=== PATIENT | male | born 1990 | race Caucasian/White ===

== ENCOUNTER 2017-05-10 15:42 | Observation (INO) | payer OTHER ==
[2017-05-10] MEDS ORDERED: ONDANSETRON 4 MG/2 ML VIAL ONE (16:05)
[2017-05-10] MEDS ORDERED: NA CHLORIDE 0.9% 1,000 ML ONE ×3 (16:05→17:32)
[2017-05-10] MEDS ORDERED: LORazepam 2 MG/ML VIAL ONE ×2 (16:09→21:22)
[2017-05-10] MEDS ORDERED: ROCURONIUM 50 MG/5 ML VIAL IV ONE (16:15)
[2017-05-10] MEDS ORDERED: PROPOFOL 1,000 MG/100 ML VIAL IV ONE ×2 (16:17→21:31)
[2017-05-10] MEDS ORDERED: MIDAZOLAM HCL 2 MG/2 ML INJ ONE ×2 (16:21→18:37)
[2017-05-10 16:45] LABS: Absolute Lymphocytes (CBC) 6.9 K/uL (0.7-4.9); Absolute Monocytes 1.3 K/uL (0.1-1.3); Absolute Neutrophil 7.6 K/uL (1.8-8.0); Basophils % 0.6 % (0-1.3); Eosinophils % 4.7 % (0-4.4); Hematocrit 46.1 % (39.6-49.0); Lymphocytes % 41.3 % (15.3-44.8); MCH 30.7 pg (27.0-35.0); MCV 96.4 fL (80-100); MPV 9.3 fL (7.6-11.3); Monocytes % 7.8 % (3.3-12.3); RBC Red Blood Cell Count 4.79 M/uL (4.33-5.43)
[2017-05-10 16:51] LABS: Protime INR 1.03
--- NOTE | 2017-05-10 16:56 | RAD REPORT ---
EXAM DESCRIPTION: CT - Head Brain Wo Cont - 05/10/2017 4:47 pm CLINICAL HISTORY: Seizure COMPARISON: July 2016 TECHNIQUE: Computed axial tomography of the head was obtained. IV contrast was not requested. All CT scans are performed using dose optimization technique as appropriate and may include automated exposure control or mA/KV adjustment according to patient size. FINDINGS: Craniotomy is present. Cystic encephalomalacia within the right temporal lobe is unchanged . An acute intracranial bleed is not seen. . The ventricles are normal in caliber. No extra-axial fluid collection is noted. Fluid within the sinuses/ mastoids is not seen. IMPRESSION: No acute intracranial abnormality is seen. If patient's symptoms persist MRI of the bra in would be recommended.
--- NOTE | 2017-05-10 16:59 | RAD REPORT ---
EXAM DESCRIPTION: Clarissa Single View05/10/2017 4:38 pm CLINICAL HISTORY: Shortness of breath COMPARISON: none FINDINGS: The lungs appear clear of acute infiltrate. The heart is normal size. An endotracheal tube has its tip 4.5 centimeters above the mark. A gastric tube extends 5 centimete rs into the stomach
[2017-05-10 17:31] LABS: Urine Blood 1+ (NEG); Urine Glucose NEGATIVE (NEG); Urine Protein 1+ (NEG); Urine Specific Gravity 1.015 (1.005-1.030)
[2017-05-10 17:42] LABS: Barbiturates NEGATIVE; Benzodiazepines POSITIVE; Cocaine NEGATIVE; METHAMPHETAM NEGATIVE; Opiates NEGATIVE; Phencyclidine NEGATIVE; THC Cannibis NEGATIVE
[2017-05-10] MEDS ORDERED: FOSPHENYTOIN PE 1,000 MG in NA CHLORIDE 0.9% 100 ML IV ONE (18:00)
[2017-05-10 18:15] LABS: ALT/SGPT 22 IU/L (10-60); AST/SGOT 52 IU/L (10-42); Albumin 4.5 g/dL (3.2-5.5); Alkaline Phosphatase 79 IU/L (42-121); BUN Blood Urea Nitrogen 11 mg/dL (6-20); Bicarbonate 23 mEq/L (21-31); Bilirubin Direct 0.3 mg/dL (0-0.2); Bilirubin Total 1.1 mg/dL (0.3-1.2); Glomerular Filtration Rate 51 mL/min (=/>90); Glucose Level 119 mg/dL (65-120); Protein, Total 8.2 g/dL (6.0-8.3); Sodium Level 138 mEq/L (135-145)
[2017-05-10 18:18] LABS: Alcohol Serum/Plasma < 10 mg/dl; Salicylates Level < 4.0 mg/dl (<30)
[2017-05-10 18:20] LABS: Potassium 2.5 mEq/L (3.6-5.0)
[2017-05-10] MEDS ORDERED: FENTANYL CITR 100 MCG/2 ML ONE (18:37)
--- NOTE | 2017-05-10 18:47 | ER ---
Nurse's Notes [facility] Name: Jw Alfaro Age: 27 yrs Sex: Male : 1990 Arrival Date: 05/10/2017 Time: 15:49 Bed 3 Private MD: Diagnosis: Epilepsy and recurrent seizures Presentation: 05/10 15:42 Transition of care: patient was not received from another setting of care. Onset of ss symptoms was May 10, 2017. 15:42 Method Of Arrival: EMS: [facility] ss 15:42 Acuity: BARTOLO 2 ss 15:42 Care prior to arrival: Medication(s) given: Versed 5 mg given IN 177. ss 16:28 Presenting complaint: EMS states: Patient found post ictal and combative just OVER HAULER HELPER. aj Patient has HX of seizures. Historical: - Allergies: 15:58 NKA; ss - Home Meds: 16:02 sertraline 50 mg Oral tab 1 tab once daily [Active]; Lamictal 100 mg Oral tab [Active]; ss zonisamide 100 mg Oral cap 3 in the morning, 3 at night [Active]; - PMHx: 15:58 Seizures; ss - PSHx: 15:58 Vagal nerve stimulator S/P June 2013; Lobectomy; ss - Immunization history:: Adult Immunizations up to date. - Social history:: Smoking status: Patient/guardian denies using tobacco. Screenin:15 Abuse screen: Denies threats or abuse. Denies injuries from another. Nutritional aj screening: No deficits noted. Tuberculosis screening: No symptoms or risk factors identified. Fall Risk None identified. Assessment: 16:00 Reassessment: RT at bedside at this time preparing for intubation. AINSLEY Saxena and ss multiple ER staff at bedside. 16:13 General: Appears distressed, Behavior is unresponsive. Pain: Unable to use pain scale. aj Patient is unresponsive. Neuro: Level of Consciousness is unresponsive, Oriented to none. Respiratory: Airway is compromised Trachea midline Respiratory effort is even, relaxed, Respiratory pattern is symmetrical, tachypnea. GI: Abdomen is flat, non-distended. Derm: Skin is intact, is healthy with good turgor, Skin is pink, warm \T\ dry. normal. 16:40 Reassessment: AINSLEY Peralta updating pt's mother and father on plan of care. Pt in CT ss at this time. 17:50 Reassessment: Patient appears in no apparent distress at this time. Patient and/or ph family updated on plan of care and expected duration. Pain level reassessed. Pt remains sedated/intubated, family at bedside, awaiting lab resullts. 18:30 Reassessment: Patient appears in no apparent distress at this time. No changes from ph previously documented assessment. Patient and/or family updated on plan of care and expected duration. Pain level reassessed. ERP at bedside to speak w/ family about plan of care. 19:33 General: Appears in no apparent distress. Behavior is unresponsive. General: VSS. tl2 Propofol increased to 35 mcg/kg/min. Dr. Griffin at bedside for assessment. Pain: Unable to use pain scale. Patient is unresponsive. Neuro: Level of Consciousness is unresponsive, Oriented to none. Cardiovascular: Heart tones S1 S2 present. Respiratory: Airway via oral intubation Respiratory effort is intubated. GI: No signs and/or symptoms were reported involving the gastrointestinal system. Derm: Skin is pink, warm \T\ dry. 20:01 Reassessment: Pt starting to wake up and pull at tubes. increased propofol to 40 tl2 mcg/kg/min. 20:43 Reassessment: pt stable and ready for transport to floor. tl2 Vital Signs: 15:58 BP 167 / 128; Pulse 153; Resp 30; Pulse Ox 100% on Non-rebreather mask; ss 16:13 BP 151 / 82; Pulse 115; Resp 26; Pulse Ox 100% on ETT vent; aj 16:21 Weight 63.5 kg; Height 5 ft. 9 in. (175.26 cm); aj 16:30 BP 116 / 65; Pulse 108; Resp 20; Temp 96.9(TE); Pulse Ox 98% on ETT vent; ph 16:45 BP 168 / 115; Pulse 115; Resp 18; Pulse Ox 97% on ETT vent; ph 17:00 BP 166 / 105; Pulse 135; Resp 14; Pulse Ox 97% on ETT vent; ph 17:15 BP 152 / 107; Pulse 124; Resp 14; Pulse Ox 97% on ETT vent; ph 17:45 BP 171 / 103; Pulse 99; Resp 16; Temp 96.1(C); Pulse Ox 100% on ETT vent; ph 18:15 BP 137 / 90; Pulse 104; Resp 16; Pulse Ox 99% on ETT vent; ph 18:45 BP 99 / 63; Pulse 90; Resp 14; Pulse Ox 99% on ETT vent; ph 19:00 BP 136 / 90; Pulse 88; Resp 14; Temp 97.1(C); Pulse Ox 100% on ETT vent; ph 19:11 BP 138 / 90; Pulse 110; Resp 17; Pulse Ox 100% on ETT vent; mt 19:33 BP 123 / 79; Pulse 96; Resp 16; Temp 98.6(C); Pulse Ox 100% on ETT vent; tl2 19:49 BP 120 / 84; Pulse 100; Resp 17; Temp 98.8; Pulse Ox 100% on ETT vent; tl2 20:43 BP 129 / 88; Pulse 87; Resp 15; Pulse Ox 100% on ETT vent; tl2 16:21 Body Mass Index 20.67 (63.50 kg, 175.26 cm) aj Lorenzo Coma Score: 16:23 Eye Response: none(1). Verbal Response: incomprehensible(2). Motor Response: withdraws jr8 from pain(4). Total: 7. ED Course: 15:44 Inserted saline lock: 20 gauge in left antecubital area, using aseptic technique. ss ,using aseptic technique. insertion by Opal Murillo RN Blood collected. 15:49 Patient arrived in ED. bd 15:55 [facility]. jr8 15:55 Robson Mathur MD is Attending Physician. jr8 15:56 Triage completed. ss 15:58 Arm band placed on right wrist. ss 16:00 Placed nasal trumpet 22 Fr. aj 16:11 Assisted provider with intubation using 7.5 mm ETT via oral route. ET tube secured at aj 24cm at the Set up intubation tray. Intubated by Fadi SCHMITZ Placement verified by CO2 detector w/ + color change, auscultating bilateral breath sounds, Patient tolerated well. 16:13 Opal Murillo, RN is Primary Nurse. aj 16:15 Patient has correct armband on for positive identification. Placed in gown. Bed in low aj position. Side rails up X2. 16:19 IV discontinued, Patient pulled IV in left ac. aj 16:20 Inserted saline lock: 20 gauge in left hand, using aseptic technique. aj 16:30 Inserted saline lock: 20 gauge in right hand, using aseptic technique. ph 16:36 X-ray completed. Portable x-ray completed in exam room. Patient tolerated procedure la2 well. 16:48 CT completed. Patient tolerated procedure well. Patient moved back from CT. bq 17:08 16 swedish OG. aj 17:27 Osuna cath inserted, using sterile technique, 18 Fr., by me, balloon inflated, to cc2 gravity drainage, clamped. urine specimen collected. returned clear yellow urine. Patient tolerated well. 18:06 EKG done, by ED staff, reviewed by Fadi SCHMITZ. cc2 18:46 Lindsay Medina MD is Hospitalizing Provider. jr8 20:43 Patient admitted, IV remains in place. tl2 Administered Medications: 15:45 Drug: Zofran 4 mg Route: IVP; Site: left antecubital; aj 17:57 Follow up: Response: No adverse reaction ph 15:50 Drug: Ativan 2 mg Route: IVP; Site: left antecubital; aj 17:57 Follow up: Response: No adverse reaction ph 15:54 Drug: NS 0.9% 1000 ml Route: IV; Rate: 1 bolus; Site: left antecubital; aj 19:30 Follow up: Response: No adverse reaction; IV Status: Completed infusion; IV Intake: ph 1000ml 16:03 Drug: Versed 2 mg Route: IVP; Site: left antecubital; aj 17:58 Follow up: Response: No adverse reaction ph 16:10 Drug: Rocuronium 90 mg Route: IVP; Site: left antecubital; aj 17:58 Follow up: Response: No adverse reaction ph 16:10 Drug: Etomidate 20 mg Route: IVP; Site: left antecubital; aj 17:59 Follow up: Response: No adverse reaction ph 16:18 Drug: Propofol 5 mcg/kg/min Route: IV; Rate: calculated rate; Site: left hand; ph 19:48 Follow up: Rate change 35 mcg/kg/min tl2 20:03 Follow up: Rate change 40 mcg/kg/min tl2 20:47 Follow up: IV Status: Infusion continued upon admission tl2 16:21 CANCELLED (Physician Discretion): Etomidate 20 mg IVP once jr8 17:30 Drug: NS 0.9% 1000 ml Route: IV; Rate: 1000 ml; Site: left hand; ph 19:27 Follow up: Response: No adverse reaction; IV Status: Completed infusion; IV Intake: ph 1000ml 18:30 Drug: Fosphenytoin 1 grams Route: IVPB; Site: left hand; ph 18:45 Follow up: Response: No adverse reaction; IV Status: Completed infusion; IV Intake: ph 100ml 18:35 Drug: Versed 2 mg Route: IVP; Site: left hand; ph 19:29 Follow up: Response: No adverse reaction; Patient is sedated ph 18:35 Drug: fentaNYL (PF) 75 mcg Route: IVP; Site: left hand; ph 19:30 Follow up: Response: No adverse reaction ph 18:54 Drug: NS 0.9% 1000 ml Route: IV; Rate: 100 ml/hr; Site: left hand; ph 19:29 Follow up: Response: No adverse reaction; IV Status: Infusion continued upon admission; ph IV Intake: 300ml 19:29 Drug: Potassium Chloride 20 mEq Route: IV; Rate: calculated rate; Site: right hand; tl2 20:46 Follow up: IV Status: Infusion continued upon admission tl2 Intake: 18:45 IV: 100ml; Total: 100ml. ph 19:27 IV: 1000ml; Total: 1100ml. ph 19:29 IV: 300ml; Total: 1400ml. ph 19:30 IV: 1000ml; Total: 2400ml. ph Output: 19:31 Urine: 1700ml (Osuna); Total: 1700ml. ph Outcome: 18:46 Decision to Hospitalize by Provider. jr8 20:43 Admitted to ICU accompanied by nurse, accompanied by tech, family with patient, via tl2 stretcher, room 1, with oxygen, on monitor, with chart, Report called to SHARONDA Lynch 20:43 Condition: stable 20:43 Discharge instructions given to family, Instructed on the need for admit. 20:47 Patient left the ED. tl2 Signatures: Stefania Dias Amanda RN Luana Longoria Shelby, RN RN ss Roszak, Josh, PA PA jr8 Karlene Bee RN RN Saadia Burciaga RN RN 2 CumSatya hylton cc2 Mayela Fried mt, Leslie la2 Corrections: (The following items were deleted from the chart) 16:17 16:16 Placed nasal trumpet 22 Fr aj aj 16:23 16:18 Propofol 5 mcg/kg/min IV at calculated rate in left hand aj aj 19:27 06:18 Propofol 10 mcg/kg/min IV at calculated rate in left hand aj ph 19:27 17:54 Rate change 20 mcg/kg/min ph ph 19:31 17:55 Response: No adverse reaction; IV Status: Completed infusion ph ph
--- NOTE | 2017-05-10 18:47 | EDPHYS ---
Physician Documentation [facility] Name: Jw Alfaro Age: 27 yrs Sex: Male : 1990 Arrival Date: 05/10/2017 Time: 15:49 Bed 3 Private MD: Robson Tony HPI: 05/10 16:23 This 27 yrs old Male presents to ER via EMS with complaints of seizure. jr8 16:23 The patient presents after having a single isolated seizure, that lasted 5 minute(s), jr8 the episode(s) was witnessed, by family. Character of seizure(s): Loss of consciousness: the patient experienced loss of consciousness, Motor activity: generalized, shaking all over, Incontinence: none, Apnea: the patient did not experience apnea, Circulation: the patient did not experience evidence of pulse disturbance. Seizure onset: just prior to arrival. Context: occurred outdoors, occurred while the patient was sitting. Associated injury: The patient did not suffer any apparent associated injury. Current symptoms: decreased level of consciousness, agitation, combativness. It is unknown whether or not the patient has had similar symptoms in the past. The patient has not recently seen a physician. EMS stated that he has longstanding history of seizure including having PHYSICIAN PRACTICE MANAGER shunt, vagal stimulator and having temporal lobectomy for seizures. Stated that the seizure that he had today was much longer then normal and is more combative then normal. Patient not alert to person, place, time, event. Will not respond to any stimulus. Combative upon arrival with dry heaving . Historical: - Allergies: 15:58 NKA; ss - Home Meds: 16:02 sertraline 50 mg Oral tab 1 tab once daily [Active]; Lamictal 100 mg Oral tab [Active]; ss zonisamide 100 mg Oral cap 3 in the morning, 3 at night [Active]; - PMHx: 15:58 Seizures; ss - PSHx: 15:58 Vagal nerve stimulator S/P June 2013; Lobectomy; ss - Immunization history:: Adult Immunizations up to date. - Social history:: Smoking status: Patient/guardian denies using tobacco. ROS: 16:23 Unable to obtain ROS due to patient distress, patient's inability to understand jr8 questions, patient being uncooperative. Exam: 16:23 Head/Face: Normocephalic, atraumatic. Eyes: Pupils equal round and reactive to light, jr8 extra-ocular motions intact. Lids and lashes normal. Conjunctiva and sclera are non-icteric and not injected. Cornea within normal limits. Periorbital areas with no swelling, redness, or edema. ENT: Nares patent. No nasal discharge, no septal abnormalities noted. Tympanic membranes are normal and external auditory canals are clear. Oropharynx with no redness, swelling, or masses, exudates, or evidence of obstruction, uvula midline. Mucous membranes moist. Neck: Trachea midline, supple Cardiovascular: Sinus tachycardia present with a normal S1 and S2. No gallops, murmurs, or rubs. Normal PMI, no JVD. No pulse deficits. Respiratory: Lungs have equal breath sounds bilaterally, clear to auscultation and percussion. Moderate tachypnea present Abdomen/GI: Soft. No distension or tympany. Skin: warm, moist skin. No lesions noted MS/ Extremity: Pulses equal, no cyanosis. Neurovascular intact. Full, normal range of motion. 16:23 Neuro: Orientation: Not oriented to person, place, time, situation, Mentation: responsive to pain, Memory: unable to test, Cranial nerves: Gag reflex present. Motor: moves all fours, seizure activity, is not displayed by the patient, is not currently displayed, but the patient is post-ictal. Vital Signs: 15:58 BP 167 / 128; Pulse 153; Resp 30; Pulse Ox 100% on Non-rebreather mask; ss 16:13 BP 151 / 82; Pulse 115; Resp 26; Pulse Ox 100% on ETT vent; aj 16:21 Weight 63.5 kg; Height 5 ft. 9 in. (175.26 cm); aj 16:30 BP 116 / 65; Pulse 108; Resp 20; Temp 96.9(TE); Pulse Ox 98% on ETT vent; ph 16:45 BP 168 / 115; Pulse 115; Resp 18; Pulse Ox 97% on ETT vent; ph 17:00 BP 166 / 105; Pulse 135; Resp 14; Pulse Ox 97% on ETT vent; ph 17:15 BP 152 / 107; Pulse 124; Resp 14; Pulse Ox 97% on ETT vent; ph 17:45 BP 171 / 103; Pulse 99; Resp 16; Temp 96.1(C); Pulse Ox 100% on ETT vent; ph 18:15 BP 137 / 90; Pulse 104; Resp 16; Pulse Ox 99% on ETT vent; ph 18:45 BP 99 / 63; Pulse 90; Resp 14; Pulse Ox 99% on ETT vent; ph 19:00 BP 136 / 90; Pulse 88; Resp 14; Temp 97.1(C); Pulse Ox 100% on ETT vent; ph 19:11 BP 138 / 90; Pulse 110; Resp 17; Pulse Ox 100% on ETT vent; mt 19:33 BP 123 / 79; Pulse 96; Resp 16; Temp 98.6(C); Pulse Ox 100% on ETT vent; tl2 19:49 BP 120 / 84; Pulse 100; Resp 17; Temp 98.8; Pulse Ox 100% on ETT vent; tl2 20:43 BP 129 / 88; Pulse 87; Resp 15; Pulse Ox 100% on ETT vent; tl2 16:21 Body Mass Index 20.67 (63.50 kg, 175.26 cm) [place] Coma Score: 16:23 Eye Response: none(1). Verbal Response: incomprehensible(2). Motor Response: withdraws jr8 from pain(4). Total: 7. MDM: 15:55 Patient medically screened. jr8 18:45 Data reviewed: vital signs, nurses notes, lab test result(s), EKG, radiologic studies, jr8 CT scan, plain films, and as a result, I will admit patient. Data interpreted: Pulse oximetry: on ventilator is 100 %. Interpretation: normal. Counseling: I had a detailed discussion with the patient and/or guardian regarding: the historical points, exam findings, and any diagnostic results supporting the discharge/admit diagnosis, lab results, radiology results, the need for further work-up and treatment in the hospital. Physician consultation: Jose House MD was called at 18:45, was contacted at 18:45, regarding admission, to the ICU, consult, patient's condition, and will see patient. 05/10 15:52 Order name: Acetaminophen 05/10 15:52 Order name: Basic Metabolic Panel 05/10 15:52 Order name: CBC with Diff 05/10 15:52 Order name: ETOH Level 05/10 15:52 Order name: Hepatic Function 05/10 15:52 Order name: PT-INR 05/10 15:52 Order name: Ptt, Activated 05/10 15:52 Order name: Salicylate 05/10 15:52 Order name: Urine Drug Screen 05/10 16:47 Order name: CBC with Automated Diff; Complete Time: 17:08 [facility] 05/10 16:52 Order name: Protime (+INR); Complete Time: 17:08 [facility] 05/10 16:52 Order name: PTT, Activated Partial Thromb; Complete Time: 17:08 [facility] 05/10 17:27 Order name: Urine Dipstick--Ancillary (enter results) 05/10 17:31 Order name: Urine Dipstick-Ancillary; Complete Time: 17:36 [facility] 05/10 15:52 Order name: CT Head Brain wo Cont 05/10 16:18 Order name: Chest Single View XRAY 05/10 16:57 Order name: CT; Complete Time: 17:08 [facility] 05/10 16:59 Order name: RAD; Complete Time: 17:08 [facility] 05/10 17:42 Order name: Urine Drug Screen; Complete Time: 17:47 [facility] 05/10 18:20 Order name: Basic Metabolic Panel; Complete Time: 18:20 [facility] 05/10 18:20 Order name: Liver (Hepatic) Function; Complete Time: 18:20 [facility] 05/10 18:20 Order name: Acetaminophen Level; Complete Time: 18:20 [facility] 05/10 18:20 Order name: Alcohol Serum/Plasma; Complete Time: 18:20 [facility] 05/10 18:20 Order name: Salicylates Level; Complete Time: 18:20 [facility] 05/10 19:01 Order name: ABG Arterial Blood Gas; Complete Time: 19:04 [facility] 05/10 15:52 Order name: EKG; Complete Time: 15:54 05/10 15:52 Order name: EKG - Nurse/Tech; Complete Time: 19:19 05/10 15:52 Order name: IV Saline Lock; Complete Time: 16:22 05/10 15:52 Order name: Labs collected and sent; Complete Time: 17:27 05/10 15:52 Order name: Urine Dipstick-Ancillary (obtain specimen); Complete Time: 17:27 05/10 17:06 Order name: Labs - recollect needed; Complete Time: 17:53 bd Administered Medications: 15:45 Drug: Zofran 4 mg Route: IVP; Site: left antecubital; aj 17:57 Follow up: Response: No adverse reaction ph 15:50 Drug: Ativan 2 mg Route: IVP; Site: left antecubital; aj 17:57 Follow up: Response: No adverse reaction ph 15:54 Drug: NS 0.9% 1000 ml Route: IV; Rate: 1 bolus; Site: left antecubital; aj 19:30 Follow up: Response: No adverse reaction; IV Status: Completed infusion; IV Intake: ph 1000ml 16:03 Drug: Versed 2 mg Route: IVP; Site: left antecubital; aj 17:58 Follow up: Response: No adverse reaction ph 16:10 Drug: Rocuronium 90 mg Route: IVP; Site: left antecubital; aj 17:58 Follow up: Response: No adverse reaction ph 16:10 Drug: Etomidate 20 mg Route: IVP; Site: left antecubital; aj 17:59 Follow up: Response: No adverse reaction ph 16:18 Drug: Propofol 5 mcg/kg/min Route: IV; Rate: calculated rate; Site: left hand; ph 19:48 Follow up: Rate change 35 mcg/kg/min tl2 20:03 Follow up: Rate change 40 mcg/kg/min tl2 20:47 Follow up: IV Status: Infusion continued upon admission tl2 16:21 CANCELLED (Physician Discretion): Etomidate 20 mg IVP once jr8 17:30 Drug: NS 0.9% 1000 ml Route: IV; Rate: 1000 ml; Site: left hand; ph 19:27 Follow up: Response: No adverse reaction; IV Status: Completed infusion; IV Intake: ph 1000ml 18:30 Drug: Fosphenytoin 1 grams Route: IVPB; Site: left hand; ph 18:45 Follow up: Response: No adverse reaction; IV Status: Completed infusion; IV Intake: ph 100ml 18:35 Drug: Versed 2 mg Route: IVP; Site: left hand; ph 19:29 Follow up: Response: No adverse reaction; Patient is sedated ph 18:35 Drug: fentaNYL (PF) 75 mcg Route: IVP; Site: left hand; ph 19:30 Follow up: Response: No adverse reaction ph 18:54 Drug: NS 0.9% 1000 ml Route: IV; Rate: 100 ml/hr; Site: left hand; ph 19:29 Follow up: Response: No adverse reaction; IV Status: Infusion continued upon admission; ph IV Intake: 300ml 19:29 Drug: Potassium Chloride 20 mEq Route: IV; Rate: calculated rate; Site: right hand; tl2 20:46 Follow up: IV Status: Infusion continued upon admission tl2 Disposition: 05/10/17 18:46 Hospitalization ordered by Lindsay Medina for Inpatient Admission. Preliminary diagnosis is Epilepsy and recurrent seizures. - Bed requested for Intensive Care Unit. - Status is Inpatient Admission. tl2 - Condition is Stable. - Problem is new. - Symptoms have improved. UTI on Admission? No Addendum: 05/12/2017 08:01 Co-signature as Attending Physician, Robson Mathur MD I agree with the assessment and c mcnally plan of care. Signatures: Dispatcher [employer] EDMS Stefania Dias Kimberly, RN RN kl Myers, Amanda, RN RN aj Anderson, Corey, MD MD cha Martinez, Eric em1 Celia Lewis RN RN ss Roszak, Josh, PA PA jr8 Karlene Bee RN RN Saadia Burciaga RN RN tl2 Corrections: (The following items were deleted from the chart) 05/10 16:21 16:21 Etomidate 20 mg IVP once ordered. gal jr8
[2017-05-10 18:58] LABS: Arterial Blood Carboxyhemoglob 0.5 % (0-1.5); Blood Gas Oxyhemoglobin 97.1 % (94-97); Blood O2 Saturation 98.5 % (92-98.5)
[2017-05-10] MEDS ORDERED: KCL 20 MEQ/100 mL IVPB 20 MEQ/100 ML BAG IV ONE (19:42)
[2017-05-10] MEDS ORDERED: NA CHLORIDE 0.9% 500 ML ONE (19:45)
--- NOTE | 2017-05-10 19:57 | P.HP ---
Certification for Inpatient Patient admitted to: Inpatient With expected LOS: >2 Midnights Practitioner: I am a practitioner with admitting privileges, knowledge of patient current condition, hospital course, and medical plan of care. Services: Services provided to patient in accordance with Admission requirements found in Title 42 Section 412.3 of the Code of Federal Regulations Patient History Date of Service: 05/10/17 Reason for admission: seizure disorder History of Present Illness: Mr Alfaro is a 27 years old male with history of recurrent seizure, last week had 3 episodes, s/p vagal nerve stimulator implant; Lobectomy who had a seizure episode today which last for 15 minutes, (usually last for a few minutes). When the paramedics arrived, the patient was post ictal. Then he become combative and he was treated with 5 mg of IM verced. He has no history of fever or chills. No signs of alcohol ingestion or any other ilegal drug. In ER he was unresponsive and was intubated for airway protection. Lab work remarkable for hypokalemia 2.5. Allergies No Known Allergies Allergy (Unverified 08/06/16 11:29) - Past Medical/Surgical History -: seizure disorder -: Vagal nerve stimulator S/P June 2013; Lobectomy - Family History Family History: Reviewed- Non-Contributory - Social History Smoking Status: Never smoker Alcohol use: No CD- Drugs: No Review of Systems is unable to be obtained (patient unresponsive) Physical Examination - Physical Exam General: Unresponsive HEENT: Atraumatic, PERRLA, Mucous membr. moist/pink, Sclerae nonicteric Neck: Supple, 2+ carotid pulse no bruit, No LAD, Without JVD or thyroid abnormality Respiratory: Clear to auscultation bilaterally, Normal air movement Cardiovascular: Regular rate/rhythm, Normal S1 S2 Gastrointestinal: Normal bowel sounds, No tenderness Musculoskeletal: No tenderness Integumentary: No rashes Neurological: Normal tone, Normal reflexes 2+, Normal affect Lymphatics: No axilla or inguinal lymphadenopathy - Studies Laboratory Data (last 24 hrs) 05/10/17 17:30: Sodium 138, Potassium 2.5 L*, BUN 11, Creatinine 1.62 H, Glucose 119, Total Bilirubin 1.1, AST 52 H, ALT 22, Alkaline Phosphatase 79 05/10/17 16:26: PT 12.1, INR 1.03, APTT 29.1 05/10/17 16:26: WBC 16.7 H, Hgb 14.7, Hct 46.1, Plt Count 356 Assessment and Plan - Problems (Diagnosis) (1) Seizure disorder Current Visit: Yes Status: Acute (2) Hypokalemia Current Visit: Yes Status: Acute (3) Acute kidney injury superimposed on CKD Current Visit: Yes Status: Acute - Plan The patient has been loaded with fosphenytoin, and will be admitted to ICU. Dr House has been consulted and recommended to continue current medical treatment. He will follow up the patient while is in the hospital. Will replace potassium per protocol. - Advance Directives Does patient have a Living Will: No Does patient have a Durable POA for Healthcare: No - Code Status/Comfort Care Code Status Assessed: Yes Code Status: Full Code
[2017-05-10] MEDS: NA CHLORIDE 0.9% 1,000 ML IV SCH ×2 (20:53→23:42)
[2017-05-10] MEDS ORDERED: ONDANSETRON 4 MG/2 ML VIAL IV PRN (20:53)
[2017-05-10] MEDS ORDERED: HALOPERIDOL LACT 5 MG/ML INJ IV PRN (21:34)
[2017-05-10] MEDS ORDERED: MIDAZOLAM HCL 2 MG/2 ML INJ IV PRN (21:34)
[2017-05-10] MEDS ORDERED: NA CHLORIDE 0.9% 250 ML IV PRN (21:34)
[2017-05-10] MEDS ORDERED: PROPOFOL 1,000 MG/100 ML VIAL IV PRN (21:34)
[2017-05-10] MEDS: KCL 20 MEQ/100 mL IVPB 20 MEQ/100 ML BAG IV SCH (22:19)
[2017-05-11] MEDS: KCL 20 MEQ/100 mL IVPB 20 MEQ/100 ML BAG IV SCH (00:14)
[2017-05-11] MEDS: FENTANYL CITR 100 MCG/2 ML IV PRN ×2 (00:49→06:15)
[2017-05-11] MEDS: PHENYTOIN NA 100 MG/2 ML IV SCH ×3 (00:49→16:54)
[2017-05-11] MEDS: LORazepam 2 MG/ML VIAL IV PRN ×2 (03:55→07:19)
[2017-05-11 05:09] LABS: Absolute Lymphocytes (CBC) 3.5 K/uL (0.7-4.9); Absolute Monocytes 1.9 K/uL (0.1-1.3); Absolute Neutrophil 10.4 K/uL (1.8-8.0); Basophils % 0.3 % (0-1.3); Eosinophils % 2.4 % (0-4.4); Hematocrit 38.7 % (39.6-49.0); Lymphocytes % 21.6 % (15.3-44.8); MCH 31.3 pg (27.0-35.0); MCV 93.7 fL (80-100); MPV 8.3 fL (7.6-11.3); Monocytes % 11.6 % (3.3-12.3); RBC Red Blood Cell Count 4.14 M/uL (4.33-5.43)
--- NOTE | 2017-05-11 05:14 | EKG ---
Test Date: 2017-05-10 Test Time: 17:37:48 Internist Medical Doctor Md: LAURIE MEASUREMENT RESULTS: Intervals: Rate: 122 MD: 152 QRSD: 90 QT: 332 QTc: 473 [place]: P: 61 MD: 152 QRS: 52 T: 40 INTERPRETIVE STATEMENTS: Sinus tachycardia Abnormal ECG Compared to ECG 08/06/2016 09:36:02 no significant change from previous ECG Electronically Signed On 05-11-17 05:13:48 CDT by Cirilo Deleon
[2017-05-11 05:51] LABS: Potassium 3.5 mEq/L (3.6-5.0)
[2017-05-11 06:42] LABS: Arterial Blood Carboxyhemoglob 1.3 % (0-1.5); Blood Gas Oxyhemoglobin 89.1 % (94-97); Blood O2 Saturation 92.2 % (92-98.5)
[2017-05-11] MEDS ORDERED: KCL 20 MEQ/100 mL IVPB 20 MEQ/100 ML BAG IV SCH ×2 (07:00→09:00)
--- NOTE | 2017-05-11 07:54 | RAD REPORT ---
EXAM DESCRIPTION: RAD - Chest Single View - 05/11/2017 6:47 am CLINICAL HISTORY: Intubation, respiratory distress COMPARISON: May 10 TECHNIQUE: AP portable chest image was obtained 0616 hours . FINDINGS: Endotracheal tube is in good position T3 level approximately 3 cm above the mark. NG tub e extends below the diaphragm, off the field of view. Neurostimulator battery pack overlies the later al left chest. Lung volumes are relatively low. Right lung field is clear. No failure, volume overload or diffuse pu lmonary edema pattern. Retrocardiac left base assessment is limited. There are findings questionable for small infiltrate or atelectasis. No change from prior imaging. Heart and vasculature are normal. No measurable pleural effusion and no pneumothorax. No gross bony abnormality seen. No acute aortic f indings suspected. IMPRESSION: Stable chest from prior day imaging. Retrocardiac left base assessment remains limited. Left base atelectasis and/ or infiltrate are not e xcluded.
[2017-05-11] MEDS: ENOXAPARIN 40 MG/0.4 ML SQ SCH (08:21)
[2017-05-11] MEDS: FAMOTIDINE 20 MG/2 ML VIAL IV SCH ×2 (08:21→20:27)
[2017-05-11] MEDS: NA CHLORIDE 0.9% 1,000 ML IV SCH ×3 (12:04→18:43)
[2017-05-11] MEDS: lamoTRIgine 100 MG TAB PO SCH ×2 (12:13→20:26)
[2017-05-11] MEDS: SERTRALINE HCL 50 MG TAB PO SCH (12:13)
--- NOTE | 2017-05-11 16:02 | P.PN ---
Subjective Date of Service: 05/11/17 Primary Care Provider: No PCP Chief Complaint: seizure disorder Pt seen and examined at bedside with RN. Chart reviewed. Case D/W with Neurology. Pt extubated now and doing well. Still sleepy. Family insisting on Dicharge home. However, Educated on the importance of observation as pt just got extubated and Neurology is consulted. Family stated they will leave AMA. Mother to Bring POA before she can sign papers. Again educated on importance of staying to ensure no complication arise post extubation and no further seizure is noted. Review of Systems General: As per HPI Physical Examination - Vital Signs Temperature: 98.9 F Blood Pressure: 101/55 Pulse: 79 Respirations: 19 Pulse Ox (%): 96 - Physical Exam General: In no apparent distress, Other (Asleep but Easly Arousable) HEENT: Atraumatic Neck: Supple Respiratory: Clear to auscultation bilaterally, Normal air movement Cardiovascular: Regular rate/rhythm, Normal S1 S2 Gastrointestinal: Normal bowel sounds, No tenderness Musculoskeletal: No tenderness Integumentary: No rashes Neurological: Normal speech, Normal tone, Normal affect Lymphatics: No axilla or inguinal lymphadenopathy - Studies Laboratory Data (last 24 hrs) 05/11/17 04:17: Magnesium 2.2 05/11/17 04:17: Sodium 139, Potassium 3.5 L, BUN 8, Creatinine 1.11, Glucose 85 05/11/17 04:17: WBC 16.3 H, Hgb 12.9 L, Hct 38.7 L D, Plt Count 255 D 05/10/17 17:30: Sodium 138, Potassium 2.5 L*, BUN 11, Creatinine 1.62 H, Glucose 119, Total Bilirubin 1.1, AST 52 H, ALT 22, Alkaline Phosphatase 79 05/10/17 16:26: PT 12.1, INR 1.03, APTT 29.1 05/10/17 16:26: WBC 16.7 H, Hgb 14.7, Hct 46.1, Plt Count 356 Medications List Reviewed: Yes Assessment & Plan - Problems (Diagnosis) (1) Respiratory failure Current Visit: Yes Status: Acute Plan: Now Extubated Doing well overall. ON RA saturating 100% Qualifiers: Chronicity: acute Respiratory failure complication: unspecified whether with hypoxia or hypercapnia Qualified Code(s): J96.00 - Acute respiratory failure, unspecified whether with hypoxia or hypercapnia (2) Seizure disorder Current Visit: Yes Status: Acute Plan: Chronic Seizure d/o. Had an episode yesterday -Was on Fosphynotin and now DC. -Neurology consulted. -Restarted on Home medication with seizure precautions (3) Acute kidney injury superimposed on CKD Current Visit: Yes Status: Resolved Discharge Plan: Home Plan to discharge in: 24 Hours - Code Status/Comfort Care Code Status Assessed: Yes Critical Care: No
[2017-05-11] MEDS ORDERED: ACETAMINOPHEN 325 MG TABLET PO PRN (17:08)
[2017-05-11] MEDS: ZONISAMIDE PO SCH (20:28)
[2017-05-12] MEDS: PHENYTOIN NA 100 MG/2 ML IV SCH ×2 (00:15→07:37)
[2017-05-12] MEDS: NA CHLORIDE 0.9% 1,000 ML IV SCH ×2 (02:53→07:31)
[2017-05-12 05:25] LABS: BUN Blood Urea Nitrogen 6 mg/dL (6-20); Bicarbonate 22 mEq/L (21-31); Glomerular Filtration Rate > 90 mL/min (=/>90); Glucose Level 78 mg/dL (65-120); Potassium 3.7 mEq/L (3.6-5.0); Sodium Level 139 mEq/L (135-145)
[2017-05-12] MEDS: FAMOTIDINE 20 MG/2 ML VIAL IV SCH (07:37)
[2017-05-12] MEDS: SERTRALINE HCL 50 MG TAB PO SCH (07:56)
[2017-05-12] MEDS: lamoTRIgine 100 MG TAB PO SCH (07:57)
[2017-05-12] MEDS: ENOXAPARIN 40 MG/0.4 ML SQ SCH (07:57)
[2017-05-12] MEDS ORDERED: POTASSIUM CL SA 10 MEQ TAB PO ONE (08:00)
[2017-05-12 08:22] LABS: Absolute Lymphocytes (CBC) 3.2 K/uL (0.7-4.9); Absolute Monocytes 0.8 K/uL (0.1-1.3); Absolute Neutrophil 6.8 K/uL (1.8-8.0); Basophils % 0.7 % (0-1.3); Hematocrit 42.7 % (39.6-49.0); MCH 31.1 pg (27.0-35.0); MCV 94.7 fL (80-100); MPV 8.2 fL (7.6-11.3); Monocytes % 7.4 % (3.3-12.3); RBC Red Blood Cell Count 4.51 M/uL (4.33-5.43)
[2017-05-12] MEDS: ZONISAMIDE PO SCH (09:00)
[2017-05-12] MEDS ORDERED: ETOMIDATE 20 MG/10 ML VIAL IV ONE (09:55)
--- NOTE | 2017-05-13 02:56 | DS ---
Date of Discharge: 05/12/2017 Crystal Inspector: Dr. House with Neurology. Admitting Diagnoses: 1.Seizure disorder. 2.Hypokalemia. 3.Acute kidney injury superimposed on chronic kidney disease. Discharge Diagnoses: 1.Acute respiratory failure, extubated. 2.Seizure disorder. No further seizure episodes. 3.Acute kidney injury superimposed on chronic kidney disease. Hospital Course: The patient is a 27-year-old male who has a past medical history of recurrent seizu res, who comes in with seizure episode, which lasted for 15 minutes. The patient was postictal, comb ative, received 5 mg of IM Versed. The patient was intubated due to airway protection. The patient was found to have low potassium at 2.5, creatinine was elevated at 1.62. The patient was loaded with fosphenytoin. Dr. House with Neurology was consulted. His potassium was replaced. Repeat potas sium levels were normalized. The patient did have an elevated white blood cell count which essential ly normalized, likely secondary to seizure episode. The patient was extubated fairly quickly and rem ained stable on room air. The patient denies any further seizure episodes. His drug screen was posi tive for benzodiazepines. The patient was doing well. The patient was then cleared for discharge fr om Neurology standpoint. The patient sees Dr. House on a regular basis. He recommended the patie nt to resume his home dose of antiseizure medicines and to follow up with him in his office. The pat iecara was then discharged home in a stable condition. Activity: Seizure precautions. No swimming, driving, or unattended heights. Medications: As per medication reconciliation list. Followup: Follow up with primary care physician in 2 to 3 days. Follow up with neurologist, Dr. Angela, in 1 to 2 weeks. Return to ER for worsening condition. Diet: Regular. Total time spent discharging patient was 35 minutes. Physical Examination: General: Awake, alert, oriented x3. No acute distress. CV: S1, S2. No murmurs. Peripheral pulses present. Respiratory: Clear to auscultation bilaterally. No wheezing. Abdomen: Soft, nontender, nondistended. Positive bowel sounds. Extremities: No clubbing, cyanosis, or edema. Neurologic: Nonfocal. SA/MODL Voice ID: [id number] Report ID: [id number]
== END 2017-05-12 09:56 | disposition home or self-care (01) ==
LOC: ER 15:42 → ERHOLD 19:35 → 3RD-ICU 20:07 → INTOOBSV 05-11 12:40 → OBSVTOIN 05-11 12:40
PROVIDERS: ADMIT Internal Medicine; ATTEND Internal Medicine
PROC: 0BH17EZ Insertion of Endotracheal Airway into Trachea, Via Natural or Artificial Opening (ICD-10-PCS; principal; 2017-05-10)
PROC: 5A1935Z Respiratory Ventilation, Less than 24 Consecutive Hours (ICD-10-PCS; 2017-05-10)
DX: J96.00 Acute respiratory failure, unspecified whether with hypoxia or hypercapnia (principal); G40.909 Epilepsy, unspecified, not intractable, without status epilepticus; E87.6 Hypokalemia; N17.9 Acute kidney failure, unspecified
CPT/HCPCS: 31500 ×2; 36415 ×2; 51702; 70450; 71045 ×2; 80048 ×3; 80076; 80307 ×9; 80320; 80329 ×2; 81003; 82805 ×2; 83735 ×2; 85025 ×3; 85610; 85730; 93005; 94002 ×3; 99291; 99292; J1165 ×5; J1630; J1650 ×2; J2250 ×3; J2405; J3010 ×2; J7030 ×7; Q2009

== ENCOUNTER 2018-08-02 16:16 | Emergency (ER) | payer OTHER ==
--- OUTSIDE RECORDS SUMMARY | 2018-08-02 16:28 | XMS REPORT | Continuity of Care Document ---
:1990 Author Organization Interface Problems Problem Status Onset Classification Date Comments Source Date Reported EPILEPSY WITH Active 08/24/19 [facility] STATUS 17 Medical EPILEPTICUS Center FRANCO Active 08/24/19 [facility] BILLING LFLT 17 Medical #[id number] Center SEIZURES Active 08/24/19 [facility] 17 Medical Center STATUS Active 08/07/19 [facility] EPLLEPTICUS [address] [place] [address] Center LOCALIZATION-REL Active 09/15/19 [facility] ATED SYMPTOMATIC 15 Medical EPILEPS Center INTRACTABLE Active 04/09/19 [facility] SEIZURE 14 [facility] Center HEMATOMA Active 03/11/[address] Center 345.41 Active 06/18/[address] Viral Resolved 02/17/19 Problem 08/29/2016 [facility] encephalitis [address] [place] [address] Center cranial stenosis Resolved 02/17/18 Problem 12/25/[address] Depression Active Problem 08/29/2016 [facility] Hematoma Active Problem 08/29/2016 [facility] Seizure disorder Active Problem 08/29/2016 [facility] Varicocele Resolved Problem 08/29/2016 [facility] EPILEPSY, UNSP, Active [facility] NOT INTRACTABLE, Medical WITH ST Center SUBDURAL Active [facility] HEMORRHAGE [facility] Center PSYMOTR EPIL W Active [facility] Center RESEARCH Active [facility] FEBRILE Active [facility] CONVULSIONS NOS [facility] Medications Medication Details Route Status Patient Ordering Order Source Instructions Provider Date Sertraline 50 mg, 1 tab, Inactive 08/26/ [facility] Route: PO, Drug 2016 Medical form: TAB, Center Daily, Dosing Weight 71.8, kg, Start date: 08/26/16 9:00:00 CDT, Duration: 30 day, Stop date: 09/24/16 9:00:00 CDTNotes: (Same as: Zoloft) Potassium 40 mEq, 30 mL, Inactive [facility] Chloride 1.33 Route: PO, Drug 2016 Medical MEQ/ML Oral form: LIQ, ONCE, Center Solution Dosing Weight 71.8, kg, Start date: 08/26/16 7:48:00 CDT, Stop date: 08/26/16 7:48:00 CDTNotes: (Same as: Potassium Chloride) Sodium Chloride 500 mL, 500 Inactive [place] 0.154 MEQ/ML ml/hr, Infuse 2017 Medical Injectable Over: 1 hr, Center Solution Route: IV, 500, Drug form: INJ, ONCE, Priority: STAT, Dosing Weight 71.8 kg, Start date: 08/25/16 18:28:00 CDT, Duration: 1 doses or times, Stop date: 08/25/16 18:28:00 CDT zonisamide 100 300 mg=3 cap, Active [place] mg oral capsule PO, Q12H, # 180 2017 Medical cap, 3 Center Refill(s), Pharmacy: [facility] [place] lamotrigine 100 300 mg=3 tab, Active [place] MG Oral Tablet PO, BID, # 180 2017 Medical tab, 3 Center Refill(s), Pharmacy: [facility] [place] perampanel 2 mg 2 mg=1 tab, PO, Active [place] oral tablet Bedtime, # 30 2017 Medical tab, [facility] 1 tab, No Longer [place] Route: PO, Drug Active 2016 Medical Form: TAB, Center Dosing Weight 71.8, kg, Daily, Start date: 08/25/16 9:00:00 CDT, Duration: 30 day, Stop date: 09/23/16 9:00:00 CDTNotes: (Same as: Senokot) Docusate 50 mg, 1 cap, No Longer [place] Route: PO, Drug Active 2016 Medical form: CAP, BID, Center Dosing Weight 71.8, kg, Start date: 08/25/16 9:00:00 CDT, Duration: 30 day, Stop date: 09/23/16 17:00:00 CDTNotes: (Same as: Colace) (Do Not Crush) perampanel 2 mg, 1 tab, No Longer [place] Route: PO, Drug Active 2016 Medical form: TAB, Center Bedtime, Start date: 08/24/16 21:00:00 CDT, Duration: 30 day, Stop date: 09/22/16 21:00:00 CDTNotes: (Same as: Fycompa) Non-formulary Fycompa Fycompa, 2 mg, Inactive [place] Route: PO, 2017 Medical Bedtime, Center 08/24/16 21:00:00 CDT, Duration: 30 day, Stop date: 09/22/16 21:00:00 CDT Tylenol 650 mg, 2 tab, No Longer [place] Route: PO, Drug Active 2016 Medical form: TAB, ONCE, Center Dosing Weight 71.8, kg, PRN Pain Score 1-3, Start date: 08/24/16 20:12:00 CDTNotes: Do not exceed 4 gm/day. (Same as: Tylenol) Phenytoin 50 mg, Route: Inactive [place] PO, BID, Dosing 2017 Medical Weight 71.8, kg, Center Start date: 08/24/16 17:00:00 CDT, Duration: 30 day, Stop date: 09/23/16 9:00:00 CDT Phenytoin 50 mg, Route: Inactive [facility] PO, Drug form: 2017 Medical CAP, Q8H, Dosing Center Weight 71.8, kg, Start date: 08/24/16 16:00:00 CDT, Duration: 30 day, Stop date: 09/23/16 8:00:00 CDT Phenytoin 100 mg, 2 mL, Inactive [facility] Route: IVP, Drug 2016 Medical form: INJ, Center Q8Hnow, Dosing Weight 90, kg, Start date: 08/24/16 10:00:00 CDT, Duration: 30 day, Stop date: 09/23/16 2:00:00 CDTNotes: (Same as: Dilantin) Do not infuse greater than 50 mg/min. MEDICATION WASTE Product Size: 100 mg Product Wasted: ___ mg zonisamide 300 mg, 3 cap, No Longer [place] Route: PO, Drug Active 2016 Medical form: CAP, Center Daily, Dosing Weight 90, kg, Start date: 08/24/16 9:00:00 CDT, Duration: 30 day, Stop date: 09/22/16 9:00:00 CDTNotes: Contraindicated in patients with hypersensitivity to sulfonamides. (Same As: Zonegran) lamotrigine 300 mg, 3 tab, No Longer [place] Route: PO, Drug Active 2016 Medical form: TAB, BID, Center Dosing Weight 90, kg, Start date: 08/24/16 9:00:00 CDT, Duration: 30 day, Stop date: 09/22/16 17:00:00 CDTNotes: (Same as:LaMICtal) heparin 5,000 unit, 1 No Longer [place] mL, Route: Active 2016 Medical SUB-Q, Drug Center form: INJ, Q8H, Dosing Weight 90, kg, Start date: 08/24/16 8:00:00 CDT, Duration: 30 day, Stop date: 09/23/16 0:00:00 CDTNotes: porcine heparin Calcium 500 mg, 1 tab, No Longer [place] Carbonate 500 MG Route: PO, Drug Active 2016 Medical Chewable Tablet form: CHEWTAB, Center PRN, Dosing Weight 71.8, kg, PRN Abnormal Lab Result, FOR ICU USE ONLY, Start date: 08/24/16 5:58:00 CDT, Duration: 30 day, Stop date: 09/23/16 5:57:00 CDTNotes: (Same As: Tums) Calcium Carbonate 500 at=191 mg elemental calcium Dose= mg calcium carbonate ( mg elemental calcium) potassium 30 mmol, 10 mL, No Longer [place] phosphate + Route: IVPB, Active 2016 Medical sodium chloride PRN, Dosing Center 0.9% INJ 250 mL Weight 71.8, kg, PRN Abnormal Lab Result, Start date: 08/24/16 5:58:00 CDT, Duration: 30 day, Stop date: 09/23/16 5:57:00 CDT, FOR ICU USE ONLYNotes: (Same as: K Phosphate.) 1 mMol phoshate has 1.47 mEq potassium Infuse over 4 hours potassium 2 pkt, Route: No Longer [place] phosphate-sodium PO, Drug Form: Active 2016 Medical phosphate 250 PDR/REC, Dosing Center mg-280 mg-160 mg Weight 71.8, kg, oral powder for PRN, PRN reconstitution Abnormal Lab Result, FOR ICU USE ONLY, Start date: 08/24/16 5:58:00 CDT, Duration: 30 day, Stop date: 09/23/16 5:57:00 CDTNotes: (Same as: Phos-NaK) Each 1.5 gm pkt has 250mg phosphorous. Mix w/2.5oz water and stir. Magnesium 2 gm, 50 mL, No Longer [place] Sulfate Route: IVPB, Active 2016 Medical Drug form: INJ, Center PRN, Dosing Weight 71.8, kg, PRN Abnormal Lab Result, Start date: 08/24/16 5:58:00 CDT, Duration: 30 day, Stop date: 09/23/16 5:57:00 CDT, FOR ICU USE ONLYNotes: WASTE: F/P - Sink; E - Municipal Trash Bin Magnesium Oxide 800 mg, 2 tab, No Longer [place] Route: PO, Drug Active 2016 Medical form: TAB, PRN, Center Dosing Weight 71.8, kg, PRN Abnormal Lab Result, FOR ICU USE ONLY, Start date: 08/24/16 5:58:00 CDT, Duration: 30 day, Stop date: 09/23/16 5:57:00 CDTNotes: (Same as: Mag-Ox 400) Magnesium oxide [id number] elemental magnesium Dose=____mg magnesium oxide (___mg elemental magnesium) Calcium 1 gm, 10 mL, No Longer [place] Gluconate Route: IVPB, Active 2016 Medical PRN, Dosing Center Weight 71.8, kg, PRN Abnormal Lab Result, Start date: 08/24/16 5:58:00 CDT, Duration: 30 day, Stop date: 09/23/16 5:57:00 CDT, FOR ICU USE ONLYNotes: WASTE: F/P - Sink; E - Municipal Trash Bin potassium 20 mEq, 15 mL, No Longer [place] chloride Route: [place], Drug Active 2016 Medical form: LIQ, PRN, Center Dosing Weight 71.8, kg, PRN Abnormal Lab Result, Start date: 08/24/16 5:58:00 CDT, Duration: 30 day, Stop date: 09/23/16 5:57:00 CDT, FOR ICU USE ONLYNotes: (Same as: Potassium Chloride) sodium phosphate 15 mmol, 5 mL, No Longer [place] + sodium Route: IVPB, Active 2016 Medical chloride 0.9% PRN, Dosing Center INJ 250 mL Weight 71.8, kg, PRN Abnormal Lab Result, Start date: 08/24/16 5:58:00 CDT, Duration: 30 day, Stop date: 09/23/16 5:57:00 CDT, FOR ICU USE ONLY sodium chloride 1,000 mL, Rate: No Longer [place] 0.9% 1000 ml INJ 100 ml/hr, Active 2016 Medical 1,000 mL Infuse over: 10 Center hr, Route: IV, Dosing Weight 71.8 kg, Total Volume: 1,000, Start date: 08/24/16 5:57:00 CDT, Duration: 30 day, Stop date: 09/23/16 5:56:00 CDT Sodium Chloride 1,000 mL, 1,000 Inactive [place] 0.154 MEQ/ML ml/hr, Infuse 2017 Medical Injectable Over: 1 hr, Center Solution Route: IV, 1,000, Drug form: INJ, ONCE, Priority: STAT, Dosing Weight 71.8 kg, Start date: 08/24/16 5:57:00 CDT, Duration: 1 doses or times, Stop date: 08/24/16 5:57:00 CDT Lorazepam 1 mg, 0.5 mL, No Longer [place] Route: IVP, Drug Active 2016 Medical form: INJ, Center Q15Min, Dosing Weight 90, kg, PRN Seizure, Start date: 08/24/16 0:50:00 CDT, Duration: 30 day, Stop date: 09/23/16 0:49:00 CDTNotes: (Same as: Ativan) Fentanyl 1,000 microgram, No Longer [place] 20 mL, Rate: Active 2016 Medical Titrate, Start Center Dose: 50 microgram/hr, Titration: 25 microgram/hour every 15 minutes, Goal(s): RASS, Max Dose: 300 microgram/hr, Route: IV, Dosing Weight 90 kg, Total Volume: 20, Start date: 08/23/16 23:21:00 CDT, Duration... fosphenytoin 2,000 mg, Route: Inactive [place] IVPB, ONCE, 2016 Medical Dosing Weight Center 90, kg, Priority: STAT, Start date: 08/23/16 23:13:00 CDT, Stop date: 08/23/16 23:13:00 CDT, Loading dose Sodium Chloride 1,000 mL, Infuse Inactive [place] 0.154 MEQ/ML Over: 1 hr, 2016 Medical Injectable Route: IV, ONCE, Center Solution Priority: STAT, Dosing Weight 90 kg, Start date: 08/23/16 22:03:00 CDT, Duration: 1 doses or times, Stop date: 08/23/16 22:03:00 CDT Propofol 10 1,000 mg, 100 No Longer [place] MG/ML Injectable mL, Rate: Active 2016 Medical Suspension Titrate, Start Center Dose: 5 microgram/kg/min , Titration: 5 microgram/kg/min every 15 min, Goal(s): rass -1, Max Dose: 50 microgram/kg/min , Route: IV, Dosing Weight 90 kg, Total Volume: 100, Start date: 08/23/16 21:59:00 CDT, Stop da...Notes: If Diprivan - change bottle & tubing every 12 hr Per state nursing law propofol can only be given by a nurse if patient is intubated or being intubated (unless the nurse is a [employer] ENGINEER). Same as: Diprivan zonisamide 100 300 mg=3 cap, Active [place] mg oral capsule PO, Q12H, 0 2016 Medical Refill(s) Center Tylenol 650 mg, 2 tab, Inactive [place] Route: PO, Drug 2016 Medical form: TAB, ONCE, Center Dosing Weight 73.381, kg, PRN For Temp > 100.4 F, Start date: 08/08/16 7:51:00 CDTNotes: Do not exceed 4 gm/day. (Same as: Tylenol) Potassium 40 mEq, 30 mL, Inactive [place] Chloride 1.33 Route: PO, Drug 2016 Medical MEQ/ML Oral form: LIQ, ONCE, Center Solution Dosing Weight 73.381, kg, Start date: 08/08/16 6:04:00 CDT, Stop date: 08/08/16 6:04:00 CDTNotes: (Same as: Potassium Chloride) Miralax 17 gm, 1 pkt, No Longer [place] Route: PO, Drug Active 2016 Medical form: PWDR, Center Daily, Dosing Weight 72.727, kg, Start date: 08/07/16 9:00:00 CDT, Duration: 30 day, Stop date: 09/05/16 9:00:00 CDTNotes: Dissolve in 8 oz of water or juice. (Same as: Miralax) Docusate 100 mg, 10 mL, No Longer [place] Route: PO, Drug Active 2016 Medical form: LIQ, Center Daily, Dosing Weight 72.727, kg, Start date: 08/07/16 9:00:00 CDT, Duration: 30 day, Stop date: 09/05/16 9:00:00 CDTNotes: (Same as: Colace) zonisamide 300 mg, 3 cap, No Longer [place] Route: PO, Drug Active 2016 Medical form: CAP, Q12H, Center Dosing Weight 72.727, kg, Start date: 08/07/16 9:00:00 CDT, Duration: 30 day, Stop date: 09/05/16 21:00:00 CDTNotes: Contraindicated in patients with hypersensitivity to sulfonamides. (Same As: Zonegran) Lamictal 300 mg, 3 tab, No Longer [place] Route: PO, Drug Active 2016 Medical form: TAB, Q12H, Center Dosing Weight 72.727, kg, Start date: 08/07/16 9:00:00 CDT, Duration: 30 day, Stop date: 09/05/16 21:00:00 CDTNotes: (Same as:LaMICtal) heparin 5,000 unit, 1 No Longer [place] mL, Route: Active 2016 Medical SUB-Q, Drug Center form: INJ, Q8H, Dosing Weight 72.727, kg, Start date: 08/07/16 0:00:00 CDT, Duration: 30 day, Stop date: 09/05/16 16:00:00 CDTNotes: porcine heparin sodium chloride 1,000 mL, Rate: No Longer [place] 0.9% 1000 ml INJ 75 ml/hr, Infuse Active 2017 Medical 1,000 mL over: 13.3 hr, Center Route: IV, Dosing Weight 72.727 kg, Total Volume: 1,000, Start date: 08/06/16 21:42:00 CDT, Duration: 30 day, Stop date: 09/05/16 21:41:00 CDT Keppra 1,000 mg, Route: No Longer [place] IVPB, Q12H, Active 2016 Medical Dosing Weight Center 72.727, kg, Start date: 08/06/16 21:00:00 CDT, Duration: 30 day, Stop date: 09/05/16 9:00:00 CDTNotes: Same as Keppra Mix with 100 mL NS, LR or D5W MEDICATION WASTE Product Size: 500 mg Product Wasted: ___ mg sertraline 50 mg 50 mg=1 tab, PO, Active [place] oral tablet Daily, # 30 tab, 2016 Medical 0 Refill(s) Center zonisamide 100 300 mg=3 cap, No Longer [place] mg oral capsule PO, BID, # 270 Active 2016 Medical cap, 0 Refill(s) Center lamotrigine 100 3 tablets, PO, Active [facility] MG Oral Tablet BID, # 60 tab, 0 2017 Medical [Lamictal] Refill(s) Center Insulin regular 2 unit, 0.02 mL, No Longer [place] Route: SUB-Q, Active 2016 Medical Drug form: [facility] [place] TID-Before Meals, Dosing Weight 72.727, kg, PRN Blood Glucose Results, Start date: 08/06/16 17:28:00 CDT, Duration: 30 day, Stop date: 09/05/16 17:27:00 CDTNotes: (Same as: Humulin R) Roll in palms of hands gently; Do not shake vigorously. "single patient use only" (Restricted to patients requiring a dose > 60 units) WASTE: F/P - Black; E - Municipal Trash Bin Stable for 28 days at room temperature Expires in days from Da te Glucagon 1 mg, Route: IM, No Longer [place] Drug form: Active 2017 Medical PDR/INJ, PRN, Center Dosing Weight 72.727, kg, PRN Blood Glucose Results, Start date: 08/06/16 17:28:00 CDT, Duration: 30 day, Stop date: 09/05/16::00 CDT Dextrose 50% 25 gm, 50 mL, No Longer [place] Syringe Route: IVP, Drug Active 2017 Medical Form: INJ, Center Dosing Weight 72.727, kg, PRN, PRN Blood Glucose Results, Start date: 08/06/16 17:28:00 CDT, Duration: 30 day, Stop date: 09/05/16 17::00 CDT Calcium 1,000 mg, 2 tab, No Longer [place] Carbonate 500 MG Route: PO, Drug Active 2017 Medical Chewable Tablet form: CHEWTAB, Center PRN, Dosing Weight 72.727, kg, PRN Abnormal Lab Result, FOR ICU USE ONLY, Start date: 08/06/16 17:27:00 CDT, Duration: 30 day, Stop date: 09/05/16 17::00 CDTNotes: (Same As: Tums) Calcium Carbonate 500 uh=356 mg elemental calcium Dose= mg calcium carbonate ( mg elemental calcium) potassium 10 mEq, 50 mL, No Longer [place] chloride Route: IVPB, Active 2017 Medical Drug form: INJ, Center PRN, Dosing Weight 72.727, kg, PRN Abnormal Lab Result, Via peripheral line, Start date: 08/06/16 17:27:00 CDT, Duration: 30 day, Stop date: 09/05/16 17::00 CDT, FOR ICU USE ONLYNotes: (Same as: KCL) Infuse over 2 hours. potassium 2 pkt, Route: No Longer [place] phosphate-sodium PO, Drug Form: Active 2017 Medical phosphate 250 PDR/REC, Dosing Center mg-280 mg-160 mg Weight 72.727, oral powder for kg, PRN, PRN reconstitution Abnormal Lab Result, FOR ICU USE ONLY, Start date: 08/06/16 17:27:00 CDT, Duration: 30 day, Stop date: 09/05/16 17:26:00 CDTNotes: (Same as: Phos-NaK) Each 1.5 gm pkt has 250mg phosphorous. Mix w/2.5oz water and stir. potassium 30 mmol, 10 mL, No Longer [place] phosphate + Route: IVPB, Active 2016 Medical sodium chloride PRN, Dosing Center 0.9% INJ 250 mL Weight 72.727, kg, PRN Abnormal Lab Result, Start date: 08/06/16 17:27:00 CDT, Duration: 30 day, Stop date: 09/05/16 17:26:00 CDT, FOR ICU USE ONLYNotes: (Same as: K Phosphate.) 1 mMol phoshate has 1.47 mEq potassium Infuse over 4 hours Magnesium 2 gm, 50 mL, No Longer [place] Sulfate Route: IVPB, Active 2016 Medical Drug form: INJ, Center PRN, Dosing Weight 72.727, kg, PRN Abnormal Lab Result, Start date: 08/06/16 17:27:00 CDT, Duration: 30 day, Stop date: 09/05/16 17::00 CDT, FOR ICU USE ONLYNotes: WASTE: F/P - Sink; E - Municipal Trash Bin sodium phosphate 30 mmol, 10 mL, No Longer [place] + sodium Route: IVPB, Active 2016 Medical chloride 0.9% PRN, Dosing Center INJ 250 mL Weight 72.727, kg, PRN Abnormal Lab Result, Start date: 08/06/16 17:27:00 CDT, Duration: 30 day, Stop date: 09/05/16 17:26:00 CDT, FOR ICU USE ONLY Magnesium Oxide 800 mg, 2 tab, No Longer [place] Route: PO, Drug Active 2016 Medical form: TAB, PRN, Center Dosing Weight 72.727, kg, PRN Abnormal Lab Result, FOR ICU USE ONLY, Start date: 08/06/16 17:27:00 CDT, Duration: 30 day, Stop date: 09/05/16 17:26:00 CDTNotes: (Same as: Mag-Ox 400) Magnesium oxide [id number] elemental magnesium Dose=____mg magnesium oxide (___mg elemental magnesium) Calcium 1 gm, 10 mL, No Longer [place] Gluconate Route: IVPB, Active 2017 Medical PRN, Dosing Center Weight 72.727, kg, PRN Abnormal Lab Result, Start date: 08/06/16 17:27:00 CDT, Duration: 30 day, Stop date: 09/05/16 17:26:00 CDT, FOR ICU USE ONLYNotes: WASTE: F/P - Sink; E - Municipal Trash Bin LaMICtal XR 600 mg, 6 tab, Inactive [facility] Route: PO, Drug 2013 Medical form: ERTAB, Center Daily, Dosing Weight 72.727, kg, Start date: 04/17/13 9:00:00, Duration: 30 day, Stop date: 05/16/13 9:00:00Same as: LaMICtal XR Lorazepam 1 MG 1 mg=1 tab, PO, Active [facility] Oral Tablet BID, # 8 tab, 0 2013 Medical [Ativan] Refill(s) Center 24 HR 600 mg=6 tab, Active [facility] lamotrigine 100 PO, Daily, # 180 2013 Medical MG Extended tab, 11 Center Release Tablet Refill(s) sertraline 25 mg 25 mg=1 tab, PO, Active [facility] oral tablet Daily, # 30 tab, 2014 Medical 11 Refill(s) Center Ibuprofen 600 mg, 1 tab, Inactive [facility] Route: PO, Drug 2013 Medical form: TAB, ONCE, Center Dosing Weight 72.727, kg, Priority: NOW, Start date: 04/17/13 0:40:00, Stop date: 04/17/13 0:40:00(Same as: Motrin) "Do Not Crush" Take with food. Zofran 4 mg, 2 mL, No Longer [facility] Route: IV, Drug Active 2013 Medical form: INJ, Q8H, Center Dosing Weight 72.727, kg, PRN Nausea, Start date: 04/16/13 22:00:00, Duration: 30 day, Stop date: 05/16/13 21:59:00(Same as: Zofran) LaMICtal XR 600 mg, 6 tab, Inactive [facility] Route: PO, Drug 2013 Medical form: ERTAB, Center ONCE, Dosing Weight 72.727, kg, Priority: NOW, Start date: 04/16/13 21:59:00, Stop date: 04/16/13 21:59:00Same as: LaMICtal XR lacosamide 100 mg, 1 tab, No Longer [place] Route: PO, Drug Active 2013 Medical form: TAB, BID, Center Dosing Weight 72.727, kg, Start date: 04/16/13 19:30:00, Duration: 30 day, Stop date: 05/16/13 17:00:00Same as: Vimpat lacosamide 100 100 mg=1 tab, Active [place] MG Oral Tablet BID, 0 Refill(s) 2013 Medical [Vimpat] Center Tylenol 650 mg, 2 tab, No Longer [place] Route: PO, Drug Active 2013 Medical form: TAB, Q4H, Center Dosing Weight 72.727, kg, PRN Pain, Start date: 04/15/13 7:36:00, Duration: 30 day, Stop date: 05/15/13 7:35:00Do not exceed 4 gm/day. (Same as: Tylenol) Lamictal 200 mg, Route: No Longer [place] PO, Daily, Active 2013 Medical Dosing Weight Center 72.727, kg, Start date: 04/14/13 9:00:00, Duration: 30 day, Stop date: 05/13/13 9:00:00 multivitamin 1 tab, Route: No Longer [place] with minerals PO, Drug Form: Active 2013 Medical TAB, Dosing Center Weight 72.727, kg, Daily, Start date: 04/14/13 9:00:00, Duration: 30 day, Stop date: 05/13/13 9:00:00(Same as:Thera-M, Theragran-M) Give with food. Sertraline 25 mg, 1 tab, No Longer [place] Route: PO, Drug Active 2013 Medical form: TAB, Center Daily, Dosing Weight 72.727, kg, Start date: 04/14/13 9:00:00, Duration: 30 day, Stop date: 05/13/13 9:00:00(Same as: Zoloft) LaMICtal XR 100 mg, 1 tab, No Longer [place] Route: PO, Drug Active 2013 Medical form: ERTAB, Center Daily, Dosing Weight 72.727, kg, Start date: 04/14/13 9:00:00, Stop date: 05/13/13 9:00:00Same as: LaMICtal XR Ascorbic Acid / Daily, 0 Inactive [facility] Beta Carotene / Refill(s) 2013 Medical cuprous oxide / Center Lutein / sodium selenate / Vitamin E / Zinc Oxide Calcium, 2 tab, PO, BID, Inactive [facility] Magnesium and # 100 tab, 0 2013 Medical Phosphorus oral Refill(s) [place] tablet LaMICtal XR 600 mg, 6 tab, Inactive [facility] Route: PO, Drug 2013 Medical form: ERTAB, Center Daily, Dosing Weight 79.545, kg, Start date: 03/13/13 9:00:00, Duration: 30 day, Stop date: 04/11/13 9:00:00Same as: LaMICtal XR sertraline 25 mg, 1 tab, Inactive [facility] Route: PO, Drug 2013 Medical form: TAB, Center Daily, Dosing Weight 79.545, kg, Start date: 03/13/13 9:00:00, Duration: 30 day, Stop date: 04/11/13 9:00:00(Same as: Zoloft) cephalexin 500 500 mg=1 tab, Active [place] 03/13[facility] mg oral tablet PO, BID, # 14 2014 Medical tab, 0 Refill(s) Center lacosamide 100 100 mg=1 tab, Active [place] 03/13[facility] mg oral tablet PO, BID, # 60 2013 Medical tab, 2 Refill(s) Center Vimpat 100 mg, 1 tab, No Longer [facility] Route: PO, Drug Active 2013 Medical form: TAB, BID, Center Dosing Weight 79.545, kg, Start date: 03/12/13 17:00:00, Duration: 30 day, Stop date: 04/11/13 9:00:00Same as: Vimpat senna 8.6 mg 8.6 mg, 1 tab, No Longer [facility] oral tablet Route: PO, Drug Active 2013 Medical Form: TAB, Center Dosing Weight 79.545, kg, Bedtime, PRN Constipation, Start date: 03/12/13 13:24:00, Duration: 30 day, Stop date: 04/11/13 13:23:00(Same as: Senokot) docusate 50 mg, 5 mL, No Longer [facility] Route: PO, Drug Active 2013 Medical form: LIQ, BID, Center Dosing Weight 79.545, kg, PRN Constipation, Start date: 03/12/13 13:24:00, Duration: 30 day, Stop date: 04/11/13 13:23:00(Same as: Colace) Sodium Chloride 1,000 mL, Rate: No Longer [facility] 0.9% IV 1,000 mL 75 ml/hr, Infuse Active 2013 Medical over: 13.3 hr, Center Route: IV, Dosing Weight 79.545 kg, Total Volume: 1,000, Start date: 03/12/13 13:23:00, Duration: 30 day, Stop date: 04/11/13 13:22:00 ondansetron 4 mg, 2 mL, Inactive [facility] Route: IVP, Drug 2013 Medical form: INJ, ONCE, Center Dosing Weight 79.545, kg, PRN Nausea & Vomiting, Start date: 03/12/13 11:57:00(Same as: Zofran) flumazenil 0.2 mg, 2 mL, Inactive [facility] Route: IVP, Drug 2013 Medical form: INJ, PRN, Center Dosing Weight 79.545, kg, PRN Benzodiazepine Reversal, Initial dose, Start date: 03/12/13 11:57:00, Duration: 30 day, Stop date: 04/11/13 11:56:00(Same as: Romazicon) hydromorphone 0.5 mg, 0.25 mL, Inactive [facility] Route: IVP, Drug 2013 Medical form: INJ, Center Q5Min, Dosing Weight 79.545, kg, PRN Pain Score 7-10, Start date: 03/12/13 11:57:00, Duration: 4 doses or times, Stop date: 03/13/13 0:00:00(Same as: Dilaudid) naloxone 0.04 mg, 0.1 mL, Inactive [facility] Route: IVP, Drug 2013 Medical form: INJ, Center Q2MIN, Dosing Weight 79.545, kg, PRN Narcotic Reversal, Start date: 03/12/13 11:57:00, Duration: 8 doses or times, Stop date: 03/13/13 0:00:00(Same as: Narcan) labetalol 10 mg, 2 mL, Inactive [facility] Route: IVP, Drug 2013 Medical form: INJ, Center Q5Min, Dosing Weight 79.545, kg, PRN Elevated BP, Start date: 03/12/13 11:57:00, Duration: 5 doses or times, Stop date: 03/13/13 0:00:00 hydrALAZINE 10 mg, 0.5 mL, Inactive [facility] Route: IVP, Drug 2013 Medical form: INJ, Center Q20Min, Dosing Weight 79.545, kg, PRN Elevated BP, Start date: 03/12/13 11:57:00, Duration: 2 doses or times, Stop date: 03/13/13 0:00:00(Same as: Apresoline) Push over 5 minutes [place] 10/325 1 tab, Route: No Longer [place] [facility] oral tablet PO, Drug Form: Active 2013 Medical TAB, Dosing Center Weight 79.545, kg, Q4H, PRN Pain, Start date: 03/12/13 11:37:00, Duration: 30 day, Stop date: 04/11/13 11:36:00Do not exceed 4gm/day of acetaminophen. (Same as: [place] 325/10) Milk of Magnesia 30 mL, Route: No Longer [place] PO, Drug Form: Active 2013 Medical SUSP, Dosing Center Weight 79.545, kg, Q6H, PRN Constipation, Start date: 03/12/13 11:34:00, Duration: 30 day, Stop date: 04/11/13 11:33:00(Same as: Milk of Magnesia, MOM) cefepime 2 gm, Route: No Longer Cristian [facility] IVPB, Drug form: Active 2013 Medical INJ, ABXQ8H, Center Dosing Weight 79.545, kg, (CrCl >/=50 ml/min, OFFLINE EDITOR infection or neutropenic fever), Start date: 03/12/13 9:42:00, Duration: 30 day, Stop date: 04/11/13 1:42:00(Same as: Maxipime) vancomycin + 1.5 gm, Route: No Longer Cristian [place] Sodium Chloride IVPB, ABXQ8H, Active 2013 Medical 0.9% IV 250 mL Dosing Weight Center 79.545, kg, Start date: 03/12/13 9:31:00, Duration: 30 day, Stop date: 04/11/13 1:31:00(Same As: Vancocin) Vancomycin FOR IV SET ONLY hydrALAZINE 10 mg, 0.5 mL, Inactive [facility] Route: IVP, Drug 2013 Medical form: INJ, Center Q20Min, Dosing Weight 79.545, kg, PRN Elevated BP, Start date: 03/10/13 17:41:00, Duration: 2 doses or times, Stop date: 03/11/13 0:00:00(Same as: Apresoline) Push over 5 minutes naloxone 0.04 mg, 0.1 mL, Inactive [facility] 03/10[facility] Route: IVP, Drug 2013 Medical form: INJ, Center Q2MIN, Dosing Weight 79.545, kg, PRN Narcotic Reversal, Start date: 03/10/13 17:41:00, Duration: 8 doses or times, Stop date: 03/11/13 0:00:00Same as Narcan labetalol 10 mg, 2 mL, Inactive [facility] 03/10[facility] Route: IVP, Drug 2013 Medical form: INJ, Center Q5Min, Dosing Weight 79.545, kg, PRN Elevated BP, Start date: 03/10/13 17:41:00, Duration: 5 doses or times, Stop date: 03/11/13 0:00:00 dexamethasone 4 mg, 1 mL, Inactive [facility] 03/10[facility] Route: IVP, Drug 2013 Medical form: INJ, ONCE, Center Dosing Weight 79.545, kg, PRN Nausea & Vomiting, Start date: 03/10/13 17:41:00Concentr ation: 4mg/ml morphine Sulfate 2 mg, 1 mL, Inactive [facility] 03/10[facility] Route: IVP, Drug 2013 Medical form: INJ, Center Q5Min, Dosing Weight 79.545, kg, PRN Pain Score 4-6, Start date: 03/10/13 17:41:00, Duration: 5 doses or times, Stop date: 03/11/13 0:00:00(Same as:MORPhine Sulfate) hydromorphone 0.5 mg, 0.25 mL, Inactive [facility] 03/10[facility] Route: IVP, Drug 2013 Medical form: INJ, Center Q5Min, Dosing Weight 79.545, kg, PRN Pain Score 7-10, Start date: 03/10/13 17:41:00, Duration: 4 doses or times, Stop date: 03/11/13 0:00:00Same as: Dilaudid flumazenil 0.2 mg, 2 mL, Inactive [facility] 03/10[facility] Route: IVP, Drug 2013 Medical form: INJ, PRN, Center Dosing Weight 79.545, kg, PRN Benzodiazepine Reversal, Initial dose, Start date: 03/10/13 17:41:00, Duration: 1 day, Stop date: 03/11/13 17:40:00(Same as: Romazicon) diphenhydrAMINE 12.5 mg, 0.25 Inactive [facility] 03/10[facility] mL, Route: IVP2013 Medical Drug form: INJ, Center Q6H, Dosing Weight 79.545, kg, PRN Itching, Start date: 03/10/13 17:41:00, Duration: 1 day, Stop date: 03/11/13 12:00:00(Same as: Benadryl) ondansetron 4 mg, 2 mL, Inactive [facility] Route: IVP, Drug 2013 Medical form: INJ, ONCE, Center Dosing Weight 79.545, kg, PRN Nausea & Vomiting, Start date: 03/10/13 17:41:00(Same as: Zofran) promethazine 6.25 mg, 0.25 Inactive [facility] 03/10[facility] mL, Route: IVPB2013 Medical Drug form: INJ, Center ONCE, Dosing Weight 79.545, kg, PRN Nausea & Vomiting, Start date: 03/10/13 17:41:00Do not give IV push. (Same as: Phenergan) [place] 10/325 1 tab, PO, Q4H, Active [place] 03/10[facility] oral tablet for pain, # 60 2014 Medical tab, 0 Refill(s) [place] Colace 100 mg 100 mg=1 cap, Active [place] [facility] oral capsule PO, BID, 2014 Medical Constipation, # Center 28 cap, 0 Refill(s) Zofran 4 mg oral 4 mg=1 tab, PO, Active [place] [facility] tablet Q8H, as needed 2013 Medical for Center nausea/vomiting, # 42 tab, 0 Refill(s) vancomycin 1 gm, Route: Inactive [facility] 03/10[facility] IVPB, Drug form: 2013 Medical INJ, ONCE, Center Dosing Weight 79.545, kg, Start date: 03/10/13 15:44:00, Stop date: 03/10/13 15:44:00 ceFAZolin 2 gm, 50 mL, Inactive [facility] 03/10[facility] Route: IVPB, 2013 Medical Drug form: INJ, Center PRE OP, Start date: 03/10/13 3:00:00, Duration: 1 doses or times, Stop date: 03/11/13 0:00:00 NS + KCL 20mEq/L 1,000 mL, Rate: Inactive [facility] 1000ml (Premix) 70 ml/hr, Infuse [address] [place] [address] 1,000 mL over: 14.3 hr, [place] Route: IV, Dosing Weight 79.545 kg, Total Volume: 1,000, Start date: 03/10/13 2:32:00, Duration: 1 doses or times, Stop date: 03/10/13 16:49:00PREMIX IV - Do Not Alter sertraline 0 Refill(s) Active [facility] 2013 [facility] LaMICtal 0 Refill(s) Active [facility] 2013 [facility] Lyrica 0 Refill(s) Active [address] Allergies, Adverse Reactions, Alerts Substance Category Reaction Severity Reaction Status Date Comments Source type Reported Immunizations Immunization Date Given Site Status Last Updated Comments Source Results Order Name Results Value Reference Date Interpretation Comments Source Range TOXICOLOGY Phenytoin 2.20 ug/ml 1.00 - 08/26 [facility] Free 2.00 [facility] CHEM PANEL eGFR 118 08/26 Result Comment: The eGFR is calculated using the CKD-EPI formula. In most young, healthy individuals the eGFR will be >90 mL/ min/1.73m2. The eGFR declines with age. An eGFR of 60-89 may be normal in [facility] mL/min/1. some populations, particularly the elderly, for whom the CKD-EPI formula has not been extensively validated. Use of the eGFR is not recommended in the following populations: [address] Individuals with unstable creatinine concentrations, including patients and those with serious co-morbid conditions. Patients with extremes in muscle mass or diet. The data above are obtained from the National Kidney Disease Education Program (NKDEP) which additionally recommends that when the eGFR is used in patients with extremes of body mass index for purposes of drug dosing, the eGFR should be multiplied by the estimated BMI. CHEM PANEL Potassium Lvl 3.3 meq/L 3.5 - 5.1 08/[address] [place] [address] CHEM PANEL Chloride Lvl 108 meq/L 95 - 109 08/[address] CHEM PANEL Calcium Lvl 8.8 mg/dL 8.5 - 10.5 08/[address] CHEM PANEL CO2 19 meq/L 24 - 32 08/[address] CHEM PANEL Creatinine 0.88 mg/dL 0.50 - 08/26 [facility] Lvl 1.40 [facility] CHEM PANEL BUN 7 mg/dL 7 - 22 08/[address] CHEM PANEL Sodium Lvl 140 meq/L 135 - 145 08/[address] CHEM PANEL Glucose Lvl 74 mg/dL 70 - 99 08/[address] CHEM PANEL AGAP 16.3 meq/L 10.0 - 08/26 [facility] 20.0 [facility] CHEM PANEL Magnesium Lvl 2.0 mg/dL 1.8 - 2.4 08/[address] CHEM PANEL Phosphorus 2.6 mg/dL 2.5 - 4.5 08/[address] HEMATOLOGY MPV 7.8 fL 7.4 - 10.4 08/[address] HEMATOLOGY MCH 31.2 pg 27.0 - 08/26 31.0 [facility] HEMATOLOGY MCHC 33.7 g/dL 32.0 - 08/26 36.0 [facility] HEMATOLOGY RDW 13.5 % 11.5 - 07 14.5 [facility] HEMATOLOGY Platelet 322 K/CMM 133 - 450 08/26 [facility] HEMATOLOGY Hct 40.5 % 42.0 - 08/26 54.0 [facility] HEMATOLOGY WBC 10.9 K/CMM 3.7 - 10.4 07 [facility] HEMATOLOGY RBC 4.37 M/CMM 4.70 - 08/26 6.10 [facility] HEMATOLOGY Hgb 13.6 g/dL 14.0 - 08/26 18.0 [facility] HEMATOLOGY MCV 92.7 fL 80.0 - 08/26 94.0 [facility] HEMATOLOGY Basophils # 0.1 K/CMM 0.0 - 0.2 08/26 [facility] HEMATOLOGY Eosinophils # 0.3 K/CMM 0.0 - 0.5 08/26 [facility] HEMATOLOGY Lymphocytes # 2.9 K/CMM 1.0 - 5.5 08/26 [facility] HEMATOLOGY Monocytes # 1.3 K/CMM 0.0 - 0.8 08/26 [facility] HEMATOLOGY Monocytes 11.6 % 2.0 - 12.0 08/[address] [place] [address] HEMATOLOGY Segs-Bands # 6.4 K/CMM 1.5 - 8.1 08/26 [facility] HEMATOLOGY Segs 58.3 % 45.0 - 08/26 75.0 [facility] HEMATOLOGY Lymphocytes 26.2 % 20.0 - 07 [place] 40.0 [facility] HEMATOLOGY Basophils 0.7 % 0.0 - 1.0 08/26 [facility] HEMATOLOGY Eosinophils 3.2 % 0.0 - 4.0 08/[address] PARATHYROID Ca Norm WB 1.12 1.05 - 08/26 [facility] PROFILE mMol/L 1.25 [facility] PARATHYROID Ca Ion WB 1.13 1.05 - 08/26 [facility] PROFILE mMol/L 1.25 [facility] CHEM PANEL Phosphorus 2.9 mg/dL 2.5 - 4.5 08/[address] CHEM PANEL Magnesium Lvl 1.9 mg/dL 1.8 - 2.4 08/[address] ELECTROLYTE AGAP 12.6 meq/L 10.0 - 07 [facility] S 20.0 [facility] ELECTROLYTE BUN 6 mg/dL 7 - 22 08/[address] ELECTROLYTE Glucose Lvl 82 mg/dL 70 - 99 08/[address] ELECTROLYTE Creatinine 0.97 mg/dL 0.50 - 08/25 [facility] Lvl 1.40 [facility] ELECTROLYTE Sodium Lvl 140 meq/L 135 - 145 08/[address] ELECTROLYTE CO2 24 meq/L 24 - 32 08/[address] ELECTROLYTE Potassium Lvl 3.6 meq/L 3.5 - 5.1 08/[address] ELECTROLYTE Chloride Lvl 107 meq/L 95 - 109 08/[address] ELECTROLYTE Calcium Lvl 8.9 mg/dL 8.5 - 10.5 08/[address] ELECTROLYTE eGFR 106 08/25 Result Comment: The eGFR is calculated using the CKD-EPI formula. In most young, healthy individuals the eGFR will be > 90 mL/min/1.73m2. The eGFR declines with age. An eGFR of 60-89 may be normal in [facility] mL/min/1.7 some populations, particularly the elderly, for whom the CKD-EPI formula has not been extensively validated. Use of the eGFR is not recommended in the following populations: [address] Individuals with unstable creatinine concentrations, including patients and those with serious co-morbid conditions. Patients with extremes in muscle mass or diet. The data above are obtained from the National Kidney Disease Education Program (NKDEP) which additionally recommends that when the eGFR is used in patients with extremes of body mass index for purposes of drug dosing, the eGFR should be multiplied by the estimated BMI. HEMATOLOGY Basophils # 0.1 K/CMM 0.0 - 0.2 08/[address] HEMATOLOGY Eosinophils # 0.2 K/CMM 0.0 - 0.5 08/[address] HEMATOLOGY Lymphocytes 21.9 % 20.0 - 07 [place] 40.0 [facility] HEMATOLOGY Segs 65.2 % 45.0 - 07 [place] 75.0 [facility] HEMATOLOGY Eosinophils 1.7 % 0.0 - 4.0 08/25 [facility] HEMATOLOGY Monocytes 10.3 % 2.0 - 12.0 08/[address] [place] [address] HEMATOLOGY Basophils 0.9 % 0.0 - 1.0 08/25 [facility] HEMATOLOGY Segs-Bands # 8.5 K/CMM 1.5 - 8.1 08/25 [facility] HEMATOLOGY Monocytes # 1.3 K/CMM 0.0 - 0.8 08/25 [facility] HEMATOLOGY Lymphocytes # 2.8 K/CMM 1.0 - 5.5 08/[address] [place] [address] HEMATOLOGY MPV 7.5 fL 7.4 - 10.4 08/[address] [place] [address] HEMATOLOGY Platelet 298 K/CMM 133 - 450 08/25 [facility] HEMATOLOGY RDW 13.6 % 11.5 - 07 14.5 [facility] HEMATOLOGY MCV 91.7 fL 80.0 - 08/25 [facility] 94.0 [facility] HEMATOLOGY Hct 38.2 % 42.0 - 08/25 54.0 [facility] HEMATOLOGY MCH 31.3 pg 27.0 - 08/25 31.0 [facility] HEMATOLOGY MCHC 34.1 g/dL 32.0 - 08/25 [place] 36.0 [facility] HEMATOLOGY Hgb 13.0 g/dL 14.0 - 08/25 [place] 18.0 [facility] HEMATOLOGY RBC 4.16 M/CMM 4.70 - 08/25 [place] 6.10 [facility] HEMATOLOGY WBC 13.0 K/CMM 3.7 - 10.4 08/25 [facility] PARATHYROID Ca Ion WB 1.10 1.05 - 08/25 [facility] PROFILE mMol/L 1. [facility] PARATHYROID Ca Norm WB 1.07 1.05 - 08/25 [facility] PROFILE mMol/L . [facility] TOXICOLOGY Phenytoin 2.35 ug/ml 1.00 - 08/25 [facility] [place] Free 2.00 /2017 [facility] TOXICOLOGY Phenytoin 24.7 ug/ml 10.0 - 08/25 [facility] Total 20. [facility] Chest 1view Chest 1view EXAM: XR CHEST 1 VIEW 08/25 - [facility] DX DX - [facility] DATE: 08/25/2016 3:00 AM CDT Read by: Mekhi Almanzar MD Dictated Date/time: 08/25/16 13:23 Electronically Signed by: Mekhi Almanzar 08/25/16 13:25 FINAL REPORT INDICATION: Intubated - Intubated COMPARISON: 08/24/2016 TECHNIQUE: AP chest IMPRESSION: Removal of the endotracheal and NG tubes. Vagal nerve neurostimulator again seen. Low lung volumes with scattered subsegmental atelectasis. Left retrocardiac opacity may represent singly or any combination of layering left pleural effusion, subsegmental atelectasis and/or pneumonia. No pneumothorax. Stable cardiomediastinal silhouette. CHEM PANEL eGFR 95 08/24 Result Comment: The eGFR is calculated using the CKD-EPI formula. In most young, healthy individuals the eGFR will be >90 mL/ min/1.73m2. The eGFR declines with age. An eGFR of 60-89 may be normal in [facility] mL/min/1. some populations, particularly the elderly, for whom the CKD-EPI formula has not been extensively validated. Use of the eGFR is not recommended in the following populations: [address] Individuals with unstable creatinine concentrations, including patients and those with serious co-morbid conditions. Patients with extremes in muscle mass or diet. The data above are obtained from the National Kidney Disease Education Program (NKDEP) which additionally recommends that when the eGFR is used in patients with extremes of body mass index for purposes of drug dosing, the eGFR should be multiplied by the estimated BMI. CHEM PANEL Chloride Lvl 108 meq/L 95 - 109 08/24 [facility] CHEM PANEL CO2 23 meq/L 24 - 32 08/24 [facility] CHEM PANEL Calcium Lvl 8.7 mg/dL 8.5 - 10.5 08/24 [facility] CHEM PANEL AGAP 13.6 meq/L 10.0 - 08/24 [facility] 20. [facility] CHEM PANEL BUN 8 mg/dL 7 - 22 08/24 [facility] CHEM PANEL Glucose Lvl 94 mg/dL 70 - 99 08/24 [facility] CHEM PANEL Potassium Lvl 3.6 meq/L 3.5 - 5.1 08/24 [facility]2016 [facility] CHEM PANEL Sodium Lvl 141 meq/L 135 - 145 08/24 [facility]2016 [facility] CHEM PANEL Creatinine 1.07 mg/dL 0.50 - 08/24 [facility] TOXICOLOGY Phenytoin 2.26 ug/ml 1.00 - 08/24 [facility] Free 2.00 [facility] CHEM PANEL Lactic Acid 1.0 mMol/L 0.5 - 2.2 08/24 [facility] URINE AND UA pH 6.5 5.0 - 8.0 08/24 [facility] URINE AND UA Spec Grav 1.014 <=1.030 08/24 [facility] [address] [place] [address] URINE AND UA Ketones Negative Negative 08/24 [facility] mg/dL mg/dL [facility] URINE AND UA Protein 30 mg/dL Negative 08/24 [facility] mg/dL [facility] URINE AND UA Turbidity Marked Clear 08/24 [facility] Medical *ABN* [place] (08/24/16 9:19 AM) URINE AND UA Color Yellow Yellow 08/24 [facility] Medical *NA* [place] (08/24/16 9:19 AM) URINE AND UA Amorph Many /HPF None Seen 08/24 [facility] [place] /HPF /2016 [facility] URINE AND UA Leuk Est Negative Negative 08/24 [facility] (08/24/16 9:19 AM) [place] URINE AND UA RBC 10 /HPF 0 - 2 08/24 [facility] URINE AND UA <=1.0 0.1 - 1.0 08/24 [facility] Urobilinogen mg/dL [facility] URINE AND UA Glucose Negative Negative 08/24 [facility] mg/dL mg/dL [facility] URINE AND UA Nitrite Negative Negative 08/24 [facility] (08/24/16 9:19 AM) [place] URINE AND UA Bili Negative Negative 08/24 [facility] Medical *NA* [place] (08/24/16 9:19 AM) URINE AND UA Blood Moderate Negative 08/24 [facility] Medical *ABN* Center (08/24/16 9:19 AM) URINE AND UA Sq Epi None Seen 08/24 [facility] BACTERIAL - MRSA by PCR Negative 08/24 [facility] (08/24/16 4:39 AM) [place] CHEM PANEL Bili Total 0.5 mg/dL 0.2 - 1.3 08/24 [facility] CHEM PANEL ALT 29 unit/L 0 - 65 08/24 [facility] CHEM PANEL Globulin 3.6 g/dL 2.7 - 4.2 08/24 [facility] CHEM PANEL A/G Ratio 1.0 0.7 - 1.6 08/24 2016 [facility] CHEM PANEL Alk Phos 96 unit/L 39 - 136 08/24 [facility] CHEM PANEL AST 23 unit/L 0 - 37 08/24 2016 [facility] CHEM PANEL Albumin Lvl 3.7 g/dL 3.5 - 5.0 08/24 [facility] CHEM PANEL Total Protein 7.3 g/dL 6.4 - 8.4 08/24 [facility] CHEM PANEL B/C Ratio See Note 4 08/24 [facility] Comment: B/C [facility] (08/24/16 4:38 AM) Ratio can't Center be calculated due to Creat level < 0.15 CHEM PANEL Phosphorus 3.9 mg/dL 2.5 - 4.5 08/24 2016 [facility] CHEM PANEL Magnesium Lvl 2.3 mg/dL 1.8 - 2.4 08/24 [facility] HEMATOLOGY MPV 7.4 fL 7.4 - 10.4 08/24 [facility] HEMATOLOGY Platelet 351 K/CMM 133 - 450 08/24 2016 [facility] HEMATOLOGY RDW 13.2 % 11.5 - 08/24 [facility] 14.5 [facility] HEMATOLOGY RBC 4.65 M/CMM 4.70 - 08/24 [place] 6.10 [facility] HEMATOLOGY WBC 19.6 K/CMM 3.7 - 10.4 08/24 [facility] HEMATOLOGY Hct 43.0 % 42.0 - 08/24 [place] 54.0 [facility] HEMATOLOGY Hgb 14.1 g/dL 14.0 - 08/24 18.0 [facility] HEMATOLOGY MCV 92.5 fL 80.0 - 08/24 94.0 [facility] HEMATOLOGY MCHC 32.8 g/dL 32.0 - 08/24 36.0 [facility] HEMATOLOGY MCH 30.3 pg 27.0 - 08/24 31.0 [facility] HEMATOLOGY Eosinophils # 0.1 K/CMM 0.0 - 0.5 07/ [facility] HEMATOLOGY Basophils # 0.1 K/CMM 0.0 - 0.2 07 [facility] HEMATOLOGY Segs-Bands # 14.9 K/CMM 1.5 - 8.1 08/[address] [place] [address] HEMATOLOGY Monocytes # 2.0 K/CMM 0.0 - 0.8 08/[address] HEMATOLOGY Lymphocytes # 2.6 K/CMM 1.0 - 5.5 08/[address] HEMATOLOGY Lymphocytes 13.0 % 20.0 - 08/24 [facility] 40.0 [facility] HEMATOLOGY Segs 76.0 % 45.0 - 08/24 [facility] 75.0 [facility] HEMATOLOGY Monocytes 10.2 % 2.0 - 12.0 08/24 [facility] HEMATOLOGY Basophils 0.4 % 0.0 - 1.0 08/24 [facility] HEMATOLOGY Eosinophils 0.4 % 0.0 - 4.0 08/24 [facility] PARATHYROID Ca Ion WB 0.95 1.05 - 08/24 [facility] PROFILE mMol/L . [facility] PARATHYROID Ca Norm WB 0.97 1. - 08/24 [facility] PROFILE mMol/L . [facility] TOXICOLOGY Lamotrigine 8.2 ug/ml 2.0 - 20.0 08/24 Result Comment: Detection Limit=1.0 [facility] Performed At: [facility] [id number] [place] Tio Mckeon MD Ph:[phone] TOXICOLOGY Zonisamide 45.3 ug/ml 10.0 - 08/24 Result Comment: Detection Limit=1.0 [facility] .0 /2016 Performed At: [facility] [address] [place], [place] [id number] Center Tio Mckeon MD Ph:[phone] DRUG SCREEN U Amph Scr Negative Negative 08/24 Medical *NA* Center (08/24/16 1:06 AM) DRUG SCREEN U Cocaine Scr Negative Negative 08/24 Medical *NA* Center (08/24/16 1:06 AM) DRUG SCREEN U Cannab Scr Negative Negative 08/24 Medical *NA* Center (08/24/16 1:06 AM) DRUG SCREEN U Opiate Scr Negative Negative 08/24 Medical *NA* Center (08/24/16 1:06 AM) DRUG SCREEN U Phencyc Scr Negative Negative 08/24 Medical *NA* Center (08/24/16 1:06 AM) DRUG SCREEN U Methadone Negative Negative 08/24 [facility] Medical *NA* Center (08/24/16 1:06 AM) DRUG SCREEN U Helen Scr Negative Negative 08/24 Medical *NA* Center (08/24/16 1:06 AM) DRUG SCREEN U Benzodia Positive Negative 08/24 [facility] Medical *ABN* Center (08/24/16 1:06 AM) DRUG SCREEN U Propoxyph Negative Negative 08/24 [facility] Medical *NA* Center (08/24/16 1:06 AM) DRUG SCREEN UDS Note See Note 08/24 [facility] (08/24/16 1:06 AM) Center URINE AND UA WBC 1 /HPF 0 - 5 08/24 [facility] URINE AND UA Mucus Few /LPF None Seen 08/24 [facility] STOOL /LPF /2016 [facility] URINE AND UA Sq Epi None Seen 08/24 [facility] URINE AND UA <=1.0 0.1 - 1.0 08/24 [facility] Urobilinogen mg/dL /2016 [facility] URINE AND UA Color Light Yellow Yellow 08/24 [facility] Medical *NA* Center (08/24/16 1:06 AM) URINE AND UA Turbidity Clear Clear 08/24 [facility] Medical (08/24/16 1:06 AM) Center URINE AND UA Glucose Negative Negative 08/24 [facility] STOOL mg/dL mg/dL /2016 [facility] URINE AND UA Ketones Negative Negative 08/24 [facility] STOOL mg/dL mg/dL [facility] URINE AND UA Protein 30 mg/dL Negative 08/24 [facility] STOOL mg/dL [facility] URINE AND UA Spec Grav 1.006 <=1.030 08/24 [facility] URINE AND UA pH 7.5 5.0 - 8.0 08/24 [facility] URINE AND UA Bili Negative Negative 08/24 [facility] Medical *NA* [place] (08/24/16 1:06 AM) URINE AND UA Blood Negative Negative 08/24 [facility] (08/24/16 1:06 AM) [place] URINE AND UA Nitrite Negative Negative 08/24 [facility] (08/24/16 1:06 AM) [place] URINE AND UA Leuk Est Negative Negative 08/24 [facility] (08/24/16 1:06 AM) [place] URINE AND UA pH 7.0 5.0 - 8.0 08/24 [facility] URINE AND UA Protein 30 mg/dL Negative 08/24 [facility] mg/dL [facility] URINE AND UA Glucose Negative Negative 08/24 [facility] (08/24/16 1:06 AM) [place] URINE AND UA Ketones Negative Negative 08/24 [facility] Medical *NA* [place] (08/24/16 1:06 AM) URINE AND UA Bili Negative Negative 08/24 [facility] Medical *NA* [place] (08/24/16 1:06 AM) URINE AND UA Nitrite Negative Negative 08/24 [facility] (08/24/16 1:06 AM) [place] URINE AND UA Leuk Est Negative Negative 08/24 [facility] (08/24/16 1:06 AM) Center URINE AND UA Sq Epi None Seen Few 08/24 [facility] (08/24/16 1:06 AM) [place] URINE AND UA WBC None Seen None Seen 08/24 [facility] (08/24/16 1:06 AM) [place] URINE AND UA RBC None Seen 0 - 2 08/24 [facility] (08/24/16 1:06 AM) [place] URINE [place] UA Color Yellow Yellow 08/24 [facility] *NA* [place] (08/24/16 1:06 AM) URINE AND UA Turbidity Clear Clear 08/24 [facility]2016 [facility] (08/24/16 1:06 AM) [place] URINE AND UA Spec Grav 1.010 <=1.030 08/[address] URINE AND UA 0.2 EU/dL 0.1 - 1.0 08/24 [facility] Urobilinogen /2016 [facility] URINE AND UA Hyal Cast 0-2 0 - 2 08/24 [facility]2016 [facility] (08/24/16 1:06 AM) [place] URINE AND UA Blood Trace Negative 08/24 [facility] *ABN* [place] (08/24/16 1:06 AM) TOXICOLOGY Phenytoin null 10.0 - 08/24 [facility] Total 20.0 [facility] TOXICOLOGY Carbamaz Lvl null 4.0 - 12.0 08/[address] TOXICOLOGY Valproic Acid null 50 - 100 08/24 [facility] [place] [address] Chest 1view Chest 1view EXAM: XR CHEST 1 VIEW 08/24 - [facility] DX DX /2016 - [facility] DATE: 08/24/2016 at 0143 hours Read by: Opal Loco MD Dictated Date/time: 08/24/16 01:52 Electronically Signed by: Opal Loco MD 08/24/16 01:58 FINAL REPORT INDICATION: Line placement COMPARISON: 09/02/2016 at 2203 hours TECHNIQUE: AP chest FINDINGS: Lines and tubes: Endotracheal tube is stable in position. Gastric drainage tube has been placed with port and tip projecting at proximal stomach. A left chest pulse generator is unchanged in position. A thin caliber lead ascends along the left base of the neck. Please correlate for the presence of a vagal stimulator. Lungs and pleura: Scattered bibasilar opacities are present most consistent with subsegmental atelectasis. Heart and mediastinum: The heart size is at upper limits of normal for technique. The mediastinal contours are stable. Bones: No acute bony abnormality is identified. IMPRESSION: 1. Interval placement of gastric drainage tube with port and tip projecting at proximal stomach. 2. Left chest pulse generator in place with a single lead ascending along the left base of the neck however the distal portion is not included in the [id number]. This is likely a vagal stimulator. 3. Bibasilar subsegmental atelectasis. 4. Heart is at upper limits of normal in size. Brain wo Brain wo 08/23 [facility] contrast CT contrast CT /2016 - Medical This report was dictated by a Jig Worker/Fellow. I have personally reviewed the images as Center well as the Resident's interpretation and agree with the findings. EXAM: CT head without contrast Read by: Andrew Skaggs MD Resident: Andrew Skaggs MD Dictated Date/time: 08/23/16 22:50 Electronically Signed by: Primitivo Mccormack MD 08/23/16 23:01 FINAL REPORT DATE: 08/23/2016 INDICATION: Status epilepticus. FINDINGS: Noncontrast CT images of the head are performed without comparison. There is no edema, hemorrhage, or other acute finding. There is an old right sided craniotomy with underlying changes of temporal lobectomy and hippocampal resection. A chronic craniotomy is present on the left side is well without any underlying brain abnormality. The sinuses and skull base are clear. IMPRESSION: No acute abnormality. Chronic appearing postoperative changes. Resident preliminary: 1. Status post left temporoparietal craniotomy with resection of the right anterior temporal all and hippocampus. 2. No acute intracranial abnormality. [place] SECTION: Neuro Chest 1view Chest 1view EXAM: XR CHEST 1 VIEW 08/23 [facility] DX DX /2016 - Medical This report was dictated by a Jig Worker/Fellow. I have personally reviewed the images as Center well as the Resident's interpretation and agree with the findings. DATE: 08/23/2016 9:58 PM CDT Read by: Andrew Skaggs MD Resident: Andrew Skaggs MD Dictated Date/time: 08/23/16 22:11 Electronically Signed by: Jj Sprague MD 08/23/16 22:35 FINAL REPORT INDICATION: - intubated COMPARISON: None. TECHNIQUE: AP chest FINDINGS: Lines, tubes and hardware: Left chest pulse generator with no beads attached. Endotracheal tube tip terminates 4 cm superior to mark. Lungs and pleura: No pulmonary or pleural based abnormality is identified. Pulmonary vascularity is normal. Heart and mediastinum: The heart size is normal for technique. The mediastinal contours are normal. Bones: No acute bony abnormality is identified. IMPRESSION: 1. Endotracheal tube tip terminates 4 cm superior to mark. 2. No acute cardiopulmonary abnormality. [place] SECTION: ER ELECTROLYTE Potassium Lvl 3.3 meq/L 3.5 - 5.1 08/08 [facility] S [facility] HEMATOLOGY Segs 60.9 % 45.0 - 08/08 75.0 [facility] HEMATOLOGY Basophils 0.9 % 0.0 - 1.0 08/08 [facility] HEMATOLOGY Eosinophils 2.9 % 0.0 - 4.0 08/08 [facility] HEMATOLOGY Lymphocytes 24.4 % 20.0 - 08/08 [place] 40.0 [facility] HEMATOLOGY Monocytes 10.9 % 2.0 - 12.0 08/[address] HEMATOLOGY Basophils # 0.1 K/CMM 0.0 - 0.2 08/08 [facility] HEMATOLOGY Eosinophils # 0.4 K/CMM 0.0 - 0.5 08/[address] HEMATOLOGY Lymphocytes # 3.3 K/CMM 1.0 - 5.5 08/08 [facility] HEMATOLOGY Monocytes # 1.5 K/CMM 0.0 - 0.8 08/[address] HEMATOLOGY Segs-Bands # 8.2 K/CMM 1.5 - 8.1 08/08 [facility] HEMATOLOGY Platelet 259 K/CMM 133 - 450 08/[address] HEMATOLOGY MPV 8.2 fL 7.4 - 10.4 08/08 [facility] HEMATOLOGY Hct 41.1 % 42.0 - 08/08 [place] 54.0 [facility] HEMATOLOGY MCHC 32.5 g/dL 32.0 - 08/08 [place] 36.0 [facility] HEMATOLOGY Hgb 13.3 g/dL 14.0 - 08/08 18.0 [facility] HEMATOLOGY RDW 13.7 % 11.5 - 08/08 14.5 [facility] HEMATOLOGY MCH 30.0 pg 27.0 - 08/08 [place] 31.0 [facility] HEMATOLOGY MCV 92.3 fL 80.0 - 08/08 [place] 94.0 [facility] HEMATOLOGY WBC 13.5 K/CMM 3.7 - 10.4 08/08 [facility] HEMATOLOGY RBC 4.45 M/CMM 4.70 - 08/08 [facility] 6.10 [facility] TOXICOLOGY Phenytoin 10.7 ug/ml 10.0 - 08/07 [facility] Total 20. [facility] TOXICOLOGY Phenytoin 0.87 ug/ml 1.00 - 08/07 [facility] Free 2. [facility] BACTERIAL - MRSA by PCR Negative 08/07 [facility] (08/07/16 1:10 PM) [place] CHEM PANEL eGFR 131 08/07 Result Comment: The eGFR is calculated using the CKD-EPI formula. In most young, healthy individuals the eGFR will be >90 mL/ min/1.73m2. The eGFR declines with age. An eGFR of 60-89 may be normal in [facility] mL/min/1. some populations, particularly the elderly, for whom the CKD-EPI formula has not been extensively validated. Use of the eGFR is not recommended in the following populations: [address] Individuals with unstable creatinine concentrations, including patients and those with serious co-morbid conditions. Patients with extremes in muscle mass or diet. The data above are obtained from the National Kidney Disease Education Program (NKDEP) which additionally recommends that when the eGFR is used in patients with extremes of body mass index for purposes of drug dosing, the eGFR should be multiplied by the estimated BMI. CHEM PANEL Calcium Lvl 7.9 mg/dL 8.5 - 10.5 08/07 [facility] CHEM PANEL Potassium Lvl 3.1 meq/L 3.5 - 5.1 08/07 [facility] CHEM PANEL AGAP 14.1 meq/L 10.0 - 08/07 [facility] . [facility] CHEM PANEL CO2 20 meq/L 24 - 32 08/07 [facility] CHEM PANEL Chloride Lvl 110 meq/L 95 - 109 08/07 [facility]2016 [facility] CHEM PANEL Creatinine 0.68 mg/dL 0.50 - 08/07 [facility] Lvl 1.40 [facility] CHEM PANEL Sodium Lvl 141 meq/L 135 - 145 08/07 [facility]2016 [facility] CHEM PANEL Glucose Lvl 70 mg/dL 70 - 99 08/07 [facility] CHEM PANEL BUN 4 mg/dL 7 - 08/07 [facility] CHEM PANEL Magnesium Lvl 2.0 mg/dL 1.8 - 2.4 08/07 [facility] CHEM PANEL Phosphorus 2.5 mg/dL 2.5 - 4.5 08/07 [facility] PARATHYROID Ca Ion WB 1.09 1.05 - 08/07 [facility] PROFILE mMol/L 1. [facility] PARATHYROID Ca Norm WB 1.06 1.05 - 08/07 [facility] PROFILE mMol/L 1. [facility] DRUG SCREEN UDS Note See Note 08/07 [facility] (08/07/16 2:45 AM) Center DRUG SCREEN U Phencyc Scr Negative Negative 08/07 [facility] *NA* [place] (08/07/16 2:45 AM) DRUG SCREEN U Opiate Scr Negative Negative 08/07 [facility] *NA* [place] (08/07/16 2:45 AM) DRUG SCREEN U Amph Scr Negative Negative 08/07 [facility] *NA* [place] (08/07/16 2:45 AM) DRUG SCREEN U Helen Scr Negative Negative 08/07 [facility] *NA* [place] (08/07/16 2:45 AM) DRUG SCREEN U Benzodia Positive Negative 08/07 [facility] *ABN* Center (08/07/16 2:45 AM) DRUG SCREEN U [facility]ab [facility] [place] (08/07/16 2:45 AM) DRUG SCREEN U Cocaine Scr Negative Negative 08/07 [facility] *NA* [place] (08/07/16 2:45 AM) URINE AND UA <=1.0 0.1 - 1.0 08/07 [facility] Urobilinogen mg/dL /2016 [facility] URINE AND UA Blood Negative Negative 08/07 [facility] (08/07/16 2:45 AM) [place] URINE AND UA Ketones 80 mg/dL Negative 08/07 [facility] mg/dL [facility] URINE AND UA Bili Negative Negative 08/07 [facility] [place] (08/07/16 2:45 AM) URINE AND UA WBC 1 /HPF 0 - 5 08/07 [facility] URINE AND UA Nitrite Negative Negative 08/07 [facility] (08/07/16 2:45 AM) [place] URINE AND UA Leuk Est Negative Negative 08/07 [facility] (08/07/16 2:45 AM) [place] URINE AND UA Sq Epi None Seen 08/07 [facility] URINE AND UA Mucus Few /LPF None Seen 08/07 [facility] /LPF /2016 [facility] URINE AND UA Turbidity Clear Clear 08/07 [facility] (08/07/16 2:45 AM) [place] URINE AND UA Color Yellow Yellow 08/07 [facility] *NA* [place] (08/07/16 2:45 AM) URINE AND UA Spec Grav 1.009 <=1.030 08/07 [facility] URINE AND UA Protein Negative Negative 08/07 [facility] mg/dL mg/dL [facility] URINE AND UA pH 6.5 5.0 - 8.0 08/07 [facility] URINE AND UA Glucose Negative Negative 08/07 [facility] mg/dL mg/dL [facility] CHEM PANEL Phosphorus 2.4 mg/dL 2.5 - 4.5 08/07 [facility] CHEM PANEL BUN 7 mg/dL 7 - 22 08/07 [facility] CHEM PANEL Glucose Lvl 53 mg/dL 70 - 99 08/07 [facility]2016 [facility] CHEM PANEL Sodium Lvl 142 meq/L 135 - 145 08/[address] CHEM PANEL Creatinine 0.89 mg/dL 0.50 - 08/07 [facility] Lvl 1.40 [facility] CHEM PANEL Potassium Lvl 3.0 meq/L 3.5 - 5.1 08/07 Result Comment: [facility] Result(s) called to Agustin Iqbal at 08/07/2016 04:51 byJw. Read back OK. CHEM PANEL Chloride Lvl 111 meq/L 95 - 109 08/07 [facility] CHEM PANEL eGFR 117 08/07 Result Comment: The eGFR is calculated using the CKD-EPI formula. In most young, healthy individuals the eGFR will be >90 mL/ min/1.73m2. The eGFR declines with age. An eGFR of 60-89 may be normal in [facility] mL/min/1.7 some populations, particularly the elderly, for whom the CKD-EPI formula has not been extensively validated. Use of the eGFR is not recommended in the following populations: [address] Individuals with unstable creatinine concentrations, including patients and those with serious co-morbid conditions. Patients with extremes in muscle mass or diet. The data above are obtained from the National Kidney Disease Education Program (NKDEP) which additionally recommends that when the eGFR is used in patients with extremes of body mass index for purposes of drug dosing, the eGFR should be multiplied by the estimated BMI. CHEM PANEL CO2 17 meq/L 24 - 32 08/07 [facility] CHEM PANEL Calcium Lvl 8.4 mg/dL 8.5 - 10.5 08/07 2016 [facility] CHEM PANEL AGAP 17.0 meq/L 10.0 - 08/07 20.0 [facility] CHEM PANEL Magnesium Lvl 2.3 mg/dL 1.8 - 2.4 08/[address] [place] [address] HEMATOLOGY MCHC 33.8 g/dL 32.0 - 08/07 [place] 36.0 [facility] HEMATOLOGY RDW 13.5 % 11.5 - 08/07 14.5 [facility] HEMATOLOGY MCH 31.4 pg 27.0 - 08/07 [facility] 31.0 [facility] HEMATOLOGY Platelet 242 K/CMM 133 - 450 08/07 [facility] HEMATOLOGY MPV 8.0 fL 7.4 - 10.4 08/[address] [place] [address] HEMATOLOGY Hct 39.1 % 42.0 - 08/07 [place] 54.0 [facility] HEMATOLOGY Hgb 13.2 g/dL 14.0 - 08/07 18.0 [facility] HEMATOLOGY MCV 93.1 fL 80.0 - 08/07 [place] 94.0 [facility] HEMATOLOGY RBC 4.20 M/CMM 4.70 - 08/07 [place] 6.10 [facility] HEMATOLOGY WBC 23.1 K/CMM 3.7 - 10.4 08/07 [facility]2016 [facility] HEMATOLOGY Eosinophils # 0.1 K/CMM 0.0 - 0.5 08/07 [facility] HEMATOLOGY Segs-Bands # 18.3 K/CMM 1.5 - 8.1 08/[address] [place] [address] HEMATOLOGY Lymphocytes # 2.6 K/CMM 1.0 - 5.5 08/07 [facility] HEMATOLOGY Monocytes # 2.1 K/CMM 0.0 - 0.8 08/07 2016 [facility] HEMATOLOGY Segs 79.1 % 45.0 - 08/07 [facility] 75.0 [facility] HEMATOLOGY Lymphocytes 11.2 % 20.0 - 08/07 [facility] 40.0 [facility] HEMATOLOGY Eosinophils 0.4 % 0.0 - 4.0 08/07 [facility] HEMATOLOGY Monocytes 9.1 % 2.0 - 12.0 08/07 [facility] HEMATOLOGY Basophils 0.2 % 0.0 - 1.0 08/07 [facility] PARATHYROID Ca Ion WB 1.07 1.05 - 08/07 [facility] PROFILE mMol/L 1. [facility] PARATHYROID Ca Norm WB 1.00 1. - 08/07 [facility] PROFILE mMol/L 1. [facility] CHEM PANEL Phosphorus 2.4 mg/dL 2.5 - 4.5 08/[address] CHEM PANEL Magnesium Lvl 1.9 mg/dL 1.8 - 2.4 08/[address] [place] [address] ELECTROLYTE AGAP 14.8 meq/L 10.0 - 08/06 [facility] S 20.0 [facility] ELECTROLYTE eGFR 95 08/06 Result Comment: The eGFR is calculated using the CKD-EPI formula. In most young, healthy individuals the eGFR will be >90 mL/ min/1.73m2. The eGFR declines with age. An eGFR of 60-89 may be normal in [facility] mL/min/1. some populations, particularly the elderly, for whom the CKD-EPI formula has not been extensively validated. Use of the eGFR is not recommended in the following populations: [address] Individuals with unstable creatinine concentrations, including patients and those with serious co-morbid conditions. Patients with extremes in muscle mass or diet. The data above are obtained from the National Kidney Disease Education Program (NKDEP) which additionally recommends that when the eGFR is used in patients with extremes of body mass index for purposes of drug dosing, the eGFR should be multiplied by the estimated BMI. ELECTROLYTE Calcium Lvl 7.3 mg/dL 8.5 - 10.5 08/06 [facility] ELECTROLYTE Chloride Lvl 110 meq/L 95 - 109 08/06 [facility]2017 [facility] ELECTROLYTE Glucose Lvl 77 mg/dL 70 - 99 08/06 [facility] ELECTROLYTE Creatinine 1.07 mg/dL 0.50 - 08/06 [facility] S Lvl 1.40 [facility] ELECTROLYTE BUN 7 mg/dL 7 - 22 08/06 [facility] ELECTROLYTE Sodium Lvl 141 meq/L 135 - 145 08/06 [facility] ELECTROLYTE CO2 20 meq/L 24 - 32 08/06 [facility] HEMATOLOGY WBC 26.3 K/CMM 3.7 - 10.4 08/06 [facility] HEMATOLOGY Platelet 209 K/CMM 133 - 450 08/06 [facility] HEMATOLOGY RDW 13.5 % 11.5 - 08/06 [facility] 14.5 [facility] HEMATOLOGY Hct 39.5 % 42.0 - 08/06 [facility] 54.0 [facility] HEMATOLOGY MPV 8.1 fL 7.4 - 10.4 08/06 [facility] HEMATOLOGY MCHC 33.2 g/dL 32.0 - 08/06 [facility] 36.0 [facility] HEMATOLOGY Hgb 13.1 g/dL 14.0 - 08/06 [facility] 18.0 [facility] HEMATOLOGY RBC 4.25 M/CMM 4.70 - 08/06 6.10 [facility] HEMATOLOGY MCH 30.9 pg 27.0 - 08/06 [facility] 31.0 [facility] HEMATOLOGY MCV 92.8 fL 80.0 - 08/06 [facility] 94.0 [facility] HEMATOLOGY Monocytes 7.6 % 2.0 - 12.0 08/06 [facility] HEMATOLOGY Lymphocytes 7.7 % 20.0 - 08/06 [place] 40.0 [facility] HEMATOLOGY Basophils 0.2 % 0.0 - 1.0 08/06 [facility] HEMATOLOGY Segs-Bands # 22.2 K/CMM 1.5 - 8.1 08/06 2016 [facility] HEMATOLOGY Monocytes # 2.0 K/CMM 0.0 - 0.8 08/[address] [place] [address] HEMATOLOGY Lymphocytes # 2.0 K/CMM 1.0 - 5.5 08/[address] [place] [address] HEMATOLOGY Basophils # 0.1 K/CMM 0.0 - 0.2 08/06 [facility] HEMATOLOGY Segs 84.5 % 45.0 - 08/06 [facility] 75.0 [facility] PARATHYROID Ca Norm WB 0.99 1.05 - 08/06 [facility] PROFILE mMol/L 1. [facility] PARATHYROID Ca Ion WB 1.04 1.05 - 08/06 [facility] PROFILE mMol/L 1. [facility] Brain wo Brain wo EXAM : MRI OF THE BRAIN WITHOUT CONTRAST 10/07 [facility] contrast contrast MRI - Medical MRI This report was dictated by a Jig Worker/Fellow. I have personally reviewed the images as Center well as the Resident's interpretation and agree with the findings. DATE: Read by: Laura Ann DO Resident: Laura Ann DO Dictated Date/time: 10/07/14 13:38 Electronically Signed by: Franco Lowe MD 10/07/14 16:11 FINAL REPORT INDICATION: Seizures TECHNIQUE: Multiplanar sequences are obtained without MR contrast. COMPARISON: Prior brain MRI, 11/02/2004, 10/24/2004, and 03/04/2004 FINDINGS: When compared to the most recent examination, 11/02/2004, there has been resolution of the previously noted left hemispheric epidural hematoma without complications. Redemonstration of right-sided temporal lobectomy, the GRE sequences demonstrate no blood products in the surgical site. Some gliosis is present at the surgical margins. At least 2 stable small foci of increased T2 signal in the right stevens radiata. There is a new focus of increased T2 signal in the subcortical white matter of the right parietal lobe, axial image 12. Stable focus of increased T2 signal in the left centrum semiovale adjacent to the body of the left lateral ventricle is again felt to represent encephalomalacia. Stable signal changes and morphologic appearance of the left hippocampal gyrus is again consistent with mesial temporal sclerosis; this involves the head , body, and tail segments. In addition there are stable atrophic changes in the left frontoparietal periventricular white matter. No heterotopic pfeiffer matter, no cortical dysplasia. The white matter is normally myelinated. No restricted diffusion. Sagittal images show normally formed corpus callosum. The sella is normal in size. There is no cerebellar tonsillar ectopia. Ventricles are not enlarged. No pathological extra-axial fluid collection is identified. Cerebral sulci and basal cisterns are well preserved. Normal signal voids are maintained in the intracranial vessels and dural venous sinuses, consistent with patency. There is normal aeration of the middle ear cavities and mastoid air cells. The paranasal sinuses demonstrate a few small polyps, but are otherwise clear. The orbits are grossly normal. IMPRESSION: 1. Expected evolution of post surgical changes of right temporal lobectomy. 2. Interval resolution of left epidural hematoma. 3. Stable focus of encephalomalacia in the left centrum semiovale and ipsilateral mesial temporal sclerosis. CHEM PANEL ALANINE 28 unit/L 0 - 65 04/13 [facility] AMINO [facility] CHEM PANEL Albumin Lvl 4.1 g/dL 3.5 - 5.0 04/13 [facility]2013 [facility] CHEM PANEL Bili Direct 0.1 mg/dL 0.0 - 0.3 04/13 [facility] CHEM PANEL Alk Phos 99 unit/L 39 - 136 04/13 [facility] CHEM PANEL Bili Total 0.4 mg/dL 0.2 - 1.3 04/13 [facility] CHEM PANEL ASPARTATE 13 unit/L 0 - 37 04/13 [facility] CHEM PANEL Total Protein 7.2 g/dL 6.4 - 8.4 04/13 [facility] CHEM PANEL Globulin 3.1 g/dL 2.0 - 4.0 04/13 [facility] CHEM PANEL Bili Indirect 0.3 mg/dL 0.0 - 1.0 04/13 [facility]2013 [facility] CHEM PANEL A/G Ratio 1.3 0.7 - 1.6 04/13 [facility] ELECTROLYTE AGAP 12.2 meq/L 10.0 - 04/13 [facility] S 20.0 [facility] ELECTROLYTE eGFR 119 04/13 1Result Comment: The eGFR is calculated using the CKD-EPI formula. In most young, healthy individuals the eGFR will be > 90 mL/min/1.73m2. The eGFR declines with age. An eGFR of 60-89 may be normal in [facility] mL/min/1.7 /2013 some populations, particularly the elderly, for whom the CKD-EPI formula has not been extensively validated. Use of the eGFR is not recommended in the following populations: [address] Individuals with unstable creatinine concentrations, including patients and those with serious co-morbid conditions. Patients with extremes in muscle mass or diet. The data above are obtained from the National Kidney Disease Education Program (NKDEP) which additionally recommends that when the eGFR is used in patients with extremes of body mass index for purposes of drug dosing, the eGFR should be multiplied by the estimated BMI. ELECTROLYTE BUN 6 mg/dL 7 - 22 04/13 [facility] ELECTROLYTE Glucose Lvl 77 mg/dL 70 - 99 04/13 2Interpretive Data: Adult reference range values reflect the clinical guidelines of the [place] [employer]. [facility] ELECTROLYTE Creatinine 0.9 mg/dL 0.5 - 1.4 04/13 [facility] Lvl [facility] ELECTROLYTE Sodium Lvl 141 meq/L 135 - 145 04/13 [facility] ELECTROLYTE Calcium Lvl 9.4 mg/dL 8.5 - 10.5 04/13 [facility] ELECTROLYTE CO2 30 meq/L 24 - 32 04/13 [facility] ELECTROLYTE Chloride Lvl 102 meq/L 95 - 109 04/13 [facility] ELECTROLYTE Potassium Lvl 3.2 meq/L 3.5 - 5.1 04/13 [facility] HEMATOLOGY MCV 89.9 fL 80.0 - 04/13 94.0 [facility] HEMATOLOGY RDW 13.1 % 11.5 - 04/13 14.5 [facility] HEMATOLOGY MCHC 34.8 g/dL 32.0 - 04/13 36.0 [facility] HEMATOLOGY MCH 31.3 pg 27.0 - 04/13 31.0 [facility] HEMATOLOGY Hct 42.0 % 42.0 - 04/13 54.0 [facility] HEMATOLOGY Hgb 14.6 g/dL 14.0 - 04/13 18.0 [facility] HEMATOLOGY RBC X 10x6 4.67 M/CMM 4.70 - 04/13 6.10 [facility] HEMATOLOGY WBC X 10x3 8.3 K/CMM 3.7 - 10.4 04/13 [facility] HEMATOLOGY Platelet 275 K/CMM 133 - 450 04/13 [facility] HEMATOLOGY MPV 8.2 fL 7.4 - 10.4 04/13 [facility] HEMATOLOGY Monocytes 11.4 % 2.0 - 12.0 04/13 [facility] HEMATOLOGY Segs-Bands # 4.3 K/CMM 1.5 - 8.1 04/13 [facility] HEMATOLOGY Basophils 0.7 % 0.0 - 1.0 04/13 [facility] HEMATOLOGY Lymphocytes # 2.5 K/CMM 1.0 - 5.5 04/13 [facility] HEMATOLOGY Eosinophils 5.6 % 0.0 - 4.0 04/13 [facility] HEMATOLOGY Basophils # 0.1 K/CMM 0.0 - 0.2 04/13 [facility] HEMATOLOGY Eosinophils # 0.5 K/CMM 0.0 - 0.5 04/13 [facility] HEMATOLOGY Monocytes # 1.0 K/CMM 0.0 - 0.8 04/13 [facility] HEMATOLOGY Segs 51.9 % 45.0 - 04/13 75.0 [facility] HEMATOLOGY Lymphocytes 30.4 % 20.0 - 04/13 [facility] 40.0 [facility] TOXICOLOGY Lacosamide 6.3 04/13 3Result Comment: Reference Range: [facility] Lvl microgram Expected concentrations of lacosamide in patients Medical mL receiving recommended daily dosages: Up to Center 15.0 mcg/mL. Toxic range not established Test Performed at: [employer] [facility], [address] [place] [id number] Lisa Harrison MD, FCAP TOXICOLOGY Carbamaz Lvl null 8.0 - 12.0 04/13 [facility] HEMATOLOGY MCV 91.2 fL 80.0 - 03/12 Normal [facility] 94.0 [facility] HEMATOLOGY Hct 39.0 % 42.0 - 03/12 LOW [facility] 54.0 [facility] HEMATOLOGY MPV 8.3 fL 7.4 - 10.4 03/12 Normal [facility] HEMATOLOGY Platelet 279 K/CMM 133 - 450 03/12 Normal [facility] HEMATOLOGY RDW 13.3 % 11.5 - 03/12 Normal [facility] 14. [facility] HEMATOLOGY MCHC 33.4 g/dL 32.0 - 03/12 Normal [facility] 36.0 [facility] HEMATOLOGY MCH 30.5 pg 27.0 - 03/12 Normal [facility] 31.0 [facility] HEMATOLOGY WBC X 10x3 15.3 K/CMM 3.7 - 10.4 03/12 [facility] HEMATOLOGY RBC X 10x6 4.27 M/CMM 4.70 - 03/12 LOW [facility] 6.10 [facility] HEMATOLOGY Hgb 13.0 g/dL 14.0 - 03/12 LOW [facility] 18.0 [facility] HEMATOLOGY Monocytes 6.7 % 2.0 - 12.0 03/12 Normal [facility] HEMATOLOGY Lymphocytes 13.2 % 20.0 - 03/12 [facility] 40.0 [facility] HEMATOLOGY Segs 72.2 % 45.0 - 03/12 [facility] 75.0 [facility] HEMATOLOGY Eosinophils 7.8 % 0.0 - 4.0 03/12 [facility] HEMATOLOGY Segs-Bands # 11.1 K/CMM 1.5 - 8.1 03/12 [facility] HEMATOLOGY Basophils 0.1 % 0.0 - 1.0 03/12 Normal [facility] HEMATOLOGY Lymphocytes # 2.0 K/CMM 1.0 - 5.5 03/12 Normal [facility] HEMATOLOGY Eosinophils # 1.2 K/CMM 0.0 - 0.5 03/12 [facility] HEMATOLOGY Monocytes # 1.0 K/CMM 0.0 - 0.8 03/12 [facility] HEMATOLOGY aPTT 30.0 s 22.9 - 03/12 Normal 5Interpretive [facility] 35.8 Data: Heparin [facility] Therapeutic Center Range: 57 - 92 Seconds HEMATOLOGY PROTIME 13.3 s 12.0 - 03/12 Normal [facility] 14.7 [facility] HEMATOLOGY INR 1.02 0.85 - 03/12 Normal 4Interpretive Data: RECOMMENDED RANGES FOR PROTIME INR: [facility] . 2.0-3.0 for most medical and surgical thromboembolic states. Medical 2.5-3.5 for artificial heart valves and recurrent embolism. Center INR SHOULD BE USED ONLY FOR PATIENTS ON STABLE ANTICOAGULANT THERAPY. CHEMISTRY Glucose Lvl 81 mg/dL 70 - 99 03/12 Normal 3Interpretive Data: Adult reference range values reflect the clinical guidelines of the [place] [employer]. [facility] CHEMISTRY Chloride Lvl 104 meq/L 95 - 109 03/12 Normal [facility] CHEMISTRY Potassium Lvl 4.3 meq/L 3.5 - 5.1 03/12 Normal 1Result Comment: [facility] Moderately Hemolyzed. CHEMISTRY Sodium Lvl 140 meq/L 135 - 145 03/12 Normal [facility] CHEMISTRY Creatinine 0.4 mg/dL 0.5 - 1.4 03/12 LOW [facility] CHEMISTRY BUN 7 mg/dL 7 - 22 03/12 Normal [facility] CHEMISTRY eGFR 166 03/12 2Result Comment: The eGFR is calculated using the CKD-EPI formula. In most young, healthy individuals the eGFR will be >90 mL/ min/1.73m2. The eGFR declines with age. An eGFR of 60-89 may be normal in [facility] mL/min/1. some populations, particularly the elderly, for whom the CKD-EPI formula has not been extensively validated. Use of the eGFR is not recommended in the following populations: [address] Individuals with unstable creatinine concentrations, including patients and those with serious co-morbid conditions. Patients with extremes in muscle mass or diet. The data above are obtained from the National Kidney Disease Education Program (NKDEP) which additionally recommends that when the eGFR is used in patients with extremes of body mass index for purposes of drug dosing, the eGFR should be multiplied by the estimated BMI. CHEMISTRY AGAP 11.3 meq/L 10.0 - 03/12 Normal [facility] CHEMISTRY Calcium Lvl 8.8 mg/dL 8.5 - 10.5 03/12 Normal [facility] CHEMISTRY CO2 29 meq/L 24 - 32 03/12 Normal [facility] HEMATOLOGY Epi 5.5 61 % agg. 03/12 [facility] HEMATOLOGY Ris 1.5 86 % agg. 03/12 [facility] HEMATOLOGY AA 2.5 8 % agg. 03/12 [facility] HEMATOLOGY AA 5.0 46 % agg. 03/12 [facility] HEMATOLOGY Epi 11.0 66 % agg. 03/12 [facility] HEMATOLOGY ADP 5.0 uM/ml 65 % agg. 03/12 [facility] HEMATOLOGY Ris .75 13 % agg. 03/12 [facility] HEMATOLOGY Plt Agg Platelet 03/12 [facility] Interp aggregatio Medical n study Center shows decreased aggregatio n with low concentrat ion of arachidoni c acid and mildly decreased aggregatio n with higher concentrat ion of arachidoni c acid and low concentrat ion of ADP. Aggregatio n with ristocetin , collagen and epinephrin e is adequate. Impression : findings are consistent with mild platelet dysfunctio n. This pattern is suggestive of medication effect (most likely NSAIDs versus Aspirin). Clinical correlatio n is required. CPT: 33272 x5 HEMATOLOGY ADP 2.5 uM/ml 36 % agg. 03/12 [facility] HEMATOLOGY Collagen 5.0 76 % agg. 03/12 [facility] BLOOD BANK Antibody Scrn Negative 03/12 Normal RESULTS [facility] (03/12/2013 08:00:00) [place] BLOOD BANK ABO/Rh O POS 03/12 RESULTS [facility] BLOOD BANK Antibody Scrn Negative 03/10 Normal RESULTS [facility] (03/10/2013 11:50:00) [place] BLOOD BANK ABO/Rh O POS 03/10 [facility] CHEMISTRY A/G Ratio 1.0 0.7 - 1.6 03/10 Normal [facility] CHEMISTRY B/C Ratio 12 6 - 25 03/10 Normal [facility] CHEMISTRY AGAP 12.6 meq/L 10.0 - 03/10 Normal [facility] 20.0 [facility] CHEMISTRY Globulin 4.0 g/dL 2.0 - 4.0 03/10 Normal [facility] CHEMISTRY eGFR 105 03/10 1Result Comment: The eGFR is calculated using the CKD-EPI formula. In most young, healthy individuals the eGFR will be >90 mL/ min/1.73m2. The eGFR declines with age. An eGFR of 60-89 may be normal in [facility] mL/min/1. some populations, particularly the elderly, for whom the CKD-EPI formula has not been extensively validated. Use of the eGFR is not recommended in the following populations: [place] [address] Center Individuals with unstable creatinine concentrations, including patients and those with serious co-morbid conditions. Patients with extremes in muscle mass or diet. The data above are obtained from the National Kidney Disease Education Program (NKDEP) which additionally recommends that when the eGFR is used in patients with extremes of body mass index for purposes of drug dosing, the eGFR should be multiplied by the estimated BMI. CHEMISTRY Sodium Lvl 140 meq/L 135 - 145 03/10 Normal [facility] CHEMISTRY ASPARTATE 17 unit/L 0 - 37 03/10 Normal [facility] CHEMISTRY Total Protein 7.8 g/dL 6.4 - 8.4 03/10 Normal [facility] CHEMISTRY Bili Total 0.6 mg/dL 0.2 - 1.3 03/10 Normal [facility] CHEMISTRY Calcium Lvl 9.5 mg/dL 8.5 - 10.5 03/10 Normal [facility] CHEMISTRY CO2 27 meq/L 24 - 32 03/10 Normal [facility] CHEMISTRY Chloride Lvl 104 meq/L 95 - 109 03/10 Normal [facility] CHEMISTRY Potassium Lvl 3.6 meq/L 3.5 - 5.1 03/10 Normal [facility] CHEMISTRY BUN 12 mg/dL 7 - 22 03/10 Normal [facility] CHEMISTRY Glucose Lvl 76 mg/dL 70 - 99 03/10 Normal 2Interpretive Data: Adult reference range values reflect the clinical guidelines of the [place] [employer]. [facility] CHEMISTRY Alk Phos 106 unit/L 39 - 136 03/10 Normal [facility] CHEMISTRY Albumin Lvl 3.8 g/dL 3.5 - 5.0 03/10 Normal [facility] CHEMISTRY ALANINE 33 unit/L 0 - 65 03/10 Normal [facility] CHEMISTRY Creatinine 1.0 mg/dL 0.5 - 1.4 03/10 Normal [facility] HEMATOLOGY Monocytes 10.8 % 2.0 - 12.0 03/10 Normal [facility] HEMATOLOGY Eosinophils 14.6 % 0.0 - 4.0 03/10 HI [facility] HEMATOLOGY Lymphocytes # 2.9 K/CMM 1.0 - 5.5 03/10 [facility] HEMATOLOGY Eosinophils # 1.6 K/CMM 0.0 - 0.5 03/10 HI [facility] HEMATOLOGY Lymphocytes 26.8 % 20.0 - 03/10 Normal [place] 40.0 /2013 [facility] HEMATOLOGY Basophils 0.4 % 0.0 - 1.0 03/10 Normal [facility] HEMATOLOGY Segs-Bands # 5.1 K/CMM 1.5 - 8.1 03/10 Normal [facility] HEMATOLOGY Monocytes # 1.2 K/CMM 0.0 - 0.8 03/10 HI [facility] HEMATOLOGY Segs 47.4 % 45.0 - 03/10 Normal [place] 75.0 /2013 [facility] HEMATOLOGY MPV 8.2 fL 7.4 - 10.4 03/10 Normal [facility] HEMATOLOGY Platelet 281 K/CMM 133 - 450 03/10 Normal [facility] HEMATOLOGY RDW 13.1 % 11.5 - 03/10 Normal [facility] 14.5 [facility] HEMATOLOGY MCHC 34.4 g/dL 32.0 - 03/10 Normal [facility] 36.0 [facility] HEMATOLOGY MCH 31.1 pg 27.0 - 03/10 HI [place] 31.0 [facility] HEMATOLOGY MCV 90.5 fL 80.0 - 03/10 Normal [facility] 94.0 [facility] HEMATOLOGY Hgb 15.9 g/dL 14.0 - 03/10 Normal [facility] 18.0 [facility] HEMATOLOGY RBC X 10x6 5.10 M/CMM 4.70 - 03/10 Normal [facility] 6.10 [facility] HEMATOLOGY Hct 46.2 % 42.0 - 03/10 Normal [facility] 54.0 [facility] HEMATOLOGY WBC X 10x3 10.7 K/CMM 3.7 - 10.4 03/10 [facility] HEMATOLOGY INR 0.98 0.85 - 03/10 Normal 3Interpretive Data: RECOMMENDED RANGES FOR PROTIME INR: [facility] 03.05 2.0-3.0 for most medical and surgical thromboembolic states. Medical 2.5-3.5 for artificial heart valves and recurrent embolism. Center INR SHOULD BE USED ONLY FOR PATIENTS ON STABLE ANTICOAGULANT THERAPY. HEMATOLOGY aPTT 30.0 s 22.9 - 03/10 Normal 4Interpretive [facility] 35.8 Data: Heparin [facility] Range: 57 - 92 Seconds HEMATOLOGY PROTIME 12.9 s 12.0 - 03/10 Normal [facility] 14.7 [facility] Vital Signs Vital Sign Value Date Comments Source Respitory Rate 18 08/26/2016 [facility] Systolic (mm Hg) 127 08/26/2016 [facility] Diastolic (mm Hg) 80 08/26/2016 [facility] Respitory Rate 20 08/26/2016 [facility] Temperature Oral (F) 98.0 F 08/26/2016 [facility] Systolic (mm Hg) 129 08/26/2016 [facility] Diastolic (mm Hg) 87 08/26/2016 [facility] Respitory Rate 29 08/26/2016 [facility] Systolic (mm Hg) 125 08/26/2016 [facility] Diastolic (mm Hg) 83 08/26/2016 [facility] Temperature Oral (F) 97.8 F 08/26/2016 [facility] Temperature Oral (F) 97.4 F 08/26/2016 [facility] Height 165.1 cm 08/24/2016 [facility] BMI Calculated 26.34 08/24/2016 [facility] Weight 71.8 08/24/2016 [facility] Height 165.1 cm 08/24/2016 [facility] Height 182.88 cm 08/24/2016 [facility] BMI Calculated 26.91 08/24/2016 [facility] Weight 90 08/24/2016 [facility] Heart Rate 124 08/24/2016 [facility] Systolic (mm Hg) 101 08/08/2016 [facility] Diastolic (mm Hg) 56 08/08/2016 [facility] Respitory Rate 20 08/08/2016 [facility] Systolic (mm Hg) 126 08/08/2016 [facility] Diastolic (mm Hg) 78 08/08/2016 [facility] Respitory Rate 32 08/08/2016 [facility] Systolic (mm Hg) 126 08/08/2016 [facility] Diastolic (mm Hg) 87 08/08/2016 [facility] Respitory Rate 34 08/08/2016 [facility] Temperature Oral (F) 98.3 F 08/08/2016 [facility] Temperature Oral (F) 97.6 F 08/08/2016 [facility] Temperature Oral (F) 99.1 F 08/08/2016 [facility] Weight 73.381 08/07/2016 [facility] BMI Calculated 23.68 08/07/2016 [facility] Weight 72.727 08/07/2016 [facility] Height 175.26 cm 08/07/2016 [facility] Heart Rate 97 08/06/2016 [facility] Center Diastolic (mm Hg) 89 04/17/2013 [facility] Center Systolic (mm Hg) 136 04/17/2013 [facility] Heart Rate 75 04/17/2013 [facility] Center Respitory Rate 20 04/17/2013 [facility] Temperature Oral (F) 98.2 F 04/17/2013 [facility] Center Diastolic (mm Hg) 90 04/17/2013 [facility] Heart Rate 75 04/17/2013 [facility] Temperature Oral (F) 97.8 F 04/17/2013 [facility] Center Systolic (mm Hg) 142 04/17/2013 [facility] Center Respitory Rate 20 04/17/2013 [facility] Center Diastolic (mm Hg) 84 04/16/2013 [facility] Center Systolic (mm Hg) 130 04/16/2013 [facility] Temperature Oral (F) 98.1 F 04/16/2013 [facility] Heart Rate 81 04/16/2013 [facility] Center Respitory Rate 24 04/16/2013 [facility] BMI Calculated 23.68 04/13/2013 [facility] Weight 72.727 04/13/2013 [facility] Height 175.26 cm 04/13/2013 [facility] Center Diastolic (mm Hg) 84 03/13/2013 [facility] Center Systolic (mm Hg) 127 03/13/2013 [facility] Center Respitory Rate 20 03/13/2013 [facility] Center Systolic (mm Hg) 130 03/13/2013 [facility] Center Diastolic (mm Hg) 69 03/13/2013 [facility] Center Systolic (mm Hg) 108 03/13/2013 [facility] Center Diastolic (mm Hg) 68 03/13/2013 [facility] Center Respitory Rate 20 03/12/2013 [facility] Temperature Oral (F) 97.5 F 03/12/2013 [facility] Center Respitory Rate 16 03/12/2013 [facility] Temperature Oral (F) 98 F 03/12/2013 [facility] Heart Rate 92 03/12/2013 [facility] Height 175.26 cm 03/12/2013 [facility] Weight 79.545 03/12/2013 [facility] Heart Rate 92 03/11/2013 [facility] Systolic (mm Hg) 144 03/11/2013 [facility] Respitory Rate 16 03/11/2013 [facility] Diastolic (mm Hg) 87 03/11/2013 [facility] Diastolic (mm Hg) 90 03/11/2013 [facility] Systolic (mm Hg) 149 03/11/2013 [facility] Respitory Rate 11 03/11/2013 [facility] Diastolic (mm Hg) 99 03/10/2013 [facility] Systolic (mm Hg) 168 03/10/2013 [facility] Respitory Rate 13 03/10/2013 [facility] Heart Rate 78 03/10/2013 [facility] Weight 79.545 03/10/2013 [facility] Height 175.26 cm 03/10/2013 [facility] Weight 79.545 03/02/2013 [facility] Height 175.26 cm 03/02/2013 [facility] Diastolic (mm Hg) 69 07/25/2012 [facility] Systolic (mm Hg) 116 07/25/2012 [facility] Temperature Oral (F) 97.1 F 07/25/2012 [facility] Systolic (mm Hg) 124 07/25/2012 [facility] Diastolic (mm Hg) 72 07/25/2012 [facility] Respitory Rate 17 07/25/2012 [facility] Temperature Oral (F) 97.6 F 07/25/2012 [facility] Temperature Oral (F) 97.3 F 07/24/2012 [facility] Diastolic (mm Hg) 64 07/24/2012 [facility] Systolic (mm Hg) 113 07/24/2012 [facility] Weight 72.727 07/24/2012 [facility] Height 175.26 cm 07/24/2012 [facility] Encounters Location Location Encounter Encounter Reason Attending ADM DC Status Source Details Type Number For Provider Date Date Visit Anton CARL [id number] LAURA 07/24 07/25 Active [facility] Medical 1 CED /2012 Medical [facility] Anton DS [id number] SEIZURES BATSHEVA 03/10 03/10 Active [facility] Medical 0 CRISTIAN [facility] CARL [id number] BATSHEVA 03/12 03/13 Active [facility] Medical 1 CRISTIAN [facility] Inpatient [id number] INTRACTA LIS 04/13 Active [facility] Medical 2 BLE [facility] SEIZURE [facility] Inpatient [id number] _MAPID:E Lis 04/13 04/17 [facility] Sprakers 2 [id number] NCNTRRFV [facility] [id number] [facility] Research [id number] Lis 07/15 10/14 [facility] Kobi Patient 8 [facility] Research [id number] Lis 09/24 12/24 [facility] Kobi Patient 9 [facility] Outpatient [id number] Lis 10/07 10/08 [facility] Kobi 2 Ferrari [facility] Observation [id number] Shahid 08/06 08/08 [facility] 1 James Jr /2016 [facility] Inpatient [id number] Vera 08/24 [facility] Procedures Procedure Code Date Perfomer Comments Source Lobectomy of [id number] 02/18/2004 [facility] Operation [id number] [facility] ORIF - Open [id number] [facility] reduction and Medical internal Center fixation of fracture
--- OUTSIDE RECORDS SUMMARY | 2018-08-02 16:29 | XMS REPORT | Summary of Care ---
:1990 Author Organization [facility] Address [address] [place] [id number] Encounter HQ Encntr_alias(FIN) [id number] Date(s): 08/23/16 - 08/26/[address] Professional Services provided by [facility] [place] [address]- Discharge Disposition: Home or Self Care Attending Physician: Zaire Newell MD Admitting Physician: Vera Rodriguez MD Vital Signs Most recent to oldest 1 2 3 [Reference Range]: Height 165.1 cm 165.1 cm 182.88 cm (08/24/16 8:40 AM) (08/24/16 3:33 AM) (08/24/16 2:41 AM) Temperature Oral [96.4-99.1 98.0 DegF 97.8 DegF 97.4 DegF DegF] (08/26/16 12:00 PM) (08/26/16 8:45 AM) (08/26/16 5:00 AM) Blood Pressure [90-140/60-90 127/80 mmHg 129/87 mmHg 125/83 mmHg mmHg] (08/26/16 12:00 PM) (08/26/16 11:00 AM) (08/26/16 10:00 AM) Respiratory Rate [14-20 18 BRMIN 20 BRMIN 29 BRMIN BRMIN] (08/26/16 2:20 PM) (08/26/16 12:00 PM) *HI* (08/26/16 11:00 AM) Peripheral Pulse Rate 124 bpm [60-100 bpm] *HI* (08/23/16 9:52 PM) Weight 71.8 kg 90 kg (08/24/16 3:33 AM) (08/23/16 10:01 PM) Body Mass Index 26.34 m2 26.91 m2 (08/24/16 3:33 AM) (08/23/16 10:01 PM) Problem List Condition Effective Dates Status Health Status Informant Depression(Confirmed) Active Hematoma(Confirmed) Active Seizure disorder(Confirmed) Active Varicocele(Confirmed) Resolved Viral encephalitis(Confirmed) 2000 Resolved Allergies, Adverse Reactions, Alerts Substance Reaction Severity Status NKDA Active Medications calcium carbonate 500 mg (200 mg elemental calcium) oral tablet 500 mg, 1 tab, Route: PO, Drug form: CHEWTAB, PRN, Dosing Weight 71.8, kg, PRN Abnormal Lab Result, FOR ICU USE ONLY, Start date: 08/24/16 5:58:00 CDT, Duration: 30 day, Stop date: 09/23/16 5:57:00 CDT Notes: (Same As: Sandee)Calcium Carbonate 500 yz=887 mg elemental calcium Dose=_ mg calcium carbonate ( mg elemental calcium) Start Date: 08/24/16 Stop Date: 08/26/16 Status: Discontinuedcalcium carbonate 500 mg (200 mg elemental calcium) oral tablet 1,000 mg, 2 tab, Route: PO, Drug form: CHEWTAB, PRN, Dosing Weight 71.8, kg, PRN Abnormal Lab Result, FOR ICU USE ONLY, Start date: 08/24/16 5:58:00 CDT, Duration: 30 day, Stop date: 09/23/16 5:57:00 CDT Notes: (Same As: Sandee)Calcium Carbonate 500 ak=894 mg elemental calcium Dose=_ mg calcium carbonate ( mg elemental calcium) Start Date: 08/24/16 Stop Date: 08/26/16 Status: Discontinuedcalcium gluconate + sodium chloride 0.9% INJ 50 mL 1 gm, 10 mL, Route: IVPB, PRN, Dosing Weight 71.8, kg, PRN Abnormal Lab Result, Start date: 175:58:00 CDT, Duration: 30 day, Stop date: 09/23/16 5:57:00 CDT, FOR ICU USE ONLY Notes: WASTE: F/P - Sink; E - Municipal Trash Bin Start Date: 08/24/16 Stop Date: 08/26/16 Status: Discontinueddocusate 50 mg, 1 cap, Route: PO, Drug form: CAP, BID, Dosing Weight 71.8, kg, Start date : 08/25/16 9:00:00 CDT, Duration: 30 day, Stop date: 09/23/16 17:00:00 CDT Notes: (Same as: Colace) (Do Not Crush) Start Date: 08/25/16 Stop Date: 08/26/16 Status: DiscontinuedfentaNYL 1000microgram/20ml drip (pyxis) 1,000 microgram 1,000 microgram, 20 mL, Rate: Titrate, Start Dose: 50 microgram/hr, Titration: 25 microgram/hour every 15 minutes, Goal(s): RASS, Max Dose: 300 microgram/hr, Route: IV, Dosing Weight 90 kg, Total Volume: 20, Start date: 08/23/16 23:21:00 CDT, Duration... Start Date: 08/23/16 Stop Date: 08/24/16 Status: Discontinuedfosphenytoin 2,000 mg, Route: IVPB, ONCE, Dosing Weight 90, kg, Priority: STAT, Start date: 08/23/16 23:13:00 CDT, Stop date: 08/23/16 23:13:00 CDT, Loading dose Start Date: 08/23/16 Stop Date: 08/23/16 Status: CompletedFycompa Fycompa, 2 mg, Route: PO, Bedtime, 08/24/16 21:00:00 CDT, Duration: 30 day, Stop date: 09/22/16 21:00:00 CDT Start Date: 08/24/16 Stop Date: 08/24/16 Status: Deletedheparin 5,000 unit, 1 mL, Route: SUB-Q, Drug form: INJ, Q8H, Dosing Weight 90, kg, Start date: 08/24/16 8:00:00 CDT, Duration: 30 day, Stop date: 09/23/16 0:00:00 CDT Notes: porcine heparin Start Date: 08/24/16 Stop Date: 08/26/16 Status: DiscontinuedlamoTRIgine 300 mg, 3 tab, Route: PO, Drug form: TAB, BID, Dosing Weight 90, kg, Start date : 08/24/16 9:00:00 CDT, Duration: 30 day, Stop date: 09/22/16 17:00:00 CDT Notes: (Same as:LaMICtal) Start Date: 08/24/16 Stop Date: 08/26/16 Status: DiscontinuedlamoTRIgine 100 mg oral tablet 300 mg=3 tab, PO, BID, # 180 tab, 3 Refill(s), Pharmacy: [facility] [place] Start Date: 08/25/16 Status: OrderedLORazepam 1 mg, 0.5 mL, Route: IVP, Drug form: INJ, Q15Min, Dosing Weight 90, kg, PRN Seizure, Start date: 08/24/16 0:50:00 CDT, Duration: 30 day, Stop date: 0:49:00 CDT Notes: (Same as: Ativan) Start Date: 08/24/16 Stop Date: 08/26/16 Status: Discontinuedmagnesium oxide 800 mg, 2 tab, Route: PO, Drug form: TAB, PRN, Dosing Weight 71.8, kg, PRN Abnormal Lab Result, FOR ICU USE ONLY, Start date: 08/24/16 5:58:00 CDT, Duration: 30 day, Stop date: 09/23/16 5:57:00 CDT Notes: (Same as: Mag-Ox 400)Magnesium oxide [id number] elemental magnesiumDose= ____mg magnesium oxide (___mg elemental magnesium) Start Date: 08/24/16 Stop Date: 08/26/16 Status: Discontinuedmagnesium sulfate 2 gm, 50 mL, Route: IVPB, Drug form: INJ, PRN, Dosing Weight 71.8, kg, PRN Abnormal Lab Result, Start date: 08/24/16 5:58:00 CDT, Duration: 30 day, Stop date: 09/23/16 5:57:00 CDT, FOR ICU USE ONLY Notes: WASTE: F/P - Sink; E - Municipal Trash Bin Start Date: 08/24/16 Stop Date: 08/26/16 Status: DiscontinuedNS (Bolus) IV 1,000 mL, 1,000 ml/hr, Infuse Over: 1 hr, Route: IV, 1,000, Drug form: INJ, ONCE , Priority: STAT, Dosing Weight 71.8 kg, Start date: 08/24/16 5:57:00 CDT, Duration: 1 doses or times, Stop date: 08/24/16 5:57:00 CDT Start Date: 08/24/16 Stop Date: 08/24/16 Status: CompletedNS (Bolus) IV 500 mL, 500 ml/hr, Infuse Over: 1 hr, Route: IV, 500, Drug form: INJ, ONCE, Priority: STAT, Dosing Weight 71.8 kg, Start date: 08/25/16 18:28:00 CDT, Duration: 1 doses or times, Stop date: 08/25/16 18:28:00 CDT Start Date: 08/25/16 Stop Date: 08/25/16 Status: Completedperampanel 2 mg, 1 tab, Route: PO, Drug form: TAB, Bedtime, Start date: 08/24/16 21:00:00 CDT, Duration: 30 day, Stop date: 09/22/16 21:00:00 CDT Notes: (Same as: Maribel)Non-formulary Start Date: 08/24/16 Stop Date: 08/26/16 Status: Discontinuedperampanel 2 mg oral tablet 2 mg=1 tab, PO, Bedtime, # 30 tab, 3 Refill(s) Start Date: 08/25/16 Status: Orderedphenytoin 100 mg, 2 mL, Route: IVP, Drug form: INJ, Q8Hnow, Dosing Weight 90, kg, Start date: 08/24/16 10:00:00 CDT, Duration: 30 day, Stop date: 09/23/16 2:00:00 CDT Notes: (Same as: Pato) Do not infuse greater than 50 mg/min. MEDICATION WASTE Product Size: 100 mgProduct Wasted: ___ mg Start Date: 08/24/16 Stop Date: 08/24/16 Status: Discontinuedphenytoin 50 mg, Route: PO, Drug form: CAP, Q8H, Dosing Weight 71.8, kg, Start date: 08/24 16:00:00 CDT, Duration: 30 day, Stop date: 09/23/16 8:00:00 CDT Start Date: 08/24/16 Stop Date: 08/24/16 Status: Canceledphenytoin 50 mg, Route: PO, BID, Dosing Weight 71.8, kg, Start date: 08/24/16 17:00:00 CDT , Duration: 30 day, Stop date: 09/23/16 9:00:00 CDT Start Date: 08/24/16 Stop Date: 08/24/16 Status: Discontinuedpotassium chloride 20 mEq, 15 mL, Route: NJ, Drug form: LIQ, PRN, Dosing Weight 71.8, kg, PRN Abnormal Lab Result, Start date: 08/24/16 5:58:00 CDT, Duration: 30 day, Stop date: 09/23/16 5:57:00 CDT, FOR ICU USE ONLY Notes: (Same as: Potassium Chloride) Start Date: 08/24/16 Stop Date: 08/26/16 Status: Discontinuedpotassium chloride 20 mEq, 100 mL, Route: IVPB, Drug form: INJ, PRN, Dosing Weight 71.8, kg, PRN Abnormal Lab Result, Via central line, Start date: 08/24/16 5:58:00 CDT, Duration: 30 day, Stop date: 09/23/16 5:57:00 CDT,FOR ICU USE ONLY Notes: (Same as: KCL) Infuse no faster than 10 mEq/hr if given peripherally. Start Date: 08/24/16 Stop Date: 08/26/16 Status: Discontinuedpotassium chloride 10 mEq, 50 mL, Route: IVPB, Drug form: INJ, PRN, Dosing Weight 71.8, kg, PRN Abnormal Lab Result, Via peripheral line, Start date: 08/24/16 5:58:00 CDT, Duration: 30 day, Stop date: 09/23/16 5:57:00 CDT, FOR ICU USE ONLY Notes: (Same as: KCL) Infuse over 2 hours. Start Date: 08/24/16 Stop Date: 08/26/16 Status: Discontinuedpotassium chloride 20 mEq, 1 tab, Route: PO, Drug form: ERTAB, PRN, Dosing Weight 71.8, kg, PRN Abnormal Lab Result, Start date: 08/24/16 5:58:00 CDT, Duration: 30 day, Stop date: 09/23/16 5:57:00 CDT, FOR ICU USE ONLY Notes: (Same as: K-Dur 20)"Do Not Crush" With food and full glass of water Start Date: 08/24/16 Stop Date: 08/26/16 Status: Discontinuedpotassium chloride 20 mEq/15 mL oral liquid 40 mEq, 30 mL, Route: PO, Drug form: LIQ, ONCE, Dosing Weight 71.8, kg, Start date: 08/26/16 7:48:00CDT, Stop date: 08/26/16 7:48:00 CDT Notes: (Same as: Potassium Chloride) Start Date: 08/26/16 Stop Date: 08/26/16 Status: Completedpotassium phosphate + sodium chloride 0.9% INJ 250 mL 30 mmol, 10 mL, Route: IVPB, PRN, Dosing Weight 71.8, kg, PRN Abnormal Lab Result, Start date: 08/24/16 5:58:00 CDT, Duration: 30 day, Stop date: 09/23/16 5:57:00 CDT, FOR ICU USE ONLY Notes: (Same as: K Phosphate.) 1 mMol phoshate has 1.47 mEq potassium Infuse over 4 hours Start Date: 08/24/16 Stop Date: 08/26/16 Status: Discontinuedpotassium phosphate + sodium chloride 0.9% INJ 250 mL 45 mmol, 15 mL, Route: IVPB, PRN, Dosing Weight 71.8, kg, PRN Abnormal Lab Result, Start date: 08/24/16 5:58:00 CDT, Duration: 30 day, Stop date: 09/23/16 5:57:00 CDT, FOR ICU USE ONLY Notes: (Same as: K Phosphate.) 1 mMol phoshate has 1.47 mEq potassium Infuse over 4 hours Start Date: 08/24/16 Stop Date: 08/26/16 Status: Discontinuedpotassium phosphate + sodium chloride 0.9% INJ 250 mL 15 mmol, 5 mL, Route: IVPB, PRN, Dosing Weight 71.8, kg, PRN Abnormal Lab Result , Start date: 08/24/16 5:58:00 CDT, Duration: 30 day, Stop date: 09/23/16 5:57: 00 CDT, FOR ICU USE ONLY Notes: (Same as: K Phosphate.) 1 mMol phoshate has 1.47 mEq potassium Infuse over 4 hours Start Date: 08/24/16 Stop Date: 08/26/16 Status: Discontinuedpotassium phosphate-sodium phosphate 250 mg-280 mg-160 mg oral powder for reconstitution 2 pkt, Route: PO, Drug Form: PDR/REC, Dosing Weight 71.8, kg, PRN, PRN Abnormal Lab Result, FOR ICU USE ONLY, Start date: 08/24/16 5:58:00 CDT, Duration: 30 day , Stop date: 09/23/16 5:57:00 CDT Notes: (Same as: Phos-NaK) Each 1.5 gm pkt has 250mg phosphorous. Mix w/2.5oz water and stir. Start Date: 08/24/16 Stop Date: 08/26/16 Status: Discontinuedpropofol INJ 1,000 mg 1,000 mg, 100 mL, Rate: Titrate, Start Dose: 5 microgram/kg/min, Titration: 5 microgram/kg/min every15 min, Goal(s): rass -1, Max Dose: 50 microgram/kg/min, Route: IV, Dosing Weight 90 kg, Total Volume: 100, Start date: 08/23/16 21:59: 00 CDT, Stop da... Notes: If Diprivan - change bottle & tubing every 12 hrPer state nursing law propofol can only be given by a nurse if patient is intubated or being intubated (unless the nurse is a DENTIST ATTENDANT). Same as:Diprivan Start Date: 08/23/16 Stop Date: 08/24/16 Status: Discontinuedsenna 8.6 mg, 1 tab, Route: PO, Drug Form: TAB, Dosing Weight 71.8, kg, Daily, Start date: 08/25/16 9:00:00 CDT, Duration: 30 day, Stop date: 09/23/16 9:00:00 CDT Notes: (Same as: Senokot) Start Date: 08/25/16 Stop Date: 08/26/16 Status: Discontinuedsertraline 50 mg, 1 tab, Route: PO, Drug form: TAB, Daily, Dosing Weight 71.8, kg, Start date: 08/26/16 9:00:00CDT, Duration: 30 day, Stop date: 09/24/16 9:00:00 CDT Notes: (Same as: Zoloft) Start Date: 08/26/16 Stop Date: 08/26/16 Status: DiscontinuedSodium Chloride 0.9% (Bolus) IV 1,000 mL, Infuse Over: 1 hr, Route: IV, ONCE, Priority: STAT, Dosing Weight 90 kg, Start date: 08/23/16 22:03:00 CDT, Duration: 1 doses or times, Stop date: 22:03:00 CDT Start Date: 08/23/16 Stop Date: 08/23/16 Status: Completedsodium chloride 0.9% 1000 ml INJ 1,000 mL 1,000 mL, Rate: 100 ml/hr, Infuse over: 10 hr, Route: IV, Dosing Weight 71.8 kg , Total Volume: 1,000, Start date: 08/24/16 5:57:00 CDT, Duration: 30 day, Stop date: 09/23/16 5:56:00 CDT Start Date: 08/24/16 Stop Date: 08/25/16 Status: Discontinuedsodium phosphate + sodium chloride 0.9% INJ 250 mL 15 mmol, 5 mL, Route: IVPB, PRN, Dosing Weight 71.8, kg, PRN Abnormal Lab Result , Start date: 08/24/16 5:58:00 CDT, Duration: 30 day, Stop date: 09/23/16 5:57: 00 CDT, FOR ICU USE ONLY Start Date: 08/24/16 Stop Date: 08/26/16 Status: Discontinuedsodium phosphate + sodium chloride 0.9% INJ 250 mL 30 mmol, 10 mL, Route: IVPB, PRN, Dosing Weight 71.8, kg, PRN Abnormal Lab Result, Start date: 08/24/16 5:58:00 CDT, Duration: 30 day, Stop date: 09/23/16 5:57:00 CDT, FOR ICU USE ONLY Start Date: 08/24/16 Stop Date: 08/26/16 Status: Discontinuedsodium phosphate + sodium chloride 0.9% INJ 250 mL 45 mmol, 15 mL, Route: IVPB, PRN, Dosing Weight 71.8, kg, PRN Abnormal Lab Result, Start date: 08/24/16 5:58:00 CDT, Duration: 30 day, Stop date: 09/23/16 5:57:00 CDT, FOR ICU USE ONLY Start Date: 08/24/16 Stop Date: 08/26/16 Status: DiscontinuedTylenol 650 mg, 2 tab, Route: PO, Drug form: TAB, ONCE, Dosing Weight 71.8, kg, PRN Pain Score 1-3, Start date: 08/24/16 20:12:00 CDT Notes: Do not exceed 4 gm/day. (Same as: Tylenol) Start Date: 08/24/16 Stop Date: 08/26/16 Status: Discontinuedzonisamide 300 mg, 3 cap, Route: PO, Drug form: CAP, Daily, Dosing Weight 90, kg, Start date: 08/24/16 9:00:00 CDT, Duration: 30 day, Stop date: 09/22/16 9:00:00 CDT Notes: Contraindicated in patients with hypersensitivity to sulfonamides.(Same As: Zonegran) Start Date: 08/24/16 Stop Date: 08/26/16 Status: Discontinuedzonisamide 100 mg oral capsule 300 mg=3 cap, PO, Q12H, # 180 cap, 3 Refill(s), Pharmacy: [facility] [place] Start Date: 08/25/16 Status: Ordered Results ELECTROLYTES Most recent to oldest 1 2 3 [Reference Range]: Sodium Lvl [135-145 mEq/L] 140 mEq/L 140 mEq/L 141 mEq/L (08/26/16 5:25 AM) (08/25/16 12:59 AM) (08/24/16 2:27 PM) Potassium Lvl [3.5-5.1 mEq/L] 3.3 mEq/L 3.6 mEq/L 3.6 mEq/L *LOW* (08/25/16 12:59 AM) (08/24/16 2:27 PM) (08/26/16 5:25 AM) Chloride Lvl [95-109 mEq/L] 108 mEq/L 107 mEq/L 108 mEq/L (08/26/16 5:25 AM) (08/25/16 12:59 AM) (08/24/16 2:27 PM) CO2 [24-32 mEq/L] 19 mEq/L 24 mEq/L 23 mEq/L *LOW* (08/25/16 12:59 AM) *LOW* (08/26/16 5:25 AM) (08/24/16 2:27 PM) AGAP [10.0-20.0 mEq/L] 16.3 mEq/L 12.6 mEq/L 13.6 mEq/L (08/26/16 5:25 AM) (08/25/16 12:59 AM) (08/24/16 2:27 PM) CHEM PANEL Most recent to oldest 1 2 3 [Reference Range]: Creatinine Lvl [0.50-1.40 0.88 mg/dL 0.97 mg/dL 1.07 mg/dL mg/dL] (08/26/16 5:25 AM) (08/25/16 12:59 AM) (08/24/16 2:27 PM) eGFR 118 mL/min/1.73m2 1 106 mL/min/1.73m2 2 95 mL/min/1.73m2 3 *NA* *NA* *NA* (08/26/16 5:25 AM) (08/25/16 12:59 AM) (08/24/16 2:27 PM) BUN [7-22 mg/dL] 7 mg/dL 6 mg/dL 8 mg/dL (08/26/16 5:25 AM) *LOW* (08/24/16 2:27 PM) (08/25/16 12:59 AM) B/C Ratio [6-25] See Note 4 (08/24/16 4:38 AM) Glucose Lvl [70-99 mg/dL] 74 mg/dL 82 mg/dL 94 mg/dL (08/26/16 5:25 AM) (08/25/16 12:59 AM) (08/24/16 2:27 PM) Total Protein [6.4-8.4 7.3 g/dL g/dL] (08/24/16 4:38 AM) Albumin Lvl [3.5-5.0 g/dL] 3.7 g/dL (08/24/16 4:38 AM) Globulin [2.7-4.2 g/dL] 3.6 g/dL (08/24/16 4:38 AM) A/G Ratio [0.7-1.6] 1.0 (08/24/16 4:38 AM) Calcium Lvl [8.5-10.5 8.8 mg/dL 8.9 mg/dL 8.7 mg/dL mg/dL] (08/26/16 5:25 AM) (08/25/16 12:59 AM) (08/24/16 2:27 PM) Phosphorus [2.5-4.5 mg/dL] 2.6 mg/dL 2.9 mg/dL 3.9 mg/dL (08/26/16 5:25 AM) (08/25/16 12:59 AM) (08/24/16 4:38 AM) Magnesium Lvl [1.8-2.4 2.0 mg/dL 1.9 mg/dL 2.3 mg/dL mg/dL] (08/26/16 5:25 AM) (08/25/16 12:59 AM) (08/24/16 4:38 AM) ALT [0-65 unit/L] 29 unit/L (08/24/16 4:38 AM) AST [0-37 unit/L] 23 unit/L (08/24/16 4:38 AM) Alk Phos [39-136 unit/L] 96 unit/L (08/24/16 4:38 AM) Bili Total [0.2-1.3 mg/dL] 0.5 mg/dL (08/24/16 4:38 AM) Lactic Acid Lvl [0.5-2.2 1.0 mMol/L mMol/L] (08/24/16 9:19 AM) 1Result Comment: The eGFR is calculated using the CKD-EPI formula. In most young , healthy individualsthe eGFR will be >90 mL/min/1.73m2. The eGFR declines with age. An eGFR of 60-89 may be normal in some populations, particularly the elderly, for whom the CKD-EPI formula has not been extensively validated. Use of the eGFR is not recommended in the following populations: Individuals with unstable creatinine concentrations, including patients and those with serious co-morbid conditions. Patients with extremes in muscle mass or diet. The data above are obtained from the National Kidney Disease Education Program ( NKDEP) which additionally recommends that when the eGFR is used in patients with extremes of body mass index for purposesof drug dosing, the eGFR should be multiplied by the estimated BMI.2Result Comment: The eGFR is calculated using the CKD-EPI formula. In most young, healthy individualsthe eGFR will be >90 mL/ min/1.73m2. The eGFR declines with age. An eGFR of 60-89 may be normal in some populations, particularly the elderly, for whom the CKD-EPI formula has not been extensively validated. Use of the eGFR is not recommended in the following populations: Individuals with unstable creatinine concentrations, including patients and those with serious co-morbid conditions. Patients with extremes in muscle mass or diet. The data above are obtained from the National Kidney Disease Education Program ( NKDEP) which additionally recommends that when the eGFR is used in patients with extremes of body mass index for purposesof drug dosing, the eGFR should be multiplied by the estimated BMI.3Result Comment: The eGFR is calculated using the CKD-EPI formula. In most young, healthy individualsthe eGFR will be >90 mL/ min/1.73m2. The eGFR declines with age. An eGFR of 60-89 may be normal in some populations, particularly the elderly, for whom the CKD-EPI formula has not been extensively validated. Use of the eGFR is not recommended in the following populations: Individuals with unstable creatinine concentrations, including patients and those with serious co-morbid conditions. Patients with extremes in muscle mass or diet. The data above are obtained from the National Kidney Disease Education Program ( NKDEP) which additionally recommends that when the eGFR is used in patients with extremes of body mass index for purposesof drug dosing, the eGFR should be multiplied by the estimated BMI.4Result Comment: B/C Ratio can't be calculated due to Creat level < 0.15PARATHYROID PROFILE Most recent to oldest 1 2 3 [Reference Range]: Ca Ion WB [1.05-1.25 mMol/L] 1.13 mMol/L 1.10 mMol/L 0.95 mMol/L (08/26/16 5:25 AM) (08/25/16 12:59 AM) *LOW* (08/24/16 4:38 AM) Ca Norm WB [1.05-1.25 mMol/L] 1.12 mMol/L 1.07 mMol/L 0.97 mMol/L (08/26/16 5:25 AM) (08/25/16 12:59 AM) *LOW* (08/24/16 4:38 AM) DRUG SCREEN Most recent to oldest [Reference Range]: 1 2 3 U Methadone Scr [Negative] Negative *NA* (08/24/16 1:06 AM) U Propoxyph Scr [Negative] Negative *NA* (08/24/16 1:06 AM) U Amph Scr [Negative] Negative *NA* (08/24/16 1:06 AM) U Heeln Scr [Negative] Negative *NA* (08/24/16 1:06 AM) U Benzodia Scr [Negative] Positive *ABN* (08/24/16 1:06 AM) U Cocaine Scr [Negative] Negative *NA* (08/24/16 1:06 AM) U Opiate Scr [Negative] Negative *NA* (08/24/16 1:06 AM) U Phencyc Scr [Negative] Negative *NA* (08/24/16 1:06 AM) U Cannab Scr [Negative] Negative *NA* (08/24/16 1:06 AM) UDS Note See Note (08/24/16 1:06 AM) TOXICOLOGY Most recent to oldest 1 2 3 [Reference Range]: Carbamaz Lvl [4.0-12.0 ug/ml] <0.5 ug/ml *LOW* (08/23/16 11:15 PM) Lamotrigine Lvl [2.0-20.0 8.2 ug/ml 1 ug/ml] *NA* (08/24/16 4:38 AM) Phenytoin Total [10.0-20.0 24.7 ug/ml <0.4 ug/ml ug/ml] *HI* *LOW* (08/25/16 12:59 AM) (08/23/16 11:15 PM) Phenytoin Free [1.00-2.00 2.20 ug/ml 2.35 ug/ml 2.26 ug/ml ug/ml] *HI* *HI* *HI* (08/26/16 9:10 AM) (08/25/16 12:59 AM) (08/24/16 2:27 PM) Valproic Acid Lvl [50-100 <3 ug/ml ug/ml] *LOW* (08/23/16 11:15 PM) Zonisamide Lvl [10.0-40.0 45.3 ug/ml 2 ug/ml] *HI* (08/24/16 4:38 AM) 1Result Comment: Detection Limit=1.0 Performed At: [facility] [address] [place] [id number] Tio Mckeon MD Ph:[phone] Comment: Detection Limit=1.0 Performed At: [facility] [address] [place] [address] [id number] Tio Mckeon MD Ph:[phone] AND STOOL Most recent to oldest 1 2 3 [Reference Range]: UA Turbidity [Clear] Marked Clear Clear *ABN* (08/24/16 1:06 AM) (08/24/16 1:06 AM) (08/24/16 9:19 AM) UA Color [Yellow] Yellow Light Yellow Yellow *NA* *NA* *NA* (08/24/16 9:19 AM) (08/24/16 1:06 AM) (08/24/16 1:06 AM) UA pH [5.0-8.0] 6.5 7.5 (08/24/16 9:19 AM) (08/24/16 1:06 AM) UA pH [5.0-8.0] 7.0 (08/24/16 1:06 AM) UA Spec Grav [<=1.030] 1.014 1.006 (08/24/16 9:19 AM) (08/24/16 1:06 AM) UA Spec Grav [<=1.030] 1.010 (08/24/16 1:06 AM) UA Glucose [Negative mg/dL] Negative mg/dL Negative mg/dL *NA* *NA* (08/24/16 9:19 AM) (08/24/16 1:06 AM) UA Glucose [Negative] Negative (08/24/16 1:06 AM) UA Blood [Negative] Moderate Negative Trace *ABN* (08/24/16 1:06 AM) *ABN* (08/24/16 9:19 AM) (08/24/16 1:06 AM) UA Ketones [Negative mg/dL] Negative mg/dL Negative mg/dL *NA* *NA* (08/24/16 9:19 AM) (08/24/16 1:06 AM) UA Ketones [Negative] Negative *NA* (08/24/16 1:06 AM) UA Protein [Negative mg/dL] 30 mg/dL 30 mg/dL 30 mg/dL *ABN* *ABN* *ABN* (08/24/16 9:19 AM) (08/24/16 1:06 AM) (08/24/16 1:06 AM) UA Urobilinogen [0.1-1.0 mg/dL] <=1.0 mg/dL <=1.0 mg/dL *NA* *NA* (08/24/16 9:19 AM) (08/24/16 1:06 AM) UA Urobilinogen [0.1-1.0 EU/dL] 0.2 EU/dL (08/24/16 1:06 AM) UA Bili [Negative] Negative Negative Negative *NA* *NA* *NA* (08/24/16 9:19 AM) (08/24/16 1:06 AM) (08/24/16 1:06 AM) UA Leuk Est [Negative] Negative Negative Negative (08/24/16 9:19 AM) (08/24/16 1:06 AM) (08/24/16 1:06 AM) UA Nitrite [Negative] Negative Negative Negative (08/24/16 9:19 AM) (08/24/16 1:06 AM) (08/24/16 1:06 AM) UA WBC [0-5 /HPF] 1 /HPF (08/24/16 1:06 AM) UA WBC [None Seen] None Seen (08/24/16 1:06 AM) UA RBC [0-2 /HPF] 10 /HPF *HI* (08/24/16 9:19 AM) UA RBC [0-2] None Seen (08/24/16 1:06 AM) UA Sq Epi None Seen None Seen *NA* *NA* (08/24/16 9:19 AM) (08/24/16 1:06 AM) UA Sq Epi [Few] None Seen (08/24/16 1:06 AM) UA Hyal Cast [0-2] 0-2 (08/24/16 1:06 AM) UA Amorph Elizabeth [None Seen /HPF] Many /HPF *ABN* (08/24/16 9:19 AM) UA Mucus [None Seen /LPF] Few /LPF *NA* (08/24/16 1:06 AM) HEMATOLOGY Most recent to oldest 1 2 3 [Reference Range]: WBC [3.7-10.4 K/CMM] 10.9 K/CMM 13.0 K/CMM 19.6 K/CMM *HI* *HI* *HI* (08/26/16 5:25 AM) (08/25/16 12:59 AM) (08/24/16 4:38 AM) RBC [4.70-6.10 M/CMM] 4.37 M/CMM 4.16 M/CMM 4.65 M/CMM *LOW* *LOW* *LOW* (08/26/16 5:25 AM) (08/25/16 12:59 AM) (08/24/16 4:38 AM) Hgb [14.0-18.0 g/dL] 13.6 g/dL 13.0 g/dL 14.1 g/dL *LOW* *LOW* (08/24/16 4:38 AM) (08/26/16 5:25 AM) (08/25/16 12:59 AM) Hct [42.0-54.0 %] 40.5 % 38.2 % 43.0 % *LOW* *LOW* (08/24/16 4:38 AM) (08/26/16 5:25 AM) (08/25/16 12:59 AM) MCV [80.0-94.0 fL] 92.7 fL 91.7 fL 92.5 fL (08/26/16 5:25 AM) (08/25/16 12:59 AM) (08/24/16 4:38 AM) MCH [27.0-31.0 pg] 31.2 pg 31.3 pg 30.3 pg *HI* *HI* (08/24/16 4:38 AM) (08/26/16 5:25 AM) (08/25/16 12:59 AM) MCHC [32.0-36.0 g/dL] 33.7 g/dL 34.1 g/dL 32.8 g/dL (08/26/16 5:25 AM) (08/25/16 12:59 AM) (08/24/16 4:38 AM) RDW [11.5-14.5 %] 13.5 % 13.6 % 13.2 % (08/26/16 5:25 AM) (08/25/16 12:59 AM) (08/24/16 4:38 AM) Platelet [133-450 K/CMM] 322 K/CMM 298 K/CMM 351 K/CMM (08/26/16 5:25 AM) (08/25/16 12:59 AM) (08/24/16 4:38 AM) MPV [7.4-10.4 fL] 7.8 fL 7.5 fL 7.4 fL (08/26/16 5:25 AM) (08/25/16 12:59 AM) (08/24/16 4:38 AM) Segs [45.0-75.0 %] 58.3 % 65.2 % 76.0 % (08/26/16 5:25 AM) (08/25/16 12:59 AM) *HI* (08/24/16 4:38 AM) Lymphocytes [20.0-40.0 %] 26.2 % 21.9 % 13.0 % (08/26/16 5:25 AM) (08/25/16 12:59 AM) *LOW* (08/24/16 4:38 AM) Monocytes [2.0-12.0 %] 11.6 % 10.3 % 10.2 % (08/26/16 5:25 AM) (08/25/16 12:59 AM) (08/24/16 4:38 AM) Eosinophils [0.0-4.0 %] 3.2 % 1.7 % 0.4 % (08/26/16 5:25 AM) (08/25/16 12:59 AM) (08/24/16 4:38 AM) Basophils [0.0-1.0 %] 0.7 % 0.9 % 0.4 % (08/26/16 5:25 AM) (08/25/16 12:59 AM) (08/24/16 4:38 AM) Segs-Bands # [1.5-8.1 K/CMM] 6.4 K/CMM 8.5 K/CMM 14.9 K/CMM (08/26/16 5:25 AM) *HI* *HI* (08/25/16 12:59 AM) (08/24/16 4:38 AM) Lymphocytes # [1.0-5.5 K/CMM] 2.9 K/CMM 2.8 K/CMM 2.6 K/CMM (08/26/16 5:25 AM) (08/25/16 12:59 AM) (08/24/16 4:38 AM) Monocytes # [0.0-0.8 K/CMM] 1.3 K/CMM 1.3 K/CMM 2.0 K/CMM *HI* *HI* *HI* (08/26/16 5:25 AM) (08/25/16 12:59 AM) (08/24/16 4:38 AM) Eosinophils # [0.0-0.5 K/CMM] 0.3 K/CMM 0.2 K/CMM 0.1 K/CMM (08/26/16 5:25 AM) (08/25/16 12:59 AM) (08/24/16 4:38 AM) Basophils # [0.0-0.2 K/CMM] 0.1 K/CMM 0.1 K/CMM 0.1 K/CMM (08/26/16 5:25 AM) (08/25/16 12:59 AM) (08/24/16 4:38 AM) BACTERIAL - SEROLOGY Most recent to oldest [Reference Range]: 1 2 3 MRSA by PCR Negative (08/24/16 4:39 AM) Immunizations No data available for this section Procedures Procedure Date Related Diagnosis Body Site Lobectomy of brain 2004 Operation Operation ORIF - Open reduction and internal fixation of fracture Social History Social History Type Response Alcohol Never Smoking Status Never smoker; Exposure to Tobacco Smoke None; Cigarette Smoking Last 365 Days No; Reg Smoking Cessation Counseling No Assessment and Plan Extracted from: Title: [facility] Author: Len Barron MD Date: 08/26/16 General Neurology Discharge Summary Patient Name: Jw Chandra Date of Admission: 08/24/16 Date of Discharge: 08/26/16 Attending of Record: Dr. Newell Admission Diagnosis: status epilepticus Chief Complaint on Admission: breakthrough seizures Initial HPI: Mr. 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 Pts mother able to break the seizure with the VNS but the patient again had GTC . He was brought to the ED by life flight and enroute was intubated for airway protection. He was loaded with 2gm of fosphenytoin in the ED. On my assessment off sedation. he was drowsy, not following commands but moving all 4 extremities and tryng to pull ET tube. At baseline he lives with his grandmom and works in [employer] once / week. Otherwise compliant with his medication. Mom PHone: [phone] Mom reports changing from ER formulation to IR formulation of the AEDs due to insurance. His epileptologist is Dr. Ferrari. Mom reports that in the past 4 weks the patient has had 2 major GTC events and one minor spell. Hospital Course: Patient improved after load of Phosphenytoin and scheduled Phenytoin. Zonegram 300BID + Lamictal 300 BID were started. He was extubated soon after admission. Overnight, Perampanel 2mg was added. rEEG wa s neagative for seizures and only showed mild encephalopathy. Patient returned to baseline and was transferred to the floor. After stablization patient was discharged home. Physical Exam: GENERAL: awake, alert, no acute distress. HEENT: normocephalic and atraumatic, moist mucous membranes. RESPIRATORY: no increased work of breathing. CARDIOVASCULAR: no murmur, equal pulses bilaterally. ABDOMEN: soft, non-tender, non-distended. NEUROLOGIC EXAM: Mental status: alert and oriented to person, time, and place. Speech/language: naming, repetition, comprehension and fluency intact, appropriately follows commands. Cranial nerves: pupils briskly reative to light bilaterally, EOMI, visual rush grossly intact, tongue/uvula/palate midline with no apparent atrophy or fibrillations, facial sensation intact, no facial asymmetry, sternocleidomastoid and trapezius muscle strength normal. Motor: Tone is normal. RUE: deltoid 5/5, triceps 5/5, biceps 5/5, wrist flexion 5/5, wrist extension 5/5. LUE: deltoid 5/5, triceps 5/5, biceps 5/5, wrist flexion 5/5, wrist extension 5/5. RLE: iliopsoas 5/5, knee extension 5/5, knee flexion 5/5, dorsiflexion 5/5, plantarflexion 5/5. LLE: iliopsoas 5/5, knee extension 5/5, knee flexion 5/5, dorsiflexion 5/5, plantarflexion 5/5. No adventitious/abnormal movements. Sensation: intact to light touch, pinprick, temperature, and vibration throughout. Coordination: no ataxia/dysmetria noted, normal [id number] and heel-to- wagoner. Reflexes: Right: triceps 2+, biceps 2+, brachioradialis 2+, patellar 2+, ankle 2+. Left: triceps 2+, biceps 2+, brachioradialis 2+, patellar 2+, ankle 2+. Plantar response: flexor. Gait: normal. DIAGNOSTIC TESTS: EEG: This is an abnormal awake and drowsy electroencephalogram secondary to the presence of background slowing, consistent with a generalized encephalopathy . No seizure activity was seen. CTH: 1. Status post left temporoparietal craniotomy with resection of the right anterior temporal all and hippocampus. 2. No acute intracranial abnormality. Discharge Condition: stable. Discharge Activity: as tolerated. Discharge Diet: regular. Discharge Medications: lamoTRIgine 100 mg oral tablet: 300 mg, 3 tab, PO, BID, 180 tab, 3 Refill(s) Ordered by: Kelli Hernandez MD - 08/25/2016 13:55 zonisamide 100 mg oral capsule: 300 mg, 3 cap, PO, Q12H, 180 cap, 3 Refill(s) Ordered by: Kelli Hernandez MD - 08/25/2016 13:55 perampanel 2 mg oral tablet: 2 mg, 1 tab, PO, Bedtime, 30 tab, 3 Refill(s) Ordered by: Kelli Hernandez MD - 08/25/2016 13:56 Discharge Instructions: See given handouts. Please see a doctor if symptoms recur. Seizure precautions: - No driving until seizure free for >3 months and cleared by a physician. Please call your local DPS/DMV department for more information. - Avoid taking baths or swimming. Patients who experience seizures have an increased risk of drowning in a bathtub/pool during a seizure. A shower is much safer. - Do not use electrical appliances near water. - Keep interior doors unlocked. Caregivers will have difficulty getting to you if you have a seizure behind a locked door. - Use caution when handling hot items/cooking. Avoid carrying pots of hot water or food. - Use caution while doing any activities where you would be a danger to yourself or others if you have a seizure. Follow-up: Follow up with PCP in 1-2 days. Will need follow-up with Dr. Ferrari 2 weeks after discharge. Please call to make an appointment. Discharge to: home. Len Quiros M.D. Child Neurology Fellow, PGY-4 Pager #: [phone] Neurology Attending The patient was seen and examined by me with the resident and I agree with the History/Exam documented. Greater than 30 min was spent in the discharge planning of this patient. Zaire Newell MD Extracted from: Title: [facility] Author: Len Barron MD Date: 08/26/16 General Neurology Progress Note Patient Name: Jw Chandra General Neurology Attending: Dr. Newell Subjective: No acute events overnight. Initial HPI: Mr. 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 Pts mother able to break the seizure with the VNS but the patient again had GTC . He was brought to the ED by life flight and enroute was intubated for airway protection. He was loaded with 2gm of fosphenytoin in the ED. On my assessment off sedation. he was drowsy, not following commands but moving all 4 extremities and tryng to pull ET tube. At baseline he lives with his grandmom and works in [employer] once / week. Otherwise compliant with his medication. Mom PHone: [phone] Mom reports changing from ER formulation to IR formulation of the AEDs due to insurance. His epileptologist is Dr. Ferrari. Mom reports that in the past 4 weks the patient has had 2 major GTC events and one minor spell. Hospital Course: Patient improved after load of Phosphenytoin and scheduled Phenytoin. Zonegram 300BID + Lamictal 300 BID were started. He was extubated soon after admission. Overnight, Perampanel 2mg was added. rEEG wa s neagative for seizures and only showed mild encephalopathy. Patient returned to baseline and was transferred to the floor. After stablization patient was discharged home. MEDICATIONS: 08/25/16 9:00 docusate 50 mg PO BID 08/24/16 8:00 heparin 5,000 unit SUB-Q Q8H 08/24/16 9:00 lamoTRIgine 300 mg PO BID 08/24/16 21:00 perampanel 2 mg PO Bedtime 08/25/16 9:00 senna 8.6 mg PO Daily 08/26/16 9:00 sertraline 50 mg PO Daily 08/24/16 9:00 zonisamide 300 mg PO Daily PHYSICAL EXAM: Vitals Tmp(F) Tmp(C) Ttype BP MAP Pulse RR SpO2 FIO2 ETCO2 08/26 07:00 ---- ---- ---- 107/69 83 84 22 98 --- --- 08/26 06:00 ---- ---- ---- 116/68 87 76 18 97 --- --- 08/26 05:12 ---- ---- ---- ----- --- --- -- 95 21% --- 08/26 05:00 97.4 36.33 oral 119/72 88 83 26 --- --- --- 08/26 04:00 ---- ---- ---- 124/75 94 86 21 95 --- --- GENERAL: awake, no acute distress. RESPIRATORY: no increased work of breathing. CARDIOVASCULAR: RRR, equal pulses bilaterally. ABDOMEN: soft, non-distended. NEUROLOGIC EXAM: Mental status: alert and oriented to person, time, and place. Speech/language: naming, repetition, comprehension and fluency intact, appropriately follows commands. Cranial nerves: PERRL, visual rush grossly intact, facial sensation intact, no facial asymmetry. Tone: normal. Motor: 5/5 throughout. RUE: deltoid 5/5, triceps 5/5, biceps 5/5, wrist flexion 5/5, wrist extension 5/5. LUE: deltoid 5/5, triceps 5/5, biceps 5/5, wrist flexion 5/5, wrist extension 5/5. RLE: iliopsoas 5/5, knee extension 5/5, knee flexion 5/5, dorsiflexion 5/5, plantarflexion 5/5. LLE: iliopsoas 5/5, knee extension 5/5, knee flexion 5/5, dorsiflexion 5/5, plantarflexion 5/5. Sensation: grossly intact throughout. Coordination: no ataxia/dysmetria noted, normal [id number] and heel-to- wagoner. Reflexes: Right: triceps 2+, biceps 2+, brachioradialis 2+, patellar 2+, ankle 2+. Left: triceps 2+, biceps 2+, brachioradialis 2+, patellar 2+, ankle 2+. 2+ and symmetric throughout. Plantar response: flexor. Gait: normal. LABS: Labs (Last four charted values) WBC H 10.9 (AUG 26) H 13.0 (AUG 25) H 19.6 (AUG 24) H 21.5 ( AUG 23) Hgb L 13.6 (AUG 26) L 13.0 (AUG 25) 14.1 (AUG 24) 14.4 (AUG 23 ) Hct L 40.5 (AUG 26) L 38.2 (AUG 25) 43.0 (AUG 24) 43.0 (AUG 23 ) Plt 322 (AUG 26) 298 (AUG 25) 351 (AUG 24) 393 (AUG 23) Na 140 (AUG 26) 140 (AUG 25) 141 (AUG 24) 140 (AUG 24) K L 3.3 (AUG 26) 3.6 (AUG 25) 3.6 (AUG 24) L 3.1 (AUG 24) CO2 L 19 (AUG 26) 24 (AUG 25) L 23 (AUG 24) L 21 (AUG 24) Cl 108 (AUG 26) 107 (AUG 25) 108 (AUG 24) 107 (AUG 24) Cr 0.88 (AUG 26) 0.97 (AUG 25) 1.07 (AUG 24) <0.15 (AUG 24) BUN 7 (AUG 26) L 6 (AUG 25) 8 (AUG 24) 9 (AUG 24) Glucose Random 74 (AUG 26) 82 (AUG 25) 94 (AUG 24) L 66 (AUG 24) Mg 2.0 (AUG 26) 1.9 (AUG 25) 2.3 (AUG 24) H 2.5 (AUG 23) Phos 2.6 (AUG 26) 2.9 (AUG 25) 3.9 (AUG 24) 3.1 (AUG 23) Ca 8.8 (AUG 26) 8.9 (AUG 25) 8.7 (AUG 24) 8.7 (AUG 24) DIAGNOSTIC TESTS: EEG: This is an abnormal awake and drowsy electroencephalogram secondary to the presence of background slowing, consistent with a generalized encephalopathy . No seizure activity was seen. CTH: 1. Status post left temporoparietal craniotomy with resection of the right anterior temporal all and hippocampus. 2. No acute intracranial abnormality. ASSESSMENT: 26-year-old male with ADHD, CPS s/p right temporal lobectomy and VNS who presented in status epilepticus, now at baseline. Required addition of AED's during this admission. PLAN: # Complex partial seizures with secondary generalization - s/p load with Fosphenytoin. - Continue Phenytoin 100 mg TID. - Continue Zonegran 300 mg BID and Lamictal 300 mg BID. # Depression - Continue home Sertraline. # Respiratory failure - Now extubated. DVT prophylaxis: Heparin SQ. GI prophylaxis: Docusate, Senna. Diet: regular. Code status: Full Code. # Dispo: home today. Len Quiros M.D. Child Neurology Fellow, PGY-4 Pager #: [phone] Addendum by Zaire Newell MD on 08/27/2016 15:49 Neurology Attending The patient was seen and examined by me with the resident and I agree with the History/Exam documented. Zaire Newell MD Extracted from: Title: [facility] Admission Author: Rk Patel MD Date: 08/24/16 H&P General Neurology Admission Note Requesting Physician/Service: ED Reason for Consult:Status Epilepticus HISTORY OF PRESENT ILLNESS: Mr. 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 Pts mother able to break the seizure with the VNS but the patient again had GTC . He was brought to the ED by life flight and enroute was intubated for airway protection. He was loaded with 2gm of fosphenytoin in the ED. On my assessment off sedation. he was drowsy, not following commands but moving all 4 extremities and tryng to pull ET tube. At baseline he lives with his grandmom and works in [employer] once / week. Otherwise compliant with his medication. Mom PHone: [phone] Mom reports changing from ER formulation to IR formulation of the AEDs due to insurance. His epileptologist is Dr. Ferrari. Mom reports that in the past 4 weks the patient has had 2 major GTC events and one minor spell. Review of Systems: GEN: No fever, chills, night sweats, weight loss, fatigue EYES: No blurred vision, double vision, eye pain ENT: No decreased hearing, nose bleeding, nasal congestion, sore throat CARDIO: No chest pain, palpitation, orthopnea, dyspnea on exertion PULM: No shortness of breath, cough, wheezing, asthma, sputum, hemoptysis GI: No nausea, vomiting, diarrhea, constipation, Abdominal Pain : No frequency, burning, hematuria, nocturia, hesitancy NEURO: As per HPI ENDO: No weight loss, weight gain, heat intolerance, cold intolerance SKIN: No rash, lesion, itching MUSC: No joint pain, muscle pain, arthritis, back pain Past Medical History: CPS, ADHD Past Surgical History: Rt Temp lobectomy, VNS Family History: No family h/o Seizures Social History: He lives with grand mom, no smoking/etOH Medications: Lamictal 300 mg bid, Zonisamide 300 mg bid. Allergies: NOne Physical Exam: Vitals Tmp(F) Pulse BP RR SpO2 FIO2 08/24 06:00 ---- 82 114/72 12 100 --- 08/24 05:55 ---- 82 113/69 12 --- --- 08/24 05:00 ---- 86 113/66 17 99 --- 08/24 04:00 ---- 85 119/76 12 100 --- 08 03:46 ---- 85 ----- 12 100 --- 24 Hr Tmax: 98.8F (37.11c) at 08/24 02:30 Vital Signs are the last 5 in the past 48 hours. APPEARANCE - Active, well developed, well nourished HEAD - Normocephalic and atraumatic EYES - Pupil equal and reactive to light PHARYNX - Mouth pink, mucous membranes moist. No tonsillar enlargement NECK - Supple, thyroid non-palpable, no significant adenopathy LUNGS - Clear to auscultation, no rales or rhonchi CV - Rate rhythm regular, no murmur, equal pulses bilaterally. ABDOMEN - Soft, non tender, with normal bowel sounds. No hepatosplenomegaly SPINE - Straight, no defects, no scoliosis SKIN: Clear, no rashes NEUROLOGY: Drowsy, intubated, not tracking/following commands Speech: Intubated target protection specialist: pupil 3-4 mm reactive, midline gaze, moving eyes in all direction , face symmetric. Motor: Tone- Normal Strength- moving all 4 extremities. Sensory: withdraws to painful stimuli. Cerebellar signs:not tested Romberg: not tested Gait: deferred. THE FOLLOWING WERE PRESENT ON ADMISSION: - POSTAL MAIL CARRIER - Seizures, Encephalopathy - Respiratory - Respiratory failure requiring intubation - Cardiovascular - None - Infectious - None - GI - None - Renal - None - Heme- None - Cancer - None - Trauma - None - Palliative care - Full code Labs: Labs (Last four charted values) WBC H 19.6 (AUG 24) H 21.5 (AUG 23) Hgb 14.1 (AUG 24) 14.4 (AUG 23) Hct 43.0 (AUG 24) 43.0 (AUG 23) Plt 351 (AUG 24) 393 (AUG 23) Na 140 (AUG 24) 136 (AUG 23) K L 3.1 (AUG 24) L 3.1 (AUG 23) CO2 L 21 (AUG 24) L 19 (AUG 23) Cl 107 (AUG 24) 102 (AUG 23) Cr <0.15 (AUG 24) 1.30 (AUG 23) BUN 9 (AUG 24) 9 (AUG 23) Glucose Random L 66 (AUG 24) H 112 (AUG 23) Mg 2.3 (AUG 24) H 2.5 (AUG 23) Phos 3.9 (AUG 24) 3.1 (AUG 23) Ca 8.7 (AUG 24) 9.5 (AUG 23) Diagnostic Tests: None Assessment: Mr. 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 Plan: # Complex partial Seizures with secondary generalization - Admit to the NTICU under general Neurology - s/p Load with fospheny 2g - continue Phenytoin 100mg TID - Continue Zonegram 300BID + Lamictal 300 BID - rEEG - MRI w/wo contrast - Metabolic and infectious w/u - CXR, UA, UDS, Ammonia, LFT - Consider portable cont EEG for medication titration # Depression -at home on Sertraline -now holding. can resume at time of discharge. #Resp Failure - Vent wean per NTICU Dispo: Pending clinical improvement The case was discussed with the propulsion generator repairer General Neurology attending. Rk Patel PGY-3, Neurology [facility] Pager # [phone] Post Rounds Addendum: Discussed case with Dr. Ferrari, patient was recently under relatively well control until insurance would no longer cover Lamictal ER and he was switched to IR formualtion. Since then he has had multiple breakthrough seizures along with two hospitalizations requiring intubation. He has been tried on many AEDs as wel as had implanted VNS and temporal lobectomy in 2004. Plan: 1. Plan for extubation as per ICU team. 2. No need for EEG as well as MRI brain as patient has history of refractory epilepsy. 3. Continue Zonegram 300 mg BID and Lamictal 300 mg BID. 4. Addition of Fycompa 2 mg q HS after discussion with family. However, it appears not be in formulary so while in hospital continue Phenyton 50 mg BID -> we will order phenytoin level prior to next dose and if more than 3 then hold level and repeat in the AM. Berry Salter Neurology, PGY-3 Teaching Physician Attestation: I have seen and examined the patient with Dr. Salter on 08/24/16 I have reviewed all the clinical information, laboratory investigations, and imaging data. I agree with the examination, assessment, and plan as detailed below. Vera Rodriguez MD Associate Spa Director of Neurology
--- OUTSIDE RECORDS SUMMARY | 2018-08-02 16:30 | XMS REPORT | Summary of Care ---
:1990 Author Organization [facility] Address [address] [place] [id number]- Encounter HQ Papi_[email or web address](FIN) [id number] Date(s): 08/06/16 - 08/08/16 [facility] [address] [place] [address] Professional Services provided by [facility] [place] [address]- Discharge Disposition: Home or Self Care Attending Physician: Logan Cotton MD Admitting Physician: Shahid Ordonez MD Vital Signs Most recent to oldest 1 2 3 [Reference Range]: Height 175.26 cm (08/06/16 9:41 PM) Temperature Oral [96.4-99.1 98.3 DegF 97.6 DegF 99.1 DegF DegF] (08/08/16 3:21 AM) (08/07/16 11:25 PM) (08/07/16 8:49 PM) Blood Pressure [90-140/60-90 101/56 mmHg 126/78 mmHg 126/87 mmHg mmHg] (08/08/16 9:00 AM) (08/08/16 8:00 AM) (08/08/16 7:54 AM) Respiratory Rate [14-20 BRMIN] 20 BRMIN 32 BRMIN 34 BRMIN (08/08/16 9:00 AM) *HI* *HI* (08/08/16 8:00 AM) (08/08/16 7:54 AM) Peripheral Pulse Rate [60-100 97 bpm bpm] (08/06/16 5:00 PM) Weight 73.381 kg 72.727 kg (08/07/16 9:00 AM) (08/06/16 9:41 PM) Body Mass Index 23.68 m2 (08/06/16 9:41 PM) Problem List Condition Effective Dates Status Health Status Informant Depression(Confirmed) Active Hematoma(Confirmed) Active Seizure disorder(Confirmed) Active Varicocele(Confirmed) Resolved Viral encephalitis(Confirmed) 2000 Resolved Allergies, Adverse Reactions, Alerts Substance Reaction Severity Status NKDA Active Medications calcium carbonate 500 mg (200 mg elemental calcium) oral tablet 1,000 mg, 2 tab, Route: PO, Drug form: CHEWTAB, PRN, Dosing Weight 72.727, kg, PRN Abnormal Lab Result, FOR ICU USE ONLY, Start date: 08/06/16 17:27:00 CDT, Duration: 30 day, Stop date: 09/05/16 17:26:00 CDT Notes: (Same As: Edwiges)Calcium Carbonate 500 he=172 mg elemental calcium Dose=_ mg calcium carbonate ( mg elemental calcium) Start Date: 08/06/16 Stop Date: 08/08/16 Status: Discontinuedcalcium carbonate 500 mg (200 mg elemental calcium) oral tablet 500 mg, 1 tab, Route: PO, Drug form: CHEWTAB, PRN, Dosing Weight 72.727, kg, PRN Abnormal Lab Result, FOR ICU USE ONLY, Start date: 08/06/16 17:27:00 CDT, Duration: 30 day, Stop date: 09/05/16 17:26:00CDT Notes: (Same As: Edwiges)Calcium Carbonate 500 ve=442 mg elemental calcium Dose=_ mg calcium carbonate ( mg elemental calcium) Start Date: 08/06/16 Stop Date: 08/08/16 Status: Discontinuedcalcium gluconate + sodium chloride 0.9% INJ 50 mL 1 gm, 10 mL, Route: IVPB, PRN, Dosing Weight 72.727, kg, PRN Abnormal Lab Result , Start date: 08/06/16 17:27:00 CDT, Duration: 30 day, Stop date: 09/05/16 17:26 :00 CDT, FOR ICU USE ONLY Notes: WASTE: F/P - Sink; E - Municipal Trash Bin Start Date: 08/06/16 Stop Date: 08/08/16 Status: DiscontinuedDextrose 50% Syringe 25 gm, 50 mL, Route: IVP, Drug Form: INJ, Dosing Weight 72.727, kg, PRN, PRN Blood Glucose Results, Start date: 08/06/16 17:28:00 CDT, Duration: 30 day, Stop date: 09/05/16 17:27:00 CDT Start Date: 08/06/16 Stop Date: 08/08/16 Status: DiscontinuedDextrose 50% Syringe 12.5 gm, 25 mL, Route: IVP, Drug Form: INJ, Dosing Weight 72.727, kg, PRN, PRN Blood Glucose Results, Start date: 08/06/16 17:28:00 CDT, Duration: 30 day, Stop date: 09/05/16 17:27:00 CDT Start Date: 08/06/16 Stop Date: 08/08/16 Status: Discontinueddocusate 100 mg, 10 mL, Route: PO, Drug form: LIQ, Daily, Dosing Weight 72.727, kg, Start date: 08/07/16 9:00:00 CDT, Duration: 30 day, Stop date: 09/05/16 9:00:00 CDT Notes: (Same as: Colace) Start Date: 08/07/16 Stop Date: 08/08/16 Status: Discontinuedglucagon 1 mg, Route: IM, Drug form: PDR/INJ, PRN, Dosing Weight 72.727, kg, PRN Blood Glucose Results, Startdate: 08/06/16 17:28:00 CDT, Duration: 30 day, Stop date: 09/05/16 17:27:00 CDT Start Date: 08/06/16 Stop Date: 08/08/16 Status: Discontinuedheparin 5,000 unit, 1 mL, Route: SUB-Q, Drug form: INJ, Q8H, Dosing Weight 72.727, kg, Start date: 08/07/16 0:00:00 CDT, Duration: 30 day, Stop date: 09/05/16 16:00: 00 CDT Notes: porcine heparin Start Date: 08/07/16 Stop Date: 08/08/16 Status: DiscontinuedInsulin regular 2 unit, 0.02 mL, Route: SUB-Q, Drug form: SOLN, TID-Before Meals, Dosing Weight 72.727, kg, PRN Blood Glucose Results, Start date: 08/06/16 17:28:00 CDT, Duration: 30 day, Stop date: 09/05/16 17:27:00 CDT Notes: (Same as: Humulin R) Roll in palms of hands gently; Do not shake vigorously. "single patientuse only"(Restricted to patients requiring a dose > 60 units)WASTE: F/P - Black; E - Municipal Trash Bin Stable for 28 days at room temperatureExpires in days from Date Start Date: 08/06/16 Stop Date: 08/08/16 Status: DiscontinuedInsulin regular 10 unit, 0.1 mL, Route: SUB-Q, Drug form: SOLN, TID-Before Meals, Dosing Weight 72.727, kg, PRN Blood Glucose Results, Start date: 08/06/16 17:28:00 CDT, Duration: 30 day, Stop date: 09/05/16 17:27:00 CDT Notes: (Same as: Humulin R) Roll in palms of hands gently; Do not shake vigorously. "single patientuse only"(Restricted to patients requiring a dose > 60 units)WASTE: F/P - Black; E - Municipal Trash Bin Stable for 28 days at room temperatureExpires in days from Date Start Date: 08/06/16 Stop Date: 08/08/16 Status: DiscontinuedInsulin regular 8 unit, 0.08 mL, Route: SUB-Q, Drug form: SOLN, TID-Before Meals, Dosing Weight 72.727, kg, PRN Blood Glucose Results, Start date: 08/06/16 17:28:00 CDT, Duration: 30 day, Stop date: 09/05/16 17:27:00 CDT Notes: (Same as: Humulin R) Roll in palms of hands gently; Do not shake vigorously. "single patientuse only"(Restricted to patients requiring a dose > 60 units)WASTE: F/P - Black; E - Municipal Trash Bin Stable for 28 days at room temperatureExpires in days from Date Start Date: 08/06/16 Stop Date: 08/08/16 Status: DiscontinuedInsulin regular 6 unit, 0.06 mL, Route: SUB-Q, Drug form: SOLN, TID-Before Meals, Dosing Weight 72.727, kg, PRN Blood Glucose Results, Start date: 08/06/16 17:28:00 CDT, Duration: 30 day, Stop date: 09/05/16 17:27:00 CDT Notes: (Same as: Humulin R) Roll in palms of hands gently; Do not shake vigorously. "single patientuse only"(Restricted to patients requiring a dose > 60 units)WASTE: F/P - Black; E - Municipal Trash Bin Stable for 28 days at room temperatureExpires in days from Date Start Date: 08/06/16 Stop Date: 08/08/16 Status: DiscontinuedInsulin regular 4 unit, 0.04 mL, Route: SUB-Q, Drug form: SOLN, TID-Before Meals, Dosing Weight 72.727, kg, PRN Blood Glucose Results, Start date: 08/06/16 17:28:00 CDT, Duration: 30 day, Stop date: 09/05/16 17:27:00 CDT Notes: (Same as: Humulin R) Roll in palms of hands gently; Do not shake vigorously. "single patientuse only"(Restricted to patients requiring a dose > 60 units)WASTE: F/P - Black; E - Municipal Trash Bin Stable for 28 days at room temperatureExpires in days from Date Start Date: 08/06/16 Stop Date: 08/08/16 Status: DiscontinuedKeppra + sodium chloride 0.9% 100 mL INJ (for IV set) 100 mL 1,000 mg, Route: IVPB, Q12H, Dosing Weight 72.727, kg, Start date: 08/06/16 21: 00:00 CDT, Duration: 30 day, Stop date: 09/05/16 9:00:00 CDT Notes: Same as KeppraMix with 100 mL NS, LR or D5W MEDICATION WASTE Product Size: 500 mgProduct Wasted: ___ mg Start Date: 08/06/16 Stop Date: 08/07/16 Status: DiscontinuedLaMICtal 300 mg, 3 tab, Route: PO, Drug form: TAB, Q12H, Dosing Weight 72.727, kg, Start date: 08/07/16 9:00:00 CDT, Duration: 30 day, Stop date: 09/05/16 21:00:00 CDT Notes: (Same as:LaMICtal) Start Date: 08/07/16 Stop Date: 08/08/16 Status: DiscontinuedLaMICtal 100 mg oral tablet 3 tablets, PO, BID, # 60 tab, 0 Refill(s) Start Date: 08/06/16 Status: Orderedmagnesium oxide 800 mg, 2 tab, Route: PO, Drug form: TAB, PRN, Dosing Weight 72.727, kg, PRN Abnormal Lab Result, FOR ICU USE ONLY, Start date: 08/06/16 17:27:00 CDT, Duration: 30 day, Stop date: 09/05/16 17:26:00 CDT Notes: (Same as: Mag-Ox 400)Magnesium oxide [id number] elemental magnesiumDose= ____mg magnesium oxide (___mg elemental magnesium) Start Date: 08/06/16 Stop Date: 08/08/16 Status: Discontinuedmagnesium sulfate 2 gm, 50 mL, Route: IVPB, Drug form: INJ, PRN, Dosing Weight 72.727, kg, PRN Abnormal Lab Result, Start date: 08/06/16 17:27:00 CDT, Duration: 30 day, Stop date: 09/05/16 17:26:00 CDT, FOR ICU USE ONLY Notes: WASTE: F/P - Sink; E - Municipal Trash Bin Start Date: 08/06/16 Stop Date: 08/08/16 Status: DiscontinuedMiraLax 17 gm, 1 pkt, Route: PO, Drug form: PWDR, Daily, Dosing Weight 72.727, kg, Start date: 08/07/16 9:00:00 CDT, Duration: 30 day, Stop date: 09/05/16 9:00:00 CDT Notes: Dissolve in 8 oz of water or juice.(Same as: Miralax) Start Date: 08/07/16 Stop Date: 08/08/16 Status: Discontinuedpotassium chloride 10 mEq, 50 mL, Route: IVPB, Drug form: INJ, PRN, Dosing Weight 72.727, kg, PRN Abnormal Lab Result, Via peripheral line, Start date: 08/06/16 17:27:00 CDT, Duration: 30 day, Stop date: 09/05/16 17:26:00 CDT, FOR ICU USE ONLY Notes: (Same as: KCL) Infuse over 2 hours. Start Date: 08/06/16 Stop Date: 08/08/16 Status: Discontinuedpotassium chloride 20 mEq, 1 tab, Route: PO, Drug form: ERTAB, PRN, Dosing Weight 72.727, kg, PRN Abnormal Lab Result, Start date: 08/06/16 17:27:00 CDT, Duration: 30 day, Stop date: 09/05/16 17:26:00 CDT, FOR ICU USE ONLY Notes: (Same as: K-Dur 20)"Do Not Crush" With food and full glass of water Start Date: 08/06/16 Stop Date: 08/08/16 Status: Discontinuedpotassium chloride 20 mEq, 15 mL, Route: NJ, Drug form: LIQ, PRN, Dosing Weight 72.727, kg, PRN Abnormal Lab Result, Start date: 08/06/16 17:27:00 CDT, Duration: 30 day, Stop date: 09/05/16 17:26:00 CDT, FOR ICU USE ONLY Notes: (Same as: Potassium Chloride) Start Date: 08/06/16 Stop Date: 08/08/16 Status: Discontinuedpotassium chloride 20 mEq, 100 mL, Route: IVPB, Drug form: INJ, PRN, Dosing Weight 72.727, kg, PRN Abnormal Lab Result,Via central line, Start date: 08/06/16 17:27:00 CDT, Duration: 30 day, Stop date: 09/05/16 17:26:00 CDT, FOR ICU USE ONLY Notes: (Same as: KCL) Infuse no faster than 10 mEq/hr if given peripherally. Start Date: 08/06/16 Stop Date: 08/08/16 Status: Discontinuedpotassium chloride 20 mEq/15 mL oral liquid 40 mEq, 30 mL, Route: PO, Drug form: LIQ, ONCE, Dosing Weight 73.381, kg, Start date: 08/08/16 6:04:00 CDT, Stop date: 08/08/16 6:04:00 CDT Notes: (Same as: Potassium Chloride) Start Date: 08/08/16 Stop Date: 08/08/16 Status: Completedpotassium phosphate + sodium chloride 0.9% INJ 250 mL 30 mmol, 10 mL, Route: IVPB, PRN, Dosing Weight 72.727, kg, PRN Abnormal Lab Result, Start date: 08/06/16 17:27:00 CDT, Duration: 30 day, Stop date: 17:26:00 CDT, FOR ICU USE ONLY Notes: (Same as: K Phosphate.) 1 mMol phoshate has 1.47 mEq potassium Infuse over 4 hours Start Date: 08/06/16 Stop Date: 08/08/16 Status: Discontinuedpotassium phosphate + sodium chloride 0.9% INJ 250 mL 45 mmol, 15 mL, Route: IVPB, PRN, Dosing Weight 72.727, kg, PRN Abnormal Lab Result, Start date: 08/06/16 17:27:00 CDT, Duration: 30 day, Stop date: 17:26:00 CDT, FOR ICU USE ONLY Notes: (Same as: K Phosphate.) 1 mMol phoshate has 1.47 mEq potassium Infuse over 4 hours Start Date: 08/06/16 Stop Date: 08/08/16 Status: Discontinuedpotassium phosphate + sodium chloride 0.9% INJ 250 mL 15 mmol, 5 mL, Route: IVPB, PRN, Dosing Weight 72.727, kg, PRN Abnormal Lab Result, Start date: 08/06/16 17:27:00 CDT, Duration: 30 day, Stop date: 17:26:00 CDT, FOR ICU USE ONLY Notes: (Same as: K Phosphate.) 1 mMol phoshate has 1.47 mEq potassium Infuse over 4 hours Start Date: 08/06/16 Stop Date: 08/08/16 Status: Discontinuedpotassium phosphate-sodium phosphate 250 mg-280 mg-160 mg oral powder for reconstitution 2 pkt, Route: PO, Drug Form: PDR/REC, Dosing Weight 72.727, kg, PRN, PRN Abnormal Lab Result, FOR ICU USE ONLY, Start date: 08/06/16 17:27:00 CDT, Duration: 30 day, Stop date: 09/05/16 17:26:00 CDT Notes: (Same as: Lalitha) Each 1.5 gm pkt has 250mg phosphorous. Mix w/2.5oz water and stir. Start Date: 08/06/16 Stop Date: 08/08/16 Status: Discontinuedsertraline 50 mg oral tablet 50 mg=1 tab, PO, Daily, # 30 tab, 0 Refill(s) Start Date: 08/06/16 Status: Orderedsodium chloride 0.9% 1000 ml INJ 1,000 mL 1,000 mL, Rate: 75 ml/hr, Infuse over: 13.3 hr, Route: IV, Dosing Weight 72.727 kg, Total Volume: 1,000, Start date: 08/06/16 21:42:00 CDT, Duration: 30 day, Stop date: 09/05/16 21:41:00 CDT Start Date: 08/06/16 Stop Date: 08/07/16 Status: Discontinuedsodium phosphate + sodium chloride 0.9% INJ 250 mL 30 mmol, 10 mL, Route: IVPB, PRN, Dosing Weight 72.727, kg, PRN Abnormal Lab Result, Start date: 08/06/16 17:27:00 CDT, Duration: 30 day, Stop date: 17:26:00 CDT, FOR ICU USE ONLY Start Date: 08/06/16 Stop Date: 08/08/16 Status: Discontinuedsodium phosphate + sodium chloride 0.9% INJ 250 mL 15 mmol, 5 mL, Route: IVPB, PRN, Dosing Weight 72.727, kg, PRN Abnormal Lab Result, Start date: 08/06/16 17:27:00 CDT, Duration: 30 day, Stop date: 17:26:00 CDT, FOR ICU USE ONLY Start Date: 08/06/16 Stop Date: 08/08/16 Status: Discontinuedsodium phosphate + sodium chloride 0.9% INJ 250 mL 45 mmol, 15 mL, Route: IVPB, PRN, Dosing Weight 72.727, kg, PRN Abnormal Lab Result, Start date: 08/06/16 17:27:00 CDT, Duration: 30 day, Stop date: 17:26:00 CDT, FOR ICU USE ONLY Start Date: 08/06/16 Stop Date: 08/08/16 Status: DiscontinuedTylenol 650 mg, 2 tab, Route: PO, Drug form: TAB, ONCE, Dosing Weight 73.381, kg, PRN For Temp > 100.4 F, Start date: 08/08/16 7:51:00 CDT Notes: Do not exceed 4 gm/day. (Same as: Tylenol) Start Date: 08/08/16 Stop Date: 08/08/16 Status: Completedzonisamide 300 mg, 3 cap, Route: PO, Drug form: CAP, Q12H, Dosing Weight 72.727, kg, Start date: 08/07/16 9:00:00 CDT, Duration: 30 day, Stop date: 09/05/16 21:00:00 CDT Notes: Contraindicated in patients with hypersensitivity to sulfonamides.(Same As: Zonegran) Start Date: 08/07/16 Stop Date: 08/08/16 Status: Discontinuedzonisamide 100 mg oral capsule 300 mg=3 cap, PO, Q12H, 0 Refill(s) Start Date: 08/08/16 Status: Orderedzonisamide 100 mg oral capsule 300 mg=3 cap, PO, BID, # 270 cap, 0 Refill(s) Start Date: 08/06/16 Stop Date: 08/08/16 Status: Discontinued Results ELECTROLYTES Most recent to oldest 1 2 3 [Reference Range]: Sodium Lvl [135-145 mEq/L] 141 mEq/L 142 mEq/L 141 mEq/L (08/07/16 1:10 PM) (08/07/16 2:32 AM) (08/06/16 5:47 PM) Potassium Lvl [3.5-5.1 3.3 mEq/L 3.1 mEq/L 3.0 mEq/L 1 mEq/L] *LOW* *LOW* *CRIT* (08/08/16 3:26 AM) (08/07/16 1:10 PM) (08/07/16 2:32 AM) Chloride Lvl [95-109 mEq/L] 110 mEq/L 111 mEq/L 110 mEq/L *HI* *HI* *HI* (08/07/16 1:10 PM) (08/07/16 2:32 AM) (08/06/16 5:47 PM) CO2 [24-32 mEq/L] 20 mEq/L 17 mEq/L 20 mEq/L *LOW* *LOW* *LOW* (08/07/16 1:10 PM) (08/07/16 2:32 AM) (08/06/16 5:47 PM) AGAP [10.0-20.0 mEq/L] 14.1 mEq/L 17.0 mEq/L 14.8 mEq/L (08/07/16 1:10 PM) (08/07/16 2:32 AM) (08/06/16 5:47 PM) 1Result Comment: Critical Result(s) called to Agustin Iqbal at 08/07/2016 04: 51 byJw. Read back OK.CHEM PANEL Most recent to oldest 1 2 3 [Reference Range]: Creatinine Lvl [0.50-1.40 0.68 mg/dL 0.89 mg/dL 1.07 mg/dL mg/dL] (08/07/16 1:10 PM) (08/07/16 2:32 AM) (08/06/16 5:47 PM) eGFR 131 mL/min/1.73m2 1 117 mL/min/1.73m2 2 95 mL/min/1.73m2 3 *NA* *NA* *NA* (08/07/16 1:10 PM) (08/07/16 2:32 AM) (08/06/16 5:47 PM) BUN [7-22 mg/dL] 4 mg/dL 7 mg/dL 7 mg/dL *LOW* (08/07/16 2:32 AM) (08/06/16 5:47 PM) (08/07/16 1:10 PM) Glucose Lvl [70-99 mg/dL] 70 mg/dL 53 mg/dL 77 mg/dL (08/07/16 1:10 PM) *LOW* (08/06/16 5:47 PM) (08/07/16 2:32 AM) Calcium Lvl [8.5-10.5 7.9 mg/dL 8.4 mg/dL 7.3 mg/dL mg/dL] *LOW* *LOW* *LOW* (08/07/16 1:10 PM) (08/07/16 2:32 AM) (08/06/16 5:47 PM) Phosphorus [2.5-4.5 mg/dL] 2.5 mg/dL 2.4 mg/dL 2.4 mg/dL (08/07/16 1:10 PM) *LOW* *LOW* (08/07/16 2:32 AM) (08/06/16 5:47 PM) Magnesium Lvl [1.8-2.4 2.0 mg/dL 2.3 mg/dL 1.9 mg/dL mg/dL] (08/07/16 1:10 PM) (08/07/16 2:32 AM) (08/06/16 5:47 PM) 1Result Comment: The eGFR is calculated using [...] eGFR should be multiplied by the estimated BMI.PARATHYROID PROFILE Most recent to oldest 1 2 3 [Reference Range]: Ca Ion WB [1.05-1.25 mMol/L] 1.09 mMol/L 1.07 mMol/L 1.04 mMol/L (08/07/16 1:10 PM) (08/07/16 2:32 AM) *LOW* (08/06/16 5:47 PM) Ca Norm WB [1.05-1.25 1.06 mMol/L 1.00 mMol/L 0.99 mMol/L mMol/L] (08/07/16 1:10 PM) *LOW* *LOW* (08/07/16 2:32 AM) (08/06/16 5:47 PM) DRUG SCREEN Most recent to oldest [Reference Range]: 1 2 3 U Amph Scr [Negative] Negative *NA* (08/07/16 2:45 AM) U Helen Scr [Negative] Negative *NA* (08/07/16 2:45 AM) U Benzodia Scr [Negative] Positive *ABN* (08/07/16 2:45 AM) U Cocaine Scr [Negative] Negative *NA* (08/07/16 2:45 AM) U Opiate Scr [Negative] Negative *NA* (08/07/16 2:45 AM) U Phencyc Scr [Negative] Negative *NA* (08/07/16 2:45 AM) U Cannab Scr [Negative] Positive *ABN* (08/07/16 2:45 AM) UDS Note See Note (08/07/16 2:45 AM) TOXICOLOGY Most recent to oldest [Reference Range]: 1 2 3 Phenytoin Total [10.0-20.0 ug/ml] 10.7 ug/ml (08/07/16 4:01 PM) Phenytoin Free [1.00-2.00 ug/ml] 0.87 ug/ml *LOW* (08/07/16 4:01 PM) URINE AND STOOL Most recent to oldest [Reference Range]: 1 2 3 UA Turbidity [Clear] Clear (08/07/16 2:45 AM) UA Color [Yellow] Yellow *NA* (08/07/16 2:45 AM) UA pH [5.0-8.0] 6.5 (08/07/16 2:45 AM) UA Spec Grav [<=1.030] 1.009 (08/07/16 2:45 AM) UA Glucose [Negative mg/dL] Negative mg/dL *NA* (08/07/16 2:45 AM) UA Blood [Negative] Negative (08/07/16 2:45 AM) UA Ketones [Negative mg/dL] 80 mg/dL *ABN* (08/07/16 2:45 AM) UA Protein [Negative mg/dL] Negative mg/dL (08/07/16 2:45 AM) UA Urobilinogen [0.1-1.0 mg/dL] <=1.0 mg/dL *NA* (08/07/16 2:45 AM) UA Bili [Negative] Negative *NA* (08/07/16 2:45 AM) UA Leuk Est [Negative] Negative (08/07/16 2:45 AM) UA Nitrite [Negative] Negative (08/07/16 2:45 AM) UA WBC [0-5 /HPF] 1 /HPF (08/07/16 2:45 AM) UA Sq Epi None Seen *NA* (08/07/16 2:45 AM) UA Mucus [None Seen /LPF] Few /LPF *NA* (08/07/16 2:45 AM) HEMATOLOGY Most recent to oldest 1 2 3 [Reference Range]: WBC [3.7-10.4 K/CMM] 13.5 K/CMM 23.1 K/CMM 26.3 K/CMM *HI* *HI* *HI* (08/08/16 3:26 AM) (08/07/16 2:32 AM) (08/06/16 5:47 PM) RBC [4.70-6.10 M/CMM] 4.45 M/CMM 4.20 M/CMM 4.25 M/CMM *LOW* *LOW* *LOW* (08/08/16 3:26 AM) (08/07/16 2:32 AM) (08/06/16 5:47 PM) Hgb [14.0-18.0 g/dL] 13.3 g/dL 13.2 g/dL 13.1 g/dL *LOW* *LOW* *LOW* (08/08/16 3:26 AM) (08/07/16 2:32 AM) (08/06/16 5:47 PM) Hct [42.0-54.0 %] 41.1 % 39.1 % 39.5 % *LOW* *LOW* *LOW* (08/08/16 3:26 AM) (08/07/16 2:32 AM) (08/06/16 5:47 PM) MCV [80.0-94.0 fL] 92.3 fL 93.1 fL 92.8 fL (08/08/16 3:26 AM) (08/07/16 2:32 AM) (08/06/16 5:47 PM) MCH [27.0-31.0 pg] 30.0 pg 31.4 pg 30.9 pg (08/08/16 3:26 AM) *HI* (08/06/16 5:47 PM) (08/07/16 2:32 AM) MCHC [32.0-36.0 g/dL] 32.5 g/dL 33.8 g/dL 33.2 g/dL (08/08/16 3:26 AM) (08/07/16 2:32 AM) (08/06/16 5:47 PM) RDW [11.5-14.5 %] 13.7 % 13.5 % 13.5 % (08/08/16 3:26 AM) (08/07/16 2:32 AM) (08/06/16 5:47 PM) Platelet [133-450 K/CMM] 259 K/CMM 242 K/CMM 209 K/CMM (08/08/16 3:26 AM) (08/07/16 2:32 AM) (08/06/16 5:47 PM) MPV [7.4-10.4 fL] 8.2 fL 8.0 fL 8.1 fL (08/08/16 3:26 AM) (08/07/16 2:32 AM) (08/06/16 5:47 PM) Segs [45.0-75.0 %] 60.9 % 79.1 % 84.5 % (08/08/16 3:26 AM) *HI* *HI* (08/07/16 2:32 AM) (08/06/16 5:47 PM) Lymphocytes [20.0-40.0 %] 24.4 % 11.2 % 7.7 % (08/08/16 3:26 AM) *LOW* *LOW* (08/07/16 2:32 AM) (08/06/16 5:47 PM) Monocytes [2.0-12.0 %] 10.9 % 9.1 % 7.6 % (08/08/16 3:26 AM) (08/07/16 2:32 AM) (08/06/16 5:47 PM) Eosinophils [0.0-4.0 %] 2.9 % 0.4 % (08/08/16 3:26 AM) (08/07/16 2:32 AM) Basophils [0.0-1.0 %] 0.9 % 0.2 % 0.2 % (08/08/16 3:26 AM) (08/07/16 2:32 AM) (08/06/16 5:47 PM) Segs-Bands # [1.5-8.1 K/CMM] 8.2 K/CMM 18.3 K/CMM 22.2 K/CMM *HI* *HI* *HI* (08/08/16 3:26 AM) (08/07/16 2:32 AM) (08/06/16 5:47 PM) Lymphocytes # [1.0-5.5 3.3 K/CMM 2.6 K/CMM 2.0 K/CMM K/CMM] (08/08/16 3:26 AM) (08/07/16 2:32 AM) (08/06/16 5:47 PM) Monocytes # [0.0-0.8 K/CMM] 1.5 K/CMM 2.1 K/CMM 2.0 K/CMM *HI* *HI* *HI* (08/08/16 3:26 AM) (08/07/16 2:32 AM) (08/06/16 5:47 PM) Eosinophils # [0.0-0.5 0.4 K/CMM 0.1 K/CMM K/CMM] (08/08/16 3:26 AM) (08/07/16 2:32 AM) Basophils # [0.0-0.2 K/CMM] 0.1 K/CMM 0.1 K/CMM (08/08/16 3:26 AM) (08/06/16 5:47 PM) BACTERIAL - SEROLOGY Most recent to oldest [Reference Range]: 1 2 3 MRSA by PCR Negative (08/07/16 1:10 PM) Immunizations No data available for this section Procedures Procedure Date Related Diagnosis Body Site Lobectomy of brain 2004 Operation Operation ORIF - Open reduction and internal fixation of fracture Social History Social History Type Response Alcohol Never Smoking Status Never smoker; Exposure to Tobacco Smoke None; Cigarette Smoking Last 365 Days No; Reg Smoking Cessation Counseling No Assessment and Plan Extracted from: Title: Clinical Document Author: Zohra Hartley MD Date: 08/08/16 General Neurology Discharge Summary Date of Admission: 08/06/16 Date of Discharge: 08/08/2016 Admit Diagnosis: breakthrough seizure Discharge Diagnosis: breakthrough seizure Consults Obtained: none Brief HPI: Mr. 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 He was found down on floor soaked with urine, blood however family unknown for how long he was on floor. They took him OSH where he was found to have agrresive, moving and they gave IV ativan 4 mg and IV versed 2.5 mg and loaded with Fosphenytoin and CTH was done reported normal. After th at he was confused, not following commands and send him here for HLOC. Here at 6 pm during evaluation, he was awake, opening his eyes on upon calling name, following commands, pupil 2-3 mm reactive, gaze midline, moving all 4 x extremities. At baseline he lives with his grandmom and works in [employer] once / week. Otherwise compliant with his medication. Hospital Course: Patient initially admitted to NTICU, although he never required intubation. He was restarted on his home medications of Zonisamide 300mg BID and Lamotrigine 300mg BID, and was placed on cvEEG, which did not reveal evidence of further seizures. VNS was interrogated and was functional. He was completely returned to baseline at time of discharge and already has a follow-up appointment with Dr. Ferrari next month, per his mother. Discharge Physical Examination Vitals Tmp(F) Tmp(C) Ttype BP MAP Pulse RR SpO2 FIO2 ETCO2 08/08 09:00 ---- ---- ---- 101/56 72 76 20 96 --- --- 08/08 08:00 ---- ---- ---- 126/78 97 93 32 99 --- --- 08/08 07:54 ---- ---- ---- 126/87 102 120 34 --- --- --- 08/08 07:45 97.8 36.56 axil ----- --- --- -- --- --- --- 08/08 06:00 ---- ---- ---- 119/75 90 84 20 96 --- --- 24 Hr Tmax: 99.1F (37.28c) at 08/07 20:49 Vital Signs are the last 5 in the past 48 hours. 24 Hr Tmin: 97.6F (36.44c) at 08/07 23:25 Weights are the last 5 in 60 days, plus initial. Date Wt(kg) Wt(lb) Ht(cm) Ht(in) Method BMI BSA 08/07 73.38 161.44 Measured 08/06 (initial) 72.73 160.00 Estimated 23.7 1.88 08/06 175.26 69.00 Stated 24 Hr Point of Care Glucoses 08/07 1919 Glucose POC 77 08/07 1543 Glucose POC 90 Most Recent Scores: 08/08/16 Lorenzo Coma Score 15 08/08/16 Pain Intensity NRS (0-10) 4 08/08/16 Conrad Landis Fall Score 4 08/08/16 Cameron Score 20 Lines, Tubes, and Drains: 08/06/2016 17:00 Peripheral Lines: Antecubital Left 20 gauge Over the needle catheter 08/06/2016 17:00 Peripheral Lines: Antecubital Right Over the needle catheter Higher Function: AAO*3 Speech: fluent, comprehension intact, repetition and naming intact Cranial Nerves: 2-12 intact Motor: - Tone: Normal - Power: 5/5 in all groups of muscles in UE and LE bilaterally - Reflexes: 2+ symmetrical bilaterally - Plantar: Flexor - Drift: absent Sensory: - Intact light touch and pin prick sensation - Intact vibration and position sense Cerebellar signs: Intact Finger Nose Test, No dysmetria on heel knee wagoner test , Romberg s negative Gait: deferred Discharge Medications: lamotrigine 300mg BID zonisamide 300mg q12hr Follow up: Follow-up with Dr. Ferrari in 1 month Discharge Instructions: Please continue home doses of lamotrigine 300mg BID and zonisamide 300mg q12hr F/U with Dr. Ferrari in 1 month Zohra Hartley PGY 1 Neurology Resident Neurology Attending Physician Statement: The patient was seen and examined by me and I agree with the discharge planning. Dx: breakthrough seizure due to non compliance, hx of epilepsy surgery and VNS placement Logan Cotton MD Nursing Service Director of Neurology. Pager:[phone] Extracted from: Title: Clinical Document Author: Oniel Wang MD Date: 08/06/16 General Neurology History and Physical Attending: Dr. Cotton Patient name: Gibson Chandra CC: Breakthrough seizures HISTORY OF PRESENT ILLNESS: Mr. 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 He was found down on floor [place] with urine, blood however family unknown for how long he was on floor. They took him OSH where he was found to have agrresive, moving and they gave IV ativan 4 mg and IV versed 2.5 mg and loaded with Fosphenytoin and CTH was done reported normal. After that he was confused, not following commands and send him here for HLOC. Here at 6 pm during evaluation, he was awake, opening his eyes on upon calling name, following commands, pupil 2-3 mm reactive, gaze midline, moving all 4 x extremities. At baseline he lives with his grandmom and works in [employer] once / week. Otherwise compliant with his medication. Mom PHone: [phone] Review of Systems: GEN: No fever, chills, night sweats, weight loss, fatigue EYES: No blurred vision, double vision, eye pain ENT: No decreased hearing, nose bleeding, nasal congestion, sore throat CARDIO: No chest pain, palpitation, orthopnea, dyspnea on exertion PULM: No shortness of breath, cough, wheezing, hemoptysis GI: No nausea, vomiting, diarrhea, constipation, abdominal pain : No frequency, burning, hematuria, nocturia, hesitancy [...] 300 mg bid. Allergies: NOne Physical Exam: GEN - Awake, seems drowsy however following commands. HEAD - Normocephalic and atraumatic EYES - PERRL, non-injected conjunctiva PHARYNX - Buccal mucosa pink, mucous membranes moist. OP clear, no tonsillar enlargement, no exudate NECK - Supple, thyroid non-palpable, no significant adenopathy LUNGS - Clear to auscultation, no wheezes, rales or rhonchi CV - Rate rhythm regular, no murmur, peripheral pulses equal bilaterally ABDOMEN - Non-distended, soft, non-tender, with normal bowel sounds; no hepatosplenomegaly SPINE - Straight, no defects, no scoliosis SKIN - Clear, no rashes Neurology: Awake, seems drowsy however following commands. oriented to himself not place. Speech:answering question like his name ortho rn: pupil 3-4 mm reactive, midline gaze, moving eyes in all direction , face symmetric. Motor: Tone- Normal Strength- moving all 4 extremities. Sensory: withdraws to painful stimuli. Cerebellar signs:not tested Romberg: not tested Gait: deferred. Labs: Ca Ion WB 1.04 L Ca Norm WB 0.99 L Glucose Lvl 77 BUN 7 Creatinine Lvl 1.07 Sodium Lvl 141 Potassium Lvl 3.8 Chloride Lvl 110 H CO2 20 L AGAP 14.8 Calcium Lvl 7.3 L eGFR 95 Magnesium Lvl 1.9 Phosphorus 2.4 L WBC 26.3 H RBC 4.25 L Hgb 13.1 L Hct 39.5 L MCV 92.8 MCH 30.9 MCHC 33.2 RDW 13.5 Platelet 209 MPV 8.1 Segs 84.5 H Monocytes 7.6 Lymphocytes 7.7 L Basophils 0.2 Segs-Bands # 22.2 H Lymphocytes # 2.0 Monocytes # 2.0 H Basophils # 0.1 Diagnostic Tests: CTH at OSH: no acute intracranial changes, no early ischemic changes. Assessment: Mr. 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 Given pt usually compliant with his medication however for last 3 days he was not taking his Lamictal due to insurance issues his breakthrough most likely 2/2 non compliant for last few days. On exam pt is awake however drowsy could be post ictal or the effects of BDZ what he got at osh. As he is following simple commands without any difficulty so pt is not in subclinical status. Event though initial thought was that pt might be in subclinical status c EEG was hooke d up. If he is fine overnight then we cant take the EEG off in am. We don't need any further imaging given his history and prior compliant with medication. Plan: # CPS - c/w Lamictal 300 mg bid and Zonisamide 300 mg bid however pt is drowsy we need to get a bedside swallow evaluation before we start on PO medication and if he doesn't pass swallow then interim we could give IV keppra 1000 mg bid. - eventually if seizes then we might titrate up Zonisamide and lamictal. -will get UA, UDS -No imaging right now. # ? Depression -at home on Sertraline -now holding. can resuem at time of discharge. Update 0500, Reevaluated the pt, he is more awake, oriented to himself, place, follwoing commands. Passed bedside swallow and asking for drink water. Case was discussed with plant production manager attending Dr. Ramirez and plan was updated to ICU team, family. Oniel Wang MD PGY2 Resident Neurology Neurology Attending Physician Statement: The patient was seen and examined by me on 08/07 and I agree with the History/ Exam/Medical Decision Making document. Patient is still very drowsy, however easily arousable, follows commands and answer questions, moves all 4 limbs at least 4/5. Dx: breakthrough seizure due to non compliance, hx of epilepsy surgery and VNS placement Sz frequency 2-3/month VNS interrogated today, working at 2.75 current. Home meds resumed. Patient noted to have tachycardia 100-120, no infection was found so far. Will review cEEG and if negative will d/c. Plan for d/c home tomorrow if back to baseline and more alert and awake. Logan Cotton MD Nursing Service Director of Neurology. Pager:[phone]
--- OUTSIDE RECORDS SUMMARY | 2018-08-02 16:30 | XMS REPORT | CCD ---
:1990 Author Organization [facility] Care Team Providers Name Role Phone Scott Durant Consulting Provider Sriram Terrell III Primary Care Provider Allergies, Adverse Reactions, Alerts Substance Reaction Status NKDA Active Vital Signs Most recent to oldest 1 2 3 [Reference Range]: Height 175.26 cm (07/24/2012 09:33:00) Temperature Oral [96.4-99.1 97.1 DegF 97.6 DegF 97.3 DegF DegF] (07/25/2012 09:10:00) (07/24/2012 21:15:00) (07/24/2012 13:09:00) Systolic Blood Pressure 116 mmHg 124 mmHg 113 mmHg [90-140 mmHg] (07/25/2012 09:10:00) (07/24/2012 21:15:00) (07/24/2012 13:09: 00) Diastolic Blood Pressure 69 mmHg 72 mmHg 64 mmHg [60-90 mmHg] (07/25/2012 09:10:00) (07/24/2012 21:15:00) (07/24/2012 13:09: 00) Respiratory Rate [14-20 17 BRMIN BRMIN] (07/24/2012 21:15:00) Weight 72.727 kg (07/24/2012 09:33:00)
--- OUTSIDE RECORDS SUMMARY | 2018-08-02 16:30 | XMS REPORT | CCD ---
:1990 Author Organization [facility] Care Team Providers Name Role Phone León Foster Referring Provider Sriram Terrell III Primary Care Provider Allergies, Adverse Reactions, Alerts Substance Reaction Status NKDA Active Problem List Condition Effective Dates Status cranial stenosis 1988 Resolved Depression Active Hematoma Active Seizure disorder Active Varicocele Resolved Viral encephalitis 1999 Resolved Medications Medication Instructions Start Date End Date Status vancomycin + Sodium 1.5 gm, Route: IVPB, 03/12/2013 03/13/2013 Discontinued Chloride 0.9% IV 250 mL ABXQ8H, Dosing Weight 79.545, kg, Start date: 03/12/13 9:31:00, Duration: 30 day, Stop date: 04/11/13 1:31:00(Same As: Vancocin) Vancomycin FOR IV SET ONLY Sodium Chloride 0.9% IV 1,000 mL, Rate: 75 ml/hr, 03/12/2013 03/13/2013 Discontinued 1,000 mL Infuse over: 13.3 hr, Route: IV, Dosing Weight 79.545 kg, Total Volume: 1,000, Start date: 03/12/13 13:23:00, Duration: 30 day, Stop date: 04/11/13 13:22:00 Milk of Magnesia 30 mL, Route: PO, Drug 03/12/2013 03/13/2013 Discontinued Form: SUSP, Dosing Weight 79.545, kg, Q6H, PRN Constipation, Start date: 03/12/13 11:34:00, Duration: 30 day, Stop date: 04/11/13 11:33:00(Same as: Milk of Magnesia, MOM) Newport 10/325 oral tablet 1 tab, Route: PO, Drug 03/12/2013 03/13/2013 Discontinued Form: TAB, Dosing Weight 79.545, kg, Q4H, PRN Pain, Start date: 03/12/13 11:37:00, Duration: 30 day, Stop date: 04/11/13 11:36:00Do not exceed 4gm/day of acetaminophen. (Same as: Newport 325/10) cephalexin 500 mg oral 500 mg=1 tab, PO, BID, # 03/13/2013 03/20/2013 Ordered tablet 14 tab, 0 Refill(s) lacosamide 100 mg oral 100 mg=1 tab, PO, BID, # 03/13/2013 06/11/2013 Ordered tablet 60 tab, 2 Refill(s) ondansetron 4 mg, 2 mL, Route: IVP, 03/12/2013 03/12/2013 Discontinued Drug form: INJ, ONCE, Dosing Weight 79.545, kg, PRN Nausea & Vomiting, Start date: 03/12/13 11:57:00(Same as: Zofran) flumazenil 0.2 mg, 2 mL, Route: IVP, 03/12/2013 03/12/2013 Discontinued Drug form: INJ, PRN, Dosing Weight 79.545, kg, PRN Benzodiazepine Reversal, Initial dose, Start date: 03/12/13 11:57:00, Duration: 30 day, Stop date: 04/11/13 11:56:00(Same as: Romazicon) hydromorphone 0.5 mg, 0.25 mL, Route: 03/12/2013 03/12/2013 Discontinued IVP, Drug form: INJ, Q5Min, Dosing Weight 79.545, kg, PRN Pain Score 7-10, Start date: 03/12/13 11:57:00, Duration: 4 doses or times, Stop date: 03/13/13 0:00:00(Same as: Dilaudid) naloxone 0.04 mg, 0.1 mL, Route: 03/12/2013 03/12/2013 Discontinued IVP, Drug form: INJ, Q2MIN, Dosing Weight 79.545, kg, PRN Narcotic Reversal, Start date: 03/12/13 11:57:00, Duration: 8 doses or times, Stop date: 03/13/13 0:00:00(Same as: Narcan) labetalol 10 mg, 2 mL, Route: IVP, 03/12/2013 03/12/2013 Discontinued Drug form: INJ, Q5Min, Dosing Weight 79.545, kg, PRN Elevated BP, Start date: 03/12/13 11:57:00, Duration: 5 doses or times, Stop date: 03/13/13 0:00:00 hydrALAZINE 10 mg, 0.5 mL, Route: 03/12/2013 03/12/2013 Discontinued IVP, Drug form: INJ, Q20Min, Dosing Weight 79.545, kg, PRN Elevated BP, Start date: 03/12/13 11:57:00, Duration: 2 doses or times, Stop date: 03/13/13 0:00:00(Same as: Apresoline)Push over 5 minutes Vimpat 100 mg, 1 tab, Route: PO, 03/12/2013 03/13/2013 Discontinued Drug form: TAB, BID, Dosing Weight 79.545, kg, Start date: 03/12/13 17:00:00, Duration: 30 day, Stop date: 04/11/13 9:00:00Same as: Vimpat LaMICtal XR 600 mg, 6 tab, Route: PO, 03/13/2013 03/13/2013 Discontinued Drug form: ERTAB, Daily, Dosing Weight 79.545, kg, Start date: 03/13/13 9:00:00, Duration: 30 day, Stop date: 04/11/13 9:00:00Same as: LaMICtal XR senna 8.6 mg oral tablet 8.6 mg, 1 tab, Route: PO, 03/12/2013 03/13/2013 Discontinued Drug Form: TAB, Dosing Weight 79.545, kg, Bedtime, PRN Constipation, Start date: 03/12/13 13:24:00, Duration: 30 day, Stop date: 04/11/13 13:23:00(Same as: Senokot) docusate 50 mg, 5 mL, Route: PO, 03/12/2013 03/13/2013 Discontinued Drug form: LIQ, BID, Dosing Weight 79.545, kg, PRN Constipation, Start date: 03/12/13 13:24:00, Duration: 30 day, Stop date: 04/11/13 13:23:00(Same as: Colace) sertraline 25 mg, 1 tab, Route: PO, 03/13/2013 03/13/2013 Discontinued Drug form: TAB, Daily, Dosing Weight 79.545, kg, Start date: 03/13/13 9:00:00, Duration: 30 day, Stop date: 04/11/13 9:00:00(Same as: Zoloft) cefepime 2 gm, Route: IVPB, Drug 03/12/2013 03/13/2013 Discontinued form: INJ, ABXQ8H, Dosing Weight 79.545, kg, (CrCl >/=50 ml/min, RESEARCH ASSOCIATE infection or neutropenic fever), Start date: 03/12/13 9:42:00, Duration: 30 day, Stop date: 04/11/13 1:42:00(Same as: Maxipime) Vital Signs Most recent to oldest 1 2 3 [Reference Range]: Height 175.26 cm (03/12/2013 07:42:00) Temperature Oral 97.5 DegF 98 DegF [96.4-99.1 DegF] (03/12/2013 14:15:00) (03/12/2013 11:30:00) Systolic Blood Pressure 127 mmHg 130 mmHg 108 mmHg [90-140 mmHg] (03/13/2013 08:16:00) (03/13/2013 05:00:00) (03/13/2013 00:00: 00) Diastolic Blood Pressure 84 mmHg 69 mmHg 68 mmHg [60-90 mmHg] (03/13/2013 08:16:00) (03/13/2013 05:00:00) (03/13/2013 00:00: 00) Respiratory Rate [14-20 20 BRMIN 20 BRMIN 16 BRMIN BRMIN] (03/13/2013 08:16:00) (03/12/2013 16:02:00) (03/12/2013 14:15:00) Peripheral Pulse Rate 92 bpm [60-100 bpm] (03/12/2013 08:02:00) Weight 79.545 kg (03/12/2013 07:42:00) Results BLOOD BANK RESULTS Most recent to oldest [Reference Range]: 1 ABO/Rh O POS *Unknown* (03/12/2013 08:00:00) Antibody Scrn Negative (03/12/2013 08:00:00) CHEMISTRY Most recent to oldest [Reference Range]: 1 Sodium Lvl [135-145 mEq/L] 140 mEq/L (03/12/2013 12:44:00) Potassium Lvl [3.5-5.1 mEq/L] 4.3 mEq/L 1 (03/12/2013:44:00) Chloride Lvl [95-109 mEq/L] 104 mEq/L (03/12/2013:44:00) CO2 [24-32 mEq/L] 29 mEq/L (03/12/2013:44:00) AGAP [10.0-20.0 mEq/L] 11.3 mEq/L (03/12/2013:44:00) Creatinine Lvl [0.5-1.4 mg/dL] 0.4 mg/dL *LOW* (03/12/2013:44:00) eGFR 166 mL/min/1.73m2 2 *NA* (03/12/2013:44:00) BUN [7-22 mg/dL] 7 mg/dL (03/12/2013:44:00) Glucose Lvl [70-99 mg/dL] 81 mg/dL 3 (03/12/2013:44:00) Calcium Lvl [8.5-10.5 mg/dL] 8.8 mg/dL (03/12/2013:44:00) 1Result Comment: Specimen Moderately Hemolyzed.2Result Comment: The eGFR is calculated using the CKD-EPI formula. In most young, healthy individualsthe eGFR will be >90 mL/min/1.73m2. The eGFR declines with age. An eGFR of 60-89 may be normal in some populations, particularly the elderly, for whom the CKD- EPI formula has not been extensively validated. Use [...] eGFR should be multiplied by the estimated BMI.3Interpretive Data: Adult reference range values reflect the clinical guidelines of the [place] [employer].HEMATOLOGY Most recent to oldest [Reference Range]: 1 WBC [3.7-10.4 K/CMM] 15.3 K/CMM *HI* (03/12/2013:00:46) RBC [4.70-6.10 M/CMM] 4.27 M/CMM *LOW* (03/12/2013:00:46) Hgb [14.0-18.0 g/dL] 13.0 g/dL *LOW* (03/12/2013:00:46) Hct [42.0-54.0 %] 39.0 % *LOW* (03/12/2013::46) MCV [80.0-94.0 fL] 91.2 fL (03/12/2013:46) MCH [27.0-31.0 pg] 30.5 pg (03/12/2013::46) MCHC [32.0-36.0 g/dL] 33.4 g/dL (03/12/2013::46) RDW [11.5-14.5 %] 13.3 % (03/12/2013::46) Platelet [133-450 K/CMM] 279 K/CMM (03/12/2013::46) MPV [7.4-10.4 fL] 8.3 fL (03/12/2013::46) Segs [45.0-75.0 %] 72.2 % (03/12/2013::46) Lymphocytes [20.0-40.0 %] 13.2 % *LOW* (03/12/2013:46) Monocytes [2.0-12.0 %] 6.7 % (03/12/2013::46) Eosinophils [0.0-4.0 %] 7.8 % *HI* (03/12/2013:46) Basophils [0.0-1.0 %] 0.1 % (03/12/2013::46) Segs-Bands # [1.5-8.1 K/CMM] 11.1 K/CMM *HI* (03/12/2013 14:00:46) Lymphocytes # [1.0-5.5 K/CMM] 2.0 K/CMM (03/12/2013 14:00:46) Monocytes # [0.0-0.8 K/CMM] 1.0 K/CMM *HI* (03/12/2013 14:00:46) Eosinophils # [0.0-0.5 K/CMM] 1.2 K/CMM *HI* (03/12/2013 14:00:46) PT [12.0-14.7 seconds] 13.3 seconds (03/12/2013 13:53:37) INR [0.85-1.17] 1.02 4 (03/12/2013 13:53:37) PTT [22.9-35.8 seconds] 30.0 seconds 5 (03/12/2013 13:53:37) AA 5.0 46 % agg. *NA* (03/12/2013 11:20:00) AA 2.5 8 % agg. *NA* (03/12/2013 11:20:00) ADP 5.0 65 % agg. *NA* (03/12/2013 11:20:00) ADP 2.5 36 % agg. *NA* (03/12/2013 11:20:00) Collagen 5.0 76 % agg. *NA* (03/12/2013 11:20:00) Epi 11.0 66 % agg. *NA* (03/12/2013 11:20:00) Epi 5.5 61 % agg. *NA* (03/12/2013 11:20:00) Ris 1.5 86 % agg. *NA* (03/12/2013 11:20:00) Ris .75 13 % agg. *NA* (03/12/2013 11:20:00) Plt Agg Interp Platelet aggregation study shows decreased aggregation with low concentration of arachidonic acid and mildly decreased aggregation with higher concentration of arachidonic acid and low concentration of ADP. Aggregation with ristocetin, collagen and epinephrine is adequate. Impression: findings are consistent with mild platelet dysfunction. This pattern is suggestive of medication effect (most likely NSAIDs versus Aspirin). Clinical correlation is required. CPT: 43549 x5 *NA* (03/12/2013 11:20:00) 4Interpretive Data: RECOMMENDED RANGES FOR PROTIME INR: 2.0-3.0 for most medical and surgical thromboembolic states. 2.5-3.5 for artificial heart valves and recurrent embolism. INR SHOULD BE USED ONLY FOR PATIENTS ON STABLE ANTICOAGULANT THERAPY.5Interpretive Data: Heparin Therapeutic Range: 57 - 92 Seconds
--- OUTSIDE RECORDS SUMMARY | 2018-08-02 16:31 | XMS REPORT | Summary of Care ---
:1990 Author Organization [facility] Address [address], [place] [address]- Care Team Providers Name Role Phone Sriram Terrell III Primary Care Physician Encounter [facility] Enccarar_marylu([facility]) [id number] Date(s): 10/07/14 - 10/07/14 [facility] [address] [place] [address] Discharge Disposition: Home Attending Physician: Yonny Ferrari MD Referring Physician: Yonny Ferrari MD Vital Signs No data available for this section Problem List Condition Effective Dates Status Health Status Informant Depression(Confirmed) Active Hematoma(Confirmed) Active Seizure disorder(Confirmed) Active Varicocele(Confirmed) Resolved Viral encephalitis(Confirmed) 1999 Resolved Allergies, Adverse Reactions, Alerts Substance Reaction Severity Status NKDA Active Medications No data available for this section Results No data available for this section Immunizations No data available for this section Procedures Procedure Date Related Diagnosis Body Site Lobectomy of brain 2004 Operation Operation ORIF - Open reduction and internal fixation of fracture Social History No data available for this section Assessment and Plan No data available for this section
--- OUTSIDE RECORDS SUMMARY | 2018-08-02 16:31 | XMS REPORT | Summary of Care ---
:1990 Author Care Team Providers Name Role Phone Sriram Terrell III Primary Care Physician Encounter Dates Location Diagnoses Discharge Disposition Providers 04/13/2013 - [facility] Yonny Ferrari 04/17/2013 [id number] [facility] Yonny Ferrari [address] Reason for Visit INTRACTABLE SEIZURE Vital Signs Most recent to oldest 1 2 3 [Reference Range]: Height 175.26 cm (04/13/2013 08:23:00 [place]) Temperature Oral 98.2 DegF 97.8 DegF 98.1 DegF [96.4-99.1 DegF] (04/17/2013 07:58:00 [place]) (04/16/2013 19:56:00 [place]) (04/16/2013 09:27:00 [place] Systolic Blood Pressure 136 mmHg 142 mmHg 130 mmHg [90-140 mmHg] (04/17/2013 07:58:00 [place] *HI* (04/16/2013 09:27: 00 [place]) (04/16/2013 19:56:00 [place] Diastolic Blood Pressure 89 mmHg 90 mmHg 84 mmHg [60-90 mmHg] (04/17/2013 07:58:00 [place]) (04/16/2013 19:56:00 [place]) (04/16/2013 09:27:00 [place] Respiratory Rate [14-20 20 BRMIN 20 BRMIN 24 BRMIN BRMIN] (04/17/2013 07:58:00 [place]) (04/16/2013 19:56:00 [place]) *HI* (04/15/2013 21:10:00 [place] Peripheral Pulse Rate 75 bpm 75 bpm 81 bpm [60-100 bpm] (04/17/2013 07:58:00 [place]) (04/16/2013 19:56:00 [facility]) (04/16/2013 09:27:00 [facility]) Weight 72.727 kg (04/13/2013 08:23:00 [facility]) Body Mass Index 23.68 m2 (04/13/2013 08:23:00 [facility]) Problem List Condition Effective Dates Status Health Status Informant cranial stenosis(Confirmed) 1988 Resolved Depression(Confirmed) Active Hematoma(Confirmed) Active Seizure disorder(Confirmed) Active Varicocele(Confirmed) Resolved Viral encephalitis(Confirmed) 1999 Resolved Allergies, Adverse Reactions, Alerts Substance Reaction Severity Status NKDA Active Medications Medication Instructions Start Date Stop Date Status Ativan 1 mg oral tablet 1 mg=1 tab, PO, BID, # 8 04/17/2013 Ordered tab, 0 Refill(s) Calcium, Magnesium and 2 tab, PO, BID, # 100 04/13/2013 04/13/2013 Discontinued Phosphorus oral tablet tab, 0 Refill(s) ibuprofen 600 mg, 1 tab, Route: PO, Drug form: TAB, ONCE, Dosing Weight 72.727 , kg, Priority: NOW, Start date: 04/17/13 0:40:00, Stop date: 04/17/13 0:40:00 04/17/2013 04/17/2013 Ordered (Same as: Motrin)"Do Not Crush" Take with food. lacosamide 100 mg, 1 tab, Route: PO, Drug form: TAB, BID, Dosing Weight 72.727 , kg, Start date: 04/16/13 19:30:00, Duration: 30 day, Stop date: 05/16/13 17:00 :00 04/16/2013 04/17/2013 Discontinued Same as: Vimpat LaMICtal 200 mg, Route: PO, Daily, 04/14/2013 04/13/2013 Canceled Dosing Weight 72.727, kg, Start date: 04/14/13 9:00:00, Duration: 30 day, Stop date: 05/13/13 9:00:00 LaMICtal XR 600 mg, 6 tab, Route: PO, Drug form: ERTAB, Daily, Dosing Weight 72.727, kg, Start date: 04/17/13 9:00:00, Duration: 30 day, Stop date: 05/16/13 9:00:00 04/17/2013 04/17/2013 Discontinued Same as: LaMICtal XR LaMICtal XR 100 mg, 1 tab, Route: PO, Drug form: ERTAB, Daily, Dosing Weight 72.727, kg, Start date: 04/14/13 9:00:00, Stop date: 05/13/13 9:00:00 201304/17/2013 Discontinued Same as: LaMICtal XR LaMICtal XR 600 mg, 6 tab, Route: PO, Drug form: ERTAB, ONCE, Dosing Weight 72.727, kg, Priority: NOW, Start date: 04/16/13 21:59:00, Stop date: 04/16/13 21 :59:00 04/16/2013 04/16/2013 Completed Same as: LaMICtal XR lamoTRIgine 100 mg oral 600 mg=6 tab, PO, Daily, 04/17/2013 Ordered tablet, extended release # 180 tab, 11 Refill(s) multivitamin with 1 tab, Route: PO, Drug Form: TAB, Dosing Weight 72.727, kg, Daily, Start date: 04/14/13 9:00:00, Duration: 30 day, Stop date: 05/13/13 9:00: 00 04/14/2013 04/17/2013 Discontinued minerals (Same as:Thera-M, Theragran-M) Give with food. multivitamin with Daily, 0 Refill(s) 04/13/2013 04/13/2013 Discontinued minerals sertraline 25 mg, 1 tab, Route: PO, Drug form: TAB, Daily, Dosing Weight 72.727, kg, Start date: 04/14/13 9:00:00, Duration: 30 day, Stop date: 05/13/13 9:00:00 04/14/2013 04/17/2013 Discontinued (Same as: Zoloft) sertraline 25 mg oral 25 mg=1 tab, PO, Daily, # 04/17/2013 Ordered tablet 30 tab, 11 Refill(s) Tylenol 650 mg, 2 tab, Route: PO, Drug form: TAB, Q4H, Dosing Weight 72.727, kg, PRN Pain, Start date: 04/15/13 7:36:00, Duration: 30 day, Stop date: 7:35:00 04/15/2013 04/17/2013 Discontinued Do not exceed 4 gm/day. (Same as: Tylenol) Vimpat 100 mg oral tablet 100 mg=1 tab, BID, 0 04/15/2013 Ordered Refill(s) Zofran 4 mg, 2 mL, Route: IV, Drug form: INJ, Q8H, Dosing Weight 72.727, kg, PRN Nausea, Start date: 04/16/13 22:00:00, Duration: 30 day, Stop date: 21:59:00 04/16/2013 04/17/2013 Discontinued (Same as: Zofran) Results ELECTROLYTES Most recent to oldest [Reference Range]: 1 Sodium Lvl [135-145 mEq/L] 141 mEq/L (04/13/2013 09:12:00 [facility]) Potassium Lvl [3.5-5.1 mEq/L] 3.2 mEq/L *LOW* (04/13/2013 09:12:00 [facility]) Chloride Lvl [95-109 mEq/L] 102 mEq/L (04/13/2013 09:12:00 [facility]) CO2 [24-32 mEq/L] 30 mEq/L (04/13/2013 09:12:00 [facility]) AGAP [10.0-20.0 mEq/L] 12.2 mEq/L (04/13/2013 09:12:00 [facility]) CHEM PANEL Most recent to oldest [Reference Range]: 1 Creatinine Lvl [0.5-1.4 mg/dL] 0.9 mg/dL (04/13/2013 09:12:00 [facility]) eGFR 119 mL/min/1.73m2 1 *NA* (04/13/2013 09:12:00 [facility]) BUN [7-22 mg/dL] 6 mg/dL *LOW* (04/13/2013 09:12:00 [facility]) Glucose Lvl [70-99 mg/dL] 77 mg/dL 2 (04/13/2013 09:12:00 [facility]) Total Protein [6.4-8.4 g/dL] 7.2 g/dL (04/13/2013 09:12:00 [facility]) Albumin Lvl [3.5-5.0 g/dL] 4.1 g/dL (04/13/2013 09:12:00 [facility]) Globulin [2.0-4.0 g/dL] 3.1 g/dL (04/13/2013:12 [facility]) A/G Ratio [0.7-1.6] 1.3 (04/13/2013:12: [facility]) Calcium Lvl [8.5-10.5 mg/dL] 9.4 mg/dL (04/13/2013:12: [facility]) ALT [0-65 unit/L] 28 unit/L (04/13/2013:12: [facility]) AST [0-37 unit/L] 13 unit/L (04/13/2013: [facility]) Alk Phos [39-136 unit/L] 99 unit/L (04/13/2013:12: [facility]) Bili Total [0.2-1.3 mg/dL] 0.4 mg/dL (04/13/2013:12:00 [facility]) Bili Direct [0.0-0.3 mg/dL] 0.1 mg/dL (04/13/2013:12:00 [facility]) Bili Indirect [0.0-1.0 mg/dL] 0.3 mg/dL (04/13/2013:12:00 [facility]) 1Result Comment: The eGFR is calculated using [...] eGFR should be multiplied by the estimated BMI.2Interpretive Data: Adult reference range values reflect the clinical guidelines of the [place] [employer].TOXICOLOGY Most recent to oldest [Reference Range]: 1 Carbamaz Lvl [8.0-12.0 ug/ml] <0.5 ug/ml *LOW* (04/13/2013 09:12:00 [facility]) Lacosamide Lvl 6.3 microgram/mL 3 *NA* (04/13/2013 09:12:00 [facility]) 3Result Comment: Reference Range: Expected concentrations of lacosamide in patients receiving recommended daily dosages: Up to 15.0 mcg/mL. Toxic range not established Test Performed at: [facility], [address] [place] [id number] Rubi Harrison MD, FCAPHEMATOLOGY Most recent to oldest [Reference Range]: 1 WBC [3.7-10.4 K/CMM] 8.3 K/CMM (04/13/2013 09:12:00 [facility]) RBC [4.70-6.10 M/CMM] 4.67 M/CMM *LOW* (04/13/2013 09:12:00 [facility]) Hgb [14.0-18.0 g/dL] 14.6 g/dL (04/13/2013 09:12:00 [facility]) Hct [42.0-54.0 %] 42.0 % (04/13/2013:12:00 [facility]) MCV [80.0-94.0 fL] 89.9 fL (04/13/2013 09:12:00 [facility]) MCH [27.0-31.0 pg] 31.3 pg *HI* (04/13/2013 09:12:00 [facility]) MCHC [32.0-36.0 g/dL] 34.8 g/dL (04/13/2013 09:12:00 [facility]) RDW [11.5-14.5 %] 13.1 % (04/13/2013:12:00 [facility]) Platelet [133-450 K/CMM] 275 K/CMM (04/13/2013 09:12:00 [facility]) MPV [7.4-10.4 fL] 8.2 fL (04/13/2013 09:12:00 [facility]) Segs [45.0-75.0 %] 51.9 % (04/13/2013 09:12:00 [facility]) Lymphocytes [20.0-40.0 %] 30.4 % (04/13/2013 09:12:00 [facility]) Monocytes [2.0-12.0 %] 11.4 % (04/13/2013 09:12:00 [facility]) Eosinophils [0.0-4.0 %] 5.6 % *HI* (04/13/2013 09:12:00 [facility]) Basophils [0.0-1.0 %] 0.7 % (04/13/2013 09:12:00 [facility]) Segs-Bands # [1.5-8.1 K/CMM] 4.3 K/CMM (04/13/2013 09:12:00 [facility]) Lymphocytes # [1.0-5.5 K/CMM] 2.5 K/CMM (04/13/2013 09:12:00 [facility]) Monocytes # [0.0-0.8 K/CMM] 1.0 K/CMM *HI* (04/13/2013 09:12:00 [facility]) Eosinophils # [0.0-0.5 K/CMM] 0.5 K/CMM (04/13/2013 09:12:00 [facility]) Basophils # [0.0-0.2 K/CMM] 0.1 K/CMM (04/13/2013 09:12:00 [facility]) Medications Administered During Your Visit No data available for this section Immunizations No data available for this section Procedures Procedure Type Body Site Date of Procedure Related Diagnosis Lobectomy of brain 2004 Assessment and Plan Extracted from: Title: EMU Progress Note Author: Yonny Ferrari Date: 04/14/2013 S: No complaints. No seizures. O: VSS Afebrile Awake, alert, cooperative. Neuro examination without change. VEEG - no seizures. Left temporal sharp waves. VNS activations in response to tachycardia (not ictal). 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 A/P: Continue monitoring per protocol. Medications reduced. Yonny Ferrari MD Extracted from: Title: Neurology Author: Rosa Gale Date: 04/13/2013 [facility] History & Physical HPI: The patient is a 23 y.o. left handed white male who presents with a 14 year history of seizures. The history was obtained primarily from the father due to the patient's short term memory loss (see below ). He had his first seizure when he was 9, in the fourth grade, in the year 1999. He had been sick with the flu when he had the seizure. He was in bed with his father when he started jerking very hard, biting his tongue with blood running down his chin, and this went on for 3-4 minutes. He went limp for a minute then began jerking again for a few seconds. They called the ambulance where he had to be put in a drug-induced coma in [place] to stop the seizures. He was put on an unknown AED at this time. A few days later he had another seizure of the same grand mal type. For the next five years he wa s on many AEDs and had 2-3 grand mal type seizures each week with no aura or incontinence. In 2004 he had left sided brain surgery, which slowed and decreased the intensity of the seizures but did not s top them and also gave him short term memory loss. Now he has roughly 3-4 seizures/month when he gets hot, sweaty, has double vision, and gets stiff and turns his head to the side for roughly 3 minutes but no longer bites his tongue and still does not have incontinence. His post- ictal state lasts for a few minutes where he is very tired and a little confused , and then he returns to baseline. He is see n at [facility] by Dr. Ferrari. He had his new experimental VNS installed on 03/10/2013, and has since healed from the implantation. He presents today to have it tested while he's weened off his AEDs. ROS: Gen: No fever, chills, or fatigue Head: No headache or visual changes Ears: No hearing loss Nose: No rhinorrhea Mouth: No sores or bleeding Resp: No shorness of breath or cough Cardiac: + tachycardia (occasional, with seizures), palpitations GI: +Nausea and + Vomiting (with double vision with seizures), MSK: No myalgias or arthralgias Neuro: No syncope, + seizures Endo: + Heat intolerance, no cold intolerance Psych: + Depression, no anxiety PMH: No significant PMH. No head trauma. PSH: Brain surgery 2004 on his left side Varicose vein surgery twice in 2006 Finger surgery when he broke it at age 5. 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 He had to have an anterior fontanelle operation as an infant because it was not patent. Developmentally normal until brain surgery and now has short term memory loss. Medications: Sertraline 25 mg q d Vimpat 100 mg BID Lamictal 600 mg qd Immunizations: Up to date on all childhood immunizations Had the flu shot this year Allergies: NKDA Family Hx: No family history of seizures. He is an only child. Dad has emphysema, mom is healthy. Social Hx: 1 beer/month No current smoking hx, used to smoke less than one pack per day for 2 months three years ago. Occupational Hx: Works at [employer] roughly one day a week since they cut his hours Physical Exam: Gen: Awake, alert, in no acute distress CV: RRR, no murmurs, gallops, or rubs Resp: Lungs clear to auscultation bilaterally Abdomen: Soft, nontender, nondistended Neuro: CNII-XII grossly intact, sensation grossly intact, finger to nose intact , reflexes 2+ bilaterally MSK: Motor strength 5/5 bilaterally Psych: Mood appropriate, friendly Labs 24hr Labs 04/13 0912 Glucose Lvl 77 BUN 6 L Creatinine Lvl 0.9 Sodium Lvl 141 Potassium Lvl 3.2 L Chloride Lvl 102 CO2 30 AGAP 12.2 Calcium Lvl 9.4 eGFR 119 Total Protein 7.2 Albumin Lvl 4.1 Bili Total 0.4 Bili Direct 0.1 Bili Indirect 0.3 Alk Phos 99 AST 13 ALT 28 Globulin 3.1 A/G Ratio 1.3 Carbamaz Lvl <0.5 L WBC 8.3 RBC 4.67 L Hgb 14.6 Hct 42.0 MCV 89.9 MCH 31.3 H MCHC 34.8 RDW 13.1 Platelet 275 MPV 8.2 Segs 51.9 Monocytes 11.4 Lymphocytes 30.4 Eosinophils 5.6 H Basophils 0.7 Segs-Bands # 4.3 Lymphocytes # 2.5 Monocytes # 1.0 H Eosinophils # 0.5 Basophils # 0.1 Diagnostics 07/2012 EEG: This is an abnormal 23-hour video electroencephalogram due to one left temporal complex partial seizure and occasional left temporal epileptiform dishcarges. A/P: Mr. Chandra is a 23 yo man with PMH significant for GTC seizures presenting to the EMU as an experimental Phase 1 study [employer] VNS. Seizures lamoTRIgine (LaMICtal XR) 300 mg PO Daily Depression sertraline 25 mg PO Daily Electrolytes multivitamin with minerals 1 tab PO Daily DVT Prophylaxis Not needed as pt is actively mobile. Rosa Gale MD Neurology PGY-2 MSO: [id number] Pager: [phone] Patient admitted as part of [employer] E-37 [employer] device trial post- impantation. I have examined this patient with the resident, Dr. Gale, and agree with the documentation and findings as recorded above. I concur with the plan as outlined. Yonny Ferrari MD [facility] [employer] [facility] Neurology Director, [facility] Epilepsy [facility]
--- OUTSIDE RECORDS SUMMARY | 2018-08-02 16:31 | XMS REPORT | Summary of Care ---
:1990 Author Care Team Providers Name Role Phone Sriram Terrell III Primary Care Physician Encounter [facility] Natir_marylu(IRMA) [id number] Date(s): 07/15/13 - 10/13/[address] Physician Attending: Yonny Ferrari MD Reason for Visit RESEARCH Problem List Condition Effective Dates Status Health Status Informant cranial stenosis(Confirmed) 1988 Resolved Depression(Confirmed) Active Hematoma(Confirmed) Active Seizure disorder(Confirmed) Active Varicocele(Confirmed) Resolved Viral encephalitis(Confirmed) 1999 Resolved Allergies, Adverse Reactions, Alerts Substance Reaction Severity Status NKDA Active Medications No data available for this section Medications Administered During Your Visit No data available for this section Immunizations No data available for this section
--- OUTSIDE RECORDS SUMMARY | 2018-08-02 16:31 | XMS REPORT | CCD ---
:[address] [facility] Care Team Providers Name Role Phone Cristian León Referring Provider Sriram Terrell III Primary Care Provider Allergies, Adverse Reactions, Alerts Substance Reaction Status NKDA Active Problem List Condition Effective Dates Status cranial stenosis 1988 Resolved Depression Active Hematoma Active Seizure disorder Active Varicocele Resolved Viral encephalitis 1999 Resolved Medications Medication Instructions Start Date End Date Status [place] 10/325 oral tablet 1 tab, PO, Q4H, for 03/10/2013 03/20/2013 Ordered pain, # 60 tab, 0 Refill(s) Colace 100 mg oral capsule 100 mg=1 cap, PO, BID, 03/10/2013 03/24/2013 Ordered Constipation, # 28 cap, 0 Refill(s) Zofran 4 mg oral tablet 4 mg=1 tab, PO, Q8H, as 03/10/2013 03/24/2013 Ordered needed for nausea/vomiting, # 42 tab, 0 Refill(s) sertraline 0 Refill(s) 03/02/2013 Ordered LaMICtal 0 Refill(s) 03/02/2013 Ordered vancomycin 1 gm, Route: IVPB, Drug 03/10/2013 03/10/2013 Completed form: INJ, ONCE, Dosing Weight 79.545, kg, Start date: 03/10/13 15:44:00, Stop date: 03/10/13 15:44:00 NS + KCL 20mEq/L 1000ml 1,000 mL, Rate: 70 03/10/2013 03/10/2013 Completed (Premix) 1,000 mL ml/hr, Infuse over: 14.3 hr, Route: IV, Dosing Weight 79.545 kg, Total Volume: 1,000, Start date: 03/10/13 2:32:00, Duration: 1 doses or times, Stop date: 03/10/13 16:49:00PREMIX IV - Do Not Alter ceFAZolin 2 gm, 50 mL, Route: 03/10/2013 03/10/2013 Completed IVPB, Drug form: INJ, PRE OP, Start date: 03/10/13 3:00:00, Duration: 1 doses or times, Stop date: 03/11/13 0:00:00 hydrALAZINE 10 mg, 0.5 mL, Route: 03/10/2013 03/10/2013 Discontinued IVP, Drug form: INJ, Q20Min, Dosing Weight 79.545, kg, PRN Elevated BP, Start date: 03/10/13 17:41:00, Duration: 2 doses or times, Stop date: 03/11/13 0:00:00(Same as: Apresoline)Push over 5 minutes naloxone 0.04 mg, 0.1 mL, Route: 03/10/2013 03/10/2013 Discontinued IVP, Drug form: INJ, Q2MIN, Dosing Weight 79.545, kg, PRN Narcotic Reversal, Start date: 03/10/13 17:41:00, Duration: 8 doses or times, Stop date: 03/11/13 0:00:00Same as Narcan labetalol 10 mg, 2 mL, Route: IVP, 03/10/2013 03/10/2013 Discontinued Drug form: INJ, Q5Min, Dosing Weight 79.545, kg, PRN Elevated BP, Start date: 03/10/13 17:41:00, Duration: 5 doses or times, Stop date: 03/11/13 0:00:00 dexamethasone 4 mg, 1 mL, Route: IVP, 03/10/2013 03/10/2013 Discontinued Drug form: INJ, ONCE, Dosing Weight 79.545, kg, PRN Nausea & Vomiting, Start date: 03/10/13 17:41:00Concentration: 4mg/ml morphine Sulfate 2 mg, 1 mL, Route: IVP, 03/10/2013 03/10/2013 Discontinued Drug form: INJ, Q5Min, Dosing Weight 79.545, kg, PRN Pain Score 4-6, Start date: 03/10/13 17:41:00, Duration: 5 doses or times, Stop date: 03/11/13 0:00:00(Same as:MORPhine Sulfate) hydromorphone 0.5 mg, 0.25 mL, Route: 03/10/2013 03/10/2013 Discontinued IVP, Drug form: INJ, Q5Min, Dosing Weight 79.545, kg, PRN Pain Score 7-10, Start date: 03/10/13 17:41:00, Duration: 4 doses or times, Stop date: 03/11/13 0:00:00Same as: Dilaudid flumazenil 0.2 mg, 2 mL, Route: 03/10/2013 03/10/2013 Discontinued IVP, Drug form: INJ, PRN, Dosing Weight 79.545, kg, PRN Benzodiazepine Reversal, Initial dose, Start date: 03/10/13 17:41:00, Duration: 1 day, Stop date: 03/11/13 17:40:00(Same as: Romazicon) diphenhydrAMINE 12.5 mg, 0.25 mL, Route: 03/10/2013 03/10/2013 Discontinued IVP, Drug form: INJ, Q6H, Dosing Weight 79.545, kg, PRN Itching, Start date: 03/10/13 17:41:00, Duration: 1 day, Stop date: 03/11/13 12:00:00(Same as: Benadryl) ondansetron 4 mg, 2 mL, Route: IVP, 03/10/2013 03/10/2013 Discontinued Drug form: INJ, ONCE, Dosing Weight 79.545, kg, PRN Nausea & Vomiting, Start date: 03/10/13 17:41:00(Same as: Zofran) promethazine 6.25 mg, 0.25 mL, Route: 03/10/2013 03/10/2013 Discontinued IVPB, Drug form: INJ, ONCE, Dosing Weight 79.545, kg, PRN Nausea & Vomiting, Start date: 03/10/13 17:41:00Do not give IV push. (Same as: Phenergan) Lyrica 0 Refill(s) 03/02/2013 Ordered Vital Signs Most recent to oldest 1 2 3 [Reference Range]: Height 175.26 cm 175.26 cm (03/10/2013 11:31:00) (03/02/2013 14:01:00) Systolic Blood Pressure 144 mmHg 149 mmHg 168 mmHg [90-140 mmHg] *HI* *HI* *HI* (03/10/2013 18:18:00) (03/10/2013 18:00:00) (03/10/2013 17:45:00) Diastolic Blood Pressure 87 mmHg 90 mmHg 99 mmHg [60-90 mmHg] (03/10/2013 18:18:00) (03/10/2013 18:00:00) *HI* (03/10/2013 17:45:00) Respiratory Rate [14-20 16 BRMIN 11 BRMIN 13 BRMIN BRMIN] (03/10/2013 18:18:00) *LOW* *LOW* (03/10/2013 18:00:00) (03/10/2013 17:45:00) Peripheral Pulse Rate 92 bpm 78 bpm [60-100 bpm] (03/10/2013 18:18:00) (03/10/2013 11:31:00) Weight 79.545 kg 79.545 kg (03/10/2013 11:31:00) (03/02/2013 14:01:00) Results BLOOD BANK RESULTS Most recent to oldest [Reference Range]: 1 ABO/Rh O POS *Unknown* (03/10/2013 11:50:00) Antibody Scrn Negative (03/10/2013 11:50:00) CHEMISTRY Most recent to oldest [Reference Range]: 1 Sodium Lvl [135-145 mEq/L] 140 mEq/L (03/10/2013 11:40:00) Potassium Lvl [3.5-5.1 mEq/L] 3.6 mEq/L (03/10/2013 11:40:00) Chloride Lvl [95-109 mEq/L] 104 mEq/L (03/10/2013 11:40:00) CO2 [24-32 mEq/L] 27 mEq/L (03/10/2013 11:40:00) AGAP [10.0-20.0 mEq/L] 12.6 mEq/L (03/10/2013 11:40:00) Creatinine Lvl [0.5-1.4 mg/dL] 1.0 mg/dL (03/10/2013 11:40:00) eGFR 105 mL/min/1.73m2 1 *NA* (03/10/2013:40:00) BUN [7-22 mg/dL] 12 mg/dL (03/10/2013:40:00) B/C Ratio [6-25] 12 (03/10/2013:40:00) Glucose Lvl [70-99 mg/dL] 76 mg/dL 2 (03/10/2013:40:00) Total Protein [6.4-8.4 g/dL] 7.8 g/dL (03/10/2013:40:00) Albumin Lvl [3.5-5.0 g/dL] 3.8 g/dL (03/10/2013:40:00) Globulin [2.0-4.0 g/dL] 4.0 g/dL (03/10/2013:40:00) A/G Ratio [0.7-1.6] 1.0 (03/10/201340:00) Calcium Lvl [8.5-10.5 mg/dL] 9.5 mg/dL (03/10/2013:40:00) ALT [0-65 unit/L] 33 unit/L (03/10/2013:40:00) AST [0-37 unit/L] 17 unit/L (03/10/2013:40:00) Alk Phos [39-136 unit/L] 106 unit/L (03/10/2013:40:00) Bili Total [0.2-1.3 mg/dL] 0.6 mg/dL (03/10/2013:40:00) 1Result Comment: The eGFR is calculated using [...] values reflect the clinical guidelines of the [place] [employer].HEMATOLOGY Most recent to oldest [Reference Range]: 1 WBC [3.7-10.4 K/CMM] 10.7 K/CMM *HI* (03/10/2013:40:00) RBC [4.70-6.10 M/CMM] 5.10 M/CMM (03/10/2013:40:00) Hgb [14.0-18.0 g/dL] 15.9 g/dL (03/10/2013:40:00) Hct [42.0-54.0 %] 46.2 % (03/10/2013:00) MCV [80.0-94.0 fL] 90.5 fL (03/10/2013:40:00) MCH [27.0-31.0 pg] 31.1 pg *HI* (03/10/2013:40:) MCHC [32.0-36.0 g/dL] 34.4 g/dL (03/10/2013:40:00) RDW [11.5-14.5 %] 13.1 % (03/10/2013:40:00) Platelet [133-450 K/CMM] 281 K/CMM (03/10/2013:40:00) MPV [7.4-10.4 fL] 8.2 fL (03/10/2013:40:00) Segs [45.0-75.0 %] 47.4 % (03/10/2013:40:00) Lymphocytes [20.0-40.0 %] 26.8 % (03/10/2013:40:00) Monocytes [2.0-12.0 %] 10.8 % (03/10/2013:40:00) Eosinophils [0.0-4.0 %] 14.6 % *HI* (03/10/2013:40:00) Basophils [0.0-1.0 %] 0.4 % (03/10/2013:40:00) Segs-Bands # [1.5-8.1 K/CMM] 5.1 K/CMM (03/10/2013 11:40:00) Lymphocytes # [1.0-5.5 K/CMM] 2.9 K/CMM (03/10/2013 11:40:00) Monocytes # [0.0-0.8 K/CMM] 1.2 K/CMM *HI* (03/10/2013 11:40:00) Eosinophils # [0.0-0.5 K/CMM] 1.6 K/CMM *HI* (03/10/2013 11:40:00) PT [12.0-14.7 seconds] 12.9 seconds (03/10/2013 11:40:00) INR [0.85-1.17] 0.98 3 (03/10/2013 11:40:00) PTT [22.9-35.8 seconds] 30.0 seconds 4 (03/10/2013 11:40:00) 3Interpretive Data: RECOMMENDED RANGES FOR PROTIME INR: 2.0-3.0 for most medical and surgical thromboembolic states. 2.5-3.5 for artificial heart valves and recurrent embolism. INR SHOULD BE USED ONLY FOR PATIENTS ON STABLE ANTICOAGULANT THERAPY.4Interpretive Data: Heparin Therapeutic Range: 57 - 92 Seconds Procedures Procedures Date Related Diagnosis Operation Operation ORIF - Open reduction and internal fixation of fracture
--- OUTSIDE RECORDS SUMMARY | 2018-08-02 16:31 | XMS REPORT | Summary of Care ---
:1990 Author Care Team Providers Name Role Phone Sriram Terrell III Primary Care Physician Encounter [facility] [email or web address](IRMA) [id number] Date(s): 09/24/13 - 12/23/[address] Physician Attending: Yonny Ferrari MD Reason [...]
[2018-08-02] MEDS ORDERED: FOSPHENYTOIN PE 1,000 MG in NA CHLORIDE 0.9% 100 ML IV ONE (17:00)
[2018-08-02 17:09] LABS: Absolute Lymphocytes (CBC) 6.2 K/uL (0.7-4.9); Basophils % 0.6 % (0-1.3); Eosinophils % 5.6 % (0-4.4); Hematocrit 50.1 % (39.6-49.0); Lymphocytes % 37.5 % (15.3-44.8); MPV 8.2 fL (7.6-11.3); Monocytes % 6.8 % (3.3-12.3); RBC Red Blood Cell Count 5.16 M/uL (4.33-5.43)
[2018-08-02] MEDS ORDERED: NA CHLORIDE 0.9% 2,000 ML ONE (17:09)
[2018-08-02 17:13] LABS: Protime INR 0.98
--- NOTE | 2018-08-02 17:24 | RAD REPORT ---
EXAM DESCRIPTION: CT - Head C Spine Mpr Wo Con - 08/02/2018 5:07 pm CLINICAL HISTORY: Seizure. Head and neck injury status post fall. Head and neck pain COMPARISON: [address] TECHNIQUE: Computed axial tomography of the head and cervical spine was obtained. Sagittal and coronal reconstruction was performed. All CT scans are performed using dose optimization technique as appropriate and may include automated exposure control or mA/KV adjustment according to patient size. FINDINGS: Craniectomy is again demonstrated. Cystic encephalomalacia right temporal lobe unchanged. The ventricles are normal in caliber. An extra-axial fluid collection is not noted.Fluid within the v isualized sinuses and mastoids is not seen A cervical fracture is not visualized. No dislocation is noted. IMPRESSION: No acute intracranial abnormality is seen. A cervical fracture is not visualized. If the patient continues to have symptoms to suggest intracra nial /spinal cord pathology then MRI would be recommended
--- NOTE | 2018-08-02 17:29 | RAD REPORT ---
EXAM DESCRIPTION: Clarissa Single View08/02/2018 5:16 pm CLINICAL HISTORY: Seizure COMPARISON: April 2017 FINDINGS: A battery pack overlies the left chest. Stimulator device ascends left neck The lungs appear clear of acute infiltrate. The heart is borderline enlarged IMPRESSION: No acute abnormalities displayed
[2018-08-02 17:32] LABS: ALT/SGPT 42 U/L (12-78); AST/SGOT 28 U/L (15-37); Alkaline Phosphatase 147 U/L (45-117); BUN Blood Urea Nitrogen 10 mg/dL (7-18); Bilirubin Direct < 0.1 mg/dL (0-0.2); Bilirubin Total 0.3 mg/dL (0.2-1.0); CKMB Creatine Kinase MB < 1.0 ng/mL (0.3-3.6); Creatine Phosphokinase 138 U/L (39-308); Glucose Level 137 mg/dL (74-106); Lipase 426 U/L (73-393); Potassium 3.4 mmol/L (3.5-5.1); Protein, Total 8.1 g/dL (6.4-8.2); Sodium Level 141 mmol/L (136-145)
[2018-08-02 17:40] LABS: Bicarbonate 9 mmol/L (21-32)
[2018-08-02] MEDS ORDERED: LORazepam 2 MG/ML VIAL ONE ×2 (18:05→18:34)
[2018-08-02 18:06] LABS: Barbiturates NEGATIVE (NEGATIVE); Benzodiazepines POSITIVE (NEGATIVE); Cocaine NEGATIVE (NEGATIVE); METHAMPHETAM NEGATIVE (NEGATIVE); Methadone NEGATIVE (NEGATIVE); Opiates NEGATIVE (NEGATIVE); Phencyclidine NEGATIVE (NEGATIVE); THC Cannibis NEGATIVE (NEGATIVE)
[2018-08-02 18:47] LABS: Urine Amorphous Sediment TRACE /HPF (NONE SEEN); Urine Bacteria <20 /HPF (NONE SEEN); Urine Culture Reflex Order NOT NEEDED; Urine Mucus 1+ /HPF (NONE SEEN); Urine RBC <5 /HPF (NONE SEEN)
[2018-08-02 20:22] LABS: Urine Blood 1+ (NEG); Urine Glucose NEGATIVE (NEG); Urine Protein 2+ (NEG); Urine pH 5.5 (5.0-7.0)
[2018-08-02 21:24] LABS: Potassium 2.8 mmol/L (3.5-5.1)
[2018-08-02] MEDS ORDERED: POTASSIUM 25 MEQ EFFERV TAB ONE (21:42)
[2018-08-02] MEDS ORDERED: KCL 20 MEQ/100 mL IVPB 20 MEQ/100 ML BAG IV ONE (21:43)
[2018-08-02] MEDS ORDERED: NA CHLORIDE 0.9% 500 ML ONE (21:43)
[2018-08-02] MEDS ORDERED: ONDANSETRON 4 MG/2 ML VIAL ONE (21:44)
--- NOTE | 2018-08-03 | ER ---
Nurse's Notes [facility] Name: Jw Alfaro Age: 28 yrs Sex: Male : 1990 Arrival Date: 08/02/2018 Time: 16:20 Bed 6 Private MD: Diagnosis: Epilepsy and recurrent seizures;Dehydration;Hypokalemia Presentation: 08/02 16:20 Presenting complaint: EMS states: SEIZURE x10 MINUTE. Transition of care: patient was bp not received from another setting of care. Onset of symptoms is unknown. Risk Assessment: Do you want to hurt yourself or someone else? Patient reports no desire to harm self or others. Initial Sepsis Screen: Does the patient meet any 2 criteria? HR > 90 bpm. No. Patient's initial sepsis screen is negative. Does the patient have a suspected source of infection? No. Patient's initial sepsis screen is negative. Care prior to arrival: Medication(s) given: 4MG ATIVAN, 2.5MG VERSED IV initiated. 20 GA, in the left antecubital area. 16:20 Method Of Arrival: EMS: [facility] bp 16:20 Acuity: BARTOLO 2 bp Triage Assessment: 16:23 General: Appears in no apparent distress. comfortable, Behavior is unresponsive. Pain: bp Unable to use pain scale. Does not appear to understand pain scale. EENT: No deficits noted. Neuro: Level of Consciousness is post ictal, Oriented to none. Cardiovascular: No deficits noted. Respiratory: Airway is patent Respiratory effort is even, unlabored. GI: No signs and/or symptoms were reported involving the gastrointestinal system. : No signs and/or symptoms were reported regarding the genitourinary system. Derm: No deficits noted. Musculoskeletal: Circulation, motion, and sensation intact. Range of motion: intact in all extremities. 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 - Social history:: Smoking status: unknown. - Ebola Screening: : No symptoms or risks identified at this time. Screenin:26 Abuse screen: Denies threats or abuse. Denies injuries from another. Nutritional bp screening: No deficits noted. Tuberculosis screening: No symptoms or risk factors identified. Fall Risk Fall in past 12 months (25 points). Secondary diagnosis (15 points) seizures, IV access (20 points). Ambulatory Aid- None/Bed Rest/Nurse Assist (0 pts). Gait- Normal/Bed Rest/Wheelchair (0 pts) Mental Status- Overestimates/Forgets Limitations (15 pts.). Total Snider Fall Scale indicates High Risk Score (45 or more points). Fall prevention measures have been instituted. Side Rails Up X 2 Placed Close to Nursing Station Frequent Obs/Assessments Occuring Family Present and informed to notify staff if the need to leave the bedside As available patient and family educated on Fall Prevention Program and Strategies. Assessment: 16:26 General: SEE TRIAGE NOTE. bp 16:46 Reassessment: PER PROVIDER, PT MOVED TO TRAUMA HALLWAY. PT CONTINUES TO BE OBTUNDED AND bp ST ON MONITOR. 17:02 Reassessment: Pt to CT with Business Control Specialist Alejo MCDONOUGH. hb 17:57 Reassessment: Pt very restless, unable to follow commands, family at bedside to help hb keep pt in bed and from pulling lines, JOURNEYMAN PIPE WELDER Gaby notified at bedside, Ativan 1mg IVP administered as ordered. NS bolus infusing at this time. 18:49 Reassessment: Pt incontinent of bowel, very restless, remains postictal, unable to hb follow commands. Family assisted with bed bath and linen change. JOURNEYMAN PIPE WELDER Gaby notified. 19:15 General: Appears uncomfortable, Behavior is fussy, restless. Pain: Unable to use pain jd3 scale. Patient is disoriented. Neuro: Level of Consciousness is awake, confused, Oriented to none. Cardiovascular: Heart tones S1 S2 present Capillary refill < 3 seconds Patient's skin is warm and dry. Respiratory: Airway is patent Respiratory effort is even, unlabored, Respiratory pattern is regular, symmetrical, Breath sounds are clear bilaterally. GI: Abdomen is flat, non-distended, Bowel sounds present X 4 quads. Abd is soft and non tender X 4 quads. Parent/caregiver reports the patient having nausea. : No signs and/or symptoms were reported regarding the genitourinary system. EENT: No signs and/or symptoms were reported regarding the EENT system. Derm: Skin is intact, Skin is dry, Skin is normal, Skin temperature is warm. Musculoskeletal: Range of motion: intact in all extremities. 20:34 Reassessment: Patient appears in no apparent distress at this time. No changes from jd3 previously documented assessment. Patient and/or family updated on plan of care and expected duration. Pain level reassessed. 21:30 Reassessment: Patient appears in no apparent distress at this time. Patient and/or jd3 family updated on plan of care and expected duration. Pain level reassessed. Neuro: Level of Consciousness is awake, obeys commands, lethargic, Oriented to person, situation. 22:30 Reassessment: Patient appears in no apparent distress at this time. No changes from jd3 previously documented assessment. Patient and/or family updated on plan of care and expected duration. Pain level reassessed. Reassessment: Patient appears in no apparent distress at this time. Patient and/or family updated on plan of care and expected duration. Pain level reassessed. Patient is alert, oriented x 3, equal unlabored respirations, skin warm/dry/pink. Neuro: Level of Consciousness is awake, alert, obeys commands, Oriented to person, place, situation. 23:15 Reassessment: Osuna discontinued per provider's order. jd3 23:18 Reassessment: Patient appears in no apparent distress at this time. No changes from jd3 previously documented assessment. Patient and/or family updated on plan of care and expected duration. Pain level reassessed. Patient is alert, oriented x 3, equal unlabored respirations, skin warm/dry/pink. 08/03 00:30 Reassessment: Patient appears in no apparent distress at this time. Patient and/or jd3 family updated on plan of care and expected duration. Pain level reassessed. Patient is alert, oriented x 3, equal unlabored respirations, skin warm/dry/pink. Neuro: Level of Consciousness is awake, alert, obeys commands, Oriented to person, place, time, situation. 01:02 Reassessment: Patient appears in no apparent distress at this time. Patient and/or jd3 family updated on plan of care and expected duration. Pain level reassessed. Patient is alert, oriented x 3, equal unlabored respirations, skin warm/dry/pink. Patient states feeling better. Vital Signs: 08/02 16:23 BP 135 / 71; Pulse 155; Resp 37; Temp 98; Pulse Ox 98% ; Weight 79.38 kg; bp 17:00 BP 146 / 109; Pulse 151; Resp 19; Pulse Ox 100% on 15% Non-rebreather mask; hb 17:45 BP 154 / 75; Pulse 118; Resp 23; Pulse Ox 100% on R/A; hb 21:18 Pulse 116; Resp 19 S; Pulse Ox 100% on R/A; Pain 0/10; jd3 23:14 BP 124 / 84; Pulse 114; Resp 14 S; Pulse Ox 98% on R/A; Pain 0/10; jd3 08/03 00:59 BP 104 / 73; Pulse 100; Resp 17 S; Pulse Ox 97% on R/A; Pain 0/10; jd3 Lorenzo Coma Score: 08/02 16:23 Eye Response: to pain(2). Verbal Response: incomprehensible(2). Motor Response: bp localizes pain(5). Total: 9. ED Course: 16:20 Patient arrived in ED. bp 16:22 Triage completed. bp 16:22 aGby Espinoza FNP-C [facility]. snw 16:22 Jeff Alvarado MD is Attending Physician. snw 16:23 Arm band placed on. bp 16:26 Patient has correct armband on for positive identification. Bed in low position. Call bp light in reach. Side rails up X2. Adult w/ patient. 16:26 Maintain EMS IV. Dressing intact. Good blood return noted. Site clean \T\ dry. Gauge \T\ bp site: 20 GAUGE LEFT AC. 17:00 Seizure precautions initiated. hb 17:02 Renuka Corley, RN is Primary Nurse. hb 17:07 CT completed. Patient tolerated procedure well. Patient moved back from CT. mw3 17:09 CT Head C Spine In Process Unspecified. EDMS 17:16 Chest Single View XRAY In Process Unspecified. EDMS 17:55 UDS Sent. hb 17:56 LFT's Sent. hb 17:56 Lactate Sent. hb 17:56 CPK Sent. hb 17:56 Ckmb Sent. hb 17:56 Basic Metabolic Panel Sent. hb 17:56 Blood Culture Adult (2) Sent. hb 17:56 CBC with Diff Sent. hb 23:57 Jose House MD is Referral Physician. [facility] 08/03 01:00 No provider procedures requiring assistance completed. IV discontinued, intact, jd3 bleeding controlled, No redness/swelling at site. Pressure dressing applied. Administered Medications: 08/02 17:20 Drug: NS 0.9% (30 ml/kg) 30 ml/kg Route: IV; Rate: bolus; Site: right antecubital; hb 17:30 Drug: Fosphenytoin 1 grams Route: IVPB; Site: right antecubital; hb 17:46 Follow up: Response: No adverse reaction; IV Status: Completed infusion; IV Intake: hb 100ml 17:54 Drug: Ativan 1 mg Route: IVP; Site: right antecubital; hb 18:22 Drug: Ativan 2 mg Route: IVP; Site: left forearm; la1 19:20 Follow up: Response: No adverse reaction jd3 21:38 Drug: Potassium Chloride 20 mEq Route: IV; Rate: calculated rate; Site: right forearm; jd3 08/03 00:45 Follow up: Response: No adverse reaction; IV Status: Completed infusion; IV Intake: jd3 100ml 08/02 21:40 Drug: Zofran 4 mg Route: IVP; Site: right forearm; jd3 22:40 Follow up: Response: No adverse reaction jd3 21:40 Drug: NS 0.9% 500 ml Route: IV; Rate: calculated rate; Site: right forearm; jd3 08/03 01:00 Follow up: Response: No adverse reaction; IV Status: Completed infusion; IV Intake: jd3 500ml 08/02 21:51 Drug: Potassium Effervescent Tablet 50 mEq Route: PO; jd3 22:50 Follow up: Response: No adverse reaction jd3 Intake: 17:46 IV: 100ml; Total: 100ml. hb 08/03 00:45 IV: 100ml; Total: 200ml. jd3 01:00 IV: 500ml; Total: 700ml. jd3 Outcome: 08/02 23:58 Discharge ordered by . [facility] 08/03 01:02 Discharged to home via wheelchair, with family. jd3 Condition: stable Discharge instructions given to patient, family, Instructed on discharge instructions, follow up and referral plans. Demonstrated understanding of instructions, follow-up care. 01:04 Patient left the ED. jd3 Signatures: Dispatcher [employer] EDMS Gaby Espinoza, PATHOLOGY TECHNOLOGIST-C PATHOLOGY TECHNOLOGIST-Csnw Houston Garcia RN RN la1 Renuka Corley RN RN hb Madan Vargas RN RN jGabriel Garza RN RN bp Willis, Michelle mw3 Corrections: (The following items were deleted from the chart) 08/02 17:06 16:23 Home Meds: Lamictal 100 mg Oral tab; bp hb 17:07 17:06 BP 146 / 109; Pulse 151bpm; Resp 19bpm; Pulse Ox 100% 02 15% Non-rebreather mask; hb hb
--- NOTE | 2018-08-03 00:01 | EDPHYS ---
Physician Documentation [facility] Name: Jw Alfaro Age: 28 yrs Sex: Male : 1990 Arrival Date: 08/02/2018 Time: 16:20 Bed 6 Private MD: ED Physician Jeff Alvarado HPI: 08/02 16:53 This 28 yrs old Male presents to ER via EMS with complaints of Seizure. snw 16:53 The patient presents after having a possible seizure episode, the episode(s) was snw witnessed, found pt in the road near his home. Character of seizure(s): Loss of consciousness: the patient experienced loss of consciousness. Seizure onset: just prior to arrival. Context: the seizure(s) was witnessed, by no one, occurred at home, occurred while the patient was unknown. Contributing factors: unknown. Seizure Hx: Last seizure: The patient's last seizure June 24 with severe tonic clonic seizure. EMS care: Ativan, supplemental oxygen, versed. Current symptoms: AMS, unresponsive with tachycardia. The patient has experienced similar episodes in the past. It is unknown whether or not the patient has recently seen a physician. 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 - Social history:: Smoking status: unknown. - Ebola Screening: : No symptoms or risks identified at this time. ROS: 16:52 Constitutional: Positive for found in the road, unresponsive. snw 16:52 Neuro: Positive for altered mental status, seizure activity. 16:52 Unable to obtain ROS due to altered mental status, obtunded state. snw Exam: 16:48 ENT: Nares patent. No nasal discharge, no septal abnormalities noted. Tympanic snw membranes are normal and external auditory canals are clear. Oropharynx with no redness, swelling, or masses, exudates, or evidence of obstruction, uvula midline. Mucous membranes moist. Neck: Trachea midline, no thyromegaly or masses palpated, and no cervical lymphadenopathy. Supple, full range of motion without nuchal rigidity, or vertebral point tenderness. No Meningismus. Chest/axilla: Normal chest wall appearance and motion. Nontender with no deformity. No lesions are appreciated. 16:48 Abdomen/GI: Soft, non-tender, with normal bowel sounds. No distension or tympany. No guarding or rebound. No evidence of tenderness throughout. Back: No spinal tenderness. No costovertebral tenderness. Full range of motion. Skin: Warm, dry with normal turgor. Normal color with no rashes, no lesions, and no evidence of cellulitis. 16:48 Constitutional: The patient appears listless, in obvious distress, restless. 16:48 Head/face: s/p temporal lobectomy. 16:48 Eyes: Pupils: equal, round, and reactive to light and accomodation, dilated, bilaterally, right pupil is approximately 5 mm(s), left pupil is approximately 5 mm(s), Extraocular movements: up-espitia gaze. 16:48 Respiratory: the patient does not display signs of respiratory distress, Respirations: normal, Breath sounds: bronchial sounds, that are moderate. 16:48 Musculoskeletal/extremity: Extremities: flaccid, Circulation is intact in all extremities. 16:48 Neuro: Orientation: unable to test, the patient is post-ictal, seizure activity, no tonic clonic movements, + upward gaze deviation. Vital Signs: 16:23 BP 135 / 71; Pulse 155; Resp 37; Temp 98; Pulse Ox 98% ; Weight 79.38 kg; bp 17:00 BP 146 / 109; Pulse 151; Resp 19; Pulse Ox 100% on 15% Non-rebreather mask; hb 17:45 BP 154 / 75; Pulse 118; Resp 23; Pulse Ox 100% on R/A; hb 21:18 Pulse 116; Resp 19 S; Pulse Ox 100% on R/A; Pain 0/10; jd3 23:14 BP 124 / 84; Pulse 114; Resp 14 S; Pulse Ox 98% on R/A; Pain 0/10; jd3 17 00:59 BP 104 / 73; Pulse 100; Resp 17 S; Pulse Ox 97% on R/A; Pain 0/10; jd3 Lorenzo Coma Score: 08/02 16:23 Eye Response: to pain(2). Verbal Response: incomprehensible(2). Motor Response: bp localizes pain(5). Total: 9. MDM: 16:35 Patient medically screened. snw 18:00 Physician consultation: Jose House MD was called at 18:00, was contacted at 18:00, snw regarding consult, need to evaluate the patient as soon as possible, . 19:42 Data reviewed: vital signs, nurses notes, EMS record. Data interpreted: Pulse oximetry: snw on room air is 100 %. Interpretation: normal. Counseling: I had a detailed discussion with the patient and/or guardian regarding: the historical points, exam findings, and any diagnostic results supporting the discharge/admit diagnosis, lab results, radiology results, the need for further work-up and treatment in the hospital. Response to treatment: the patient's symptoms have mildly improved after treatment. Physician consultation:. 19:46 Physician consultation: Jose House MD was called at 19:47, was contacted at 19:47, snw regarding admission, to the medical/surgical unit. 19:47 Response to treatment: the patient's symptoms have markedly improved after treatment, snw Pt family prefers to take pt home. Refusal of service: The patient/guardian displays adequate decision making capability and despite a detailed discussion of alternatives, benefits, risks, and consequences refuses: Admission to the hospital for further work-up and treatment, pt family prefers to take pt home as he is improving. [facility] ED course: Dr. Griffin evaluated pt and spoke with family regarding admission. As pt is improved somewhat, the family declines admission and the pt will be discharged.. 22:32 Awaiting: potassium infusion. snw 23:59 ED course: Pt returned to baseline. Pt family wanting to take pt home.. snw 08/02 16:44 Order name: UDS snw 08/02 16:44 Order name: Basic Metabolic Panel snw 08/02 16:44 Order name: Blood Culture Adult (2) snw 08/02 16:44 Order name: CBC with Diff snw 08/02 16:44 Order name: Ckmb snw 08/02 16:44 Order name: CPK snw 08/02 16:44 Order name: Lactate sn 08/02 16:44 Order name: LFT's [facility] 08/02 16:44 Order name: Lipase; Complete Time: 18:02 [facility] 08/02 16:44 Order name: Procalcitonin; Complete Time: 18:11 [facility] 08/02 16:44 Order name: Protime (+inr); Complete Time: 17:17 sn 08/02 16:44 Order name: Ptt, Activated; Complete Time: 17:17 w 08/02 16:44 Order name: Urine Microscopic Only; Complete Time: 18:49 w 08/02 16:46 Order name: Urine Drug Screen; Complete Time: 18:11 [facility] 08/02 16:44 Order name: CT Head C Spine; Complete Time: 17:27 [facility] 08/02 16:44 Order name: Chest Single View XRAY; Complete Time: 17:39 [facility] 08/02 16:46 Order name: Basic Metabolic Panel; Complete Time: 18:02 [facility] 08/02 16:46 Order name: Blood Culture [facility] 08/02 16:46 Order name: CBC with Automated Diff; Complete Time: 17:15 [facility] 08/02 16:46 Order name: CKMB Creatine Kinase MB; Complete Time: 18:02 [facility] 08/02 16:47 Order name: Creatine Phosphokinase; Complete Time: 18:02 [facility] 08/02 16:47 Order name: Lactate; Complete Time: 18:11 [facility] 08/02 16:47 Order name: Liver (Hepatic) Function; Complete Time: 18:02 [facility] 08/02 17:58 Order name: Urine Dipstick--Ancillary (enter results) 08/02 20:00 Order name: Chem 7: post completion of bolus; Complete Time: 21:27 [facility] 08/02 20:00 Order name: Lactate: post completion of bolus; Complete Time: 21:25 [facility] 08/02 16:44 Order name: Misc. Order: nasal trumpet; Complete Time: 17:56 snw 08/02 16:44 Order name: Osuna; Complete Time: 17:55 snw 08/02 16:44 Order name: Accucheck; Complete Time: 17:54 snw 08/02 16:44 Order name: Cardiac monitoring; Complete Time: 17:55 snw 08/02 16:44 Order name: EKG - Nurse/Tech; Complete Time: 17:54 snw 08/02 16:44 Order name: IV Saline Lock - Large Bore; Complete Time: 17:54 snw 08/02 16:44 Order name: Labs collected and sent; Complete Time: 17:54 snw 08/02 16:44 Order name: O2 Per Protocol; Complete Time: 17:54 snw 08/02 16:44 Order name: O2 Sat Monitoring; Complete Time: 17:54 snw 08/02 16:44 Order name: Urine Dipstick-Ancillary (obtain specimen); Complete Time: 17:54 snw 08/02 16:44 Order name: Seizure Precautions; Complete Time: 17:53 snw Administered Medications: 17:20 Drug: NS 0.9% (30 ml/kg) 30 ml/kg Route: IV; Rate: bolus; Site: right antecubital; hb 17:30 Drug: Fosphenytoin 1 grams Route: IVPB; Site: right antecubital; hb 17:46 Follow up: Response: No adverse reaction; IV Status: Completed infusion; IV Intake: hb 100ml 17:54 Drug: Ativan 1 mg Route: IVP; Site: right antecubital; hb 18:22 Drug: Ativan 2 mg Route: IVP; Site: left forearm; la1 19:20 Follow up: Response: No adverse reaction jd3 21:38 Drug: Potassium Chloride 20 mEq Route: IV; Rate: calculated rate; Site: right forearm; jd3 08/03 00:45 Follow up: Response: No adverse reaction; IV Status: Completed infusion; IV Intake: jd3 100ml 08/02 21:40 Drug: Zofran 4 mg Route: IVP; Site: right forearm; jd3 22:40 Follow up: Response: No adverse reaction jd3 21:40 Drug: NS 0.9% 500 ml Route: IV; Rate: calculated rate; Site: right forearm; jd3 08/03 01:00 Follow up: Response: No adverse reaction; IV Status: Completed infusion; IV Intake: jd3 500ml 08/02 21:51 Drug: Potassium Effervescent Tablet 50 mEq Route: PO; jd3 22:50 Follow up: Response: No adverse reaction jd3 Disposition: 06/16/19 23:58 Discharged to Home. Impression: Epilepsy and recurrent seizures, Dehydration, Hypokalemia. - Condition is Stable. - Discharge Instructions: Dehydration, Adult, Potassium Content of Foods, Seizure, Adult, Hypokalemia, Rehydration, Adult. - Medication Reconciliation Form, Thank You Letter, Antibiotic Education, Prescription Opioid Use form. - Follow up: Jose House MD; When: Tomorrow; Reason: Recheck today's complaints, Continuance of care, Re-evaluation by your physician. Addendum: 08/04/2018 02:56 Co-signature as Attending Physician, Jeff Alvarado MD. g s Signatures: Dispatcher [employer] EDMS Gaby Espinoza, SPECIAL PROCEDURE TECH-C SPECIAL PROCEDURE TECH-Csnw Houston Garcia RN RN la1 Renuka Corley RN RN Jeff Alvarado MD MD gs Madan Vargas RN RN jd3 Gabriel Randall RN RN bp Corrections: (The following items were deleted from the chart) 08/02 17:06 16:23 Home Meds: Lamictal 100 mg Oral tab; bp 08/03 01:04 08/02 23:58 08/02/2018 23:58 Discharged to Home. Impression: Epilepsy and recurrent jd3 seizures; Dehydration; Hypokalemia. Condition is Stable. Discharge Instructions: Dehydration, Adult, Potassium Content of Foods, Seizure, Adult, Hypokalemia, Rehydration, Adult. Forms are Medication Reconciliation Form, Thank You Letter, Antibiotic Education, Prescription Opioid Use. Follow up: Jose House; When: Tomorrow; Reason: Recheck today's complaints, Continuance of care, Re-evaluation by your physician. snw
== END 2018-08-03 01:04 | disposition home or self-care (01) ==
LOC: ER 16:16
DX: E86.0 Dehydration (principal); G40.802 Other epilepsy, not intractable, without status epilepticus; E87.6 Hypokalemia
CPT/HCPCS: 87040 ×2; 85025; 80048 ×2; 36415; 82550; 85610; 80076; 80307 ×8; 83605 ×2; 85730; 82553; 83690; 84145; 70450; 72125; 71045; 99284; Q2009; J7030; J2405; 81003; 81015

== ENCOUNTER 2021-02-09 01:16 | Emergency (ER) | payer OTHER ==
[~2021-02-09 01:16] MED LIST: RSI MEDICATION KIT IV ONE
[2021-02-09] MEDS ORDERED: ROCURONIUM 50 MG/5 ML VIAL IV ONE (01:17)
[2021-02-09] MEDS ORDERED: ETOMIDATE 20 MG/10 ML VIAL IV ONE (01:17)
--- OUTSIDE RECORDS SUMMARY | 2021-02-09 01:25 | XMS REPORT | Continuity of Care Document ---
:1990 Author Organization [facility] t Address [address] [place] [address] Care Team Providers Name Role Phone Charisma MATHIS, Melanie Primary Care Physician Melanie ZAFAR Attending Clinician Unavailable Sudhir MAYEN Attending Clinician Unavailable 2, Lab Attending Clinician Unavailable Sudhir Mayen MD Attending Clinician [facility] Attending Clinician Unavailable ALEX Attending Clinician Unavailable JAH NICK Attending Clinician Unavailable Payers Payer Name Policy Type Policy Number Effective Date Expiration Date S abhishek MEDICARE PART A [id number] 2011 \\T\\ B 00:00:00 Problems Condition Condition Condition Status Onset Resolution Last Treating Co mments Source Name Details Category Date Date Treatment Clinician Date Hyperchole Hyperchole Disease Active 2020-02 U amber sterolemia sterolemia 0-06 it y of 00:00: Medical Branch Renal Renal Disease Active 2020-02 Univers dysfunctio dysfunctio 0-06 it y of n n 00:00: [place] [facility] Essential Essential Disease Active Uni vers hypertensi hypertensi 8-17 it y of on on 00:00: Medical Branch History of History of Disease Active U nivers hypokalemi hypokalemi 8-17 it y of a a 00:00: [place] [facility] Seizure Seizure Disease Active Overview: Univ ers disorder disorder 6-30 Formattin ity of 00:00: g of this note Medical might be Branch different from the original. Added automatic ally from request for surgery [id number] Slurred Slurred Disease Active Univers speech speech 08-15 ity of 00:00: [place] 00 Medical Branch Diplopia Diplopia Disease Active Unive rs 08-14 ity of 00:00: [place] 00 Medical Branch SEIZURES Diagnosis Active 2016-08-23 M emoria 08-23 23:24:00 l SEIZURES 00:00: Jim fry 00 Active 08/23/2016 [facility] EPILEPSY Diagnosis Active 2016-08-27 M emoria WITH 08-23 07:16:00 l STATUS EPILEPSY 00:00: Jim fry EPILEPTICU WITH 00 S STATUS EPILEPTICU S Active 08/23/2016 [facility] MICHELLE Diagnosis Active 2016-08-23 Memoria BILLING 08-23 23:30:00 l LFLT #3314 00:00: Jim fry MICHELLE 00 BILLING LFLT #3314 Active 08/23/2016 [facility] STATUS Diagnosis Active 2016-08-19 Mem oria EPLLEPTICU 08-06 08:50:00 l S STATUS 00:00: Kobi EPLLEPTICU 00 S Active 08/06/2016 [facility] LOCALIZATI Diagnosis Active 2014-10-07 Memoria ON-RELATED 09-14 07:23:00 l SYMPTOMATI 00:00: Jim fry C EPILEPS LOCALIZATI 00 ON-RELATED SYMPTOMATI C EPILEPS Active 09/14/2014 [facility] INTRACTABL Diagnosis Active 2013-04-21 Memoria E SEIZURE 04-09 21:46:00 l 09:00: Caroline INTRACTABL 00 E SEIZURE Active 04/09/2013 [facility] HEMATOMA Diagnosis Active 2013-03-12 M emoria 03-11 13:20:00 l HEMATOMA 00:00: Jim n 00 Active 03/11/2013 [facility] 345.41 Diagnosis Active 2012-07-24 Mem oria 5 09:30:00 l 345.41 00:00: Caroline 00 Active 06/17/2012 [facility] ADHD ADHD Disease Active Overview: Univer s (attention (attention 02-17 Formattin ity of deficit deficit 00:00: g of this [place] hyperactiv hyperactiv 00 note Me dical ity ity might be Branch disorder) disorder) different from the original. Not a concern Depression Depression Disease Active U nivers ity [facility] Anxiety Anxiety Disease Active Univers ity [facility] Allergic Allergic Disease Active Unive rs rhinitis rhinitis ity [facility] Varicocele Problem Resolve 2016-08-29 Memoria (disorder) d 01:16:11 l Kobi Varicocele (disorder) Resolved Problem 08/29/2016 [facility] Hematoma Problem Active 2016-08-29 Mem oria (disorder) 01:16:11 l Hematoma Jim n (disorder) Active Problem 08/29/2016 [facility] SUBDURAL Diagnosis Active 2013-03-12 M emoria HEMORRHAGE 13:20:00 l SUBDURAL Jim n HEMORRHAGE Active [facility] PSYMOTR Diagnosis Active 2013-03-11 Me moria EPIL W 14:01:00 l INTR EPIL [place] Herm dahlia EPIL W INTR EPIL Active [facility] FEBRILE Diagnosis Active 2014-10-07 Me moria CONVULSION 07:23:00 l S NOS FEBRILE Caroline CONVULSION S NOS Active [facility] RESEARCH Diagnosis Active 2013-09-23 M emoria 09:23:00 l RESEARCH Jim n Active [facility] EPILEPSY, Diagnosis Active 2016-08-27 Memoria UNSP, NOT 07:16:00 l INTRACTABL Jim n E, WITH ST EPILEPSY, UNSP, NOT INTRACTABL E, WITH ST Active [facility] Viral Problem Resolve 2016-08-29 2016-08-29 Memoria encephalit d 02-17 01:16:11 01:16:11 l is Viral 00:00: Caroline (disorder) encephalit 00 is (disorder) Resolved 02/17/1999 Problem 08/29/2016 [facility] cranial Problem Resolve 2013-12-25 2013-12-25 Memoria stenosis(C d 02-17 19:07:54 19:07:54 l onfirmed) cranial 00:00: Herm dahlia stenosis(C 00 onfirmed) Resolved 02/18/1988 Problem 12/25/2013 [facility] cranial Problem Resolve 2013-03-15 2013-03-15 Memoria stenosis d 02-17 21:17:18 21:17:18 l cranial 00:00: Kobi stenosis 00 Resolved 02/18/1988 Problem 03/15/2013 [facility] Allergies, Adverse Reactions, Alerts Allergy Allergy Status Severity Reaction(s) Onset Inactive Treating Comm ents Source Name Type Date Date Clinician NO KNOWN Drug Active Univers ALLERGIE Class ity of S [facility] Social History Social Habit Start Date Stop Date Quantity Comments Source Exposure to Not sure [facility] SARS-CoV-2 [facility] (event) Oto Alcohol intake 2020-12-07 2020-12-07 Lifetime University of 00:00:00 00:00:00 non-drinker [facility] (finding) Oto Tobacco use and 2020-08-17 2020-08-17 Never used Universit y of exposure 00:00:00 00:00:00 [facility] Social History 2016-08-06 2016-08-06 [facility] sandy 23:30:06 23:30:06 Sex [birth year] Universit y of 00:00:00 00:00:00 [facility] Smoking Status Start Date Stop Date Source Never smoker [facility] Medications Ordered Filled Start Stop Current Ordering Indication Dosage Frequency Signature Comments Components Source Medication Medication Date Date Medication? Clinician (SIG) Name Name zonisamide 2020-02 Yes [id number] 50mg Take 1 U nivers 50 mg 2-08 capsule by ity of capsule 00:00: mouth at [place] [address] bedtime. Medical Branch zonisamide 2020-02 Yes [id number] 50mg Take 1 U nivers 50 mg 2-08 capsule by ity of capsule 00:00: mouth at [place] [address] bedtime. Medical Branch lamoTRIgine 2020-02 Yes [id number] 300mg Take 2 Univers 150 mg 0-21 tablets by ity of tablet 00:00: mouth 2 [place] 00 (two) Medical times Branch daily. levETIRAcet 2020-02 Yes [id number] 1500mg Take 2 Univers am 750 mg 0-21 tablets by ity of tablet 00:00: mouth 2 [place] (two) Medical times Branch daily. zonisamide 2020-02 Yes [id number] 300mg Take 3 Univers 100 mg 0-21 capsules ity of capsule 00:00: [facility] Branch daily. lamoTRIgine 2020-02 Yes [id number] 300mg Take 2 Univers 150 mg 0-21 tablets by ity of tablet 00:00: mouth (two) Medical times Branch daily. levETIRAcet 2020-02 Yes [id number] 1500mg Take 2 Univers am 750 mg 0-21 tablets by ity of tablet 00:00: mouth 2 (two) Medical times Branch daily. zonisamide 2020-02 Yes [id number] 300mg Take 3 Univers 100 mg 0-21 capsules ity of capsule 00:00: [place] ([place] times Branch daily. lamoTRIgine 2020-02 Yes [id number] 300mg Take 2 Univers 150 mg 0-21 tablets by ity of tablet 00:00: mouth (two) Medical times Branch daily. levETIRAcet 2020-02 Yes [id number] 1500mg Take 2 Univers am 750 mg 0-21 tablets by ity of tablet 00:00: mouth (two) Medical times Branch daily. zonisamide 2020-02 Yes [id number] 300mg Take 3 Univers 100 mg 0-21 capsules ity of capsule 00:00: by mouth 2 s (two) Medical times Branch daily. lamoTRIgine 2020-02 Yes [id number] 300mg Take 2 Univers 150 mg 0-21 tablets by ity of tablet 00:00: mouth 2 (two) Medical times Branch daily. levETIRAcet 2020-02 Yes [id number] 1500mg Take 2 Univers am 750 mg 0-21 tablets by ity of tablet 00:00: mouth (two) Medical times Branch daily. zonisamide 2020-02 Yes [id number] 300mg Take 3 Univers 100 mg 0-21 capsules ity of capsule 00:00: [place] mouth 2 [place] (two) Medical times Branch daily. telmisartan 2020-02 Yes [id number] 20mg Take 0.5 Univers 40 mg 0-06 tablets by ity of tablet 00:00: mouth 00 daily. Medical Branch pravastatin 2020-02 Yes [id number] 10mg Take 1 Univers 10 mg 0-06 tablet by ity of tablet 00:00: mouth at 00 bedtime. Medical Branch telmisartan 2020-02 Yes [id number] 20mg Take 0.5 Univers 40 mg 0-06 tablets by ity of tablet 00:00: mouth [place] 00 daily. Medical Branch pravastatin 2020-02 Yes [id number] 10mg Take 1 Univers 10 mg 0-06 tablet by ity of tablet 00:00: mouth at [place] 00 bedtime. Medical Branch telmisartan 2020-02 Yes [id number] 20mg Take 0.5 Univers 40 mg 0-06 tablets by ity of tablet 00:00: mouth [place] 00 daily. Medical Branch pravastatin 2020-02 Yes [id number] 10mg Take 1 Univers 10 mg 0-06 tablet by ity of tablet 00:00: mouth at [place] 00 bedtime. Medical Branch telmisartan 2020-02 Yes [id number] 20mg Take 0.5 Univers 40 mg 0-06 tablets by ity of tablet 00:00: mouth [place] 00 daily. Medical Branch pravastatin 2020-02 Yes [id number] 10mg Take 1 Univers 10 mg 0-06 tablet by ity of tablet 00:00: mouth at [place] 00 bedtime. Medical Branch lamoTRIgine 2020- No [id number] 300mg Take 2 Univers 150 mg 7-15 10-21 tablets by ity of tablet 00:00: 00:00 mouth 2 [place] 00 :00 (two) Medical times Branch daily. levETIRAcet 2020- No [id number] 1500mg Take 2 Univers am 750 mg 7-15 10-21 tablets by ity of tablet 00:00: 00:00 mouth 2 [place] 00 :00 (two) Medical times Branch daily. zonisamide 2020- No [id number] 300mg Take 3 Univers 100 mg 7-15 10-21 capsules ity of capsule 00:00: 00:00 by mouth 2 [place] as 00 :00 (two) Medical times Branch daily. LORazepam Yes .5mg Take 0.5 Univ ers 0.5 mg 7-14 mg by ity of tablet 10:19: mouth as [place] 52 needed. Medical Branch omega-3/dha Yes Take 1 Univ ers /epa/dpa/fi 7-14 TAB-CAP/M2 it y of sh oil 10:19: by mouth [place] (OMEGA-3 52 daily. Medical 2100 ORAL) Branch calcium Yes Take 1 Univers carb/magnes 7-14 TAB-CAP/M2 it y of ium ox,carb 10:19: by mouth 2 [place] (ELA-MAG 52 (two) Medical ORAL) times Branch daily. SERTraline Yes 50mg Take 50 mg U nivers 50 mg 7-14 by mouth ity of tablet 10:19: at [place] 52 bedtime. Medical Branch LORazepam Yes .5mg Take 0.5 Univ ers 0.5 mg 7-14 mg by ity of tablet 10:19: mouth as [place] 52 needed. Medical Branch omega-3/dha Yes Take 1 Univ ers /epa/dpa/fi 7-14 TAB-CAP/M2 it y of sh oil 10:19: by mouth [place] (OMEGA-3 52 daily. Medical 2100 ORAL) Branch calcium Yes Take 1 Univers carb/magnes 7-14 TAB-CAP/M2 it y of ium ox,carb 10:19: by mouth 2 [place] (ELA-MAG 52 (two) Medical ORAL) times Branch daily. SERTraline Yes 50mg Take 50 mg U nivers 50 mg 7-14 by mouth ity of tablet 10:19: at [place] 52 bedtime. Medical Branch LORazepam Yes .5mg Take 0.5 Univ ers 0.5 mg 7-14 mg by ity of tablet 10:19: mouth as [place] 52 needed. Medical Branch omega-3/dha Yes Take 1 Univ ers /epa/dpa/fi 7-14 TAB-CAP/M2 it y of sh oil 10:19: by mouth [place] (OMEGA-3 52 daily. Medical 2100 ORAL) Branch calcium Yes Take 1 Univers carb/magnes 7-14 TAB-CAP/M2 it y of ium ox,carb 10:19: by mouth 2 [place] (ELA-MAG 52 (two) Medical ORAL) times Branch daily. SERTraline Yes 50mg Take 50 mg U nivers 50 mg 7-14 by mouth ity of tablet 10:19: at [place] 52 bedtime. Medical Branch LORazepam Yes .5mg Take 0.5 Univ ers 0.5 mg 7-14 mg by ity of tablet 10:19: mouth as [place] 52 needed. Medical Branch omega-3/dha Yes Take 1 Univ ers /epa/dpa/fi 7-14 TAB-CAP/M2 it y of sh oil 10:19: by mouth [place] (OMEGA-3 52 daily. Medical 2100 ORAL) Branch calcium Yes Take 1 Univers carb/magnes 7-14 TAB-CAP/M2 it y of ium ox,carb 10:19: by mouth 2 [place] (ELA-MAG 52 (two) Medical ORAL) times Branch daily. SERTraline Yes 50mg Take 50 mg U nivers 50 mg -14 by mouth ity of tablet 10:19: at [place] 52 bedtime. Medical Branch Sertraline No Notes: Memor ia 08-26 (Same as: l 14:00: Zoloft) Caroline 00 Potassium No Notes: Memori a Chloride 08-26 (Same as: l 1.33 MEQ/ML 12:48: Potassium H ermann Oral 00 Chloride) Solution Sodium No 500 mL, Memoria Chloride 08-25 500 ml/hr, l 0.154 23:28: Infuse Kobi MEQ/ML 00 Over: 1 Injectable hr, Route: Solution IV, 500, Drug form: INJ, ONCE, Priority: STAT, Dosing Weight 71.8 kg, Start date: 08/25/16 18:28:00 CDT, Duration: 1 doses or times, Stop date: 08/25/16 18:28:00 CDT zonisamide Yes 300 mg = 3 M emoria 100 mg oral 7-09 cap, PO, l capsule 18:54: Q12H, # Caroline 00 180 cap, 3 Refill(s), Pharmacy: [facility] [place] lamotrigine Yes 300 mg = 3 Memoria 100 MG Oral 7-09 tab, PO, l Tablet 18:54: BID, # 180 Vanessa nn 00 tab, 3 Refill(s), Pharmacy: [facility] [place] perampanel Yes 2 mg = 1 Mem oria 2 mg oral 7-09 tab, PO, l tablet 18:54: Bedtime, # Vanessa nn 00 30 tab, 3 Refill(s) sennosides, No Notes: Bol[place] denisse [facility] 08-25 (Same as: l 14:00: Senokot) Caroline 00 Docusate No Notes: Memoria 08-25 (Same as: l 14:00: Colace) (Do Not Crush) perampanel No Notes: Memor ia 08-25 (Same as: l 02:00: Fycompa) Non-formul carlie Fycompa No Fycompa, 2 [place] denisse 7-09 mg, Route: l 02:00: PO, Caroline Bedtime, 08/24/16 21:00:00 CDT, Duration: 30 day, Stop date: 09/22/16 21:00:00 CDT Tylenol No Notes: Do Memor ia 08-25 not exceed l 01:12: 4 gm/day. (Same as: Tylenol) Phenytoin No 50 mg, Memori a 08-24 Route: PO, l 22:00: BID, Dosing Weight 71.8, kg, Start date: 08/24/16 17:00:00 CDT, Duration: 30 day, Stop date: 09/23/16 9:00:00 CDT Phenytoin No 50 mg, Memori a 08-24 Route: PO, l 21:00: Drug form: CAP, Q8H, Dosing Weight 71.8, kg, Start date: 08/24/16 16:00:00 CDT, Duration: 30 day, Stop date: 09/23/16 8:00:00 CDT Phenytoin No Notes: Memori a 08-24 (Same as: l 15:00: Dilantin) Do not infuse greater than 50 mg/min. MEDICATION WASTE Product Size: 100 mg Product Wasted: ___ mg zonisamide No Notes: Memor ia 08-24 Contraindi l 14:00: cated in patients with hypersensi tivity to sulfonamid es. (Same As: Zonegran) lamotrigine No Notes: Bolivar denisse -08 (Same l 14:00: as:LaMICta l) heparin No Notes: Memoria 08-24 porcine l 13:00: heparin [place] 00 Calcium No Notes: Memoria Carbonate 08-24 (Same As: l 500 MG 10:58: Tums) Kobi Chewable 00 Calcium Tablet Carbonate 500 mg = 200 mg elemental calcium Dose = mg calcium carbonate ( mg elemental calcium) potassium No Notes: Memori a phosphate + 08-24 (Same as: l sodium 10:58: K [place] chloride 00 Phosphate. 0.9% INJ ) 1 mMol 250 mL phoshate has 1.47 mEq potassium Infuse over 4 hours potassium No Notes: Memori a phosphate-s 08-24 (Same as: l odium 10:58: Phos-NaK) Caroline phosphate 00 Each 1.5 250 mg-280 gm pkt has mg-160 mg 250mg oral powder phosphorou for s. Mix reconstitut w/2.5oz ion water and stir. Magnesium No Notes: Memori a Sulfate 08-24 WASTE: F/P l 10:58: - Sink; E Kobi - Municipal Trash Bin Magnesium No Notes: Memori a Oxide 08-24 (Same as: l 10:58: Mag-Ox Kobi 00 400) Magnesium oxide 802wx=783d g elemental magnesium Dose=____m g magnesium oxide (___mg elemental magnesium) Calcium No Notes: Memoria Gluconate 08-24 WASTE: F/P l 10:58: - Sink; E Kobi - Municipal Trash Bin potassium No Notes: Memori a chloride 08-24 (Same as: l 10:58: Potassium Kobi 00 Chloride) sodium No 15 mmol, 5 Memor ia phosphate + 7-08 mL, Route: l sodium 10:58: IVPB, PRN, Vanessa nn chloride 00 Dosing 0.9% INJ Weight 250 mL 71.8, kg, PRN Abnormal Lab Result, Start date: 08/24/16 5:58:00 CDT, Duration: 30 day, Stop date: 09/23/16 5:57:00 CDT, FOR ICU USE ONLY sodium No 1,000 mL, Memori a chloride 7-08 Rate: 100 l 0.9% 1000 10:57: ml/hr, Jim n ml INJ 00 Infuse 1,000 mL over: 10 hr, Route: IV, Dosing Weight 71.8 kg, Total Volume: 1,000, Start date: 08/24/16 5:57:00 CDT, Duration: 30 day, Stop date: 09/23/16 5:56:00 CDT Sodium 2017-0 No 1,000 mL, Memori a Chloride 08 1,000 l 0.154 10:57: ml/hr, Kobi MEQ/ML 00 Infuse Injectable Over: 1 Solution hr, Route: IV, 1,000, Drug form: INJ, ONCE, Priority: STAT, Dosing Weight 71.8 kg, Start date: 08/24/16 5:57:00 CDT, Duration: 1 doses or times, Stop date: 08/24/16 5:57:00 CDT Lorazepam No Notes: Memori a 08-24 (Same as: l 05:50: Ativan) Kobi 00 Fentanyl No 1,000 Memoria 08-24 microgram, l 04:21: 20 mL, Caroline 00 Rate: Titrate, Start Dose: 50 microgram/ hr, Titration: 25 microgram/ hour every 15 minutes, Goal(s): RASS, Max Dose: 300 microgram/ hr, Route: IV, Dosing Weight 90 kg, Total Volume: 20, Start date: 08/23/16 23:21:00 CDT, Duration.. . fosphenytoi No 2,000 mg, M emoria n 08-24 Route: l 04:13: IVPB, Caroline 00 ONCE, Dosing Weight 90, kg, Priority: STAT, Start date: 08/23/16 23:13:00 CDT, Stop date: 08/23/16 23:13:00 CDT, Loading dose Sodium 2016-0 No 1,000 mL, Memori a Chloride 08 Infuse l 0.154 03:03: Over: 1 Caroline MEQ/ML 00 hr, Route: Injectable IV, ONCE, Solution Priority: STAT, Dosing Weight 90 kg, Start date: 08/23/16 22:03:00 CDT, Duration: 1 doses or times, Stop date: 08/23/16 22:03:00 CDT Propofol 10 2016-0 No Notes: If M emoria MG/ML 08-24 Diprivan - l Injectable 02:59: change Vanessa nn Suspension 00 bottle & tubing every 12 hr Per state nursing law propofol can only be given by a nurse if patient is intubated or being intubated (unless the nurse is a SURVIVAL SPECIALIST). Same as: Diprivan zonisamide Yes 300 mg = 3 M emoria 100 mg oral 08-08 cap, PO, l capsule 13:57: Q12H, 0 Kobi 00 Refill(s) Tylenol No Notes: Do Memor ia 6- not exceed l 12:51: 4 gm/day. Caroline 00 (Same as: Tylenol) Potassium No Notes: Memori a Chloride 08-08 (Same as: l 1.33 MEQ/ML 11:04: Potassium H ermann Oral 00 Chloride) Solution Miralax No Notes: Memoria 6- Dissolve l 14:00: in 8 oz of Kobi water or juice. (Same as: Miralax) Docusate No Notes: Memoria 6- (Same as: l 14:00: Colace) [place] 00 zonisamide No Notes: Memor ia - Contraindi l 14:00: cated in Kobi 00 patients with hypersensi tivity to sulfonamid es. (Same As: Zonegran) Lamictal No Notes: Memoria 6-21 (Same l 14:00: as:LaMICta [place] 00 l) heparin No Notes: Memoria 6- porcine l 05:00: heparin Kobi 00 sodium No 1,000 mL, Memori a chloride 08-07 Rate: 75 l 0.9% 1000 02:42: ml/hr, Jim n ml INJ 00 Infuse 1,000 mL over: 13.3 hr, Route: IV, Dosing Weight 72.727 kg, Total Volume: 1,000, Start date: 08/06/16 21:42:00 CDT, Duration: 30 day, Stop date: 09/05/16 21:41:00 CDT Keppra No Notes: Memoria 6-21 Same as l 02:00: Keppra [place] 00 Mix with 100 mL NS, LR or D5W MEDICATION WASTE Product Size: 500 mg Product Wasted: ___ mg sertraline Yes 50 mg = 1 Me moria 50 mg oral 6-20 tab, PO, l tablet 23:33: Daily, # Caroline 00 30 tab, 0 Refill(s) zonisamide No 300 mg = 3 M emoria 100 mg oral 6-20 cap, PO, l capsule 23:33: BID, # 270 Herm dahlia 00 cap, 0 Refill(s) lamotrigine Yes 3 tablets, Memoria 100 MG Oral 6-20 PO, BID, # l Tablet 23:33: 60 tab, 0 Jim n [Lamictal] 00 Refill(s) Insulin No 60 Memoria regular 6-20 units) l 22:28: WASTE: F/P Kobi 00 - Black; E - [employer] Trash Bin Stable for 28 days at room temperatur e Expires in days from ____Date Glucagon No 1 mg, Memoria 6-20 Route: IM, l 22:28: Drug form: Kobi PDR/INJ, PRN, Dosing Weight 72.727, kg, PRN Blood Glucose Results, Start date: 08/06/16 17:28:00 CDT, Duration: 30 day, Stop date: 09/05/16 17:27:00 CDT Dextrose No 25 gm, 50 Bolivar denisse 50% Syringe 6-20 mL, Route: l 22:28: IVP, Drug Kobi 00 Form: INJ, Dosing Weight 72.727, kg, PRN, PRN Blood Glucose Results, Start date: 08/06/16 17:28:00 CDT, Duration: 30 day, Stop date: 09/05/16 17:27:00 CDT Calcium No Notes: Memoria Carbonate 6-20 (Same As: l 500 MG 22:27: Tums) Caroline Chewable 00 Calcium Tablet Carbonate 500 mg = 200 mg elemental calcium Dose = mg calcium carbonate ( mg elemental calcium) potassium No Notes: Memori a chloride 6-20 (Same as: l 22:27: KCL) Caroline 00 Infuse over 2 hours. potassium No Notes: Memori a phosphate-s 6-20 (Same as: l odium 22:27: Phos-NaK) Caroline phosphate 00 Each 1.5 250 mg-280 gm pkt has mg-160 mg 250mg oral powder phosphorou for s. Mix reconstitut w/2.5oz ion water and stir. potassium No Notes: Memori a phosphate + 6-20 (Same as: l sodium 22:27: K [place] chloride 00 Phosphate. 0.9% INJ ) 1 mMol 250 mL phoshate has 1.47 mEq potassium Infuse over 4 hours Magnesium No Notes: Memori a Sulfate 6-20 WASTE: F/P l 22:27: - Sink; E [place] - Municipal Trash Bin sodium No 30 mmol, Memoria phosphate + 6-20 10 mL, l sodium 22:27: Route: Caroline chloride 00 IVPB, PRN, 0.9% INJ Dosing 250 mL Weight 72.727, kg, PRN Abnormal Lab Result, Start date: 08/06/16 17:27:00 CDT, Duration: 30 day, Stop date: 09/05/16 17:26:00 CDT, FOR ICU USE ONLY Magnesium No Notes: Memori a Oxide 6-20 (Same as: l 22:27: Mag-Ox Caroline 00 400) Magnesium oxide 514rk=519k g elemental magnesium Dose=____m g magnesium oxide (___mg elemental magnesium) Calcium No Notes: Memoria Gluconate 6-20 WASTE: F/P l 22:27: - Sink; E Kobi - Municipal Trash Bin LaMICtal XR No 600 mg, 6 M emoria 3-01 tab, l 15:00: Route: PO, Kobi 00 Drug form: ERTAB, Daily, Dosing Weight 72.727, kg, Start date: 04/17/13 9:00:00, Duration: 30 day, Stop date: 05/16/13 9:00:00Sam e as: LaMICtal XR Lorazepam 1 Yes 1 mg = 1 Me moria MG Oral 3-01 tab, PO, l Tablet 14:00: BID, # 8 Caroline [Ativan] 00 tab, 0 Refill(s) 24 HR Yes 600 mg = 6 Memori a lamotrigine 3-01 tab, PO, l 100 MG 13:57: Daily, # Caroline Extended 00 180 tab, Release 11 Tablet Refill(s) sertraline Yes 25 mg = 1 Me moria 25 mg oral 3-01 tab, PO, l tablet 13:57: Daily, # Kobi 00 30 tab, 11 Refill(s) Ibuprofen Yes 600 mg, 1 Mem oria 3-01 tab, l 06:40: Route: PO, Kobi 00 Drug form: TAB, ONCE, Dosing Weight 72.727, kg, Priority: NOW, Start date: 04/17/13 0:40:00, Stop date: 04/17/13 0:40:00( me as: Motrin) "Do Not Crush" Take with food. Zofran No 4 mg, 2 Memoria 3-01 mL, Route: l 04:00: IV, Drug form: INJ, Q8H, Dosing Weight 72.727, kg, PRN Nausea, Start date: 04/16/13 22:00:00, Duration: 30 day, Stop date: 05/16/13 21:59:00(S kwame as: Zofran) LaMICtal XR No 600 mg, 6 M emoria 3-01 tab, l 03:59: Route: PO, Kobi 00 Drug form: ERTAB, ONCE, Dosing Weight 72.727, kg, Priority: NOW, Start date: 04/16/13 21:59:00, Stop date: 04/16/13 21:59:00Sa me as: LaMICtal XR lacosamide No 100 mg, 1 Me moria 3-01 tab, l 01:30: Route: PO, Drug form: TAB, BID, Dosing Weight 72.727, kg, Start date: 04/16/13 19:30:00, Duration: 30 day, Stop date: 05/16/13 17:00:00Sa me as: Vimpat lacosamide Yes 100 mg = 1 M emoria 100 MG Oral 2-27 tab, BID, l Tablet 14:54: 0 Caroline [Vimpat] 00 Refill(s) Tylenol No 650 mg, 2 Memor ia 2-27 tab, l 13:36: Route: PO, Caroline 00 Drug form: TAB, Q4H, Dosing Weight 72.727, kg, PRN Pain, Start date: 04/15/13 7:36:00, Duration: 30 day, Stop date: 05/15/13 7:35:00Do not exceed 4 gm/day. (Same as: Tylenol) Lamictal No 200 mg, Memori a 2-26 Route: PO, l 15:00: Daily, Caroline 00 Dosing Weight 72.727, kg, Start date: 04/14/13 9:00:00, Duration: 30 day, Stop date: 05/13/13 9:00:00 multivitami No 1 tab, Bolivar denisse n with 226 Route: PO, l minerals 15:00: Drug Form: [place] 00 TAB, Dosing Weight 72.727, kg, Daily, Start date: 04/14/13 9:00:00, Duration: 30 day, Stop date: 05/13/13 9:00:00([facility] as:Thera-M , Theragran- M) Give with food. Sertraline No 25 mg, 1 Mem oria 2-26 tab, l 15:00: Route: PO, Kobi 00 Drug form: TAB, Daily, Dosing Weight 72.727, kg, Start date: 04/14/13 9:00:00, Duration: 30 day, Stop date: 05/13/13 9:00:00([facility] as: Zoloft) LaMICtal XR No 100 mg, 1 M emoria 2-26 tab, l 15:00: Route: PO, Caroline 00 Drug form: ERTAB, Daily, Dosing Weight 72.727, kg, Start date: 04/14/13 9:00:00, Stop date: 05/13/13 9:00:00Sam e as: LaMICtal XR Ascorbic 0 No Daily, 0 Memor ia Acid / Beta 2-25 Refill(s) l Carotene / 15:37: Kobi cuprous 00 oxide / Lutein / sodium selenate / Vitamin E / Zinc Oxide Calcium, No 2 tab, PO, Mem oria Magnesium 2-25 BID, # 100 l and 15:37: tab, 0 Caroline Phosphorus 00 Refill(s) oral tablet LaMICtal XR No Dragan 600 mg, 6 Memoria 1-25 Kip tab, l 15:00: Morris Route: PO, H ermann 00 Drug form: ERTAB, Daily, Dosing Weight 79.545, kg, Start date: 03/13/13 9:00:00, Duration: 30 day, Stop date: 04/11/13 9:00:00Sam e as: LaMICtal XR sertraline No Dragan 25 mg, 1 Memoria 1-25 Kip tab, l 15:00: Morris Route: PO, H ermann 00 Drug form: TAB, Daily, Dosing Weight 79.545, kg, Start date: 03/13/13 9:00:00, Duration: 30 day, Stop date: 04/11/13 9:00:00([facility] as: Zoloft) cephalexin Yes [facility] 500 mg = 1 Memoria 500 mg oral 1-25 n Rosalino tab, PO, l tablet 13:03: BID, # 14 Jim n 00 tab, 0 Refill(s) lacosamide Yes [facility] 100 mg = 1 Memoria 100 mg oral 1-25 n Rosalino tab, PO, l tablet 13:03: BID, # 60 Jim n 00 tab, 2 Refill(s) Vimpat No Dragan 100 mg, 1 M emoria 1-24 Kip tab, l 23:00: Morris Route: PO, H ermann 00 Drug form: TAB, BID, Dosing Weight 79.545, kg, Start date: 03/12/13 17:00:00, Duration: 30 day, Stop date: 04/11/13 9:00:00Sam e as: Vimpat senna 8.6 No Dragan 8.6 mg, 1 Memoria mg oral 1-24 Kip tab, l tablet 19:24: Morris Route: PO, Caroline 00 Drug Form: TAB, Dosing Weight 79.545, kg, Bedtime, PRN Constipati on, Start date: 03/12/13 13:24:00, Duration: 30 day, Stop date: 04/11/13 13:23:00(S kwame as: Senokot) docusate No Dragan 50 mg, 5 Memoria 1-24 Kip mL, Route: l 19:24: Morris PO, Drug Her form: LIQ, BID, Dosing Weight 79.545, kg, PRN Constipati on, Start date: 03/12/13 13:24:00, Duration: 30 day, Stop date: 04/11/13 13:23:00(S kwame as: Colace) Sodium No Dragan 1,000 mL, M emoria Chloride 1-24 Kip Rate: 75 l 0.9% IV 19:23: Morris ml/hr, He rmann 1,000 mL 00 Infuse over: 13.3 hr, Route: IV, Dosing Weight 79.545 kg, Total Volume: 1,000, Start date: 03/12/13 13:23:00, Duration: 30 day, Stop date: 04/11/13 13:22:00 ondansetron No Willem De 4 mg, 2 Memoria 1-24 Sanders mL, Route: l 17:57: IVP, Drug form: INJ, ONCE, Dosing Weight 79.545, kg, PRN Nausea & Vomiting, Start date: 03/12/13 11:57:00(S kwame as: Zofran) flumazenil No Willem De 0.2 mg, 2 Memoria 1-24 Sanders mL, Route: l 17:57: IVP, Drug form: INJ, PRN, Dosing Weight 79.545, kg, PRN Benzodiaze pine Reversal, Initial dose, Start date: 03/12/13 11:57:00, Duration: 30 day, Stop date: 04/11/13 11:56:00(S kwame as: Romazicon) hydromorpho No Willem De 0.5 mg, Memoria ne 1-24 Sanders 0.25 mL, l 17:57: Route: Caroline 00 IVP, Drug form: INJ, Q5Min, Dosing Weight 79.545, kg, PRN Pain Score 7-10, Start date: 03/12/13 11:57:00, Duration: 4 doses or times, Stop date: 03/13/13 0:00:00( me as: Dilaudid) naloxone No Willem De 0.04 mg, Memoria 1-24 Sanders 0.1 mL, l 17:57: Route: Caroline 00 IVP, Drug form: INJ, Q2MIN, Dosing Weight 79.545, kg, PRN Narcotic Reversal, Start date: 03/12/13 11:57:00, Duration: 8 doses or times, Stop date: 03/13/13 0:00:00( me as: Narcan) labetalol No Willem De 10 mg, 2 Memoria 1-24 Sanders mL, Route: l 17:57: IVP, Drug form: INJ, Q5Min, Dosing Weight 79.545, kg, PRN Elevated BP, Start date: 03/12/13 11:57:00, Duration: 5 doses or times, Stop date: 03/13/13 0:00:00 hydrALAZINE No Willem De 10 mg, 0.5 Memoria 1-24 Sanders mL, Route: l 17:57: IVP, Drug form: INJ, Q20Min, Dosing Weight 79.545, kg, PRN Elevated BP, Start date: 03/12/13 11:57:00, Duration: 2 doses or times, Stop date: 03/13/13 0:00:00( me as: Apresoline ) Push over 5 minutes [place] No Dragan 1 tab, Memor ia 10/325 oral 03-12 Kip Route: PO, l tablet 17:37: Morris Drug Form: Kobi 00 TAB, Dosing Weight 79.545, kg, Q4H, PRN Pain, Start date: 03/12/13 11:37:00, Duration: 30 day, Stop date: 04/11/13 11:36:00Do not exceed 4gm/day of acetaminop hen. (Same as: [place] 325/10) Milk of No Dragan 30 mL, Mem oria Magnesia 1-24 Kip Route: PO, l 17:34: Morris Drug Form: H ermann 00 SUSP, Dosing Weight 79.545, kg, Q6H, PRN Constipati on, Start date: 03/12/13 11:34:00, Duration: 30 day, Stop date: 04/11/13 11:33:00(S kwame as: Milk of Magnesia, MOM) cefepime No León 2 gm, Memoria 24 Cristian Route: l 15:42: IVPB, Drug Caroline 00 form: INJ, ABXQ8H, Dosing Weight 79.545, kg, (CrCl >/= 50 ml/min, HALF BACKER infection or neutropeni c fever), Start date: 03/12/13 9:42:00, Duration: 30 day, Stop date: 04/11/13 1:42:00(Sa me as: Maxipime) vancomycin No León 1.5 gm, Mem oria + Sodium 03-12 Cristian Route: l Chloride 15:31: IVPB, Caroline 0.9% IV 250 00 ABXQ8H, mL Dosing Weight 79.545, kg, Start date: 03/12/13 9:31:00, Duration: 30 day, Stop date: 04/11/13 1:31:00(Sa me As: Vancocin) Vancomycin FOR IV SET ONLY hydrALAZINE No Chris 10 mg, 0.5 Memoria 1-22 r Anam mL, Route: l 23:41: Jeremykey IVP, Drug [place] parks 00 form: INJ, Q20Min, Dosing Weight 79.545, kg, PRN Elevated BP, Start date: 03/10/13 17:41:00, Duration: 2 doses or times, Stop date: 03/11/13 0:00:00(Sa me as: Apresoline ) Push over 5 minutes naloxone No Chris 0.04 mg, Memoria 122 r Anam 0.1 mL, l 23:41: McCjung Route: Jim n 00 IVP, Drug form: INJ, Q2MIN, Dosing Weight 79.545, kg, PRN Narcotic Reversal, Start date: 03/10/13 17:41:00, Duration: 8 doses or times, Stop date: 03/11/13 0:00:00Sam e as Narcan labetalol No Chris 10 mg, 2 Memoria 1-22 r Anam mL, Route: l 23:41: Mc[place] IVP, Drug [place] 00 form: INJ, Q5Min, Dosing Weight 79.545, kg, PRN Elevated BP, Start date: 03/10/13 17:41:00, Duration: 5 doses or times, Stop date: 03/11/13 0:00:00 dexamethaso No Chris 4 mg, 1 Memoria ne 1-22 r Anam mL, Route: l 23:41: [place] IVP, Drug [place] 00 form: INJ, ONCE, Dosing Weight 79.545, kg, PRN Nausea & Vomiting, Start date: 03/10/13 17:41:00Co ncentratio n: 4mg/ml morphine No Chris 2 mg, 1 Memoria Sulfate 1-22 r Anam mL, Route: l 23:41: [place] IVP, Drug [place] 00 form: INJ, Q5Min, Dosing Weight 79.545, kg, PRN Pain Score 4-6, Start date: 03/10/13 17:41:00, Duration: 5 doses or times, Stop date: 03/11/13 0:00:00([facility] as:MORPhin e Sulfate) hydromorpho No Chris 0.5 mg, Memoria ne 1-22 r Anam 0.25 mL, l 23:41: Celina Route: Jim n 00 IVP, Drug form: INJ, Q5Min, Dosing Weight 79.545, kg, PRN Pain Score 7-10, Start date: 03/10/13 17:41:00, Duration: 4 doses or times, Stop date: 03/11/13 0:00:00Sam e as: Dilaudid flumazenil No Chris 0.2 mg, 2 Memoria 1-22 r Anam mL, Route: l 23:41: [place] IVP, Drug [place] 00 form: INJ, PRN, Dosing Weight 79.545, kg, PRN Benzodiaze pine Reversal, Initial dose, Start date: 03/10/13 17:41:00, Duration: 1 day, Stop date: 03/11/13 17:40:00(S kwame as: Romazicon) diphenhydrA No Chris 12.5 mg, Memoria MINE 03-10 r Anam 0.25 mL, l 23:41: McColskey Route: Jim n 00 IVP, Drug form: INJ, Q6H, Dosing Weight 79.545, kg, PRN Itching, Start date: 03/10/13 17:41:00, Duration: 1 day, Stop date: 03/11/13 12:00:00(S kwame as: Benadryl) ondansetron No Chris 4 mg, 2 Memoria - r Anam mL, Route: l 23:41: Mc[place]key IVP, Drug [place] 00 form: INJ, ONCE, Dosing Weight 79.545, kg, PRN Nausea & Vomiting, Start date: 03/10/13 17:41:00(S kwame as: Zofran) promethazin No Chris 6.25 mg, Memoria e 03-10 r Anam 0.25 mL, l 23:41: McCAudiotoniqkey Route: Jim n 00 IVPB, Drug form: INJ, ONCE, Dosing Weight 79.545, kg, PRN Nausea & Vomiting, Start date: 03/10/13 17:41:00Do not give IV push. (Same as: Phenergan) [place] Yes [place]-Aaro 1 tab, PO, Memoria 10/325 oral - n Rosalino Q4H, for l tablet 23:34: pain, # 60 Vanessa nn 00 tab, 0 Refill(s) Colace 100 Yes [place]aro 100 mg = 1 Memoria mg oral 1-22 n Rosalino cap, PO, l capsule 23:34: BID, Kobi 00 Constipati on, # 28 cap, 0 Refill(s) Zofran 4 mg Yes [place] 4 mg = 1 Memoria oral tablet -22 n Rosalino tab, PO, l 23:34: Q8H, as Kobi 00 needed for nausea/vom iting, # 42 tab, 0 Refill(s) vancomycin 2013-0 No León 1 gm, Memor ia 1-22 Cristian Route: l 21:44: IVPB, Drug Caroline 00 form: INJ, ONCE, Dosing Weight 79.545, kg, Start date: 03/10/13 15:44:00, Stop date: 03/10/13 15:44:00 ceFAZolin 2013-0 No León 2 gm, 50 Mem oria 1-22 Cristian mL, Route: l 09:00: IVPB, Drug form: INJ, PRE OP, Start date: 03/10/13 3:00:00, Duration: 1 doses or times, Stop date: 03/11/13 0:00:00 NS + KCL 0 No León 1,000 mL, Mem oria 20mEq/L -22 Cristian Rate: 70 l 1000ml 08:32: ml/hr, Caroline (Premix) 00 Infuse 1,000 mL over: 14.3 hr, Route: IV, Dosing Weight 79.545 kg, Total Volume: 1,000, Start date: 03/10/13 2:32:00, Duration: 1 doses or times, Stop date: 03/10/13 16:49:00PR EMIX IV - Do Not Alter sertraline 2013-0 Yes 0 Memoria 1-14 Refill(s) l 20:23: Kobi 00 LaMICtal 2013-0 Yes 0 Memoria 1-14 Refill(s) l 20:23: Caroline 00 Lyrica 2013-0 Yes 0 Memoria 1-14 Refill(s) l 20:23: Caroline 00 Immunizations Ordered Filled Immunization Date Status Comments [facility] e Immunization Name Name SARS-COV-2 COVID-19 2020-06-16 Completed Unive rsity of MODERNA VACCINE 00:00:00 [facility] SARS-COV-2 COVID-19 2020-06-16 Completed Unive rsity of MODERNA VACCINE 00:00:00 [facility] SARS-COV-2 COVID-19 2020-06-16 Completed Unive rsity of MODERNA VACCINE 00:00:00 [facility] SARS-COV-2 COVID-19 2020-06-16 Completed Unive rsity of MODERNA VACCINE 00:00:00 [facility] SARS-COV-2 COVID-19 2020-05-19 Completed Unive rsity of MODERNA VACCINE 00:00:00 [facility] SARS-COV-2 COVID-19 2020-05-19 Completed Unive rsity of MODERNA VACCINE 00:00:00 [facility] SARS-COV-2 COVID-19 2020-05-19 Completed Unive rsity of MODERNA VACCINE 00:00:00 [facility] SARS-COV-2 COVID-19 2020-05-19 Completed Unive rsity of MODERNA VACCINE 00:00:00 [facility] Vital Signs Vital Name Observation Time Observation Value Comments Source Systolic blood 2020-12-07 16:19:00 111 mm[Hg] Univer sity of pressure [facility] Diastolic blood 2020-12-07 16:19:00 76 mm[Hg] Unive rsity of pressure [facility] Heart rate 2020-12-07 16:19:00 65 /min [facility] Body temperature 2020-12-07 16:19:00 36.33 [facility] 2020-12-07 16:19:00 16 /min [facility] Body height 2020-12-07 16:19:00 175.3 cm [facility] Body weight 2020-12-07 16:19:00 71.033 kg [facility] BMI 2020-12-07 16:19:00 23.13 kg/m2 [facility] Respitory Rate 2016-08-26 19:20:00 Memori al Caroline Systolic (mm Hg) 2016-08-26 17:00:00 Bolivar rial Caroline Diastolic (mm Hg) 2016-08-26 17:00:00 Mem orial Caroline Respitory Rate 2016-08-26 17:00:00 Memori al Caroline Temperature Oral (F) 2016-08-26 17:00:00 98.0 F Memorial Caroline Systolic (mm Hg) 2016-08-26 16:00:00 Bolivar rial Kobi Diastolic (mm Hg) 2016-08-26 16:00:00 Mem orial Kobi Respitory Rate 2016-08-26 16:00:00 Memori al Kobi Systolic (mm Hg) 2016-08-26 15:00:00 Bolivar rial Kobi Diastolic (mm Hg) 2016-08-26 15:00:00 Mem orial Caroline Temperature Oral (F) 2016-08-26 13:45:00 97.8 F Memorial Caroline Temperature Oral (F) 2016-08-26 10:00:00 97.4 F Memorial Caroline Height 2016-08-24 13:40:00 165.1 cm Memorial Kobi BMI Calculated 2016-08-24 08:33:00 Memori al Caroline Weight 2016-08-24 08:33:00 Memorial Kobi Height 2016-08-24 08:33:00 165.1 cm Memorial Caroline Height 2016-08-24 07:41:00 182.88 cm [facility] Caroline BMI Calculated 2016-08-24 03:01:00 Memori al Caroline Weight 2016-08-24 03:01:00 Memorial Caroline Heart Rate 2016-08-24 02:52:00 Memorial Caroline Systolic (mm Hg) 2016-08-08 14:00:00 Bolivar rial Caroline Diastolic (mm Hg) 2016-08-08 14:00:00 Mem orial Kobi Respitory Rate 2016-08-08 14:00:00 Memori al Caroline Systolic (mm Hg) 2016-08-08 13:00:00 Bolivar rial Kobi Diastolic (mm Hg) 2016-08-08 13:00:00 Mem orial Caroline Respitory Rate 2016-08-08 13:00:00 Memori al Caroline Systolic (mm Hg) 2016-08-08 12:54:00 Bolivar rial Kobi Diastolic (mm Hg) 2016-08-08 12:54:00 Mem orial Kobi Respitory Rate 2016-08-08 12:54:00 Memori al Caroline Temperature Oral (F) 2016-08-08 08:21:00 98.3 F Memorial Caroline Temperature Oral (F) 2016-08-08 04:25:00 97.6 F Memorial Kobi Temperature Oral (F) 2016-08-08 01:49:00 99.1 F [facility] Kobi Weight 2016-08-07 14:00:00 Memorial Kobi BMI Calculated 2016-08-07 02:41:00 Memori al Caroline Weight 2016-08-07 02:41:00 Memorial Kobi Height 2016-08-07 02:41:00 175.26 cm [facility] Kobi Heart Rate 2016-08-06 22:00:00 Memorial Caroline Diastolic (mm Hg) 2013-04-17 13:58:00 Mem orial Kobi Systolic (mm Hg) 2013-04-17 13:58:00 Bolivar rial Caroline Heart Rate 2013-04-17 13:58:00 Memorial Kobi Respitory Rate 2013-04-17 13:58:00 Memori al Caroline Temperature Oral (F) 2013-04-17 13:58:00 98.2 F [facility] Caroline Diastolic (mm Hg) 2013-04-17 01:56:00 Mem orial Kobi Heart Rate 2013-04-17 01:56:00 Memorial Kobi Temperature Oral (F) 2013-04-17 01:56:00 97.8 F Memorial Kobi Systolic (mm Hg) 2013-04-17 01:56:00 Bolivar rial Kobi Respitory Rate 2013-04-17 01:56:00 Memori al Kobi Diastolic (mm Hg) 2013-04-16 15:27:00 Mem orial Caroline Systolic (mm Hg) 2013-04-16 15:27:00 Bolivra rial Kobi Temperature Oral (F) 2013-04-16 15:27:00 98.1 F Memorial Caroline Heart Rate 2013-04-16 15:27:00 Memorial Kobi Respitory Rate 2013-04-16 03:10:00 Memori al Kobi BMI Calculated 2013-04-13 14:23:00 Memori al Caroline Weight 2013-04-13 14:23:00 Memorial Caroline Height 2013-04-13 14:23:00 175.26 cm [facility] Kobi Diastolic (mm Hg) 2013-03-13 14:16:00 Mem orial Kobi Systolic (mm Hg) 2013-03-13 14:16:00 Bolivar rial Caroline Respitory Rate 2013-03-13 14:16:00 Memori al Caroline Systolic (mm Hg) 2013-03-13 11:00:00 Bolivar rial Kobi Diastolic (mm Hg) 2013-03-13 11:00:00 Mem orial Caroline Systolic (mm Hg) 2013-03-13 06:00:00 Bolivar rial Caroline Diastolic (mm Hg) 2013-03-13 06:00:00 Mem orial Kobi Respitory Rate 2013-03-12 22:02:00 Memori al Caroline Temperature Oral (F) 2013-03-12 20:15:00 97.5 F Memorial Kobi Respitory Rate 2013-03-12 20:15:00 Memori al Kobi Temperature Oral (F) 2013-03-12 17:30:00 98 F Memorial Kobi Heart Rate 2013-03-12 14:02:00 Memorial Caroline Height 2013-03-12 13:42:00 175.26 cm Memorial Caroline Weight 2013-03-12 13:42:00 Memorial Kobi Heart Rate 2013-03-11 00:18:00 Memorial Caroline Systolic (mm Hg) 2013-03-11 00:18:00 Bolivar rial Caroline Respitory Rate 2013-03-11 00:18:00 Memori al Kobi Diastolic (mm Hg) 2013-03-11 00:18:00 Mem orial Caroline Diastolic (mm Hg) 2013-03-11 00:00:00 Mem orial Kobi Systolic (mm Hg) 2013-03-11 00:00:00 Bolivar rial Kobi Respitory Rate 2013-03-11 00:00:00 Memori al Caroline Diastolic (mm Hg) 2013-03-10 23:45:00 Mem orial Kobi Systolic (mm Hg) 2013-03-10 23:45:00 Bolivar rial Caroline Respitory Rate 2013-03-10 23:45:00 Memori al Caroline Heart Rate 2013-03-10 17:31:00 Memorial Caroline Weight 2013-03-10 17:31:00 Memorial Caroline Height 2013-03-10 17:31:00 175.26 cm [facility] Caroline Weight 2013-03-02 20:01:00 Memorial Kobi Height 2013-03-02 20:01:00 175.26 cm [facility] Kobi Diastolic (mm Hg) 2012-07-25 14:10:00 Mem orial Caroline Systolic (mm Hg) 2012-07-25 14:10:00 Bolivar rial Caroline Temperature Oral (F) 2012-07-25 14:10:00 97.1 F Memorial Kobi Systolic (mm Hg) 2012-07-25 02:15:00 Bolivar rial Kobi Diastolic (mm Hg) 2012-07-25 02:15:00 Mem orial Kobi Respitory Rate 2012-07-25 02:15:00 Memori al Kobi Temperature Oral (F) 2012-07-25 02:15:00 97.6 F Memorial Caroline Temperature Oral (F) 2012-07-24 18:09:00 97.3 F [facility] Kobi Diastolic (mm Hg) 2012-07-24 18:09:00 Mem orial Kobi Systolic (mm Hg) 2012-07-24 18:09:00 Bolivar rial Kobi Weight 2012-07-24 14:33:00 Memorial Kobi Height 2012-07-24 14:33:00 175.26 cm [facility] Procedures Procedure Date / Time Performed Performing Clinician Ronald euceda Lobectomy of brain 2004-02-18 00:00:00 [facility] Kobi ORIF - Open reduction and Martín al Caroline internal fixation of fracture Encounters Start End Encounter Admission Attending Care Care Encounter Source Date/Time Date/Time Type Type Clinicians Facility Department ID 2021-05-11 2021-05-11 Outpatient R CHARISMA [facility] [id number] Univers 09:30:00 09:30:00 WONDIFUL [id number] ity o f [facility] 2021-05-11 2021-05-11 Outpatient R CHARISMA [facility] [id number] Univers 09:30:00 09:30:00 WONDIFUL ity o f [facility] 2021-03-15 2021-03-15 Outpatient R SOCO MAYEN [facility] [id number] Univers 10:30:00 10:30:00 [id number] ity [facility] 2021-01-31 2021-01-31 Outpatient SOCO MAYEN [facility] [id number] Univers 15:00:00 15:00:00 [id number] [facility] 2021-01-26 2021-01-26 Outpatient R [facility] [id number] Univers 15:45:00 15:45:00 [id number] [facility] 2021-01-26 2021-01-26 Outpatient R SOCO MAYEN [facility] [id number] Univers 15:45:00 15:45:00 ity of [facility] 2021-01-26 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, [facility] [id number] Univers 15:21:35 15:31:14 Visit Soco Mayen [place] [id number] ity [id number] [id number] Ma dical [facility] 353 [facility] 2021-01-24 2021-01-24 Patient Soco MayenIT [id number] Univers 00:00:00 00:00:00 Secure Msg S [place] HE[place] [id number] [id number] [id number] [place] [id number] [place] 2020-12-07 2020-12-07 [employer] Teacher [facility]ERS[facility] [id number] Univers 11:44:40 11:48:31 Visit Soco Mayen [place] [id number] [id number] [id number] [facility] [address] 2020-12-07 2020-12-07 Office Soco MayenIT [id number] Univers 10:48:17 11:42:33 Visit S Y HEALTH [id number] i ty [id number] [id number] [place] 2020-12-07 2020-12-07 Outpatient R SOCO MAYEN [facility] [id number] Univers 10:30:00 10:30:00 [id number] ity of [facility] 2020-12-07 2020-12-07 Outpatient R SOCO MAYEN [facility] [id number] Univers 10:30:00 10:30:00 ity of [facility] 2020-11-13 2020-11-13 Outpatient R CHARISMA [facility] [id number] Univers 09:15:00 09:15:00 WONDIFUL [id number] ity o f [facility] 2020-11-13 2020-11-13 Outpatient R CHARISMA [facility] [id number] Univers 09:15:00 09:15:00 WONDIFUL ity o f [facility] 2020-10-03 2020-10-03 Outpatient CHARISMA [facility] [id number] Univers 10:00:00 10:00:00 WONDIFUL [id number] ity o f [facility] 2020-10-03 2020-10-03 Outpatient R CHARISMA [facility] [id number] Univers 10:00:00 10:00:00 WONDIFUL ity o f [facility] 2020-09-11 2020-09-11 Outpatient R [facility] [id number] Univers 15:30:00 15:30:00 [id number] ity [facility] 2020-09-11 2020-09-11 Outpatient R CHARISMA [facility] [id number] Univers 15:30:00 15:30:00 WONDIFUL ity o f [facility] 2020-09-04 2020-09-04 Outpatient R [facility] [id number] Univers 14:15:00 14:15:00 [id number] ity [facility] 2020-09-04 2020-09-04 Outpatient R CHARISMA [facility] [id number] Univers 14:15:00 14:15:00 WONDIFUL ity o f [facility] 2020-08-31 2020-08-31 Outpatient R SOCO MAYEN [facility] [id number] Univers 12:00:00 12:00:00 [id number] ity [facility] 2020-08-31 2020-08-31 Outpatient R SOCO MAYEN [facility] [id number] Univers 12:00:00 12:00:00 ity [facility] 2020-08-30 2020-08-30 Outpatient R ALEX [facility] [id number] Univers 10:00:00 10:00:00 [facility] 2020-08-14 Emergency X Shilo NICK [facility] ERT [id number] Univers 12:41:00 12:41:00 ity of [facility] 2016-08-24 2016-08-26 Inpatient nullFlavo [facility] [id number] Memoria 02:45:00 19:12:00 r Caroline 67 [facility] 2016-08-06 2016-08-08 Observatio nullFlavo [facility] [id number] Memoria 23:49:00 16:15:00 n r Kobi 71 [facility] 2014-10-07 2014-10-08 Outpatient nullFlavo [facility] [id number] Memoria 12:17:00 04:59:00 r Caroline 02 [facility] 2013-09-24 2013-12-24 Research nullFlavo [facility] [id number] Memoria 15:00:00 05:59:59 Patient r Caroline 19 [facility] 2013-07-15 2013-10-14 Research nullFlavo [facility] [id number] Memoria 19:00:00 04:59:59 Patient r Caroline 48 [facility] 2013-04-13 2013-04-17 Inpatient nullFlavo [facility] [id number] Memoria 14:06:00 16:05:00 r Caroline [id number] [address] 2013-04-13 2013-04-13 Inpatient nullFlavo [facility] [id number] Memoria 08:06:00 08:06:00 r [facility] 52 [facility] 2013-03-12 2013-03-13 CARL nullFlavo [facility] [id number] Memoria 11:46:00 13:20:00 r [facility] 01 [facility] 2013-03-10 2013-03-10 DS nullFlavo [facility] [id number] Memoria 09:55:00 23:59:00 r Medical 00 [facility] 2012-07-24 2012-07-25 CARL nullFlavo [facility] [id number] Memoria 09:17:00 11:50:00 r [facility] 21 [facility] Results Test Description Test Time Test Comments Results Result Comments Source TOXICOLOGY 2016-08-26 14:10:00 Test Item Value Reference Range Interpretation Comme nts Phenytoin Free (test code = Phenytoin Free) 2.20 1.00-2.00 [facility] [id number] 10:25:00 Test Item Value Reference Range Interpretation Comments eGFR (test code = eGFR) 118 [facility]2017-07-10 10:25:00 Test Item Value Reference Range Interpretation Comments Potassium Lvl (test code = Potassium 3.3 3.5-5.1 Lvl) [facility]2017-07-10 10:25:00 Test Item Value Reference Range Interpretation Comments Chloride Lvl (test code = Chloride Lvl) 108 95-109 [facility]2017-07-10 10:25:00 Test Item Value Reference Range Interpretation Comments Calcium Lvl (test code = Calcium Lvl) 8.8 8.5-10.5 [facility]2017-07-10 10:25:00 Test Item Value Reference Range Interpretation Comments CO2 (test code = CO2) 19 24-32 [facility]2017-07-10 10:25:00 Test Item Value Reference Range Interpretation Comments Creatinine Lvl (test code = Creatinine 0.88 0.50-1.40 Lvl) [facility]2017-07-10 10:25:00 Test Item Value Reference Range Interpretation Comments BUN (test code = BUN) 7 7-22 [facility]2017-07-10 10:25:00 Test Item Value Reference Range Interpretation Comments Sodium Lvl (test code = Sodium Lvl) 140 135-145 [facility]2017-07-10 10:25:00 Test Item Value Reference Range Interpretation Comments Glucose Lvl (test code = Glucose Lvl) 74 70-99 [facility]2017-07-10 10:25:00 Test Item Value Reference Range Interpretation Comments AGAP (test code = AGAP) 16.3 10.0-20.0 [facility]2017-07-10 10:25:00 Test Item Value Reference Range Interpretation Comments Magnesium Lvl (test code = Magnesium 2.0 1.8-2.4 Lvl) [facility]2017-07-10 10:25:00 Test Item Value Reference Range Interpretation Comments Phosphorus (test code = Phosphorus) 2.6 2.5-4.5 [facility]QtzqgjlYWYPZFZXJI1557-54-12 10:25:00 Test Item Value Reference Range Interpretation Comments MPV (test code = MPV) 7.8 7.4-10.4 [facility] HospitalFtdnwcpQHUEVGQAPJ7233-68-91 10:25:00 Test Item Value Reference Range Interpretation Comments MCH (test code = MCH) 31.2 pg 27.0-31.0 [facility] HospitalKkacgtfNPVJIGUNRK0768-65-47 10:25:00 Test Item Value Reference Range Interpretation Comments MCHC (test code = MCHC) 33.7 32.0-36.0 [facility] HospitalEgbzpnyGLNPURWLPR1668-69-22 10:25:00 Test Item Value Reference Range Interpretation Comments RDW (test code = RDW) 13.5 11.5-14.5 [facility] HospitalSuyrlhhYLLQULUQGF9402-16-43 10:25:00 Test Item Value Reference Range Interpretation Comments Platelet (test code = Platelet) 322 133-450 [facility] HospitalGzxnkteOMERKVRHKP8033-95-63 10:25:00 Test Item Value Reference Range Interpretation Comments Hct (test code = Hct) 40.5 42.0-54.0 [facility] HospitalZyqraidQTESDDJKRP6032-28-81 10:25:00 Test Item Value Reference Range Interpretation Comments WBC (test code = WBC) 10.9 3.7-10.4 [facility] HospitalBgespdjNVPGMIQTCF3715-26-48 10:25:00 Test Item Value Reference Range Interpretation Comments RBC (test code = RBC) 4.37 4.70-6.10 [facility] HospitalMptugymFIKDIOBXFH6228-97-60 10:25:00 Test Item Value Reference Range Interpretation Comments Hgb (test code = Hgb) 13.6 14.0-18.0 [facility] HospitalUzqvescHAPZVVDPIL3440-12-52 10:25:00 Test Item Value Reference Range Interpretation Comments MCV (test code = MCV) 92.7 80.0-94.0 [facility] HospitalPbjeldaVTLUXTIVEJ1370-48-51 10:25:00 Test Item Value Reference Range Interpretation Comments Basophils # (test code 0.1 See_Comment [Aut omated message] The = Basophils #) system which generated this result tra nsmitted reference range : <=0.2. The reference r yadira was not used to int erpret this result as normal/abnormal . [facility] HospitalJibuuwdFUNSQBRUHD6678-65-79 10:25:00 Test Item Value Reference Range Interpretation Comments Eosinophils # (test code 0.3 See_Comment [A utomated message] The = Eosinophils #) system whic h generated this result tra nsmitted reference range : <=0.5. The reference r yadira was not used to int erpret this result as normal/abnormal . [facility] HospitalVwnsvsfMKEIFPJUTL8532-28-45 10:25:00 Test Item Value Reference Range Interpretation Comments Lymphocytes # (test code = Lymphocytes 2.9 1.0-5.5 #) [facility] HospitalQspsfboZWSZQFBLGM1233-67-18 10:25:00 Test Item Value Reference Range Interpretation Comments Monocytes # (test code 1.3 See_Comment [Aut omated message] The = Monocytes #) system which generated this result tra nsmitted reference range : <=0.8. The reference r yadira was not used to int erpret this result as normal/abnormal . [facility] HospitalCpusybmTUPDPDXVYH3120-67-97 10:25:00 Test Item Value Reference Range Interpretation Comments Monocytes (test code = Monocytes) 11.6 2.0-12.0 [facility] HospitalDgqpjotVVZAKNRVFJ7650-55-02 10:25:00 Test Item Value Reference Range Interpretation Comments Segs-Bands # (test code = Segs-Bands #) 6.4 1.5-8.1 [facility] HospitalGykwndxBYZWSTSDDT6681-60-83 10:25:00 Test Item Value Reference Range Interpretation Comments Segs (test code = Segs) 58.3 45.0-75.0 [facility] HospitalMaeyrvoDHJEGQTXNS4035-80-11 10:25:00 Test Item Value Reference Range Interpretation Comments Lymphocytes (test code = Lymphocytes) 26.2 20.0-40.0 [facility] HospitalJjioeewWPDIAISIIB9011-98-60 10:25:00 Test Item Value Reference Range Interpretation Comments Basophils (test code = 0.7 See_Comment [Aut omated message] The Basophils) system which ge nerated this result tra nsmitted reference range : <=1.0. The reference r yadira was not used to int erpret this result as normal/abnormal . [facility] HospitalHyutnstAEXKSZWLSH6403-00-82 10:25:00 Test Item Value Reference Range Interpretation Comments Eosinophils (test code = 3.2 See_Comment [A utomated message] The Eosinophils) system which ge nerated this result tra nsmitted reference range : <=4.0. The reference r yadira was not used to int erpret this result as normal/abnormal . [facility] EXGKVTE8082-67-77 10:25:00 Test Item Value Reference Range Interpretation Comments Ca Norm WB (test code = Ca Norm WB) 1.12 1.05-1.25 [facility] HospitalPARATHYROID [id number] 10:25:00 Test Item Value Reference Range Interpretation Comments Ca Ion WB (test code = Ca Ion WB) 1.13 1.05-1.25 [facility] HospitalCHEM QRXTB1106-05-47 05:59:00 Test Item Value Reference Range Interpretation Comments Phosphorus (test code = Phosphorus) 2.9 2.5-4.5 [facility]2017-07-09 05:59:00 Test Item Value Reference Range Interpretation Comments Magnesium Lvl (test code = Magnesium 1.9 1.8-2.4 Lvl) [facility]DsvbruoVSATHJXVMUYU8970-60-27 05:59:00 Test Item Value Reference Range Interpretation Comments AGAP (test code = AGAP) 12.6 10.0-20.0 [facility] HospitalPtbylgwRLYFILFLXEWZ8137-98-41 05:59:00 Test Item Value Reference Range Interpretation Comments BUN (test code = BUN) 6 7-22 [facility] HospitalAchwsuzTHYQCWGDVLTS1193-93-91 05:59:00 Test Item Value Reference Range Interpretation Comments Glucose Lvl (test code = Glucose Lvl) 82 70-99 [facility] HospitalKneffnlFYQDNYZGKVXW7425-78-54 05:59:00 Test Item Value Reference Range Interpretation Comments Creatinine Lvl (test code = Creatinine 0.97 0.50-1.40 Lvl) [facility] HospitalLgvajenBWXOQKNNMZYU6864-34-22 05:59:00 Test Item Value Reference Range Interpretation Comments Sodium Lvl (test code = Sodium Lvl) 140 135-145 [facility] HospitalBfuvrojLXYFOFUSHAWB8387-37-40 05:59:00 Test Item Value Reference Range Interpretation Comments CO2 (test code = CO2) 24 24-32 [facility] HospitalHijrdelPJTHIUHSAOPO1382-89-04 05:59:00 Test Item Value Reference Range Interpretation Comments Potassium Lvl (test code = Potassium 3.6 3.5-5.1 Lvl) [facility] HospitalNgiyxhrISPQVFOXIWAB7680-61-97 05:59:00 Test Item Value Reference Range Interpretation Comments Chloride Lvl (test code = Chloride Lvl) 107 95-109 [facility] HospitalXevvtbjARWWTNTNLUCL4359-00-24 05:59:00 Test Item Value Reference Range Interpretation Comments Calcium Lvl (test code = Calcium Lvl) 8.9 8.5-10.5 [facility] CenterAvbjkvwUMKHHNITSPIU9633-21-16 05:59:00 Test Item Value Reference Range Interpretation Comments eGFR (test code = eGFR) 106 [facility] HospitalAylctvuCMRNBFVONW5589-01-32 05:59:00 Test Item Value Reference Range Interpretation Comments Basophils # (test code 0.1 See_Comment [Aut omated message] The = Basophils #) system which generated this result tra nsmitted reference range : <=0.2. The reference r yadira was not used to int erpret this result as normal/abnormal . [facility] HospitalMsgzlunSUGWJLYGTJ8452-29-66 05:59:00 Test Item Value Reference Range Interpretation Comments Eosinophils # (test code 0.2 See_Comment [A utomated message] The = Eosinophils #) system whic h generated this result tra nsmitted reference range : <=0.5. The reference r yadira was not used to int erpret this result as normal/abnormal . [facility] HospitalBunzldkIOHYALMFMJ8548-69-33 05:59:00 Test Item Value Reference Range Interpretation Comments Lymphocytes (test code = Lymphocytes) 21.9 20.0-40.0 [facility] HospitalDezopxaGQKDLHYJRO6503-33-50 05:59:00 Test Item Value Reference Range Interpretation Comments Segs (test code = Segs) 65.2 45.0-75.0 [facility] HospitalFwxrjoaQHBJHJOTOF1065-70-99 05:59:00 Test Item Value Reference Range Interpretation Comments Eosinophils (test code = 1.7 See_Comment [A utomated message] The Eosinophils) system which ge nerated this result tra nsmitted reference range : <=4.0. The reference r yadira was not used to int erpret this result as normal/abnormal . [facility] HospitalIhusveaOKRIANNZLB5089-77-10 05:59:00 Test Item Value Reference Range Interpretation Comments Monocytes (test code = Monocytes) 10.3 2.0-12.0 [facility] HospitalPfbpjwqYPCOLSDQMS0952-83-08 05:59:00 Test Item Value Reference Range Interpretation Comments Basophils (test code = 0.9 See_Comment [Aut omated message] The Basophils) system which ge nerated this result tra nsmitted reference range : <=1.0. The reference r yadira was not used to int erpret this result as normal/abnormal . [facility] HospitalEidtdpfTNWABFEQBO5626-24-87 05:59:00 Test Item Value Reference Range Interpretation Comments Segs-Bands # (test code = Segs-Bands #) 8.5 1.5-8.1 [facility] HospitalLnvvlbqVPIXIXLIEX5975-53-17 05:59:00 Test Item Value Reference Range Interpretation Comments Monocytes # (test code 1.3 See_Comment [Aut omated message] The = Monocytes #) system which generated this result tra nsmitted reference range : <=0.8. The reference r yadira was not used to int erpret this result as normal/abnormal . [facility] HospitalHmuxbpmPIJTEFMZDS8830-88-25 05:59:00 Test Item Value Reference Range Interpretation Comments Lymphocytes # (test code = Lymphocytes 2.8 1.0-5.5 #) [facility] HospitalKswwqqoFUIPZSXLOI7002-29-83 05:59:00 Test Item Value Reference Range Interpretation Comments MPV (test code = MPV) 7.5 7.4-10.4 [facility] HospitalRfpmdwiHDJAHLUIQZ2174-55-06 05:59:00 Test Item Value Reference Range Interpretation Comments Platelet (test code = Platelet) 298 133-450 [facility] HospitalGxrmyfrBYGHDRIOWV8377-38-16 05:59:00 Test Item Value Reference Range Interpretation Comments RDW (test code = RDW) 13.6 11.5-14.5 [facility] HospitalPcqjlsbPCRQYCSZRY5987-05-85 05:59:00 Test Item Value Reference Range Interpretation Comments MCV (test code = MCV) 91.7 80.0-94.0 [facility] HospitalOvhgfexUKCEQMCTTE8812-73-25 05:59:00 Test Item Value Reference Range Interpretation Comments Hct (test code = Hct) 38.2 42.0-54.0 [facility] HospitalDlvayvdQGMYESMJBB6277-80-19 05:59:00 Test Item Value Reference Range Interpretation Comments MCH (test code = MCH) 31.3 pg 27.0-31.0 [facility] HospitalXqffofjEBUUDRDCEZ7537-55-59 05:59:00 Test Item Value Reference Range Interpretation Comments MCHC (test code = MCHC) 34.1 32.0-36.0 [facility] HospitalXexrcyeLHATVXPVHI4184-75-49 05:59:00 Test Item Value Reference Range Interpretation Comments Hgb (test code = Hgb) 13.0 14.0-18.0 [facility] HospitalYejnaktFZFWMZJXST3965-66-01 05:59:00 Test Item Value Reference Range Interpretation Comments RBC (test code = RBC) 4.16 4.70-6.10 [facility] HospitalNzywjyqFRWMOLGJSD0948-81-31 05:59:00 Test Item Value Reference Range Interpretation Comments WBC (test code = WBC) 13.0 3.7-10.4 [facility] HospitalPARATHYROID ACEAGHP6027-58-22 05:59:00 Test Item Value Reference Range Interpretation Comments Ca Ion WB (test code = Ca Ion WB) 1.10 1.05-1.25 [facility] HospitalPARATHYROID VZUQSPR6761-80-15 05:59:00 Test Item Value Reference Range Interpretation Comments Ca Norm WB (test code = Ca Norm WB) 1.07 1.05-1.25 [facility] HospitalDxncnasTGNJUDAZFJ8243-68-13 05:59:00 Test Item Value Reference Range Interpretation Comments Phenytoin Free (test code = Phenytoin 2.35 1.00-2.00 Free) [facility] HospitalAepsrtrDDJOJLVIOW4690-52-93 05:59:00 Test Item Value Reference Range Interpretation Comments Phenytoin Total (test code = Phenytoin 24.7 10.0-20.0 Total) [facility]2017-07-08 19:27:00 Test Item Value Reference Range Interpretation Comments eGFR (test code = eGFR) 95 [facility]2017-07-08 19:27:00 Test Item Value Reference Range Interpretation Comments Chloride Lvl (test code = Chloride Lvl) 108 95-109 [facility]2017-07-08 19:27:00 Test Item Value Reference Range Interpretation Comments CO2 (test code = CO2) 23 24-32 [facility]2017-07-08 19:27:00 Test Item Value Reference Range Interpretation Comments Calcium Lvl (test code = Calcium Lvl) 8.7 8.5-10.5 [facility]2017-07-08 19:27:00 Test Item Value Reference Range Interpretation Comments AGAP (test code = AGAP) 13.6 10.0-20.0 [facility]2017-07-08 19:27:00 Test Item Value Reference Range Interpretation Comments BUN (test code = BUN) 8 7-22 [facility]2017-07-08 19:27:00 Test Item Value Reference Range Interpretation Comments Glucose Lvl (test code = Glucose Lvl) 94 70-99 [facility]2017-07-08 19:27:00 Test Item Value Reference Range Interpretation Comments Potassium Lvl (test code = Potassium 3.6 3.5-5.1 Lvl) [facility]2017-07-08 19:27:00 Test Item Value Reference Range Interpretation Comments Sodium Lvl (test code = Sodium Lvl) 141 135-145 [facility]2017-07-08 19:27:00 Test Item Value Reference Range Interpretation Comments Creatinine Lvl (test code = Creatinine 1.07 0.50-1.40 Lvl) [facility] HospitalKyurbjdPHPAGLMPVU1786-83-96 19:27:00 Test Item Value Reference Range Interpretation Comments Phenytoin Free (test code = Phenytoin 2.26 1.00-2.00 Free) [facility]2017-07-08 14:19:00 Test Item Value Reference Range Interpretation Comments Lactic Acid Lvl (test code = Lactic 1.0 0.5-2.2 Acid Lvl) [facility] AND [id number] 14:19:00 Test Item Value Reference Range Interpretation Comments UA pH (test code = UA pH) 6.5 5.0-8.0 [facility] AND [id number] 14:19:00 Test Item Value Reference Range Interpretation Comments UA Spec Grav (test code = UA Spec Grav) 1.014 [facility] AND [id number] 14:19:00 Test Item Value Reference Range Interpretation Comments UA Ketones (test code = UA Negative mg/dL Ketones) [facility] AND [id number] 14:19:00 Test Item Value Reference Range Interpretation Comments UA Protein (test code = UA Protein) 30 mg/dL [facility] AND [id number] 14:19:00 Test Item Value Reference Range Interpretation Comments UA Turbidity (test code Marked *ABN*(08/24/16 = UA Turbidity) 9:19 AM) [facility] AND [id number] 14:19:00 Test Item Value Reference Range Interpretation Comments UA Color (test code = Yellow *NA*(08/24/16 9:19 UA Color) AM) [facility] AND [id number] 14:19:00 Test Item Value Reference Range Interpretation Comments UA Amorph Elizabeth (test code = UA Many /HPF Amorph Elizabeth) [facility] AND [id number] 14:19:00 Test Item Value Reference Range Interpretation Comments UA Leuk Est (test Negative (08/24/16 9:19 code = UA Leuk Est) AM) [facility] AND [id number] 14:19:00 Test Item Value Reference Range Interpretation Comments UA RBC (test code = 10 See_Comment [Automa michelle message] The UA RBC) system which ge nerated this result transmit michelle reference range : <=2. The reference range was not used to interpr et this result as meme l/abnormal. [facility] AND [id number] 14:19:00 Test Item Value Reference Range Interpretation Comments UA Urobilinogen (test code = UA <=1.0 mg/dL 0.1-1.0 Urobilinogen) [facility] AND [id number] 14:19:00 Test Item Value Reference Range Interpretation Comments UA Glucose (test code = UA Negative mg/dL Glucose) [facility] AND [id number] 14:19:00 Test Item Value Reference Range Interpretation Comments UA Nitrite (test code Negative (08/24/16 9:19 = UA Nitrite) AM) [facility] AND [id number] 14:19:00 Test Item Value Reference Range Interpretation Comments UA Bili (test code = Negative *NA*(08/24/16 UA Bili) 9:19 AM) [facility] AND [id number] 14:19:00 Test Item Value Reference Range Interpretation Comments UA Blood (test code = Moderate *ABN*(08/24/16 UA Blood) 9:19 AM) [facility] AND [id number] 14:19:00 Test Item Value Reference Range Interpretation Comments UA Sq Epi (test code = UA Sq Epi) None [facility]en [facility]annBACT[facility] - [id number] 09:39:00 Test Item Value Reference Range Interpretation Comments MRSA by PCR (test Negative (08/24/16 4:39 code = MRSA by PCR) AM) [facility]CHEM [id number] 09:38:00 Test Item Value Reference Range Interpretation Comments Bili Total (test code = Bili Total) 0.5 0.2-1.3 [facility]2017-07-08 09:38:00 Test Item Value Reference Range Interpretation Comments ALT (test code = ALT) 29 See_Comment [Auto mated message] The system which ge nerated this result transmit michelle reference range : <=65. The reference range was not used to interpr et this result as meme l/abnormal. [facility]2017-07-08 09:38:00 Test Item Value Reference Range Interpretation Comments Globulin (test code = Globulin) 3.6 2.7-4.2 [facility]2017-07-08 09:38:00 Test Item Value Reference Range Interpretation Comments A/G Ratio (test code = A/G Ratio) 1.0 0.7-1.6 [facility]2017-07-08 09:38:00 Test Item Value Reference Range Interpretation Comments Alk Phos (test code = Alk Phos) 96 39-136 [facility]2017-07-08 09:38:00 Test Item Value Reference Range Interpretation Comments AST (test code = AST) 23 See_Comment [Auto mated message] The system which ge nerated this result transmit michelle reference range : <=37. The reference range was not used to interpr et this result as meme l/abnormal. [facility]2017-07-08 09:38:00 Test Item Value Reference Range Interpretation Comments Albumin Lvl (test code = Albumin Lvl) 3.7 3.5-5.0 [facility]2017-07-08 09:38:00 Test Item Value Reference Range Interpretation Comments Total Protein (test code = Total 7.3 6.4-8.4 Protein) [facility]2017-07-08 09:38:00 Test Item Value Reference Range Interpretation Comments B/C Ratio (test code = See Note 4(08/24/16 4:38 6-25 B/C Ratio) AM) [facility]2017-07-08 09:38:00 Test Item Value Reference Range Interpretation Comments Phosphorus (test code = Phosphorus) 3.9 2.5-4.5 [facility]2017-07-08 09:38:00 Test Item Value Reference Range Interpretation Comments Magnesium Lvl (test code = Magnesium 2.3 1.8-2.4 Lvl) [facility] Hospit[id number] 09:38:00 Test Item Value Reference Range Interpretation Comments MPV (test code = MPV) 7.4 7.4-10.4 [facility] HospitalPvuzxaeZPNHBUYQVY5465-38-14 09:38:00 Test Item Value Reference Range Interpretation Comments Platelet (test code = Platelet) 351 133-450 [facility] HospitalGcxziljNSFLVULYEZ6797-31-52 09:38:00 Test Item Value Reference Range Interpretation Comments RDW (test code = RDW) 13.2 11.5-14.5 [facility] HospitalKsyiwwoNTABPSUSPP2934-99-85 09:38:00 Test Item Value Reference Range Interpretation Comments RBC (test code = RBC) 4.65 4.70-6.10 [facility] HospitalPptmwzpVTSRJKZEWV9933-36-84 09:38:00 Test Item Value Reference Range Interpretation Comments WBC (test code = WBC) 19.6 3.7-10.4 [facility] HospitalLvghpakLKBKXAZSBL1064-46-18 09:38:00 Test Item Value Reference Range Interpretation Comments Hct (test code = Hct) 43.0 42.0-54.0 [facility] HospitalLsxamngTVMNPEGXYV5197-34-53 09:38:00 Test Item Value Reference Range Interpretation Comments Hgb (test code = Hgb) 14.1 14.0-18.0 [facility] HospitalGrvonpvVZZDKZLZVL6569-49-35 09:38:00 Test Item Value Reference Range Interpretation Comments MCV (test code = MCV) 92.5 80.0-94.0 [facility] HospitalJrbirrlPFQPKNABMP4396-93-08 09:38:00 Test Item Value Reference Range Interpretation Comments MCHC (test code = MCHC) 32.8 32.0-36.0 [facility] HospitalHsipjtyXVECTIOJLV5885-82-65 09:38:00 Test Item Value Reference Range Interpretation Comments MCH (test code = MCH) 30.3 pg 27.0-31.0 [facility] HospitalOdgdfppOUQCYRCLYN7494-46-06 09:38:00 Test Item Value Reference Range Interpretation Comments Eosinophils # (test code 0.1 See_Comment [A utomated message] The = Eosinophils #) system whic h generated this result tra nsmitted reference range : <=0.5. The reference r yadira was not used to int erpret this result as normal/abnormal . [facility] HospitalNwdezekQZIZABVURK3630-18-72 09:38:00 Test Item Value Reference Range Interpretation Comments Basophils # (test code 0.1 See_Comment [Aut omated message] The = Basophils #) system which generated this result tra nsmitted reference range : <=0.2. The reference r yadira was not used to int erpret this result as normal/abnormal . [facility] Hospit[id number] 09:38:00 Test Item Value Reference Range Interpretation Comments Segs-Bands # (test code = Segs-Bands #) 14.9 1.5-8.1 [facility] HospitalJmpptmsEYTWTPIVWI7004-75-96 09:38:00 Test Item Value Reference Range Interpretation Comments Monocytes # (test code 2.0 See_Comment [Aut omated message] The = Monocytes #) system which generated this result tra nsmitted reference range : <=0.8. The reference r yadira was not used to int erpret this result as normal/abnormal . [facility] HospitalPixwerrSCLZSLDYCI5328-38-09 09:38:00 Test Item Value Reference Range Interpretation Comments Lymphocytes # (test code = Lymphocytes 2.6 1.0-5.5 #) [facility] HospitalGbasrxbSLRRKKOUGP1703-71-39 09:38:00 Test Item Value Reference Range Interpretation Comments Lymphocytes (test code = Lymphocytes) 13.0 20.0-40.0 [facility] HospitalLvkvgxdGIDEHUKTHK2924-26-41 09:38:00 Test Item Value Reference Range Interpretation Comments Segs (test code = Segs) 76.0 45.0-75.0 [facility] HospitalDjgtysvCJBEPZGAWY7321-74-97 09:38:00 Test Item Value Reference Range Interpretation Comments Monocytes (test code = Monocytes) 10.2 2.0-12.0 [facility] Hospit[id number] 09:38:00 Test Item Value Reference Range Interpretation Comments Basophils (test code = 0.4 See_Comment [Aut omated message] The Basophils) system which ge nerated this result tra nsmitted reference range : <=1.0. The reference r yadira was not used to int erpret this result as normal/abnormal . [facility] HospitalDqofgvuQYRESMJLOJ7716-08-23 09:38:00 Test Item Value Reference Range Interpretation Comments Eosinophils (test code = 0.4 See_Comment [A utomated message] The Eosinophils) system which ge nerated this result tra nsmitted reference range : <=4.0. The reference r yadira was not used to int erpret this result as normal/abnormal . [facility]annPARATHYROID [id number] 09:38:00 Test Item Value Reference Range Interpretation Comments Ca Ion WB (test code = Ca Ion WB) 0.95 1.05-1.25 [facility]annPARATHYROID [id number] 09:38:00 Test Item Value Reference Range Interpretation Comments Ca Norm WB (test code = Ca Norm WB) 0.97 1.05-1.25 [facility] WsyajmeGJGAMBFSSI2925-69-88 09:38:00 Test Item Value Reference Range Interpretation Comments Lamotrigine Lvl (test code = 8.2 2.0-20.0 Lamotrigine Lvl) [facility] [id number] 09:38:00 Test Item Value Reference Range Interpretation Comments Zonisamide Lvl (test code = Zonisamide 45.3 10.0-40.0 Lvl) [facility] [id number] 06:06:00 Test Item Value Reference Range Interpretation Comments U Amph Scr (test code Negative *NA*(08/24/16 = U Amph Scr) 1:06 AM) [facility] [id number] 06:06:00 Test Item Value Reference Range Interpretation Comments U Cocaine Scr (test Negative *NA*(08/24/16 code = U Cocaine Scr) 1:06 AM) [facility] [id number] 06:06:00 Test Item Value Reference Range Interpretation Comments U Cannab Scr (test Negative *NA*(08/24/16 code = U Cannab Scr) 1:06 AM) [facility] [id number] 06:06:00 Test Item Value Reference Range Interpretation Comments U Opiate Scr (test Negative *NA*(08/24/16 code = U Opiate Scr) 1:06 AM) [facility] [id number] 06:06:00 Test Item Value Reference Range Interpretation Comments U Phencyc Scr (test Negative *NA*(08/24/16 code = U Phencyc Scr) 1:06 AM) [facility] [id number] 06:06:00 Test Item Value Reference Range Interpretation Comments U Methadone Scr (test Negative *NA*(08/24/16 code = U Methadone Scr) 1:06 AM) [facility] [id number] 06:06:00 Test Item Value Reference Range Interpretation Comments U Helen Scr (test code Negative *NA*(08/24/16 = U Helen Scr) 1:06 AM) [facility] [id number] 06:06:00 Test Item Value Reference Range Interpretation Comments U Benzodia Scr (test Positive *ABN*(08/24/16 code = U Benzodia Scr) 1:06 AM) [facility] [id number] 06:06:00 Test Item Value Reference Range Interpretation Comments U Propoxyph Scr (test Negative *NA*(08/24/16 code = U Propoxyph Scr) 1:06 AM) [facility] [id number] 06:06:00 Test Item Value Reference Range Interpretation Comments UDS Note (test code = See Note (08/24/16 1:06 UDS Note) AM) [facility] [id number] 06:06:00 Test Item Value Reference Range Interpretation Comments UA WBC (test code = 1 See_Comment [Automa michelle message] The UA WBC) system which ge nerated this result transmit michelle reference range : <=5. The reference range was not used to interpr et this result as meme l/abnormal. [facility] [id number] 06:06:00 Test Item Value Reference Range Interpretation Comments UA Mucus (test code = UA Mucus) Few /LPF [facility] [id number] 06:06:00 Test Item Value Reference Range Interpretation Comments UA Sq Epi (test code = UA Sq Epi) None Seen [facility] [id number] 06:06:00 Test Item Value Reference Range Interpretation Comments UA Urobilinogen (test code = UA <=1.0 mg/dL 0.1-1.0 Urobilinogen) [facility] [id number] 06:06:00 Test Item Value Reference Range Interpretation Comments UA Color (test code = Light Yellow UA Color) *NA*(08/24/16 1:06 AM) [facility] [id number] 06:06:00 Test Item Value Reference Range Interpretation Comments UA Turbidity (test code = Clear (08/24/16 1:06 UA Turbidity) AM) [facility] AND [id number] 06:06:00 Test Item Value Reference Range Interpretation Comments UA Glucose (test code = UA Negative mg/dL Glucose) [facility] AND [id number] 06:06:00 Test Item Value Reference Range Interpretation Comments UA Ketones (test code = UA Negative mg/dL Ketones) [facility] AND [id number] 06:06:00 Test Item Value Reference Range Interpretation Comments UA Protein (test code = UA Protein) 30 mg/dL [facility] AND [id number] 06:06:00 Test Item Value Reference Range Interpretation Comments UA Spec Grav (test code = UA Spec Grav) 1.006 [facility] AND [id number] 06:06:00 Test Item Value Reference Range Interpretation Comments UA pH (test code = UA pH) 7.5 5.0-8.0 [facility] AND [id number] 06:06:00 Test Item Value Reference Range Interpretation Comments UA Bili (test code = Negative *NA*(08/24/16 UA Bili) 1:06 AM) [facility] AND [id number] 06:06:00 Test Item Value Reference Range Interpretation Comments UA Blood (test code = Negative (08/24/16 1:06 UA Blood) AM) [facility] AND [id number] 06:06:00 Test Item Value Reference Range Interpretation Comments UA Nitrite (test code Negative (08/24/16 1:06 = UA Nitrite) AM) [facility] AND [id number] 06:06:00 Test Item Value Reference Range Interpretation Comments UA Leuk Est (test Negative (08/24/16 1:06 code = UA Leuk Est) AM) [facility] AND [id number] 06:06:00 Test Item Value Reference Range Interpretation Comments UA pH (test code = UA pH) 7.0 1 5.0-8.0 [facility] AND [id number] 06:06:00 Test Item Value Reference Range Interpretation Comments UA Protein (test code = UA Protein) 30 mg/dL [facility] AND [id number] 06:06:00 Test Item Value Reference Range Interpretation Comments UA Glucose (test code Negative (08/24/16 1:06 = UA Glucose) AM) [facility] AND [id number] 06:06:00 Test Item Value Reference Range Interpretation Comments UA Ketones (test code Negative *NA*(08/24/16 = UA Ketones) 1:06 AM) [facility] AND [id number] 06:06:00 Test Item Value Reference Range Interpretation Comments UA Bili (test code = Negative *NA*(08/24/16 UA Bili) 1:06 AM) [facility] AND [id number] 06:06:00 Test Item Value Reference Range Interpretation Comments UA Nitrite (test code Negative (08/24/16 1:06 = UA Nitrite) AM) [facility] AND [id number] 06:06:00 Test Item Value Reference Range Interpretation Comments UA Leuk Est (test Negative (08/24/16 1:06 code = UA Leuk Est) AM) [facility] AND [id number] 06:06:00 Test Item Value Reference Range Interpretation Comments UA Sq Epi (test code = None Seen (08/24/16 1:06 UA Sq Epi) AM) [facility] AND [id number] 06:06:00 Test Item Value Reference Range Interpretation Comments UA WBC (test code = UA None Seen (08/24/16 1:06 WBC) AM) [facility] AND [id number] 06:06:00 Test Item Value Reference Range Interpretation Comments UA RBC (test None Seen See_Comment [Automated mes maggie] code = UA RBC) (08/24/16 1:06 AM) [employer] which generated this result transmitted ref erence range: <=2. The reference range was not used to int erpret this result as normal/abnormal . [facility] AND [id number] 06:06:00 Test Item Value Reference Range Interpretation Comments UA Color (test code = Yellow *NA*(08/24/16 1:06 UA Color) AM) [facility] AND [id number] 06:06:00 Test Item Value Reference Range Interpretation Comments UA Turbidity (test code = Clear (08/24/16 1:06 UA Turbidity) AM) [facility] AND [id number] 06:06:00 Test Item Value Reference Range Interpretation Comments UA Spec Grav (test code = UA Spec 1.010 1 Grav) [facility] AND [id number] 06:06:00 Test Item Value Reference Range Interpretation Comments UA Urobilinogen (test code = UA 0.2 0.1-1.0 Urobilinogen) [facility] AND [id number] 06:06:00 Test Item Value Reference Range Interpretation Comments UA Hyal Cast 0-2 (08/24/16 1:06 See_Comment [Automated message] (test code = UA AM) The system w [facility] Hyal Cast) generated this result transmitted ref erence range: <=2. The reference range was not used to int erpret this result as normal/abnormal . [facility] AND [id number] 06:06:00 Test Item Value Reference Range Interpretation Comments UA Blood (test code = Trace *ABN*(08/24/16 UA Blood) 1:06 AM) [facility] [id number] 04:15:00 Test Item Value Reference Range Interpretation Comments Phenytoin Total (test code = Phenytoin no gt 10.0-20.0 Total) [facility] [id number] 04:15:00 Test Item Value Reference Range Interpretation Comments Carbamaz Lvl (test code = Carbamaz Lvl) no gt 4.0-12.0 [facility] [id number] 04:15:00 Test Item Value Reference Range Interpretation Comments Valproic Acid Lvl (test code = Valproic no gt 50-100 Acid Lvl) [facility] Cam[id number] 08:26:00 Test Item Value Reference Range Interpretation Comments Potassium Lvl (test code = Potassium 3.3 3.5-5.1 Lvl) [facility] [id number] 08:26:00 Test Item Value Reference Range Interpretation Comments Segs (test code = Segs) 60.9 45.0-75.0 [facility] HospitalIogywvyVKNBZMEHLM5318-27-80 08:26:00 Test Item Value Reference Range Interpretation Comments Basophils (test code = 0.9 See_Comment [Aut omated message] The Basophils) system which ge nerated this result tra nsmitted reference range : <=1.0. The reference r yadira was not used to int erpret this result as normal/abnormal . [facility] Hospit[id number] 08:26:00 Test Item Value Reference Range Interpretation Comments Eosinophils (test code = 2.9 See_Comment [A utomated message] The Eosinophils) system which ge nerated this result tra nsmitted reference range : <=4.0. The reference r yadira was not used to int erpret this result as normal/abnormal . [facility] [id number] 08:26:00 Test Item Value Reference Range Interpretation Comments Lymphocytes (test code = Lymphocytes) 24.4 20.0-40.0 [facility] H[id number] 08:26:00 Test Item Value Reference Range Interpretation Comments Monocytes (test code = Monocytes) 10.9 2.0-12.0 [facility] HospitalCmfrkenIKCSWMCVWH5664-90-24 08:26:00 Test Item Value Reference Range Interpretation Comments Basophils # (test code 0.1 See_Comment [Aut omated message] The = Basophils #) system which generated this result tra nsmitted reference range : <=0.2. The reference r yadira was not used to int erpret this result as normal/abnormal . [facility] HospitalArwabmbEPFJODDQRR1953-45-14 08:26:00 Test Item Value Reference Range Interpretation Comments Eosinophils # (test code 0.4 See_Comment [A utomated message] The = Eosinophils #) system [facility] generated this result tra nsmitted reference range : <=0.5. The reference r yadira was not used to int erpret this result as normal/abnormal . [facility] H[id number] 08:26:00 Test Item Value Reference Range Interpretation Comments Lymphocytes # (test code = Lymphocytes 3.3 1.0-5.5 #) [facility] H[id number] 08:26:00 Test Item Value Reference Range Interpretation Comments Monocytes # (test code 1.5 See_Comment [Aut omated message] The = Monocytes #) system which generated this result tra nsmitted reference range : <=0.8. The reference r yadira was not used to int erpret this result as normal/abnormal . [facility] HospitalWfuolbiAYBSLIVVNL9823-29-54 08:26:00 Test Item Value Reference Range Interpretation Comments Segs-Bands # (test code = Segs-Bands #) 8.2 1.5-8.1 [facility] Hos[id number] 08:26:00 Test Item Value Reference Range Interpretation Comments Platelet (test code = Platelet) 259 133-450 [facility] HospitalDwkczjeZDFWKCYVRD3837-13-35 08:26:00 Test Item Value Reference Range Interpretation Comments MPV (test code = MPV) 8.2 7.4-10.4 [facility] HospitalOqtrsskUNDKTFEWEU1842-19-58 08:26:00 Test Item Value Reference Range Interpretation Comments Hct (test code = Hct) 41.1 42.0-54.0 [facility] HospitalAofkoepCDUQHJWAMY4692-34-01 08:26:00 Test Item Value Reference Range Interpretation Comments MCHC (test code = MCHC) 32.5 32.0-36.0 [facility] HospitalNchmlrkYKNSLXBACF1225-14-85 08:26:00 Test Item Value Reference Range Interpretation Comments Hgb (test code = Hgb) 13.3 14.0-18.0 [facility] HospitalHdwqllqGHOJUXZWQJ8858-44-01 08:26:00 Test Item Value Reference Range Interpretation Comments RDW (test code = RDW) 13.7 11.5-14.5 [facility] HospitalYfexvytCHBTBKANWQ6598-27-45 08:26:00 Test Item Value Reference Range Interpretation Comments MCH (test code = MCH) 30.0 pg 27.0-31.0 [facility] Ho[id number] 08:26:00 Test Item Value Reference Range Interpretation Comments MCV (test code = MCV) 92.3 80.0-94.0 [facility] HospitalFhvtsebVESQLRMJXN7375-29-94 08:26:00 Test Item Value Reference Range Interpretation Comments WBC (test code = WBC) 13.5 3.7-10.4 [facility] Hospit[id number] 08:26:00 Test Item Value Reference Range Interpretation Comments RBC (test code = RBC) 4.45 4.70-6.10 [place] [id number] 21:01:00 Test Item Value Reference Range Interpretation Comments Phenytoin Total (test code = Phenytoin 10.7 10.0-20.0 Total) [place] [id number] 21:01:00 Test Item Value Reference Range Interpretation Comments Phenytoin Free (test code = Phenytoin 0.87 1.00-2.00 Free) [facility] HospitalBACTERIAL - [id number] 18:10:00 Test Item Value Reference Range Interpretation Comments MRSA by PCR (test Negative (08/07/16 1:10 code = MRSA by PCR) PM) [facility]2017-06-21 18:10:00 Test Item Value Reference Range Interpretation Comments eGFR (test code = eGFR) 131 [facility]2017-06-21 18:10:00 Test Item Value Reference Range Interpretation Comments Calcium Lvl (test code = Calcium Lvl) 7.9 8.5-10.5 [facility]2017-06-21 18:10:00 Test Item Value Reference Range Interpretation Comments Potassium Lvl (test code = Potassium 3.1 3.5-5.1 Lvl) [facility]2017-06-21 18:10:00 Test Item Value Reference Range Interpretation Comments AGAP (test code = AGAP) 14.1 10.0-20.0 [facility]2017-06-21 18:10:00 Test Item Value Reference Range Interpretation Comments CO2 (test code = CO2) 20 24-32 [facility]2017-06-21 18:10:00 Test Item Value Reference Range Interpretation Comments Chloride Lvl (test code = Chloride Lvl) 110 95-109 [facility]2017-06-21 18:10:00 Test Item Value Reference Range Interpretation Comments Creatinine Lvl (test code = Creatinine 0.68 0.50-1.40 Lvl) [facility]2017-06-21 18:10:00 Test Item Value Reference Range Interpretation Comments Sodium Lvl (test code = Sodium Lvl) 141 135-145 [facility]2017-06-21 18:10:00 Test Item Value Reference Range Interpretation Comments Glucose Lvl (test code = Glucose Lvl) 70 70-99 [facility]2017-06-21 18:10:00 Test Item Value Reference Range Interpretation Comments BUN (test code = BUN) 4 7-22 [facility]2017-06-21 18:10:00 Test Item Value Reference Range Interpretation Comments Magnesium Lvl (test code = Magnesium 2.0 1.8-2.4 Lvl) [facility] [id number] 18:10:00 Test Item Value Reference Range Interpretation Comments Phosphorus (test code = Phosphorus) 2.5 2.5-4.5 [facility]annPARATHYROID [id number] 18:10:00 Test Item Value Reference Range Interpretation Comments Ca Ion WB (test code = Ca Ion WB) 1.09 1.05-1.25 [facility]annPARATHYROID [id number] 18:10:00 Test Item Value Reference Range Interpretation Comments Ca Norm WB (test code = Ca Norm WB) 1.06 1.05-1.25 [facility] [id number] 07:45:00 Test Item Value Reference Range Interpretation Comments UDS Note (test code = See Note (08/07/16 2:45 UDS Note) AM) [facility] [id number] 07:45:00 Test Item Value Reference Range Interpretation Comments U Phencyc Scr (test Negative *NA*(08/07/16 code = U Phencyc Scr) 2:45 AM) [facility] [id number] 07:45:00 Test Item Value Reference Range Interpretation Comments U Opiate Scr (test Negative *NA*(08/07/16 code = U Opiate Scr) 2:45 AM) [facility] [id number] 07:45:00 Test Item Value Reference Range Interpretation Comments U Amph Scr (test code Negative *NA*(08/07/16 = U Amph Scr) 2:45 AM) [facility] [id number] 07:45:00 Test Item Value Reference Range Interpretation Comments U Helen Scr (test code Negative *NA*(08/07/16 = U Helen Scr) 2:45 AM) [facility] [id number] 07:45:00 Test Item Value Reference Range Interpretation Comments U Benzodia Scr (test Positive *ABN*(08/07/16 code = U Benzodia Scr) 2:45 AM) [facility] [id number] 07:45:00 Test Item Value Reference Range Interpretation Comments U Cannab Scr (test Positive *ABN*(08/07/16 code = U Cannab Scr) 2:45 AM) [facility] [id number] 07:45:00 Test Item Value Reference Range Interpretation Comments U Cocaine Scr (test Negative *NA*(08/07/16 code = U Cocaine Scr) 2:45 AM) [facility] [id number] 07:45:00 Test Item Value Reference Range Interpretation Comments UA Urobilinogen (test code = UA <=1.0 mg/dL 0.1-1.0 Urobilinogen) [facility] [id number] 07:45:00 Test Item Value Reference Range Interpretation Comments UA Blood (test code = Negative (08/07/16 2:45 UA Blood) AM) [facility] [id number] 07:45:00 Test Item Value Reference Range Interpretation Comments UA Ketones (test code = UA Ketones) 80 mg/dL [facility] [id number] 07:45:00 Test Item Value Reference Range Interpretation Comments UA Bili (test code = Negative *NA*(08/07/16 UA Bili) 2:45 AM) [facility] [id number] 07:45:00 Test Item Value Reference Range Interpretation Comments UA WBC (test code = 1 See_Comment [Automa michelle message] The UA WBC) system which ge nerated this result transmit michelle reference range : <=5. The reference range was not used to interpr et this result as meme l/abnormal. [facility] [id number] 07:45:00 Test Item Value Reference Range Interpretation Comments UA Nitrite (test code Negative (08/07/16 2:45 = UA Nitrite) AM) [facility] [id number] 07:45:00 Test Item Value Reference Range Interpretation Comments UA Leuk Est (test Negative (08/07/16 2:45 code = UA Leuk Est) AM) [facility] [id number] 07:45:00 Test Item Value Reference Range Interpretation Comments UA Sq Epi (test code = UA Sq Epi) None Seen [facility] [id number] 07:45:00 Test Item Value Reference Range Interpretation Comments UA Mucus (test code = UA Mucus) Few /LPF [facility] [id number] 07:45:00 Test Item Value Reference Range Interpretation Comments UA Turbidity (test code = Clear (08/07/16 2:45 UA Turbidity) AM) [facility] AND [id number] 07:45:00 Test Item Value Reference Range Interpretation Comments UA Color (test code = Yellow *NA*(08/07/16 UA Color) 2:45 AM) [facility] AND [id number] 07:45:00 Test Item Value Reference Range Interpretation Comments UA Spec Grav (test code = UA Spec Grav) 1.009 [facility] AND [id number] 07:45:00 Test Item Value Reference Range Interpretation Comments UA Protein (test code = UA Negative mg/dL Protein) [facility] AND [id number] 07:45:00 Test Item Value Reference Range Interpretation Comments UA pH (test code = UA pH) 6.5 5.0-8.0 [facility] AND [id number] 07:45:00 Test Item Value Reference Range Interpretation Comments UA Glucose (test code = UA Negative mg/dL Glucose) [facility]2017-06-21 07:32:00 Test Item Value Reference Range Interpretation Comments Phosphorus (test code = Phosphorus) 2.4 2.5-4.5 [facility]2017-06-21 07:32:00 Test Item Value Reference Range Interpretation Comments BUN (test code = BUN) 7 7-22 [facility]2017-06-21 07:32:00 Test Item Value Reference Range Interpretation Comments Glucose Lvl (test code = Glucose Lvl) 53 70-99 [facility]2017-06-21 07:32:00 Test Item Value Reference Range Interpretation Comments Sodium Lvl (test code = Sodium Lvl) 142 135-145 [facility]2017-06-21 07:32:00 Test Item Value Reference Range Interpretation Comments Creatinine Lvl (test code = Creatinine 0.89 0.50-1.40 Lvl) [facility]2017-06-21 07:32:00 Test Item Value Reference Range Interpretation Comments Potassium Lvl (test code = Potassium 3.0 3.5-5.1 Lvl) [facility]2017-06-21 07:32:00 Test Item Value Reference Range Interpretation Comments Chloride Lvl (test code = Chloride Lvl) 111 95-109 [facility]2017-06-21 07:32:00 Test Item Value Reference Range Interpretation Comments eGFR (test code = eGFR) 117 [facility]2017-06-21 07:32:00 Test Item Value Reference Range Interpretation Comments CO2 (test code = CO2) 17 24-32 [facility]2017-06-21 07:32:00 Test Item Value Reference Range Interpretation Comments Calcium Lvl (test code = Calcium Lvl) 8.4 8.5-10.5 [facility]2017-06-21 07:32:00 Test Item Value Reference Range Interpretation Comments AGAP (test code = AGAP) 17.0 10.0-20.0 [facility]2017-06-21 07:32:00 Test Item Value Reference Range Interpretation Comments Magnesium Lvl (test code = Magnesium 2.3 1.8-2.4 Lvl) [facility] HospitalAxvlcqeBTBTJGTSYX0519-26-69 07:32:00 Test Item Value Reference Range Interpretation Comments MCHC (test code = MCHC) 33.8 32.0-36.0 [facility] HospitalZtnpxozBJSBRRBLIF9066-09-71 07:32:00 Test Item Value Reference Range Interpretation Comments RDW (test code = RDW) 13.5 11.5-14.5 [facility] Ho[id number] 07:32:00 Test Item Value Reference Range Interpretation Comments MCH (test code = MCH) 31.4 pg 27.0-31.0 [facility] HospitalVowfaidLXYTTQMPHG1143-14-07 07:32:00 Test Item Value Reference Range Interpretation Comments Platelet (test code = Platelet) 242 133-450 [facility] HospitalRtifcpnBRAFVAMYLP9691-72-30 07:32:00 Test Item Value Reference Range Interpretation Comments MPV (test code = MPV) 8.0 7.4-10.4 [facility] HospitalRvxelisTNNLKBFPGD1652-80-08 07:32:00 Test Item Value Reference Range Interpretation Comments Hct (test code = Hct) 39.1 42.0-54.0 [facility] HospitalCsphikvZFCAJXKZQC7475-97-25 07:32:00 Test Item Value Reference Range Interpretation Comments Hgb (test code = Hgb) 13.2 14.0-18.0 [facility] HospitalWjcexzaRVVAHKJBAY8776-64-25 07:32:00 Test Item Value Reference Range Interpretation Comments MCV (test code = MCV) 93.1 80.0-94.0 [facility] HospitalLnebtaiHGZVGQVXMN0794-35-19 07:32:00 Test Item Value Reference Range Interpretation Comments RBC (test code = RBC) 4.20 4.70-6.10 [facility] HospitalHwfjovsYASNNINQQQ3376-94-13 07:32:00 Test Item Value Reference Range Interpretation Comments WBC (test code = WBC) 23.1 3.7-10.4 [facility] HospitalUgnqtakRBYLJQHWLN7970-21-53 07:32:00 Test Item Value Reference Range Interpretation Comments Eosinophils # (test code 0.1 See_Comment [A utomated message] The = Eosinophils #) system whic h generated this result tra nsmitted reference range : <=0.5. The reference r yadira was not used to int erpret this result as normal/abnormal . [facility] HospitalCciewgkOXXCYKUJPS7794-72-39 07:32:00 Test Item Value Reference Range Interpretation Comments Segs-Bands # (test code = Segs-Bands #) 18.3 1.5-8.1 [facility] [facility]WCIM3788-31-41 07:32:00 Test Item Value Reference Range Interpretation Comments Lymphocytes # (test code = Lymphocytes 2.6 1.0-5.5 #) [facility]ZjtflfaVGUTRTSSMO7280-80-72 07:32:00 Test Item Value Reference Range Interpretation Comments Monocytes # (test code 2.1 See_Comment [Aut omated message] The = Monocytes #) system which generated this result tra nsmitted reference range : <=0.8. The reference r yadira was not used to int erpret this result as normal/abnormal . [facility] HospitalXzmuhumSLEEEUTLQM9282-46-78 07:32:00 Test Item Value Reference Range Interpretation Comments Segs (test code = Segs) 79.1 45.0-75.0 [facility] HospitalBqvennxQPGQCGISZP5643-15-77 07:32:00 Test Item Value Reference Range Interpretation Comments Lymphocytes (test code = Lymphocytes) 11.2 20.0-40.0 [facility] HospitalLpaalzeZYTNNGQMUR4129-52-11 07:32:00 Test Item Value Reference Range Interpretation Comments Eosinophils (test code = 0.4 See_Comment [A utomated message] The Eosinophils) system which ge nerated this result tra nsmitted reference range : <=4.0. The reference r yadira was not used to int erpret this result as normal/abnormal . [facility] HospitalLohmpuhVYUSHAHXOC2635-31-76 07:32:00 Test Item Value Reference Range Interpretation Comments Monocytes (test code = Monocytes) 9.1 2.0-12.0 [facility] HospitalHgpasfvOOSJHKMAJI5260-13-69 07:32:00 Test Item Value Reference Range Interpretation Comments Basophils (test code = 0.2 See_Comment [Aut omated message] The Basophils) system which ge nerated this result tra nsmitted reference range : <=1.0. The reference r yadira was not used to int erpret this result as normal/abnormal . [facility]ATHY[facility] GIDRTRM6930-33-32 07:32:00 Test Item Value Reference Range Interpretation Comments Ca Ion WB (test code = Ca Ion WB) 1.07 1.05-1.25 [facility] AYOBBHH0076-36-08 07:32:00 Test Item Value Reference Range Interpretation Comments Ca Norm WB (test code = Ca Norm WB) 1.00 1.05-1.25 [facility] HospitalCHEM ASWDQ8562-22-90 22:47:00 Test Item Value Reference Range Interpretation Comments Phosphorus (test code = Phosphorus) 2.4 2.5-4.5 [facility] HospitalCHEM [id number] 22:47:00 Test Item Value Reference Range Interpretation Comments Magnesium Lvl (test code = Magnesium 1.9 1.8-2.4 Lvl) [facility]CohpksqUVVBKGYLHGAL5515-57-18 22:47:00 Test Item Value Reference Range Interpretation Comments AGAP (test code = AGAP) 14.8 10.0-20.0 [facility] HospitalTdorytfJUGVJJAUINRX9692-63-07 22:47:00 Test Item Value Reference Range Interpretation Comments eGFR (test code = eGFR) 95 [facility] HospitalXusuktxKAEHZNSWRHPK9316-27-52 22:47:00 Test Item Value Reference Range Interpretation Comments Calcium Lvl (test code = Calcium Lvl) 7.3 8.5-10.5 [facility] HospitalAhtjhpxMBSLLHQSFZWU1914-94-49 22:47:00 Test Item Value Reference Range Interpretation Comments Chloride Lvl (test code = Chloride Lvl) 110 95-109 [facility] HospitalLecrmdlDUPXGDDHPLPC8890-62-59 22:47:00 Test Item Value Reference Range Interpretation Comments Glucose Lvl (test code = Glucose Lvl) 77 70-99 [facility] HospitalGuvimcxSAYDZSHNZXFN2302-88-82 22:47:00 Test Item Value Reference Range Interpretation Comments Creatinine Lvl (test code = Creatinine 1.07 0.50-1.40 Lvl) [facility] HospitalFefsmzuZCKDVEIXUGAM1032-34-42 22:47:00 Test Item Value Reference Range Interpretation Comments BUN (test code = BUN) 7 7-22 [facility] HospitalMuvtfurPOPUNZCVVQYW5341-55-95 22:47:00 Test Item Value Reference Range Interpretation Comments Sodium Lvl (test code = Sodium Lvl) 141 135-145 [facility] HospitalFnfsexpSXAMHUUSOPOD9499-45-07 22:47:00 Test Item Value Reference Range Interpretation Comments CO2 (test code = CO2) 20 24-32 [facility] HospitalXwifsofOGSQUIPMHK2571-58-46 22:47:00 Test Item Value Reference Range Interpretation Comments WBC (test code = WBC) 26.3 3.7-10.4 [facility] HospitalOcfexsyCLNTSXOLYK5250-76-57 22:47:00 Test Item Value Reference Range Interpretation Comments Platelet (test code = Platelet) 209 133-450 [facility] HospitalOjeezssTNZHBCSYVV4111-97-59 22:47:00 Test Item Value Reference Range Interpretation Comments RDW (test code = RDW) 13.5 11.5-14.5 [facility] HospitalPiksyniKZFQNRUQUF9869-41-58 22:47:00 Test Item Value Reference Range Interpretation Comments Hct (test code = Hct) 39.5 42.0-54.0 [facility] HospitalJztgkupODVBLXLAQV8863-63-94 22:47:00 Test Item Value Reference Range Interpretation Comments MPV (test code = MPV) 8.1 7.4-10.4 [facility] HospitalGfuavlfUMNTPPCLUJ7352-83-39 22:47:00 Test Item Value Reference Range Interpretation Comments MCHC (test code = MCHC) 33.2 32.0-36.0 [facility] HospitalNxfzljgMRTPSKWLHK5227-46-67 22:47:00 Test Item Value Reference Range Interpretation Comments Hgb (test code = Hgb) 13.1 14.0-18.0 [facility] HospitalNwautrkOARDDQHUCL0339-37-80 22:47:00 Test Item Value Reference Range Interpretation Comments RBC (test code = RBC) 4.25 4.70-6.10 [facility] HospitalLpgmpkvQUTXOFKMPH3489-85-15 22:47:00 Test Item Value Reference Range Interpretation Comments MCH (test code = MCH) 30.9 pg 27.0-31.0 [facility] HospitalIwczwvnLDMLMJTMAT9839-45-55 22:47:00 Test Item Value Reference Range Interpretation Comments MCV (test code = MCV) 92.8 80.0-94.0 [facility] HospitalFrofqowRZJITQGCTC8321-89-71 22:47:00 Test Item Value Reference Range Interpretation Comments Monocytes (test code = Monocytes) 7.6 2.0-12.0 [facility] HospitalJwwximxPDPRAFSZRM2134-86-46 22:47:00 Test Item Value Reference Range Interpretation Comments Lymphocytes (test code = Lymphocytes) 7.7 20.0-40.0 [facility] HospitalOzmdsfeZPSXNLEQIB0386-27-37 22:47:00 Test Item Value Reference Range Interpretation Comments Basophils (test code = 0.2 See_Comment [Aut omated message] The Basophils) system which ge nerated this result tra nsmitted reference range : <=1.0. The reference r yadira was not used to int erpret this result as normal/abnormal . [facility] HospitalTgyzxlgQIXBXMXSUA1691-41-62 22:47:00 Test Item Value Reference Range Interpretation Comments Segs-Bands # (test code = Segs-Bands #) 22.2 1.5-8.1 [facility] HospitalRhbylljDZKLBEIAGN0953-95-95 22:47:00 Test Item Value Reference Range Interpretation Comments Monocytes # (test code 2.0 See_Comment [Aut omated message] The = Monocytes #) system which generated this result tra nsmitted reference range : <=0.8. The reference r yadira was not used to int erpret this result as normal/abnormal . [facility] HospitalBemfztnIBTDYCVGXN7903-04-95 22:47:00 Test Item Value Reference Range Interpretation Comments Lymphocytes # (test code = Lymphocytes 2.0 1.0-5.5 #) [facility] HospitalQmoxaraRNEZRLSTFO4175-92-87 22:47:00 Test Item Value Reference Range Interpretation Comments Basophils # (test code 0.1 See_Comment [Aut omated message] The = Basophils #) system which generated this result tra nsmitted reference range : <=0.2. The reference r yadira was not used to int erpret this result as normal/abnormal . [facility] HospitalZpkhfqnKHPLKSIQZY3937-12-14 22:47:00 Test Item Value Reference Range Interpretation Comments Segs (test code = Segs) 84.5 45.0-75.0 [facility]2017-06-20 22:47:00 Test Item Value Reference Range Interpretation Comments Ca Norm WB (test code = Ca Norm WB) 0.99 1.05-1.25 [facility]2017-06-20 22:47:00 Test Item Value Reference Range Interpretation Comments Ca Ion WB (test code = Ca Ion WB) 1.04 1.05-1.25 [facility]2014-02-25 15:12:00 Test Item Value Reference Range Interpretation Comments ALANINE AMINOTRANSFERASE 28 See_Comment [A utomated message] (test code = ALANINE The sys tem which AMINOTRANSFERASE) generated this result transmitted ref erence range: <=65. Th e reference range was not used to int erpret this result as normal/abnormal . [facility]2014-02-25 15:12:00 Test Item Value Reference Range Interpretation Comments Albumin Lvl (test code = Albumin Lvl) 4.1 3.5-5.0 [facility]2014-02-25 15:12:00 Test Item Value Reference Range Interpretation Comments Bili Direct (test code 0.1 See_Comment [Aut omated message] The = Bili Direct) system which generated this result tra nsmitted reference range : <=0.3. The reference r yadira was not used to int erpret this result as meme l/abnormal. [facility]2014-02-25 15:12:00 Test Item Value Reference Range Interpretation Comments Alk Phos (test code = Alk Phos) 99 39-136 [facility]2014-02-25 15:12:00 Test Item Value Reference Range Interpretation Comments Bili Total (test code = Bili Total) 0.4 0.2-1.3 [facility]2014-02-25 15:12:00 Test Item Value Reference Range Interpretation Comments ASPARTATE TRANSAMINASE 13 See_Comment [Aut omated message] (test code = ASPARTATE The s ystem which TRANSAMINASE) generated this result transmitted ref erence range: <=37. Th e reference range was not used to interpr et this result as normal/abnormal . [facility]Life[facility] ZSXRF2522-81-92 15:12:00 Test Item Value Reference Range Interpretation Comments Total Protein (test code = Total 7.2 6.4-8.4 Protein) [facility] HospitalRubicon Media [id number] 15:12:00 Test Item Value Reference Range Interpretation Comments Globulin (test code = Globulin) 3.1 2.0-4.0 [facility]2014-02-25 15:12:00 Test Item Value Reference Range Interpretation Comments Bili Indirect (test 0.3 See_Comment [Automa michelle message] The code = Bili Indirect) system which generated this result tra nsmitted reference range : <=1.0. The reference r yadira was not used to int erpret this result as normal/abnormal . [facility] [id number] 15:12:00 Test Item Value Reference Range Interpretation Comments A/G Ratio (test code = A/G Ratio) 1.3 0.7-1.6 [facility] HospitalNwikxphMXCPSVAPJXPL0586-34-27 15:12:00 Test Item Value Reference Range Interpretation Comments AGAP (test code = AGAP) 12.2 10.0-20.0 [facility] HospitalEmhvuraQWRWVLKDCAVL5858-63-69 15:12:00 Test Item Value Reference Range Interpretation Comments eGFR (test code = eGFR) 119 [facility] HospitalAlnrtmoXVYNHWWRSKXN7547-78-64 15:12:00 Test Item Value Reference Range Interpretation Comments BUN (test code = BUN) 6 7-22 [facility] HospitalZrokfyzEVGRFHMCHMKQ7555-51-83 15:12:00 Test Item Value Reference Range Interpretation Comments Glucose Lvl (test code = Glucose Lvl) 77 70-99 [facility] HospitalEwhxtgaVPCZKXKGSKPN8762-02-73 15:12:00 Test Item Value Reference Range Interpretation Comments Creatinine Lvl (test code = Creatinine 0.9 0.5-1.4 Lvl) [facility] HospitalOqbjonhGGVFVZTXWYHB6946-86-13 15:12:00 Test Item Value Reference Range Interpretation Comments Sodium Lvl (test code = Sodium Lvl) 141 135-145 [facility] HospitalJqtlzorGVDVNODAYMWG8280-12-96 15:12:00 Test Item Value Reference Range Interpretation Comments Calcium Lvl (test code = Calcium Lvl) 9.4 8.5-10.5 [facility] HospitalCkfotqgBEHBBTUJXUSJ2268-73-93 15:12:00 Test Item Value Reference Range Interpretation Comments CO2 (test code = CO2) 30 24-32 [facility] HospitalGbtlghiKWJJVWDUJBBB7931-08-68 15:12:00 Test Item Value Reference Range Interpretation Comments Chloride Lvl (test code = Chloride Lvl) 102 95-109 [facility] HospitalJdluythDMYIQGKWFNBA3026-71-97 15:12:00 Test Item Value Reference Range Interpretation Comments Potassium Lvl (test code = Potassium 3.2 3.5-5.1 Lvl) [facility] HospitalVsmlaxhIFVYJMJWPS5931-24-87 15:12:00 Test Item Value Reference Range Interpretation Comments MCV (test code = MCV) 89.9 80.0-94.0 [facility] HospitalFkfgtypSDFXXNZHJR3188-96-85 15:12:00 Test Item Value Reference Range Interpretation Comments RDW (test code = RDW) 13.1 11.5-14.5 [facility] HospitalHmujhunVKRKRPMXVP4247-74-49 15:12:00 Test Item Value Reference Range Interpretation Comments MCHC (test code = MCHC) 34.8 32.0-36.0 [facility] HospitalKlisfnmUNQHBUCODZ6800-80-36 15:12:00 Test Item Value Reference Range Interpretation Comments MCH (test code = MCH) 31.3 pg 27.0-31.0 [facility] HospitalDcxvatkFHQEZEHTYB6035-90-27 15:12:00 Test Item Value Reference Range Interpretation Comments Hct (test code = Hct) 42.0 42.0-54.0 [facility] HospitalMqonzbpLGDOSYRKMV0337-52-89 15:12:00 Test Item Value Reference Range Interpretation Comments Hgb (test code = Hgb) 14.6 14.0-18.0 [facility] HospitalFyttzvaWMIRNWLFJS2137-23-91 15:12:00 Test Item Value Reference Range Interpretation Comments RBC X 10x6 (test code = RBC X 10x6) 4.67 4.70-6.10 [facility] HospitalRuzwbolWVVIUAUWLL0707-32-40 15:12:00 Test Item Value Reference Range Interpretation Comments WBC X 10x3 (test code = WBC X 10x3) 8.3 3.7-10.4 [facility] HospitalEbenqolAYFGWJXPSQ8475-35-35 15:12:00 Test Item Value Reference Range Interpretation Comments Platelet (test code = Platelet) 275 133-450 [facility] HospitalIvkypofIYUGGLHMGY1290-08-97 15:12:00 Test Item Value Reference Range Interpretation Comments MPV (test code = MPV) 8.2 7.4-10.4 [facility] HospitalZqlqnjpVPCYPHQRLQ3219-87-54 15:12:00 Test Item Value Reference Range Interpretation Comments Monocytes (test code = Monocytes) 11.4 2.0-12.0 [facility] HospitalJmdqucgLYQEGGWSXF6119-47-84 15:12:00 Test Item Value Reference Range Interpretation Comments Segs-Bands # (test code = Segs-Bands #) 4.3 1.5-8.1 [facility] HospitalEenqaxsVPZVYCFXSP8382-66-53 15:12:00 Test Item Value Reference Range Interpretation Comments Basophils (test code = 0.7 See_Comment [Aut omated message] The Basophils) system which ge nerated this result tra nsmitted reference range : <=1.0. The reference r yadira was not used to int erpret this result as normal/abnormal . [facility] HospitalLbkjteuSTBAYPHCUP8858-64-42 15:12:00 Test Item Value Reference Range Interpretation Comments Lymphocytes # (test code = Lymphocytes 2.5 1.0-5.5 #) [facility] HospitalNktnocyTMBAFGASXW1785-12-33 15:12:00 Test Item Value Reference Range Interpretation Comments Eosinophils (test code = 5.6 See_Comment [A utomated message] The Eosinophils) system which ge nerated this result tra nsmitted reference range : <=4.0. The reference r yadira was not used to int erpret this result as normal/abnormal . [facility] HospitalQwsthgvZIVTPQTSYE7625-20-31 15:12:00 Test Item Value Reference Range Interpretation Comments Basophils # (test code 0.1 See_Comment [Aut omated message] The = Basophils #) system which generated this result tra nsmitted reference range : <=0.2. The reference r yadira was not used to int erpret this result as normal/abnormal . [facility] HospitalIfwmzshEAWYSCWBIH6437-29-60 15:12:00 Test Item Value Reference Range Interpretation Comments Eosinophils # (test code 0.5 See_Comment [A utomated message] The = Eosinophils #) system whic h generated this result tra nsmitted reference range : <=0.5. The reference r yadira was not used to int erpret this result as normal/abnormal . [facility] HospitalLwmbaaeANRXPZIVBR0809-43-48 15:12:00 Test Item Value Reference Range Interpretation Comments Monocytes # (test code 1.0 See_Comment [Aut omated message] The = Monocytes #) system which generated this result tra nsmitted reference range : <=0.8. The reference r yadira was not used to int erpret this result as normal/abnormal . [facility] HospitalAsgarwgZQKNUGSTVE8265-12-70 15:12:00 Test Item Value Reference Range Interpretation Comments Segs (test code = Segs) 51.9 45.0-75.0 [facility] HospitalVwtxdihLNEVUJKFOI3418-22-34 15:12:00 Test Item Value Reference Range Interpretation Comments Lymphocytes (test code = Lymphocytes) 30.4 20.0-40.0 [place] [id number] 15:12:00 Test Item Value Reference Range Interpretation Comments Lacosamide Lvl (test code = Lacosamide 6.3 Lvl) [place] 22428014-02-25 15:12:00 Test Item Value Reference Range Interpretation Comments Carbamaz Lvl (test code = Carbamaz Lvl) no gt 8.0-12.0 [facility] HospitalExwtwyqVQKIBAMEGJ5237-87-31 20:00:46 Test Item Value Reference Range Interpretation Comments MCV (test code = MCV) 91.2 80.0-94.0 N [facility] HospitalIbsmcxiKIPDCQFXAD1426-19-97 20:00:46 Test Item Value Reference Range Interpretation Comments Hct (test code = Hct) 39.0 42.0-54.0 L [facility] HospitalZlwifbrZNQQBDEYRK3753-90-56 20:00:46 Test Item Value Reference Range Interpretation Comments MPV (test code = MPV) 8.3 7.4-10.4 N [facility] HospitalTkptmiuHYZHLXHSHH0597-77-20 20:00:46 Test Item Value Reference Range Interpretation Comments Platelet (test code = Platelet) 279 133-450 N [facility] HospitalJpyayvgUXHDRNKNDW9804-12-64 20:00:46 Test Item Value Reference Range Interpretation Comments RDW (test code = RDW) 13.3 11.5-14.5 N [facility] HospitalLzejiymVIJPQZTJIA6645-65-61 20:00:46 Test Item Value Reference Range Interpretation Comments MCHC (test code = MCHC) 33.4 32.0-36.0 N [facility] HospitalGmzboopVGDYGQIXDX3367-04-51 20:00:46 Test Item Value Reference Range Interpretation Comments MCH (test code = MCH) 30.5 pg 27.0-31.0 N [facility] HospitalNltuznjHDYFWSLIKK7814-26-90 20:00:46 Test Item Value Reference Range Interpretation Comments WBC X 10x3 (test code = WBC X 10x3) 15.3 3.7-10.4 H [facility] HospitalKoqghaiPCYLHPQJQC9132-63-04 20:00:46 Test Item Value Reference Range Interpretation Comments RBC X 10x6 (test code = RBC X 10x6) 4.27 4.70-6.10 L [facility] HospitalBzcgkemWYHIWIRBFG1943-50-42 20:00:46 Test Item Value Reference Range Interpretation Comments Hgb (test code = Hgb) 13.0 14.0-18.0 L [facility] HospitalKrlajicPXXUCAHSGY9650-78-44 20:00:46 Test Item Value Reference Range Interpretation Comments Monocytes (test code = Monocytes) 6.7 2.0-12.0 N [facility] HospitalQuhzbinGLJAGRJLZS6209-22-99 20:00:46 Test Item Value Reference Range Interpretation Comments Lymphocytes (test code = Lymphocytes) 13.2 20.0-40.0 L [facility] HospitalAyuqhwoAZJTPAHFMJ9733-42-37 20:00:46 Test Item Value Reference Range Interpretation Comments Segs (test code = Segs) 72.2 45.0-75.0 N [facility] HospitalHynlkmnGRBFYGKFMI5330-10-97 20:00:46 Test Item Value Reference Range Interpretation Comments Eosinophils (test code = 7.8 See_Comment H [A utomated message] The Eosinophils) system which ge nerated this result tra nsmitted reference range : <=4.0. The reference r yadira was not used to int erpret this result as normal/abnormal . [facility] HospitalTfbpmcaUVSSPPIARZ9347-15-57 20:00:46 Test Item Value Reference Range Interpretation Comments Segs-Bands # (test code = Segs-Bands #) 11.1 1.5-8.1 H [facility] HospitalMmwajevTGJOLLOAPC8421-67-42 20:00:46 Test Item Value Reference Range Interpretation Comments Basophils (test code = 0.1 See_Comment N [Aut omated message] The Basophils) system which ge nerated this result tra nsmitted reference range : <=1.0. The reference r yadira was not used to int erpret this result as normal/abnormal . [facility] HospitalKetfekrBVZDAWJPRS2066-81-56 20:00:46 Test Item Value Reference Range Interpretation Comments Lymphocytes # (test code = Lymphocytes 2.0 1.0-5.5 N #) [facility] HospitalEctpdgzLOSYCSKWFM2551-37-97 20:00:46 Test Item Value Reference Range Interpretation Comments Eosinophils # (test code 1.2 See_Comment H [A utomated message] The = Eosinophils #) system whic h generated this result tra nsmitted reference range : <=0.5. The reference r yadira was not used to int erpret this result as normal/abnormal . [facility] HospitalZlukrvcIPOJYVMCIS1322-92-43 20:00:46 Test Item Value Reference Range Interpretation Comments Monocytes # (test code 1.0 See_Comment H [Aut omated message] The = Monocytes #) system which generated this result tra nsmitted reference range : <=0.8. The reference r yadira was not used to int erpret this result as normal/abnormal . [facility] HospitalHyxopizPELKDAARKW9748-81-47 19:53:37 Test Item Value Reference Range Interpretation Comments aPTT (test code = aPTT) 30.0 s 22.9-35.8 N [facility] HospitalOsfvnjuTAOPKREIPH5392-82-64 19:53:37 Test Item Value Reference Range Interpretation Comments PROTIME (test code = PROTIME) 13.3 s 12.0-14.7 N [facility] HospitalTerjkraHOMBEMPFQK7928-85-39 19:53:37 Test Item Value Reference Range Interpretation Comments INR (test code = INR) 1.02 0.85-1.17 [facility]YymaiycZZJGXUEUK4363-78-26 18:44:00 Test Item Value Reference Range Interpretation Comments Glucose Lvl (test code = Glucose Lvl) 81 70-99 [facility] AntonioXkczqqyMXWOTEQRC4014-60-81 18:44:00 Test Item Value Reference Range Interpretation Comments Chloride Lvl (test code = Chloride Lvl) 104 95-109 [facility] AntonioTqokwyiARXGPDAPU8968-87-02 18:44:00 Test Item Value Reference Range Interpretation Comments Potassium Lvl (test code = Potassium 4.3 3.5-5.1 N Lvl) [facility] AntonioOxfnpmqVCHLHVDTX3444-66-79 18:44:00 Test Item Value Reference Range Interpretation Comments Sodium Lvl (test code = Sodium Lvl) 140 135-145 [facility] AntonioWldppawEUDNCXMCV8698-55-74 18:44:00 Test Item Value Reference Range Interpretation Comments Creatinine Lvl (test code = Creatinine 0.4 0.5-1.4 L Lvl) [facility] AntonioWlsifrdJZGBZNXVJ8844-91-91 18:44:00 Test Item Value Reference Range Interpretation Comments BUN (test code = BUN) 7 7-22 [facility] AntonioYzvnodcGRYRRUSPE6015-89-00 18:44:00 Test Item Value Reference Range Interpretation Comments eGFR (test code = eGFR) 166 [facility] AntonioDbzrklzACUXYGUCW0983-07-28 18:44:00 Test Item Value Reference Range Interpretation Comments AGAP (test code = AGAP) 11.3 10.0-20.0 [facility] AntonioKdfitjmGXZFSXOJD9642-55-43 18:44:00 Test Item Value Reference Range Interpretation Comments Calcium Lvl (test code = Calcium Lvl) 8.8 8.5-10.5 [facility] AntonioZroaotyXDIUOWBRR5179-42-79 18:44:00 Test Item Value Reference Range Interpretation Comments CO2 (test code = CO2) 29 24-32 N [facility] HospitalWjhhxyzWPVWNCDZHU7094-56-58 17:20:00 Test Item Value Reference Range Interpretation Comments Epi 5.5 (test code = Epi 5.5) 61 [facility] HospitalWlpnulyGXCZIXMHOJ1766-75-85 17:20:00 Test Item Value Reference Range Interpretation Comments Ris 1.5 (test code = Ris 1.5) 86 [facility] HospitalHlkednzIDOYCZRJLE4529-11-35 17:20:00 Test Item Value Reference Range Interpretation Comments AA 2.5 (test code = AA 2.5) 8 [facility] HospitalMexsdvvTHAXZGZBGS7727-53-91 17:20:00 Test Item Value Reference Range Interpretation Comments AA 5.0 (test code = AA 5.0) 46 [facility] HospitalYvtvjzvDDSJBFQPRX5906-41-34 17:20:00 Test Item Value Reference Range Interpretation Comments Epi 11.0 (test code = Epi 11.0) 66 [facility] HospitalLxyfdsaDKXAGGDBBS7933-54-25 17:20:00 Test Item Value Reference Range Interpretation Comments ADP 5.0 uM/ml (test code = ADP 5.0 65 uM/ml) [facility] HospitalGocdgwjLXIWPLBCYY6176-00-32 17:20:00 Test Item Value Reference Range Interpretation Comments Ris .75 (test code = Ris .75) 13 [facility] HospitalNznebnuNUVSJPPFPU3471-20-03 17:20:00 Test Item Value Reference Range Interpretation Comments Plt Agg Interp Platelet aggregation study (test code = Plt shows decreased Agg Interp) aggregation with low concentration of arachidonic acid and mildly decreased aggregation with higher concentration of arachidonic acid and low concentration of ADP. Aggregation with ristocetin, collagen and epinephrine is adequate. Impression: findings are consistent with mild platelet dysfunction. This pattern is suggestive of medication effect (most likely NSAIDs versus Aspirin). Clinical correlation is required. CPT: 01908 x5 [facility] [id number] 17:20:00 Test Item Value Reference Range Interpretation Comments ADP 2.5 uM/ml (test code = ADP 2.5 36 uM/ml) [facility] Camp[id number] 17:20:00 Test Item Value Reference Range Interpretation Comments Collagen 5.0 (test code = Collagen 5.0) 76 [facility] [employer] [id number] 14:00:00 Test Item Value Reference Range Interpretation Comments Antibody Scrn (test Negative (03/12/2013 N code = Antibody Scrn) 08:00:00) [facility] [employer] [id number] 14:00:00 Test Item Value Reference Range Interpretation Comments ABO/Rh (test code = ABO/Rh) O POS [facility] [employer] [id number] 17:50:00 Test Item Value Reference Range Interpretation Comments Antibody Scrn (test Negative (03/10/2013 N code = Antibody Scrn) 11:50:00) [facility] [employer] [id number] 17:50:00 Test Item Value Reference Range Interpretation Comments ABO/Rh (test code = ABO/Rh) O POS [facility] [id number] 17:40:00 Test Item Value Reference Range Interpretation Comments A/G Ratio (test code = A/G Ratio) 1.0 0.7-1.6 N [facility] UomaintEFSTCZPKF3823-90-97 17:40:00 Test Item Value Reference Range Interpretation Comments B/C Ratio (test code = B/C Ratio) 12 6-25 N [id number] 17:40:00 Test Item Value Reference Range Interpretation Comments AGAP (test code = AGAP) 12.6 10.0-20.0 N [facility] CiabopdTFMCCWIXK0753-06-94 17:40:00 Test Item Value Reference Range Interpretation Comments Globulin (test code = Globulin) 4.0 2.0-4.0 N [facility] Anto[id number] 17:40:00 Test Item Value Reference Range Interpretation Comments eGFR (test code = eGFR) 105 [facility] AntonioLrhxpqfEVUGUXUFR6742-15-98 17:40:00 Test Item Value Reference Range Interpretation Comments Sodium Lvl (test code = Sodium Lvl) 140 135-145 N [facility] AntonioAnsnbmoRHTHOUULF7619-90-54 17:40:00 Test Item Value Reference Range Interpretation Comments ASPARTATE TRANSAMINASE 17 See_Comment N [Aut omated message] (test code = ASPARTATE The s ystem which TRANSAMINASE) generated this result transmitted ref erence range: <=37. Th e reference range was not used to interpr et this result as normal/abnormal . [facility] Anto[id number] 17:40:00 Test Item Value Reference Range Interpretation Comments Total Protein (test code = Total 7.8 6.4-8.4 N Protein) [facility] Anto[id number] 17:40:00 Test Item Value Reference Range Interpretation Comments Bili Total (test code = Bili Total) 0.6 0.2-1.3 N [facility] Anto[id number] 17:40:00 Test Item Value Reference Range Interpretation Comments Calcium Lvl (test code = Calcium Lvl) 9.5 8.5-10.5 N [facility] AntonioTazfqpwBUCTANNRL3314-82-19 17:40:00 Test Item Value Reference Range Interpretation Comments CO2 (test code = CO2) 27 24-32 N [facility] AntonioWpeawomUSOKWSZHP5296-30-80 17:40:00 Test Item Value Reference Range Interpretation Comments Chloride Lvl (test code = Chloride Lvl) 104 95-109 N [facility] AntonioYxmeosoRKCZSRIME0603-69-23 17:40:00 Test Item Value Reference Range Interpretation Comments Potassium Lvl (test code = Potassium 3.6 3.5-5.1 N Lvl) [facility] Anto[id number] 17:40:00 Test Item Value Reference Range Interpretation Comments BUN (test code = BUN) 12 7-22 N [facility] AntonioDuroxkiRCVKYGZAM6989-96-09 17:40:00 Test Item Value Reference Range Interpretation Comments Glucose Lvl (test code = Glucose Lvl) 76 70-99 N [facility] AntonioTugetbgYYYJVLGFY6234-07-42 17:40:00 Test Item Value Reference Range Interpretation Comments Alk Phos (test code = Alk Phos) 106 39-136 N [facility] AntonioCjusewdKADIICNHW4191-97-92 17:40:00 Test Item Value Reference Range Interpretation Comments Albumin Lvl (test code = Albumin Lvl) 3.8 3.5-5.0 N [facility] AntonioEdisqcqURQEZMOJJ0106 17:40:00 Test Item Value Reference Range Interpretation Comments ALANINE AMINOTRANSFERASE 33 See_Comment N [A utomated message] (test code = ALANINE The sys tem which AMINOTRANSFERASE) generated this result transmitted ref erence range: <=65. Th e reference range was not used to int erpret this result as normal/abnormal . [facility] AntonioRjntasoQMUIRJECR0618-31-09 17:40:00 Test Item Value Reference Range Interpretation Comments Creatinine Lvl (test code = Creatinine 1.0 0.5-1.4 N Lvl) [id number] 17:40:00 Test Item Value Reference Range Interpretation Comments Monocytes (test code = Monocytes) 10.8 2.0-12.0 N [facility] Hospit[id number] 17:40:00 Test Item Value Reference Range Interpretation Comments Eosinophils (test code = 14.6 See_Comment H [A utomated message] The Eosinophils) system which ge nerated this result tra nsmitted reference range : <=4.0. The reference r yadira was not used to int erpret this result as normal/abnormal . [facility] Hospit[id number] 17:40:00 Test Item Value Reference Range Interpretation Comments Lymphocytes # (test code = Lymphocytes 2.9 1.0-5.5 N #) [facility] HospitalRknbjbpDSFSAOXOIT2473-18-57 17:40:00 Test Item Value Reference Range Interpretation Comments Eosinophils # (test code 1.6 See_Comment H [A utomated message] The = Eosinophils #) system whic h generated this result tra nsmitted reference range : <=0.5. The reference r yadira was not used to int erpret this result as normal/abnormal . [facility] Hospit[id number] 17:40:00 Test Item Value Reference Range Interpretation Comments Lymphocytes (test code = Lymphocytes) 26.8 20.0-40.0 N [facility] Hospit[id number] 17:40:00 Test Item Value Reference Range Interpretation Comments Basophils (test code = 0.4 See_Comment N [Aut omated message] The Basophils) system which ge nerated this result tra nsmitted reference range : <=1.0. The reference r yadira was not used to int erpret this result as normal/abnormal . [facility] Hospit[id number] 17:40:00 Test Item Value Reference Range Interpretation Comments Segs-Bands # (test code = Segs-Bands #) 5.1 1.5-8.1 N [facility] Hospit[id number] 17:40:00 Test Item Value Reference Range Interpretation Comments Monocytes # (test code 1.2 See_Comment H [Aut omated message] The = Monocytes #) system which generated this result tra nsmitted reference range : <=0.8. The reference r yadira was not used to int erpret this result as normal/abnormal . [facility] HospitalNzrluurQYOQUMEQJC9618-75-30 17:40:00 Test Item Value Reference Range Interpretation Comments Segs (test code = Segs) 47.4 45.0-75.0 N [facility] HospitalKgvvidpVHUDSKXBBR4422-42-68 17:40:00 Test Item Value Reference Range Interpretation Comments MPV (test code = MPV) 8.2 7.4-10.4 N [facility] HospitalRriejlvDORVMBWDHP2504-33-07 17:40:00 Test Item Value Reference Range Interpretation Comments Platelet (test code = Platelet) 281 133-450 N [facility] Hospit[id number] 17:40:00 Test Item Value Reference Range Interpretation Comments RDW (test code = RDW) 13.1 11.5-14.5 N [facility] HospitalRlztxgeZKAAFRHBCO2549-69-33 17:40:00 Test Item Value Reference Range Interpretation Comments MCHC (test code = MCHC) 34.4 32.0-36.0 N [facility] HospitalMqcrzoaUODVVFHRLN6654-12-85 17:40:00 Test Item Value Reference Range Interpretation Comments MCH (test code = MCH) 31.1 pg 27.0-31.0 H [facility] HospitalRbynygcKELGNAGFSS2446-77-29 17:40:00 Test Item Value Reference Range Interpretation Comments MCV (test code = MCV) 90.5 80.0-94.0 N [facility] Hospit[id number] 17:40:00 Test Item Value Reference Range Interpretation Comments Hgb (test code = Hgb) 15.9 14.0-18.0 N [facility] HospitalHljslkhPCVJUCYKCL3750-18-15 17:40:00 Test Item Value Reference Range Interpretation Comments RBC X 10x6 (test code = RBC X 10x6) 5.10 4.70-6.10 N [facility] Hospit[id number] 17:40:00 Test Item Value Reference Range Interpretation Comments Hct (test code = Hct) 46.2 42.0-54.0 N [facility] HospitalVrfhnefERWQHETDTU5011-26-18 17:40:00 Test Item Value Reference Range Interpretation Comments WBC X 10x3 (test code = WBC X 10x3) 10.7 3.7-10.4 H [facility] H[id number] 17:40:00 Test Item Value Reference Range Interpretation Comments INR (test code = INR) 0.98 0.85-1.17 N [facility] Hospit[id number] 17:40:00 Test Item Value Reference Range Interpretation Comments aPTT (test code = aPTT) 30.0 s 22.9-35.8 N [facility] Hospit[id number] 17:40:00 Test Item Value Reference Range Interpretation Comments PROTIME (test code = PROTIME) 12.9 s 12.0-14.7 N [facility]
[2021-02-09] MEDS ORDERED: FOSPHENYTOIN PE 500 MG/10 ML VIAL ONE (01:37)
[2021-02-09] MEDS ORDERED: NA CHLORIDE 0.9% 1,000 ML ONE ×3 (01:37→04:43)
[2021-02-09] MEDS ORDERED: propofoL 1,000 MG/100 ML VIAL IV ONE ×2 (01:37→06:03)
[2021-02-09] MEDS ORDERED: NA CHLORIDE 0.9% 100 ML ONE (01:53)
[2021-02-09 02:05] LABS: Blood Gas Oxyhemoglobin 97.5 % (94-97); Blood O2 Saturation 98.7 % (92-98.5)
[2021-02-09 02:08] LABS: Urine Blood 2+ (Negative); Urine Glucose Trace (Negative); Urine Protein 2+ (Negative); Urine Specific Gravity 1.025 (1.005-1.030); Urine pH 5.5 (5.0-7.0)
[2021-02-09 02:13] LABS: Absolute Lymphocytes (CBC) 4.1 K/uL (0.7-4.9); Basophils % 0.9 % (0-1.3); Hematocrit 46.2 % (39.6-49.0); Lymphocytes % 30.6 % (15.3-44.8); MPV 7.1 fL (7.6-11.3); RBC Red Blood Cell Count 4.78 M/uL (4.33-5.43)
[2021-02-09] MEDS ORDERED: SODIUM BICARB 50 MEQ/50ML VIAL ONE ×3 (02:13→02:20)
[2021-02-09] MEDS ORDERED: D5W 1,000 ML IV ONE (02:13)
[2021-02-09 02:20] LABS: Protime INR 1.05
[2021-02-09] MEDS ORDERED: HYDROMORPHONE HCL 1 MG/ML INJ ONE ×2 (02:20→03:18)
[2021-02-09 02:24] LABS: Barbiturates NEGATIVE (NEGATIVE); Benzodiazepines POSITIVE (NEGATIVE); Cocaine NEGATIVE (NEGATIVE); METHAMPHETAM NEGATIVE (NEGATIVE); Methadone NEGATIVE (NEGATIVE); Opiates NEGATIVE (NEGATIVE); Phencyclidine NEGATIVE (NEGATIVE); THC Cannibis NEGATIVE (NEGATIVE)
[2021-02-09 02:33] LABS: ALT/SGPT 119 U/L (12-78); AST/SGOT 135 U/L (15-37); Albumin 3.5 g/dL (3.4-5.0); Alkaline Phosphatase 159 U/L (45-117); BUN Blood Urea Nitrogen 13 mg/dL (7-18); Bilirubin Direct 0.1 mg/dL (0-0.2); Bilirubin Total 0.3 mg/dL (0.2-1.0); Creatine Phosphokinase 137 U/L (39-308); Glucose Level 210 mg/dL (74-106); Potassium 3.9 mmol/L (3.5-5.1); Protein, Total 7.7 g/dL (6.4-8.2); Sodium Level 135 mmol/L (136-145)
[2021-02-09 02:34] LABS: Bicarbonate 14 mmol/L (21-32)
[2021-02-09 02:55] LABS: SARS-COV-2 RT PCR POSITIVE (NEGATIVE)
--- NOTE | 2021-02-09 04:40 | EDPHYS ---
Physician Documentation [facility] Name: Jw Alfaro Age: 31 yrs Sex: Male : 1990 Arrival Date: 02/09/2021 Time: 01:25 Bed 4 Private MD: ED Physician Humza Carey HPI: 02/09 01:48 This 31 yrs old Male presents to ER via Unassigned with complaints of Seizure. rn 01:48 The patient presents in status epilepticus, that started 45 minute(s) ago. Character of rn seizure(s): Loss of consciousness: the patient experienced loss of consciousness, Motor activity: generalized, Apnea: the patient did not experience apnea. Seizure onset: 1 hour(s) ago. Associated injury: The patient did not suffer any apparent associated injury. Current symptoms: decreased level of consciousness. The patient has experienced similar episodes in the past. Per EMS patient with seizure history, had been seizing approximately 30 minutes prior to their arrival, they estimate total of 45 minutes of seizure-like activity which they describe generalized shaking. Given Valium rectally by family without response. EMS administered 5 mg of Versed intranasally without response. Was followed by another 5 mg Versed intranasally and seizures seem to have stopped. Patient arrived with sonorous respirations and no advanced airway. Patient did not have any gross seizure-like activity consistent with the previous activity that EMS stated.. Historical: - Allergies: 02:43 NKA; as6 - Home Meds: 02:43 sertraline 50 mg Oral tab 1 tab once daily [Active]; zonisamide 100 mg oral cap 3 caps as6 2 times per day [Active]; lamotrigine 150 mg oral tab 2 tabs 2 times per day [Active]; zonisamide 50 mg oral cap 1 cap nightly [Active]; telmisartan 40 mg oral tab 1 tab once daily [Active]; pravastatin 10 mg oral tab 1 tab once daily [Active]; levetiracetam 750 mg oral Tb24 2 tabs BID [Active]; - PMHx: 02:43 Seizures; Hypercholesterolemia; Hypertensive disorder; as6 - PSHx: 02:43 temporal lobectomy- 2004; vagal nerve stimulator- 2011; as6 - Immunization history:: Adult Immunizations up to date. - Social history:: Smoking status: Patient denies any tobacco usage or history of. - Family history:: not pertinent. - Unable to obtain history due to: obtunded state. ROS: 01:48 Unable to obtain ROS due to obtunded state. rn Exam: 01:48 Constitutional: This is a well developed, well nourished patient who is somnolent with rn sonorous respirations Head/Face: Normocephalic, a few small erythematous focal areas of swelling left forehead and samaritan without laceration Eyes: Eyes superiorly deviated pupils reactive and equal ENT: Dry mucous membranes, small amount of blood noticed in oropharynx, nasal trumpet in place Neck: No crepitus or masses Cardiovascular: Tachycardic, regular Respiratory: Sonorous respirations, on a nonrebreather, not being bagged by EMS Abdomen/GI: Soft, non-tender, nondistended Skin: Skin is cool and dry, no cellulitis, no cyanosis MS/ Extremity: Pulses equal, no cyanosis. Neuro: GCS 3, no gross seizure activity, there is upper body shaking with each respiration but lower extremities are completely still 02:44 ECG was reviewed by the Attending Physician. rn Vital Signs: 01:21 BP 132 / 70; Pulse 126; Resp 12 A; Pulse Ox 88% on Non-rebreather mask; as6 01:33 Weight 70.31 kg; as6 02:23 BP 171 / 103; Pulse 148; Resp 18 A; Temp 99.6(R); Pulse Ox 100% on 100% FiO2 ETT vent; as6 03:00 BP 133 / 78; Pulse 131; Resp 20 A; Pulse Ox 96% on 60% FiO2 ETT vent; as6 03:38 BP 113 / 60; Pulse 123; Resp 18 A; Pulse Ox 98% on 60% FiO2 ETT vent; as6 03:49 BP 99 / 53; Pulse 118; Resp 18; Pulse Ox 97% on ETT vent; tw5 04:25 BP 94 / 60; Pulse 114; Resp 18 A; Pulse Ox 96% on 60% FiO2 ETT vent; as6 04:47 BP 95 / 62; tw5 04:51 BP 105 / 70; Pulse 108; Resp 18; Pulse Ox 98% on ETT vent; tw5 01:21 RT at bedside preparing to bag mask as6 Lorenzo Coma Score: 01:21 Eye Response: none(1). Verbal Response: none(1). Motor Response: none(1). Total: 3. as6 01:21 Eye Response: none(1). Verbal Response: none(1). Motor Response: none(1). Total: 3. as6 Procedures: 01:29 Intubation: Ventilated with 100% NRB prior to procedure. O2 saturation prior to learning disabilities resource teacher was 92 %. Intubated orally using # 4 Gaby blade with 7.5 mm ETT. was successful on first attempt. Cricoid pressure applied during procedure. Tube secured with ETT lopez at right side of mouth measured 24 cm at teeth. Placement verified by CXR, CO2 detector with (+) color change, auscultating bilateral breath sounds, O2 saturation after procedure was 95 %. Patient tolerated well. MDM: 01:26 Patient medically screened. rn 02:17 ED course: Mother here, states patient has done this numerous times and required rn intubation with status epilepticus. She is unsure if patient has been compliant with medication as they do not see him take it only give it to him. She states all of his care [facility] system. She recalls patient saying that he did not feel well over the last 2 days and thought he was going to have a seizure. Mother also states that patient has had a prior lobectomy as well as nerve stimulator.. 04:38 Differential diagnosis: seizure. Data reviewed: vital signs, nurses notes, lab test rn result(s), EKG, radiologic studies, CT scan, plain films, and as a result, I will admit patient. Counseling: I had a detailed discussion with the patient and/or guardian regarding: the historical points, exam findings, and any diagnostic results supporting the discharge/admit diagnosis, lab results, radiology results, the need for further work-up and treatment in the hospital, the need to transfer to another facility, for higher level of care, [facility] does not immediately have the required specialist. Response to treatment: the patient's symptoms have markedly improved after treatment, and as a result, I will admit patient. ED course: Patient markedly improved, heart rate down to 117, no further seizure-like activity noted. Chest x-ray clear. CT head does not show acute changes. Arranging transfer to [facility] given patient's doctors are there, patient intubated, no ICU beds here and no neurology here.. 02/09 01:28 Order name: Acetaminophen 02/09 01:28 Order name: Basic Metabolic Panel 02/09 01:28 Order name: CBC with Diff 02/09 01:28 Order name: ETOH Level 02/09 01:28 Order name: Hepatic Function; Complete Time: 02:36 02/09 01:28 Order name: PT-INR; Complete Time: 02:36 02/09 01:28 Order name: Ptt, Activated; Complete Time: 02:36 02/09 01:28 Order name: Salicylate; Complete Time: 02:36 02/09 01:28 Order name: Urine Drug Screen; Complete Time: 02:26 02/09 01:28 Order name: Acetaminophen Level; Complete Time: 02:36 EDMS 02/09 01:28 Order name: CK; Complete Time: 02:36 02/09 01:28 Order name: Basic Metabolic Panel; Complete Time: 02:36 EDMS 02/09 01:28 Order name: CBC with Automated Diff; Complete Time: 02:16 EDNJ 02/09 01:29 Order name: Alcohol Serum/Plasma; Complete Time: 02:55 EDMS 02/09 01:28 Order name: XRAY Chest (1 view) 02/09 01:28 Order name: CT Head Brain wo Cont 02/09 01:48 Order name: ABG; Complete Time: 02:16 02/09 01:48 Order name: Lactate; Complete Time: 02:36 02/09 02:06 Order name: COVID-19/FLU A+B (Document "Date of Onset" if Symptomatic); Complete Time: rn 02:55 02/09 02:07 Order name: Glucose, Ancillary Testing; Complete Time: 02:16 EDNJ 02/09 02:07 Order name: Urine Dipstick-Ancillary; Complete Time: 02:16 EDNJ 02/09 01:28 Order name: EKG; Complete Time: 01:29 02/09 01:28 Order name: EKG - Nurse/Tech; Complete Time: 02:38 02/09 01:28 Order name: IV Saline Lock; Complete Time: 02:38 02/09 01:28 Order name: Labs collected and sent; Complete Time: 02:38 12/24 01:28 Order name: Urine Dipstick-Ancillary (obtain specimen); Complete Time: 02:38 rn 02/09 01:35 Order name: Glucose Level; Complete Time: 01:56 rn EC:44 Rate is 161 beats/min. Rhythm is regular. QRS [place] is Normal. [place] interval is normal. rn QRS interval is normal. QT interval is normal. No Q waves. T waves are Normal. No ST changes noted. Clinical impression: Sinus tachycardia. Interpreted by me. Reviewed by me. Administered Medications: 01:21 Drug: Etomidate 20 mg Route: IVP; Site: left antecubital; as6 04:46 Follow up: Response: No adverse reaction 01:21 Drug: Rocuronium 5 ml {Note: 50 mg.} Route: IVP; Site: left antecubital; as6 04:45 Follow up: Response: No adverse reaction 01:49 Drug: NS 0.9% 1000 ml Route: IV; Rate: 1000 ml; Site: right antecubital; as6 04:48 Follow up: Response: No adverse reaction; IV Status: Completed infusion 01:51 Drug: Propofol 5 mcg/kg/min Route: IV; Rate: calculated rate; Site: right antecubital; as6 04:47 Follow up: BP 95 / 62; Rate change 45 mcg/kg/min; patient attemtped to grab ET tube at tw5 titration at 30 mcg/kg/min. Provider notified. Titration increased. Order for another Bolus given 06:06 Follow up: IV Status: Infusion continued upon transfer 02:05 Drug: Fosphenytoin 20 mg pe/kg Route: IV; Rate: calculated rate; Site: left antecubital;as6 04:46 Follow up: Response: No adverse reaction; IV Status: Completed infusion 02:05 Drug: NS 0.9% 1000 ml Route: IV; Rate: 1000 ml; Site: left antecubital; as6 04:47 Follow up: Response: No adverse reaction; IV Status: Completed infusion 02:25 Drug: Sodium Bicarbonate 1 amp Route: IVP; Site: right antecubital; as6 04:46 Follow up: Response: No adverse reaction 02:37 Drug: D5W 1000 ml, Sodium Bicarbonate 150 mEq Route: IV; Rate: 150 ml/hr; Site: left as6 antecubital; 04:46 Follow up: IV Status: Completed infusion tw 04:49 Follow up: IV Status: Infusion continued 02:37 Drug: Dilaudid (HYDROmorphone) 1 mg Route: IVP; Site: left wrist; as6 04:46 Follow up: Response: No adverse reaction 03:22 Drug: Dilaudid (HYDROmorphone) 1 mg Route: IVP; Site: left wrist; as6 04:45 Follow up: Response: No adverse reaction; RASS: Deep sedation (-4) 04:49 Drug: NS 0.9% 1000 ml Route: IV; Rate: 1 bolus; Site: left wrist; tw5 06:04 Follow up: IV Status: Infusion continued upon transfer tw Disposition Summary: 02/09/21 04:39 Transfer Ordered Transfer Location: [facility] rn Reason: Higher level of care rn Condition: Stable rn Problem: new rn Symptoms: have improved rn Accepting Physician: Dr. Merida(02/09/21 06:06) tw5 Diagnosis - Epilepsy, unspecified, not intractable, with status epilepticus rn - Acidosis rn - Acute respiratory failure with hypoxia rn Forms: - Medication Reconciliation Form rn - SBAR form furniture reproducer time excluding procedures: 04:38 Critical care time: Bedside Care: 35 minutes, Consultation: 5 minutes, Family rn Intervention: 5 minutes. Total time: 45 minutes Signatures: Dispatcher [employer] EDHumza Lora MD MD rn Attema, Lee, [facility] Sasha Tovar tw5 Jose Rendon RN RN as6 Corrections: (The following items were deleted from the chart) 04:49 04:39 Dr. juarez rn 06:06 04:49 Dr. Merida rn tw5
--- NOTE | 2021-02-09 04:40 | ER ---
Nurse's Notes [facility] Name: Jw Alfaro Age: 31 yrs Sex: Male : 1990 Arrival Date: 02/09/2021 Time: 01:25 Bed 4 Private MD: Diagnosis: Epilepsy, unspecified, not intractable, with status epilepticus;Acidosis;Acute respiratory failure with hypoxia Presentation: 02/09 01:21 Chief complaint: Chief complaint: EMS states: He had a seizure for 45 min 10 mg of as6 versed was given at the scene. " He is now post ictal, with a heart rate of 160, and 95% on a non rebreathe.". Coronavirus screen: Vaccine status: unknown. :21 Method Of Arrival: EMS: [facility] as6 01:25 Acuity: B[place] 1 lp1 02:42 Coronavirus screen: Vaccine status: Patient reports receiving the 2nd dose of the covid as6 vaccine. Mother states he had Moderna. Ebola Screen: Patient negative for fever greater than or equal to 101.5 degrees Fahrenheit, and additional compatible Ebola Virus Disease symptoms Patient denies exposure to infectious person. Patient denies travel to an Ebola-affected area in the 21 days before illness onset. Initial Sepsis Screen: Does the patient meet any 2 criteria? Altered Mental Status. HR > 90 bpm. Yes Does the patient have a suspected source of infection? No. Patient's initial sepsis screen is negative. Risk Assessment: Do you want to hurt yourself or someone else? Unable to obtain Other: Mother states he has not stated any desire to hurt himself or anyone else prior to arrival. Onset of symptoms is unknown. Triage Assessment: 01:21 General: Appears ill, Behavior is listless. Pain: Unable to use pain scale. Patient is as6 unresponsive. Neuro: Level of Consciousness is post ictal, unresponsive. Historical: - Allergies: 02:43 NKA; as6 - Home Meds: 02:43 sertraline 50 mg Oral tab 1 tab once daily [Active]; zonisamide 100 mg oral cap 3 caps as6 2 times per day [Active]; lamotrigine 150 mg oral tab 2 tabs 2 times per day [Active]; zonisamide 50 mg oral cap 1 cap nightly [Active]; telmisartan 40 mg oral tab 1 tab once daily [Active]; pravastatin 10 mg oral tab 1 tab once daily [Active]; levetiracetam 750 mg oral Tb24 2 tabs BID [Active]; - PMHx: 02:43 Seizures; Hypercholesterolemia; Hypertensive disorder; as6 - PSHx: 02:43 temporal lobectomy- 2004; vagal nerve stimulator- 2011; as6 - Immunization history:: Adult Immunizations up to date. - Social history:: Smoking status: Patient denies any tobacco usage or history of. - Family history:: not pertinent. - Unable to obtain history due to: obtunded state. Screenin:23 Abuse screen: Denies threats or abuse. Denies injuries from another. Nutritional as6 screening: unknown. Tuberculosis screening: No symptoms or risk factors identified. Fall Risk Secondary diagnosis (15 points) IV access (20 points). Assessment: 02:48 General: Jose Garcia Mother- [phone]. Pain: Unable to use pain scale. Patient is as6 intubated. Neuro: Seizure activity reported prior to arrival. Type of seizure: grand mal seizure. Mother states that they are normally complex partial seizures. Seizure lasted approximately 45 minutes. Respiratory: Ventilator assessment: ET Tube: 7.5 24 at the teeth Ventilator Mode: Assist Control (AC) Tidal Volume: 500 PEEP: HOB > 30 degrees. Breath sounds are clear bilaterally. GI: Abdomen is non-distended, Oral gastric tube in place, to suction. : Osuna in place to gravity drainage. 03:39 Reassessment: mother at bedside. as6 03:49 Reassessment: Patient appears in no apparent distress at this time. No changes from tw5 previously documented assessment. Cardiovascular: Rhythm is sinus tachycardia. 04:24 Reassessment: No changes from previously documented assessment. as6 04:51 Reassessment: Patient and/or family updated on plan of care and expected duration. Pain tw5 level reassessed. patient attempted to grab ET tube. Soft restraints applied. Propofol titrated. 06:01 Reassessment: Patient appears in no apparent distress at this time. No changes from tw5 previously documented assessment. Patient and/or family updated on plan of care and expected duration. Pain level reassessed. Vital Signs: 01:21 BP 132 / 70; Pulse 126; Resp 12 A; Pulse Ox 88% on Non-rebreather mask; as6 01:33 Weight 70.31 kg; as6 02:23 BP 171 / 103; Pulse 148; Resp 18 A; Temp 99.6(R); Pulse Ox 100% on 100% FiO2 ETT vent; as6 03:00 BP 133 / 78; Pulse 131; Resp 20 A; Pulse Ox 96% on 60% FiO2 ETT vent; as6 03:38 BP 113 / 60; Pulse 123; Resp 18 A; Pulse Ox 98% on 60% FiO2 ETT vent; as6 03:49 BP 99 / 53; Pulse 118; Resp 18; Pulse Ox 97% on ETT vent; tw5 04:25 BP 94 / 60; Pulse 114; Resp 18 A; Pulse Ox 96% on 60% FiO2 ETT vent; as6 04:47 BP 95 / 62; tw5 04:51 BP 105 / 70; Pulse 108; Resp 18; Pulse Ox 98% on ETT vent; tw5 01:21 RT at bedside preparing to bag mask as6 Matthews Coma Score: 01:21 Eye Response: none(1). Verbal Response: none(1). Motor Response: none(1). Total: 3. as6 01:21 Eye Response: none(1). Verbal Response: none(1). Motor Response: none(1). Total: 3. as6 ED Course: 01:21 Inserted saline lock: 18 gauge in right antecubital area, using aseptic technique. as6 Blood collected. 01:21 Maintain EMS IV. Dressing intact. Good blood return noted. Site clean \\T\\ dry. Gauge \\T\\ as 6 site: 18 g RAC. 01:21 Assisted provider with intubation using 7.5 mm ETT via oral route. ET tube secured at as6 teeth. Set up intubation tray. Intubated by Humza Carey MD Placement verified by CO2 detector w/ + color change, auscultating bilateral breath sounds, End-tidal CO2 montioring CXR, Patient tolerated well. 01:21 Arm band placed on. as6 01:25 Patient arrived in ED. lp1 01:26 Triage completed. lp1 01:26 Humza Carey MD is Attending Physician. rn 01:32 Jose Rendon RN is Primary Nurse. as6 01:39 XRAY Chest (1 view) In Process Unspecified. EDMS 02:06 Acetaminophen Sent. as6 02:10 Initial lab(s) drawn, by me, sent to lab. Urine collected: Osuna catheter specimen, tw5 clear, Amount Returned: 200mL EKG done, by ED staff, reviewed by Humza Carey MD COVID swab sent to lab. 02:17 Alcohol Serum/Plasma Sent. as6 02:18 COVID-19/FLU A+B (Document "Date of Onset" if Symptomatic) Sent. tw5 02:38 Basic Metabolic Panel Sent. as6 02:38 CBC with Diff Sent. as6 02:38 ETOH Level Sent. as6 02:48 Patient has correct armband on for positive identification. Placed in gown. Bed in low as6 position. Side rails up X2. Seizure precautions initiated. clinical research monitor on. Pulse ox on. NIBP on. Door closed. Moved to private room. Warm blanket given. 03:19 CT Head Brain wo Cont In Process Unspecified. EDMS 03:40 Inserted saline lock: 18 gauge in left wrist, using aseptic technique. as6 06:01 Patient transferred, IV remains in place. tw5 Administered Medications: 01:21 Drug: Etomidate 20 mg Route: IVP; Site: left antecubital; as6 04:46 Follow up: Response: No adverse reaction tw5 01:21 Drug: Rocuronium 5 ml {Note: 50 mg.} Route: IVP; Site: left antecubital; as6 04:45 Follow up: Response: No adverse reaction tw5 01:49 Drug: NS 0.9% 1000 ml Route: IV; Rate: 1000 ml; Site: right antecubital; as6 04:48 Follow up: Response: No adverse reaction; IV Status: Completed infusion tw5 01:51 Drug: Propofol 5 mcg/kg/min Route: IV; Rate: calculated rate; Site: right antecubital; as6 04:47 Follow up: BP 95 / 62; Rate change 45 mcg/kg/min; patient attemtped to grab ET tube at tw5 titration at 30 mcg/kg/min. Provider notified. Titration increased. Order for another Bolus given 06:06 Follow up: IV Status: Infusion continued upon transfer tw5 02:05 Drug: Fosphenytoin 20 mg pe/kg Route: IV; Rate: calculated rate; Site: left antecubital;as6 04:46 Follow up: Response: No adverse reaction; IV Status: Completed infusion tw 02:05 Drug: NS 0.9% 1000 ml Route: IV; Rate: 1000 ml; Site: left antecubital; as6 04:47 Follow up: Response: No adverse reaction; IV Status: Completed infusion tw 02:25 Drug: Sodium Bicarbonate 1 amp Route: IVP; Site: right antecubital; as6 04:46 Follow up: Response: No adverse reaction 02:37 Drug: D5W 1000 ml, Sodium Bicarbonate 150 mEq Route: IV; Rate: 150 ml/hr; Site: left as6 antecubital; 04:46 Follow up: IV Status: Completed infusion 04:49 Follow up: IV Status: Infusion continued 02:37 Drug: Dilaudid (HYDROmorphone) 1 mg Route: IVP; Site: left wrist; as6 04:46 Follow up: Response: No adverse reaction 03:22 Drug: Dilaudid (HYDROmorphone) 1 mg Route: IVP; Site: left wrist; as6 04:45 Follow up: Response: No adverse reaction; RASS: Deep sedation (-4) 04:49 Drug: NS 0.9% 1000 ml Route: IV; Rate: 1 bolus; Site: left wrist; tw5 06:04 Follow up: IV Status: Infusion continued upon transfer tw Intake: Outcome: 04:39 ER care complete, transfer ordered by MD. juarez 06:01 Transferred by ground EMS to [facility], Transfer form tw5 completed. Note: Report called to [place], as well as Bedside report to EMS 06:01 Condition: stable 06:01 Instructed on the need for transfer, family educated on need for transfer 06:06 Patient left the ED. tw5 Signatures: Dispatcher [employer] EDHumza Lora MD MD rn Pena, Laura, RN RN lp1 Sasha Tovar tw5 Jose Rendon RN RN as6
[2021-02-09 06:16] VITALS: TEMP 99.6
[2021-02-09 06:26] VITALS: BP 105/70; O2SAT 98
--- NOTE | 2021-02-10 12:56 | RAD REPORT ---
EXAM DESCRIPTION: CT - Head Brain Wo Cont - 02/09/2021 4:20 am CLINICAL HISTORY: 31 years, Male, SEIZURE COMPARISON: 08/02/2018 FINDINGS: Multiple transaxial tomograms of the brain were obtained from the base of the skull to the vertex without contrast. 2-D multiplanar reformats and the coronal and sagittal plane were performed and reviewed. This exam was performed according to our departmental dose-optimization protocol, which includes auto mated exposure control, adjustment of the mA and/or kV according to patient size and/or use of iterat ze reconstruction technique. Again there is a status post left frontal temporal craniotomy and the right temporal craniotomy. Pore ncephalic changes/encephalomalacia is noted within the right temporal fossa similar to prior study. O therwise the brain parenchyma demonstrate to be unremarkable. There is no midline shift and/or mass e ffect. There is no evidence for acute hemorrhage. Lateral ventricles and cisterns displace normal a ppearance. No intra or extra axial fluid collections were seen. The calvarium is intact with no antonio dence for fracture. The visualized portions of the paranasal sinuses demonstrate minimal mucosal thic kening of the ethmoid sinus. The mastoid air cells and orbits demonstrate to be clear. IMPRESSION: No acute intracranial hemorrhage identified. 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 No significant interva l change. Minimal ethmoid sinus disease. Electronically signed by: Shahid Muhammad MD 02/09/2021 3:48 AM GLASS FORMING ENGINEER Due to temporary technical issues with the PACS/Fluency reporting system, reports are being signed by the in house radiologists without review as a courtesy to insure prompt reporting. The interpreting radiologist is fully responsible for the content of the report.
--- NOTE | 2021-02-10 14:44 | RAD REPORT ---
EXAM DESCRIPTION: RAD - Chest Single View - 02/09/2021 1:39 am CLINICAL HISTORY: 31 years, Male, post intubation COMPARISON: None. FINDINGS: Single view of the chest was obtained portable. No prior films are available this time for comparison. There is a endotracheal tube just above the clavicular line at approximately 4.7 cm from the mark. There is a nasogastric tube tip within the fundus of the stomach. The lung volume is d ecreased. The heart is not enlarged. The thoracic aorta is unremarkable. No significant pleural effus ions. No consolidations. The rest of the soft tissue and bony structures demonstrate to be unremarkab le. IMPRESSION: Endotracheal tube and nasogastric tube in good position. Decreased lung volume. Electronically signed by: Shahid Muhammad MD 02/09/2021 1:50 AM ACOUSTICAL ENGINEER Due to temporary technical issues with the PACS/Fluency reporting system, reports are being signed by the in house radiologists without review as a courtesy to insure prompt reporting. The interpreting radiologist is fully responsible for the content of the report.
== END 2021-02-09 06:06 | disposition short-term general hospital (02) ==
LOC: ER 01:16
PROC: 0BH17EZ Insertion of Endotracheal Airway into Trachea, Via Natural or Artificial Opening (ICD-10-PCS; principal; 2021-02-09)
PROC: 5A1935Z Respiratory Ventilation, Less than 24 Consecutive Hours (ICD-10-PCS; 2021-02-09)
DX: J96.01 Acute respiratory failure with hypoxia (principal); E87.2 Acidosis; Z20.822 Contact with and (suspected) exposure to COVID-19; I10 Essential (primary) hypertension
CPT/HCPCS: 93005; 85025; 80048; 36415; 80320; 82550; 80329 ×2; 85610; 82947; 80076; 83605; 85730; 81003; 0240U; 80307; 70450; 71045; 94002; 82805; 31500; 99291; 99292; J2704 ×2; Q2009; J1170 ×2; J7030 ×3

== ENCOUNTER 2022-10-14 21:25 | Emergency (ER) | payer OTHER ==
[2022-10-14] MEDS ORDERED: KETAMINE HCL IN 0.9 % NACL 50 MG/5 ML SYRINGE IV ONE (21:47)
--- OUTSIDE RECORDS SUMMARY | 2022-10-14 21:52 | XMS REPORT | Continuity of Care Document ---
:1990 Author Organization [facility] t Address [address] [facility] [place] [address] Care Team Providers Name Role Phone Radha Bustamante MD Primary Care Physician [phone] BENEDICT MARTINEZ Attending Clinician Unavailable SOCO MAYEN Attending Clinician Unavailable RADHA BUSTAMANTE Attending Clinician Unavailable Soco [facility]en [facility], Ang - Db Attending Clinician Unavailable Radha Bustamante MD Attending Clinician [phone] Brandy Zafar MD Attending Clinician Draw, Clc-Bls Lab Attending Clinician Unavailable Slick Hurtado MD Attending Clinician JULIUS LEE Attending Clinician Unavailable Doctor Unassigned, [place] Attending Clinician Unavailable Pcp-Lab Attending Clinician Unavailable KVNG MAYEN Attending Clinician Unavailable BRANDY ZAFAR Attending Clinician Unavailable Brit Vela MA Attending Clinician Unavailable c-Lab Attending Clinician Unavailable Monique Waggoner RN Attending Clinician Unavailable BECCA DELGADO Attending Clinician Unavailable Chayito Merida MD Attending Clinician Becca Delgado MD Attending Clinician 2, Adc Lab Attending Clinician Unavailable RISHI JOHNSON Attending Clinician Unavailable Shilo NICK Attending Clinician Unavailable Zaire Newell Attending Clinician Logan Cotton Attending Clinician Yonny Ferrari Attending Clinician RADHA BUSTAMANTE Admitting Clinician Unavailable BECCA DELGADO Admitting Clinician Unavailable Becca Delgado MD Admitting Clinician Vera Rodriguez Admitting Clinician Amanda Ramirez Jr Admitting Clinician Yonny Ferrari Admitting Clinician Payers Payer Name Policy Type Policy Number Effective Date Expiration Date S ource Problems Condition Condition Condition Status Onset Resolution Last Treating Co mments Source Name Details Category Date Date Treatment Clinician Date 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 3-18 it y of 00:00: Medical Branch Status Status Disease Active 2020-02 Univers epilepticu epilepticu 2-24 it y of s s 00:00: Medical Branch Hyperchole Hyperchole Disease Active 2020-02 U nivers sterolemia sterolemia 0-06 it y of 00:00: Medical Branch Renal Renal Disease Active 2020-02 Univers dysfunctio dysfunctio 0-06 it y of n n 00:00: Medical Branch Essential Essential Disease Active Uni vers hypertensi hypertensi 8-17 it y of on on 00:00: Medical Branch History of History of Disease Active U nivers hypokalemi hypokalemi 8-17 it y of a a 00:00: Medical Branch Slurred Slurred Disease Active Univers speech speech 6-29 ity of 00:00: Medical Branch Diplopia Diplopia Disease Active Unive rs 6-28 ity of 00:00: Medical Branch Seizure Seizure Disease Active Overview: Univ ers disorder disorder 3-26 Formattin ity of 00:00: g of this note Medical might be Branch different from the original. Added automatic ally from request for surgery [id number] Respirator Respirator Disease Active U nivers y failure y failure 3-26 ity of 00:00: [place] 00 Medical Branch Hypokalemi Hypokalemi Disease Active U nivers a a 3-26 ity of 00:00: [place] [address] Medical Branch SEIZURES SEIZURES Diagnosis Active 2016-08-23 Memoria Active 08-23 23:24:00 l 08/23/2016 00:00: Jim fry [address] EPILEPSY EPILEPSY Diagnosis Active 2016-08-27 Memoria WITH WITH 08-23 07:16:00 l STATUS STATUS 00:00: [place] EPILEPTICU EPILEPTICU 00 S S Active 08/23/2016 [facility] MICHELLE MICHELLE Diagnosis Active 2016-08-23 Memoria BILLING BILLING 08-23 23:30:00 l LFLT #3314 LFLT #3314 00:00: Wilder velasquez Active 00 08/23/2016 [facility] STATUS STATUS Diagnosis Active 2016-08-19 Me moria EPLLEPTICU EPLLEPTICU 08-06 08:50:00 l S S Active 00:00: Kobi 08/06/2016 00 [facility] LOCALIZATI LOCALIZAT Diagnosis Active 2014-10-07 Memoria ON-RELATED ION-RELATE 09-14 07:23:00 l SYMPTOMATI D 00:00: Jim Venegas EPILEPS SYMPTOMATI 00 C EPILEPS Active 09/14/2014 [facility] 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 [place] 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, seizures, intractabl intractabl e, with e, with status status epilepticu epilepticu s s INTRACTABL INTRACTAB Diagnosis Active 2013-04-21 Memoria E SEIZURE LE SEIZURE 04-09 21:46:00 l Active 09:00: Kobi 04/09/2013 00 [facility] HEMATOMA HEMATOMA Diagnosis Active 2013-03-12 Memoria Active 03-11 13:20:00 l 03/11/2013 00:00: Jim fry [address] Hematoma Hematoma Disease Active Unive rs 03-11 ity of 00:00: [address] 345.41 345.41 Diagnosis Active 2012-07-24 Me moria Active 06-17 09:30:00 l 06/17/2012 00:00: Jim fry [address] ADHD ADHD Disease Active Overview: Univer s (attention (attention 02-17 Formattin ity of deficit deficit 00:00: g of this [place] hyperactiv hyperactiv 00 note Me dical ity ity might be Branch disorder) disorder) different from the original. Not a concern Varicocele Varicocel Problem Resolve 2016-08-29 Memoria (disorder) e d 01:16:11 l (disorder) Jim fry Resolved Problem 08/29/2016 [facility] SUBDURAL SUBDURAL Diagnosis Active 2013-03-12 Memoria HEMORRHAGE HEMORRHAGE 13:20:00 l Active [facility] PSYMOTR PSYMOTR Diagnosis Active 2013-03-11 Memoria EPIL W EPIL W 14:01:00 l INTR EPIL INTR EPIL Herm dahlia Active [facility] FEBRILE FEBRILE Diagnosis Active 2014-10-07 Memoria CONVULSION CONVULSION 07:23:00 l S NOS S NOS Kobi Active [facility] RESEARCH RESEARCH Diagnosis Active 2013-09-23 Memoria Active 09:23:00 l [facility] EPILEPSY, EPILEPSY, Diagnosis Active 2016-08-27 Memoria UNSP, NOT UNSP, NOT 07:16:00 l INTRACTABL INTRACTABL He rmann E, WITH ST E, WITH ST Active [facility] Depressive Depressive Disease Active U nivers disorder disorder [facility] Anxiety Anxiety Disease Active Univers [facility] Allergic Allergic Disease Active [facility] rs rhinitis rhinitis [facility] Viral Viral Problem Resolve 2016-08-29 2016-08-29 Memoria encephalit encephalit d 02-17 01:16:11 01:16:11 l is is 00:00: Kobi (disorder) (disorder) 00 Resolved 02/17/1999 Problem 08/29/2016 [facility] cranial cranial Problem Resolve 2013-12-25 2013-12-25 Memoria stenosis(C stenosis(C d 02-17 19:07:54 19:07:54 l onfirmed) onfirmed) 00:00: Herm dahlia Resolved 00 02/18/1988 Problem 12/25/2013 [facility] cranial cranial Problem Resolve 1988-2013-03-15 2013-03-15 Memoria stenosis stenosis d - 21:17:18 21:17:18 l Resolved 00:00: Kobi 02/18/1988 00 Problem 03/15/2013 [facility] Allergies, Adverse Reactions, Alerts Allergy Allergy Status Severity Reaction(s) Onset Inactive Treating Comm ents Source Name Type Date Date Clinician NO KNOWN Drug Active Univers ALLERGIE Class ity of S [facility] Social History Social Habit Start Date Stop Date Quantity Comments Source Gender identity Universit y of [facility] Sexual orientation Univer sity of [facility] Alcohol intake 2022-09-24 2022-09-24 Current drinker Unive rsity of 00:00:00 00:00:[address] [facility] (finding) Branch Exposure to 2022-06-15 2022-06-25 Not sure [facility] SARS-CoV-2 (event) 00:00:00 13:46:00 [facility] Alcohol Comment 2022-06-25 2022-06-25 maybe monthly Univer sity of 00:00:00 00:00:00 [facility] History of Social 2022-03-25 2022-03-25 Univers ity of function 00:00:00 00:00:00 [facility] Tobacco use and 2021-12-20 2021-12-20 Smokeless Universit y of exposure 00:00:00 00:00:00 tobacco non-user [facility] [place] [facility] Social History 2016-08-06 2016-08-06 [facility] 23:30:06 23:30:06 Sex [birth year] Universit y of 00:00:00 00:00:00 [facility] Smoking Status Start Date Stop Date Source Never smoked tobacco [facility] Medications Ordered Filled Start Stop Current Ordering Indication Dosage Frequency Signature Comments Components Source Medication Medication Date Date Medication? Clinician (SIG) Name Name diazePAM Yes [id number] 1{spray Use 1 Univers (VALTOCO) 8-07 } [place] in ity of 15 mg/2 00:00: each [place] spray nostril Medical (7.5/0.1mL SEE-INSTRU Bra nch x 2) [place] CTIONS. 1 spray in each nostril for seizure lasting more than 3 minutes or for seizure cluster. May repeat once based on response and tolerabili ty after 4 hours. Maximum dose: 2 doses per episode. Do not use for more than 1 episode every 5 days or more than 5 episodes per month. lamoTRIgine 2022-0 Yes [id number] 300mg Take 2 Univers 150 mg 8-07 tablets by ity of tablet 00:00: mouth in [place] [address] the Medical morning Branch and 2 tablets in the evening. lamoTRIgine 2022-0 Yes [id number] 25mg Take 1 Univers 25 mg 8-07 tablet by ity of tablet 00:00: mouth in [place] [address] the Medical morning Branch and 1 tablet in the evening. levETIRAcet 2022-0 Yes [id number] 1500mg Take 2 Univers am 750 mg 8-07 tablets by ity of tablet 00:00: mouth in [place] [address] the [facility] morning Branch and 2 tablets in the evening. SERTraline 2022-0 Yes [id number] 50mg Take 1 Univers 50 mg 8-07 tablet by ity of tablet 00:00: mouth at [place] [address] bedtime. Medical Branch zonisamide 2022-0 Yes [id number] 300mg Take 3 Univers 100 mg 8-07 capsules ity of capsule 00:00: by mouth [place] 00 every 12 Medical (twelve) Branch hours. zonisamide 2022-0 Yes [id number] 50mg Take 1 Univers 50 mg 8-07 capsule by ity of capsule 00:00: mouth at [place] [address] bedtime. Medical Branch diazePAM 2022-0 Yes [id number] 1{spray Use 1 Univers (VALTOCO) 8-07 } [place] in ity of 15 mg/2 00:00: each [place] spray 00 nostril Medical (7.5/0.1mL SEE-INSTRU [facility] x 2) [facility] CTIONS. 1 spray in each nostril for seizure lasting more than 3 minutes or for seizure cluster. May repeat once based on response and tolerabili ty after 4 hours. Maximum dose: 2 doses per episode. Do not use for more than 1 episode every 5 days or more than 5 episodes per month. lamoTRIgine 2022-0 Yes [id number] 300mg Take 2 Univers 150 mg 8-07 tablets by ity of tablet 00:00: mouth in [place] 00 the Medical morning Branch and 2 tablets in the evening. lamoTRIgine 3-0 Yes [id number] 25mg Take 1 Univers 25 mg 8-07 tablet by ity of tablet 00:00: mouth in [place] 00 the Medical morning Branch and 1 tablet in the evening. levETIRAcet 3-0 Yes [id number] 1500mg Take 2 Univers am 750 mg 8-07 tablets by ity of tablet 00:00: mouth in [place] 00 the Medical morning Branch and 2 tablets in the evening. SERTraline 2022-0 Yes [id number] 50mg Take 1 Univers 50 mg 8-07 tablet by ity of tablet 00:00: mouth at [place] [address] bedtime. Medical Branch zonisamide 2022-0 Yes [id number] 300mg Take 3 Univers 100 mg 8-07 capsules ity of capsule 00:00: by mouth [place] 00 every 12 Medical (twelve) Branch hours. zonisamide 2022-0 Yes [id number] 50mg Take 1 Univers 50 mg 8-07 capsule by ity of capsule 00:00: mouth at [place] [address] bedtime. Medical Branch diazePAM 2022-0 Yes [id number] 1{spray Use 1 Univers (VALTOCO) 8-07 } [place] in ity of 15 mg/2 00:00: each [place] spray 00 nostril Medical (7.5/0.1mL SEE-INSTRU Bra nch x 2) [facility] CTIONS. 1 spray in each nostril for seizure lasting more than 3 minutes or for seizure cluster. May repeat once based on response and tolerabili ty after 4 hours. Maximum dose: 2 doses per episode. Do not use for more than 1 episode every 5 days or more than 5 episodes per month. lamoTRIgine 3-0 Yes [id number] 300mg Take 2 Univers 150 mg 8-07 tablets by ity of tablet 00:00: mouth in [place] [address] the Medical morning Branch and 2 tablets in the evening. lamoTRIgine 2023-0 Yes [id number] 25mg Take 1 Univers 25 mg 8-07 tablet by ity of tablet 00:00: mouth in [place] [address] the [facility] morning Branch and 1 tablet in the evening. levETIRAcet 2023-0 Yes [id number] 1500mg Take 2 Univers am 750 mg 8-07 tablets by ity of tablet 00:00: mouth in [place] 00 the Medical morning Branch and 2 tablets in the evening. SERTraline 2022-0 Yes [id number] 50mg Take 1 Univers 50 mg 8-07 tablet by ity of tablet 00:00: mouth at [place] [address] bedtime. Medical Branch zonisamide 2022-0 Yes [id number] 300mg Take 3 Univers 100 mg 8-07 capsules ity of capsule 00:00: by mouth [place] 00 every 12 Medical (twelve) Branch hours. zonisamide 2022-0 Yes [id number] 50mg Take 1 Univers 50 mg 8-07 capsule by ity of capsule 00:00: mouth at [place] [address] bedtime. Medical Branch diazePAM 2022-0 Yes [id number] 1{spray Use 1 Univers (VALTOCO) 8-07 } [place] in ity of 15 mg/2 00:00: each [place] spray 00 nostril Medical (7.5/0.1mL SEE-INSTRU Bra nch x 2) [facility] CTIONS. 1 spray in each nostril for seizure lasting more than 3 minutes or for seizure cluster. May repeat once based on response and tolerabili ty after 4 hours. Maximum dose: 2 doses per episode. Do not use for more than 1 episode every 5 days or more than 5 episodes per month. lamoTRIgine 2022-0 Yes [id number] 300mg Take 2 Univers 150 mg 8-07 tablets by ity of tablet 00:00: mouth in [place] [address] the [facility] morning Branch and 2 tablets in the evening. lamoTRIgine 2022-0 Yes [id number] 25mg Take 1 Univers 25 mg 8-07 tablet by ity of tablet 00:00: mouth in [place] [address] the [facility] morning Branch and 1 tablet in the evening. levETIRAcet 2022-0 Yes [id number] 1500mg Take 2 Univers am 750 mg 8-07 tablets by ity of tablet 00:00: mouth in [place] [address] the [facility] morning Branch and 2 tablets in the evening. SERTraline 2022-0 Yes [id number] 50mg Take 1 Univers 50 mg 8-07 tablet by ity of tablet 00:00: mouth at [place] [address] bedtime. Medical Branch zonisamide 2022-0 Yes [id number] 300mg Take 3 Univers 100 mg 8-07 capsules ity of capsule 00:00: by mouth [place] 00 every 12 Medical (twelve) Branch hours. zonisamide 2022-0 Yes [id number] 50mg Take 1 Univers 50 mg 8-07 capsule by ity of capsule 00:00: mouth at [place] 00 bedtime. Medical Branch diazePAM 2022-0 Yes [id number] 1{spray Use 1 Univers (VALTOCO) 8-07 } [place] in ity of 15 mg/2 00:00: each [place] spray 00 nostril Medical (7.5/0.1mL SEE-INSTRU Bra nch x 2) [facility] CTIONS. 1 spray in each nostril for seizure lasting more than 3 minutes or for seizure cluster. May repeat once based on response and tolerabili ty after 4 hours. Maximum dose: 2 doses per episode. Do not use for more than 1 episode every 5 days or more than 5 episodes per month. lamoTRIgine 2022-0 Yes [id number] 300mg Take 2 Univers 150 mg 8-07 tablets by ity of tablet 00:00: mouth in [place] [address] the Medical morning Branch and 2 tablets in the evening. lamoTRIgine 2022-0 Yes [id number] 25mg Take 1 Univers 25 mg 8-07 tablet by ity of tablet 00:00: mouth in [place] [address] the Medical morning Branch and 1 tablet in the evening. levETIRAcet 2022-0 Yes [id number] 1500mg Take 2 Univers am 750 mg 8-07 tablets by ity of tablet 00:00: mouth in [place] [address] the Medical morning Branch and 2 tablets in the evening. SERTraline 2022-0 Yes [id number] 50mg Take 1 Univers 50 mg 8-07 tablet by ity of tablet 00:00: mouth at [place] [address] bedtime. Medical Branch zonisamide 2022-0 Yes [id number] 300mg Take 3 Univers 100 mg 8-07 capsules ity of capsule 00:00: by mouth [place] 00 every 12 Medical (twelve) Branch hours. zonisamide 2022-0 Yes [id number] 50mg Take 1 Univers 50 mg 8-07 capsule by ity of capsule 00:00: mouth at [place] [address] bedtime. Medical Branch diazePAM 2022-0 Yes [id number] 1{spray Use 1 Univers (VALTOCO) 8-07 } [place] in ity of 15 mg/2 00:00: each [place] spray 00 nostril Medical (7.5/0.1mL SEE-INSTRU Bra nch x 2) [place] CTIONS. 1 spray in each nostril for seizure lasting more than 3 minutes or for seizure cluster. May repeat once based on response and tolerabili ty after 4 hours. Maximum dose: 2 doses per episode. Do not use for more than 1 episode every 5 days or more than 5 episodes per month. lamoTRIgine 2022-0 Yes [id number] 300mg Take 2 Univers 150 mg 8-07 tablets by ity of tablet 00:00: mouth in [place] [address] the Medical morning Branch and 2 tablets in the evening. lamoTRIgine 2022-0 Yes [id number] 25mg Take 1 Univers 25 mg 8-07 tablet by ity of tablet 00:00: mouth in [place] [address] the Medical morning Branch and 1 tablet in the evening. levETIRAcet 2022-0 Yes [id number] 1500mg Take 2 Univers am 750 mg 8-07 tablets by ity of tablet 00:00: mouth in [place] [address] the Medical morning Branch and 2 tablets in the evening. SERTraline 2022-0 Yes [id number] 50mg Take 1 Univers 50 mg 8-07 tablet by ity of tablet 00:00: mouth at [place] [address] bedtime. Medical Branch zonisamide 2022-0 Yes [id number] 300mg Take 3 Univers 100 mg 8-07 capsules ity of capsule 00:00: by mouth [place] 00 every 12 Medical (twelve) Branch hours. zonisamide 2022-0 Yes [id number] 50mg Take 1 Univers 50 mg 8-07 capsule by ity of capsule 00:00: mouth at [place] [address] bedtime. Medical Branch diazePAM 2022-0 Yes [id number] 1{spray Use 1 Univers (VALTOCO) 8-07 } [place] in ity of 15 mg/2 00:00: each [place] spray 00 nostril Medical (7.5/0.1mL SEE-INSTRU Bra nch x 2) [place] CTIONS. 1 spray in each nostril for seizure lasting more than 3 minutes or for seizure cluster. May repeat once based on response and tolerabili ty after 4 hours. Maximum dose: 2 doses per episode. Do not use for more than 1 episode every 5 days or more than 5 episodes per month. lamoTRIgine 3-0 Yes [id number] 300mg Take 2 Univers 150 mg 8-07 tablets by ity of tablet 00:00: mouth in [place] 00 the Medical morning Branch and 2 tablets in the evening. lamoTRIgine 3-0 Yes [id number] 25mg Take 1 Univers 25 mg 8-07 tablet by ity of tablet 00:00: mouth in [place] 00 the Medical morning Branch and 1 tablet in the evening. levETIRAcet 3-0 Yes [id number] 1500mg Take 2 Univers am 750 mg 8-07 tablets by ity of tablet 00:00: mouth in [place] 00 the Medical morning Branch and 2 tablets in the evening. SERTraline 2022-0 Yes [id number] 50mg Take 1 Univers 50 mg 8-07 tablet by ity of tablet 00:00: mouth at [place] [address] bedtime. Medical Branch zonisamide 2022-0 Yes [id number] 300mg Take 3 Univers 100 mg 8-07 capsules ity of capsule 00:00: by mouth [place] 00 every 12 Medical (twelve) Branch hours. zonisamide 2022-0 Yes [id number] 50mg Take 1 Univers 50 mg 8-07 capsule by ity of capsule 00:00: mouth at [place] [address] bedtime. Medical Branch diazePAM 2022-0 Yes [id number] 1{spray Use 1 Univers (VALTOCO) 8-07 } [place] in ity of 15 mg/2 00:00: each [place] spray 00 nostril Medical (7.5/0.1mL SEE-INSTRU Bra nch x 2) [place] CTIONS. 1 spray in each nostril for seizure lasting more than 3 minutes or for seizure cluster. May repeat once based on response and tolerabili ty after 4 hours. Maximum dose: 2 doses per episode. Do not use for more than 1 episode every 5 days or more than 5 episodes per month. lamoTRIgine 3-0 Yes [id number] 300mg Take 2 Univers 150 mg 8-07 tablets by ity of tablet 00:00: mouth in [place] [address] the Medical morning Branch and 2 tablets in the evening. lamoTRIgine 3-0 Yes [id number] 25mg Take 1 Univers 25 mg 8-07 tablet by ity of tablet 00:00: mouth in [place] 00 the Medical morning Branch and 1 tablet in the evening. levETIRAcet 2023-0 Yes [id number] 1500mg Take 2 Univers am 750 mg 8-07 tablets by ity of tablet 00:00: mouth in [place] 00 the [facility] morning Branch and 2 tablets in the evening. SERTraline 2022-0 Yes [id number] 50mg Take 1 Univers 50 mg 8-07 tablet by ity of tablet 00:00: mouth at [place] [address] bedtime. Medical Branch zonisamide 2022-0 Yes [id number] 300mg Take 3 Univers 100 mg 8-07 capsules ity of capsule 00:00: by mouth [place] 00 every 12 Medical (twelve) Branch hours. zonisamide 2022-0 Yes [id number] 50mg Take 1 Univers 50 mg 8-07 capsule by ity of capsule 00:00: mouth at [place] [address] bedtime. Medical Branch diazePAM 2022-0 Yes [id number] 1{spray Use 1 Univers (VALTOCO) 8-07 } [place] in ity of 15 mg/2 00:00: each [place] spray 00 nostril Medical (7.5/0.1mL SEE-INSTRU Bra nch x 2) [place] CTIONS. 1 spray in each nostril for seizure lasting more than 3 minutes or for seizure cluster. May repeat once based on response and tolerabili ty after 4 hours. Maximum dose: 2 doses per episode. Do not use for more than 1 episode every 5 days or more than 5 episodes per month. lamoTRIgine 3-0 Yes [id number] 300mg Take 2 Univers 150 mg 8-07 tablets by ity of tablet 00:00: mouth in [place] [address] the [facility] morning Branch and 2 tablets in the evening. lamoTRIgine 3-0 Yes [id number] 25mg Take 1 Univers 25 mg 8-07 tablet by ity of tablet 00:00: mouth in [place] [address] the [facility] morning Branch and 1 tablet in the evening. levETIRAcet 2023-0 Yes [id number] 1500mg Take 2 Univers am 750 mg 8-07 tablets by ity of tablet 00:00: mouth in [place] [address] the [facility] morning Branch and 2 tablets in the evening. SERTraline 3-0 Yes [id number] 50mg Take 1 Univers 50 mg 8-07 tablet by ity of tablet 00:00: mouth at [place] 00 bedtime. Medical Branch zonisamide 2022-0 Yes [id number] 300mg Take 3 Univers 100 mg 8-07 capsules ity of capsule 00:00: by mouth [place] 00 every 12 Medical (twelve) Branch hours. zonisamide 2022-0 Yes [id number] 50mg Take 1 Univers 50 mg 8-07 capsule by ity of capsule 00:00: mouth at [place] 00 bedtime. Medical Branch diazePAM 2022-0 Yes [id number] 1{spray Use 1 Univers (VALTOCO) 8-07 } [place] in ity of 15 mg/2 00:00: each [place] spray 00 nostril Medical (7.5/0.1mL SEE-INSTRU Bra nch x 2) [place] CTIONS. 1 spray in each nostril for seizure lasting more than 3 minutes or for seizure cluster. May repeat once based on response and tolerabili ty after 4 hours. Maximum dose: 2 doses per episode. Do not use for more than 1 episode every 5 days or more than 5 episodes per month. lamoTRIgine 2022-0 Yes [id number] 300mg Take 2 Univers 150 mg 8-07 tablets by ity of tablet 00:00: mouth in [place] [address] the Medical morning Branch and 2 tablets in the evening. lamoTRIgine 2022-0 Yes [id number] 25mg Take 1 Univers 25 mg 8-07 tablet by ity of tablet 00:00: mouth in [place] [address] the Medical morning Branch and 1 tablet in the evening. levETIRAcet 2022-0 Yes [id number] 1500mg Take 2 Univers am 750 mg 8-07 tablets by ity of tablet 00:00: mouth in [place] 00 the Medical morning Branch and 2 tablets in the evening. SERTraline 2022-0 Yes [id number] 50mg Take 1 Univers 50 mg 8-07 tablet by ity of tablet 00:00: mouth at [place] [address] bedtime. Medical Branch zonisamide 2022-0 Yes [id number] 300mg Take 3 Univers 100 mg 8-07 capsules ity of capsule 00:00: by mouth [place] 00 every 12 Medical (twelve) Branch hours. zonisamide 2022-0 Yes [id number] 50mg Take 1 Univers 50 mg 8-07 capsule by ity of capsule 00:00: mouth at [place] 00 bedtime. Medical Branch POTASSIUM 2023-0 Yes [id number] TAKE ONE Univers CHLORIDE 10 6-06 (1) ity of mEq CR 00:00: TABLET(S) [place] tablet 00 BY MOUTH Medical ONCE A Branch DAY. POTASSIUM 2023-0 Yes [id number] TAKE ONE Univers CHLORIDE 10 6-06 (1) ity of mEq CR 00:00: TABLET(S) [place] tablet 00 BY MOUTH Medical ONCE A Branch DAY. POTASSIUM 2023-0 Yes [id number] TAKE ONE Univers CHLORIDE 10 6-06 (1) ity of mEq CR 00:00: TABLET(S) [place] tablet 00 BY MOUTH Medical ONCE A Branch DAY. POTASSIUM 2023-0 Yes [id number] TAKE ONE Univers CHLORIDE 10 6-06 (1) ity of mEq CR 00:00: TABLET(S) [place] tablet 00 BY MOUTH Medical ONCE A Branch DAY. POTASSIUM 2023-0 Yes [id number] TAKE ONE [facility] CHLORIDE 10 6-06 (1) ity of mEq CR 00:00: TABLET(S) [place] tablet 00 BY MOUTH Medical ONCE A Branch DAY. POTASSIUM 2023-0 Yes [id number] TAKE ONE [facility] CHLORIDE 10 6-06 (1) ity of mEq CR 00:00: TABLET(S) [place] tablet 00 BY MOUTH Medical ONCE A Branch DAY. POTASSIUM 2023-0 Yes [id number] TAKE ONE [facility] CHLORIDE 10 6-06 (1) ity of mEq CR 00:00: TABLET(S) [place] tablet 00 BY MOUTH Medical ONCE A Branch DAY. POTASSIUM 2023-0 Yes [id number] TAKE ONE [facility] CHLORIDE 10 6-06 (1) ity of mEq CR 00:00: TABLET(S) [place] tablet 00 BY MOUTH Medical ONCE A Branch DAY. POTASSIUM 2023-0 Yes [id number] TAKE ONE [facility] CHLORIDE 10 6-06 (1) ity of mEq CR 00:00: TABLET(S) [place] tablet 00 BY MOUTH Medical ONCE A Branch DAY. POTASSIUM 2023-0 Yes [id number] TAKE ONE [facility] CHLORIDE 10 6-06 (1) ity of mEq CR 00:00: TABLET(S) [place] tablet 00 BY MOUTH Medical ONCE A Branch DAY. POTASSIUM 2023-0 Yes [id number] TAKE ONE [facility] CHLORIDE 10 6-06 (1) ity of mEq CR 00:00: TABLET(S) [place] tablet 00 BY MOUTH Medical ONCE A Branch DAY. POTASSIUM 2023-0 Yes [id number] TAKE ONE [facility] CHLORIDE 10 6-06 (1) ity of mEq CR 00:00: TABLET(S) [place] tablet 00 BY MOUTH Medical ONCE A Branch DAY. telmisartan 2023-0 2023- No 20mg Take 1 [facility] vers 20 mg 5-09 05-09 tablet by ity of tablet 13:28: 00:00 mouth in [place] 42 :00 the Medical morning. Branch telmisartan 2023-0 2023- No 20mg Take 1 [facility] vers 20 mg 5-09 05-09 tablet by ity of tablet 13:28: 00:00 mouth in [place] 42 :00 the Medical morning. Branch Melatonin 5 3-0 Yes 5mg Take 1 [facility] ers mg tablet 5-09 tablet by ity o f 13:04: mouth at [place] [address] bedtime. Medical Branch docusate 2023-0 Yes 100mg Take 1 [facility] s 100 mg 5-09 capsule by ity of capsule 13:04: mouth in [place] [address] the Medical morning Branch and 1 capsule in the evening. CALCIUM-MAG 2023-0 Yes 1{tbl} Take 1 [facility]ulo NESIUM ORAL 5-09 tablet by ity of 13:04: mouth in [place] [address] the Medical morning Branch and 1 tablet in the evening. docosahexae 2023-0 Yes 1{capsu Take 1 U nivers noic 5-09 le} capsule by ity of acid/epa 13:04: mouth in [place] (FISH OIL 46 the Medical ORAL) morning Branch and 1 capsule in the evening. fexofenadin 3-0 Yes 1{tbl} Take 1 Un paulo e HCl 5-09 tablet by ity of (SIMI 13:04: mouth in [facility]) 46 the Medical morning. Branch Melatonin 5 3-0 Yes 5mg Take 1 Univ ers mg tablet 5-09 tablet by ity o f 13:04: mouth at [place] [address] bedtime. Medical Branch docusate 2023-0 Yes 100mg Take 1 Un[facility] s 100 mg 5-09 capsule by ity of capsule 13:04: mouth in [place] [address] the Medical morning Branch and 1 capsule in the evening. CALCIUM-MAG 2023-0 Yes 1{tbl} Take 1 Un paulo NESIUM ORAL 5-09 tablet by ity of 13:04: mouth in [place] [address] the Medical morning Branch and 1 tablet in the evening. docosahexae 2023-0 Yes 1{capsu Take 1 U nivers noic 5-09 le} capsule by ity of acid/epa 13:04: mouth in [place] (FISH OIL 46 the Medical ORAL) morning Branch and 1 capsule in the evening. fexofenadin 2023-0 Yes 1{tbl} Take 1 Un paulo e HCl 5-09 tablet by ity of (SIMI 13:04: mouth in [place] ORAL) 46 the Medical morning. Branch Melatonin 5 3-0 Yes 5mg Take 1 [facility] ers mg tablet 5-09 tablet by ity o f 13:04: mouth at [place] [address] bedtime. Medical Branch docusate 2023-0 Yes 100mg Take 1 [facility] s 100 mg 5-09 capsule by ity of capsule 13:04: mouth in [place] [address] the Medical morning Branch and 1 capsule in the evening. CALCIUM-MAG 2023-0 Yes 1{tbl} Take 1 Un paulo NESIUM ORAL 5-09 tablet by ity of 13:04: mouth in [place] [address] the Medical morning Branch and 1 tablet in the evening. docosahexae 3-0 Yes 1{capsu Take 1 U nivers noic 5-09 le} capsule by ity of acid/epa 13:04: mouth in [place] (FISH OIL 46 the Medical ORAL) morning Branch and 1 capsule in the evening. fexofenadin 3-0 Yes 1{tbl} Take 1 Un paulo e HCl 5-09 tablet by ity of (SIMI 13:04: mouth in [place] ORAL) 46 the Medical morning. Branch Melatonin 5 2022-0 Yes 5mg Take 1 [facility] ers mg tablet 5-09 tablet by ity o f 13:04: mouth at [place] [address] bedtime. Medical Branch docusate 2023-0 Yes 100mg Take 1 [facility] s 100 mg 5-09 capsule by ity of capsule 13:04: mouth in [place] [address] the Medical morning Branch and 1 capsule in the evening. CALCIUM-MAG 2023-0 Yes 1{tbl} Take 1 Un paulo NESIUM ORAL 5-09 tablet by ity of 13:04: mouth in [place] [address] the Medical morning Branch and 1 tablet in the evening. docosahexae 2023-0 Yes 1{capsu Take 1 U nivers noic 5-09 le} capsule by ity of acid/epa 13:04: mouth in [place] (FISH OIL 46 the Medical ORAL) morning Branch and 1 capsule in the evening. fexofenadin 2023-0 Yes 1{tbl} Take 1 Un paulo e HCl 5-09 tablet by ity of (SIMI 13:04: mouth in [place] ORAL) 46 the Medical morning. Branch Melatonin 5 3-0 Yes 5mg Take 1 [facility] ers mg tablet 5-09 tablet by ity o f 13:04: mouth at [place] [address] bedtime. Medical Branch docusate 2023-0 Yes 100mg Take 1 [facility] s 100 mg 5-09 capsule by ity of capsule 13:04: mouth in [place] [address] the Medical morning Branch and 1 capsule in the evening. CALCIUM-MAG 2023-0 Yes 1{tbl} Take 1 Un paulo NESIUM ORAL 5-09 tablet by ity of 13:04: mouth in [place] [address] the Medical morning Branch and 1 tablet in the evening. docosahexae 2023-0 Yes 1{capsu Take 1 U nivers noic 5-09 le} capsule by ity of acid/epa 13:04: mouth in [place] (FISH OIL 46 the Medical ORAL) morning Branch and 1 capsule in the evening. fexofenadin 2023-0 Yes 1{tbl} Take 1 Un paulo e HCl 5-09 tablet by ity of (SIMI 13:04: mouth in [facility]) the Medical morning. Branch Melatonin 5 3-0 Yes 5mg Take 1 Univ ers mg tablet 5-09 tablet by ity o f 13:04: mouth at [place] [address] bedtime. Medical Branch docusate 2023-0 Yes 100mg Take 1 Un[facility] s 100 mg 5-09 capsule by ity of capsule 13:04: mouth in [place] [address] the Medical morning Branch and 1 capsule in the evening. CALCIUM-MAG 2023-0 Yes 1{tbl} Take 1 Un paulo NESIUM ORAL 5-09 tablet by ity of 13:04: mouth in [place] [address] the Medical morning Branch and 1 tablet in the evening. docosahexae 2023-0 Yes 1{capsu Take 1 U nivers noic 5-09 le} capsule by ity of acid/epa 13:04: mouth in [place] (FISH OIL 46 the Medical ORAL) morning Branch and 1 capsule in the evening. fexofenadin 2023-0 Yes 1{tbl} Take 1 Un paulo e HCl 5-09 tablet by ity of (SIMI 13:04: mouth in [place] ORAL) 46 the Medical morning. Branch Melatonin 5 3-0 Yes 5mg Take 1 Univ ers mg tablet 5-09 tablet by ity o f 13:04: mouth at [place] [address] bedtime. Medical Branch docusate 2023-0 Yes 100mg Take 1 Un[facility] s 100 mg 5-09 capsule by ity of capsule 13:04: mouth in [place] [address] the Medical morning Branch and 1 capsule in the evening. CALCIUM-MAG 2023-0 Yes 1{tbl} Take 1 Un paulo NESIUM ORAL 5-09 tablet by ity of 13:04: mouth in [place] [address] the Medical morning Branch and 1 tablet in the evening. docosahexae 2023-0 Yes 1{capsu Take 1 U nivers noic 5-09 le} capsule by ity of acid/epa 13:04: mouth in [place] (FISH OIL 46 the Medical ORAL) morning Branch and 1 capsule in the evening. fexofenadin 2023-0 Yes 1{tbl} Take 1 Un paulo e HCl 5-09 tablet by ity of (SIMI 13:04: mouth in [place] ORAL) 46 the Medical morning. Branch Melatonin 5 2022-0 Yes 5mg Take 1 Univ ers mg tablet 5-09 tablet by ity o f 13:04: mouth at [place] [address] bedtime. Medical Branch docusate 2023-0 Yes 100mg Take 1 Univer s 100 mg 5-09 capsule by ity of capsule 13:04: mouth in [place] [address] the Medical morning Branch and 1 capsule in the evening. CALCIUM-MAG 2023-0 Yes 1{tbl} Take 1 Un paulo NESIUM ORAL 5-09 tablet by ity of 13:04: mouth in [place] [address] the Medical morning Branch and 1 tablet in the evening. docosahexae 2023-0 Yes 1{capsu Take 1 U nivers noic 5-09 le} capsule by ity of acid/epa 13:04: mouth in [place] (FISH OIL 46 the Medical ORAL) morning Branch and 1 capsule in the evening. fexofenadin 2023-0 Yes 1{tbl} Take 1 Un paulo e HCl 5-09 tablet by ity of (SIMI 13:04: mouth in [place] ORAL) 46 the Medical morning. Branch Melatonin 5 2023-0 Yes 5mg Take 1 Univ ers mg tablet 5-09 tablet by ity o f 13:04: mouth at [place] [address] bedtime. Medical Branch docusate 2023-0 Yes 100mg Take 1 Univer s 100 mg 5-09 capsule by ity of capsule 13:04: mouth in [place] [address] the Medical morning Branch and 1 capsule in the evening. CALCIUM-MAG 2023-0 Yes 1{tbl} Take 1 Un paulo NESIUM ORAL 5-09 tablet by ity of 13:04: mouth in [place] [address] the Medical morning Branch and 1 tablet in the evening. docosahexae 2023-0 Yes 1{capsu Take 1 U nivers noic 5-09 le} capsule by ity of acid/epa 13:04: mouth in [place] (FISH OIL 46 the Medical ORAL) morning Branch and 1 capsule in the evening. fexofenadin 2023-0 Yes 1{tbl} Take 1 Un paulo e HCl 5-09 tablet by ity of (SIMI 13:04: mouth in [place] ORAL) 46 the Medical morning. Branch Melatonin 5 3-0 Yes 5mg Take 1 Univ ers mg tablet 5-09 tablet by ity o f 13:04: mouth at [place] [address] bedtime. Medical Branch docusate 2023-0 Yes 100mg Take 1 Univer s 100 mg 5-09 capsule by ity of capsule 13:04: mouth in [place] [address] the Medical morning Branch and 1 capsule in the evening. CALCIUM-MAG 2023-0 Yes 1{tbl} Take 1 Un paulo NESIUM ORAL 5-09 tablet by ity of 13:04: mouth in [place] [address] the Medical morning Branch and 1 tablet in the evening. docosahexae 2023-0 Yes 1{capsu Take 1 U nivers noic 5-09 le} capsule by ity of acid/epa 13:04: mouth in [place] (FISH OIL 46 the Medical ORAL) morning Branch and 1 capsule in the evening. fexofenadin 2023-0 Yes 1{tbl} Take 1 Un paulo e HCl 5-09 tablet by ity of (SIMI 13:04: mouth in [place] ORAL) 46 the Medical morning. Branch Melatonin 5 2023-0 Yes 5mg Take 1 Univ ers mg tablet 5-09 tablet by ity o f 13:04: mouth at [place] [address] bedtime. Medical Branch docusate 2023-0 Yes 100mg Take 1 Univer s 100 mg 5-09 capsule by ity of capsule 13:04: mouth in [place] [address] the Medical morning Branch and 1 capsule in the evening. CALCIUM-MAG 2023-0 Yes 1{tbl} Take 1 Un paulo NESIUM ORAL 5-09 tablet by ity of 13:04: mouth in [place] [address] the Medical morning Branch and 1 tablet in the evening. docosahexae 2023-0 Yes 1{capsu Take 1 U nivers noic 5-09 le} capsule by ity of acid/epa 13:04: mouth in [place] (FISH OIL 46 the Medical ORAL) morning Branch and 1 capsule in the evening. fexofenadin 2023-0 Yes 1{tbl} Take 1 Un paulo e HCl 5-09 tablet by ity of (SIMI 13:04: mouth in [facility]) the Medical morning. Branch Melatonin 5 2022-0 Yes 5mg Take 1 Univ ers mg tablet 5-09 tablet by ity o f 13:04: mouth at [place] [address] bedtime. Medical Branch docusate 2023-0 Yes 100mg Take 1 Univer s 100 mg 5-09 capsule by ity of capsule 13:04: mouth in [place] [address] the Medical morning Branch and 1 capsule in the evening. CALCIUM-MAG 2023-0 Yes 1{tbl} Take 1 Un paulo NESIUM ORAL 5-09 tablet by ity of 13:04: mouth in [place] [address] the Medical morning Branch and 1 tablet in the evening. docosahexae 2023-0 Yes 1{capsu Take 1 U nivers noic 5-09 le} capsule by ity of acid/epa 13:04: mouth in [place] (FISH OIL 46 the Medical ORAL) morning Branch and 1 capsule in the evening. fexofenadin 2023-0 Yes 1{tbl} Take 1 Un paulo e HCl 5-09 tablet by ity of (SIMI 13:04: mouth in [place] ORAL) 46 the Medical morning. Branch Melatonin 5 3-0 Yes 5mg Take 1 Univ ers mg tablet 5-09 tablet by ity o f 13:04: mouth at [place] [address] bedtime. Medical Branch docusate 2023-0 Yes 100mg Take 1 Univer s 100 mg 5-09 capsule by ity of capsule 13:04: mouth in [place] [address] the Medical morning Branch and 1 capsule in the evening. CALCIUM-MAG 2023-0 Yes 1{tbl} Take 1 Un apulo NESIUM ORAL 5-09 tablet by ity of 13:04: mouth in [place] [address] the Medical morning Branch and 1 tablet in the evening. docosahexae 2023-0 Yes 1{capsu Take 1 U nivers noic 5-09 le} capsule by ity of acid/epa 13:04: mouth in [place] (FISH OIL 46 the Medical ORAL) morning Branch and 1 capsule in the evening. fexofenadin 2023-0 Yes 1{tbl} Take 1 Un paulo e HCl 5-09 tablet by ity of (SIMI 13:04: mouth in [place] ORAL) the Medical morning. Branch Melatonin 5 3-0 Yes 5mg Take 1 Univ ers mg tablet 5-09 tablet by ity o f 13:04: mouth at [place] [address] bedtime. Medical Branch docusate 2023-0 Yes 100mg Take 1 Univer s 100 mg 5-09 capsule by ity of capsule 13:04: mouth in [place] [address] the Medical morning Branch and 1 capsule in the evening. CALCIUM-MAG 2023-0 Yes 1{tbl} Take 1 Un paulo NESIUM ORAL 5-09 tablet by ity of 13:04: mouth in [place] [address] the Medical morning Branch and 1 tablet in the evening. docosahexae 2023-0 Yes 1{capsu Take 1 U nivers noic 5-09 le} capsule by ity of acid/epa 13:04: mouth in [place] (FISH OIL 46 the Medical ORAL) morning Branch and 1 capsule in the evening. fexofenadin 2023-0 Yes 1{tbl} Take 1 Un paulo e HCl 5-09 tablet by ity of (SIMI 13:04: mouth in [place] ORAL) 46 the Medical morning. Branch Melatonin 5 2023-0 Yes 5mg Take 1 Univ ers mg tablet 5-09 tablet by ity o f 13:04: mouth at [place] [address] bedtime. Medical Branch docusate 2023-0 Yes 100mg Take 1 Univer s 100 mg 5-09 capsule by ity of capsule 13:04: mouth in [place] [address] the Medical morning Branch and 1 capsule in the evening. CALCIUM-MAG 2022-0 Yes 1{tbl} Take 1 Un paulo NESIUM ORAL 5-09 tablet by ity of 13:04: mouth in [place] 46 the Medical morning Branch and 1 tablet in the evening. docosahexae 3-0 Yes 1{capsu Take 1 U nivers noic 5-09 le} capsule by ity of acid/epa 13:04: mouth in [place] (FISH OIL 46 the Medical ORAL) morning Branch and 1 capsule in the evening. fexofenadin 2022-0 Yes 1{tbl} Take 1 Un paulo e HCl 5-09 tablet by ity of (SIMI 13:04: mouth in [place] ORAL) 46 the Medical morning. Branch telmisartan 2022-0 Yes [id number] 20mg Take 1 [facility] 20 mg 5-09 tablet by ity of tablet 00:00: mouth in [place] 00 the Medical morning. Branch pravastatin 2022-0 Yes [id number] 10mg Take 1 [facility] 10 mg 5-09 tablet by ity of tablet 00:00: mouth at [place] 00 bedtime. Medical Branch telmisartan 2022-0 Yes [id number] 20mg Take 1 [facility] 20 mg 5-09 tablet by ity of tablet 00:00: mouth in [place] 00 the Medical morning. Branch pravastatin 2022-0 Yes [id number] 10mg Take 1 [facility] 10 mg 5-09 tablet by ity of tablet 00:00: mouth at [place] 00 bedtime. [facility] Branch telmisartan 2022-0 Yes [id number] 20mg Take 1 [facility] 20 mg 5-09 tablet by ity of tablet 00:00: mouth in [place] 00 the Medical morning. Branch pravastatin 2022-0 Yes [id number] 10mg Take 1 [facility] 10 mg 5-09 tablet by ity of tablet 00:00: mouth at [place] 00 bedtime. [facility] Branch telmisartan 3-0 Yes [id number] 20mg Take 1 [facility] 20 mg 5-09 tablet by ity of tablet 00:00: mouth in [place] 00 the Medical morning. Branch pravastatin 3-0 Yes [id number] 10mg Take 1 [facility] 10 mg 5-09 tablet by ity of tablet 00:00: mouth at [place] 00 bedtime. [facility] Branch telmisartan 2022-0 Yes [id number] 20mg Take 1 [facility] 20 mg 5-09 tablet by ity of tablet 00:00: mouth in [place] 00 the Medical morning. Branch pravastatin 3-0 Yes [id number] 10mg Take 1 [facility] 10 mg 5-09 tablet by ity of tablet 00:00: mouth at [place] [address] bedtime. Medical Branch telmisartan 3-0 Yes [id number] 20mg Take 1 [facility] 20 mg 5-09 tablet by ity of tablet 00:00: mouth in [place] 00 the Medical morning. Branch pravastatin 3-0 Yes [id number] 10mg Take 1 [facility] 10 mg 5-09 tablet by ity of tablet 00:00: mouth at [place] 00 bedtime. Medical Branch telmisartan 3-0 Yes [id number] 20mg Take 1 [facility] 20 mg 5-09 tablet by ity of tablet 00:00: mouth in [place] the Medical morning. Branch pravastatin 3-0 Yes [id number] 10mg Take 1 [facility] 10 mg 5-09 tablet by ity of tablet 00:00: mouth at [place] [address] bedtime. Medical Branch telmisartan 3-0 Yes [id number] 20mg Take 1 [facility] 20 mg 5-09 tablet by ity of tablet 00:00: mouth in [place] the Medical morning. Branch pravastatin 3-0 Yes [id number] 10mg Take 1 [facility] 10 mg 5-09 tablet by ity of tablet 00:00: mouth at [place] [address] bedtime. Medical Branch telmisartan 3-0 Yes [id number] 20mg Take 1 [facility] 20 mg 5-09 tablet by ity of tablet 00:00: mouth in [place] the Medical morning. Branch pravastatin 2023-0 Yes [id number] 10mg Take 1 [facility] 10 mg 5-09 tablet by ity of tablet 00:00: mouth at [place] 00 bedtime. Medical Branch telmisartan 3-0 Yes [id number] 20mg Take 1 [facility] 20 mg 5-09 tablet by ity of tablet 00:00: mouth in [place] the Medical morning. Branch pravastatin 2023-0 Yes [id number] 10mg Take 1 [facility] 10 mg 5-09 tablet by ity of tablet 00:00: mouth at [place] [address] bedtime. Medical Branch telmisartan 2023-0 Yes [id number] 20mg Take 1 [facility] 20 mg 5-09 tablet by ity of tablet 00:00: mouth in [place] the Medical morning. Branch pravastatin 2022-0 Yes [id number] 10mg Take 1 [facility] 10 mg 5-09 tablet by ity of tablet 00:00: mouth at [place] [address] bedtime. Medical Branch telmisartan 2022-0 Yes [id number] 20mg Take 1 [facility] 20 mg 5-09 tablet by ity of tablet 00:00: mouth in [place] the morning. Branch pravastatin 2022-0 Yes [id number] 10mg Take 1 [facility] 10 mg 5-09 tablet by ity of tablet 00:00: mouth at [place] [address] bedtime. Medical Branch telmisartan 2022-0 Yes [id number] 20mg Take 1 [facility] 20 mg 5-09 tablet by ity of tablet 00:00: mouth in [place] the morning. Branch pravastatin 2022-0 Yes [id number] 10mg Take 1 [facility] 10 mg 5-09 tablet by ity of tablet 00:00: mouth at [place] [address] bedtime. Medical Branch telmisartan 2022-0 Yes [id number] 20mg Take 1 [facility] 20 mg 5-09 tablet by ity of tablet 00:00: mouth in [place] the morning. Branch pravastatin 2022-0 Yes [id number] 10mg Take 1 [facility] 10 mg 5-09 tablet by ity of tablet 00:00: mouth at [place] [address] bedtime. Medical Branch telmisartan 2022-0 Yes [id number] 20mg Take 1 [facility] 20 mg 5-09 tablet by ity of tablet 00:00: mouth in [place] the morning. Branch pravastatin 2022-0 Yes [id number] 10mg Take 1 [facility] 10 mg 5-09 tablet by ity of tablet 00:00: mouth at [place] [address] bedtime. Medical Branch diazePAM 2022-0 Yes [id number] 1{spray Use 1 [facility] (VALTOCO) 5-08 } [place] in ity of 15 mg/2 00:00: each [place] spray 00 nostril Medical (7.5/0.1mL SEE-INSTRU [facility] x 2) [place] CTIONS. 1 spray in each nostril for seizure cluster or prolong seizure. May repeat in 4 hours or more, if needed and tolerated. Max 2 sprays in each nostril per episode. Do not use for >1 episode in 5 days or >5 days per month. lamoTRIgine 0 Yes [id number] 300mg Take 2 [facility] 150 mg 5-08 tablets by ity of tablet 00:00: mouth in [place] 00 the Medical morning Branch and 2 tablets in the evening. lamoTRIgine 2023-0 Yes [id number] 25mg Take 1 [facility] 25 mg 5-08 tablet by ity of tablet 00:00: mouth in [place] 00 the [facility] morning Branch and 1 tablet in the evening. levETIRAcet 2023-0 Yes [id number] 1500mg Take 2 [facility] am 750 mg 5-08 tablets by ity of tablet 00:00: mouth in [place] [address] the [facility] morning Branch and 2 tablets in the evening. zonisamide 2023-0 Yes [id number] 300mg Take 3 [facility] 100 mg 5-08 capsules ity of capsule 00:00: by mouth [place] 00 every 12 Medical (twelve) Branch hours. zonisamide 3-0 Yes [id number] 50mg Take 1 [facility] 50 mg 5-08 capsule by ity of capsule 00:00: mouth at [place] [address] bedtime. Medical Branch diazePAM 2022-0 Yes [id number] 1{spray Use 1 [facility] (VALTOCO) 5-08 } [place] in ity of 15 mg/2 00:00: each [place] spray 00 nostril Medical (7.5/0.1mL SEE-INSTRU [facility] x 2) [place] CTIONS. 1 spray in each nostril for seizure cluster or prolong seizure. May repeat in 4 hours or more, if needed and tolerated. Max 2 sprays in each nostril per episode. Do not use for >1 episode in 5 days or >5 days per month. lamoTRIgine 2023-0 Yes [id number] 300mg Take 2 [facility] 150 mg 5-08 tablets by ity of tablet 00:00: mouth in [place] [address] the [facility] morning Branch and 2 tablets in the evening. lamoTRIgine 2023-0 Yes [id number] 25mg Take 1 [facility] 25 mg 5-08 tablet by ity of tablet 00:00: mouth in [place] [address] the [facility] morning Branch and 1 tablet in the evening. levETIRAcet 2023-0 Yes [id number] 1500mg Take 2 [facility] am 750 mg 5-08 tablets by ity of tablet 00:00: mouth in [place] [address] the [facility] morning Branch and 2 tablets in the evening. zonisamide 2023-0 Yes [id number] 300mg Take 3 [facility] 100 mg 5-08 capsules ity of capsule 00:00: by mouth [place] every 12 Medical (twelve) Branch hours. zonisamide 2023-0 Yes [id number] 50mg Take 1 [facility] 50 mg 5-08 capsule by ity of capsule 00:00: mouth at [place] [address] bedtime. Medical Branch diazePAM 2022-0 Yes [id number] 1{spray Use 1 [facility] (VALTOCO) 5-08 } [place] in ity of 15 mg/2 00:00: each [place] 00 nostril Medical (7.5/0.1mL SEE-INSTRU [facility] x 2) [place] CT[facility]. 1 spray in each nostril for seizure cluster or prolong seizure. May repeat in 4 hours or more, if needed and tolerated. Max 2 sprays in each nostril per episode. Do not use for >1 episode in 5 days or >5 days per month. lamoTRIgine 3-0 Yes [id number] 300mg Take 2 [facility] 150 mg 5-08 tablets by ity of tablet 00:00: mouth in [place] [address] the Medical morning Branch and 2 tablets in the evening. lamoTRIgine 2023-0 Yes [id number] 25mg Take 1 [facility] 25 mg 5-08 tablet by ity of tablet 00:00: mouth in [place] [address] the Medical morning Branch and 1 tablet in the evening. levETIRAcet 3-0 Yes [id number] 1500mg Take 2 [facility] am 750 mg 5-08 tablets by ity of tablet 00:00: mouth in [place] [address] the Medical morning Branch and 2 tablets in the evening. zonisamide 2023-0 Yes [id number] 300mg Take 3 [facility] 100 mg 5-08 capsules ity of capsule 00:00: by mouth [place] 00 every 12 Medical (twelve) Branch hours. zonisamide 2023-0 Yes [id number] 50mg Take 1 [facility] 50 mg 5-08 capsule by ity of capsule 00:00: mouth at [place] [address] bedtime. Medical Branch diazePAM 2022-0 Yes [id number] 1{spray Use 1 [facility] (VALTOCO) 5-08 } [place] in ity of 15 mg/2 00:00: each [place] spray 00 nostril Medical (7.5/0.1mL SEE-INSTRU [facility] x 2) [place] CT[facility]. 1 spray in each nostril for seizure cluster or prolong seizure. May repeat in 4 hours or more, if needed and tolerated. Max 2 sprays in each nostril per episode. Do not use for >1 episode in 5 days or >5 days per month. lamoTRIgine 2023-0 Yes [id number] 300mg Take 2 [facility] 150 mg 5-08 tablets by ity of tablet 00:00: mouth in [place] [address] the Medical morning Branch and 2 tablets in the evening. lamoTRIgine 2023-0 Yes [id number] 25mg Take 1 [facility] 25 mg 5-08 tablet by ity of tablet 00:00: mouth in [place] [address] the Medical morning Branch and 1 tablet in the evening. levETIRAcet 2023-0 Yes [id number] 1500mg Take 2 [facility] am 750 mg 5-08 tablets by ity of tablet 00:00: mouth in [place] [address] the [facility] morning Branch and 2 tablets in the evening. zonisamide 2023-0 Yes [id number] 300mg Take 3 [facility] 100 mg 5-08 capsules ity of capsule 00:00: by mouth [place] 00 every 12 Medical (twelve) Branch hours. zonisamide 2023-0 Yes [id number] 50mg Take 1 [facility] 50 mg 5-08 capsule by ity of capsule 00:00: mouth at [place] 00 bedtime. Medical Branch diazePAM 2023-0 Yes [id number] 1{spray Use 1 [facility] (VALTOCO) 5-08 } [place] in ity of 15 mg/2 00:00: each [place] spray 00 nostril Medical (7.5/0.1mL SEE-INSTRU Bra [facility] x 2) [place] CTIONS. 1 spray in each nostril for seizure cluster or prolong seizure. May repeat in 4 hours or more, if needed and tolerated. Max 2 sprays in each nostril per episode. Do not use for >1 episode in 5 days or >5 days per month. lamoTRIgine 2023-0 Yes [id number] 300mg Take 2 [facility] 150 mg 5-08 tablets by ity of tablet 00:00: mouth in [place] [address] the [facility] morning Branch and 2 tablets in the evening. lamoTRIgine 2023-0 Yes [id number] 25mg Take 1 [facility] 25 mg 5-08 tablet by ity of tablet 00:00: mouth in [place] [address] the [facility] morning Branch and 1 tablet in the evening. levETIRAcet 2023-0 Yes [id number] 1500mg Take 2 [facility] am 750 mg 5-08 tablets by ity of tablet 00:00: mouth in [place] [address] the [facility] morning Branch and 2 tablets in the evening. zonisamide 2023-0 Yes [id number] 300mg Take 3 [facility] 100 mg 5-08 capsules ity of capsule 00:00: by mouth [place] 00 every 12 Medical (twelve) Branch hours. zonisamide 3-0 Yes [id number] 50mg Take 1 [facility] 50 mg 5-08 capsule by ity of capsule 00:00: mouth at [place] [address] bedtime. Medical Branch diazePAM 3-0 Yes [id number] 1{spray Use 1 [facility] (VALTOCO) 5-08 } [place] in ity of 15 mg/2 00:00: each [place] spray 00 nostril Medical (7.5/0.1mL SEE-INSTRU Bra nch x 2) [place] CTIONS. 1 spray in each nostril for seizure cluster or prolong seizure. May repeat in 4 hours or more, if needed and tolerated. Max 2 sprays in each nostril per episode. Do not use for >1 episode in 5 days or >5 days per month. lamoTRIgine 2023-0 Yes [id number] 300mg Take 2 [facility] 150 mg 5-08 tablets by ity of tablet 00:00: mouth in [address] and 2 tablets in the evening. lamoTRIgine 2023-0 Yes [id number] 25mg Take 1 [facility] 25 mg 5-08 tablet by ity of tablet 00:00: mouth in [address] morning [place] and 1 tablet in the evening. levETIRAcet 2023-0 Yes [id number] 1500mg Take 2 [facility] am 750 mg 5-08 tablets by ity of tablet 00:00: mouth in [place] [address] the [facility] and 2 tablets in the evening. zonisamide 2023-0 Yes [id number] 300mg Take 3 [facility] 100 mg 5-08 capsules ity of capsule 00:00: by mouth [place] 00 every 12 Medical (twelve) Branch hours. zonisamide 2023-0 Yes [id number] 50mg Take 1 [facility] 50 mg 5-08 capsule by ity of capsule 00:00: mouth at [place] 00 bedtime. Medical Branch diazePAM 2022-0 Yes [id number] 1{spray Use 1 [facility] (VALTOCO) 5-08 } [place] in ity of 15 mg/2 00:00: each [place] spray 00 nostril Medical (7.5/0.1mL SEE-INSTRU Bra nch x 2) [place] CTIONS. 1 spray in each nostril for seizure cluster or prolong seizure. May repeat in 4 hours or more, if needed and tolerated. Max 2 sprays in each nostril per episode. Do not use for >1 episode in 5 days or >5 days per month. lamoTRIgine 2023-0 Yes [id number] 300mg Take 2 [facility] 150 mg 5-08 tablets by ity of tablet 00:00: mouth in [place] [address] the [facility] morning Branch and 2 tablets in the evening. lamoTRIgine 2022-0 Yes [id number] 25mg Take 1 [facility] 25 mg 5-08 tablet by ity of tablet 00:00: mouth in [place] [address] the [facility] morning Branch and 1 tablet in the evening. levETIRAcet 2022-0 Yes [id number] 1500mg Take 2 [facility] am 750 mg 5-08 tablets by ity of tablet 00:00: mouth in [place] [address] the [facility] morning Branch and 2 tablets in the evening. zonisamide 3-0 Yes [id number] 300mg Take 3 [facility] 100 mg 5-08 capsules ity of capsule 00:00: by mouth [place] 00 every 12 Medical (twelve) Branch hours. zonisamide 3-0 Yes [id number] 50mg Take 1 [facility] 50 mg 5-08 capsule by ity of capsule 00:00: mouth at [place] [address] bedtime. Medical Branch diazePAM 3-0 Yes [id number] 1{spray Use 1 [facility] (VALTOCO) 5-08 } [place] in ity of 15 mg/2 00:00: each [place] spray 00 nostril Medical (7.5/0.1mL SEE-INSTRU Bra nch x 2) [place] CTIONS. 1 spray in each nostril for seizure cluster or prolong seizure. May repeat in 4 hours or more, if needed and tolerated. Max 2 sprays in each nostril per episode. Do not use for >1 episode in 5 days or >5 days per month. lamoTRIgine 2023-0 Yes [id number] 300mg Take 2 [facility] 150 mg 5-08 tablets by ity of tablet 00:00: mouth in [place] 00 the Medical morning Branch and 2 tablets in the evening. lamoTRIgine 2023-0 Yes [id number] 25mg Take 1 [facility] 25 mg 5-08 tablet by ity of tablet 00:00: mouth in [place] 00 the Medical morning Branch and 1 tablet in the evening. levETIRAcet 2023-0 Yes [id number] 1500mg Take 2 [facility] am 750 mg 5-08 tablets by ity of tablet 00:00: mouth in [place] 00 the Medical morning Branch and 2 tablets in the evening. zonisamide 2023-0 Yes [id number] 300mg Take 3 [facility] 100 mg 5-08 capsules ity of capsule 00:00: by mouth [place] 00 every 12 Medical (twelve) Branch hours. zonisamide 2023-0 Yes [id number] 50mg Take 1 [facility] 50 mg 5-08 capsule by ity of capsule 00:00: mouth at [place] [address] bedtime. Medical Branch diazePAM 3-0 Yes [id number] 1{spray Use 1 [facility] (VALTOCO) 5-08 } [place] in ity of 15 mg/2 00:00: each [place] spray 00 nostril Medical (7.5/0.1mL SEE-INSTRU Bra nch x 2) [place] CTIONS. 1 spray in each nostril for seizure cluster or prolong seizure. May repeat in 4 hours or more, if needed and tolerated. Max 2 sprays in each nostril per episode. Do not use for >1 episode in 5 days or >5 days per month. lamoTRIgine 2023-0 Yes [id number] 300mg Take 2 [facility] 150 mg 5-08 tablets by ity of tablet 00:00: mouth in [place] [address] the Medical morning Branch and 2 tablets in the evening. lamoTRIgine 2023-0 Yes [id number] 25mg Take 1 [facility] 25 mg 5-08 tablet by ity of tablet 00:00: mouth in [place] [address] the [facility] morning Branch and 1 tablet in the evening. levETIRAcet 2023-0 Yes [id number] 1500mg Take 2 [facility] am 750 mg 5-08 tablets by ity of tablet 00:00: mouth in [place] 00 the Medical morning Branch and 2 tablets in the evening. zonisamide 2022-0 Yes [id number] 300mg Take 3 [facility] 100 mg 5-08 capsules ity of capsule 00:00: by mouth [place] 00 every 12 Medical (twelve) Branch hours. zonisamide 2022-0 Yes [id number] 50mg Take 1 [facility] 50 mg 5-08 capsule by ity of capsule 00:00: mouth at [place] 00 bedtime. Medical Branch diazePAM 2022- No [id number] 1{spray Use 1 [facility] (VALTOCO) 06-24- } [place] in ity o f 15 mg/2 00:00: 00:00 each [place] spray 00 :00 nostril Medical (7.5/0.1mL SEE-INSTRU Bra nch x 2) [place] CTIONS. 1 spray in each nostril for seizure cluster or prolong seizure. May repeat in 4 hours or more, if needed and tolerated. Max 2 sprays in each nostril per episode. Do not use for >1 episode in 5 days or >5 days per month. lamoTRIgine 2022- No [id number] 300mg Take 2 [facility] 150 mg 06-24 tablets by ity of tablet 00:00: 00:00 mouth in [place] 00 :00 the Medical morning Branch and 2 tablets in the evening. lamoTRIgine 2022- No [id number] 25mg Take 1 [facility] 25 mg 06-24- tablet by ity of tablet 00:00: 00:00 mouth in [place] 00 :00 the Medical morning Branch and 1 tablet in the evening. levETIRAcet 2022- No [id number] 1500mg Take 2 [facility] am 750 mg 06-24-07 tablets by ity of tablet 00:00: 00:00 mouth in [place] 00 :00 the Medical morning Branch and 2 tablets in the evening. zonisamide 2022- No [id number] 300mg Take 3 [facility] 100 mg 5-09 24-07 capsules ity of capsule 00:00: 00:00 by mouth [place] 00 :00 every 12 Medical (twelve) Branch hours. zonisamide 0 2022- No [id number] 50mg Take 1 [facility] 50 mg 5-09 24-07 capsule by ity of capsule 00:00: 00:00 mouth at [place] 00 :00 bedtime. Medical Branch diazePAM 2022- No [id number] 1{spray Use 1 [facility] (VALTOCO) 06-24-07 } [place] in ity o f 15 mg/2 00:00: 00:00 each [place] spray 00 :00 nostril Medical (7.5/0.1mL SEE-INSTRU Bra nch x 2) [place] CTIONS. 1 spray in each nostril for seizure cluster or prolong seizure. May repeat in 4 hours or more, if needed and tolerated. Max 2 sprays in each nostril per episode. Do not use for >1 episode in 5 days or >5 days per month. lamoTRIgine No [id number] 300mg Take 2 [facility] 150 mg 06-24-07 tablets by ity of tablet 00:00: 00:00 mouth in [place] 00 :00 the Medical morning Branch and 2 tablets in the evening. lamoTRIgine No [id number] 25mg Take 1 [facility] 25 mg 06-24-07 tablet by ity of tablet 00:00: 00:00 mouth in [place] 00 :00 the Medical morning Branch and 1 tablet in the evening. levETIRAcet No [id number] 1500mg Take 2 [facility] am 750 mg 06-24-07 tablets by ity of tablet 00:00: 00:00 mouth in [place] 00 :00 the Medical morning Branch and 2 tablets in the evening. zonisamide 2022- No [id number] 300mg Take 3 [facility] 100 mg 06-24-07 capsules ity of capsule 00:00: 00:00 by mouth [place] 00 :00 every 12 Medical (twelve) Branch hours. zonisamide 2022- No [id number] 50mg Take 1 [facility] 50 mg 5-09 24-07 capsule by ity of capsule 00:00: 00:00 mouth at [place] 00 :00 bedtime. Medical Branch diazePAM 2022- No [id number] 1{spray Use 1 [facility] (VALTOCO) 06-24-07 } [place] in ity o f 15 mg/2 00:00: 00:00 each [place] spray 00 :00 nostril Medical (7.5/0.1mL SEE-INSTRU Bra nch x 2) [place] CTIONS. 1 spray in each nostril for seizure cluster or prolong seizure. May repeat in 4 hours or more, if needed and tolerated. Max 2 sprays in each nostril per episode. Do not use for >1 episode in 5 days or >5 days per month. lamoTRIgine 2022- No [id number] 300mg Take 2 [facility] 150 mg 06-24- tablets by ity of tablet 00:00: 00:00 mouth in [place] 00 :00 the Medical morning Branch and 2 tablets in the evening. lamoTRIgine 2022-0 2022- No [id number] 25mg Take 1 [facility] 25 mg 06-24- tablet by ity of tablet 00:00: 00:00 mouth in [place] 00 :00 the Medical morning Branch and 1 tablet in the evening. levETIRAcet 0 2022- No [id number] 1500mg Take 2 [facility] am 750 mg 06-24- tablets by ity of tablet 00:00: 00:00 mouth in [place] 00 :00 the Medical morning Branch and 2 tablets in the evening. zonisamide 2022-0 2022- No [id number] 300mg Take 3 [facility] 100 mg 06-24- capsules ity of capsule 00:00: 00:00 by mouth [place] 00 :00 every 12 Medical (twelve) Branch hours. zonisamide 2022-2022- No [id number] 50mg Take 1 [facility] 50 mg 06-24 capsule by ity of capsule 00:00: 00:00 mouth at [place] 00 :00 bedtime. Medical Branch diazePAM 2022-2022- No [id number] 1{spray Use 1 [facility] (VALTOCO) 06-24 } [place] in ity o f 15 mg/2 00:00: 00:00 each [place] spray 00 :00 nostril Medical (7.5/0.1mL SEE-INSTRU Bra nch x 2) [place] CTIONS. 1 spray in each nostril for seizure cluster or prolong seizure. May repeat in 4 hours or more, if needed and tolerated. Max 2 sprays in each nostril per episode. Do not use for >1 episode in 5 days or >5 days per month. lamoTRIgine 3-0 3- No [id number] 300mg Take 2 [facility] 150 mg 5-08 08-07 tablets by ity of tablet 00:00: 00:00 mouth in [place] 00 :00 the [facility] morning Branch and 2 tablets in the evening. lamoTRIgine 3-0 3- No [id number] 25mg Take 1 [facility] 25 mg 5-08 08-07 tablet by ity of tablet 00:00: 00:00 mouth in [place] 00 :00 the [facility] Branch and 1 tablet in the evening. levETIRAcet 2022-0 2022- No [id number] 1500mg Take 2 [facility] am 750 mg 5- 08-07 tablets by ity of tablet 00:00: 00:00 mouth in [place] 00 :00 the [facility] and 2 tablets in the evening. zonisamide 2022-0 3- No [id number] 300mg Take 3 [facility] 100 mg 5-09 24-07 capsules ity of capsule 00:00: 00:00 by mouth [place] 00 :00 every 12 Medical (twelve) Branch hours. zonisamide 2022-0 2022- No [id number] 50mg Take 1 [facility] 50 mg 5-09 24-07 capsule by ity of capsule 00:00: 00:00 mouth at [place] 00 :00 bedtime. Medical Branch lamoTRIgine 3-0 Yes [id number] 300mg Take 2 [facility] 150 mg 2-06 tablets by ity of tablet 00:00: mouth in [place] [address] the [facility] Branch and 2 tablets in the evening. lamoTRIgine 3-0 Yes [id number] 25mg Take 1 [facility] 25 mg 2-06 tablet by ity of tablet 00:00: mouth in [place] 00 the [facility] morning Branch and 1 tablet in the evening. levETIRAcet 3-0 Yes [id number] 1500mg Take 2 [facility] am 750 mg 2-06 tablets by ity of tablet 00:00: mouth in [place] [address] the [facility] morning Branch and 2 tablets in the evening. midazolam 3-0 Yes [id number] 1{spray Use 1 [facility] (NAYZILAM) 2-06 } [place] in 1 ity of 5 mg/spray 00:00: nostril [place] (0.1 mL) 00 SEE-INSTRU Medic al [place] CTIONS. 1 Branch spray in ONE nostril for seizure lasting more than 3 minutes or for seizure cluster; may repeat dose in 10 minutes in other nostril if needed (do not repeat if the patient is having trouble breathing or excessive sedation). Do not exceed 2 sprays for single episode. Do not use for more than one episode in a 3-day span in more than 5 episodes in a month. zonisamide 2023-0 Yes [id number] 300mg Take 3 [facility] 100 mg 2-06 capsules ity of capsule 00:00: by mouth [place] 00 every 12 Medical (twelve) Branch hours. zonisamide 2023-0 Yes [id number] 50mg Take 1 [facility] 50 mg 2-06 capsule by ity of capsule 00:00: mouth at [place] 00 bedtime. Medical Branch lamoTRIgine 2023-0 Yes [id number] 300mg Take 2 [facility] 150 mg 2-06 tablets by ity of tablet 00:00: mouth in [place] 00 the Medical morning Branch and 2 tablets in the evening. lamoTRIgine 2023-0 Yes [id number] 25mg Take 1 [facility] 25 mg 2-06 tablet by ity of tablet 00:00: mouth in [place] 00 the Medical morning Branch and 1 tablet in the evening. levETIRAcet 3-0 Yes [id number] 1500mg Take 2 [facility] am 750 mg 2-06 tablets by ity of tablet 00:00: mouth in [place] 00 the Medical morning Branch and 2 tablets in the evening. midazolam 2022-0 Yes [id number] 1{spray Use 1 [facility] (NAYZILAM) 2-06 } [place] in 1 ity of 5 mg/spray 00:00: nostril [place] (0.1 mL) 00 SEE-INSTRU Medic al [place] CTIONS. 1 Branch spray in ONE nostril for seizure lasting more than 3 minutes or for seizure cluster; may repeat dose in 10 minutes in other nostril if needed (do not repeat if the patient is having trouble breathing or excessive sedation). Do not exceed 2 sprays for single episode. Do not use for more than one episode in a 3-day span in more than 5 episodes in a month. zonisamide 2023-0 Yes [id number] 300mg Take 3 [facility] 100 mg 2-06 capsules ity of capsule 00:00: by mouth [place] 00 every 12 Medical (twelve) Branch hours. zonisamide 3-0 Yes [id number] 50mg Take 1 [facility] 50 mg 2-06 capsule by ity of capsule 00:00: mouth at [place] 00 bedtime. Medical Branch lamoTRIgine 3-0 Yes [id number] 300mg Take 2 [facility] 150 mg 2-06 tablets by ity of tablet 00:00: mouth in [place] 00 the Medical morning Branch and 2 tablets in the evening. lamoTRIgine 3-0 Yes [id number] 25mg Take 1 [facility] 25 mg 2-06 tablet by ity of tablet 00:00: mouth in [place] 00 the Medical morning Branch and 1 tablet in the evening. levETIRAcet 3-0 Yes [id number] 1500mg Take 2 [facility] am 750 mg 2-06 tablets by ity of tablet 00:00: mouth in [place] 00 the Medical morning Branch and 2 tablets in the evening. midazolam 2022-0 Yes [id number] 1{spray Use 1 [facility] (NAYZILAM) 2-06 } [place] in 1 ity of 5 mg/spray 00:00: nostril [place] (0.1 mL) 00 SEE-INSTRU Medic al [place] CTIONS. 1 Branch spray in ONE nostril for seizure lasting more than 3 minutes or for seizure cluster; may repeat dose in 10 minutes in other nostril if needed (do not repeat if the patient is having trouble breathing or excessive sedation). Do not exceed 2 sprays for single episode. Do not use for more than one episode in a 3-day span in more than 5 episodes in a month. zonisamide 3-0 Yes [id number] 300mg Take 3 [facility] 100 mg 2-06 capsules ity of capsule 00:00: by mouth [place] 00 every 12 Medical (twelve) Branch hours. zonisamide 3-0 Yes [id number] 50mg Take 1 [facility] 50 mg 2-06 capsule by ity of capsule 00:00: mouth at [place] [address] bedtime. Medical Branch lamoTRIgine 3-0 Yes [id number] 300mg Take 2 [facility] 150 mg 2-06 tablets by ity of tablet 00:00: mouth in [place] 00 the Medical morning Branch and 2 tablets in the evening. lamoTRIgine 2023-0 Yes [id number] 25mg Take 1 [facility] 25 mg 2-06 tablet by ity of tablet 00:00: mouth in [place] 00 the Medical morning Branch and 1 tablet in the evening. levETIRAcet 3-0 Yes [id number] 1500mg Take 2 [facility] am 750 mg 2-06 tablets by ity of tablet 00:00: mouth in [place] 00 the Medical morning Branch and 2 tablets in the evening. midazolam 3-0 Yes [id number] 1{spray Use 1 [facility] (NAYZILAM) 2-06 } [place] in 1 ity of 5 mg/spray 00:00: nostril [place] (0.1 mL) 00 SEE-INSTRU Medic al [place] CTIONS. 1 Branch spray in ONE nostril for seizure lasting more than 3 minutes or for seizure cluster; may repeat dose in 10 minutes in other nostril if needed (do not repeat if the patient is having trouble breathing or excessive sedation). Do not exceed 2 sprays for single episode. Do not use for more than one episode in a 3-day span in more than 5 episodes in a month. zonisamide 2022-0 Yes [id number] 300mg Take 3 [facility] 100 mg 2-06 capsules ity of capsule 00:00: by mouth [place] 00 every 12 Medical (twelve) Branch hours. zonisamide 2022-0 Yes [id number] 50mg Take 1 [facility] 50 mg 2-06 capsule by ity of capsule 00:00: mouth at [place] 00 bedtime. Medical Branch lamoTRIgine 2022-0 3- No [id number] 300mg Take 2 [facility] 150 mg 2-06 05-08 tablets by ity of tablet 00:00: 00:00 mouth in [place] 00 :00 the Medical morning Branch and 2 tablets in the evening. lamoTRIgine 3-0 3- No [id number] 25mg Take 1 [facility] 25 mg 2-06 05-08 tablet by ity of tablet 00:00: 00:00 mouth in [place] 00 :00 the Medical morning Branch and 1 tablet in the evening. levETIRAcet 3-0 2023- No [id number] 1500mg Take 2 [facility] am 750 mg 2-06 05-08 tablets by ity of tablet 00:00: 00:00 mouth in [place] 00 :00 the Medical morning Branch and 2 tablets in the evening. midazolam 2022- No [id number] 1{spray Use 1 [facility] (NAYZILAM) 03-25-08 } [place] in 1 it y of 5 mg/spray 00:00: 00:00 nostril [place] (0.1 mL) 00 :00 SEE-INSTRU Medic al [place] CTIONS. 1 Branch spray in ONE nostril for seizure lasting more than 3 minutes or for seizure cluster; may repeat dose in 10 minutes in other nostril if needed (do not repeat if the patient is having trouble breathing or excessive sedation). Do not exceed 2 sprays for single episode. Do not use for more than one episode in a 3-day span in more than 5 episodes in a month. zonisamide 2022- No [id number] 300mg Take 3 [facility] 100 mg 03-25-08 capsules ity of capsule 00:00: 00:00 by mouth [place] 00 :00 every 12 Medical (twelve) Branch hours. zonisamide 2022- No [id number] 50mg Take 1 [facility] 50 mg 03-25-08 capsule by ity of capsule 00:00: 00:00 mouth at [place] 00 :00 bedtime. Medical Branch lamoTRIgine 2022- No [id number] 300mg Take 2 [facility] 150 mg 03-25-08 tablets by ity of tablet 00:00: 00:00 mouth in [place] 00 :00 the Medical morning Branch and 2 tablets in the evening. lamoTRIgine 2022- No [id number] 25mg Take 1 [facility] 25 mg 03-25-08 tablet by ity of tablet 00:00: 00:00 mouth in [place] 00 :00 the Medical morning Branch and 1 tablet in the evening. levETIRAcet 2022- No [id number] 1500mg Take 2 [facility] am 750 mg 03-25-08 tablets by ity of tablet 00:00: 00:00 mouth in [place] 00 :00 the Medical morning Branch and 2 tablets in the evening. midazolam 2022- No [id number] 1{spray Use 1 [facility] (NAYZILAM) 03-25-08 } [place] in 1 it y of 5 mg/spray 00:00: 00:00 nostril [place] (0.1 mL) 00 :00 SEE-INSTRU Medic al [place] CTIONS. 1 Branch spray in ONE nostril for seizure lasting more than 3 minutes or for seizure cluster; may repeat dose in 10 minutes in other nostril if needed (do not repeat if the patient is having trouble breathing or excessive sedation). Do not exceed 2 sprays for single episode. Do not use for more than one episode in a 3-day span in more than 5 episodes in a month. zonisamide No [id number] 300mg Take 3 [facility] 100 mg 03-25-08 capsules ity of capsule 00:00: 00:00 by mouth [place] 00 :00 every 12 Medical (twelve) Branch hours. zonisamide No [id number] 50mg Take 1 [facility] 50 mg 03-25-08 capsule by ity of capsule 00:00: 00:00 mouth at [place] 00 :00 bedtime. Medical Branch SERTraline 2021-02- No 50mg Take 50 mg Univers 50 mg -03 by mouth ity of tablet 14:57: 00:00 at [place] 56 :00 bedtime. Medical Branch SERTraline 2021-02- No 50mg Take 50 mg [facility] 50 mg -03 by mouth ity of tablet 14:57: 00:00 at [place] 56 :00 bedtime. Medical Branch SERTraline 2021-02- No 50mg Take 50 mg [facility] 50 mg 02-1903 by mouth ity of tablet 14:57: 00:00 at [place] 56 :00 bedtime. Medical Branch SERTraline 2021-02- No 50mg Take 50 mg [facility] 50 mg -03 03 by mouth ity of tablet 14:57: 00:00 at [place] 56 :00 bedtime. Medical Branch SERTraline 2021-02 Yes [id number] 50mg Take 1 [facility] 50 mg 1-03 tablet by ity of tablet 00:00: mouth at [place] [address] bedtime. Medical Branch SERTraline 2021-02 Yes [id number] 50mg Take 1 [facility] 50 mg 1-03 tablet by ity of tablet 00:00: mouth at [place] [address] bedtime. Medical Branch SERTraline 2021-02 Yes [id number] 50mg Take 1 [facility] 50 mg 1-03 tablet by ity of tablet 00:00: mouth at [place] 00 bedtime. Medical Branch SERTraline 2021-02 Yes [id number] 50mg Take 1 [facility] 50 mg 1-03 tablet by ity of tablet 00:00: mouth at [place] 00 bedtime. Medical Branch SERTraline 2021-02 Yes [id number] 50mg Take 1 [facility] 50 mg 1-03 tablet by ity of tablet 00:00: mouth at [place] 00 bedtime. Medical Branch SERTraline 2021-02 Yes [id number] 50mg Take 1 [facility] 50 mg 1-03 tablet by ity of tablet 00:00: mouth at [place] 00 bedtime. Medical Branch SERTraline 2021-02 Yes [id number] 50mg Take 1 [facility] 50 mg 1-03 tablet by ity of tablet 00:00: mouth at [place] [address] bedtime. Medical Branch SERTraline 2021-02 Yes [id number] 50mg Take 1 [facility] 50 mg 1-03 tablet by ity of tablet 00:00: mouth at [place] [address] bedtime. Medical Branch SERTraline 2021-02 Yes [id number] 50mg Take 1 [facility] 50 mg 1-03 tablet by ity of tablet 00:00: mouth at [place] [address] bedtime. Medical Branch SERTraline 2021-02 Yes [id number] 50mg Take 1 [facility] 50 mg 1-03 tablet by ity of tablet 00:00: mouth at [place] [address] bedtime. Medical Branch SERTraline 2021-02 Yes [id number] 50mg Take 1 [facility] 50 mg 1-03 tablet by ity of tablet 00:00: mouth at [place] [address] bedtime. Medical Branch SERTraline 2021-02 Yes [id number] 50mg Take 1 [facility] 50 mg 1-03 tablet by ity of tablet 00:00: mouth at [place] [address] bedtime. Medical Branch SERTraline 2021-02 Yes [id number] 50mg Take 1 [facility] 50 mg 1-03 tablet by ity of tablet 00:00: mouth at [place] 00 bedtime. Medical Branch SERTraline 2021-02 Yes [id number] 50mg Take 1 [facility] 50 mg 1-03 tablet by ity of tablet 00:00: mouth at [place] [address] bedtime. Medical Branch SERTraline 2021-02 Yes [id number] 50mg Take 1 [facility] 50 mg 1-03 tablet by ity of tablet 00:00: mouth at [place] [address] bedtime. [facility] Branch SERTraline 2021-02 Yes [id number] 50mg Take 1 [facility] 50 mg 1-03 tablet by ity of tablet 00:00: mouth at [place] [address] bedtime. [facility] SERTraline 2021-02 Yes [id number] 50mg Take 1 [facility] 50 mg 1-03 tablet by ity of tablet 00:00: mouth at [place] [address] bedtime. [facility] Branch SERTraline 2021-02 Yes [id number] 50mg Take 1 [facility] 50 mg 1-03 tablet by ity of tablet 00:00: mouth at [place] [address] bedtime. [facility] SERTraline 2021-02- No [id number] 50mg Take 1 [facility] 50 mg 1-03 08-07 tablet by ity of tablet 00:00: 00:00 mouth at [place] 00 :00 bedtime. [facility] SERTraline 2021-02- No [id number] 50mg Take 1 [facility] 50 mg 1-03 08-07 tablet by ity of tablet 00:00: 00:00 mouth at [place] 00 :00 bedtime. [facility] SERTraline 2021-02- No [id number] 50mg Take 1 [facility] 50 mg 1-03 08-07 tablet by ity of tablet 00:00: 00:00 mouth at [place] 00 :00 bedtime. [facility] SERTraline 2021-02- No [id number] 50mg Take 1 [facility] 50 mg 1-03 08-07 tablet by ity of tablet 00:00: 00:00 mouth at [place] 00 :00 bedtime. [facility] Branch PRAVASTATIN Yes [id number] TAKE ONE Univers 10 mg 9-19 (1) TABLET ity of tablet 00:00: BY MOUTH [place] [address] AT Medical BEDTIME. Branch PRAVASTATIN Yes [id number] TAKE ONE [facility] 10 mg 9-19 (1) TABLET ity of tablet 00:00: BY MOUTH [place] [address] AT Medical BEDTIME. Branch PRAVASTATIN Yes [id number] TAKE ONE [facility] 10 mg 9-19 (1) TABLET ity of tablet 00:00: BY MOUTH [place] [address] AT Medical BEDTIME. [place] PRAVASTATIN Yes [id number] TAKE ONE [facility] 10 mg 9-19 (1) TABLET ity of tablet 00:00: BY MOUTH [place] 00 AT Medical BEDTIME. Branch PRAVASTATIN 2021-0 Yes [id number] TAKE ONE [facility] 10 mg 9-19 (1) TABLET ity of tablet 00:00: BY MOUTH [place] 00 AT Medical BEDTIME. Branch PRAVASTATIN 2021-0 Yes [id number] TAKE ONE [facility] 10 mg 9-19 (1) TABLET ity of tablet 00:00: BY MOUTH [place] 00 AT Medical BEDTIME. Branch PRAVASTATIN 2021-0 Yes [id number] TAKE ONE [facility] 10 mg 9-19 (1) TABLET ity of tablet 00:00: BY MOUTH [place] 00 AT Medical BEDTIME. Branch PRAVASTATIN 2021-0 Yes [id number] TAKE ONE [facility] 10 mg 9-19 (1) TABLET ity of tablet 00:00: BY MOUTH [place] 00 AT Medical BEDTIME. Branch PRAVASTATIN 2021-0 Yes [id number] TAKE ONE [facility] 10 mg 9-19 (1) TABLET ity of tablet 00:00: BY MOUTH [place] 00 AT Medical BEDTIME. Branch PRAVASTATIN 2021-0 Yes [id number] TAKE ONE [facility] 10 mg 9-19 (1) TABLET ity of tablet 00:00: BY MOUTH [place] 00 AT Medical BEDTIME. Branch PRAVASTATIN 2021-0 Yes [id number] TAKE ONE [facility] 10 mg 9-19 (1) TABLET ity of tablet 00:00: BY MOUTH [place] 00 AT Medical BEDTIME. Branch PRAVASTATIN 2021-0 Yes [id number] TAKE ONE [facility] 10 mg 9-19 (1) TABLET ity of tablet 00:00: BY MOUTH [place] 00 AT Medical BEDTIME. Branch PRAVASTATIN 2021-0 Yes [id number] TAKE ONE [facility] 10 mg 9-19 (1) TABLET ity of tablet 00:00: BY MOUTH [place] 00 AT Medical BEDTIME. Branch PRAVASTATIN 2021-0 Yes [id number] TAKE ONE [facility] 10 mg 9-19 (1) TABLET ity of tablet 00:00: BY MOUTH [place] 00 AT Medical BEDTIME. Branch PRAVASTATIN 2021-0 Yes [id number] TAKE ONE [facility] 10 mg 9-19 (1) TABLET ity of tablet 00:00: BY MOUTH [place] 00 AT Medical BEDTIME. Branch PRAVASTATIN 2-0 2023- No [id number] TAKE ONE [facility] 10 mg 9-19 05-09 (1) TABLET ity of tablet 00:00: 00:00 BY MOUTH [place] 00 :00 AT Medical BEDTIME. Branch PRAVASTATIN 2021-0 3- No [id number] TAKE ONE [facility] 10 mg 9-19 05-09 (1) TABLET ity of tablet 00:00: 00:00 BY MOUTH [place] 00 :00 AT Medical BEDTIME. Branch lamoTRIgine 2021-0 Yes [id number] 300mg Take 2 [facility] 150 mg 5-26 tablets by ity of tablet 00:00: mouth 2 [place] (two) Medical times Branch daily. levETIRAcet 2-0 Yes [id number] 1500mg Take 2 [facility] am 750 mg 5-26 tablets by ity of tablet 00:00: mouth 2 [place] (two) Medical times Branch daily. zonisamide 2021-0 Yes [id number] 300mg Take 3 [facility] 100 mg 5-26 capsules ity of capsule 00:00: by mouth [place] 00 every 12 Medical (twelve) Branch hours. zonisamide 2-0 Yes [id number] 50mg Take 1 [facility] 50 mg 5-26 capsule by ity of capsule 00:00: mouth at [place] [address] bedtime. Medical Branch lamoTRIgine 2021-0 Yes [id number] 25mg Take 1 [facility] 25 mg 5-26 tablet by ity of tablet 00:00: mouth [address] [place] [address] (two) Medical times Branch daily. lamoTRIgine 2-0 Yes [id number] 300mg Take 2 [facility] 150 mg 5-26 tablets by ity of tablet 00:00: mouth 2 [place] (two) Medical times Branch daily. levETIRAcet 2-0 Yes [id number] 1500mg Take 2 [facility] am 750 mg 5-26 tablets by ity of tablet 00:00: mouth 2 [place] (two) Medical times Branch daily. zonisamide 2-0 Yes [id number] 300mg Take 3 [facility] 100 mg 5-26 capsules ity of capsule 00:00: by mouth [place] [address] every 12 Medical (twelve) Branch hours. zonisamide 2022-0 Yes [id number] 50mg Take 1 [facility] 50 mg 5-26 capsule by ity of capsule 00:00: mouth at [place] [address] bedtime. Medical Branch lamoTRIgine 2-0 Yes [id number] 25mg Take 1 [facility] 25 mg 5-26 tablet by ity of tablet 00:00: mouth 2 [place] 00 (two) Medical times Branch daily. lamoTRIgine 2022-0 Yes [id number] 300mg Take 2 [facility] 150 mg 5-26 tablets by ity of tablet 00:00: mouth [place] (two) Medical times Branch daily. levETIRAcet 2022-0 Yes [id number] 1500mg Take 2 [facility] am 750 mg 5-26 tablets by ity of tablet 00:00: mouth [place] (two) Medical times Branch daily. zonisamide 2022-0 Yes [id number] 300mg Take 3 [facility] 100 mg 5-26 capsules ity of capsule 00:00: by mouth [place] every 12 Medical (twelve) Branch hours. zonisamide 2022-0 Yes [id number] 50mg Take 1 [facility] 50 mg 5-26 capsule by ity of capsule 00:00: mouth at [place] [address] bedtime. Medical Branch lamoTRIgine 2022-0 Yes [id number] 25mg Take 1 [facility] 25 mg 5-26 tablet by ity of tablet 00:00: mouth [place] (two) Medical times Branch daily. lamoTRIgine 2022-0 Yes [id number] 300mg Take 2 [facility] 150 mg 5-26 tablets by ity of tablet 00:00: mouth [place] (two) Medical times Branch daily. levETIRAcet 2022-0 Yes [id number] 1500mg Take 2 [facility] am 750 mg 5-26 tablets by ity of tablet 00:00: mouth [place] (two) Medical times Branch daily. zonisamide 2022-0 Yes [id number] 300mg Take 3 [facility] 100 mg 5-26 capsules ity of capsule 00:00: by mouth [place] [address] every 12 Medical (twelve) Branch hours. zonisamide 2022-0 Yes [id number] 50mg Take 1 [facility] 50 mg 5-26 capsule by ity of capsule 00:00: mouth at [place] [address] bedtime. Medical Branch lamoTRIgine 2022-0 Yes [id number] 25mg Take 1 [facility] 25 mg 5-26 tablet by ity of tablet 00:00: mouth [place] (two) Medical times Branch daily. lamoTRIgine 2022-0 Yes [id number] 300mg Take 2 [facility] 150 mg 5-26 tablets by ity of tablet 00:00: mouth [place] (two) Medical times Branch daily. levETIRAcet 2022-0 Yes [id number] 1500mg Take 2 [facility] am 750 mg 5-26 tablets by ity of tablet 00:00: mouth [place] (two) Medical times Branch daily. zonisamide 2022-0 Yes [id number] 300mg Take 3 [facility] 100 mg 5-26 capsules ity of capsule 00:00: by mouth [place] 00 every 12 Medical (twelve) Branch hours. zonisamide 2022-0 Yes [id number] 50mg Take 1 [facility] 50 mg 5-26 capsule by ity of capsule 00:00: mouth at [place] [address] bedtime. Medical Branch lamoTRIgine 2-0 Yes [id number] 25mg Take 1 [facility] 25 mg 5-26 tablet by ity of tablet 00:00: mouth [place] (two) Medical times Branch daily. lamoTRIgine 2022-0 Yes [id number] 300mg Take 2 [facility] 150 mg 5-26 tablets by ity of tablet 00:00: mouth [place] (two) Medical times Branch daily. levETIRAcet 2022-0 Yes [id number] 1500mg Take 2 [facility] am 750 mg 5-26 tablets by ity of tablet 00:00: mouth [place] (two) Medical times Branch daily. zonisamide 2022-0 Yes [id number] 300mg Take 3 [facility] 100 mg 5-26 capsules ity of capsule 00:00: by mouth [place] [address] every 12 Medical (twelve) Branch hours. zonisamide 2-0 Yes [id number] 50mg Take 1 [facility] 50 mg 5-26 capsule by ity of capsule 00:00: mouth at [place] [address] bedtime. Medical Branch lamoTRIgine 2022-0 Yes [id number] 25mg Take 1 [facility] 25 mg 5-26 tablet by ity of tablet 00:00: mouth [place] (two) Medical times Branch daily. lamoTRIgine 2022-0 Yes [id number] 300mg Take 2 [facility] 150 mg 5-26 tablets by ity of tablet 00:00: mouth [place] (two) Medical times Branch daily. levETIRAcet 2022-0 Yes [id number] 1500mg Take 2 [facility] am 750 mg 5-26 tablets by ity of tablet 00:00: mouth [place] (two) Medical times Branch daily. zonisamide 2022-0 Yes [id number] 300mg Take 3 [facility] 100 mg 5-26 capsules ity of capsule 00:00: by mouth [place] 00 every 12 Medical (twelve) Branch hours. zonisamide 2-0 Yes [id number] 50mg Take 1 [facility] 50 mg 5-26 capsule by ity of capsule 00:00: mouth at [place] 00 bedtime. Medical Branch lamoTRIgine 2-0 Yes [id number] 25mg Take 1 [facility] 25 mg 5-26 tablet by ity of tablet 00:00: mouth 2 [place] 00 (two) Medical times Branch daily. lamoTRIgine 2021-0 Yes [id number] 300mg Take 2 [facility] 150 mg 5-26 tablets by ity of tablet 00:00: mouth 2 [place] (two) Medical times Branch daily. levETIRAcet 2021-0 Yes [id number] 1500mg Take 2 [facility] am 750 mg 5-26 tablets by ity of tablet 00:00: mouth 2 [place] 00 (two) Medical times Branch daily. zonisamide 2021-0 Yes [id number] 300mg Take 3 [facility] 100 mg 5-26 capsules ity of capsule 00:00: by mouth [place] 00 every 12 Medical (twelve) Branch hours. zonisamide 2021-0 Yes [id number] 50mg Take 1 [facility] 50 mg 5-26 capsule by ity of capsule 00:00: mouth at [place] 00 bedtime. Medical Branch lamoTRIgine 2021-0 Yes [id number] 25mg Take 1 [facility] 25 mg 5-26 tablet by ity of tablet 00:00: mouth 2 [place] 00 (two) Medical times Branch daily. zonisamide 2021-0 2022- No [id number] 50mg Take 1 [facility] 50 mg 5-26 02-06 capsule by ity of capsule 00:00: 00:00 mouth at [place] 00 :00 bedtime. Medical Branch lamoTRIgine 2021-0 3- No [id number] 25mg Take 1 [facility] 25 mg 5-26 02-06 tablet by ity of tablet 00:00: 00:00 mouth 2 [place] 00 :00 (two) Medical times Branch daily. lamoTRIgine 2-0 3- No [id number] 300mg Take 2 [facility] 150 mg 5-26 02-06 tablets by ity of tablet 00:00: 00:00 mouth 2 [place] 00 :00 (two) Medical times Branch daily. levETIRAcet 2021-2022- No [id number] 1500mg Take 2 [facility] am 750 mg 5-26 02-06 tablets by ity of tablet 00:00: 00:00 mouth 2 [place] 00 :00 (two) Medical times Branch daily. zonisamide 2021-2022- No [id number] 300mg Take 3 [facility] 100 mg 5-26 02-06 capsules ity of capsule 00:00: 00:00 by mouth [place] 00 :00 every 12 Medical (twelve) Branch hours. zonisamide 2021-2022- No [id number] 50mg Take 1 [facility] 50 mg 5-26 02-06 capsule by ity of capsule 00:00: 00:00 mouth at [place] 00 :00 bedtime. Medical Branch lamoTRIgine 2022- No [id number] 25mg Take 1 [facility] 25 mg 5-26 02-06 tablet by ity of tablet 00:00: 00:00 mouth 2 [place] 00 :00 (two) Medical times Branch daily. lamoTRIgine 2021-2022- No [id number] 300mg Take 2 [facility] 150 mg 5-26 02-06 tablets by ity of tablet 00:00: 00:00 mouth 2 [place] 00 :00 (two) Medical times Branch daily. levETIRAcet 2021-2022- No [id number] 1500mg Take 2 [facility] am 750 mg 5-26 02-06 tablets by ity of tablet 00:00: 00:00 mouth 2 [place] 00 :00 (two) Medical times Branch daily. zonisamide 2021-2022- No [id number] 300mg Take 3 [facility] 100 mg 5-26 02-06 capsules ity of capsule 00:00: 00:00 by mouth [place] 00 :00 every 12 Medical (twelve) Branch hours. potassium 2021- Yes [id number] 10meq Take 1 [facility] chloride 10 3-25 tablet by ity of mEq CR 00:00: mouth [place] tablet 00 daily. Medical Branch potassium 2021-0 Yes [id number] 10meq Take 1 [facility] chloride 10 3-25 tablet by ity of mEq CR 00:00: mouth [place] tablet 00 daily. Medical Branch potassium 2021-0 Yes [id number] 10meq Take 1 [facility] chloride 10 3-25 tablet by ity of mEq CR 00:00: mouth [place] tablet 00 daily. Medical Branch potassium Yes [id number] 10meq Take 1 [facility] n[facility] chloride 10 3-25 tablet by ity of mEq CR 00:00: mouth [place] tablet 00 daily. Medical Branch potassium Yes [id number] 10meq Take 1 [facility] n[facility] chloride 10 3-25 tablet by ity of mEq CR 00:00: mouth [place] tablet 00 daily. Medical Branch potassium Yes [id number] 10meq Take 1 [facility] chloride 10 3-25 tablet by ity of mEq CR 00:00: mouth [place] tablet 00 daily. Medical Branch potassium Yes [id number] 10meq Take 1 [facility] chloride 10 3-25 tablet by ity of mEq CR 00:00: mouth [place] tablet 00 daily. Medical Branch potassium Yes [id number] 10meq Take 1 [facility] n[facility] chloride 10 3-25 tablet by ity of mEq CR 00:00: mouth [place] tablet 00 daily. Medical Branch potassium Yes [id number] 10meq Take 1 [facility] chloride 10 3-25 tablet by ity of mEq CR 00:00: mouth [place] tablet 00 daily. Medical Branch potassium Yes [id number] 10meq Take 1 [facility] n[facility] chloride 10 3-25 tablet by ity of mEq CR 00:00: mouth [place] tablet 00 daily. Medical Branch potassium Yes [id number] 10meq Take 1 [facility] chloride 10 3-25 tablet by ity of mEq CR 00:00: mouth [place] tablet 00 daily. Medical Branch potassium Yes [id number] 10meq Take 1 [facility] chloride 10 3-25 tablet by ity of mEq CR 00:00: mouth [place] tablet 00 daily. Medical Branch potassium Yes [id number] 10meq Take 1 [facility] n[facility] chloride 10 3-25 tablet by ity of mEq CR 00:00: mouth [place] tablet 00 daily. Medical Branch potassium Yes [id number] 10meq Take 1 [facility] n[facility] chloride 10 3-25 tablet by ity of mEq CR 00:00: mouth [place] tablet 00 daily. Medical Branch potassium Yes [id number] 10meq Take 1 U nivers chloride 10 3-25 tablet by ity of mEq CR 00:00: mouth [place] tablet 00 daily. Medical [place] potassium Yes [id number] 10meq Take 1 U nivers chloride 10 3-25 tablet by ity of mEq CR 00:00: mouth [place] tablet 00 daily. [facility] potassium Yes [id number] 10meq Take 1 U nivers chloride 10 3-25 tablet by ity of mEq CR 00:00: mouth [place] tablet 00 daily. [facility] potassium Yes [id number] 10meq Take 1 U nivers chloride 10 3-25 tablet by ity of mEq CR 00:00: mouth [place] tablet 00 daily. [facility] potassium Yes [id number] 10meq Take 1 U nivers chloride 10 3-25 tablet by ity of mEq CR 00:00: mouth [place] tablet 00 daily. [facility] potassium 2022- No [id number] 10meq Take 1 [facility] chloride 10 3-25 06-06 tablet by it y of mEq CR 00:00: 00:00 mouth [place] tablet 00 :00 daily. Medical Branch PRAVASTATIN Yes [id number] TAKE ONE [facility] 10 mg 3-24 (1) TABLET ity of tablet 00:00: BY MOUTH [place] 00 AT Medical BEDTIME. Branch PRAVASTATIN 2021- No [id number] TAKE ONE [facility] 10 mg 3-24 09-19 (1) TABLET ity of tablet 00:00: 00:00 BY MOUTH [place] 00 :00 AT Medical BEDTIME. Branch midazolam Yes [id number] 1{spray Use 1 [facility] (NAYZILAM) 1-27 } [place] in 1 ity of 5 mg/spray 00:00: nostril [place] (0.1 mL) 00 SEE-INSTRU Medic al [place] CTIONS. 1 Branch spray in ONE nostril for seizure lasting more than 3 minutes or for seizure cluster; may repeat dose in 10 minutes in other nostril if needed (do not repeat if the patient is having trouble breathing or excessive sedation). Do not exceed 2 sprays for single episode. Do not use for more than one episode in a 3-day span in more than 5 episodes in a month. midazolam Yes [id number] 1{spray Use 1 [facility] (NAYZILAM) 1-27 } [place] in 1 ity of 5 mg/spray 00:00: nostril [place] (0.1 mL) 00 SEE-INSTRU Medic al [place] CTIONS. 1 Branch spray in ONE nostril for seizure lasting more than 3 minutes or for seizure cluster; may repeat dose in 10 minutes in other nostril if needed (do not repeat if the patient is having trouble breathing or excessive sedation). Do not exceed 2 sprays for single episode. Do not use for more than one episode in a 3-day span in more than 5 episodes in a month. midazolam Yes [id number] 1{spray Use 1 [facility] (NAYZILAM) 1-27 } [place] in 1 ity of 5 mg/spray 00:00: nostril [place] (0.1 mL) 00 SEE-INSTRU Medic al [place] CTIONS. 1 Branch spray in ONE nostril for seizure lasting more than 3 minutes or for seizure cluster; may repeat dose in 10 minutes in other nostril if needed (do not repeat if the patient is having trouble breathing or excessive sedation). Do not exceed 2 sprays for single episode. Do not use for more than one episode in a 3-day span in more than 5 episodes in a month. midazolam Yes [id number] 1{spray Use 1 [facility] (NAYZILAM) 1-27 } [place] in 1 ity of 5 mg/spray 00:00: nostril [place] (0.1 mL) 00 SEE-INSTRU Medic al [place] CTIONS. 1 Branch spray in ONE nostril for seizure lasting more than 3 minutes or for seizure cluster; may repeat dose in 10 minutes in other nostril if needed (do not repeat if the patient is having trouble breathing or excessive sedation). Do not exceed 2 sprays for single episode. Do not use for more than one episode in a 3-day span in more than 5 episodes in a month. midazolam Yes [id number] 1{spray Use 1 [facility] (NAYZILAM) 1-27 } [place] in 1 ity of 5 mg/spray 00:00: nostril [place] (0.1 mL) 00 SEE-INSTRU Medic al [place] CTIONS. 1 Branch spray in ONE nostril for seizure lasting more than 3 minutes or for seizure cluster; may repeat dose in 10 minutes in other nostril if needed (do not repeat if the patient is having trouble breathing or excessive sedation). Do not exceed 2 sprays for single episode. Do not use for more than one episode in a 3-day span in more than 5 episodes in a month. midazolam Yes [id number] 1{spray Use 1 [facility] (NAYZILAM) 1-27 } [place] in 1 ity of 5 mg/spray 00:00: nostril [place] (0.1 mL) 00 SEE-INSTRU Medic al [place] CTIONS. 1 Branch spray in ONE nostril for seizure lasting more than 3 minutes or for seizure cluster; may repeat dose in 10 minutes in other nostril if needed (do not repeat if the patient is having trouble breathing or excessive sedation). Do not exceed 2 sprays for single episode. Do not use for more than one episode in a 3-day span in more than 5 episodes in a month. midazolam Yes [id number] 1{spray Use 1 [facility] (NAYZILAM) 1-27 } [place] in 1 ity of 5 mg/spray 00:00: nostril [place] (0.1 mL) 00 SEE-INSTRU Medic al [place] CTIONS. 1 Branch spray in ONE nostril for seizure lasting more than 3 minutes or for seizure cluster; may repeat dose in 10 minutes in other nostril if needed (do not repeat if the patient is having trouble breathing or excessive sedation). Do not exceed 2 sprays for single episode. Do not use for more than one episode in a 3-day span in more than 5 episodes in a month. midazolam Yes [id number] 1{spray Use 1 [facility] (NAYZILAM) 1-27 } [place] in 1 ity of 5 mg/spray 00:00: nostril [place] (0.1 mL) 00 SEE-INSTRU Medic al [place] CTIONS. 1 Branch spray in ONE nostril for seizure lasting more than 3 minutes or for seizure cluster; may repeat dose in 10 minutes in other nostril if needed (do not repeat if the patient is having trouble breathing or excessive sedation). Do not exceed 2 sprays for single episode. Do not use for more than one episode in a 3-day span in more than 5 episodes in a month. midazolam 2022- No [id number] 1{spray Use 1 [facility] (NAYZILAM) 03-15 } [place] in 1 it y of 5 mg/spray 00:00: 00:00 nostril [place] (0.1 mL) 00 :00 SEE-INSTRU Medic al [place] CTIONS. 1 Branch spray in ONE nostril for seizure lasting more than 3 minutes or for seizure cluster; may repeat dose in 10 minutes in other nostril if needed (do not repeat if the patient is having trouble breathing or excessive sedation). Do not exceed 2 sprays for single episode. Do not use for more than one episode in a 3-day span in more than 5 episodes in a month. midazolam 2022- No [id number] 1{spray Use 1 [facility] (NAYZILAM) 03-15 } [place] in 1 it y of 5 mg/spray 00:00: 00:00 nostril [place] (0.1 mL) 00 :00 SEE-INSTRU Medic al [place] CTIONS. 1 Branch spray in ONE nostril for seizure lasting more than 3 minutes or for seizure cluster; may repeat dose in 10 minutes in other nostril if needed (do not repeat if the patient is having trouble breathing or excessive sedation). Do not exceed 2 sprays for single episode. Do not use for more than one episode in a 3-day span in more than 5 episodes in a month. lamoTRIgine 2021- No [id number] 300mg Take 2 [facility] 150 mg 03-15-26 tablets by ity of tablet 00:00: 00:00 mouth 2 [place] 00 :00 (two) Medical times Branch daily. zonisamide 2021- No [id number] 300mg Take 3 [facility] 100 mg 03-15 05-26 capsules ity of capsule 00:00: 00:00 by mouth [place] 00 :00 every 12 Medical (twelve) Branch hours. zonisamide 2021- No [id number] 50mg Take 1 [facility] 50 mg 03-15-26 capsule by ity of capsule 00:00: 00:00 mouth at [place] 00 :00 bedtime. Medical Branch levETIRAcet 2021- No [id number] 1500mg Take 2 [facility] am 750 mg 27 05-26 tablets by ity of tablet 00:00: 00:00 mouth 2 [place] 00 :00 (two) Medical times [place] daily. telmisartan 2020-02 Yes 20mg Take 20 mg [facility] 40 mg 2-31 by mouth ity of tablet 00:00: daily. [place] [facility] Branch telmisartan 2020-02 Yes 20mg Take 20 mg [facility] 40 mg 2-31 by mouth ity of tablet 00:00: daily. [place] [facility] Branch telmisartan 2020-02 Yes 20mg Take 20 mg [facility] 40 mg 2-31 by mouth ity of tablet 00:00: daily. [place] [facility] Branch telmisartan 2020-02 Yes 20mg Take 20 mg [facility] 40 mg 2-31 by mouth ity of tablet 00:00: daily. [place] [facility] Branch telmisartan 2020-02 Yes 20mg Take 20 mg [facility] 40 mg 2-31 by mouth ity of tablet 00:00: daily. [place] [facility] Branch telmisartan 2020-02 Yes 20mg Take 20 mg [facility] 40 mg 2-31 by mouth ity of tablet 00:00: daily. [place] [facility] Branch telmisartan 2020-02 Yes 20mg Take 20 mg [facility] 40 mg 2-31 by mouth ity of tablet 00:00: daily. [place] [facility] Branch telmisartan 2020-02 Yes 20mg Take 20 mg [facility] 40 mg 2-31 by mouth ity of tablet 00:00: daily. [place] [facility] telmisartan 2020-02 Yes 20mg Take 20 mg [facility] 40 mg 2-31 by mouth ity of tablet 00:00: daily. [place] [facility] Branch telmisartan 2020-02 Yes 20mg Take 20 mg [facility] 40 mg 2-31 by mouth ity of tablet 00:00: daily. [place] [facility] Branch telmisartan 2020-02 Yes 20mg Take 20 mg [facility] 40 mg 2-31 by mouth ity of tablet 00:00: daily. [place] [facility] Branch telmisartan 2020-02 Yes 20mg Take 20 mg [facility] 40 mg 2-31 by mouth ity of tablet 00:00: daily. [place] [facility] Branch telmisartan 2020-02 Yes 20mg Take 20 mg [facility] 40 mg 2-31 by mouth ity of tablet 00:00: daily. [place] Medical Branch telmisartan 2020-02 Yes 20mg Take 20 mg [facility] 40 mg 2-31 by mouth ity of tablet 00:00: daily. [place] Medical Branch telmisartan 2020-02 Yes 20mg Take 20 mg [facility] 40 mg 2-31 by mouth ity of tablet 00:00: daily. [place] Medical Branch telmisartan 2020-02 Yes 20mg Take 20 mg [facility] 40 mg 2-31 by mouth ity of tablet 00:00: daily. [place] Medical Branch telmisartan 2020-02- No 20mg Take 20 mg [facility] 40 mg 2-31 05-09 by mouth ity of tablet 00:00: 00:00 daily. [place] 00 : Medical Branch telmisartan 2020-02- No 20mg Take 20 mg [facility] 40 mg 2-31 05-09 by mouth ity of tablet 00:00: 00:00 daily. [place] 00 :00 [facility] Branch SERTraline 2020-02 Yes 50mg Take 50 mg U nivers 50 mg 2-26 by mouth ity of tablet 14:13: at [place] 15 bedtime. Medical Branch SERTraline 2020-02 Yes 50mg Take 50 mg U nivers 50 mg 2-26 by mouth ity of tablet 14:13: at [place] 15 bedtime. Medical Branch Sertraline No Notes: [facility] 7-10 (Same as: l 14:00: Zoloft) Sertraline No Notes: [facility] 7-10 (Same as: l 14:00: Zoloft) Sertraline No Notes: [facility] 7-10 (Same as: l 14:00: Zoloft) Sertraline No Notes: [facility] 7-10 (Same as: l 14:00: Zoloft) Sertraline No Notes: [facility] 7-10 (Same as: l 14:00: Zoloft) Sertraline No Notes: [facility] 7-10 (Same as: l 14:00: Zoloft) Potassium 2017-0 No Notes: Memori a Chloride 7-10 (Same as: l 1.33 MEQ/ML 12:48: Potassium [place] Oral 00 Chloride) Solution Potassium 0 No Notes: [facility] a Chloride 7-10 (Same as: l 1.33 MEQ/ML 12:48: Potassium [place] Oral 00 Chloride) Solution Potassium 0 No Notes: [facility] a Chloride 7-10 (Same as: l 1.33 MEQ/ML 12:48: Potassium [place] Oral 00 Chloride) Solution Potassium No Notes: [facility] a Chloride 7-10 (Same as: l 1.33 MEQ/ML 12:48: Potassium [place] Oral 00 Chloride) Solution Potassium 0 No Notes: [facility] a Chloride 7-10 (Same as: l 1.33 MEQ/ML 12:48: Potassium [place] Oral 00 Chloride) Solution Potassium 2017 No Notes: [facility] a Chloride 7-10 (Same as: l 1.33 MEQ/ML 12:48: Potassium [place] Oral 00 Chloride) Solution Sodium 2017-0 No 500 mL, [facility] Chloride 7-09 500 ml/hr, l 0.154 23:28: Infuse [place] MEQ/ML 00 Over: 1 Injectable hr, Route: Solution IV, 500, Drug form: INJ, ONCE, Priority: STAT, Dosing Weight 71.8 kg, Start date: 08/25/16 18:28:00 CDT, Duration: 1 doses or times, Stop date: 08/25/16 18:28:00 CDT Sodium 2017-0 No 500 mL, [facility] Chloride 7-09 500 ml/hr, l 0.154 23:28: Infuse [place] MEQ/ML 00 Over: 1 Injectable hr, Route: Solution IV, 500, Drug form: INJ, ONCE, Priority: STAT, Dosing Weight 71.8 kg, Start date: 08/25/16 18:28:00 CDT, Duration: 1 doses or times, Stop date: 08/25/16 18:28:00 CDT Sodium 2017-0 No 500 mL, [facility] Chloride 7-09 500 ml/hr, l 0.154 23:28: Infuse [place] MEQ/ML 00 Over: 1 Injectable hr, Route: Solution IV, 500, Drug form: INJ, ONCE, Priority: STAT, Dosing Weight 71.8 kg, Start date: 08/25/16 18:28:00 CDT, Duration: 1 doses or times, Stop date: 08/25/16 18:28:00 CDT Sodium 2017-0 No 500 mL, [place] Chloride 7-09 500 ml/hr, l 0.154 23:28: Infuse [place] MEQ/ML 00 Over: 1 Injectable hr, Route: Solution IV, 500, Drug form: INJ, ONCE, Priority: STAT, Dosing Weight 71.8 kg, Start date: 08/25/16 18:28:00 CDT, Duration: 1 doses or times, Stop date: 08/25/16 18:28:00 CDT Sodium 2017-0 No 500 mL, [facility] Chloride 7-09 500 ml/hr, l 0.154 23:28: Infuse [place] MEQ/ML 00 Over: 1 Injectable hr, Route: Solution IV, 500, Drug form: INJ, ONCE, Priority: STAT, Dosing Weight 71.8 kg, Start date: 08/25/16 18:28:00 CDT, Duration: 1 doses or times, Stop date: 08/25/16 18:28:00 CDT Sodium 2017-0 No 500 mL, Memoria Chloride 7-09 500 ml/hr, l 0.154 23:28: Infuse [place] MEQ/ML 00 Over: 1 Injectable hr, Route: Solution IV, 500, Drug form: INJ, ONCE, Priority: STAT, Dosing Weight 71.8 kg, Start date: 08/25/16 18:28:00 CDT, Duration: 1 doses or times, Stop date: 08/25/16 18:28:00 CDT zonisamide 2017- Yes 300 mg = 3 M emoria 100 mg oral 7-09 cap, PO, l capsule 18:54: Q12H, # [place] 00 180 cap, 3 Refill(s), Pharmacy: [facility] lamotrigine 0 Yes 300 mg = 3 Memoria 100 MG Oral 7-09 tab, PO, l Tablet 18:54: BID, # 180 Vanessa nn 00 tab, 3 Refill(s), Pharmacy: [facility] perampanel Yes 2 mg = 1 Mem oria 2 mg oral 7-09 tab, PO, l tablet 18:54: Bedtime, # Vanessa nn 00 30 tab, 3 Refill(s) zonisamide 2016- Yes 300 mg = 3 M emoria 100 mg oral 7-09 cap, PO, l capsule 18:54: Q12H, # [place] 00 180 cap, 3 Refill(s), Pharmacy: [facility] lamotrigine Yes 300 mg = 3 Memoria 100 MG Oral 7-09 tab, PO, l Tablet 18:54: BID, # 180 Vanessa nn 00 tab, 3 Refill(s), Pharmacy: [facility] Yes 2 mg = 1 Mem oria 2 mg oral 7-09 tab, PO, l tablet 18:54: Bedtime, # [place] nn 00 30 tab, 3 Refill(s) zonisamide Yes 300 mg = 3 M emoria 100 mg oral 7-09 cap, PO, l capsule 18:54: Q12H, # [place] 00 180 cap, 3 Refill(s), Pharmacy: [facility] lamotrigine Yes 300 mg = 3 Memoria 100 MG Oral 7-09 tab, PO, l Tablet 18:54: BID, # 180 Vanessa nn 00 tab, 3 Refill(s), Pharmacy: [facility] Yes 2 mg = 1 Mem oria 2 mg oral 7-09 tab, PO, l tablet 18:54: Bedtime, # [place] nn 00 30 tab, 3 Refill(s) zonisamide Yes 300 mg = 3 M emoria 100 mg oral 7-09 cap, PO, l capsule 18:54: Q12H, # [place] 00 180 cap, 3 Refill(s), Pharmacy: [facility] lamotrigine Yes 300 mg = 3 Memoria 100 MG Oral 7-09 tab, PO, l Tablet 18:54: BID, # 180 Vanessa nn 00 tab, 3 Refill(s), Pharmacy: [facility] Yes 2 mg = 1 Mem oria 2 mg oral 7-09 tab, PO, l tablet 18:54: Bedtime, # Vanessa nn 00 30 tab, 3 Refill(s) zonisamide Yes 300 mg = 3 M emoria 100 mg oral 7-09 cap, PO, l capsule 18:54: Q12H, # [place] 00 180 cap, 3 Refill(s), Pharmacy: [facility] lamotrigine Yes 300 mg = 3 Memoria 100 MG Oral 7-09 tab, PO, l Tablet 18:54: BID, # 180 Vanessa nn 00 tab, 3 Refill(s), Pharmacy: [facility] Yes 2 mg = 1 Mem oria 2 mg oral 7-09 tab, PO, l tablet 18:54: Bedtime, # Vanessa nn 00 30 tab, 3 Refill(s) zonisamide Yes 300 mg = 3 M emoria 100 mg oral 7-09 cap, PO, l capsule 18:54: Q12H, # [place] 00 180 cap, 3 Refill(s), Pharmacy: [facility] lamotrigine Yes 300 mg = 3 Memoria 100 MG Oral 7-09 tab, PO, l Tablet 18:54: BID, # 180 Vanessa nn 00 tab, 3 Refill(s), Pharmacy: [facility] Yes 2 mg = 1 Mem oria 2 mg oral 7-09 tab, PO, l tablet 18:54: Bedtime, # Vanessa nn 00 30 tab, 3 Refill(s) sennosides, No Notes: [facility] 08-25 (Same as: l 14:00: Senokot) [place] Docusate No Notes: Memoria 08-25 (Same as: l 14:00: Colace) [place] (Do Not Crush) sennosides, No Notes: [facility] 08-25 (Same as: l 14:00: Senokot) [place] Docusate No Notes: Memoria 08-25 (Same as: l 14:00: Colace) [place] (Do Not Crush) sennosides, No Notes: [facility] 08-25 (Same as: l 14:00: Senokot) [place] 00 Docusate No Notes: Memoria 08-25 (Same as: l 14:00: Colace) [place] 00 (Do Not Crush) sennosides, No Notes: [facility] 7-09 (Same as: l 14:00: Senokot) [place] 00 Docusate No Notes: Memoria 7- (Same as: l 14:00: Colace) [place] 00 (Do Not Crush) sennosides, No Notes: [facility] 7-09 (Same as: l 14:00: Senokot) [place] 00 Docusate No Notes: Memoria 7-09 (Same as: l 14:00: Colace) [place] 00 (Do Not Crush) sennosides, No Notes: [facility] 7-09 (Same as: l 14:00: Senokot) [place] 00 Docusate No Notes: Memoria 7- (Same as: l 14:00: Colace) [place] 00 (Do Not Crush) perampanel No Notes: Memor ia 7- (Same as: l 02:00: Fycompa) [place] 00 Non-formul carlie Fycompa No Fycompa, 2 [facility] 7-09 mg, Route: l 02:00: PO, [place] 00 Bedtime, 08/24/16 21:00:00 CDT, Duration: 30 day, Stop date: 09/22/16 21:00:00 [facility]: [facility]or ia 7- (Same as: l 02:00: Fycompa) [place] 00 Non-formul carlie Fycompa No Fycompa, 2 [facility] 7-09 mg, Route: l 02:00: PO, [place] 00 Bedtime, 08/24/16 21:00:00 CDT, Duration: 30 day, Stop date: 09/22/16 21:00:00 CDT perampanel No Notes: Memor ia 7- (Same as: l 02:00: Fycompa) [place] 00 Non-formul carlie Fycompa No Fycompa, 2 [facility] 7-09 mg, Route: l 02:00: PO, [place] 00 Bedtime, 08/24/16 21:00:00 CDT, Duration: 30 day, Stop date: 09/22/16 21:00:00 CDT perampanel 0 No Notes: Memor ia 7-09 (Same as: l 02:00: Fycompa) [place] 00 Non-formul carlie Fycompa 0 No Fycompa, 2 [facility] 7-09 mg, Route: l 02:00: PO, [place] 00 Bedtime, 08/24/16 21:00:00 CDT, Duration: 30 day, Stop date: 09/22/16 21:00:00 CDT perampanel 0 No Notes: Memor ia 7-09 (Same as: l 02:00: Fycompa) [place] 00 Non-formul carlie Fycompa 0 No Fycompa, 2 [facility] 7-09 mg, Route: l 02:00: PO, [place] 00 Bedtime, 08/24/16 21:00:00 CDT, Duration: 30 day, Stop date: 09/22/16 21:00:00 CDT perampanel 0 No Notes: Memor ia 7-09 (Same as: l 02:00: Fycompa) [place] 00 Non-formul carlie Fycompa 0 No Fycompa, 2 [facility] 7-09 mg, Route: l 02:00: PO, [place] 00 Bedtime, 08/24/16 21:00:00 CDT, Duration: 30 day, Stop date: 09/22/16 21:00:00 CDT Tylenol 0 No Notes: Do Memor ia 7-09 not exceed l 01:12: 4 gm/day. (Same as: Tylenol) Tylenol No Notes: Do Memor ia 7-09 not exceed l 01:12: 4 gm/day. [place] 00 (Same as: Tylenol) Tylenol 0 No Notes: Do Memor ia 7-09 not exceed l 01:12: 4 gm/day. [place] 00 (Same as: Tylenol) Tylenol No Notes: Do Memor ia 7-09 not exceed l 01:12: 4 gm/day. [place] 00 (Same as: Tylenol) Tylenol 2017-0 No Notes: Do Memor ia 08-25 not exceed l 01:12: 4 gm/day. [place] (Same as: Tylenol) Tylenol 2017-0 No Notes: Do Memor ia 08-25 not exceed l 01:12: 4 gm/day. [place] (Same as: Tylenol) Phenytoin 2017-0 No 50 mg, Memori a 7-08 Route: PO, l 22:00: BID, [place] Dosing Weight 71.8, kg, Start date: 08/24/16 17:00:00 CDT, Duration: 30 day, Stop date: 09/23/16 9:00:00 CDT Phenytoin 2017-0 No 50 mg, Memori a 7-08 Route: PO, l 22:00: BID, [place] 00 Dosing Weight 71.8, kg, Start date: 08/24/16 17:00:00 CDT, Duration: 30 day, Stop date: 09/23/16 9:00:00 CDT Phenytoin 2017-0 No 50 mg, Memori a 7-08 Route: PO, l 22:00: BID, [place] 00 Dosing Weight 71.8, kg, Start date: 08/24/16 17:00:00 CDT, Duration: 30 day, Stop date: 09/23/16 9:00:00 CDT Phenytoin 2017-0 No 50 mg, Memori a 7-08 Route: PO, l 22:00: BID, [place] 00 Dosing Weight 71.8, kg, Start date: 08/24/16 17:00:00 CDT, Duration: 30 day, Stop date: 09/23/16 9:00:00 CDT Phenytoin 2017-0 No 50 mg, Memori a 7-08 Route: PO, l 22:00: BID, [place] 00 Dosing Weight 71.8, kg, Start date: 08/24/16 17:00:00 CDT, Duration: 30 day, Stop date: 09/23/16 9:00:00 CDT Phenytoin 2017-0 No 50 mg, Memori a 7-08 Route: PO, l 22:00: BID, [place] 00 Dosing Weight 71.8, kg, Start date: 08/24/16 17:00:00 CDT, Duration: 30 day, Stop date: 09/23/16 9:00:00 CDT Phenytoin 2017-0 No 50 mg, Memori a - Route: PO, l 21:00: Drug form: [place] 00 CAP, Q8H, Dosing Weight 71.8, kg, Start date: 08/24/16 16:00:00 CDT, Duration: 30 day, Stop date: 09/23/16 8:00:00 CDT Phenytoin 2017-0 No 50 mg, Memori a 08-24 Route: PO, l 21:00: Drug form: [place] 00 CAP, Q8H, Dosing Weight 71.8, kg, Start date: 08/24/16 16:00:00 CDT, Duration: 30 day, Stop date: 09/23/16 8:00:00 CDT Phenytoin 2017-0 No 50 mg, Memori a 08-24 Route: PO, l 21:00: Drug form: [place] 00 CAP, Q8H, Dosing Weight 71.8, kg, Start date: 08/24/16 16:00:00 CDT, Duration: 30 day, Stop date: 09/23/16 8:00:00 CDT Phenytoin 2017-0 No 50 mg, Memori a 08-24 Route: PO, l 21:00: Drug form: [place] 00 CAP, Q8H, Dosing Weight 71.8, kg, Start date: 08/24/16 16:00:00 CDT, Duration: 30 day, Stop date: 09/23/16 8:00:00 CDT Phenytoin 2017-0 No 50 mg, Memori a 08-24 Route: PO, l 21:00: Drug form: [place] 00 CAP, Q8H, Dosing Weight 71.8, kg, Start date: 08/24/16 16:00:00 CDT, Duration: 30 day, Stop date: 09/23/16 8:00:00 CDT Phenytoin 2017-0 No 50 mg, Memori a 08-24 Route: PO, l 21:00: Drug form: [place] 00 CAP, Q8H, Dosing Weight 71.8, kg, Start date: 08/24/16 16:00:00 CDT, Duration: 30 day, Stop date: 09/23/16 8:00:00 CDT Phenytoin 2017-0 No Notes: Memori a 7-08 (Same as: l 15:00: Dilantin) Do not infuse greater than 50 mg/min. MEDICATION WASTE Product Size: 100 mg Product Wasted: ___ mg Phenytoin No Notes: Memori a 08-24 (Same as: l 15:00: Dilantin) Do not infuse greater than 50 mg/min. MEDICATION WASTE Product Size: 100 mg Product Wasted: ___ mg Phenytoin No Notes: Memori a 08-24 (Same as: l 15:00: Dilantin) Do not infuse greater than 50 mg/min. MEDICATION WASTE Product Size: 100 mg Product Wasted: ___ mg Phenytoin No Notes: Memori a 08-24 (Same as: l 15:00: Dilantin) Do not infuse greater than 50 mg/min. MEDICATION WASTE Product Size: 100 mg Product Wasted: ___ mg Phenytoin No Notes: Memori a 08-24 (Same as: l 15:00: Dilantin) Do not infuse greater than 50 mg/min. MEDICATION WASTE Product Size: 100 mg Product Wasted: ___ mg Phenytoin No Notes: Memori a 08-24 (Same as: l 15:00: Dilantin) Do not infuse greater than 50 mg/min. MEDICATION WASTE Product Size: 100 mg Product Wasted: ___ mg zonisamide No Notes: Memor ia 08-24 Contraindi l 14:00: cated in patients with hypersensi tivity to sulfonamid es. (Same As: Zonegran) lamotrigine No Notes: [facility] 08-24 (Same l 14:00: as:La[facility]ta [place] 00 l) zonisamide No Notes: Memor ia 08-24 Contraindi l 14:00: cated in patients with hypersensi tivity to sulfonamid es. (Same As: Zonegran) lamotrigine No Notes: [facility] 7-08 (Same l 14:00: as:LaMICta [place] 00 l) zonisamide No Notes: Memor ia 7-08 Contraindi l 14:00: cated in [place] 00 patients with hypersensi tivity to sulfonamid es. (Same As: [facility]) lamotrigine No Notes: [facility] 7-08 (Same l 14:00: as:La[facility]ta [place] 00 l) zonisamide No Notes: Memor ia 7-08 Contraindi l 14:00: cated in [place] 00 patients with hypersensi tivity to sulfonamid es. (Same As: [facility]) lamotrigine No Notes: [facility] 7-08 (Same l 14:00: as:LaMICta [place] 00 l) zonisamide No Notes: Memor ia 7-08 Contraindi l 14:00: cated in [place] 00 patients with hypersensi tivity to sulfonamid es. (Same As: [facility]) lamotrigine No Notes: [facility] 7-08 (Same l 14:00: as:LaMICta [place] 00 l) zonisamide No Notes: Memor ia 7-08 Contraindi l 14:00: cated in [place] 00 patients with hypersensi tivity to sulfonamid es. (Same As: [facility]) lamotrigine No Notes: [facility] 7-08 (Same l 14:00: as:LaMICta [place] 00 l) heparin No Notes: Memoria 7-08 porcine l 13:00: heparin [place] 00 heparin No Notes: Memoria 7-08 porcine l 13:00: heparin [place] 00 heparin No Notes: Memoria 7-08 porcine l 13:00: heparin [place] 00 heparin No Notes: Memoria 7-08 porcine l 13:00: heparin [place] 00 heparin No Notes: Memoria 7-08 porcine l 13:00: heparin [place] 00 heparin No Notes: Memoria 7-08 porcine l 13:00: heparin [place] 00 Calcium No Notes: Memoria Carbonate 7-08 (Same As: l 500 MG 10:58: Tums) [place] Chewable 00 Calcium Tablet Carbonate 500 mg = 200 mg elemental calcium Dose = mg calcium carbonate ( mg elemental calcium) potassium No Notes: Memori a phosphate + 08-24 (Same as: l sodium 10:58: K [place] chloride 00 Phosphate. 0.9% INJ ) 1 mMol 250 mL phoshate has 1.47 mEq potassium Infuse over 4 hours potassium No Notes: Memori a phosphate-s 08-24 (Same as: l odium 10:58: Phos-NaK) [place] phosphate 00 Each 1.5 250 mg-280 gm pkt has mg-160 mg 250mg oral powder phosphorou for s. Mix reconstitut w/2.5oz ion water and stir. Magnesium No Notes: Memori a Sulfate 08-24 WASTE: F/P l 10:58: - Sink; E [place] 00 - Municipal Trash Bin Magnesium No Notes: Memori a Oxide 08-24 (Same as: l 10:58: Mag-Ox [place] 00 400) Magnesium oxide 766dq=412n g elemental magnesium Dose=____m g magnesium oxide [...] 09/23/16 5:57:00 CDT, FOR ICU USE ONLY Calcium No Notes: Memoria Carbonate 08-24 (Same As: l 500 MG 10:58: Tums) [place] Chewable 00 Calcium Tablet Carbonate 500 mg = 200 mg elemental calcium Dose = mg calcium carbonate ( mg elemental calcium) potassium No Notes: Memori a phosphate + 7-08 (Same as: l sodium 10:58: K [place] chloride 00 Phosphate. 0.9% INJ ) 1 mMol 250 mL phoshate has 1.47 mEq potassium Infuse over 4 hours potassium No Notes: Memori a phosphate-s 08-24 (Same as: l odium 10:58: Phos-NaK) [place] phosphate 00 Each 1.5 250 mg-280 gm pkt has mg-160 mg 250mg oral powder phosphorou for s. Mix reconstitut w/2.5oz ion water and stir. Magnesium No Notes: Memori a Sulfate 08-24 WASTE: F/P l 10:58: - Sink; E [place] - [facility] Trash Bin Magnesium No Notes: Memori a Oxide 08-24 (Same as: l 10:58: Mag-Ox [place] 00 400) Magnesium oxide 282bm=029d g elemental magnesium Dose=____m g magnesium oxide (___mg elemental magnesium) Calcium No Notes: Memoria Gluconate 08-24 WASTE: F/P l 10:58: - Sink; E [place] - [employer] Trash Bin potassium No Notes: Memori a chloride 08-24 (Same as: l 10:58: Potassium [place] 00 Chloride) sodium No 15 mmol, 5 Memor ia phosphate + 7-08 mL, Route: l sodium 10:58: IVPB, PRN, [place] nn chloride 00 Dosing 0.9% INJ Weight 250 mL 71.8, kg, PRN Abnormal Lab Result, Start date: 08/24/16 5:58:00 CDT, Duration: 30 day, Stop date: 09/23/16 5:57:00 CDT, FOR ICU USE ONLY Calcium No Notes: Memoria Carbonate - (Same As: l 500 MG 10:58: Tums) [place] Chewable 00 Calcium Tablet Carbonate 500 mg = 200 mg elemental calcium Dose = mg calcium carbonate ( mg elemental calcium) potassium No Notes: Memori a phosphate + 7-08 (Same as: l sodium 10:58: K [place] chloride 00 Phosphate. 0.9% INJ ) 1 mMol 250 mL phoshate has 1.47 mEq potassium Infuse over 4 hours potassium No Notes: Memori a phosphate-s 08-24 (Same as: l odium 10:58: Phos-NaK) [place] phosphate 00 Each 1.5 250 mg-280 gm pkt has mg-160 mg 250mg oral powder phosphorou for s. Mix reconstitut w/2.5oz ion water and stir. Magnesium No Notes: Memori a Sulfate 08-24 WASTE: F/P l 10:58: - Sink; E [place] 00 - [employer] Trash Bin Magnesium No Notes: Memori a Oxide 08-24 (Same as: l 10:58: Mag-Ox [place] 400) Magnesium oxide 871jq=818a g elemental magnesium Dose=____m g magnesium oxide (___mg elemental magnesium) Calcium No Notes: Memoria Gluconate 08-24 WASTE: F/P l 10:58: - Sink; E [place] 00 - [facility] Trash Bin potassium No Notes: Memori a chloride 08-24 (Same as: l 10:58: Potassium [place] 00 Chloride) sodium No 15 mmol, 5 Memor ia phosphate + 7-08 mL, Route: l sodium 10:58: IVPB, PRN, [place] nn chloride 00 Dosing 0.9% INJ Weight 250 mL 71.8, kg, PRN Abnormal Lab Result, Start date: 08/24/16 5:58:00 CDT, Duration: 30 day, Stop date: 09/23/16 5:57:00 CDT, FOR ICU USE ONLY Calcium No Notes: [facility] Carbonate 08-24 (Same As: l 500 MG 10:58: Tums) [place] Chewable 00 Calcium Tablet Carbonate 500 mg = 200 mg elemental calcium Dose = mg calcium carbonate ( mg elemental calcium) potassium No Notes: Memori a phosphate + -08 (Same as: l sodium 10:58: K [place] chloride 00 Phosphate. 0.9% INJ ) 1 mMol 250 mL phoshate has 1.47 mEq potassium Infuse over 4 hours potassium No Notes: Memori a phosphate-s 08 (Same as: l odium 10:58: Phos-NaK) [place] phosphate 00 Each 1.5 250 mg-280 gm pkt has mg-160 mg 250mg oral powder phosphorou for s. Mix reconstitut w/2.5oz ion water and stir. Magnesium No Notes: Memori a Sulfate 08-24 WASTE: F/P l 10:58: - Sink; E [place] - [facility] Trash Bin Magnesium No Notes: Memori a Oxide 08-24 (Same as: l 10:58: Mag-Ox [place] 00 400) Magnesium oxide 107wg=426e g elemental magnesium Dose=____m g magnesium oxide [...] 09/23/16 5:57:00 CDT, FOR ICU USE ONLY Calcium No Notes: Memoria Carbonate 08-24 (Same As: l 500 MG 10:58: Tums) [place] Chewable 00 Calcium Tablet Carbonate 500 mg = 200 mg elemental calcium Dose = mg calcium carbonate ( mg elemental calcium) potassium No Notes: Memori a phosphate + -08 (Same as: l sodium 10:58: K [place] chloride 00 Phosphate. 0.9% INJ ) 1 mMol 250 mL phoshate has 1.47 mEq potassium Infuse over 4 hours potassium No Notes: Memori a phosphate-s 08-24 (Same as: l odium 10:58: Phos-NaK) [place] phosphate 00 Each 1.5 250 mg-280 gm pkt has mg-160 mg 250mg oral powder phosphorou for s. Mix reconstitut w/2.5oz ion water and stir. Magnesium No Notes: Memori a Sulfate 7-08 WASTE: F/P l 10:58: - Sink; E [place] - [facility] Trash Bin Magnesium No Notes: Memori a Oxide 08-24 (Same as: l 10:58: Mag-Ox [place] 00 400) Magnesium oxide 980kb=693d g elemental magnesium Dose=____m g magnesium oxide (___mg elemental magnesium) Calcium No Notes: Memoria Gluconate 08-24 WASTE: F/P l 10:58: - Sink; E [place] - [facility] Trash Bin potassium No Notes: Memori a chloride 08-24 (Same as: l 10:58: Potassium [place] Chloride) sodium No 15 mmol, 5 Memor ia phosphate + 7-08 mL, Route: l sodium 10:58: IVPB, PRN, [place] nn chloride 00 Dosing 0.9% INJ Weight 250 mL 71.8, kg, PRN Abnormal Lab Result, Start date: 08/24/16 5:58:00 CDT, Duration: 30 day, Stop date: 09/23/16 5:57:00 CDT, FOR ICU USE ONLY Calcium No Notes: [facility] Carbonate 08-24 (Same As: l 500 MG 10:58: Tums) [place] Chewable 00 Calcium Tablet Carbonate 500 mg = 200 mg elemental calcium Dose = mg calcium carbonate ( mg elemental calcium) potassium No Notes: Memori a phosphate + 7-08 (Same as: l sodium 10:58: K [place] chloride 00 Phosphate. 0.9% INJ ) 1 mMol 250 mL phoshate has 1.47 mEq potassium Infuse over 4 hours potassium No Notes: Memori a phosphate-s - (Same as: l odium 10:58: Phos-NaK) [place] phosphate 00 Each 1.5 250 mg-280 gm pkt has mg-160 mg 250mg oral powder phosphorou for s. Mix reconstitut w/2.5oz ion water and stir. Magnesium No Notes: Memori a Sulfate 08-24 WASTE: F/P l 10:58: - Sink; E [place] - [facility] Trash Bin Magnesium No Notes: Memori a Oxide 7-08 (Same as: l 10:58: Mag-Ox [place] 00 400) Magnesium oxide 567dl=732u g elemental magnesium Dose=____m g magnesium oxide (___mg elemental magnesium) Calcium No Notes: [facility] Gluconate 08-24 WASTE: F/P l 10:58: - Sink; E [place] 00 - [facility] Trash Bin potassium No Notes: Memori a chloride 08-24 (Same as: l 10:58: Potassium [place] 00 Chloride) sodium No 15 mmol, 5 Memor ia phosphate + -08 mL, Route: l sodium 10:58: IVPB, PRN, [place] nn chloride 00 Dosing 0.9% INJ Weight 250 mL 71.8, kg, PRN Abnormal Lab Result, Start date: 08/24/16 5:58:00 CDT, Duration: 30 day, Stop date: 09/23/16 5:57:00 CDT, FOR ICU USE ONLY sodium No 1,000 mL, Memori a chloride 08-24 Rate: 100 l 0.9% 1000 10:57: ml/hr, Jim n ml INJ 00 Infuse 1,000 mL over: 10 hr, Route: IV, Dosing Weight 71.8 kg, Total Volume: 1,000, Start date: 08/24/16 5:57:00 CDT, Duration: 30 day, Stop date: 09/23/16 5:56:00 CDT Sodium No 1,000 mL, Memori a Chloride 08-24 1,000 l 0.154 10:57: ml/hr, [place] MEQ/ML 00 Infuse Injectable Over: 1 Solution hr, Route: IV, 1,000, Drug form: INJ, ONCE, Priority: STAT, Dosing Weight 71.8 kg, Start date: 08/24/16 5:57:00 CDT, Duration: 1 doses or times, Stop date: 08/24/16 5:57:00 CDT sodium 2016- No 1,000 mL, Memori a chloride 08-24 Rate: 100 l 0.9% 1000 10:57: ml/hr, Jim n ml INJ 00 Infuse 1,000 mL over: 10 hr, Route: IV, Dosing Weight 71.8 kg, Total Volume: 1,000, Start date: 08/24/16 5:57:00 CDT, Duration: 30 day, Stop date: 09/23/16 5:56:00 CDT Sodium 2017-0 No 1,000 mL, Memori a Chloride 7-08 1,000 l 0.154 10:57: ml/hr, [place] MEQ/ML 00 Infuse Injectable Over: 1 Solution hr, Route: IV, 1,000, Drug form: INJ, ONCE, Priority: STAT, Dosing Weight 71.8 kg, Start date: 08/24/16 5:57:00 CDT, Duration: 1 doses or times, Stop date: 08/24/16 5:57:00 CDT sodium 2017-0 No 1,000 mL, Memori a chloride 7-08 Rate: 100 l 0.9% 1000 10:57: ml/hr, Jim n ml INJ 00 Infuse 1,000 mL over: 10 hr, Route: IV, Dosing Weight 71.8 kg, Total Volume: 1,000, Start date: 08/24/16 5:57:00 CDT, Duration: 30 day, Stop date: 09/23/16 5:56:00 CDT Sodium 2017-0 No 1,000 mL, Memori a Chloride 7-08 1,000 l 0.154 10:57: ml/hr, [place] MEQ/ML 00 Infuse Injectable Over: 1 Solution hr, Route: IV, 1,000, Drug form: INJ, ONCE, Priority: STAT, Dosing Weight 71.8 kg, Start date: 08/24/16 5:57:00 CDT, Duration: 1 doses or times, Stop date: 08/24/16 5:57:00 CDT sodium 2017-0 No 1,000 mL, Memori a chloride 7-08 Rate: 100 l 0.9% 1000 10:57: ml/hr, Jim n ml INJ 00 Infuse 1,000 mL over: 10 hr, Route: IV, Dosing Weight 71.8 kg, Total Volume: 1,000, Start date: 08/24/16 5:57:00 CDT, Duration: 30 day, Stop date: 09/23/16 5:56:00 CDT Sodium 2017-0 No 1,000 mL, Memori a Chloride 7-08 1,000 l 0.154 10:57: ml/hr, [place] MEQ/ML 00 Infuse Injectable Over: 1 Solution hr, Route: IV, 1,000, Drug form: INJ, ONCE, Priority: STAT, Dosing Weight 71.8 kg, Start date: 08/24/16 5:57:00 CDT, Duration: 1 doses or times, Stop date: 08/24/16 5:57:00 CDT sodium 2017-0 No 1,000 mL, Memori a chloride 7-08 Rate: 100 l 0.9% 1000 10:57: ml/hr, Jim n ml INJ 00 Infuse 1,000 mL over: 10 hr, Route: IV, Dosing Weight 71.8 kg, Total Volume: 1,000, Start date: 08/24/16 5:57:00 CDT, Duration: 30 day, Stop date: 09/23/16 5:56:00 CDT Sodium 2017-0 No 1,000 mL, Memori a Chloride 7-08 1,000 l 0.154 10:57: ml/hr, [place] MEQ/ML 00 Infuse Injectable Over: 1 Solution hr, Route: IV, 1,000, Drug form: INJ, ONCE, Priority: STAT, Dosing Weight 71.8 kg, Start date: 08/24/16 5:57:00 CDT, Duration: 1 doses or times, Stop date: 08/24/16 5:57:00 CDT sodium 2017-0 No 1,000 mL, Memori a chloride 7-08 Rate: 100 l 0.9% 1000 10:57: ml/hr, Jim n ml INJ 00 Infuse 1,000 mL over: 10 hr, Route: IV, Dosing Weight 71.8 kg, Total Volume: 1,000, Start date: 08/24/16 5:57:00 CDT, Duration: 30 day, Stop date: 09/23/16 5:56:00 CDT Sodium 2017-0 No 1,000 mL, Memori a Chloride 7-08 1,000 l 0.154 10:57: ml/hr, [place] MEQ/ML 00 Infuse Injectable Over: 1 Solution hr, Route: IV, 1,000, Drug form: INJ, ONCE, Priority: STAT, Dosing Weight 71.8 kg, Start date: 08/24/16 5:57:00 CDT, Duration: 1 doses or times, Stop date: 08/24/16 5:57:00 CDT Lorazepam No Notes: Memori a 7-08 (Same as: l 05:50: Ativan) Lorazepam No Notes: Memori a 7-08 (Same as: l 05:50: Ativan) Lorazepam No Notes: Memori a 7-08 (Same as: l 05:50: Ativan) Lorazepam No Notes: Memori a 7-08 (Same as: l 05:50: Ativan) Lorazepam No Notes: Memori a 7-08 (Same as: l 05:50: Ativan) Lorazepam No Notes: Memori a 7-08 (Same as: l 05:50: Ativan) Fentanyl No 1,000 Memoria 7-08 microgram, l 04:21: 20 mL, Rate: Titrate, Start Dose: 50 microgram/ hr, Titration: 25 microgram/ hour every 15 minutes, Goal(s): RASS, Max Dose: 300 microgram/ hr, Route: IV, Dosing Weight 90 kg, Total Volume: 20, Start date: 08/23/16 23:21:00 CDT, Duration.. . Fentanyl 2016-0 No 1,000 Memoria 7-08 microgram, l 04:21: 20 mL, Rate: Titrate, Start Dose: 50 microgram/ hr, Titration: 25 microgram/ hour every 15 minutes, Goal(s): RASS, Max Dose: 300 microgram/ hr, Route: IV, Dosing Weight 90 kg, Total Volume: 20, Start date: 08/23/16 23:21:00 CDT, Duration.. . Fentanyl 2016-0 No 1,000 Memoria 7-08 microgram, l 04:21: 20 mL, [place] 00 Rate: Titrate, Start Dose: 50 microgram/ hr, Titration: 25 microgram/ hour every 15 minutes, Goal(s): RASS, Max Dose: 300 microgram/ hr, Route: IV, Dosing Weight 90 kg, Total Volume: 20, Start date: 08/23/16 23:21:00 CDT, Duration.. . Fentanyl 2017-0 No 1,000 Memoria 7-08 microgram, l 04:21: 20 mL, [place] 00 Rate: Titrate, Start Dose: 50 microgram/ hr, Titration: 25 microgram/ hour every 15 minutes, Goal(s): RASS, Max Dose: 300 microgram/ hr, Route: IV, Dosing Weight 90 kg, Total Volume: 20, Start date: 08/23/16 23:21:00 CDT, Duration.. . Fentanyl 2017-0 No 1,000 Memoria 7-08 microgram, l 04:21: 20 mL, Rate: Titrate, Start Dose: 50 microgram/ hr, Titration: 25 microgram/ hour every 15 minutes, Goal(s): RASS, Max Dose: 300 microgram/ hr, Route: IV, Dosing Weight 90 kg, Total Volume: 20, Start date: 08/23/16 23:21:00 CDT, Duration.. . Fentanyl 2017-0 No 1,000 Memoria 7-08 microgram, l 04:21: 20 mL, Rate: Titrate, Start Dose: 50 microgram/ hr, Titration: 25 microgram/ hour every 15 minutes, Goal(s): RASS, Max Dose: 300 microgram/ hr, Route: IV, Dosing Weight 90 kg, Total Volume: 20, Start date: 08/23/16 23:21:00 CDT, Duration.. . fosphenytoi 2017-0 No 2,000 mg, emoria n 08-24 Route: l 04:13: IVPB, [place] 00 ONCE, Dosing Weight 90, kg, Priority: STAT, Start date: 08/23/16 23:13:00 CDT, Stop date: 08/23/16 23:13:00 CDT, Loading dose fosphenytoi 2017-0 No 2,000 mg, M emoria n 08-24 Route: l 04:13: IVPB, [place] 00 ONCE, Dosing Weight 90, kg, Priority: STAT, Start date: 08/23/16 23:13:00 CDT, Stop date: 08/23/16 23:13:00 CDT, Loading dose fosphenytoi 2017-0 No 2,000 mg, M emoria n 08-24 Route: l 04:13: IVPB, [place] 00 ONCE, Dosing Weight 90, kg, Priority: STAT, Start date: 08/23/16 23:13:00 CDT, Stop date: 08/23/16 23:13:00 CDT, Loading dose fosphenytoi 2017-0 No 2,000 mg, Lisa lewisria n 7 Route: l 04:13: IVPB, [place] 00 ONCE, Dosing Weight 90, kg, Priority: STAT, Start date: 08/23/16 23:13:00 CDT, Stop date: 08/23/16 23:13:00 CDT, Loading dose fosphenytoi 2017-0 No 2,000 mg, Lisa lewisria n 7 Route: l 04:13: IVPB, [place] 00 ONCE, Dosing Weight 90, kg, Priority: STAT, Start date: 08/23/16 23:13:00 CDT, Stop date: 08/23/16 23:13:00 CDT, Loading dose fosphenytoi 2017-0 No 2,000 mg, Lisa lewisria n 08-24 Route: l 04:13: IVPB, [place] 00 ONCE, Dosing Weight 90, kg, Priority: STAT, Start date: 08/23/16 23:13:00 CDT, Stop date: 08/23/16 23:13:00 CDT, Loading dose Sodium 2017-0 No 1,000 mL, Memori a Chloride 7-08 Infuse l 0.154 03:03: Over: 1 [place] MEQ/ML 00 hr, Route: Injectable IV, ONCE, Solution Priority: STAT, Dosing Weight 90 kg, Start date: 08/23/16 22:03:00 CDT, Duration: 1 doses or times, Stop date: 08/23/16 22:03:00 CDT Sodium 2017-0 No 1,000 mL, Memori a Chloride 7-08 Infuse l 0.154 03:03: Over: 1 [place] MEQ/ML 00 hr, Route: Injectable IV, ONCE, Solution Priority: STAT, Dosing Weight 90 kg, Start date: 08/23/16 22:03:00 CDT, Duration: 1 doses or times, Stop date: 08/23/16 22:03:00 CDT Sodium 2017-0 No 1,000 mL, Memori a Chloride 7-08 Infuse l 0.154 03:03: Over: 1 [place] MEQ/ML 00 hr, Route: Injectable IV, ONCE, Solution Priority: STAT, Dosing Weight 90 kg, Start date: 08/23/16 22:03:00 CDT, Duration: 1 doses or times, Stop date: 08/23/16 22:03:00 CDT Sodium 2017-0 No 1,000 mL, Memori a Chloride 7-08 Infuse l 0.154 03:03: Over: 1 [place] MEQ/ML 00 hr, Route: Injectable IV, ONCE, Solution Priority: STAT, Dosing Weight 90 kg, Start date: 08/23/16 22:03:00 CDT, Duration: 1 doses or times, Stop date: 08/23/16 22:03:00 CDT Sodium 2017-0 No 1,000 mL, Memori a Chloride 7-08 Infuse l 0.154 03:03: Over: 1 [place] MEQ/ML 00 hr, Route: Injectable IV, ONCE, Solution Priority: STAT, Dosing Weight 90 kg, Start date: 08/23/16 22:03:00 CDT, Duration: 1 doses or times, Stop date: 08/23/16 22:03:00 CDT Sodium 2017-0 No 1,000 mL, Memori a Chloride 7-08 Infuse l 0.154 03:03: Over: 1 [place] MEQ/ML 00 hr, Route: Injectable IV, ONCE, Solution Priority: STAT, Dosing Weight 90 kg, Start date: 08/23/16 22:03:00 CDT, Duration: 1 doses or times, Stop date: 08/23/16 22:03:00 CDT Propofol No Notes: If M emoria MG/ML 7-08 Diprivan - l Injectable 02:59: change Vanessa nn Suspension 00 bottle & tubing every 12 hr Per state nursing law propofol can only be given by a nurse if patient is intubated or being intubated (unless the nurse is a [employer]). Same as: Diprivan Propofol No Notes: If M emoria MG/ML 7-08 Diprivan - l Injectable 02:59: change [place] nn Suspension 00 bottle & tubing every 12 hr Per state nursing law propofol can only be given by a nurse if patient is intubated or being intubated (unless the nurse is a P[employer]). Same as: Diprivan Propofol No Notes: If M emoria MG/ML 7-08 Diprivan - l Injectable 02:59: change [place] nn Suspension 00 bottle & tubing every 12 hr Per state nursing law propofol can only be given by a nurse if patient is intubated or being intubated (unless the nurse is a P[employer] SAL[employer]). [facility] Notes: If M emoria MG/ML 7-08 Diprivan - l Injectable 02:59: change [place] nn Suspension 00 bottle & tubing every 12 hr Per state nursing law propofol can only be given by a nurse if patient is intubated or being intubated (unless the nurse is a [employer]). Same as: Diprivan Propofol No Notes: If M emoria MG/ML 7- Diprivan - l Injectable 02:59: change [place] nn Suspension 00 bottle & tubing every 12 hr Per state nursing law propofol can only be given by a nurse if patient is intubated or being intubated (unless the nurse is a P[employer] SALTER). [facility] No Notes: If M emoria MG/ML 7- Diprivan - l Injectable 02:59: change [place] nn Suspension 00 bottle & tubing every 12 hr Per state nursing law propofol can only be given by a nurse if patient is intubated or being intubated (unless the nurse is a P[employer] SALTER). Same as: [facility] zonisamide Yes 300 mg = 3 M emoria 100 mg oral 6-22 cap, PO, l capsule 13:57: Q12H, 0 [place] 00 Refill(s) zonisamide Yes 300 mg = 3 M emoria 100 mg oral 6-22 cap, PO, l capsule 13:57: Q12H, 0 [place] 00 Refill(s) zonisamide Yes 300 mg = 3 M emoria 100 mg oral 6-22 cap, PO, l capsule 13:57: Q12H, 0 [place] 00 Refill(s) zonisamide Yes 300 mg = 3 M emoria 100 mg oral 6-22 cap, PO, l capsule 13:57: Q12H, 0 [place] 00 Refill(s) zonisamide Yes 300 mg = 3 M emoria 100 mg oral 6-22 cap, PO, l capsule 13:57: Q12H, 0 [place] 00 Refill(s) zonisamide Yes 300 mg = 3 M emoria 100 mg oral 08-08 cap, PO, l capsule 13:57: Q12H, 0 Refill(s) Tylenol No Notes: Do Memor ia 6-22 not exceed l 12:51: 4 gm/day. (Same as: Tylenol) Tylenol No Notes: Do Memor ia 6-22 not exceed l 12:51: 4 gm/day. (Same as: Tylenol) Tylenol No Notes: Do Memor ia 6-22 not exceed l 12:51: 4 gm/day. (Same as: Tylenol) Tylenol No Notes: Do Memor ia 6-22 not exceed l 12:51: 4 gm/day. (Same as: Tylenol) Tylenol No Notes: Do Memor ia 6-22 not exceed l 12:51: 4 gm/day. (Same as: Tylenol) Tylenol No Notes: Do Memor ia 6-22 not exceed l 12:51: 4 gm/day. (Same as: Tylenol) Potassium No Notes: Memori a Chloride 6-22 (Same as: l 1.33 MEQ/ML 11:04: Potassium H ermann Oral 00 Chloride) Solution Potassium No Notes: Memori a Chloride 6-22 (Same as: l 1.33 MEQ/ML 11:04: Potassium H [place] Oral 00 Chloride) Solution Potassium No Notes: Memori a Chloride 6-22 (Same as: l 1.33 MEQ/ML 11:04: Potassium H [place] Oral 00 Chloride) Solution Potassium No Notes: Memori a Chloride 6-22 (Same as: l 1.33 MEQ/ML 11:04: Potassium H [place] Oral 00 Chloride) Solution Potassium No Notes: Memori a Chloride 6-22 (Same as: l 1.33 MEQ/ML 11:04: Potassium H [place] Oral 00 Chloride) Solution Potassium No Notes: Memori a Chloride 6-22 (Same as: l 1.33 MEQ/ML 11:04: Potassium H ermann Oral 00 Chloride) Solution Miralax No Notes: Memoria 6-21 Dissolve l 14:00: in 8 oz of [place] 00 water or juice. (Same as: Miralax) Docusate No Notes: Memoria 6-21 (Same as: l 14:00: Colace) [place] zonisamide No Notes: Memor ia 6-21 Contraindi l 14:00: cated in [place] 00 patients with hypersensi tivity to sulfonamid es. ([facility]: [facility]) Lamictal No Notes: Memoria 6-21 (Same l 14:00: as:LaMICta [place] 00 l) Miralax No Notes: Memoria 6-21 Dissolve l 14:00: in 8 oz of [place] 00 water or juice. (Same as: Miralax) Docusate No Notes: Memoria 6-21 (Same as: l 14:00: Colace) [place] 00 zonisamide No Notes: Memor ia 6-21 Contraindi l 14:00: cated in [place] 00 patients with hypersensi tivity to sulfonamid es. (Same As: [facility]) Lamictal No Notes: Memoria 6-21 (Same l 14:00: as:LaMICta [place] 00 l) Miralax No Notes: Memoria 6-21 Dissolve l 14:00: in 8 oz of [place] 00 water or juice. (Same as: Miralax) Docusate No Notes: Memoria 6-21 (Same as: l 14:00: Colace) [place] 00 zonisamide No Notes: Memor ia 6-21 Contraindi l 14:00: cated in [place] 00 patients with hypersensi tivity to sulfonamid es. ([facility]: [facility]) Lamictal No Notes: Memoria 6-21 (Same l 14:00: as:LaMICta [place] 00 l) Miralax No Notes: Memoria 6-21 Dissolve l 14:00: in 8 oz of [place] 00 water or juice. (Same as: Miralax) Docusate No Notes: Memoria 6-21 (Same as: l 14:00: Colace) [place] 00 zonisamide No Notes: Memor ia 6-21 Contraindi l 14:00: cated in [place] 00 patients with hypersensi tivity to sulfonamid es. (Same As: [facility]) Lamictal No Notes: Memoria 6-21 (Same l 14:00: as:LaMICta [place] 00 l) Miralax No Notes: Memoria 6-21 Dissolve l 14:00: in 8 oz of [place] 00 water or juice. (Same as: Miralax) Docusate No Notes: Memoria 6-21 (Same as: l 14:00: Colace) [place] zonisamide No Notes: Memor ia 6-21 Contraindi l 14:00: cated in [place] 00 patients with hypersensi tivity to sulfonamid es. (Same As: [facility]) Lamictal No Notes: Memoria 6-21 (Same l 14:00: as:LaMICta [place] 00 l) Miralax No Notes: Memoria 6-21 Dissolve l 14:00: in 8 oz of [place] 00 water or juice. (Same as: Miralax) Docusate No Notes: Memoria 6-21 (Same as: l 14:00: Colace) [place] zonisamide No Notes: Memor ia 6-21 Contraindi l 14:00: cated in [place] 00 patients with hypersensi tivity to sulfonamid es. (Same As: [facility]) Lamictal No Notes: Memoria 6-21 (Same l 14:00: as:LaMICta [place] 00 l) heparin No Notes: Memoria 6-21 porcine l 05:00: heparin [place] heparin No Notes: Memoria 6-21 porcine l 05:00: heparin [place] heparin No Notes: Memoria 6-21 porcine l 05:00: heparin [place] heparin No Notes: Memoria 6-21 porcine l 05:00: heparin [place] heparin No Notes: Memoria 6-21 porcine l 05:00: heparin [place] heparin No Notes: Memoria 6-21 porcine l 05:00: heparin [place] 00 sodium 2017-0 No 1,000 mL, Memori a chloride 6-21 Rate: 75 l 0.9% 1000 02:42: ml/hr, Jim n ml INJ 00 Infuse 1,000 mL over: 13.3 hr, Route: IV, Dosing Weight 72.727 kg, Total Volume: 1,000, Start date: 08/06/16 21:42:00 CDT, Duration: 30 day, Stop date: 09/05/16 21:41:00 CDT sodium 2017-0 No 1,000 mL, Memori a chloride 6-21 Rate: 75 l 0.9% 1000 02:42: ml/hr, Jim n ml INJ 00 Infuse 1,000 mL over: 13.3 hr, Route: IV, Dosing Weight 72.727 kg, Total Volume: 1,000, Start date: 08/06/16 21:42:00 CDT, Duration: 30 day, Stop date: 09/05/16 21:41:00 CDT sodium 2017-0 No 1,000 mL, Memori a chloride 6-21 Rate: 75 l 0.9% 1000 02:42: ml/hr, Jim n ml INJ 00 Infuse 1,000 mL over: 13.3 hr, Route: IV, Dosing Weight 72.727 kg, Total Volume: 1,000, Start date: 08/06/16 21:42:00 CDT, Duration: 30 day, Stop date: 09/05/16 21:41:00 CDT sodium 2017-0 No 1,000 mL, Memori a chloride 6-21 Rate: 75 l 0.9% 1000 02:42: ml/hr, Jim n ml INJ 00 Infuse 1,000 mL over: 13.3 hr, Route: IV, Dosing Weight 72.727 kg, Total Volume: 1,000, Start date: 08/06/16 21:42:00 CDT, Duration: 30 day, Stop date: 09/05/16 21:41:00 CDT sodium 2017-0 No 1,000 mL, Memori a chloride 6-21 Rate: 75 l 0.9% 1000 02:42: ml/hr, Jim n ml INJ 00 Infuse 1,000 mL over: 13.3 hr, Route: IV, Dosing Weight 72.727 kg, Total Volume: 1,000, Start date: 08/06/16 21:42:00 CDT, Duration: 30 day, Stop date: 09/05/16 21:41:00 CDT sodium 2016-0 No 1,000 mL, Memori a chloride 08-07 Rate: 75 l 0.9% 1000 02:42: ml/hr, Jim n ml INJ 00 Infuse 1,000 mL over: 13.3 hr, Route: IV, Dosing Weight 72.727 kg, Total Volume: 1,000, Start date: 08/06/16 21:42:00 CDT, Duration: 30 day, Stop date: 09/05/16 21:41:00 CDT Keppra 2016-0 No Notes: Memoria 08-07 Same as l 02:00: Keppra Mix with 100 mL NS, LR or D5W MEDICATION WASTE Product Size: 500 mg Product Wasted: ___ mg Keppra 2016- No Notes: Memoria 08-07 Same as l 02:00: Keppra Mix with 100 mL NS, LR or D5W MEDICATION WASTE Product Size: 500 mg Product Wasted: ___ mg Keppra 2016- No Notes: Memoria 08-07 Same as l 02:00: Keppra Mix with 100 mL NS, LR or D5W MEDICATION WASTE Product Size: 500 mg Product Wasted: ___ mg Keppra 2016-0 No Notes: Memoria 08-07 Same as l 02:00: Keppra Mix with 100 mL NS, LR or D5W MEDICATION WASTE Product Size: 500 mg Product Wasted: ___ mg Keppra 2016-0 No Notes: Memoria 08-07 Same as l 02:00: Keppra Mix with 100 mL NS, LR or D5W MEDICATION WASTE Product Size: 500 mg Product Wasted: ___ mg Keppra 2016-0 No Notes: Memoria 08-07 Same as l 02:00: Keppra Mix with 100 mL NS, LR or D5W MEDICATION WASTE Product Size: 500 mg Product Wasted: ___ mg sertraline 2017- Yes 50 mg = 1 Me moria 50 mg oral 6-20 tab, PO, l tablet 23:33: Daily, # [place] 00 30 tab, 0 Refill(s) zonisamide 2016-0 No 300 mg = 3 M emoria 100 mg oral 6-20 cap, PO, l capsule 23:33: BID, # 270 Herm dahlia 00 cap, 0 Refill(s) lamotrigine 2017-0 Yes 3 tablets, Memoria 100 MG Oral 6-20 PO, BID, # l Tablet 23:33: 60 tab, 0 Jim n [Lamictal] 00 Refill(s) sertraline 2017-0 Yes 50 mg = 1 Me moria 50 mg oral 6-20 tab, PO, l tablet 23:33: Daily, # [place] 00 30 tab, 0 Refill(s) zonisamide 2016-0 No 300 mg = 3 M emoria 100 mg oral 6-20 cap, PO, l capsule 23:33: BID, # 270 Herm dahlia 00 cap, 0 Refill(s) lamotrigine 2016-0 Yes 3 tablets, Memoria 100 MG Oral 6-20 PO, BID, # l Tablet 23:33: 60 tab, 0 Jim n [Lamictal] 00 Refill(s) sertraline 2017-0 Yes 50 mg = 1 Me moria 50 mg oral 6-20 tab, PO, l tablet 23:33: Daily, # [place] 00 30 tab, 0 Refill(s) zonisamide 2016-0 No 300 mg = 3 M emoria 100 mg oral 6-20 cap, PO, l capsule 23:33: BID, # 270 [place] dahlia 00 cap, 0 Refill(s) lamotrigine 2017-0 Yes 3 tablets, Memoria 100 MG Oral 6-20 PO, BID, # l Tablet 23:33: 60 tab, 0 Jim n [Lamictal] 00 Refill(s) sertraline 2016-0 Yes 50 mg = 1 Me moria 50 mg oral 6-20 tab, PO, l tablet 23:33: Daily, # [place] 00 30 tab, 0 Refill(s) zonisamide 2016-0 No 300 mg = 3 M emoria 100 mg oral 6-20 cap, PO, l capsule 23:33: BID, # 270 [place] dahlia 00 cap, 0 Refill(s) lamotrigine 2017- Yes 3 tablets, Memoria 100 MG Oral 6-20 PO, BID, # l Tablet 23:33: 60 tab, 0 Jim n [Lamictal] 00 Refill(s) sertraline Yes 50 mg = 1 Me moria 50 mg oral 6-20 tab, PO, l tablet 23:33: Daily, # [place] 00 30 tab, 0 Refill(s) zonisamide No 300 mg = 3 M emoria 100 mg oral 6-20 cap, PO, l capsule 23:33: BID, # 270 [place] dahlia 00 cap, 0 Refill(s) lamotrigine 2016-0 Yes 3 tablets, Memoria 100 MG Oral 6-20 PO, BID, # l Tablet 23:33: 60 tab, 0 Jim n [Lamictal] 00 Refill(s) sertraline Yes 50 mg = 1 Me moria 50 mg oral 6-20 tab, PO, l tablet 23:33: Daily, # [place] 00 30 tab, 0 Refill(s) zonisamide No 300 mg = 3 M emoria 100 mg oral 6-20 cap, PO, l capsule 23:33: BID, # 270 Herm dahlia 00 cap, 0 Refill(s) lamotrigine 2016-0 Yes 3 tablets, Memoria 100 MG Oral 6-20 PO, BID, # l Tablet 23:33: 60 tab, 0 Jim n [Lamictal] 00 Refill(s) Insulin No 60 units) [place] denisse regular 6-20 WASTE: F/P l 22:28: - Black; E [place] 00 - [facility] Trash Bin Stable for 28 days at room temperatur e Expires in days from ____Date Glucagon 0 No 1 mg, Memoria 6-20 Route: IM, l 22:28: Drug form: [place] 00 PDR/INJ, PRN, Dosing Weight 72.727, kg, PRN Blood Glucose Results, Start date: 08/06/16 17:28:00 CDT, Duration: 30 day, Stop date: 09/05/16 17:27:00 CDT Dextrose 2017-0 No 25 gm, 50 [place] 50% Syringe 6-20 mL, Route: l 22:28: IVP, Drug Form: INJ, Dosing Weight 72.727, kg, PRN, PRN Blood Glucose Results, Start date: 08/06/16 17:28:00 CDT, Duration: 30 day, Stop date: 09/05/16 17:27:00 CDT Insulin 2017-0 No 60 units) [place] denisse regular 6-20 WASTE: F/P l 22:28: - Black; E [place] 00 - [facility] Trash Bin Stable for 28 days at room temperatur e Expires in days from ____Date Glucagon 2017-0 No 1 mg, Memoria 6-20 Route: IM, l 22:28: Drug form: PDR/INJ, PRN, Dosing Weight 72.727, kg, PRN Blood Glucose Results, Start date: 08/06/16 17:28:00 CDT, Duration: 30 day, Stop date: 09/05/16 17:27:00 CDT Dextrose 2017-0 No 25 gm, 50 [place] 50% Syringe 6-20 mL, Route: l 22:28: IVP, Drug Form: INJ, Dosing Weight 72.727, kg, PRN, PRN Blood Glucose Results, Start date: 08/06/16 17:28:00 CDT, Duration: 30 day, Stop date: 09/05/16 17:27:00 CDT Insulin 2017-0 No 60 units) [place] den[place] regular 6-20 WASTE: F/P l 22:28: - Black; E - [facility] Trash Bin Stable for 28 days at room temperatur e Expires in days from ____Date Glucagon 2017-0 No 1 mg, Memoria 6-20 Route: IM, l 22:28: Drug form: [place] 00 PDR/INJ, PRN, Dosing Weight 72.727, kg, PRN Blood Glucose Results, Start date: 08/06/16 17:28:00 CDT, Duration: 30 day, Stop date: 09/05/16 17:27:00 CDT Dextrose 2017-0 No 25 gm, 50 [place] 50% Syringe 6-20 mL, Route: l 22:28: IVP, Drug Form: INJ, Dosing Weight 72.727, kg, PRN, PRN Blood Glucose Results, Start date: 08/06/16 17:28:00 CDT, Duration: 30 day, Stop date: 09/05/16 17:27:00 CDT Insulin 2017-0 No 60 units) [place] den[place] regular 6-20 WASTE: F/P l 22:28: - Black; E [place] - [facility] Trash Bin Stable for 28 days at room temperatur e Expires in days from ____Date Glucagon 2017-0 No 1 mg, Memoria 6-20 Route: IM, l 22:28: Drug form: [place] 00 PDR/INJ, PRN, Dosing Weight 72.727, kg, PRN Blood Glucose Results, Start date: 08/06/16 17:28:00 CDT, Duration: 30 day, Stop date: 09/05/16 17:27:00 CDT Dextrose 2017-0 No 25 gm, 50 [place] 50% Syringe 6-20 mL, Route: l 22:28: IVP, Drug Form: INJ, Dosing Weight 72.727, kg, PRN, PRN Blood Glucose Results, Start date: 08/06/16 17:28:00 CDT, Duration: 30 day, Stop date: 09/05/16 17:27:00 CDT Insulin 2017-0 No 60 units) [place] denisse regular 6-20 WASTE: F/P l 22:28: - Black; E [place] [facility] Trash Bin Stable for 28 days at room temperatur e Expires in days from ____Date Glucagon 2017-0 No 1 mg, Memoria 6-20 Route: IM, l 22:28: Drug form: [place] 00 PDR/INJ, PRN, Dosing Weight 72.727, kg, PRN Blood Glucose Results, Start date: 08/06/16 17:28:00 CDT, Duration: 30 day, Stop date: 09/05/16 17:27:00 CDT Dextrose No 25 gm, 50 [place] 50% Syringe 6-20 mL, Route: l 22:28: IVP, Drug Form: INJ, Dosing Weight 72.727, kg, PRN, PRN Blood Glucose Results, Start date: 08/06/16 17:28:00 CDT, Duration: 30 day, Stop date: 09/05/16 17:27:00 CDT Insulin No 60 units) [place] den[place] regular 6-20 WASTE: F/P l 22:28: - Black; E [place] - [facility] Trash Bin Stable for 28 days at room temperatur e Expires in days from ____Date Glucagon No 1 mg, Memoria 6-20 Route: IM, l 22:28: Drug form: [place] 00 PDR/INJ, PRN, Dosing Weight 72.727, kg, PRN Blood Glucose Results, Start date: 08/06/16 17:28:00 CDT, Duration: 30 day, Stop date: 09/05/16 17:27:00 CDT Dextrose No 25 gm, 50 [place] 50% Syringe 6-20 mL, Route: l 22:28: IVP, Drug Form: INJ, Dosing Weight 72.727, kg, PRN, PRN Blood Glucose Results, Start date: 08/06/16 17:28:00 CDT, Duration: 30 day, Stop date: 09/05/16 17:27:00 CDT Calcium No Notes: Memoria Carbonate 6-20 (Same As: l 500 MG 22:27: Tums) [place] Chewable 00 Calcium Tablet Carbonate 500 mg = 200 mg elemental calcium Dose = mg calcium carbonate ( mg elemental calcium) potassium No Notes: Memori a chloride 6-20 (Same as: l 22:27: KCL) [place] 00 Infuse over 2 hours. potassium No Notes: Memori a phosphate-s 6-20 (Same as: l odium 22:27: Phos-NaK) [place] phosphate 00 Each 1.5 250 mg-280 gm pkt has mg-160 mg 250mg oral powder phosphorou for s. Mix reconstitut w/2.5oz ion water and stir. potassium No Notes: Memori a phosphate + 6-20 (Same as: l sodium 22:27: K [place] chloride 00 Phosphate. 0.9% INJ ) 1 mMol 250 mL phoshate has 1.47 mEq potassium Infuse over 4 hours Magnesium No Notes: Memori a Sulfate 6-20 WASTE: F/P l 22:27: - Sink; E [place] 00 - [facility] Trash Bin sodium No 30 mmol, Memoria phosphate + 6-20 10 mL, l sodium 22:27: Route: [place] chloride 00 IVPB, PRN, 0.9% INJ Dosing 250 mL Weight 72.727, kg, PRN Abnormal Lab Result, Start date: 08/06/16 17:27:00 CDT, Duration: 30 day, Stop date: 09/05/16 17:26:00 CDT, FOR ICU USE ONLY Magnesium No Notes: Memori a Oxide 6-20 (Same as: l 22:27: Mag-Ox [place] 00 400) Magnesium oxide [id number] g elemental magnesium Dose=____m g magnesium oxide (___mg elemental magnesium) Calcium No Notes: Memoria Gluconate 6-20 WASTE: F/P l 22:27: - Sink; E - [facility] Trash [facility] Calcium No Notes: Memoria Carbonate 6-20 (Same As: l 500 MG 22:27: Tums) [place] Chewable 00 Calcium Tablet Carbonate 500 mg = 200 mg elemental calcium Dose = mg calcium carbonate ( mg elemental calcium) potassium No Notes: Memori a chloride 6-20 (Same as: l 22:27: KCL) [place] 00 Infuse over 2 hours. potassium No Notes: Memori a phosphate-s 6-20 (Same as: l odium 22:27: Phos-NaK) [place] phosphate 00 Each 1.5 250 mg-280 gm pkt has mg-160 mg 250mg oral powder phosphorou for s. Mix reconstitut w/2.5oz ion water and stir. potassium No Notes: Memori a phosphate + 6-20 (Same as: l sodium 22:27: K [place] chloride 00 Phosphate. 0.9% INJ ) 1 mMol 250 mL phoshate has 1.47 mEq potassium Infuse over 4 hours Magnesium No Notes: Memori a Sulfate 6-20 WASTE: F/P l 22:27: - Sink; E [place] 00 - [facility] Trash [facility] sodium No 30 mmol, Memoria phosphate + 6-20 10 mL, l sodium 22:27: Route: [place] chloride 00 IVPB, PRN, 0.9% INJ Dosing 250 mL Weight 72.727, kg, PRN Abnormal Lab Result, Start date: 08/06/16 17:27:00 CDT, Duration: 30 day, Stop date: 09/05/16 17:26:00 CDT, FOR ICU USE ONLY Magnesium No Notes: Memori a Oxide 6-20 (Same as: l 22:27: Mag-Ox [place] 00 400) Magnesium oxide [id number] g elemental magnesium Dose=____m g magnesium oxide (___mg elemental magnesium) Calcium No Notes: Memoria Gluconate 6-20 WASTE: F/P l 22:27: - Sink; E - [facility] Calcium No Notes: Memoria Carbonate 6-20 (Same As: l 500 MG 22:27: Tums) [place] Chewable 00 Calcium Tablet Carbonate 500 mg = 200 mg elemental calcium Dose = mg calcium carbonate ( mg elemental calcium) potassium No Notes: Memori a chloride 6-20 (Same as: l 22:27: KCL) [place] 00 Infuse over 2 hours. potassium No Notes: Memori a phosphate-s 6-20 (Same as: l odium 22:27: Phos-NaK) [place] phosphate 00 Each 1.5 250 mg-280 gm pkt has mg-160 mg 250mg oral powder phosphorou for s. Mix reconstitut w/2.5oz ion water and stir. potassium No Notes: Memori a phosphate + 6-20 (Same as: l sodium 22:27: K [place] chloride 00 Phosphate. 0.9% INJ ) 1 mMol 250 mL phoshate has 1.47 mEq potassium Infuse over 4 hours Magnesium No Notes: Memori a Sulfate 6-20 WASTE: F/P l 22:27: - Sink; E [place] 00 - [facility] Trash [facility] sodium No 30 mmol, Memoria phosphate + 6-20 10 mL, l sodium 22:27: Route: [place] chloride 00 IVPB, PRN, 0.9% INJ Dosing 250 mL Weight 72.727, kg, PRN Abnormal Lab Result, Start date: 08/06/16 17:27:00 CDT, Duration: 30 day, Stop date: 09/05/16 17:26:00 CDT, FOR ICU USE ONLY Magnesium No Notes: Memori a Oxide 6-20 (Same as: l 22:27: Mag-Ox [place] 00 400) Magnesium oxide [id number]=[id number] g elemental magnesium Dose=____m g magnesium oxide (___mg elemental magnesium) Calcium No Notes: Memoria Gluconate 6-20 WASTE: F/P l 22:27: - Sink; E [place] - [facility] Calcium No Notes: [facility] Carbonate 6-20 (Same As: l 500 MG 22:27: Tums) Kobi Chewable 00 Calcium Tablet Carbonate 500 mg = 200 mg elemental calcium Dose = mg calcium carbonate ( mg elemental calcium) potassium No Notes: Memori a chloride 6-20 (Same as: l 22:27: KCL) [place] 00 Infuse over 2 hours. potassium No Notes: Memori a phosphate-s 6-20 (Same as: l odium 22:27: Phos-NaK) Kobi phosphate 00 Each 1.5 250 mg-280 gm pkt has mg-160 mg 250mg oral powder phosphorou for s. Mix reconstitut w/2.5oz ion water and stir. potassium No Notes: Memori a phosphate + 6-20 (Same as: l sodium 22:27: K [place] chloride 00 Phosphate. 0.9% INJ ) 1 mMol 250 mL phoshate has 1.47 mEq potassium Infuse over 4 hours Magnesium No Notes: Memori a Sulfate 6-20 WASTE: F/P l 22:27: - Sink; E [place] - [facility] sodium No 30 mmol, Memoria phosphate + 6-20 10 mL, l sodium 22:27: Route: [place] chloride 00 IVPB, PRN, 0.9% INJ Dosing 250 mL Weight 72.727, kg, PRN Abnormal Lab Result, Start date: 08/06/16 17:27:00 CDT, Duration: 30 day, Stop date: 09/05/16 17:26:00 CDT, FOR ICU USE ONLY Magnesium No Notes: Memori a Oxide 6-20 (Same as: l 22:27: Mag-Ox [place] 00 400) Magnesium oxide [id number]=365w g elemental magnesium Dose=____m g magnesium oxide (___mg elemental magnesium) Calcium No Notes: [facility] Gluconate 6-20 WASTE: F/P l 22:27: - Sink; E [place] 00 - Municipal Trash Bin Calcium No Notes: [facility] Carbonate 6-20 (Same As: l 500 MG 22:27: Tums) [place] Chewable 00 Calcium Tablet Carbonate 500 mg = 200 mg elemental calcium Dose = mg calcium carbonate ( mg elemental calcium) potassium No Notes: Memori a chloride 6-20 (Same as: l 22:27: KCL) [place] 00 Infuse over 2 hours. potassium No Notes: Memori a phosphate-s 6-20 (Same as: l odium 22:27: Phos-NaK) [place] phosphate 00 Each 1.5 250 mg-280 gm pkt has mg-160 mg 250mg oral powder phosphorou for s. Mix reconstitut w/2.5oz ion water and stir. potassium No Notes: Memori a phosphate + 6-20 (Same as: l sodium 22:27: K [place] chloride 00 Phosphate. 0.9% INJ ) 1 mMol 250 mL phoshate has 1.47 mEq potassium Infuse over 4 hours Magnesium No Notes: [facility] a Sulfate 6-20 WASTE: F/P l 22:27: - Sink; E [place] 00 - [facility] Trash Bin sodium No 30 mmol, [facility] phosphate + 6-20 10 mL, l sodium 22:27: Route: [place] chloride 00 IVPB, PRN, 0.9% INJ Dosing 250 mL Weight 72.727, kg, PRN Abnormal Lab Result, Start date: 08/06/16 17:27:00 CDT, Duration: 30 day, Stop date: 09/05/16 17:26:00 CDT, FOR ICU USE ONLY Magnesium No Notes: [facility] a Oxide 6-20 (Same as: l 22:27: Mag-Ox [place] 00 400) Magnesium oxide 862he=175j g elemental magnesium Dose=____m g magnesium oxide (___mg elemental magnesium) Calcium No Notes: [facility] Gluconate 6-20 WASTE: F/P l 22:27: - Sink; E [place] 00 - [facility] Trash Bin Calcium No Notes: [facility] Carbonate 6-20 (Same As: l 500 MG 22:27: Tums) [place] Chewable 00 Calcium Tablet Carbonate 500 mg = 200 mg elemental calcium Dose = mg calcium carbonate ( mg elemental calcium) potassium No Notes: Memori a chloride 6-20 (Same as: l 22:27: KCL) [place] 00 Infuse over 2 hours. potassium No Notes: [facility] a phosphate-s 6-20 (Same as: l odium 22:27: Phos-NaK) [place] phosphate 00 Each 1.5 250 mg-280 gm pkt has mg-160 mg 250mg oral powder phosphorou for s. Mix reconstitut w/2.5oz ion water and stir. potassium No Notes: [facility] a phosphate + 6-20 (Same as: l sodium 22:27: K [place] chloride 00 Phosphate. 0.9% INJ ) 1 mMol 250 mL phoshate has 1.47 mEq potassium Infuse over 4 hours Magnesium No Notes: [facility] a Sulfate 6-20 WASTE: F/P l 22:27: - Sink; E [place] 00 - [facility] Trash [facility] sodium No 30 mmol, [facility] phosphate + 6-20 10 mL, l sodium 22:27: Route: [place] chloride 00 IVPB, PRN, 0.9% INJ Dosing 250 mL Weight 72.727, kg, PRN Abnormal Lab Result, Start date: 08/06/16 17:27:00 CDT, Duration: 30 day, Stop date: 09/05/16 17:26:00 CDT, FOR ICU USE ONLY Magnesium 2016- No Notes: [facility] a Oxide 08-06 (Same as: l 22:27: Mag-Ox [place] 400) Magnesium oxide 712ua=205k g elemental magnesium Dose=____m g magnesium oxide (___mg elemental magnesium) Calcium 2016-0 No Notes: [facility] Gluconate 08-06 WASTE: F/P l 22:27: - Sink; E [place] [facility] LaMICtal XR 2013-0 No 600 mg, 6 M emoria 3-01 tab, l 15:00: Route: PO, Drug form: ERTAB, Daily, Dosing Weight 72.727, kg, Start date: 04/17/13 9:00:00, Duration: 30 day, Stop date: 05/16/13 9:00:00Sam e as: LaMICtal XR LaMICtal XR 2013-0 No 600 mg, 6 M emoria 3- tab, l 15:00: Route: PO, Drug form: ERTAB, Daily, Dosing Weight 72.727, kg, Start date: 04/17/13 9:00:00, Duration: 30 day, Stop date: 05/16/13 9:00:00Sam e as: LaMICtal XR LaMICtal XR 2013-0 No 600 mg, 6 M emoria 3- tab, l 15:00: Route: PO, Drug form: ERTAB, Daily, Dosing Weight 72.727, kg, Start date: 04/17/13 9:00:00, Duration: 30 day, Stop date: 05/16/13 9:00:00Sam e as: LaMICtal XR LaMICtal XR 2013-0 No 600 mg, 6 M emoria 3-01 tab, l 15:00: Route: PO, Drug form: ERTAB, Daily, Dosing Weight 72.727, kg, Start date: 04/17/13 9:00:00, Duration: 30 day, Stop date: 05/16/13 9:00:00Sam e as: LaMICtal XR LaMICtal XR 2013-0 No 600 mg, 6 M emoria 3-01 tab, l 15:00: Route: PO, [place] 00 Drug form: ERTAB, Daily, Dosing Weight 72.727, kg, Start date: 04/17/13 9:00:00, Duration: 30 day, Stop date: 05/16/13 9:00:00Sam e as: LaMICtal XR LaMICtal XR No 600 mg, 6 M emoria 3-01 tab, l 15:00: Route: PO, [place] Drug form: ERTAB, Daily, Dosing Weight 72.727, kg, Start date: 04/17/13 9:00:00, Duration: 30 day, Stop date: 05/16/13 9:00:00Sam e as: LaMICtal XR Lorazepam 1 Yes 1 mg = 1 Me moria MG Oral 3-01 tab, PO, l Tablet 14:00: BID, # 8 [place] [Ativan] 00 tab, 0 Refill(s) Lorazepam 1 Yes 1 mg = 1 Me mor[place] MG Oral 3-01 tab, PO, l Tablet 14:00: BID, # 8 [place] [Ativan] 00 tab, 0 Refill(s) Lorazepam 1 Yes 1 mg = 1 Me mor[place] MG Oral 3-01 tab, PO, l Tablet 14:00: BID, # 8 [place] [Ativan] 00 tab, 0 Refill(s) Lorazepam 1 Yes 1 mg = 1 Me mor[place] MG Oral 3-01 tab, PO, l Tablet 14:00: BID, # 8 [place] [Ativan] 00 tab, 0 Refill(s) Lorazepam 1 Yes 1 mg = 1 Me [place] MG Oral 3-01 tab, PO, l Tablet 14:00: BID, # 8 [place] [Ativan] 00 tab, 0 Refill(s) Lorazepam 1 Yes 1 mg = 1 Me mor[place] MG Oral 3-01 tab, PO, l Tablet 14:00: BID, # 8 [place] [Ativan] 00 tab, 0 Refill(s) 24 HR Yes 600 mg = 6 Memori a lamotrigine 3-01 tab, PO, l 100 MG 13:57: Daily, # [place] Extended 00 180 tab, Release 11 Tablet Refill(s) sertraline Yes 25 mg = 1 Me [place] 25 mg oral 3-01 tab, PO, l tablet 13:57: Daily, # [place] 00 30 tab, 11 Refill(s) 24 HR Yes 600 mg = 6 Memori a lamotrigine 3-01 tab, PO, l 100 MG 13:57: Daily, # [place] Extended 00 180 tab, Release 11 Tablet Refill(s) sertraline Yes 25 mg = 1 Me [place] 25 mg oral 3-01 tab, PO, l tablet 13:57: Daily, # [place] 00 30 tab, 11 Refill(s) 24 HR Yes 600 mg = 6 Memori a lamotrigine 3-01 tab, PO, l 100 MG 13:57: Daily, # [place] Extended 00 180 tab, Release 11 Tablet Refill(s) sertraline Yes 25 mg = 1 Me [place] 25 mg oral 3-01 tab, PO, l tablet 13:57: Daily, # [place] 00 30 tab, 11 Refill(s) 24 HR Yes 600 mg = 6 Mem[facility] a lamotrigine 3-01 tab, PO, l 100 MG 13:57: Daily, # [place] Extended 00 180 tab, Release 11 Tablet Refill(s) sertraline Yes 25 mg = 1 Me [place] 25 mg oral 3-01 tab, PO, l tablet 13:57: Daily, # [place] 00 30 tab, 11 Refill(s) 24 HR Yes 600 mg = 6 Memori a lamotrigine 3-01 tab, PO, l 100 MG 13:57: Daily, # [place] Extended 00 180 tab, Release 11 Tablet Refill(s) sertraline Yes 25 mg = 1 Me [place] 25 mg oral 3-01 tab, PO, l tablet 13:57: Daily, # [place] 00 30 tab, 11 Refill(s) 24 HR Yes 600 mg = 6 Memori a lamotrigine 3-01 tab, PO, l 100 MG 13:57: Daily, # [place] Extended 00 180 tab, Release 11 Tablet Refill(s) sertraline Yes 25 mg = 1 Me [place] 25 mg oral 3-01 tab, PO, l tablet 13:57: Daily, # [place] 00 30 tab, 11 Refill(s) Ibuprofen 2014-0 Yes 600 mg, 1 Mem oria 3-01 tab, l 06:40: Route: PO, [place] 00 Drug form: TAB, ONCE, Dosing Weight 72.727, kg, Priority: NOW, Start date: 04/17/13 0:40:00, Stop date: 04/17/13 0:40:00(Sa me as: Motrin) "Do Not Crush" Take with food. Ibuprofen 2014-0 Yes 600 mg, 1 Mem oria 3-01 tab, l 06:40: Route: PO, [place] 00 Drug form: TAB, ONCE, Dosing Weight 72.727, kg, Priority: NOW, Start date: 04/17/13 0:40:00, Stop date: 04/17/13 0:40:00(Sa me as: Motrin) "Do Not Crush" Take with food. Ibuprofen 2014-0 Yes 600 mg, 1 Mem oria 3-01 tab, l 06:40: Route: PO, [place] 00 Drug form: TAB, ONCE, Dosing Weight 72.727, kg, Priority: NOW, Start date: 04/17/13 0:40:00, Stop date: 04/17/13 0:40:00(Sa me as: Motrin) "Do Not Crush" Take with food. Ibuprofen 2014-0 Yes 600 mg, 1 Mem oria 3-01 tab, l 06:40: Route: PO, Drug form: TAB, ONCE, Dosing Weight 72.727, kg, Priority: NOW, Start date: 04/17/13 0:40:00, Stop date: 04/17/13 0:40:00(Sa me as: Motrin) "Do Not Crush" Take with food. Ibuprofen 2014-0 Yes 600 mg, 1 Mem oria 3-01 tab, l 06:40: Route: PO, Drug form: TAB, ONCE, Dosing Weight 72.727, kg, Priority: NOW, Start date: 04/17/13 0:40:00, Stop date: 04/17/13 0:40:00(Sa me as: Motrin) "Do Not Crush" Take with food. Ibuprofen 2014-0 Yes 600 mg, 1 Mem oria 3-01 tab, l 06:40: Route: PO, [place] 00 Drug form: TAB, ONCE, Dosing Weight 72.727, kg, Priority: NOW, Start date: 04/17/13 0:40:00, Stop date: 04/17/13 0:40:00(Sa me as: Motrin) "Do Not Crush" Take with food. Zofran 2014-0 No 4 mg, 2 Mem[facility] 3-01 mL, Route: l 04:00: IV, Drug [place] 00 form: INJ, Q8H, Dosing Weight 72.727, kg, PRN Nausea, Start date: 04/16/13 22:00:00, Duration: 30 day, Stop date: 05/16/13 21:59:00(S kwame as: Zofran) Zofran 2014-0 No 4 mg, 2 [facility] 3-01 mL, Route: l 04:00: IV, Drug [place] 00 form: INJ, Q8H, Dosing Weight 72.727, kg, PRN Nausea, Start date: 04/16/13 22:00:00, Duration: 30 day, Stop date: 05/16/13 21:59:00(S kwame as: Zofran) Zofran 2014-0 No 4 mg, 2 [facility] 3-01 mL, Route: l 04:00: IV, Drug [place] 00 form: INJ, Q8H, Dosing Weight 72.727, kg, PRN Nausea, Start date: 04/16/13 22:00:00, Duration: 30 day, Stop date: 05/16/13 21:59:00(S kwame as: Zofran) Zofran 2014-0 No 4 mg, 2 [facility] 3-01 mL, Route: l 04:00: IV, Drug [place] 00 form: INJ, Q8H, Dosing Weight 72.727, kg, PRN Nausea, Start date: 04/16/13 22:00:00, Duration: 30 day, Stop date: 05/16/13 21:59:00(S kwame as: Zofran) Zofran 2014-0 No 4 mg, 2 [facility] 3-01 mL, Route: l 04:00: IV, Drug [place] 00 form: INJ, Q8H, Dosing Weight 72.727, kg, PRN Nausea, Start date: 04/16/13 22:00:00, Duration: 30 day, Stop date: 05/16/13 21:59:00(S kwame as: Zofran) Zofran 2014-0 No 4 mg, 2 [facility] 3-01 mL, Route: l 04:00: IV, Drug form: INJ, Q8H, Dosing Weight 72.727, kg, PRN Nausea, Start date: 04/16/13 22:00:00, Duration: 30 day, Stop date: 05/16/13 21:59:00(S kwame as: Zofran) LaMICtal XR 2014-0 No 600 mg, 6 M emoria 3-01 tab, l 03:59: Route: PO, Drug form: ERTAB, ONCE, Dosing Weight 72.727, kg, Priority: NOW, Start date: 04/16/13 21:59:00, Stop date: 04/16/13 21:59:00Sa me as: LaMICtal XR LaMICtal XR 2014-0 No 600 mg, 6 M emoria 3-01 tab, l 03:59: Route: PO, Drug form: ERTAB, ONCE, Dosing Weight 72.727, kg, Priority: NOW, Start date: 04/16/13 21:59:00, Stop date: 04/16/13 21:59:00Sa me as: LaMICtal XR LaMICtal XR 2014-0 No 600 mg, 6 M emoria 3-01 tab, l 03:59: Route: PO, Drug form: ERTAB, ONCE, Dosing Weight 72.727, kg, Priority: NOW, Start date: 04/16/13 21:59:00, Stop date: 04/16/13 21:59:00Sa me as: LaMICtal XR LaMICtal XR 2014-0 No 600 mg, 6 M emoria 3-01 tab, l 03:59: Route: PO, Drug form: ERTAB, ONCE, Dosing Weight 72.727, kg, Priority: NOW, Start date: 04/16/13 21:59:00, Stop date: 04/16/13 21:59:00Sa me as: LaMICtal XR LaMICtal XR 2014-0 No 600 mg, 6 M emoria 3-01 tab, l 03:59: Route: PO, [place] 00 Drug form: ERTAB, ONCE, Dosing Weight 72.727, kg, Priority: NOW, Start date: 04/16/13 21:59:00, Stop date: 04/16/13 21:59:00Sa me as: LaMICtal XR LaMICtal XR 2014-0 No 600 mg, 6 M emoria 3-01 tab, l 03:59: Route: PO, [place] 00 Drug form: ERTAB, ONCE, Dosing Weight 72.727, kg, Priority: NOW, Start date: 04/16/13 21:59:00, Stop date: 04/16/13 21:59:00Sa me as: LaMICtal XR lacosamide 2014-0 No 100 mg, 1 Me moria 3-01 tab, l 01:30: Route: PO, [place] 00 Drug form: TAB, BID, Dosing Weight 72.727, kg, Start date: 04/16/13 19:30:00, Duration: 30 day, Stop date: 05/16/13 17:00:00Sa me as: [place] lacosamide 2014-0 No 100 mg, 1 Me moria 3-01 tab, l 01:30: Route: PO, Drug form: TAB, BID, Dosing Weight 72.727, kg, Start date: 04/16/13 19:30:00, Duration: 30 day, Stop date: 05/16/13 17:00:00Sa me as: [place] lacosamide 2014-0 No 100 mg, 1 Me moria 3-01 tab, l 01:30: Route: PO, [place] 00 Drug form: TAB, BID, Dosing Weight 72.727, kg, Start date: 04/16/13 19:30:00, Duration: 30 day, Stop date: 05/16/13 17:00:00Sa me as: [place] lacosamide 2014-0 No 100 mg, 1 Me moria 3-01 tab, l 01:30: Route: PO, Drug form: TAB, BID, Dosing Weight 72.727, kg, Start date: 04/16/13 19:30:00, Duration: 30 day, Stop date: 05/16/13 17:00:00Sa me as: [place] lacosamide 2013-0 No 100 mg, 1 Me moria 3-01 tab, l 01:30: Route: PO, [place] 00 Drug form: TAB, BID, Dosing Weight 72.727, kg, Start date: 04/16/13 19:30:00, Duration: 30 day, Stop date: 05/16/13 17:00:00Sa me as: Vim[place] lacosamide 2013-0 No 100 mg, 1 Me mor[place] 3-01 tab, l 01:30: Route: PO, [place] 00 Drug form: TAB, BID, Dosing Weight 72.727, kg, Start date: 04/16/13 19:30:00, Duration: 30 day, Stop date: 05/16/13 17:00:00Sa me as: [place] lacosamide 2013-0 Yes 100 mg = 1 M emoria 100 MG Oral 2-27 tab, BID, l Tablet 14:54: 0 [place] [Vimpat] 00 Refill(s) lacosamide 2013-0 Yes 100 mg = 1 M emoria 100 MG Oral 2-27 tab, BID, l Tablet 14:54: 0 [place] [Vimpat] 00 Refill(s) lacosamide 2013-0 Yes 100 mg = 1 M emoria 100 MG Oral 2-27 tab, BID, l Tablet 14:54: 0 [place] [Vimpat] 00 Refill(s) lacosamide 2013-0 Yes 100 mg = 1 M emoria 100 MG Oral 2-27 tab, BID, l Tablet 14:54: 0 [place] [Vimpat] 00 Refill(s) lacosamide 2013-0 Yes 100 mg = 1 M emoria 100 MG Oral 2-27 tab, BID, l Tablet 14:54: 0 [place] [Vimpat] 00 Refill(s) lacosamide 2013-0 Yes 100 mg = 1 M emoria 100 MG Oral 2-27 tab, BID, l Tablet 14:54: 0 [place] [Vimpat] 00 Refill(s) Tylenol 2013- No 650 mg, 2 Memor ia 2-27 tab, l 13:36: Route: PO, [place] 00 Drug form: TAB, Q4H, Dosing Weight 72.727, kg, PRN Pain, Start date: 04/15/13 7:36:00, Duration: 30 day, Stop date: 05/15/13 7:35:00Do not exceed 4 gm/day. (Same as: Tylenol) Tylenol 2013-0 No 650 mg, 2 Memor ia 2-27 tab, l 13:36: Route: PO, [place] 00 Drug form: TAB, Q4H, Dosing Weight 72.727, kg, PRN Pain, Start date: 04/15/13 7:36:00, Duration: 30 day, Stop date: 05/15/13 7:35:00Do not exceed 4 gm/day. (Same as: Tylenol) Tylenol 2013-0 No 650 mg, 2 Memor ia 2-27 tab, l 13:36: Route: PO, [place] 00 Drug form: TAB, Q4H, Dosing Weight 72.727, kg, PRN Pain, Start date: 04/15/13 7:36:00, Duration: 30 day, Stop date: 05/15/13 7:35:00Do not exceed 4 gm/day. (Same as: Tylenol) Tylenol 2013-0 No 650 mg, 2 Memor ia 2-27 tab, l 13:36: Route: PO, Drug form: TAB, Q4H, Dosing Weight 72.727, kg, PRN Pain, Start date: 04/15/13 7:36:00, Duration: 30 day, Stop date: 05/15/13 7:35:00Do not exceed 4 gm/day. (Same as: Tylenol) Tylenol 2013-0 No 650 mg, 2 Memor ia 2-27 tab, l 13:36: Route: PO, [place] 00 Drug form: TAB, Q4H, Dosing Weight 72.727, kg, PRN Pain, Start date: 04/15/13 7:36:00, Duration: 30 day, Stop date: 05/15/13 7:35:00Do not exceed 4 gm/day. (Same as: Tylenol) Tylenol 2013-0 No 650 mg, 2 Memor ia 2-27 tab, l 13:36: Route: PO, [place] 00 Drug form: TAB, Q4H, Dosing Weight 72.727, kg, PRN Pain, Start date: 04/15/13 7:36:00, Duration: 30 day, Stop date: 05/15/13 7:35:00Do not exceed 4 gm/day. (Same as: Tylenol) Lamictal No 200 mg, Memori a 2- Route: PO, l 15:00: Daily, [place] 00 Dosing Weight 72.727, kg, Start date: 04/14/13 9:00:00, Duration: 30 day, Stop date: 05/13/13 9:00:00 multivitami No 1 tab, [place] denisse [place] with 04-14 Route: PO, l minerals 15:00: Drug Form: [place] 00 TAB, Dosing Weight 72.727, kg, Daily, Start date: 04/14/13 9:00:00, Duration: 30 day, Stop date: 05/13/13 9:00:00([facility] as:Thera-M , Theragran- M) Give with food. Sertraline No 25 mg, 1 Mem oria 2-26 tab, l 15:00: Route: PO, [place] 00 Drug form: TAB, Daily, Dosing Weight 72.727, kg, Start date: 04/14/13 9:00:00, Duration: 30 day, Stop date: 05/13/13 9:00:00([facility] as: Zoloft) LaMICtal XR No 100 mg, 1 M emoria 2-26 tab, l 15:00: Route: PO, [place] 00 Drug form: ERTAB, Daily, Dosing Weight 72.727, kg, Start date: 04/14/13 9:00:00, Stop date: 05/13/13 9:00:00Sam e as: LaMICtal XR Lamictal No 200 mg, Memori a 2-26 Route: PO, l 15:00: Daily, [place] 00 Dosing Weight 72.727, kg, Start date: 04/14/13 9:00:00, Duration: 30 day, Stop date: 05/13/13 9:00:00 multivitami 2013-0 No 1 tab, [place] den[place] with 2 Route: PO, l minerals 15:00: Drug Form: [place] 00 TAB, Dosing Weight 72.727, kg, Daily, Start date: 04/14/13 9:00:00, Duration: 30 day, Stop date: 05/13/13 9:00:00(Sa me as:Thera-M , Theragran- M) Give with food. Sertraline 2013-0 No 25 mg, 1 Mem oria 2-26 tab, l 15:00: Route: PO, [place] 00 Drug form: TAB, Daily, Dosing Weight 72.727, kg, Start date: 04/14/13 9:00:00, Duration: 30 day, Stop date: 05/13/13 9:00:00( me as: Zoloft) LaMICtal XR 2013-0 No 100 mg, 1 M emoria 2-26 tab, l 15:00: Route: PO, [place] 00 Drug form: ERTAB, Daily, Dosing Weight 72.727, kg, Start date: 04/14/13 9:00:00, Stop date: 05/13/13 9:00:00Sam e as: LaMICtal XR Lamictal 2013-0 No 200 mg, Memori a 2-26 Route: PO, l 15:00: Daily, Dosing Weight 72.727, kg, Start date: 04/14/13 9:00:00, Duration: 30 day, Stop date: 05/13/13 9:00:00 multivitami 2013-0 No 1 tab, [place] with 2-26 Route: PO, l minerals 15:00: Drug Form: [place] 00 TAB, Dosing Weight 72.727, kg, Daily, Start date: 04/14/13 9:00:00, Duration: 30 day, Stop date: 05/13/13 9:00:00(Sa me as:Thera-M , Theragran- M) Give with food. Sertraline 2013-0 No 25 mg, 1 Mem oria 2-26 tab, l 15:00: Route: PO, [place] 00 Drug form: TAB, Daily, Dosing Weight 72.727, kg, Start date: 04/14/13 9:00:00, Duration: 30 day, Stop date: 05/13/13 9:00:00(Sa me as: Zoloft) LaMICtal XR 2013-0 No 100 mg, 1 M emoria 2-26 tab, l 15:00: Route: PO, [place] 00 Drug form: ERTAB, Daily, Dosing Weight 72.727, kg, Start date: 04/14/13 9:00:00, Stop date: 05/13/13 9:00:00Sam e as: LaMICtal XR Lamictal 2013-0 No 200 mg, Memori a 2- Route: PO, l 15:00: Daily, [place] 00 Dosing Weight 72.727, kg, Start date: 04/14/13 9:00:00, Duration: 30 day, Stop date: 05/13/13 9:00:00 multivitami 2013-0 No 1 tab, [place] with 2-26 Route: PO, l minerals 15:00: Drug Form: [place] 00 TAB, Dosing Weight 72.727, kg, Daily, Start date: 04/14/13 9:00:00, Duration: 30 day, Stop date: 05/13/13 9:00:00([facility] as:Thera-M , Theragran- M) Give with food. Sertraline 2013-0 No 25 mg, 1 Mem oria 2-26 tab, l 15:00: Route: PO, [place] 00 Drug form: TAB, Daily, Dosing Weight 72.727, kg, Start date: 04/14/13 9:00:00, Duration: 30 day, Stop date: 05/13/13 9:00:00([facility] as: Zoloft) LaMICtal XR 2013-0 No 100 mg, 1 M emoria 2-26 tab, l 15:00: Route: PO, [place] 00 Drug form: ERTAB, Daily, Dosing Weight 72.727, kg, Start date: 04/14/13 9:00:00, Stop date: 05/13/13 9:00:00Sam e as: LaMICtal XR Lamictal 2013-0 No 200 mg, Memori a 2-26 Route: PO, l 15:00: Daily, [place] 00 Dosing Weight 72.727, kg, Start date: 04/14/13 9:00:00, Duration: 30 day, Stop date: 05/13/13 9:00:00 multivitami 2013-0 No 1 tab, [place] den[place] with 2-26 Route: PO, l minerals 15:00: Drug Form: [place] 00 TAB, Dosing Weight 72.727, kg, Daily, Start date: 04/14/13 9:00:00, Duration: 30 day, Stop date: 05/13/13 9:00:00(Sa me as:Thera-M , Theragran- M) Give with food. Sertraline 2013- No 25 mg, 1 Mem oria 2-26 tab, l 15:00: Route: PO, [place] 00 Drug form: TAB, Daily, Dosing Weight 72.727, kg, Start date: 04/14/13 9:00:00, Duration: 30 day, Stop date: 05/13/13 9:00:00( me as: Zoloft) LaMICtal XR 2013- No 100 mg, 1 M emoria 2-26 tab, l 15:00: Route: PO, [place] 00 Drug form: ERTAB, Daily, Dosing Weight 72.727, kg, Start date: 04/14/13 9:00:00, Stop date: 05/13/13 9:00:00Sam e as: LaMICtal XR Lamictal 2013- No 200 mg, Memori a 2-26 Route: PO, l 15:00: Daily, Dosing Weight 72.727, kg, Start date: 04/14/13 9:00:00, Duration: 30 day, Stop date: 05/13/13 9:00:00 multivitami 2013-0 No 1 tab, [place] den[place] with 2-26 Route: PO, l minerals 15:00: Drug Form: [place] 00 TAB, Dosing Weight 72.727, kg, Daily, Start date: 04/14/13 9:00:00, Duration: 30 day, Stop date: 05/13/13 9:00:00(Sa me as:Thera-M , Theragran- M) Give with food. Sertraline 2013- No 25 mg, 1 Mem oria 2-26 tab, l 15:00: Route: PO, [place] 00 Drug form: TAB, Daily, Dosing Weight 72.727, kg, Start date: 04/14/13 9:00:00, Duration: 30 day, Stop date: 05/13/13 9:00:00([facility] as: Zoloft) LaMICtal XR No 100 mg, 1 M emoria 2-26 tab, l 15:00: Route: PO, [place] 00 Drug form: ERTAB, Daily, Dosing Weight 72.727, kg, Start date: 04/14/13 9:00:00, Stop date: 05/13/13 9:00:00Sam e as: LaMICtal XR Ascorbic No Daily, 0 Memor ia Acid / Beta 2-25 Refill(s) l Carotene / 15:37: [place] cuprous 00 oxide / Lutein / sodium selenate / Vitamin E / Zinc Oxide Calcium, No 2 tab, PO, Mem oria Magnesium 2-25 BID, # 100 l and 15:37: tab, 0 [place] Phosphorus 00 Refill(s) oral tablet Ascorbic No Daily, 0 Memor ia Acid / Beta 2-25 Refill(s) l Carotene / 15:37: [place] cuprous 00 oxide / Lutein / sodium selenate / Vitamin E / Zinc Oxide Calcium, No 2 tab, PO, Mem oria Magnesium 2-25 BID, # 100 l and 15:37: tab, 0 [place] Phosphorus 00 Refill(s) oral tablet Ascorbic No Daily, 0 Memor ia Acid / Beta 2-25 Refill(s) l Carotene / 15:37: [place] cup[place] 00 oxide / Lutein / sodium selenate / Vitamin E / Zinc Oxide Calcium, No 2 tab, PO, Mem oria Magnesium 2-25 BID, # 100 l and 15:37: tab, 0 [place] Phosphorus 00 Refill(s) oral tablet Ascorbic No Daily, 0 Memor ia Acid / Beta 2-25 Refill(s) l Carotene / 15:37: [place] cuprous 00 oxide / Lutein / sodium selenate / Vitamin E / Zinc Oxide Calcium, No 2 tab, PO, Mem oria Magnesium 2-25 BID, # 100 l and 15:37: tab, 0 [place] Phosphorus 00 Refill(s) oral tablet Ascorbic No Daily, 0 Memor ia Acid / Beta 2-25 Refill(s) l Carotene / 15:37: [place] cup[place] 00 oxide / Lutein / sodium selenate / Vitamin E / Zinc Oxide Calcium, No 2 tab, PO, Mem oria Magnesium 2-25 BID, # 100 l and 15:37: tab, 0 [place] Phosphorus 00 Refill(s) oral tablet Ascorbic No Daily, 0 Memor ia Acid / Beta 2-25 Refill(s) l Carotene / 15:37: [place] cup[place] 00 oxide / Lutein / sodium selenate / Vitamin E / Zinc Oxide Calcium, No 2 tab, PO, Mem oria Magnesium 2-25 BID, # 100 l and 15:37: tab, 0 [place] Phosphorus 00 Refill(s) oral tablet LaMICtal XR [...] 9:00:00, Duration: 30 day, Stop date: 04/11/13 9:00:00([facility] as: Zoloft) LaMICtal XR No Dragan 600 mg, 6 [...] 9:00:00, Duration: 30 day, Stop date: 04/11/13 9:00:00( me as: Zoloft) LaMICtal XR 2013-0 No Dragan 600 mg, 6 Memoria 1-25 Kip tab, l 15:00: [place] Route: PO, H ermann 00 Drug form: ERTAB, Daily, Dosing Weight 79.545, kg, Start date: 03/13/13 9:00:00, Duration: 30 day, Stop date: 04/11/13 9:00:00Sam e as: LaMICtal XR sertraline 2013-0 No Dragan 25 mg, 1 Memoria 1-25 Kip tab, l 15:00: [place] Route: PO, H ermann 00 Drug form: TAB, Daily, Dosing Weight 79.545, kg, Start date: 03/13/13 9:00:00, Duration: 30 day, Stop date: 04/11/13 9:00:00([facility] as: Zoloft) LaMICtal XR 2013-0 No Dragan 600 mg, 6 Memoria 1-25 Kip tab, l 15:00: [place] Route: PO, H ermann 00 Drug form: ERTAB, Daily, Dosing Weight 79.545, kg, Start date: 03/13/13 9:00:00, Duration: 30 day, Stop date: 04/11/13 9:00:00Sam e as: LaMICtal XR sertraline 0 No Dragan 25 mg, 1 Memoria 1-25 Kip tab, l 15:00: [place] Route: PO, H ermann 00 Drug form: TAB, Daily, Dosing Weight 79.545, kg, Start date: 03/13/13 9:00:00, Duration: 30 day, Stop date: 04/11/13 9:00:00([facility] as: Zoloft) LaMICtal XR 2013-0 No Dragan 600 mg, 6 Memoria 1-25 [...] 9:00:00, Duration: 30 day, Stop date: 04/11/13 9:00:00([facility] as: Zoloft) LaMICtal XR No Dragan 600 mg, 6 [...] 9:00:00, Duration: 30 day, Stop date: 04/11/13 9:00:00([facility] as: Zoloft) cephalexin Yes [facility] 500 mg = 1 Memoria 500 mg oral 1-25 n [place] tab, PO, l tablet 13:03: BID, # 14 Jim n 00 tab, 0 Refill(s) lacosamide Yes [facility] 100 mg = 1 [facility] 100 mg oral 1-25 n [place] tab, PO, l tablet 13:03: BID, # 60 Jim n 00 tab, 2 Refill(s) cephalexin Yes [facility] 500 mg = 1 [facility] 500 mg oral 1-25 n [place] tab, PO, l tablet 13:03: BID, # 14 Jim n 00 tab, 0 Refill(s) lacosamide Yes [facility] 100 mg = 1 [facility] 100 mg oral 1-25 n [place] tab, PO, l tablet 13:03: BID, # 60 Jim n 00 tab, 2 Refill(s) cephalexin Yes [facility] 500 mg = 1 [facility] 500 mg oral 1-25 n [place] tab, PO, l tablet 13:03: BID, # 14 Jim n 00 tab, 0 Refill(s) lacosamide Yes [facility] 100 mg = 1 [facility] 100 mg oral 1-25 n [place] tab, PO, l tablet 13:03: BID, # 60 Jim n 00 tab, 2 Refill(s) cephalexin Yes [facility] 500 mg = 1 [facility] 500 mg oral 1-25 n [place] tab, PO, l tablet 13:03: BID, # 14 Jim n 00 tab, 0 Refill(s) lacosamide Yes [facility] 100 mg = 1 [facility] 100 mg oral 1-25 n [place] tab, PO, l tablet 13:03: BID, # 60 Jim n 00 tab, 2 Refill(s) cephalexin Yes [facility] 500 mg = 1 [facility] 500 mg oral 1-25 n [place] tab, PO, l tablet 13:03: BID, # 14 Jim n 00 tab, 0 Refill(s) lacosamide Yes [facility] 100 mg = 1 [facility] 100 mg oral 1-25 n [place] tab, PO, l tablet 13:03: BID, # 60 Jim n 00 tab, 2 Refill(s) cephalexin Yes [place] 500 mg = 1 [...] Stop date: 04/11/13 9:00:00Sam e as: Vimpat Vimpat 2014-0 No Dragan 100 mg, 1 M emoria -24 Kip tab, l 23:00: Morris Route: PO, [place] 00 Drug form: TAB, BID, Dosing Weight 79.545, kg, Start date: 03/12/13 17:00:00, Duration: 30 day, Stop date: 04/11/13 9:00:00Sam e as: Vimpat Vimpat 2014-0 No Dragan 100 mg, 1 M emoria -24 Kip tab, l 23:00: Morris Route: PO, [place] 00 Drug form: TAB, BID, Dosing Weight 79.545, kg, Start date: 03/12/13 17:00:00, Duration: 30 day, Stop date: 04/11/13 9:00:00Sam e as: Vimpat Vimpat 2014-0 No Dragan 100 mg, 1 M emoria -24 Kip tab, l 23:00: Morris Route: PO, [place] 00 Drug form: TAB, BID, Dosing Weight 79.545, kg, Start date: 03/12/13 17:00:00, Duration: 30 day, Stop date: 04/11/13 9:00:00Sam e as: Vimpat Vimpat 2014-0 No Dragan 100 mg, 1 M emoria -24 Kip tab, l 23:00: [place] Route: PO, [place] 00 Drug form: TAB, BID, Dosing Weight 79.545, kg, Start date: 03/12/13 17:00:00, Duration: 30 day, Stop date: 04/11/13 9:00:00Sam e as: Vimpat Vimpat 2014-0 No Dragan 100 mg, 1 M emoria -24 Kip tab, l 23:00: [place] Route: PO, H [place] 00 Drug form: TAB, BID, Dosing Weight 79.545, kg, Start date: 03/12/13 17:00:00, Duration: 30 day, Stop date: 04/11/13 9:00:00Sam e as: Vimpat senna 8.6 No Dragan 8.6 mg, 1 Memoria mg oral 1-24 Kip tab, l tablet 19:24: [place] Route: PO, [place] 00 Drug Form: TAB, Dosing Weight 79.545, kg, Bedtime, PRN Constipati on, Start date: 03/12/13 13:24:00, Duration: 30 day, Stop date: 04/11/13 13:23:00(S kwame as: Senokot) docusate No Dragan 50 mg, 5 Memoria 1-24 Kip mL, Route: l 19:24: [place] PO, Drug [place] form: LIQ, BID, Dosing Weight 79.545, kg, PRN Constipati on, Start date: 03/12/13 13:24:00, Duration: 30 day, Stop date: 04/11/13 13:23:00(S kwame as: Colace) senna 8.6 No Dragan 8.6 mg, 1 Memoria mg oral 1-24 Kip tab, l tablet 19:24: [place] Route: PO, K[place] 00 Drug Form: TAB, Dosing Weight 79.545, kg, Bedtime, PRN Constipati on, Start date: 03/12/13 13:24:00, Duration: 30 day, Stop date: 04/11/13 13:23:00(S kwame as: Senokot) docusate No Dragan 50 mg, 5 Memoria 1-24 Kip mL, Route: l 19:24: [place] PO, Drug [place] form: LIQ, BID, Dosing Weight 79.545, kg, PRN Constipati on, Start date: 03/12/13 13:24:00, Duration: 30 day, Stop date: 04/11/13 13:23:00(S kwame as: Colace) senna 8.6 0 No Dragan 8.6 mg, 1 Memoria mg oral 1-24 Kip tab, l tablet 19:24: [place] Route: PO, K[place] 00 Drug Form: TAB, Dosing Weight 79.545, kg, Bedtime, PRN Constipati on, Start date: 03/12/13 13:24:00, Duration: 30 day, Stop date: 04/11/13 13:23:00(S kwame as: Senokot) docusate No Dragan 50 mg, 5 Memoria 1-24 Kip mL, Route: l 19:24: [place] PO, Drug [place] form: LIQ, BID, Dosing Weight 79.545, kg, PRN Constipati on, Start date: 03/12/13 13:24:00, Duration: 30 day, Stop date: 04/11/13 13:23:00(S kwame as: Colace) senna 8.6 No Dragan 8.6 mg, 1 Memoria mg oral 1-24 Kip tab, l tablet 19:24: [place] Route: PO, [place] 00 Drug Form: TAB, Dosing Weight 79.545, kg, Bedtime, PRN Constipati on, Start date: 03/12/13 13:24:00, Duration: 30 day, Stop date: 04/11/13 13:23:00(S kwame as: Senokot) docusate No Dragan 50 mg, 5 Memoria 1-24 Kip mL, Route: l 19:24: [place] PO, Drug [place] form: LIQ, BID, Dosing Weight 79.545, kg, PRN Constipati on, Start date: 03/12/13 13:24:00, Duration: 30 day, Stop date: 04/11/13 13:23:00(S kwame as: Colace) senna 8.6 No Dragan 8.6 mg, 1 Memoria mg oral 1-24 Kip tab, l tablet 19:24: [place] Route: PO, [place] 00 Drug Form: TAB, Dosing Weight 79.545, kg, Bedtime, PRN Constipati on, Start date: 03/12/13 13:24:00, Duration: 30 day, Stop date: 04/11/13 13:23:00(S kwame as: Senokot) docusate No Dragan 50 mg, 5 Memoria 1-24 Kip mL, Route: l 19:24: [place] PO, Drug [place] form: LIQ, BID, Dosing Weight 79.545, kg, PRN Constipati on, Start date: 03/12/13 13:24:00, Duration: 30 day, Stop date: 04/11/13 13:23:00(S kwame as: Colace) senna 8.6 2013-0 No Dragan 8.6 mg, 1 Memoria mg oral 1-24 Kip tab, l tablet 19:24: [place] Route: PO, [place] 00 Drug Form: TAB, Dosing Weight 79.545, kg, Bedtime, PRN Constipati on, Start date: 03/12/13 13:24:00, Duration: 30 day, Stop date: 04/11/13 13:23:00(S kwame as: Senokot) docusate 2013-0 No Dragan 50 mg, 5 Memoria 1-24 Kip mL, Route: l 19:24: [place] PO, Drug [place] form: LIQ, BID, Dosing Weight 79.545, kg, PRN Constipati on, Start date: 03/12/13 13:24:00, Duration: 30 day, Stop date: 04/11/13 13:23:00(S kwame as: Colace) Sodium 2013-0 No Dragan 1,000 mL, M emoria Chloride 1-24 Kip Rate: 75 l 0.9% IV 19:23: Morris ml/hr, He r[place] 1,000 mL 00 Infuse over: 13.3 hr, Route: IV, Dosing Weight 79.545 kg, Total Volume: 1,000, Start date: 03/12/13 13:23:00, Duration: 30 day, Stop date: 04/11/13 13:22:00 Sodium 2013-0 No Dragan 1,000 mL, M emoria Chloride 1-24 Kip Rate: 75 l 0.9% IV 19:23: [place] ml/hr, [place] 1,000 mL 00 Infuse over: 13.3 hr, Route: IV, Dosing Weight 79.545 kg, Total Volume: 1,000, Start date: 03/12/13 13:23:00, Duration: 30 day, Stop date: 04/11/13 13:22:00 Sodium 2014-0 No Dragan 1,000 mL, M emoria Chloride 1-24 Kip Rate: 75 l 0.9% IV 19:23: [place] ml/hr, [place] 1,000 mL 00 Infuse over: 13.3 hr, Route: IV, Dosing Weight 79.545 kg, Total Volume: 1,000, Start date: 03/12/13 13:23:00, Duration: 30 day, Stop date: 04/11/13 13:22:00 Sodium 2014-0 No Dragan 1,000 mL, M emoria Chloride 1-24 Kip Rate: 75 l 0.9% IV 19:23: [place] ml/hr, [place] 1,000 mL 00 Infuse over: 13.3 hr, Route: IV, Dosing Weight 79.545 kg, Total Volume: 1,000, Start date: 03/12/13 13:23:00, Duration: 30 day, Stop date: 04/11/13 13:22:00 Sodium 2013-0 No Dragan 1,000 mL, M emoria Chloride 1-24 Kip Rate: 75 l 0.9% IV 19:23: [place] ml/hr, [place] 1,000 mL 00 Infuse over: 13.3 hr, Route: IV, Dosing Weight 79.545 kg, Total Volume: 1,000, Start date: 03/12/13 13:23:00, Duration: 30 day, Stop date: 04/11/13 13:22:00 Sodium 2013-0 No Dragan 1,000 mL, M emoria Chloride 1-24 Kip Rate: 75 l 0.9% IV 19:23: [place] ml/hr, [place] 1,000 mL 00 Infuse over: 13.3 hr, Route: IV, Dosing Weight 79.545 kg, Total Volume: 1,000, Start date: 03/12/13 13:23:00, Duration: 30 day, Stop date: 04/11/13 13:22:00 ondansetron 2013-0 No Willem De 4 mg, 2 Memoria 1-24 Sanders mL, Route: l 17:57: IVP, Drug [place] 00 form: INJ, ONCE, Dosing Weight 79.545, kg, PRN Nausea & Vomiting, Start date: 03/12/13 11:57:00(S kwame as: Zofran) flumazenil 2013-0 No Willem De 0.2 mg, 2 Memoria 1-24 Sanders mL, Route: l 17:57: IVP, Drug [place] 00 form: INJ, PRN, Dosing Weight 79.545, kg, PRN Benzodiaze pine Reversal, Initial dose, Start date: 03/12/13 11:57:00, Duration: 30 day, Stop date: 04/11/13 11:56:00(S kwame as: Romazicon) hydromorpho No Willem De 0.5 mg, Memoria ne 1-24 Sanders 0.25 mL, l 17:57: Route: [place] 00 IVP, Drug form: INJ, Q5Min, Dosing Weight 79.545, kg, PRN Pain Score 7-10, Start date: 03/12/13 11:57:00, Duration: 4 doses or times, Stop date: 03/13/13 0:00:00( me as: Dilaudid) naloxone No Willem De 0.04 mg, Memoria 1-24 Sanders 0.1 mL, l 17:57: Route: [place] 00 IVP, Drug form: INJ, Q2MIN, Dosing Weight 79.545, kg, PRN Narcotic Reversal, Start date: 03/12/13 11:57:00, Duration: 8 doses or times, Stop date: 03/13/13 0:00:00( me as: Narcan) labetalol 0 No Willem De 10 mg, 2 Memoria 1-24 Sanders mL, Route: l 17:57: IVP, Drug form: INJ, Q5Min, Dosing Weight 79.545, kg, PRN Elevated BP, Start date: 03/12/13 11:57:00, Duration: 5 doses or times, Stop date: 03/13/13 0:00:00 hydrALAZINE 0 No Willem De 10 mg, 0.5 Memoria 1-24 Sanders mL, Route: l 17:57: IVP, Drug form: INJ, Q20Min, Dosing Weight 79.545, kg, PRN Elevated BP, Start date: 03/12/13 11:57:00, Duration: 2 doses or times, Stop date: 03/13/13 0:00:00(Sa me as: Apresoline ) Push over 5 minutes ondansetron No [place] De 4 mg, 2 Memoria 1-24 Sanders mL, Route: l 17:57: IVP, Drug form: INJ, ONCE, Dosing Weight 79.545, kg, PRN Nausea & Vomiting, Start date: 03/12/13 11:57:00(S kwame as: Zofran) flumazenil No Willem Ed 0.2 mg, 2 Memoria 1-24 Sanders mL, Route: l 17:57: IVP, Drug form: INJ, PRN, Dosing Weight 79.545, kg, PRN Benzodiaze pine Reversal, Initial dose, Start date: 03/12/13 11:57:00, Duration: 30 day, Stop date: 04/11/13 11:56:00(S kwame as: Romazicon) hydromorpho No Willem De 0.5 mg, Memoria ne 1-24 Sanders 0.25 mL, l 17:57: Route: IVP, Drug form: INJ, Q5Min, Dosing Weight 79.545, kg, PRN Pain Score 7-10, Start date: 03/12/13 11:57:00, Duration: 4 doses or times, Stop date: 03/13/13 0:00:00(Sa me as: Dilaudid) naloxone No Willem De 0.04 mg, Memoria 1-24 Sanders 0.1 mL, l 17:57: Route: IVP, Drug form: INJ, Q2MIN, Dosing Weight 79.545, kg, PRN Narcotic Reversal, Start date: 03/12/13 11:57:00, Duration: 8 doses or times, Stop date: 03/13/13 0:00:00(Sa me as: Narcan) labetalol No Willem De [...] 2 doses or times, Stop date: 03/13/13 0:00:00(Sa me as: Apresoline ) Push over 5 minutes ondansetron No Willem De 4 mg, 2 [...] 1-24 Sanders 0.25 mL, l 17:57: Route: [place] 00 IVP, Drug form: INJ, Q5Min, Dosing Weight 79.545, kg, PRN Pain Score 7-10, Start date: 03/12/13 11:57:00, Duration: 4 doses or times, Stop date: 03/13/13 0:00:00(Sa me as: Dilaudid) naloxone No Willem De 0.04 mg, Memoria 1-24 Sanders 0.1 mL, l 17:57: Route: [place] 00 IVP, Drug form: INJ, Q2MIN, Dosing Weight 79.545, kg, PRN Narcotic Reversal, Start date: 03/12/13 11:57:00, Duration: 8 doses or times, Stop date: 03/13/13 0:00:00([facility] as: Narcan) labetalol No Willem De 10 [...] 2 doses or times, Stop date: 03/13/13 0:00:00([facility] as: Apresoline ) Push over 5 minutes ondansetron No Willem De 4 mg, 2 [...] date: 04/11/13 11:56:00(S kwame as: Romazicon) hydromorpho 2014-0 No Willem De 0.5 mg, Memoria ne 1-24 Sanders 0.25 mL, l 17:57: Route: [place] 00 IVP, Drug form: INJ, Q5Min, Dosing Weight 79.545, kg, PRN Pain Score 7-10, Start date: 03/12/13 11:57:00, Duration: 4 doses or times, Stop date: 03/13/13 0:00:00(Sa me as: Dilaudid) naloxone No Willem De 0.04 mg, Memoria 1-24 Sanders 0.1 mL, l 17:57: Route: [place] 00 IVP, Drug form: INJ, Q2MIN, Dosing Weight 79.545, kg, PRN Narcotic Reversal, Start date: 03/12/13 11:57:00, Duration: 8 doses or times, Stop date: 03/13/13 0:00:00(Sa me as: Narcan) labetalol No Willem De [...] 2 doses or times, Stop date: 03/13/13 0:00:00(Sa me as: Apresoline ) Push over 5 minutes ondansetron No Willem De 4 mg, 2 [...] 1-24 Sanders 0.25 mL, l 17:57: Route: [place] 00 IVP, Drug form: INJ, Q5Min, Dosing Weight 79.545, kg, PRN Pain Score 7-10, Start date: 03/12/13 11:57:00, Duration: 4 doses or times, Stop date: 03/13/13 0:00:00([facility] as: Dilaudid) naloxone No Willem De 0.04 mg, Memoria 1-24 Sanders 0.1 mL, l 17:57: Route: IVP, Drug form: INJ, Q2MIN, Dosing Weight 79.545, kg, PRN Narcotic Reversal, Start date: 03/12/13 11:57:00, Duration: 8 doses or times, Stop date: 03/13/13 0:00:00([facility] as: Narcan) labetalol No Willem De 10 mg, 2 Memoria 1-24 Sanders mL, Route: l 17:57: IVP, Drug form: INJ, Q5Min, Dosing Weight 79.545, kg, PRN Elevated BP, Start date: 03/12/13 11:57:00, Duration: 5 doses or times, Stop date: 03/13/13 0:00:00 hydrALAZINE 2013-0 No Willem De 10 mg, 0.5 Memoria 1-24 Sanders mL, Route: l 17:57: IVP, Drug form: INJ, Q20Min, Dosing Weight 79.545, kg, PRN Elevated BP, Start date: 03/12/13 11:57:00, Duration: 2 doses or times, Stop date: 03/13/13 0:00:00(Sa me as: Apresoline ) Push over 5 minutes ondansetron No Willem De 4 mg, 2 [...] 1-24 Sanders 0.25 mL, l 17:57: Route: [place] 00 IVP, Drug form: INJ, Q5Min, Dosing Weight 79.545, kg, PRN Pain Score 7-10, Start date: 03/12/13 11:57:00, Duration: 4 doses or times, Stop date: 03/13/13 0:00:00(Sa me as: Dilaudid) naloxone No Willem De 0.04 mg, Memoria 1-24 Sanders 0.1 mL, l 17:57: Route: [place] 00 IVP, Drug form: INJ, Q2MIN, Dosing Weight 79.545, kg, PRN Narcotic Reversal, Start date: 03/12/13 11:57:00, Duration: 8 doses or times, Stop date: 03/13/13 0:00:00(Sa me as: Narcan) labetalol No Willem De [...] 2 doses or times, Stop date: 03/13/13 0:00:00(Sa nv as: Apresoline ) Push over 5 minutes [place] No Dragan 1 tab, Memor ia 10/325 oral 1-24 Kip Route: PO, l tablet 17:37: Morris Drug Form: [place] 00 TAB, Dosing Weight 79.545, kg, Q4H, PRN Pain, Start date: 03/12/13 11:37:00, Duration: 30 day, Stop date: 04/11/13 11:36:00Do not exceed 4gm/day of acetaminop hen. (Same as: [place] [address]) [place] No Dragan 1 tab, Memor ia 10/325 oral 1-24 Kip Route: PO, l tablet 17:37: [place] Drug Form: [place] 00 TAB, Dosing Weight 79.545, kg, Q4H, PRN Pain, Start date: 03/12/13 11:37:00, Duration: 30 day, Stop date: 04/11/13 11:36:00Do not exceed 4gm/day of acetaminop hen. (Same as: [place] [address]) [place] No Dragan 1 tab, Memor ia 10/325 oral 1-24 Kip Route: PO, l tablet 17:37: Morris Drug Form: [place] 00 TAB, Dosing Weight 79.545, kg, Q4H, PRN Pain, Start date: 03/12/13 11:37:00, Duration: 30 day, Stop date: 04/11/13 11:36:00Do not exceed 4gm/day of acetaminop hen. (Same as: [place] [address]) [place] No Dragan 1 tab, Memor ia [address] oral -24 Kip Route: PO, l tablet 17:37: [place] Drug Form: [place] 00 TAB, Dosing Weight 79.545, kg, Q4H, PRN Pain, Start date: 03/12/13 11:37:00, Duration: 30 day, Stop date: 04/11/13 11:36:00Do not exceed 4gm/day of acetaminop hen. (Same as: [place] 325) [place] No Dragan 1 tab, Memor ia [address] oral 03-12 Kip Route: PO, l tablet 17:37: [place] Drug Form: [place] 00 TAB, Dosing Weight 79.545, kg, Q4H, PRN Pain, Start date: 03/12/13 11:37:00, Duration: 30 day, Stop date: 04/11/13 11:36:00Do not exceed 4gm/day of acetaminop hen. (Same as: [place] 325) [place] No Dragan 1 tab, Memor ia 325 oral 03-12 Kip Route: PO, l tablet 17:37: [place] Drug Form: [place] 00 TAB, Dosing Weight 79.545, kg, Q4H, PRN Pain, Start date: 03/12/13 11:37:00, Duration: 30 day, Stop date: 04/11/13 11:36:00Do not exceed 4gm/day of acetaminop hen. (Same as: [place] 325) Milk of No Dragan 30 mL, Mem oria [place] 03-12 Kip Route: PO, l 17:34: [place] Drug Form: [place] 00 SUSP, Dosing Weight 79.545, kg, Q6H, PRN Constipati on, Start date: 03/12/13 11:34:00, Duration: 30 day, Stop date: 04/11/13 11:33:00(S kwame as: Milk of [place], MOM) Milk of No Dragan 30 mL, Mem oria [place] -24 Kip Route: PO, l 17:34: [place] Drug Form: [place] 00 SUSP, Dosing Weight 79.545, kg, Q6H, PRN Constipati on, Start date: 03/12/13 11:34:00, Duration: 30 day, Stop date: 04/11/13 11:33:00(S kwame as: Milk of [place], MOM) Milk of No Dragan 30 mL, Mem oria [place] 03-12 Kip Route: PO, l 17:34: [place] Drug Form: [place] 00 SUSP, Dosing Weight 79.545, kg, Q6H, PRN Constipati on, Start date: 03/12/13 11:34:00, Duration: 30 day, Stop date: 04/11/13 11:33:00(S kwame as: Milk of [place]es[place], MOM) Milk of No Dragan 30 mL, Mem oria [place] 03-12 Kip Route: PO, l 17:34: [place] Drug Form: [place] 00 SUSP, Dosing Weight 79.545, kg, Q6H, PRN Constipati on, Start date: 03/12/13 11:34:00, Duration: 30 day, Stop date: 04/11/13 11:33:00(S kwame as: Milk of Magnesia, MOM) Milk of No Dragan 30 mL, Mem oria [place] 03-12 Kip Route: PO, l 17:34: [place] Drug Form: [place] 00 SUSP, Dosing Weight 79.545, kg, Q6H, PRN Constipati on, Start date: 03/12/13 11:34:00, Duration: 30 day, Stop date: 04/11/13 11:33:00(S kwame as: Milk of [place]es[place], MOM) Milk of No Dragan 30 mL, Mem oria [place] 03-12 Kip Route: PO, l 17:34: [place] Drug Form: [place] 00 SUSP, Dosing Weight 79.545, kg, Q6H, PRN Constipati on, Start date: 03/12/13 11:34:00, Duration: 30 day, Stop date: 04/11/13 11:33:00(S kwame as: Milk of Magnesia, MOM) cefepime No [place] 2 gm, Memoria 03-12 Cristian Route: l 15:42: IVPB, Drug [place] 00 form: INJ, ABXQ8H, Dosing Weight 79.545, kg, (CrCl >/= 50 ml/min, [employer] infection or neutropeni c fever), Start date: 03/12/13 9:42:00, Duration: 30 day, Stop date: 04/11/13 1:42:00(Sa me as: Maxipime) cefepime 0 No [place] 2 gm, Memoria 1-24 Cristian Route: l 15:42: IVPB, Drug [place] 00 form: INJ, ABXQ8H, Dosing Weight 79.545, kg, (CrCl >/= 50 ml/min, [employer] infection or neutropeni c fever), Start date: 03/12/13 9:42:00, Duration: 30 day, Stop date: 04/11/13 1:42:00(Sa me as: Maxipime) cefepime 0 No [place] 2 gm, Memoria 1 Cristian Route: l 15:42: IVPB, Drug [place] 00 form: INJ, ABXQ8H, Dosing Weight 79.545, kg, (CrCl >/= 50 ml/min, [employer] infection or neutropeni c fever), Start date: 03/12/13 9:42:00, Duration: 30 day, Stop date: 04/11/13 1:42:00(Sa me as: Maxipime) cefepime 0 No [place] 2 gm, Memoria 1-24 Cristian Route: l 15:42: IVPB, Drug [place] 00 form: INJ, ABXQ8H, Dosing Weight 79.545, kg, (CrCl >/= 50 ml/min, [employer] infection or neutropeni c fever), Start date: 03/12/13 9:42:00, Duration: 30 day, Stop date: 04/11/13 1:42:00(Sa me as: Maxipime) cefepime 2013-0 No [place] 2 gm, Memoria 1-24 Cristian Route: l 15:42: IVPB, Drug [place] 00 form: INJ, ABXQ8H, Dosing Weight 79.545, kg, (CrCl >/= 50 ml/min, [employer] infection or neutropeni c fever), Start date: 03/12/13 9:42:00, Duration: 30 day, Stop date: 04/11/13 1:42:00(Sa me as: Maxipime) cefepime No [place] 2 gm, Memoria 1-24 Cristian Route: l 15:42: IVPB, Drug [place] 00 form: INJ, ABXQ8H, Dosing Weight 79.545, kg, (CrCl >/= 50 ml/min, [employer] infection or neutropeni c fever), Start date: 03/12/13 9:42:00, Duration: 30 day, Stop date: 04/11/13 1:42:00(Sa me as: Maxipime) vancomycin No [place] 1.5 gm, Mem oria + Sodium 1-24 Cristian Route: l Chloride 15:31: IVPB, [place]obi 0.9% IV 250 00 ABXQ8H, mL Dosing Weight 79.545, kg, Start date: 03/12/13 9:31:00, Duration: 30 day, Stop date: 04/11/13 1:31:00(Sa me As: Vancocin) Vancomycin FOR IV SET ONLY vancomycin No [place] 1.5 gm, Mem oria + Sodium 1-24 Cristian Route: l Chloride 15:31: IVPB, [place] 0.9% IV 250 00 ABXQ8H, mL Dosing Weight 79.545, kg, Start date: 03/12/13 9:31:00, Duration: 30 day, Stop date: 04/11/13 1:31:00(Sa me As: Vancocin) Vancomycin FOR IV SET ONLY vancomycin No [place] 1.5 gm, Mem oria + Sodium 1-24 Cristian Route: l Chloride 15:31: IVPB, [place] 0.9% IV 250 00 ABXQ8H, mL Dosing Weight 79.545, kg, Start date: 03/12/13 9:31:00, Duration: 30 day, Stop date: 04/11/13 1:31:00(Sa me As: Vancocin) Vancomycin FOR IV SET ONLY vancomycin No [place] 1.5 gm, Mem oria + Sodium 1-24 Cristian Route: l Chloride 15:31: IVPB, [place] 0.9% IV 250 00 ABXQ8H, mL Dosing Weight 79.545, kg, Start date: 03/12/13 9:31:00, Duration: 30 day, Stop date: 04/11/13 1:31:00(Sa me As: Vancocin) Vancomycin FOR IV SET ONLY vancomycin No [place] 1.5 gm, Mem oria + Sodium 1-24 Cristian Route: l Chloride 15:31: IVPB, [place] 0.9% IV 250 00 ABXQ8H, mL Dosing Weight 79.545, kg, Start date: 03/12/13 9:31:00, Duration: 30 day, Stop date: 04/11/13 1:31:00(Sa me As: Vancocin) Vancomycin FOR IV SET ONLY vancomycin No [place] 1.5 gm, Mem oria + Sodium 1-24 Cristian Route: l Chloride 15:31: IVPB, [place] 0.9% IV 250 00 ABXQ8H, mL Dosing Weight 79.545, kg, Start date: 03/12/13 9:31:00, Duration: 30 day, Stop date: 04/11/13 1:31:00(Sa me As: Vancocin) Vancomycin FOR IV SET ONLY hydrALAZINE No Chris 10 mg, 0.5 Memoria 1-22 r Anam mL, Route: l 23:41: [place] IVP, Drug [place] 00 form: INJ, Q20Min, Dosing Weight 79.545, kg, PRN Elevated BP, Start date: 03/10/13 17:41:00, Duration: 2 doses or times, Stop date: 03/11/13 0:00:00(Sa me as: Apresoline ) Push over 5 minutes naloxone No Chris 0.04 mg, Memoria 1-22 r Anam 0.1 mL, l 23:41: [place] Route: Jim n [...] or times, Stop date: 03/11/13 0:00:00 dexamethaso 2013- No Chris 4 mg, 1 Memoria ne [...] 5 doses or times, Stop date: 03/11/13 0:00:00([facility] as:MORPhin e Sulfate) hydromorpho No Chris [...] diphenhydrA No Chris 12.5 mg, Memoria MINE - r Anam 0.25 mL, l 23:41: [place] [...] promethazin No Chris 6.25 mg, Memoria e - r Anam 0.25 mL, l 23:41: [place] Route: Jim n 00 IVPB, Drug form: INJ, ONCE, Dosing Weight 79.545, kg, PRN Nausea & Vomiting, Start date: 03/10/13 17:41:00Do not give IV push. (Same as: Phenergan) hydrALAZINE No Chris 10 mg, 0.5 Memoria -22 r Anam mL, Route: l 23:41: [place] IVP, Drug [place] 00 form: INJ, Q20Min, Dosing Weight 79.545, kg, PRN Elevated BP, Start date: 03/10/13 17:41:00, Duration: 2 doses or times, Stop date: 03/11/13 0:00:00(Sa me as: Apresoline ) Push over 5 minutes naloxone No Chris 0.04 mg, Memoria -22 r Anam 0.1 mL, l 23:41: [place] Route: Jim n 00 IVP, Drug form: INJ, Q2MIN, Dosing Weight 79.545, kg, PRN Narcotic Reversal, Start date: 03/10/13 17:41:00, Duration: 8 doses or times, Stop date: 03/11/13 0:00:00Sam e as Narcan labetalol No Chris 10 mg, 2 Memoria 1-22 r Anam mL, Route: l 23:41: [place] IVP, Drug [place] form: INJ, Q5Min, Dosing Weight 79.545, kg, PRN Elevated BP, Start date: 03/10/13 17:41:00, Duration: 5 doses or times, Stop date: 03/11/13 0:00:00 dexamethaso 2013- No Chris 4 mg, 1 Memoria ne 1-22 r Anam mL, Route: l 23:41: 2,10E+07 IVP, [facility] 00 form: INJ, ONCE, Dosing Weight 79.545, kg, PRN Nausea & Vomiting, Start date: 03/10/13 17:41:00Co ncentratio n: 4mg/ml morphine No Chris 2 mg, 1 Memoria Sulfate 1-22 r Anam mL, Route: l 23:41: 2,10E+07 IVP, [facility] 00 form: INJ, Q5Min, Dosing Weight 79.545, kg, PRN Pain Score 4-6, Start date: 03/10/13 17:41:00, Duration: 5 doses or times, Stop date: 03/11/13 0:00:00([facility] as:MORPhin e Sulfate) hydromorpho No Chris 0.5 mg, Memoria ne 1-22 r Anam 0.25 mL, l 23:41: [place] Route: Jim n 00 IVP, Drug form: INJ, Q5Min, Dosing Weight 79.545, kg, PRN Pain Score 7-10, Start date: 03/10/13 17:41:00, Duration: 4 doses or times, Stop date: 03/11/13 0:00:00Sam e as: Dilaudid flumazenil 0 No Chris 0.2 mg, 2 Memoria 1-22 r Anam mL, Route: l 23:41: [place] IVP, [facility] 00 form: INJ, PRN, Dosing Weight 79.545, kg, PRN Benzodiaze pine Reversal, Initial dose, Start date: 03/10/13 17:41:00, Duration: 1 day, Stop date: 03/11/13 17:40:00(S kwame as: Romazicon) diphenhydrA No Chris 12.5 mg, Memoria MINE - r Anam 0.25 mL, l 23:41: [place] [...] promethazin No Chris 6.25 mg, Memoria e - r Anam 0.25 mL, l 23:41: [place] Route: Jim n 00 IVPB, Drug form: INJ, ONCE, Dosing Weight 79.545, kg, PRN Nausea & Vomiting, Start date: 03/10/13 17:41:00Do not give IV push. (Same as: Phenergan) hydrALAZINE No Chris 10 mg, 0.5 Memoria - r Anam mL, Route: l 23:41: [place] IVP, [facility] 00 form: INJ, Q20Min, Dosing Weight 79.545, kg, PRN Elevated BP, Start date: 03/10/13 17:41:00, Duration: 2 doses or times, Stop date: 03/11/13 0:00:00(Sa me as: Apresoline ) Push over 5 minutes naloxone No Chris 0.04 mg, Memoria 1-22 r Anam 0.1 mL, l 23:41: [place] Route: Jim n [...] No Chris 4 mg, 1 Memoria ne -22 r Anam mL, Route: l 23:41: [place] IVP, [facility] 00 form: INJ, ONCE, Dosing Weight 79.545, kg, PRN Nausea & Vomiting, Start date: 03/10/13 17:41:00Co ncentratio n: 4mg/ml morphine No Chris 2 mg, 1 Memoria Sulfate -22 r Anam mL, Route: l 23:41: [place] IVP, Drug [facility] [place] 00 form: INJ, Q5Min, Dosing Weight 79.545, kg, PRN Pain Score 4-6, Start date: 03/10/13 17:41:00, Duration: 5 doses or times, Stop date: 03/11/13 0:00:00(Sa me as:MORPhin e Sulfate) hydromorpho No Chris 0.5 mg, Memoria ne 1-22 r Anam 0.25 mL, l 23:41: [place] [...] diphenhydrA No Chris 12.5 mg, Memoria MINE - r Anam 0.25 mL, l 23:41: [place] Route: Jim n 00 IVP, Drug form: INJ, Q6H, Dosing Weight 79.545, kg, PRN Itching, Start date: 03/10/13 17:41:00, Duration: 1 day, Stop date: 03/11/13 12:00:00(S kwame as: Benadryl) ondansetron No Chris 4 mg, 2 Memoria 1-22 r Anam mL, Route: l 23:41: [place] IVP, [facility] 00 form: INJ, ONCE, Dosing Weight 79.545, kg, PRN Nausea & Vomiting, Start date: 03/10/13 17:41:00(S kwame as: Zofran) promethazin No Chris 6.25 mg, Memoria e 1-22 r Anam 0.25 mL, l 23:41: [place] Route: Jim n 00 IVPB, Drug form: INJ, ONCE, Dosing Weight 79.545, kg, PRN Nausea & Vomiting, Start date: 03/10/13 17:41:00Do not give IV push. (Same as: Phenergan) hydrALAZINE No Chris 10 mg, 0.5 Memoria 1-22 r Anam mL, Route: l 23:41: [place] IVP, Drug [facility] 00 form: INJ, Q20Min, Dosing Weight 79.545, kg, PRN Elevated BP, Start date: 03/10/13 17:41:00, Duration: 2 doses or times, Stop date: 03/11/13 0:00:00(Sa me as: Apresoline ) Push over 5 minutes naloxone No Chris 0.04 mg, Memoria 1-22 r Anam 0.1 mL, l 23:41: [place] Route: Jim n [...] No Chris 4 mg, 1 Memoria ne - r Anam mL, Route: l 23:41: [place] [facility], Drug [facility] [place] [facility] form: INJ, ONCE, Dosing Weight 79.545, kg, PRN Nausea & Vomiting, Start date: 03/10/13 17:41:00Co ncentratio n: 4mg/ml morphine No Chris 2 mg, 1 Memoria Sulfate -22 r Anam mL, Route: l 23:41: [place] [facility], Drug [place] [facility] form: INJ, Q5Min, Dosing Weight 79.545, kg, PRN Pain Score 4-6, Start date: 03/10/13 17:41:00, Duration: 5 doses or times, Stop date: 03/11/13 0:00:00(Sa me as:MORPhin e Sulfate) hydromorpho No Chris 0.5 mg, Memoria ne 1-22 r Anam 0.25 mL, l 23:41: [place] Route: Jim n 00 IVP, Drug form: INJ, Q5Min, Dosing Weight 79.545, kg, PRN Pain Score 7-10, Start date: 03/10/13 17:41:00, Duration: 4 doses or times, Stop date: 03/11/13 0:00:00Sam e as: Dilaudid flumazenil No Chris 0.2 mg, 2 Memoria 1-22 r Anam mL, Route: l 23:41: [place] IVP, Drug [facility] 00 form: INJ, PRN, Dosing Weight 79.545, kg, PRN Benzodiaze pine Reversal, Initial dose, Start date: 03/10/13 17:41:00, Duration: 1 day, Stop date: 03/11/13 17:40:00(S kwame as: Romazicon) diphenhydrA No Chris 12.5 mg, Memoria MINE 1- r Anam 0.25 mL, l 23:41: 2,10E+07 Route: Jim n 00 IVP, Drug form: INJ, Q6H, Dosing Weight 79.545, kg, PRN Itching, Start date: 03/10/13 17:41:00, Duration: 1 day, Stop date: 03/11/13 12:00:00(S kwame as: Benadryl) ondansetron No Chris 4 mg, 2 Memoria 1-22 r Anam mL, Route: l 23:41: [facility] IV[facility], Drug [facility] form: INJ, ONCE, Dosing Weight 79.545, kg, PRN Nausea & Vomiting, Start date: 03/10/13 17:41:00(S kwame as: Zofran) promethazin 0 No Chris 6.25 mg, Memoria e 1-22 r Anam 0.25 mL, l 23:41: [facility] Route: Jim n 00 IVPB, Drug form: INJ, ONCE, Dosing Weight 79.545, kg, PRN Nausea & Vomiting, Start date: 03/10/13 17:41:00Do not give IV push. (Same as: Phenergan) hydrALAZINE 0 No Chris 10 mg, 0.5 Memoria 1-22 r Anam mL, Route: l 23:41: [place] [facility] [place] [facility] form: INJ, Q20Min, Dosing Weight 79.545, kg, PRN Elevated BP, Start date: 03/10/13 17:41:00, Duration: 2 doses or times, Stop date: 03/11/13 0:00:00(Sa me as: Apresoline ) Push over 5 minutes naloxone No Chris 0.04 mg, Memoria 1-22 r Anam 0.1 mL, l 23:41: [place] Route: Jim n 00 IVP, Drug form: INJ, Q2MIN, Dosing Weight 79.545, kg, PRN Narcotic Reversal, Start date: 03/10/13 17:41:00, Duration: 8 doses or times, Stop date: 03/11/13 0:00:00Sam e as Narcan labetalol No Chris 10 mg, 2 Memoria - r Anam mL, Route: l 23:41: [place] IV[facility], [facility] [place] [facility] form: INJ, Q5Min, Dosing Weight 79.545, kg, PRN Elevated BP, Start date: 03/10/13 17:41:00, Duration: 5 doses or times, Stop date: 03/11/13 0:00:00 dexamethaso 2013- No Chris 4 mg, 1 Memoria ne - r Anam mL, Route: l 23:41: [place] IV[facility], [facility] [place] [facility] form: INJ, ONCE, Dosing Weight 79.545, kg, PRN Nausea & Vomiting, Start date: 03/10/13 17:41:00Co ncentratio n: 4mg/ml morphine No Chris 2 mg, 1 Memoria Sulfate - r Anam mL, Route: l 23:41: [place] IVP, Drug [facility] [place] [facility] form: INJ, Q5Min, Dosing Weight 79.545, kg, PRN Pain Score 4-6, Start date: 03/10/13 17:41:00, Duration: 5 doses or times, Stop date: 03/11/13 0:00:00(Sa me as:MORPhin e Sulfate) hydromorpho No Chris 0.5 mg, Memoria ne 1-22 r Anam 0.25 mL, l 23:41: [place] Route: Jim n 00 IVP, Drug form: INJ, Q5Min, Dosing Weight 79.545, kg, PRN Pain Score 7-10, Start date: 03/10/13 17:41:00, Duration: 4 doses or times, Stop date: 03/11/13 0:00:00Sam e as: Dilaudid flumazenil No Chris 0.2 mg, 2 Memoria -22 r Anam mL, Route: l 23:41: [place] IV[facility], Drug [facility] [place] [facility] form: INJ, PRN, Dosing Weight 79.545, kg, PRN Benzodiaze pine Reversal, Initial dose, Start date: 03/10/13 17:41:00, Duration: 1 day, Stop date: 03/11/13 17:40:00(S kwame as: Romazicon) diphenhydrA No Chris 12.5 mg, Memoria MINE - r Anam 0.25 mL, l 23:41: [place] Route: Jim n 00 IVP, Drug form: INJ, Q6H, Dosing Weight 79.545, kg, PRN Itching, Start date: 03/10/13 17:41:00, Duration: 1 day, Stop date: 03/11/13 12:00:00(S kwame as: Benadryl) ondansetron No Chris 4 mg, 2 Memoria -22 r Anam mL, Route: l 23:41: [place] IVP, Drug [facility] [place] [facility] form: INJ, ONCE, Dosing Weight 79.545, kg, PRN Nausea & Vomiting, Start date: 03/10/13 17:41:00(S kwame as: Zofran) promethazin No Chris 6.25 mg, Memoria e 1-22 r Anam 0.25 mL, l 23:41: [place] Route: Jim n 00 IVPB, Drug form: INJ, ONCE, Dosing Weight 79.545, kg, PRN Nausea & Vomiting, Start date: 03/10/13 17:41:00Do not give IV push. (Same as: Phenergan) hydrALAZINE No Chris 10 mg, 0.5 Memoria 1-22 r Anam mL, Route: l 23:41: [place] IVP, Drug [facility] [place] [facility] form: INJ, Q20Min, Dosing Weight 79.545, kg, PRN Elevated BP, Start date: 03/10/13 17:41:00, Duration: 2 doses or times, Stop date: 03/11/13 0:00:00(Sa me as: Apresoline ) Push over 5 minutes naloxone No Chris 0.04 mg, Memoria 1-22 r Anam 0.1 mL, l 23:41: [place] Route: Jim n [...] No Chris 4 mg, 1 Memoria ne - r Anam mL, Route: l 23:41: [place] IVP, Drug [place] [facility] form: INJ, ONCE, Dosing Weight 79.545, kg, PRN Nausea & Vomiting, Start date: 03/10/13 17:41:00Co ncentratio n: 4mg/ml morphine No Chris 2 mg, 1 Memoria Sulfate -22 r Anam mL, Route: l 23:41: [place] IVP, Drug [place] [facility] form: INJ, Q5Min, Dosing Weight 79.545, kg, PRN Pain Score 4-6, Start date: 03/10/13 17:41:00, Duration: 5 doses or times, Stop date: 03/11/13 0:00:00(Sa me as:MORPhin e Sulfate) hydromorpho No Chris 0.5 mg, Memoria ne - r Anam 0.25 mL, l 23:41: [place] Route: Jim n 00 IVP, Drug form: INJ, Q5Min, Dosing Weight 79.545, kg, PRN Pain Score 7-10, Start date: 03/10/13 17:41:00, Duration: 4 doses or times, Stop date: 03/11/13 0:00:00Sam e as: Dilaudid flumazenil No Chris 0.2 mg, 2 Memoria - r Anam mL, Route: l 23:41: [place] [facility], Drug [facility] [place] form: INJ, PRN, Dosing Weight 79.545, kg, [...] promethazin No Chris 6.25 mg, Memoria e - r Anam 0.25 mL, l 23:41: [place] Route: Jim n 00 IVPB, Drug form: INJ, ONCE, Dosing Weight 79.545, kg, PRN Nausea & Vomiting, Start date: 03/10/13 17:41:00Do not give IV push. (Same as: Phenergan) [place] Yes [facility] 1 tab, PO, Memoria 10/325 oral -22 n [place] Q4H, for l tablet 23:34: pain, # 60 Vanessa nn 00 tab, 0 Refill(s) Colace 100 Yes [facility] 100 mg = 1 Memoria mg oral -22 n [place] cap, PO, l capsule 23:34: BID, [place] 00 Constipati on, # 28 cap, 0 Refill(s) Zofran 4 mg Yes [facility] 4 mg = 1 Memoria oral tablet -22 n [place] tab, PO, l 23:34: Q8H, as [place] 00 needed for nausea/vom iting, # 42 tab, 0 Refill(s) [place] Yes [facility] 1 tab, PO, Memoria 10/325 oral -22 n [place] Q4H, for l tablet 23:34: pain, # 60 Vanessa nn 00 tab, 0 Refill(s) Colace 100 Yes [facility] 100 mg = 1 Memoria mg oral -22 n [place] cap, PO, l capsule 23:34: BID, [place] 00 Constipati on, # 28 cap, 0 Refill(s) Zofran 4 mg Yes [facility] 4 mg = 1 Memoria oral tablet -22 n [place] tab, PO, l 23:34: Q8H, as [place] 00 needed for nausea/vom iting, # 42 tab, 0 Refill(s) [place] Yes [facility] 1 tab, PO, Memoria 10/325 oral 1-22 n [place] Q4H, for l tablet 23:34: pain, # 60 Vanessa nn 00 tab, 0 Refill(s) Colace 100 Yes [facility] 100 mg = 1 Memoria mg oral 1-22 n [place] cap, PO, l capsule 23:34: BID, [place] 00 Constipati on, # 28 cap, 0 Refill(s) Zofran 4 mg Yes [facility] 4 mg = 1 Memoria oral tablet 1-22 n [place] tab, PO, l 23:34: Q8H, as [place] 00 needed for nausea/vom iting, # 42 tab, 0 Refill(s) [place] Yes [facility] 1 tab, PO, Memoria 10/325 oral 1-22 n [place] Q4H, for l tablet 23:34: pain, # 60 Vanessa nn 00 tab, 0 Refill(s) Colace 100 Yes [facility] 100 mg = 1 Memoria mg oral 1-22 n [place] cap, PO, l capsule 23:34: BID, [place] 00 Constipati on, # 28 cap, 0 Refill(s) Zofran 4 mg Yes [facility] 4 mg = 1 Memoria oral tablet 1-22 n [place] tab, PO, l 23:34: Q8H, as [place] 00 needed for nausea/vom iting, # 42 tab, 0 Refill(s) [place] Yes [facility] 1 tab, PO, Memoria 10/325 oral 1-22 n [place] Q4H, for l tablet 23:34: pain, # 60 Vanessa nn 00 tab, 0 Refill(s) Colace 100 Yes [facility] 100 mg = 1 Memoria mg oral 1-22 n [place] cap, PO, l capsule 23:34: BID, [place] 00 Constipati on, # 28 cap, 0 Refill(s) Zofran 4 mg Yes [facility] 4 mg = 1 Memoria oral tablet 1-22 n [place] tab, PO, l 23:34: Q8H, as [place] 00 needed for nausea/vom iting, # 42 tab, 0 Refill(s) [place] Yes [facility] 1 tab, PO, Memoria 10/325 oral 1-22 n [place] Q4H, for l tablet 23:34: pain, # 60 Vanessa nn 00 tab, 0 Refill(s) Colace 100 Yes [facility] 100 mg = 1 Memoria mg oral 1-22 n [place] cap, PO, l capsule 23:34: BID, [place] 00 Constipati on, # 28 cap, 0 Refill(s) Zofran 4 mg Yes [facility] 4 mg = 1 Memoria oral tablet 22 n [place] tab, PO, l 23:34: Q8H, as [place] 00 needed for nausea/vom iting, # 42 tab, 0 Refill(s) vancomycin No [place] 1 gm, Memor ia 1 Cristian Route: l 21:44: IVPB, Drug [place] 00 form: INJ, ONCE, Dosing Weight 79.545, kg, Start date: 03/10/13 15:44:00, Stop date: 03/10/13 15:44:00 vancomycin No [place] 1 gm, Memor ia 03-10 Critsian Route: l 21:44: IVPB, Drug [place] 00 form: INJ, ONCE, Dosing Weight 79.545, kg, Start date: 03/10/13 15:44:00, Stop date: 03/10/13 15:44:00 vancomycin No [place] 1 gm, Memor ia 03-10 Cristian Route: l 21:44: IVPB, Drug [place] 00 form: INJ, ONCE, Dosing Weight 79.545, kg, Start date: 03/10/13 15:44:00, Stop date: 03/10/13 15:44:00 vancomycin No [place] 1 gm, Memor ia 03-10 Cristian Route: l 21:44: IVPB, Drug [place] 00 form: INJ, ONCE, Dosing Weight 79.545, kg, Start date: 03/10/13 15:44:00, Stop date: 03/10/13 15:44:00 vancomycin No [place] 1 gm, Memor ia 22 Cristian Route: l 21:44: IVPB, Drug [place] 00 form: INJ, ONCE, Dosing Weight 79.545, kg, Start date: 03/10/13 15:44:00, Stop date: 03/10/13 15:44:00 vancomycin No [place] 1 gm, Memor ia 22 Cristian Route: l 21:44: IVPB, Drug [place] 00 form: INJ, ONCE, Dosing Weight 79.545, kg, Start date: 03/10/13 15:44:00, Stop date: 03/10/13 15:44:00 ceFAZolin 2014-0 No [place] 2 gm, 50 Mem oria 1-22 Cristian mL, Route: l 09:00: IVPB, Drug [place] 00 form: INJ, PRE OP, Start date: 03/10/13 3:00:00, Duration: 1 doses or times, Stop date: 03/11/13 0:00:00 ceFAZolin 2014-0 No [place] 2 gm, 50 Mem oria 1-22 Cristian mL, Route: l 09:00: IVPB, Drug [place] 00 form: INJ, PRE OP, Start date: 03/10/13 3:00:00, Duration: 1 doses or times, Stop date: 03/11/13 0:00:00 ceFAZolin 2014-0 No [place] 2 gm, 50 Mem oria 1-22 Cristian mL, Route: l 09:00: IVPB, Drug [place] 00 form: INJ, PRE OP, Start date: 03/10/13 3:00:00, Duration: 1 doses or times, Stop date: 03/11/13 0:00:00 ceFAZolin 2014-0 No [place] 2 gm, 50 Mem oria 1-22 Cristian mL, Route: l 09:00: IVPB, Drug [place] 00 form: INJ, PRE OP, Start date: 03/10/13 3:00:00, Duration: 1 doses or times, Stop date: 03/11/13 0:00:00 ceFAZolin 2014-0 No [place] 2 gm, 50 Mem oria 1-22 Cristian mL, Route: l 09:00: IVPB, Drug [place] 00 form: INJ, PRE OP, Start date: 03/10/13 3:00:00, Duration: 1 doses or times, Stop date: 03/11/13 0:00:00 ceFAZolin 2014-0 No [place] 2 gm, 50 Mem oria 1-22 Cristian mL, Route: l 09:00: IVPB, Drug [place] 00 form: INJ, PRE OP, Start date: 03/10/13 3:00:00, Duration: 1 doses or times, Stop date: 03/11/13 0:00:00 NS + KCL 2014-0 No [place] 1,000 mL, Mem oria 20mEq/L 03-10 Cristian Rate: 70 l 1000ml 08:32: ml/hr, [place] (Premix) 00 Infuse 1,000 mL over: 14.3 hr, Route: IV, Dosing Weight 79.545 kg, Total Volume: 1,000, Start date: 03/10/13 2:32:00, Duration: 1 doses or times, Stop date: 03/10/13 16:49:00PR EMIX IV - Do Not Alter NS + KCL No [place] 1,000 mL, Mem oria 20mEq/L 03-10 Cristian Rate: 70 l 1000ml 08:32: ml/hr, [place] (Premix) 00 Infuse 1,000 mL over: 14.3 hr, Route: IV, Dosing Weight 79.545 kg, Total Volume: 1,000, Start date: 03/10/13 2:32:00, Duration: 1 doses or times, Stop date: 03/10/13 16:49:00PR EMIX IV - Do Not Alter NS + KCL No [place] 1,000 mL, Mem oria 20mEq/L 03-10 Cristian Rate: 70 l 1000ml 08:32: ml/hr, [place] (Premix) 00 Infuse 1,000 mL over: 14.3 hr, Route: IV, Dosing Weight 79.545 kg, Total Volume: 1,000, Start date: 03/10/13 2:32:00, Duration: 1 doses or times, Stop date: 03/10/13 16:49:00PR EMIX IV - Do Not Alter NS + KCL No [place] 1,000 mL, Mem oria 20mEq/L 03-10 Cristian Rate: 70 l 1000ml 08:32: ml/hr, [place] (Premix) 00 Infuse 1,000 mL over: 14.3 hr, Route: IV, Dosing Weight 79.545 kg, Total Volume: 1,000, Start date: 03/10/13 2:32:00, Duration: 1 doses or times, Stop date: 03/10/13 16:49:00PR EMIX IV - Do Not Alter NS + KCL No [place] 1,000 mL, Mem oria 20mEq/L 03-10 Cristian Rate: 70 l 1000ml 08:32: ml/hr, [place] (Premix) 00 Infuse 1,000 mL over: 14.3 hr, Route: IV, Dosing Weight 79.545 kg, Total Volume: 1,000, Start date: 03/10/13 2:32:00, Duration: 1 doses or times, Stop date: 03/10/13 16:49:00PR EMIX IV - Do Not Alter NS + KCL No [place] 1,000 mL, Mem oria 20mEq/L 03-10 Cristian Rate: 70 l 1000ml 08:32: ml/hr, [place] (Premix) 00 Infuse 1,000 mL over: 14.3 hr, Route: IV, Dosing Weight 79.545 kg, Total Volume: 1,000, Start date: 03/10/13 2:32:00, Duration: 1 doses or times, Stop date: 03/10/13 16:49:00PR EMIX IV - Do Not Alter sertraline 0 Yes 0 Memoria 1-14 Refill(s) l 20:23: [place] LaMICtal 0 Yes 0 Memoria 1-14 Refill(s) l 20:23: [place] 00 Lyrica 2013-0 Yes 0 Memoria 1-14 Refill(s) l 20:23: [place] 00 sertraline 2013-0 Yes 0 Memoria 1-14 Refill(s) l 20:23: [place] 00 LaMICtal 2013-0 Yes 0 Memoria 1-14 Refill(s) l 20:23: [place] 00 Lyrica 2013-0 Yes 0 Memoria 1-14 Refill(s) l 20:23: [place] 00 sertraline 2013-0 Yes 0 Memoria 1-14 Refill(s) l 20:23: [place] 00 LaMICtal 2013-0 Yes 0 Memoria 1-14 Refill(s) l 20:23: [place] 00 Lyrica 2013-0 Yes 0 Memoria 1-14 Refill(s) l 20:23: [place] 00 sertraline 2013-0 Yes 0 Memoria 1-14 Refill(s) l 20:23: [place] 00 LaMICtal 2013-0 Yes 0 Memoria 1-14 Refill(s) l 20:23: [place] 00 Lyrica 2014-0 Yes 0 Memoria 1-14 Refill(s) l 20:23: [place] 00 sertraline 2014-0 Yes 0 Memoria 1-14 Refill(s) l 20:23: [place] 00 LaMICtal 2014-0 Yes 0 Memoria 1-14 Refill(s) l 20:23: [place] 00 Lyrica 2014-0 Yes 0 Memoria 1-14 Refill(s) l 20:23: [place] 00 sertraline 2014-0 Yes 0 Memoria 1-14 Refill(s) l 20:23: [place] 00 LaMICtal 2014-0 Yes 0 Memoria 1-14 Refill(s) l 20:23: [place] 00 Lyrica 2014-0 Yes 0 Memoria 1-14 Refill(s) l 20:23: [place] 00 Immunizations Ordered Filled Immunization Date Status Comments [facility] e Immunization Name Name Influenza Virus 2022-01-23 Completed [facility]00 [facility] Influenza Virus 2022-01-23 Completed [facility] Vaccine 00:00:00 [facility] Influenza Virus 2022-01-23 Completed [facility] Vaccine 00:00:00 [facility] Influenza Virus 2022-01-23 Completed [facility] Vaccine 00:00:00 [facility] Influenza Virus 2022-01-23 Completed [facility] Vaccine 00:00:00 [facility] Influenza Virus 2022-01-23 Completed [facility] Vaccine 00:00:00 [facility] Influenza Virus 2022-01-23 Completed [facility] Vaccine 00:00:00 [facility] Influenza Virus 2022-01-23 Completed [facility] Vaccine 00:00:00 [facility] Influenza Virus 2022-01-23 Completed [facility] of Vaccine 00:00:00 [facility] Influenza Virus 2022-01-23 Completed [facility] Vaccine 00:00:00 [facility] Influenza Virus 2022-01-23 Completed [facility] of Vaccine 00:00:00 [facility] Influenza Virus 2022-01-23 Completed [facility] of Vaccine 00:00:00 [facility] Influenza Virus 2022-01-23 Completed [facility] of Vaccine 00:00:00 [facility] Influenza Virus 2022-01-23 Completed [facility] of Vaccine 00:00:00 [facility] Influenza Virus 2022-01-23 Completed [facility] Vaccine 00:00:00 [facility] Influenza Virus 2022-01-23 Completed [facility] Vaccine 00:00:00 [facility] Influenza Virus 2022-01-23 Completed [facility] of Vaccine 00:00:00 [facility] Influenza Virus 2022-01-23 Completed [facility] of Vaccine 00:00:00 [facility] Influenza Virus 2022-01-23 Completed [facility] of Vaccine 00:00:00 [facility] Influenza Virus 2022-01-23 Completed [facility] of Vaccine 00:00:00 [facility] Influenza Virus 2021-01-12 Completed [facility] of Vaccine 00:00:00 [facility] Influenza Virus 2021-01-12 Completed [facility] of Vaccine 00:00:00 [facility] Influenza Virus 2021-01-12 Completed [facility] of Vaccine 00:00:00 [facility] Influenza Virus 2021-01-12 Completed [facility] of Vaccine 00:00:00 [facility] Influenza Virus 2021-01-12 Completed [facility] of Vaccine 00:00:00 [facility] Influenza Virus 2021-01-12 Completed [facility] of Vaccine 00:00:00 [facility] Influenza Virus 2021-01-12 Completed [facility] of Vaccine 00:00:00 [facility] Influenza Virus 2021-01-12 Completed [facility] of Vaccine 00:00:00 [facility] Influenza Virus 2021-01-12 Completed [facility] of Vaccine 00:00:00 [facility] Influenza Virus 2021-01-12 Completed [facility] of Vaccine 00:00:00 [facility] Influenza Virus 2021-01-12 Completed [facility] of Vaccine 00:00:00 [facility] Influenza Virus 2021-01-12 Completed [facility] of Vaccine 00:00:00 [facility] Influenza Virus 2021-01-12 Completed [facility] of Vaccine 00:00:00 [facility] Influenza Virus 2021-01-12 Completed [facility] of Vaccine 00:00:00 [facility] Influenza Virus 2021-01-12 Completed [facility] of Vaccine 00:00:00 [facility] Influenza Virus 2021-01-12 Completed [facility] of Vaccine 00:00:00 [facility] Influenza Virus 2021-01-12 Completed [facility] y of Vaccine 00:00:00 [facility] Influenza Virus 2021-01-12 Completed [facility] y of Vaccine 00:00:00 [facility] Influenza Virus 2021-01-12 Completed [facility] y of Vaccine 00:00:00 [facility] Influenza Virus 2021-01-12 Completed [facility] y of Vaccine 00:00:00 [facility] Influenza Virus 2021-01-12 Completed [facility] of Vaccine 00:00:00 [facility] Influenza Virus 2021-01-12 Completed [facility] y of Vaccine 00:00:00 [facility] Influenza Virus 2021-01-12 Completed [facility] y of Vaccine 00:00:00 [facility] Influenza Virus 2021-01-12 Completed [facility] y of Vaccine 00:00:00 [facility] Influenza Virus 2021-01-12 Completed [facility] y of Vaccine 00:00:00 [facility] Influenza Virus 2021-01-12 Completed [facility] y of Vaccine 00:00:00 [facility] Influenza Virus 2021-01-12 Completed [facility] of Vaccine 00:00:00 [facility] Influenza Virus 2021-01-12 Completed [facility] y of Vaccine 00:00:00 [facility] Influenza Virus 2021-01-12 Completed [facility] of Vaccine 00:00:00 [facility] Influenza Virus 2021-01-12 Completed [facility] y of Vaccine 00:00:00 [facility] Influenza Virus 2021-01-12 Completed [facility] y of Vaccine 00:00:00 [facility] SARS-COV-2 COVID-19 2020-06-16 Completed Unive rsity of MODERNA 12+ YRS 00:00:00 [facility] ical VACCINE Branch SARS-COV-2 COVID-19 2020-06-16 Completed Unive rsity of MODERNA 12+ YRS 00:00:00 [facility] ical VACCINE Branch SARS-COV-2 COVID-19 2020-06-16 Completed Unive rsity of MODERNA 12+ YRS 00:00:00 [facility] ical VACCINE Branch SARS-COV-2 COVID-19 2020-06-16 Completed Unive rsity of MODERNA 12+ YRS 00:00:00 [facility] VACCINE Branch SARS-COV-2 COVID-19 2020-06-16 Completed Unive rsity of MODERNA 12+ YRS 00:00:00 [place] [facility] SARS-COV-2 COVID-19 2020-06-16 Completed Unive rsity of MODERNA 12+ YRS 00:00:00 [place] [facility] SARS-COV-2 COVID-19 2020-06-16 Completed Unive rsity of MODERNA 12+ YRS 00:00:00 [place] [facility] SARS-COV-2 COVID-19 2020-06-16 Completed Unive rsity of MODERNA 12+ YRS 00:00:00 [place] [facility] SARS-COV-2 COVID-19 2020-06-16 Completed Unive rsity of MODERNA 12+ YRS 00:00:00 [place] [facility] SARS-COV-2 COVID-19 2020-06-16 Completed Unive rsity of MODERNA 12+ YRS 00:00:00 [place] [facility] SARS-COV-2 COVID-19 2020-06-16 Completed Unive rsity of MODERNA 12+ YRS 00:00:00 [place] [facility] SARS-COV-2 COVID-19 2020-06-16 Completed Unive rsity of MODERNA 12+ YRS 00:00:00 [place] [facility] SARS-COV-2 COVID-19 2020-06-16 Completed Unive rsity of MODERNA 12+ YRS 00:00:00 [place] [facility] SARS-COV-2 COVID-19 2020-06-16 Completed Unive rsity of MODERNA 12+ YRS 00:00:00 [place] [facility] SARS-COV-2 COVID-19 2020-06-16 Completed Unive rsity of MODERNA 12+ YRS 00:00:00 [place] [facility] SARS-COV-2 COVID-19 2020-06-16 Completed Unive rsity of MODERNA 12+ YRS 00:00:00 [place] [facility] SARS-COV-2 COVID-19 2020-06-16 Completed Unive rsity of MODERNA 12+ YRS 00:00:00 [place] [facility] SARS-COV-2 COVID-19 2020-06-16 Completed Unive rsity of MODERNA 12+ YRS 00:00:00 [place] [facility] SARS-COV-2 COVID-19 2020-06-16 Completed Unive rsity of MODERNA 12+ YRS 00:00:00 [place] [facility] SARS-COV-2 COVID-19 2020-06-16 Completed Unive rsity of MODERNA 12+ YRS 00:00:00 [place] [facility] SARS-COV-2 COVID-19 2020-06-16 Completed Unive rsity of MODERNA 12+ YRS 00:00:00 [place] [facility] SARS-COV-2 COVID-19 2020-06-16 Completed Unive rsity of MODERNA 12+ YRS 00:00:00 [place] [facility] SARS-COV-2 COVID-19 2020-06-16 Completed Unive rsity of MODERNA VACCINE 00:00:00 [place] [facility] SARS-COV-2 COVID-19 2020-06-16 Completed Unive rsity of MODERNA 12+ YRS 00:00:00 [place] [facility] VACC[facility] SARS-COV-2 COVID-19 2020-06-16 Completed Unive rsity of MODERNA 12+ YRS 00:00:00 [place] [facility] V[facility] SARS-COV-2 COVID-19 2020-06-16 Completed Unive rsity of MODERNA 12+ YRS 00:00:00 [place] [facility] SARS-COV-2 COVID-19 2020-06-16 Completed Unive rsity of MODERNA 12+ YRS 00:00:00 [place] [facility] SARS-COV-2 COVID-19 2020-06-16 Completed Unive rsity of MODERNA 12+ YRS 00:00:00 [place] [facility] SARS-COV-2 COVID-19 2020-06-16 Completed [facility] 12+ YRS 00:00:00 [place] [facility] SARS-COV-2 COVID-19 2020-06-16 Completed [facility] 12+ YRS 00:00:00 [place] [facility] SARS-COV-2 COVID-19 2020-06-16 Completed [facility] 12+ YRS 00:00:00 [place] [facility] SARS-COV-2 COVID-19 2020-05-19 Completed [facility] 12+ YRS 00:00:00 [place] [facility] SARS-COV-2 COVID-19 2020-05-19 Completed [facility] 12+ YRS 00:00:00 [place] [facility] SARS-COV-2 COVID-19 2020-05-19 Completed [facility] 12+ YRS 00:00:00 [place] [facility] SARS-COV-2 COVID-19 2020-05-19 Completed [facility] 12+ YRS 00:00:00 [place] [facility] SARS-COV-2 COVID-19 2020-05-19 Completed [facility] 12+ YRS 00:00:00 [place] [facility] SARS-COV-2 COVID-19 2020-05-19 Completed [facility] 12+ YRS 00:00:00 [place] [facility] SARS-COV-2 COVID-19 2020-05-19 Completed [facility] 12+ YRS 00:00:00 [place] [facility] SARS-COV-2 COVID-19 2020-05-19 Completed [facility] 12+ YRS 00:00:00 [place] [facility] SARS-COV-2 COVID-19 2020-05-19 Completed Unive rsity of MODERNA 12+ YRS 00:00:00 [place] [facility] SARS-COV-2 COVID-19 2020-05-19 Completed Unive rsity of MODERNA 12+ YRS 00:00:00 [place] [facility] SARS-COV-2 COVID-19 2020-05-19 Completed Unive rsity of MODERNA 12+ YRS 00:00:00 [place] [facility] SARS-COV-2 COVID-19 2020-05-19 Completed Unive rsity of MODER[place] 12+ YRS 00:00:00 [place] [facility] SARS-COV-2 COVID-19 2020-05-19 Completed Unive rsity of MODER[place] 12+ YRS 00:00:00 [place] [facility] SARS-COV-2 COVID-19 2020-05-19 Completed Unive rsity of MODERNA 12+ YRS 00:00:00 [place] [facility] SARS-COV-2 COVID-19 2020-05-19 Completed Unive rsity of MODER[place] 12+ YRS 00:00:00 [place] [facility] SARS-COV-2 COVID-19 2020-05-19 Completed Unive rsity of MODERNA 12+ YRS 00:00:00 [place] [facility] SARS-COV-2 COVID-19 2020-05-19 Completed Unive rsity of MODERNA 12+ YRS 00:00:00 [place] [facility] SARS-COV-2 COVID-19 2020-05-19 Completed Unive rsity of MODERNA 12+ YRS 00:00:00 [place] [facility] SARS-COV-2 COVID-19 2020-05-19 Completed Unive rsity of MODERNA 12+ YRS 00:00:00 [place] [facility] SARS-COV-2 COVID-19 2020-05-19 Completed Unive rsity of MODERNA 12+ YRS 00:00:00 [place] [facility] SARS-COV-2 COVID-19 2020-05-19 Completed Unive rsity of MODERNA 12+ YRS 00:00:00 [place] [facility] SARS-COV-2 COVID-19 2020-05-19 Completed Unive rsity of MODERNA 12+ YRS 00:00:00 [place] [facility] SARS-COV-2 COVID-19 2020-05-19 Completed Unive rsity of MODERNA VACCINE 00:00:00 [place] [facility] SARS-COV-2 COVID-19 2020-05-19 Completed Unive rsity of MODERNA 12+ YRS 00:00:00 [place] [facility] SARS-COV-2 COVID-19 2020-05-19 Completed Unive rsity of MODERNA 12+ YRS 00:00:00 [place] [facility] SARS-COV-2 COVID-19 2020-05-19 Completed Unive rsity of MODERNA 12+ YRS 00:00:00 [place] [facility] SARS-COV-2 COVID-19 2020-05-19 Completed Unive rsity of MODERNA 12+ YRS 00:00:00 [place] [facility] SARS-COV-2 COVID-19 2020-05-19 Completed Unive rsity of MODERNA 12+ YRS 00:00:00 [place] [facility] SARS-COV-2 COVID-19 2020-05-19 Completed Unive rsity of MODERNA 12+ YRS 00:00:00 [place] [facility] SARS-COV-2 COVID-19 2020-05-19 Completed Unive rsity of MODERNA 12+ YRS 00:00:00 [place] [facility] SARS-COV-2 COVID-19 2020-05-19 Completed Unive rsity of MODERNA 12+ YRS 00:00:00 [facility] ical VACCINE Branch Vital Signs Vital Name Observation Time Observation Value Comments Source Systolic blood 2022-09-24 15:13:00 98 mm[Hg] Univer sity of pressure [facility] Diastolic blood 2022-09-24 15:13:00 66 mm[Hg] Unive rsity of pressure [facility] Heart rate 2022-09-24 15:13:00 75 /min Universi ty of [facility] Respiratory rate 2022-09-24 15:13:00 16 /min [facility] Body height 2022-09-24 15:13:00 175.3 cm [facility] [place] [facility] Body weight 2022-09-24 15:13:00 73.71 kg [facility] [place] [facility] BMI 2022-09-24 15:13:00 24.00 kg/m2 Universi ty of [facility] Oxygen saturation in 2022-09-24 15:13:00 97 /min University Arterial blood by [facility] Pulse oximetry Branch Systolic blood 2022-09-23 15:18:00 112 mm[Hg] Univer sity of pressure [facility] Diastolic blood 2022-09-23 15:18:00 72 mm[Hg] Unive rsity of pressure [facility] Heart rate 2022-09-23 15:18:00 78 /min Universi ty of [facility] Body temperature 2022-09-23 15:18:00 36.39 Jazmine Univ ersity of [facility] Body height 2022-09-23 15:18:00 175.3 cm [facility] Body weight 2022-09-23 15:18:00 73.029 kg [facility] BMI 2022-09-23 15:18:00 23.78 kg/m2 [facility] [place] [facility] Oxygen saturation in 2022-09-23 15:18:00 97 /min University of Arterial blood by [place] [facility] Pulse oximetry [facility] Systolic blood 2022-06-25 17:54:00 126 mm[Hg] Univer sity of pressure [facility] Diastolic blood 2022-06-25 17:54:00 81 mm[Hg] Unive rsity of pressure [facility] Heart rate 2022-06-25 17:54:00 77 /min [facility] Respiratory rate 2022-06-25 17:54:00 18 /min Univ ersity [facility] Body height 2022-06-25 17:54:00 175.3 cm [facility] [place] [facility] Body weight 2022-06-25 17:54:00 75.615 kg [facility] [place] [facility] BMI 2022-06-25 17:54:00 24.62 kg/m2 [facility] Oxygen saturation in 2022-06-25 17:54:00 96 /min University of Arterial blood by [facility] Pulse oximetry Branch Systolic blood 2022-06-24 16:58:00 122 mm[Hg] Univer sity of [facility] Diastolic blood 2022-06-24 16:58:00 81 mm[Hg] Unive rsity of pressure [facility] Heart rate 2022-06-24 16:58:00 71 /min [facility]i ty [facility] [place] [facility] Body temperature 2022-06-24 16:58:00 36.5 Jazmine Univ ersity of [place] [facility] Respiratory rate 2022-06-24 16:58:00 20 /min Univ ersity of [facility] Body height 2022-06-24 16:58:00 175.3 cm [facility] [place] [facility] Body weight 2022-06-24 16:58:00 75.751 kg [facility] [place] [facility] BMI 2022-06-24 16:58:00 24.66 kg/m2 [facility] [place] [facility] Oxygen saturation in 2022-06-24 16:58:00 97 /min University of Arterial blood by [facility] Pulse oximetry Branch Systolic blood 2022-03-25 19:01:00 120 mm[Hg] Univer sity of [facility] Diastolic blood 2022-03-25 19:01:00 78 mm[Hg] Unive rsity of pressure [facility] Heart rate 2022-03-25 19:01:00 74 /min [facility] [place] [facility] Body height 2022-03-25 19:01:00 175.3 cm [facility] [place] [facility] Body weight 2022-03-25 19:01:00 75.524 kg [facility] [place] [facility] BMI 2022-03-25 19:01:00 24.59 kg/m2 [facility] [place] [facility] Oxygen saturation in 2022-03-25 19:01:00 98 /min University of Arterial blood by [facility] Pulse oximetry Branch Systolic blood 2021-12-20 19:15:00 123 mm[Hg] Univer sity of [facility] Diastolic blood 2021-12-20 19:15:00 79 mm[Hg] Unive rsity of pressure [facility] Heart rate 2021-12-20 19:15:00 65 /min [facility] [place] [facility] Body temperature 2021-12-20 19:15:00 36.44 Jazmine Univ ersity [facility] [place] [facility] Respiratory rate 2021-12-20 19:15:00 16 /min Univ ersity [facility] [place] [facility] Body height 2021-12-20 19:15:00 175.3 cm [facility] [place] [facility] Body weight 2021-12-20 19:15:00 75.66 kg [facility] [place] [facility] BMI 2021-12-20 19:15:00 24.63 kg/m2 [facility] [place] [facility] Oxygen saturation in 2021-12-20 19:15:00 98 /min room air University of Arterial blood by [facility] Pulse oximetry Branch Respitory Rate 2016-08-26 19:20:00 [facility] [place] Systolic (mm Hg) 2016-08-26 17:00:00 [facility] [facility] [place] Diastolic (mm Hg) 2016-08-26 17:00:00 [facility] [place] Respitory Rate 2016-08-26 17:00:00 [facility] [place] Temperature Oral (F) 2016-08-26 17:00:00 98.0 F [facility] Systolic (mm Hg) 2016-08-26 16:00:00 [place] [facility] [place] Diastolic (mm Hg) 2016-08-26 16:00:00 [facility] [place] Respitory Rate 2016-08-26 16:00:00 [facility] [place] Systolic (mm Hg) 2016-08-26 15:00:00 [place] [facility] [place] Diastolic (mm Hg) 2016-08-26 15:00:00 [facility] [place] Temperature Oral (F) 2016-08-26 13:45:00 97.8 F [facility] Temperature Oral (F) 2016-08-26 10:00:00 97.4 F [facility] [place] Height 2016-08-24 13:40:00 165.1 cm [facility] [place] BMI Calculated 2016-08-24 08:33:00 [facility] [place] Weight 2016-08-24 08:33:00 [facility] [place] Height 2016-08-24 08:33:00 165.1 cm [facility] Height 2016-08-24 07:41:00 182.88 cm [facility] [place] BMI Calculated 2016-08-24 03:01:00 [facility] [place] Weight 2016-08-24 03:01:00 [facility] Heart Rate 2016-08-24 02:52:00 [facility] Systolic (mm Hg) 2016-08-08 14:00:00 [facility] [place] Diastolic (mm Hg) 2016-08-08 14:00:00 [facility] [place] Respitory Rate 2016-08-08 14:00:00 [facility] [place] Systolic (mm Hg) 2016-08-08 13:00:00 [place] [facility] [place] Diastolic (mm Hg) 2016-08-08 13:00:00 [facility] Respitory Rate 2016-08-08 13:00:00 [facility] [place] Systolic (mm Hg) 2016-08-08 12:54:00 [place] [facility] [place] Diastolic (mm Hg) 2016-08-08 12:54:00 [facility] [place] Respitory Rate 2016-08-08 12:54:00 [facility] [place] Temperature Oral (F) 2016-08-08 08:21:00 98.3 F [facility] [place] Temperature Oral (F) 2016-08-08 04:25:00 97.6 F [facility] [place] Temperature Oral (F) 2016-08-08 01:49:00 99.1 F [facility] Weight 2016-08-07 14:00:00 [facility] [place] BMI Calculated 2016-08-07 02:41:00 [facility] [place] Weight 2016-08-07 02:41:00 [facility] Height 2016-08-07 02:41:00 175.26 cm [facility] Heart Rate 2016-08-06 22:00:00 [facility] [place] Diastolic (mm Hg) 2013-04-17 13:58:00 [facility] [place] Systolic (mm Hg) 2013-04-17 13:58:00 [place] [facility] [place] Heart Rate 2013-04-17 13:58:00 [facility] [place] Respitory Rate 2013-04-17 13:58:00 [facility] [place] Temperature Oral (F) 2013-04-17 13:58:00 98.2 F [facility] [place] Diastolic (mm Hg) 2013-04-17 01:56:00 [facility] [place] Heart Rate 2013-04-17 01:56:00 [facility] Temperature Oral (F) 2013-04-17 01:56:00 97.8 F [facility] Systolic (mm Hg) 2013-04-17 01:56:00 [place] [facility] [place] Respitory Rate 2013-04-17 01:56:00 [facility] [place] Diastolic (mm Hg) 2013-04-16 15:27:00 [facility] [place] Systolic (mm Hg) 2013-04-16 15:27:00 [place] [facility] [place] Temperature Oral (F) 2013-04-16 15:27:00 98.1 F [facility] Heart Rate 2013-04-16 15:27:00 [facility] [place] Respitory Rate 2013-04-16 03:10:00 [facility] BMI Calculated 2013-04-13 14:23:00 [facility] [place] Weight 2013-04-13 14:23:00 [facility] [place] Height 2013-04-13 14:23:00 175.26 cm [facility] [place] Diastolic (mm Hg) 2013-03-13 14:16:00 [facility] [place] Systolic (mm Hg) 2013-03-13 14:16:00 [place] [facility] [place] Respitory Rate 2013-03-13 14:16:00 [facility] [place] Systolic (mm Hg) 2013-03-13 11:00:00 [place] [facility] [place] Diastolic (mm Hg) 2013-03-13 11:00:00 [facility] [place] Systolic (mm Hg) 2013-03-13 06:00:00 [place] [facility] [place] Diastolic (mm Hg) 2013-03-13 06:00:00 [facility] [place] Respitory Rate 2013-03-12 22:02:00 [facility] [place] Temperature Oral (F) 2013-03-12 20:15:00 97.5 F [facility] Respitory Rate 2013-03-12 20:15:00 [facility] Temperature Oral (F) 2013-03-12 17:30:00 98 F [facility] Heart Rate 2013-03-12 14:02:00 [facility] Height 2013-03-12 13:42:00 175.26 cm [facility] [place] Weight 2013-03-12 13:42:00 [facility] Heart Rate 2013-03-11 00:18:00 [facility] Systolic (mm Hg) 2013-03-11 00:18:00 [place] [facility] [place] Respitory Rate 2013-03-11 00:18:00 [facility] [place] Diastolic (mm Hg) 2013-03-11 00:18:00 [facility] [place] Diastolic (mm Hg) 2013-03-11 00:00:00 [facility] [place] Systolic (mm Hg) 2013-03-11 00:00:00 [place] [facility] [place] Respitory Rate 2013-03-11 00:00:00 [facility] Diastolic (mm Hg) 2013-03-10 23:45:00 [facility] [place] Systolic (mm Hg) 2013-03-10 23:45:00 [place] [facility] [place] Respitory Rate 2013-03-10 23:45:00 [facility] [place] Heart Rate 2013-03-10 17:31:00 [facility] [place] Weight 2013-03-10 17:31:00 [facility] [place] Height 2013-03-10 17:31:00 175.26 cm [facility] [place] Weight 2013-03-02 20:01:00 [facility] [place] Height 2013-03-02 20:01:00 175.26 cm [facility] Diastolic (mm Hg) 2012-07-25 14:10:00 [facility] [place] Systolic (mm Hg) 2012-07-25 14:10:00 [facility] [facility] [place] Temperature Oral (F) 2012-07-25 14:10:00 97.1 F [facility] [place] Systolic (mm Hg) 2012-07-25 02:15:00 [place] [facility] [place] Diastolic (mm Hg) 2012-07-25 02:15:00 [facility] Respitory Rate 2012-07-25 02:15:00 [facility] [place] Temperature Oral (F) 2012-07-25 02:15:00 97.6 F [facility] [place] Temperature Oral (F) 2012-07-24 18:09:00 97.3 F [facility] Diastolic (mm Hg) 2012-07-24 18:09:00 [facility] [place] Systolic (mm Hg) 2012-07-24 18:09:00 [facility] [facility] Weight 2012-07-24 14:33:00 [facility] Height 2012-07-24 14:33:00 175.26 cm [facility] Procedures Procedure Date / Time Performing Clinician Source Performed US RETROPERITONEAL 2022-07-30 15:36:03 Dianna [facility] COMPLETE [facility] NOTICE OF PRIVACY 2022-07-30 14:49:38 Doctor Unassigned, [facility] PRACTICES [place] [facility] CONSENT/REFUSAL FOR 2022-07-30 14:49:11 Doctor Unassigned, [facility] DIAGNOSIS AND TREATMENT [place] [facility] ASSIGNMENT OF BENEFITS 2022-07-30 14:48:56 Doctor Unassigned, [facility] [place] [facility] ASSIGNMENT OF BENEFITS 2022-03-25 18:54:22 Doctor Unassigned, [facility] [place] [facility] Lobectomy of brain 2004-02-18 00:00:00 [facility] - Open reduction and Martín Elias internal fixation of fracture Encounters Start End Encounter Admission Attending Care Care Encounter Source Date/Time Date/Time Type Type Clinicians Facility Department ID 2022-10-02 2022-10-02 Patient Soco Mayen [facility] 1.2.840.114 [id number] [facility] 00:00:00 00:00:00 Secure [facility] 350.1.13.10 ity of [place] 4.2.7.2.[address] [facility] [id number] [place] [address] Branch OFFICE BUILDING 2022-09-25 2022-09-25 Outpatient R SOCO MAYEN [facility] [id number] Univers 12:20:00 12:20:00 ity of [facility] 2022-09-25 2022-09-25 Patient Anderson [facility] 1.2.840.114 [id number] Univers 00:00:00 00:00:00 Outreach Kelli Deutsch HEALTH 350.1.13.10 i ty of [place] 4.2.7.2.686 Dimitry as MARTINEZ?BLEA [id number] [facility] [address] MEDICAL OFFICE BUILDING 2022-09-24 2022-09-24 Marketing Manager Lab, [facility] 1.2.840.1 [id number] Univers 13:00:00 13:15:00 Visit Radha Bustamante Lisa HEALTH 350.1 .13.10 ity of [place] 4.2.7.2.686 Dimitry as MARTINEZ?BLEA [id number] [facility] [address] [facility] OFFICE BUILDING 2022-09-24 2022-09-24 Outpatient R DIANNA [facility] [id number] Univers 10:20:00 11:10:13 , RADHA it y of [facility] 2022-09-24 2022-09-24 Office [facility] 1.2.840.114 [id number] Univers 10:20:00 11:10:13 Visit , Radha ROBERTS 350.1.13.10 ity of [place] 4.2.7.2.686 Dimitry as MARTINEZ?BLEA [id number] [address] OFFICE BUILDING 2022-09-24 2022-09-24 Telephone Soco Mayen [facility] 1.2.840.114 [id number] Univers 00:00:00 00:00:00 S HEALTH 350.1.13.10 [place] [id number] [place] [address] [place] OFFICE BUILDING 2022-09-23 2022-09-23 Outpatient R SOCO MAYEN [facility] [id number] Univers 10:20:00 11:28:52 ity of [facility] 2022-09-23 2022-09-23 Office Soco Mayen [facility] 1.2.840.114 [id number] [facility] 10:20:00 11:28:52 Visit S HEALTH 350.1.13.10 [place] [id number] [facility] 092 Branch OFFICE BUILDING 2022-07-30 2022-07-30 Outpatient R [facility] [id number] Univers 09:53:33 23:59:00 , RADHA it y of [facility] 2022-07-30 2022-07-30 [facility] 1.2.840.114 [id number] [facility] 09:45:00 23:59:00 Encounter , Radha ORO 350.1.13.10 ity of [place] [id number] [facility] [address] 2022-07-21 2022-07-21 [facility] 1.2.840.114 [id number] Univers 00:00:00 00:00:00 Wondiful A HEALTH 350.1.13.10 ity of [place] 4.2.7.2.686 Dimitry as MARTINEZ?BLEA [phone] [address] OFFICE BUILDING 2022-06-27 2022-06-27 [facility] 1.2.840.114 [id number] [facility] 00:00:00 00:00:00 Management , Radha HEALTH 350.1.13.10 ity of [place] 4.2.7.2.686 Dimitry as MARTINEZ?BLEA [id number] [address] MEDICAL OFFICE BUILDING 2022-06-25 2022-06-25 Outpatient R [facility] [id number] Univers 13:00:00 14:21:05 , RADHA it y of [facility] 2022-06-25 2022-06-25 Office [facility] 1.2.840.114 [id number] [facility] 13:00:00 14:21:05 Visit , Radha HEALTH 350.1.13.10 ity of [place] 4.2.7.2.686 Dimitry as MARTINEZ?BLEA [phone] [address] MEDICAL OFFICE BUILDING 2022-06-24 2022-06-24 Marketing Manager Draw, [facility] Lab [facility] 1.2.8 40.114 [id number] Univers 12:45:00 13:00:00 Visit Soco Mayen S HEALTH 350.1.13.10 [place] [id number] [facility] [address] OFFICE BUILDING 2022-06-24 2022-06-24 Outpatient R SOCO MAYEN [facility] [id number] Univers 12:20:00 12:34:11 ity of [facility] 2022-06-24 2022-06-24 Office Faheem Soco [facility] 1.2.840.114 [id number] Univers 12:20:00 12:34:11 Visit S HEALTH 350.1.13.10 [place] [id number] [address] OFFICE [facility] 2022-06-24 2022-06-24 Telephone Soco Mayen [facility] 1.2.840.114 [id number] Univers 00:00:00 00:00:00 S HEALTH 350.1.13.10 [place] [id number] [address] OFFICE [facility] 2022-05-03 2022-05-03 Estela Hurtado [facility] 1.2.840.114 [id number] Univers 00:00:00 00:00:00 Slick HEALTH 350.1.13.10 it y of [place] 4.2.7.2.686 Dimitry as MARTINEZ?BLEA [id number] Ak demar DE LEÓN [address] [place] [address] OFFICE [facility] 2022-04-16 2022-04-16 Outpatient R ROSA [facility] [id number] Univers 10:00:00 10:00:00 PETER itricardo [facility] 2022-03-26 2022-03-26 Telephone Faheem Soco [facility] 1.2.840.114 [id number] Univers 00:00:00 00:00:00 S HEALTH 350.1.13.10 [place] [id number] [place] [address] [place] OFFICE BUILDING 2022-03-25 2022-03-25 Outpatient R SOCO MAYEN [facility] [id number] Univers 13:00:00 13:18:59 ity of [facility] 2022-03-25 2022-03-25 Office Soco Mayen [facility] 1.2.840.114 [id number] Univers 13:00:00 13:18:59 Visit S HEALTH 350.1.13.10 [place] [id number] [address] OFFICE BUILDING 2022-03-25 2022-03-25 Orders Doctor AMANDA 1.2.840.114 [id number] Univers 00:00:00 00:00:00 Only Unassigned, JAI 350.1.13.10 ity of [place] [facility] 4.2.7.2.686 Dimitry as [id number] [address] 2022-02-04 2022-02-04 [facility] 1.2.840.114 [id number] Univers 00:00:00 00:00:00 Wondiful A HEALTH 350.1.13.10 ity of [place] 4.2.7.2.686 Dimitry as MARTINEZ?BLEA [id number] Ak demar [facility] [address] [facility] OFFICE BUILDING 2021-12-20 2021-12-20 Marketing Manager Pcp-Lab [facility] 1.2.840.114 [id number] Univers 15:00:00 15:15:00 Visit Soco Mayen PRIMARY 350.1.13.10 [place] [facility] [id number] [address] 2021-12-20 2021-12-20 Outpatient R SOCO MAYEN [facility] [id number] Univers 15:00:00 15:00:00 ity of [facility] 2021-12-20 2021-12-20 Office Soco Mayen [facility] 1.2.840.114 [id number] Univers 14:20:00 14:49:18 Visit S PRIMARY 350.1.13.10 it y [place] [id number] [address] 2021-11-05 2021-11-05 Refill Charisma [facility] 1.2.840.114 [id number] Univers 00:00:00 00:00:00 Wondiful A HEALTH 350.1.13.10 ity of [place] 4.2.7.2.686 Dimitry as MARTINEZ?BLEA [id number] [address] OFFICE [facility] 2021-07-12 2021-07-12 Office Soco Mayen [facility] 1.2.840.114 [id number] Univers 11:20:00 11:40:00 Visit S Y HEALTH 350.1.13.10 i ty of [place] [id number] [address] 2021-07-12 2021-07-12 Outpatient R SOCO MAYEN [facility] [id number] Univers 11:20:00 11:20:00 ity of [facility] 2021-07-12 2021-07-12 Outpatient R SOCO MAYEN [facility] [id number] Univers 11:20:00 11:20:00 ity of [facility] 2021-07-12 2021-07-12 Outpatient R SOCO MAYEN [facility] [id number] Univers 11:20:00 11:20:00 ity [facility] 2021-05-31 2021-05-31 Telephone Soco Mayen [facility] 1.2.840.11 [id number] Univers 00:00:00 00:00:00 S Y HEALTH 350.1.13.10 i ty [place] [id number] [address] 2021-05-11 2021-05-11 Office [facility] 1.2.840.114 [id number] Univers 09:30:00 10:21:40 Visit Wondiful A HEALTH 350.1.13.10 ity of [place] 4.2.7.2.686 Dimitry as MARTINEZ?BLEA [id number] [address] OFFICE BUILDING 2021-05-11 2021-05-11 Outpatient R CHARISMA, [facility] [id number] Univers 09:30:00 10:21:40 WONDIFUL ity o f [facility] 2021-05-11 2021-05-11 Outpatient R CHARISMA [facility] [id number] Univers 09:30:00 09:30:00 WONDIFUL ity o f [facility] 2021-05-11 2021-05-11 Outpatient R CHARISMA [facility] [id number] Univers 09:30:00 09:30:00 WONDIFUL ity o f [facility] 2021-05-11 2021-05-11 Outpatient R CHARISMA [facility] [id number] Univers 09:30:00 09:30:00 WONDIFUL ity o f [facility] 2021-05-10 2021-05-10 [facility] 1.2.840.114 [id number] Univers 00:00:00 00:00:00 Wondiful A HEALTH 350.1.13.10 ity [facility] 4.2.7.2.686 Dimitry as MARTINEZ?BLEA [id number] [address] MEDICAL OFFICE BUILDING 2021-05-04 2021-05-04 Pre Visit ARTHUR Vela 1.2.987.967 [id number] Univers 00:00:00 00:00:00 Outreach Brit BERUMEN 350.1.13.10 [place] [id number] [facility] [address] 2021-03-15 2021-03-15 Marketing Manager [facility] 1.2.840.114 [id number] Univers 12:15:00 12:30:00 Visit Soco Mayen S Y HEALTH 350.1.13.10 ity of [place] [id number] [facility] [address] 2021-03-15 2021-03-15 Outpatient R SOCO MAYEN [facility] [id number] Univers 12:15:00 12:15:00 ity of [facility] 2021-03-15 2021-03-15 Office Soco Mayen 1.2.840.114 [id number] [facility] 10:30:00 11:00:00 Visit [facility] 350.1.13.10 [place] [id number] [address] 2021-03-15 2021-03-15 Outpatient R SOCO MAYEN [facility] [id number] Univers 10:30:00 10:30:00 ity of [facility] 2021-03-15 2021-03-15 Telephone Soco Mayen 1.2.840.11 [id number] [facility] 00:00:00 00:00:00 [facility] 350.1.13.10 [id number] [phone] [address] 2021-03-01 2021-03-01 Case [facility] 1.2.840.114 [id number] Univers 00:00:00 00:00:00 Management Wondiful A HEALTH 350.1.13.10 [facility] 4.2.7.2.686 Dimitry as MARTINEZ?BLEA [phone] [facility] 044 [facility] OFFICE [facility] 2021-02-26 2021-02-26 Marketing Manager Lab, [facility] 1.2.840.1 14 [id number] Univers 16:15:00 16:17:30 Visit Charisma Brandy [facility] 350.1.13.1 0 [facility] 4.2.7.2.686 Dimitry as MARTINEZ?BLEA [phone] [facility] [address] MEDICAL OFFICE BUILDING 2021-02-26 2021-02-26 Outpatient R CHARISMA [facility] [id number] Univers 16:15:00 16:15:00 WONDIFUL ity o f [facility] 2021-02-26 2021-02-26 Outpatient R CHARISMA [facility] [id number] Univers 15:30:00 16:07:53 WONDIFUL ity o f [facility] 2021-02-26 2021-02-26 [facility] 1.2.840.114 [id number] Univers 15:30:00 16:07:53 Visit Brandy Navarro Inthe[place]lo 350.1.13.10 it[place] of [place] 4.2.7.2.686 Dimitry as MARTINEZ?BLEA [phone] Ak demar [address] MEDICAL OFFICE BUILDING 2021-02-26 2021-02-26 Orders Doctor AMANDA 1.2.840.114 [id number] Univers 00:00:00 00:00:00 Only Unassigned, JAI 350.1.13.10 ity of [place] [facility] 4.2.7.2.686 Dimitry as [phone] [facility] [address] 2021-02-13 2021-02-13 Transition JOSESITO WaggonerPonce 1.2.840.114 [id number] Univers 00:00:00 00:00:00 of Care Moniqeu VAZQUEZY 350.1.13.10 [place] [phone] [facility] [address] 2021-02-09 2021-02-11 Inpatient U [facility] [id number] Univers 07:53:00 13:30:00 BECCA ity o f [facility] 2021-02-09 2021-02-11 Hospital Chayito Merida 1.2.840.114 [id number] Univers 07:53:00 13:30:00 Encounter Becca Delgado 350.1.13 .10 ity of HOSPITAL 4.2.7.2.686 Dimitry as [phone] [facility] [address] 2021-02-09 2021-02-11 Inpatient U [facility] [id number] Univers 07:53:00 13:30:00 BECCA ity o f [facility] 2021-01-26 2021-01-26 Outpatient R SOCO MAYEN [facility] [id number] Univers 15:45:00 15:45:00 ity of [facility] 2021-01-26 2021-01-26 Marketing Manager 2, Adc Lab [facility] 1.2.840.114 [id number] Univers 15:21:35 15:31:14 Visit Soco Mayen 350.1.13.10 it[place] of [place] [phone] Me dical NAL [address] BUILDING 2021-01-24 2021-01-24 Patient Soco Mayen [facility] 1.2.840.114 [id number] Univers 00:00:00 00:00:00 Secure Ms S Y HEALTH 350.1.13.10 [place] [phone] [facility] [address] 2020-12-07 2020-12-07 Marketing Manager [facility] 1.2.840.114 [id number] Univers 11:44:40 11:48:31 Visit Soco Mayen S Y HEALTH 350.1.13.10 [place] [phone] [facility] [address] 2020-12-07 2020-12-07 Office Soco Mayen [facility] 1.2.840.114 [id number] Univers 10:48:17 11:42:33 Visit S Y HEALTH 350.1.13.10 i ty of [place] [phone] [facility] [address] 2020-12-07 2020-12-07 Outpatient R SOCO MAYEN [facility] 110 [id number] Univers 10:30:00 10:30:00 ity of [facility] 2020-11-22 2020-11-22 Case Charisma [facility] 1.2.840.114 [id number] [facility] Univers 00:00:00 00:00:00 Management Wondiful A Health 350.1.13.10 ity of [place] 4.2.7.2.686 Dimitry as Martinez?Blea [phone] Ak dical kney [address] Medical Office Building 2020-11-13 2020-11-13 Marketing Manager Lab, [facility] 1.2.840.1 14 [id number] Univers 10:05:18 10:20:18 Visit Nitin Zafarful A Health 350.1.13.1 0 ity of [place] 4.2.7.2.686 Dimitry as Martinez?Blea [phone] Ak demar de león [address] Medical Office Building 2020-11-13 2020-11-13 Office Charisma [facility] 1.2.840.114 [id number] Univers 09:15:13 10:05:55 Visit Wondiful A Health 350.1.13.10 ity of [place] 4.2.7.2.686 Dimitry as Martinez?Blea [phone] Ak demar [facility] [address] Medical Office Building 2020-11-13 2020-11-13 Outpatient R CHARISMA [facility] [id number] Univers 09:15:00 09:15:00 WONDIFUL ity o f [facility] 2020-10-03 2020-10-03 Outpatient R CHARISMA [facility] [id number] Univers 10:00:00 10:00:00 WONDIFUL ity o f [facility] 2020-09-11 2020-09-11 Outpatient R CHARISMA [facility] [id number] Univers 15:30:00 15:30:00 WONDIFUL ity o f [facility] 2020-09-04 2020-09-04 Outpatient R CHARISMA [facility] [id number] Univers 14:15:00 14:15:00 WONDIFUL ity o f [facility] 2020-08-31 2020-08-31 Outpatient R SOCO MAYEN [facility] [id number] Univers 12:00:00 12:00:00 ity of [facility] 2020-08-30 2020-08-30 Outpatient R ALEX [facility] [id number] Univers 10:00:00 10:00:00 RISHI ity of [facility] 2020-08-30 2020-08-30 Telephone Soco Mayen [facility] 1.2.840.114 [id number] Univers 00:00:00 00:00:00 S Health 350.1.13.10 it y of [place] [phone] [facility] [address] Office Building 2020-08-14 2020-08-14 Emergency X Shilo NICK [facility] ERT [id number] Univers 12:41:00 12:41:00 ity of [facility] 2016-08-24 2016-08-26 Inpatient nullFlavo [facility] [id number] Memoria 02:45:00 19:12:00 r Kobi 67 l [facility] 2016-08-23 2016-08-26 Outpatient Smart, [facility] [id number] 21:45:00 14:12:00 Zaire Soares 2016-08-06 2016-08-08 Observatio nullFlavo [facility] [id number] Memoria 23:49:00 16:15:00 n r Kobi 71 [facility] 2016-08-06 2016-08-08 Outpatient Lula, [facility] [id number] 18:49:00 11:15:00 Logan Rizvi 2014-10-07 2014-10-08 Outpatient nullFlavo [facility] [id number] Memoria 12:17:00 04:59:00 r Kobi 02 [facility] 2014-10-07 2014-10-07 Outpatient Vega, [facility] [id number] 07:17:00 23:59:00 Yonny 02 [place] 2013-09-24 2013-12-24 Research nullFlavo [facility] [id number] Memoria 15:00:00 05:59:59 Patient r Kobi 19 [facility] 2013-09-24 2013-12-23 Outpatient Ferrari, 2.16.840. 2.16.840.1. 3 [id number] 10:00:00 23:59:59 Yonny [id number]. [id number] 19 [place] 3.615.0.1 5.0.844 82 2553-05-29 2013-10-14 Research [facility]Flavo [facility] [id number] Memoria 19:00:00 04:59:59 Patient r Kobi 48 [facility] 2013-07-15 2013-10-13 Outpatient Vega, 2.16.840. 2.16.840.1. 3 [id number] 14:00:00 23:59:59 Yonny 1.079674. [id number] 48 [place] 3.615.0.1 5.0.187 22 1403-02-25 2013-04-17 Inpatient nullFlavo [facility] [id number] Memoria 14:06:00 16:05:00 [facility] [phone] [address] 2013-04-13 2013-04-17 Outpatient Vega, 2.16.840. 2.16.840.1. 3 [id number] 08:06:00 10:05:00 Yonny 1.479075. [id number] 52 [place] 3.615.0.1 5.0.914 23 0894-02-25 2013-04-13 Inpatient nullFlavo [facility] [id number] Memoria 08:06:00 08:06:00 [facility] 52 [facility] 2013-03-12 2013-03-13 Outpatient 2.16.840. 2.16.840.1. 3 [id number] Memoria 11:46:00 13:20:00 [id number]. [id number] l 3.615.0.1 5.0.100 Jim n 00 [facility]osp[facility] 2013-03-12 2013-03-13 CARL nullFlavo [facility] [id number] Memoria 11:46:00 13:20:00 [facility] 01 [facility] 2013-03-10 2013-03-10 Outpatient 2.16.840. 2.16.840.1. 3 [id number] Memoria 09:55:00 23:59:00 [id number]. [id number] l 3.615.0.1 5.0.100 Jim n 00 Hospita 2013-03-10 2013-03-10 DS nullFlavo [facility] [id number] Memoria 09:55:00 23:59:00 [facility] 00 [facility] 2012-07-24 2012-07-25 CARL nullFlavo [facility] [id number] Memoria 09:17:00 11:50:00 [facility] 21 [facility] Results Test Description Test Time Test Comments Results Result Comments Source TOXICOLOGY 2016-08-26 14:10:00 Test Item Value Reference Range Interpretation Comme nts Phenytoin Free (test code = Phenytoin Free) 2.20 1.00-2.00 [facility]SOJT0205-84-35 14:10:00 Test Item Value Reference Range Interpretation Comments Phenytoin Free (test code = Phenytoin 2.20 1.00-2.00 Free) [place] 30514017-07-10 14:10:00 Test Item Value Reference Range Interpretation Comments Phenytoin Free (test code = Phenytoin 2.20 1.00-2.00 Free) [place] 30514017-07-10 14:10:00 Test Item Value Reference Range Interpretation Comments Phenytoin Free (test code = Phenytoin 2.20 1.00-2.00 Free) [place] 30514017-07-10 14:10:00 Test Item Value Reference Range Interpretation Comments Phenytoin Free (test code = Phenytoin 2.20 1.00-2.00 Free) [place] 30514017-07-10 14:10:00 Test Item Value Reference Range Interpretation Comments Phenytoin Free (test code = Phenytoin 2.20 1.00-2.00 Free) [facility]EFV6953-79-98 10:25:00 Test Item Value Reference Range Interpretation Comments Lymphocytes (test code = Lymphocytes) 26.2 20.0-40.0 [facility]anoMcgftwsZHTJXKUAXC6613-38-86 10:25:00 Test Item Value Reference Range Interpretation Comments Basophils (test code = 0.7 See_Comment [Aut omated message] The Basophils) system which ge nerated this result tra nsmitted reference range : <=1.0. The reference r yadira was not used to int erpret this result as normal/abnormal . [facility]anoItkjszrYTNUQWGPIC2105-03-97 10:25:00 Test Item Value Reference Range Interpretation Comments Eosinophils (test code = 3.2 See_Comment [A utomated message] The Eosinophils) system which ge nerated this result tra nsmitted reference range : <=4.0. The reference r yadira was not used to int erpret this result as normal/abnormal . [facility]2017-07-10 10:25:00 Test Item Value Reference Range Interpretation Comments Ca Norm WB (test code = Ca Norm WB) 1.12 1.05-1.25 [facility]2017-07-10 10:25:00 Test Item Value Reference Range Interpretation Comments Ca Ion WB (test code = Ca Ion WB) 1.13 1.05-1.25 [facility]2017-07-10 10:25:00 Test Item Value Reference Range Interpretation Comments eGFR (test code = eGFR) 118 [facility]2017-07-10 10:25:00 Test Item Value Reference Range Interpretation Comments Potassium Lvl (test code = Potassium 3.3 3.5-5.1 Lvl) [facility]2017-07-10 10:25:00 Test Item Value Reference Range Interpretation Comments Chloride Lvl (test code = Chloride Lvl) 108 95-109 [facility]2017-07-10 10:25:00 Test Item Value Reference Range Interpretation Comments Calcium Lvl (test code = Calcium Lvl) 8.8 8.5-10.5 [facility]2017-07-10 10:25:00 Test Item Value Reference Range Interpretation Comments CO2 (test code = CO2) 19 24-32 [facility]2017-07-10 10:25:00 Test Item Value Reference Range Interpretation Comments Creatinine Lvl (test code = Creatinine 0.88 0.50-1.40 Lvl) [facility]2017-07-10 10:25:00 Test Item Value Reference Range Interpretation Comments BUN (test code = BUN) 7 7-22 [facility]2017-07-10 10:25:00 Test Item Value Reference Range Interpretation Comments Sodium Lvl (test code = Sodium Lvl) 140 135-145 [facility]2017-07-10 10:25:00 Test Item Value Reference Range Interpretation Comments Glucose Lvl (test code = Glucose Lvl) 74 70-99 [facility]2017-07-10 10:25:00 Test Item Value Reference Range Interpretation Comments AGAP (test code = AGAP) 16.3 10.0-20.0 [facility]2017-07-10 10:25:00 Test Item Value Reference Range Interpretation Comments Magnesium Lvl (test code = Magnesium 2.0 1.8-2.4 Lvl) [facility]2017-07-10 10:25:00 Test Item Value Reference Range Interpretation Comments Phosphorus (test code = Phosphorus) 2.6 2.5-4.5 [facility]XSW[facility]AGZHD7951-34-42 10:25:00 Test Item Value Reference Range Interpretation Comments MPV (test code = MPV) 7.8 7.4-10.4 [facility]anoLywfktxULBBECPDQG5110-19-80 10:25:00 Test Item Value Reference Range Interpretation Comments MCH (test code = MCH) 31.2 pg 27.0-31.0 [facility]anoNxaxdahTHJJYXWBUL1985-17-78 10:25:00 Test Item Value Reference Range Interpretation Comments MCHC (test code = MCHC) 33.7 32.0-36.0 [facility]anoTuyvphiJKJDKXCXQA7657-40-28 10:25:00 Test Item Value Reference Range Interpretation Comments RDW (test code = RDW) 13.5 11.5-14.5 [facility]anoOkxotfwTWVLQBBBOX1162-46-67 10:25:00 Test Item Value Reference Range Interpretation Comments Platelet (test code = Platelet) 322 133-450 [facility]anoGkxsjjbPFQKSIQJQR6106-96-00 10:25:00 Test Item Value Reference Range Interpretation Comments Hct (test code = Hct) 40.5 42.0-54.0 [facility]anoApjjyboZFNGOWQNJC0203-05-75 10:25:00 Test Item Value Reference Range Interpretation Comments WBC (test code = WBC) 10.9 3.7-10.4 [facility]anoOfetvqfWEXHKLIEDX4553-72-49 10:25:00 Test Item Value Reference Range Interpretation Comments RBC (test code = RBC) 4.37 4.70-6.10 [facility]anoVgurywmRAUISXFUMS0137-55-94 10:25:00 Test Item Value Reference Range Interpretation Comments Hgb (test code = Hgb) 13.6 14.0-18.0 [facility]anoLlsdcgxANGCHCOPPZ3715-38-98 10:25:00 Test Item Value Reference Range Interpretation Comments MCV (test code = MCV) 92.7 80.0-94.0 [facility]anoGsnlqfuCBCXJTJMIM2939-51-44 10:25:00 Test Item Value Reference Range Interpretation Comments Basophils # (test code 0.1 See_Comment [Aut omated message] The = Basophils #) system which generated this result tra nsmitted reference range : <=0.2. The reference r yadira was not used to int erpret this result as normal/abnormal . [facility]anoIwbmugjBTORVSBUXE6719-78-36 10:25:00 Test Item Value Reference Range Interpretation Comments Eosinophils # (test code 0.3 See_Comment [A utomated message] The = Eosinophils #) system whic h generated this result tra nsmitted reference range : <=0.5. The reference r yadira was not used to int erpret this result as normal/abnormal . [facility]anoNfhdfspOWRJELRVOP8389-56-17 10:25:00 Test Item Value Reference Range Interpretation Comments Lymphocytes # (test code = Lymphocytes 2.9 1.0-5.5 #) [facility]anoCyqlakcJLHPNGPVMF0383-06-47 10:25:00 Test Item Value Reference Range Interpretation Comments Monocytes # (test code 1.3 See_Comment [Aut omated message] The = Monocytes #) system which generated this result tra nsmitted reference range : <=0.8. The reference r yadira was not used to int erpret this result as normal/abnormal . [facility]anoXlcercdMIRYASWJOF2640-94-54 10:25:00 Test Item Value Reference Range Interpretation Comments Monocytes (test code = Monocytes) 11.6 2.0-12.0 [facility]anoPsxcklaBIUQEMOXWG8594-22-27 10:25:00 Test Item Value Reference Range Interpretation Comments Segs-Bands # (test code = Segs-Bands #) 6.4 1.5-8.1 [facility]anoGohzeycNPRXGDXHUV4989-72-61 10:25:00 Test Item Value Reference Range Interpretation Comments Segs (test code = Segs) 58.3 45.0-75.0 [facility]anoVjwkoywWCXHDVGEUL8739-73-73 10:25:00 Test Item Value Reference Range Interpretation Comments Lymphocytes (test code = Lymphocytes) 26.2 20.0-40.0 [facility]anoNksthszNHFFRGUDDH1710-90-40 10:25:00 Test Item Value Reference Range Interpretation Comments Basophils (test code = 0.7 See_Comment [Aut omated message] The Basophils) system which ge nerated this result tra nsmitted reference range : <=1.0. The reference r yadira was not used to int erpret this result as normal/abnormal . [facility]anoYgrsgemCFRUKCAUYA1569-45-07 10:25:00 Test Item Value Reference Range Interpretation Comments Eosinophils (test code = 3.2 See_Comment [A utomated message] The Eosinophils) system which ge nerated this result tra nsmitted reference range : <=4.0. The reference r yadira was not used to int erpret this result as normal/abnormal . [facility]RO[facility] LJTKJJC5590-13-28 10:25:00 Test Item Value Reference Range Interpretation Comments Ca Norm WB (test code = Ca Norm WB) 1.12 1.05-1.25 [facility]villeROID MGANVCL8599-50-88 10:25:00 Test Item Value Reference Range Interpretation Comments Ca Ion WB (test code = Ca Ion WB) 1.13 1.05-1.25 [facility]2017-07-10 10:25:00 Test Item Value Reference Range Interpretation Comments eGFR (test code = eGFR) 118 [facility]2017-07-10 10:25:00 Test Item Value Reference Range Interpretation Comments Potassium Lvl (test code = Potassium 3.3 3.5-5.1 Lvl) [facility]2017-07-10 10:25:00 Test Item Value Reference Range Interpretation Comments Chloride Lvl (test code = Chloride Lvl) 108 95-109 [facility]2017-07-10 10:25:00 Test Item Value Reference Range Interpretation Comments Calcium Lvl (test code = Calcium Lvl) 8.8 8.5-10.5 [facility]2017-07-10 10:25:00 Test Item Value Reference Range Interpretation Comments CO2 (test code = CO2) 19 24-32 [facility]2017-07-10 10:25:00 Test Item Value Reference Range Interpretation Comments Creatinine Lvl (test code = Creatinine 0.88 0.50-1.40 Lvl) [facility]2017-07-10 10:25:00 Test Item Value Reference Range Interpretation Comments BUN (test code = BUN) 7 7-22 [facility]2017-07-10 10:25:00 Test Item Value Reference Range Interpretation Comments Sodium Lvl (test code = Sodium Lvl) 140 135-145 [facility]2017-07-10 10:25:00 Test Item Value Reference Range Interpretation Comments Glucose Lvl (test code = Glucose Lvl) 74 70-99 [facility]2017-07-10 10:25:00 Test Item Value Reference Range Interpretation Comments AGAP (test code = AGAP) 16.3 10.0-20.0 [facility]2017-07-10 10:25:00 Test Item Value Reference Range Interpretation Comments Magnesium Lvl (test code = Magnesium 2.0 1.8-2.4 Lvl) [facility]2017-07-10 10:25:00 Test Item Value Reference Range Interpretation Comments Phosphorus (test code = Phosphorus) 2.6 2.5-4.5 [facility]anoNwmffnuMCESCCUKAJ5294-85-11 10:25:00 Test Item Value Reference Range Interpretation Comments MPV (test code = MPV) 7.8 7.4-10.4 [facility]anoJbrybqxMZHAQGCKSE2165-15-92 10:25:00 Test Item Value Reference Range Interpretation Comments MCH (test code = MCH) 31.2 pg 27.0-31.0 [facility] PlanoAecsolbHVKBOQWWXE4955-79-54 10:25:00 Test Item Value Reference Range Interpretation Comments MCHC (test code = MCHC) 33.7 32.0-36.0 [facility]anoLfqwzlsWDQRGVFNNW7898-53-96 10:25:00 Test Item Value Reference Range Interpretation Comments RDW (test code = RDW) 13.5 11.5-14.5 [facility]anoAoujlyvEULYYXLYNX4008-66-28 10:25:00 Test Item Value Reference Range Interpretation Comments Platelet (test code = Platelet) 322 133-450 [facility]anoLczjmdnRCVWBJOJZG6416-67-93 10:25:00 Test Item Value Reference Range Interpretation Comments Hct (test code = Hct) 40.5 42.0-54.0 [facility]anoSeabwhxLNMBTMAGXD6278-07-36 10:25:00 Test Item Value Reference Range Interpretation Comments WBC (test code = WBC) 10.9 3.7-10.4 [facility]anoJfrzysoRQHBMDWNFH5129-04-53 10:25:00 Test Item Value Reference Range Interpretation Comments RBC (test code = RBC) 4.37 4.70-6.10 [facility]anoWwkznkwOFTBSJXDPS5853-84-70 10:25:00 Test Item Value Reference Range Interpretation Comments Hgb (test code = Hgb) 13.6 14.0-18.0 [facility]anoJvrytczGMAJGCSLKC6018-41-06 10:25:00 Test Item Value Reference Range Interpretation Comments MCV (test code = MCV) 92.7 80.0-94.0 [facility]anoRajlbnaFMLOJPWHZU0913-73-24 10:25:00 Test Item Value Reference Range Interpretation Comments Basophils # (test code 0.1 See_Comment [Aut omated message] The = Basophils #) system which generated this result tra nsmitted reference range : <=0.2. The reference r yadira was not used to int erpret this result as normal/abnormal . [facility] PlanoUxqnimbEGVWIFTPEI6455-11-40 10:25:00 Test Item Value Reference Range Interpretation Comments Eosinophils # (test code 0.3 See_Comment [A utomated message] The = Eosinophils #) system whic h generated this result tra nsmitted reference range : <=0.5. The reference r yadira was not used to int erpret this result as normal/abnormal . [facility]anoIgcokomZLXETFWIWU3978-88-38 10:25:00 Test Item Value Reference Range Interpretation Comments Lymphocytes # (test code = Lymphocytes 2.9 1.0-5.5 #) [facility]anoBjjvfflBLFKIRABTK7601-77-83 10:25:00 Test Item Value Reference Range Interpretation Comments Monocytes # (test code 1.3 See_Comment [Aut omated message] The = Monocytes #) system which generated this result tra nsmitted reference range : <=0.8. The reference r yadira was not used to int erpret this result as normal/abnormal . [facility]anoXvbpnlfNFLOXAZTXZ8424-17-56 10:25:00 Test Item Value Reference Range Interpretation Comments Monocytes (test code = Monocytes) 11.6 2.0-12.0 [facility]anoKwdatsrKYOIMEAENX5585-38-05 10:25:00 Test Item Value Reference Range Interpretation Comments Segs-Bands # (test code = Segs-Bands #) 6.4 1.5-8.1 [facility]anoLvncdgbCHGGXHBZTH7457-14-02 10:25:00 Test Item Value Reference Range Interpretation Comments Segs (test code = Segs) 58.3 45.0-75.0 [facility]anoQlbjypqKMTTSDIGZT0742-91-75 10:25:00 Test Item Value Reference Range Interpretation Comments Lymphocytes (test code = Lymphocytes) 26.2 20.0-40.0 [facility]anoMfnnrosGPSPWUSSXE3585-36-29 10:25:00 Test Item Value Reference Range Interpretation Comments Basophils (test code = 0.7 See_Comment [Aut omated message] The Basophils) system which ge nerated this result tra nsmitted reference range : <=1.0. The reference r yadira was not used to int erpret this result as normal/abnormal . [facility] SystemWgnqtrvTUFUVCBTIU6228-39-69 10:25:00 Test Item Value Reference Range Interpretation Comments Eosinophils (test code = 3.2 See_Comment [A utomated message] The Eosinophils) system which ge nerated this result tra nsmitted reference range : <=4.0. The reference r yadira was not used to int erpret this result as normal/abnormal . [facility] QXRYNUG8088-36-41 10:25:00 Test Item Value Reference Range Interpretation Comments Ca Norm WB (test code = Ca Norm WB) 1.12 1.05-1.25 [facility]RO[facility] LSCRAYY5737-80-96 10:25:00 Test Item Value Reference Range Interpretation Comments Ca Ion WB (test code = Ca Ion WB) 1.13 1.05-1.25 [facility]2017-07-10 10:25:00 Test Item Value Reference Range Interpretation Comments eGFR (test code = eGFR) 118 [facility]2017-07-10 10:25:00 Test Item Value Reference Range Interpretation Comments Potassium Lvl (test code = Potassium 3.3 3.5-5.1 Lvl) [facility]2017-07-10 10:25:00 Test Item Value Reference Range Interpretation Comments Chloride Lvl (test code = Chloride Lvl) 108 95-109 [facility]2017-07-10 10:25:00 Test Item Value Reference Range Interpretation Comments Calcium Lvl (test code = Calcium Lvl) 8.8 8.5-10.5 [facility]2017-07-10 10:25:00 Test Item Value Reference Range Interpretation Comments CO2 (test code = CO2) 19 24-32 [facility]2017-07-10 10:25:00 Test Item Value Reference Range Interpretation Comments Creatinine Lvl (test code = Creatinine 0.88 0.50-1.40 Lvl) [facility]2017-07-10 10:25:00 Test Item Value Reference Range Interpretation Comments BUN (test code = BUN) 7 7-22 [facility]2017-07-10 10:25:00 Test Item Value Reference Range Interpretation Comments Sodium Lvl (test code = Sodium Lvl) 140 135-145 [facility]2017-07-10 10:25:00 Test Item Value Reference Range Interpretation Comments Glucose Lvl (test code = Glucose Lvl) 74 70-99 [facility]2017-07-10 10:25:00 Test Item Value Reference Range Interpretation Comments AGAP (test code = AGAP) 16.3 10.0-20.0 [facility]2017-07-10 10:25:00 Test Item Value Reference Range Interpretation Comments Magnesium Lvl (test code = Magnesium 2.0 1.8-2.4 Lvl) [facility]2017-07-10 10:25:00 Test Item Value Reference Range Interpretation Comments Phosphorus (test code = Phosphorus) 2.6 2.5-4.5 [facility]KgawharOXGZMUMVSL1232-34-78 10:25:00 Test Item Value Reference Range Interpretation Comments MPV (test code = MPV) 7.8 7.4-10.4 [facility]HexmcjcNHBTQCJFWU9049-68-96 10:25:00 Test Item Value Reference Range Interpretation Comments MCH (test code = MCH) 31.2 pg 27.0-31.0 [facility]anoSvnsejfYDBQQLLGLI8750-22-72 10:25:00 Test Item Value Reference Range Interpretation Comments MCHC (test code = MCHC) 33.7 32.0-36.0 [facility]anoAmvdybcXMHJHFGBAT2298-21-69 10:25:00 Test Item Value Reference Range Interpretation Comments RDW (test code = RDW) 13.5 11.5-14.5 [facility]anoXkzlpawWECLWYRORM0704-95-83 10:25:00 Test Item Value Reference Range Interpretation Comments Platelet (test code = Platelet) 322 133-450 [facility]anoLhxxxmlZPCTXHIYWN2485-76-80 10:25:00 Test Item Value Reference Range Interpretation Comments Hct (test code = Hct) 40.5 42.0-54.0 [facility]anoCzuzvsaWCSNGRMAHK2476-37-00 10:25:00 Test Item Value Reference Range Interpretation Comments WBC (test code = WBC) 10.9 3.7-10.4 [facility]anoCkgczmeUPBKTNYROT3237-64-64 10:25:00 Test Item Value Reference Range Interpretation Comments RBC (test code = RBC) 4.37 4.70-6.10 [facility]anoXgshtpcUJYIAUZUBU5508-69-90 10:25:00 Test Item Value Reference Range Interpretation Comments Hgb (test code = Hgb) 13.6 14.0-18.0 [facility]anoHwfgcpiOQDTFKTQPA8889-89-33 10:25:00 Test Item Value Reference Range Interpretation Comments MCV (test code = MCV) 92.7 80.0-94.0 [facility]anoEozdznmWUNXQFBYCN8649-33-08 10:25:00 Test Item Value Reference Range Interpretation Comments Basophils # (test code 0.1 See_Comment [Aut omated message] The = Basophils #) system which generated this result tra nsmitted reference range : <=0.2. The reference r yadira was not used to int erpret this result as normal/abnormal . [facility]anoDpzvguiYQIPGBIIAK9596-24-22 10:25:00 Test Item Value Reference Range Interpretation Comments Eosinophils # (test code 0.3 See_Comment [A utomated message] The = Eosinophils #) system whic h generated this result tra nsmitted reference range : <=0.5. The reference r yadira was not used to int erpret this result as normal/abnormal . [facility]anoDidjpkyYDSBSBZYHI9374-11-37 10:25:00 Test Item Value Reference Range Interpretation Comments Lymphocytes # (test code = Lymphocytes 2.9 1.0-5.5 #) [facility]anoDphdjeeNXPJKJFGMV8114-99-69 10:25:00 Test Item Value Reference Range Interpretation Comments Monocytes # (test code 1.3 See_Comment [Aut omated message] The = Monocytes #) system which generated this result tra nsmitted reference range : <=0.8. The reference r yadira was not used to int erpret this result as normal/abnormal . [facility]anoUtzlfpmGNUEXBZUSN7438-93-41 10:25:00 Test Item Value Reference Range Interpretation Comments Monocytes (test code = Monocytes) 11.6 2.0-12.0 [facility]anoWndzfkrXRIPFFMUSC5485-46-50 10:25:00 Test Item Value Reference Range Interpretation Comments Segs-Bands # (test code = Segs-Bands #) 6.4 1.5-8.1 [facility]anoAmujzvpGBSYZKWCNU7475-73-22 10:25:00 Test Item Value Reference Range Interpretation Comments Segs (test code = Segs) 58.3 45.0-75.0 [facility]anoYjhcgagHQVYHCABFN7428-22-64 10:25:00 Test Item Value Reference Range Interpretation Comments Lymphocytes (test code = Lymphocytes) 26.2 20.0-40.0 [facility]anoKttkulpTXHQKKENGQ2424-97-80 10:25:00 Test Item Value Reference Range Interpretation Comments Basophils (test code = 0.7 See_Comment [Aut omated message] The Basophils) system which ge nerated this result tra nsmitted reference range : <=1.0. The reference r yadira was not used to int erpret this result as normal/abnormal . [facility]anoZkukuwkMHKSSBTRNO8191-03-71 10:25:00 Test Item Value Reference Range Interpretation Comments Eosinophils (test code = 3.2 See_Comment [A utomated message] The Eosinophils) system which ge nerated this result tra nsmitted reference range : <=4.0. The reference r yadira was not used to int erpret this result as normal/abnormal . [facility] [id number] 10:25:00 Test Item Value Reference Range Interpretation Comments Ca Norm WB (test code = Ca Norm WB) 1.12 1.05-1.25 [facility]2017-07-10 10:25:00 Test Item Value Reference Range Interpretation Comments Ca Ion WB (test code = Ca Ion WB) 1.13 1.05-1.25 [facility]2017-07-10 10:25:00 Test Item Value Reference Range Interpretation Comments eGFR (test code = eGFR) 118 [facility]2017-07-10 10:25:00 Test Item Value Reference Range Interpretation Comments Potassium Lvl (test code = Potassium 3.3 3.5-5.1 Lvl) [facility]2017-07-10 10:25:00 Test Item Value Reference Range Interpretation Comments Chloride Lvl (test code = Chloride Lvl) 108 95-109 [facility]2017-07-10 10:25:00 Test Item Value Reference Range Interpretation Comments Calcium Lvl (test code = Calcium Lvl) 8.8 8.5-10.5 [facility]2017-07-10 10:25:00 Test Item Value Reference Range Interpretation Comments CO2 (test code = CO2) 19 24-32 [facility]2017-07-10 10:25:00 Test Item Value Reference Range Interpretation Comments Creatinine Lvl (test code = Creatinine 0.88 0.50-1.40 Lvl) [facility]2017-07-10 10:25:00 Test Item Value Reference Range Interpretation Comments BUN (test code = BUN) 7 7-22 [facility]2017-07-10 10:25:00 Test Item Value Reference Range Interpretation Comments Sodium Lvl (test code = Sodium Lvl) 140 135-145 [facility]2017-07-10 10:25:00 Test Item Value Reference Range Interpretation Comments Glucose Lvl (test code = Glucose Lvl) 74 70-99 [facility]2017-07-10 10:25:00 Test Item Value Reference Range Interpretation Comments AGAP (test code = AGAP) 16.3 10.0-20.0 [facility]2017-07-10 10:25:00 Test Item Value Reference Range Interpretation Comments Magnesium Lvl (test code = Magnesium 2.0 1.8-2.4 Lvl) [facility]2017-07-10 10:25:00 Test Item Value Reference Range Interpretation Comments Phosphorus (test code = Phosphorus) 2.6 2.5-4.5 [facility]anoOiirmilMPYHVRJDUN1616-41-22 10:25:00 Test Item Value Reference Range Interpretation Comments MPV (test code = MPV) 7.8 7.4-10.4 [facility]anoZvlkwwjHIINLAZNLU7244-74-69 10:25:00 Test Item Value Reference Range Interpretation Comments MCH (test code = MCH) 31.2 pg 27.0-31.0 [facility]anoHvvqwilNGNCKNEJIV0465-51-68 10:25:00 Test Item Value Reference Range Interpretation Comments MCHC (test code = MCHC) 33.7 32.0-36.0 [facility]anoTuljzljRZJKJQWIDI3794-76-64 10:25:00 Test Item Value Reference Range Interpretation Comments RDW (test code = RDW) 13.5 11.5-14.5 [facility]anoCfvaecvXSBEVHSMMN0443-69-54 10:25:00 Test Item Value Reference Range Interpretation Comments Platelet (test code = Platelet) 322 133-450 [facility]anoXiqyqynGGWARCWWNU4631-67-03 10:25:00 Test Item Value Reference Range Interpretation Comments Hct (test code = Hct) 40.5 42.0-54.0 [facility]anoKtvkcwdKRKICPGQLK2795-39-04 10:25:00 Test Item Value Reference Range Interpretation Comments WBC (test code = WBC) 10.9 3.7-10.4 [facility]anoRwjhdmjSTIXTAKLJY8398-13-94 10:25:00 Test Item Value Reference Range Interpretation Comments RBC (test code = RBC) 4.37 4.70-6.10 [facility]anoFvtyowsWMMGBUOPYY0081-42-78 10:25:00 Test Item Value Reference Range Interpretation Comments Hgb (test code = Hgb) 13.6 14.0-18.0 [facility]anoXrjkreuXNQTMSWZGE7563-48-01 10:25:00 Test Item Value Reference Range Interpretation Comments MCV (test code = MCV) 92.7 80.0-94.0 [facility]anoVwhfdzdCAKCSOCPAV8119-90-31 10:25:00 Test Item Value Reference Range Interpretation Comments Basophils # (test code 0.1 See_Comment [Aut omated message] The = Basophils #) system which generated this result tra nsmitted reference range : <=0.2. The reference r yadira was not used to int erpret this result as normal/abnormal . [facility]anoHoxgijoVECFHTEDUF6989-45-04 10:25:00 Test Item Value Reference Range Interpretation Comments Eosinophils # (test code 0.3 See_Comment [A utomated message] The = Eosinophils #) system whic h generated this result tra nsmitted reference range : <=0.5. The reference r yadira was not used to int erpret this result as normal/abnormal . [facility]anoVeflducYOLCBYYFYH3028-99-60 10:25:00 Test Item Value Reference Range Interpretation Comments Lymphocytes # (test code = Lymphocytes 2.9 1.0-5.5 #) [facility]anoKwpmtfmWYVKMKPNKA1363-32-07 10:25:00 Test Item Value Reference Range Interpretation Comments Monocytes # (test code 1.3 See_Comment [Aut omated message] The = Monocytes #) system which generated this result tra nsmitted reference range : <=0.8. The reference r yadira was not used to int erpret this result as normal/abnormal . [facility]anoPlgyefgGCLNQHWXFS1789-00-46 10:25:00 Test Item Value Reference Range Interpretation Comments Monocytes (test code = Monocytes) 11.6 2.0-12.0 [facility]anoKipgzvnQTRNOCOUTY7360-92-08 10:25:00 Test Item Value Reference Range Interpretation Comments Segs-Bands # (test code = Segs-Bands #) 6.4 1.5-8.1 [facility]anoReptfbeDJVBDZDBKG8928-80-35 10:25:00 Test Item Value Reference Range Interpretation Comments Segs (test code = Segs) 58.3 45.0-75.0 [facility]anoExltoljCEBSEOVFWI6407-12-22 10:25:00 Test Item Value Reference Range Interpretation Comments Lymphocytes (test code = Lymphocytes) 26.2 20.0-40.0 [facility]anoWzsxgsdKUNUJXMAMF7837-04-18 10:25:00 Test Item Value Reference Range Interpretation Comments Basophils (test code = 0.7 See_Comment [Aut omated message] The Basophils) system which ge nerated this result tra nsmitted reference range : <=1.0. The reference r yadira was not used to int erpret this result as normal/abnormal . [facility]anoNigfbpqKOXJRNUDTV4650-42-79 10:25:00 Test Item Value Reference Range Interpretation Comments Eosinophils (test code = 3.2 See_Comment [A utomated message] The Eosinophils) system which ge nerated this result tra nsmitted reference range : <=4.0. The reference r yadira was not used to int erpret this result as normal/abnormal . [facility] ZKRMDJV0775-09-50 10:25:00 Test Item Value Reference Range Interpretation Comments Ca Norm WB (test code = Ca Norm WB) 1.12 1.05-1.25 [facility] [id number] 10:25:00 Test Item Value Reference Range Interpretation Comments Ca Ion WB (test code = Ca Ion WB) 1.13 1.05-1.25 [facility]2017-07-10 10:25:00 Test Item Value Reference Range Interpretation Comments eGFR (test code = eGFR) 118 [facility]2017-07-10 10:25:00 Test Item Value Reference Range Interpretation Comments Potassium Lvl (test code = Potassium 3.3 3.5-5.1 Lvl) [facility]2017-07-10 10:25:00 Test Item Value Reference Range Interpretation Comments Chloride Lvl (test code = Chloride Lvl) 108 95-109 [facility]2017-07-10 10:25:00 Test Item Value Reference Range Interpretation Comments Calcium Lvl (test code = Calcium Lvl) 8.8 8.5-10.5 [facility]2017-07-10 10:25:00 Test Item Value Reference Range Interpretation Comments CO2 (test code = CO2) 19 24-32 [facility]2017-07-10 10:25:00 Test Item Value Reference Range Interpretation Comments Creatinine Lvl (test code = Creatinine 0.88 0.50-1.40 Lvl) [facility]2017-07-10 10:25:00 Test Item Value Reference Range Interpretation Comments BUN (test code = BUN) 7 7-22 [facility]2017-07-10 10:25:00 Test Item Value Reference Range Interpretation Comments Sodium Lvl (test code = Sodium Lvl) 140 135-145 [facility]2017-07-10 10:25:00 Test Item Value Reference Range Interpretation Comments Glucose Lvl (test code = Glucose Lvl) 74 70-99 [facility]2017-07-10 10:25:00 Test Item Value Reference Range Interpretation Comments AGAP (test code = AGAP) 16.3 10.0-20.0 [facility]2017-07-10 10:25:00 Test Item Value Reference Range Interpretation Comments Magnesium Lvl (test code = Magnesium 2.0 1.8-2.4 Lvl) [facility]2017-07-10 10:25:00 Test Item Value Reference Range Interpretation Comments Phosphorus (test code = Phosphorus) 2.6 2.5-4.5 [facility]anoEilwntbIOQROFIKRC9338-35-35 10:25:00 Test Item Value Reference Range Interpretation Comments MPV (test code = MPV) 7.8 7.4-10.4 [facility]anoLkfzuyvJAAYVXUKAY4567-84-82 10:25:00 Test Item Value Reference Range Interpretation Comments MCH (test code = MCH) 31.2 pg 27.0-31.0 [facility]anoKonrrxtCFKXFQPIBT0108-56-60 10:25:00 Test Item Value Reference Range Interpretation Comments MCHC (test code = MCHC) 33.7 32.0-36.0 [facility]anoNcrwidsWEIOLRFUJD9585-22-12 10:25:00 Test Item Value Reference Range Interpretation Comments RDW (test code = RDW) 13.5 11.5-14.5 [facility]anoWswyskeBHVOSMRCIV2524-96-77 10:25:00 Test Item Value Reference Range Interpretation Comments Platelet (test code = Platelet) 322 133-450 [facility]anoVpqeqmmMSNOTMZYBG6337-63-48 10:25:00 Test Item Value Reference Range Interpretation Comments Hct (test code = Hct) 40.5 42.0-54.0 [facility]anoNipxzfeNDNPVBKHVV6524-09-83 10:25:00 Test Item Value Reference Range Interpretation Comments WBC (test code = WBC) 10.9 3.7-10.4 [facility]anoLqvpgbhZMHRRPGDJR7837-43-23 10:25:00 Test Item Value Reference Range Interpretation Comments RBC (test code = RBC) 4.37 4.70-6.10 [facility]anoLsnreyiCYUMIDJKLC3378-05-38 10:25:00 Test Item Value Reference Range Interpretation Comments Hgb (test code = Hgb) 13.6 14.0-18.0 [facility]anoFuhdqfiVKJQHEFEAK4873-59-43 10:25:00 Test Item Value Reference Range Interpretation Comments MCV (test code = MCV) 92.7 80.0-94.0 [facility]anoQkjcoexSDUIRQRNHX1925-47-49 10:25:00 Test Item Value Reference Range Interpretation Comments Basophils # (test code 0.1 See_Comment [Aut omated message] The = Basophils #) system which generated this result tra nsmitted reference range : <=0.2. The reference r yadira was not used to int erpret this result as normal/abnormal . [facility]anoJargjkrWSNFYKRPXW9270-87-71 10:25:00 Test Item Value Reference Range Interpretation Comments Eosinophils # (test code 0.3 See_Comment [A utomated message] The = Eosinophils #) system whic h generated this result tra nsmitted reference range : <=0.5. The reference r yadira was not used to int erpret this result as normal/abnormal . [facility]anoNprxhzmANWKGQZSHY7436-47-75 10:25:00 Test Item Value Reference Range Interpretation Comments Lymphocytes # (test code = Lymphocytes 2.9 1.0-5.5 #) [facility]anoWjffdheYZAVBTAPJK0050-98-32 10:25:00 Test Item Value Reference Range Interpretation Comments Monocytes # (test code 1.3 See_Comment [Aut omated message] The = Monocytes #) system which generated this result tra nsmitted reference range : <=0.8. The reference r yadira was not used to int erpret this result as normal/abnormal . [facility]anoUyootltLHPCHOJQUL3754-59-70 10:25:00 Test Item Value Reference Range Interpretation Comments Monocytes (test code = Monocytes) 11.6 2.0-12.0 [facility]anoWhubjflKSBXSXPBCY9108-33-75 10:25:00 Test Item Value Reference Range Interpretation Comments Segs-Bands # (test code = Segs-Bands #) 6.4 1.5-8.1 [facility]anoBbioljdVCNMSYHAWQ8867-14-43 10:25:00 Test Item Value Reference Range Interpretation Comments Segs (test code = Segs) 58.3 45.0-75.0 [facility]anoNfaoksjIFRZOZQJNP0520-86-42 10:25:00 Test Item Value Reference Range Interpretation Comments Lymphocytes (test code = Lymphocytes) 26.2 20.0-40.0 [facility]anoGfdwhygWOMIEOHRZI6148-31-37 10:25:00 Test Item Value Reference Range Interpretation Comments Basophils (test code = 0.7 See_Comment [Aut omated message] The Basophils) system which ge nerated this result tra nsmitted reference range : <=1.0. The reference r yadira was not used to int erpret this result as normal/abnormal . [facility]anoPkvylsgABAFKLGQPR8295-29-41 10:25:00 Test Item Value Reference Range Interpretation Comments Eosinophils (test code = 3.2 See_Comment [A utomated message] The Eosinophils) system which ge nerated this result tra nsmitted reference range : <=4.0. The reference r yadira was not used to int erpret this result as normal/abnormal . [facility] [id number] 10:25:00 Test Item Value Reference Range Interpretation Comments Ca Norm WB (test code = Ca Norm WB) 1.12 1.05-1.25 [facility]RO[facility] [id number] 10:25:00 Test Item Value Reference Range Interpretation Comments Ca Ion WB (test code = Ca Ion WB) 1.13 1.05-1.25 [facility]2017-07-10 10:25:00 Test Item Value Reference Range Interpretation Comments eGFR (test code = eGFR) 118 [facility]2017-07-10 10:25:00 Test Item Value Reference Range Interpretation Comments Potassium Lvl (test code = Potassium 3.3 3.5-5.1 Lvl) [facility]2017-07-10 10:25:00 Test Item Value Reference Range Interpretation Comments Chloride Lvl (test code = Chloride Lvl) 108 95-109 [facility]2017-07-10 10:25:00 Test Item Value Reference Range Interpretation Comments Calcium Lvl (test code = Calcium Lvl) 8.8 8.5-10.5 [facility]2017-07-10 10:25:00 Test Item Value Reference Range Interpretation Comments CO2 (test code = CO2) 19 24-32 [facility]2017-07-10 10:25:00 Test Item Value Reference Range Interpretation Comments Creatinine Lvl (test code = Creatinine 0.88 0.50-1.40 Lvl) [facility]2017-07-10 10:25:00 Test Item Value Reference Range Interpretation Comments BUN (test code = BUN) 7 7-22 [facility]2017-07-10 10:25:00 Test Item Value Reference Range Interpretation Comments Sodium Lvl (test code = Sodium Lvl) 140 135-145 [facility]2017-07-10 10:25:00 Test Item Value Reference Range Interpretation Comments Glucose Lvl (test code = Glucose Lvl) 74 70-99 [facility]2017-07-10 10:25:00 Test Item Value Reference Range Interpretation Comments AGAP (test code = AGAP) 16.3 10.0-20.0 [facility]2017-07-10 10:25:00 Test Item Value Reference Range Interpretation Comments Magnesium Lvl (test code = Magnesium 2.0 1.8-2.4 Lvl) [facility]2017-07-10 10:25:00 Test Item Value Reference Range Interpretation Comments Phosphorus (test code = Phosphorus) 2.6 2.5-4.5 [facility]anoYbmadqmCVRJNLJIIK8881-54-63 10:25:00 Test Item Value Reference Range Interpretation Comments MPV (test code = MPV) 7.8 7.4-10.4 [facility]anoJkkedskYBXBGVCYZG5018-92-41 10:25:00 Test Item Value Reference Range Interpretation Comments MCH (test code = MCH) 31.2 pg 27.0-31.0 [facility]anoDjuzzuxFPPWDIIYTP4297-21-21 10:25:00 Test Item Value Reference Range Interpretation Comments MCHC (test code = MCHC) 33.7 32.0-36.0 [facility]anoEznsjtfQIUZGGQHWM7006-80-40 10:25:00 Test Item Value Reference Range Interpretation Comments RDW (test code = RDW) 13.5 11.5-14.5 [facility]anoXtrqozsYCTHZUIZFK5095-47-84 10:25:00 Test Item Value Reference Range Interpretation Comments Platelet (test code = Platelet) 322 133-450 [facility]anoEndxvwwZPPKUDGRPA5359-05-25 10:25:00 Test Item Value Reference Range Interpretation Comments Hct (test code = Hct) 40.5 42.0-54.0 [facility]anoNujgdotXSDNNQZJOY8482-28-05 10:25:00 Test Item Value Reference Range Interpretation Comments WBC (test code = WBC) 10.9 3.7-10.4 [facility]anoQhvrkbpGJHVPJVMEA0952-31-17 10:25:00 Test Item Value Reference Range Interpretation Comments RBC (test code = RBC) 4.37 4.70-6.10 [facility]anoYeigyljRLDAWYRNMG9992-33-09 10:25:00 Test Item Value Reference Range Interpretation Comments Hgb (test code = Hgb) 13.6 14.0-18.0 [facility]anoSvjscweSLFHHIOLQN6490-77-64 10:25:00 Test Item Value Reference Range Interpretation Comments MCV (test code = MCV) 92.7 80.0-94.0 [facility]anoLlfhvmnNHONPWFXOM1849-32-40 10:25:00 Test Item Value Reference Range Interpretation Comments Basophils # (test code 0.1 See_Comment [Aut omated message] The = Basophils #) system which generated this result tra nsmitted reference range : <=0.2. The reference r yadira was not used to int erpret this result as normal/abnormal . [facility]anoHqwubalTQMTAQSCXU5608-61-50 10:25:00 Test Item Value Reference Range Interpretation Comments Eosinophils # (test code 0.3 See_Comment [A utomated message] The = Eosinophils #) system whic h generated this result tra nsmitted reference range : <=0.5. The reference r yadira was not used to int erpret this result as normal/abnormal . [facility]oenaxvYDYTRQTEAC9150[facility] 10:25:00 Test Item Value Reference Range Interpretation Comments Lymphocytes # (test code = Lymphocytes 2.9 1.0-5.5 #) [facility]anoXjieipnQKIYHJGWJC4576-85-37 10:25:00 Test Item Value Reference Range Interpretation Comments Monocytes # (test code 1.3 See_Comment [Aut omated message] The = Monocytes #) system which generated this result tra nsmitted reference range : <=0.8. The reference r yadira was not used to int erpret this result as normal/abnormal . [facility]anoIimvzezFLEJKLREUP0033-40-63 10:25:00 Test Item Value Reference Range Interpretation Comments Monocytes (test code = Monocytes) 11.6 2.0-12.0 [facility]anoFdnozufRZFUOBJIDY3421-51-44 10:25:00 Test Item Value Reference Range Interpretation Comments Segs-Bands # (test code = Segs-Bands #) 6.4 1.5-8.1 [facility]anoPlqomusRGXLRHUWNC5099-28-87 10:25:00 Test Item Value Reference Range Interpretation Comments Segs (test code = Segs) 58.3 45.0-75.0 [facility] JWWNX2067-37-19 05:59:00 Test Item Value Reference Range Interpretation Comments Phosphorus (test code = Phosphorus) 2.9 2.5-4.5 [facility] VSYKF7509-76-58 05:59:00 Test Item Value Reference Range Interpretation Comments Magnesium Lvl (test code = Magnesium 1.9 1.8-2.4 Lvl) [facility]EcvfkryHNBAVGJZRDRH2385-48-34 05:59:00 Test Item Value Reference Range Interpretation Comments AGAP (test code = AGAP) 12.6 10.0-20.0 [facility] HospitalXebnmihFZPQQTLMSBSO9287-00-87 05:59:00 Test Item Value Reference Range Interpretation Comments BUN (test code = BUN) 6 7-22 [facility] HospitalUzkbjqnEPGPMJEUWKDF4992-15-33 05:59:00 Test Item Value Reference Range Interpretation Comments Glucose Lvl (test code = Glucose Lvl) 82 70-99 [facility] HospitalJywbgspVHXWULZFCCGY3063-30-58 05:59:00 Test Item Value Reference Range Interpretation Comments Creatinine Lvl (test code = Creatinine 0.97 0.50-1.40 Lvl) [facility] HospitalDlcigdyLYFCNKDPCJCA4756-95-09 05:59:00 Test Item Value Reference Range Interpretation Comments Sodium Lvl (test code = Sodium Lvl) 140 135-145 [facility] HospitalEacbzmpYSIIMSFCQQTE7146-87-33 05:59:00 Test Item Value Reference Range Interpretation Comments CO2 (test code = CO2) 24 24-32 [facility] HospitalFfoypkaYCIECZIOOUVL1612-29-47 05:59:00 Test Item Value Reference Range Interpretation Comments Potassium Lvl (test code = Potassium 3.6 3.5-5.1 Lvl) [facility] HospitalTwnbmdsZPIYWHPBLNJA1132-81-52 05:59:00 Test Item Value Reference Range Interpretation Comments Chloride Lvl (test code = Chloride Lvl) 107 95-109 [facility] HospitalGqlegtiLYJMPOCKKCEW9114-15-54 05:59:00 Test Item Value Reference Range Interpretation Comments Calcium Lvl (test code = Calcium Lvl) 8.9 8.5-10.5 [facility] HospitalSdexhdoMYHLDURASJDH0479-41-54 05:59:00 Test Item Value Reference Range Interpretation Comments eGFR (test code = eGFR) 106 [facility]anoJvobipvGENHLYAOGD1902-41-76 05:59:00 Test Item Value Reference Range Interpretation Comments Basophils # (test code 0.1 See_Comment [Aut omated message] The = Basophils #) system which generated this result tra nsmitted reference range : <=0.2. The reference r yadira was not used to int erpret this result as normal/abnormal . [facility]anoToxoijpLJJMHFDSCZ1814-13-10 05:59:00 Test Item Value Reference Range Interpretation Comments Eosinophils # (test code 0.2 See_Comment [A utomated message] The = Eosinophils #) system whic h generated this result tra nsmitted reference range : <=0.5. The reference r yadira was not used to int erpret this result as normal/abnormal . [facility]anoDfvtccuOUWTQBUCGC3432-62-45 05:59:00 Test Item Value Reference Range Interpretation Comments Lymphocytes (test code = Lymphocytes) 21.9 20.0-40.0 [facility]anoUsmwqjoVWPXVGZUFJ2315-06-72 05:59:00 Test Item Value Reference Range Interpretation Comments Segs (test code = Segs) 65.2 45.0-75.0 [facility]anoTwmgvnbZCWWFTMUGY5906-44-17 05:59:00 Test Item Value Reference Range Interpretation Comments Eosinophils (test code = 1.7 See_Comment [A utomated message] The Eosinophils) system which ge nerated this result tra nsmitted reference range : <=4.0. The reference r yadira was not used to int erpret this result as normal/abnormal . [facility]anoByuqwbxTAQSHSAEDL2309-60-17 05:59:00 Test Item Value Reference Range Interpretation Comments Monocytes (test code = Monocytes) 10.3 2.0-12.0 [facility]anoZtpkkorRNLGWDKQUI1257-14-39 05:59:00 Test Item Value Reference Range Interpretation Comments Basophils (test code = 0.9 See_Comment [Aut omated message] The Basophils) system which ge nerated this result tra nsmitted reference range : <=1.0. The reference r yadira was not used to int erpret this result as normal/abnormal . [facility]anoGgxgwjtZLPTIRKXGA0369-07-98 05:59:00 Test Item Value Reference Range Interpretation Comments Segs-Bands # (test code = Segs-Bands #) 8.5 1.5-8.1 [facility]anoFtwwpwqGPGHMBEECA5069-87-20 05:59:00 Test Item Value Reference Range Interpretation Comments Monocytes # (test code 1.3 See_Comment [Aut omated message] The = Monocytes #) system which generated this result tra nsmitted reference range : <=0.8. The reference r yadira was not used to int erpret this result as normal/abnormal . [facility]anoJdsrdqrSHWEHEEPNA4141-01-78 05:59:00 Test Item Value Reference Range Interpretation Comments Lymphocytes # (test code = Lymphocytes 2.8 1.0-5.5 #) [facility]anoOyqrbrzNLZRMHPSUQ4083-98-68 05:59:00 Test Item Value Reference Range Interpretation Comments MPV (test code = MPV) 7.5 7.4-10.4 [facility]anoFepaozcPWMTSXKPRV5582-28-90 05:59:00 Test Item Value Reference Range Interpretation Comments Platelet (test code = Platelet) 298 133-450 [facility]anoSblejjjRMPLZEVMJC4206-38-31 05:59:00 Test Item Value Reference Range Interpretation Comments RDW (test code = RDW) 13.6 11.5-14.5 [facility]anoQslhzkkGTMCEAQHTC9405-41-98 05:59:00 Test Item Value Reference Range Interpretation Comments MCV (test code = MCV) 91.7 80.0-94.0 [facility]anoBkrimxvXIFHZAMUZH8318-91-33 05:59:00 Test Item Value Reference Range Interpretation Comments Hct (test code = Hct) 38.2 42.0-54.0 [facility]anoPpykbzuXUJVHQDIXH1710-71-71 05:59:00 Test Item Value Reference Range Interpretation Comments MCH (test code = MCH) 31.3 pg 27.0-31.0 [facility]anoLqejggyZMSFFDBEEQ0567-27-83 05:59:00 Test Item Value Reference Range Interpretation Comments MCHC (test code = MCHC) 34.1 32.0-36.0 [facility]anoPlakusnHIIXAHPDOM0411-19-63 05:59:00 Test Item Value Reference Range Interpretation Comments Hgb (test code = Hgb) 13.0 14.0-18.0 [facility]anoUmhgvcnGTGXGRIZGQ3816-16-96 05:59:00 Test Item Value Reference Range Interpretation Comments RBC (test code = RBC) 4.16 4.70-6.10 [facility]anoCyccxqbJXNHHJESUR6337-30-35 05:59:00 Test Item Value Reference Range Interpretation Comments WBC (test code = WBC) 13.0 3.7-10.4 [facility] LCLIIWJ5165-65-18 05:59:00 Test Item Value Reference Range Interpretation Comments Ca Ion WB (test code = Ca Ion WB) 1.10 1.05-1.25 [facility] JXMRGHH5418-00-34 05:59:00 Test Item Value Reference Range Interpretation Comments Ca Norm WB (test code = Ca Norm WB) 1.07 1.05-1.25 [facility]VzjisdqDXVKETDPSO7556-30-83 05:59:00 Test Item Value Reference Range Interpretation Comments Phenytoin Free (test code = Phenytoin 2.35 1.00-2.00 Free) [facility] SystemEvjyxuvNSOVWDCVUP2056-61-33 05:59:00 Test Item Value Reference Range Interpretation Comments Phenytoin Total (test code = Phenytoin 24.7 10.0-20.0 Total) [facility] SystemCHEM DSJMS3149-30-33 05:59:00 Test Item Value Reference Range Interpretation Comments Phosphorus (test code = Phosphorus) 2.9 2.5-4.5 [facility] SystemCHEM CALLE3540-13-63 05:59:00 Test Item Value Reference Range Interpretation Comments Magnesium Lvl (test code = Magnesium 1.9 1.8-2.4 Lvl) [facility] HospitalXhzctzbOMCQKTIMRZXS3522-26-55 05:59:00 Test Item Value Reference Range Interpretation Comments AGAP (test code = AGAP) 12.6 10.0-20.0 [facility] HospitalIprclaoCLPCZARFJUWF6094-15-17 05:59:00 Test Item Value Reference Range Interpretation Comments BUN (test code = BUN) 6 7-22 [facility] HospitalArijgntIQOQMQDKHOOF3091-60-89 05:59:00 Test Item Value Reference Range Interpretation Comments Glucose Lvl (test code = Glucose Lvl) 82 70-99 [facility] HospitalIamfecpFNWGTNTSLWXN8643-57-18 05:59:00 Test Item Value Reference Range Interpretation Comments Creatinine Lvl (test code = Creatinine 0.97 0.50-1.40 Lvl) [facility] HospitalVlqaydgGBVIISMCKMQD8765-89-91 05:59:00 Test Item Value Reference Range Interpretation Comments Sodium Lvl (test code = Sodium Lvl) 140 135-145 [facility] HospitalEribwvuBBNZLNCALKTV6014-68-15 05:59:00 Test Item Value Reference Range Interpretation Comments CO2 (test code = CO2) 24 24-32 [facility] HospitalLpfkkpkMUJBCELSIBKX4694-77-54 05:59:00 Test Item Value Reference Range Interpretation Comments Potassium Lvl (test code = Potassium 3.6 3.5-5.1 Lvl) [facility] HospitalSsbxiruPIWFSLJGCJNI6199-74-41 05:59:00 Test Item Value Reference Range Interpretation Comments Chloride Lvl (test code = Chloride Lvl) 107 95-109 [facility] HospitalCicmjhdIBZEQIRGGTOI8577-92-18 05:59:00 Test Item Value Reference Range Interpretation Comments Calcium Lvl (test code = Calcium Lvl) 8.9 8.5-10.5 [facility] HospitalAoachbcQLHNKIZMBYRF0165-49-11 05:59:00 Test Item Value Reference Range Interpretation Comments eGFR (test code = eGFR) 106 [facility]anoJfldwsnKKSWTXLQJR3739-96-26 05:59:00 Test Item Value Reference Range Interpretation Comments Basophils # (test code 0.1 See_Comment [Aut omated message] The = Basophils #) system which generated this result tra nsmitted reference range : <=0.2. The reference r yadira was not used to int erpret this result as normal/abnormal . [facility]anoBqwwnxeGCHMRXGMZQ8694-60-79 05:59:00 Test Item Value Reference Range Interpretation Comments Eosinophils # (test code 0.2 See_Comment [A utomated message] The = Eosinophils #) system whic h generated this result tra nsmitted reference range : <=0.5. The reference r yadira was not used to int erpret this result as normal/abnormal . [facility]anoZcsajtlTMNFYOPYWZ9572-34-31 05:59:00 Test Item Value Reference Range Interpretation Comments Lymphocytes (test code = Lymphocytes) 21.9 20.0-40.0 [facility]anoYvqzxtyXUROPPCMAP2922-66-65 05:59:00 Test Item Value Reference Range Interpretation Comments Segs (test code = Segs) 65.2 45.0-75.0 [facility]anoLrhspntENOKWPHWZP5320-24-13 05:59:00 Test Item Value Reference Range Interpretation Comments Eosinophils (test code = 1.7 See_Comment [A utomated message] The Eosinophils) system which ge nerated this result tra nsmitted reference range : <=4.0. The reference r yadira was not used to int erpret this result as normal/abnormal . [facility]anoPjsfxkgBQBAVSNEZM2946-96-23 05:59:00 Test Item Value Reference Range Interpretation Comments Monocytes (test code = Monocytes) 10.3 2.0-12.0 [facility]anoAopuakhNSPVIRNECQ0154-49-75 05:59:00 Test Item Value Reference Range Interpretation Comments Basophils (test code = 0.9 See_Comment [Aut omated message] The Basophils) system which ge nerated this result tra nsmitted reference range : <=1.0. The reference r yadira was not used to int erpret this result as normal/abnormal . [facility]anoKhkpuwmNNHPRRXZKF9787-80-07 05:59:00 Test Item Value Reference Range Interpretation Comments Segs-Bands # (test code = Segs-Bands #) 8.5 1.5-8.1 [facility]anoDrchgviTDGVGUSGJX5716-06-09 05:59:00 Test Item Value Reference Range Interpretation Comments Monocytes # (test code 1.3 See_Comment [Aut omated message] The = Monocytes #) system which generated this result tra nsmitted reference range : <=0.8. The reference r yadira was not used to int erpret this result as normal/abnormal . [facility]anoYrnbvvwPKIFEDLGAU4324-08-22 05:59:00 Test Item Value Reference Range Interpretation Comments Lymphocytes # (test code = Lymphocytes 2.8 1.0-5.5 #) [facility]anoCkoapiiMVYVKWYBEL9617-64-61 05:59:00 Test Item Value Reference Range Interpretation Comments MPV (test code = MPV) 7.5 7.4-10.4 [facility]anoCqmqmtxQHLQIXYPTS6896-66-44 05:59:00 Test Item Value Reference Range Interpretation Comments Platelet (test code = Platelet) 298 133-450 [facility]anoEdcjmksVQDSFEKWKJ4432-68-94 05:59:00 Test Item Value Reference Range Interpretation Comments RDW (test code = RDW) 13.6 11.5-14.5 [facility]anoJunbrfqDEGNQBTKUQ6651-64-30 05:59:00 Test Item Value Reference Range Interpretation Comments MCV (test code = MCV) 91.7 80.0-94.0 [facility]anoFmmwpluCSQHVPTFQD0208-57-23 05:59:00 Test Item Value Reference Range Interpretation Comments Hct (test code = Hct) 38.2 42.0-54.0 [facility]anoDltcswgVRWKFEGODD1657-15-53 05:59:00 Test Item Value Reference Range Interpretation Comments MCH (test code = MCH) 31.3 pg 27.0-31.0 [facility]anoPmkrtzsENQDVGPEXD2488-41-79 05:59:00 Test Item Value Reference Range Interpretation Comments MCHC (test code = MCHC) 34.1 32.0-36.0 [facility]anoTzxxhzpCIFRTTKUPP4941-66-20 05:59:00 Test Item Value Reference Range Interpretation Comments Hgb (test code = Hgb) 13.0 14.0-18.0 [facility]anoWfilxgkKQYCDEETKC0097-92-48 05:59:00 Test Item Value Reference Range Interpretation Comments RBC (test code = RBC) 4.16 4.70-6.10 [facility]anoLceyzktMXAGQXQSPE3487-49-92 05:59:00 Test Item Value Reference Range Interpretation Comments WBC (test code = WBC) 13.0 3.7-10.4 [facility] KDCEIVK0545-03-20 05:59:00 Test Item Value Reference Range Interpretation Comments Ca Ion WB (test code = Ca Ion WB) 1.10 1.05-1.25 [facility]RO[facility] ZVFXRRL4064-80-06 05:59:00 Test Item Value Reference Range Interpretation Comments Ca Norm WB (test code = Ca Norm WB) 1.07 1.05-1.25 [place] [id number] 05:59:00 Test Item Value Reference Range Interpretation Comments Phenytoin Free (test code = Phenytoin 2.35 1.00-2.00 Free) [facility]HlcvlmmGHUOXKDBXY1802-30-31 05:59:00 Test Item Value Reference Range Interpretation Comments Phenytoin Total (test code = Phenytoin 24.7 10.0-20.0 Total) [facility]2017-07-09 05:59:00 Test Item Value Reference Range Interpretation Comments Phosphorus (test code = Phosphorus) 2.9 2.5-4.5 [facility]2017-07-09 05:59:00 Test Item Value Reference Range Interpretation Comments Magnesium Lvl (test code = Magnesium 1.9 1.8-2.4 Lvl) [facility] HospitalEsrvjezPGRXSIYQISCQ7069-57-31 05:59:00 Test Item Value Reference Range Interpretation Comments AGAP (test code = AGAP) 12.6 10.0-20.0 [facility] HospitalFozjrizBYSHSGYUNTGR6376-61-65 05:59:00 Test Item Value Reference Range Interpretation Comments BUN (test code = BUN) 6 7-22 [facility] HospitalQmthppnAZSJLEOAXAMD4604-76-93 05:59:00 Test Item Value Reference Range Interpretation Comments Glucose Lvl (test code = Glucose Lvl) 82 70-99 [facility] HospitalOfbiemcQIPRUEMCZMRY2660-12-13 05:59:00 Test Item Value Reference Range Interpretation Comments Creatinine Lvl (test code = Creatinine 0.97 0.50-1.40 Lvl) [facility] HospitalUvrivopPLBOXFTLBKRZ3530-20-62 05:59:00 Test Item Value Reference Range Interpretation Comments Sodium Lvl (test code = Sodium Lvl) 140 135-145 [facility] HospitalXfoafjnKPTLQSQEGWWT3700-84-27 05:59:00 Test Item Value Reference Range Interpretation Comments CO2 (test code = CO2) 24 24-32 [facility] HospitalMpfhvubGVFDBFJDUXRQ2951-16-80 05:59:00 Test Item Value Reference Range Interpretation Comments Potassium Lvl (test code = Potassium 3.6 3.5-5.1 Lvl) [facility] HospitalNxwermkWNHEQRPDVLMP2888-08-10 05:59:00 Test Item Value Reference Range Interpretation Comments Chloride Lvl (test code = Chloride Lvl) 107 95-109 [facility] HospitalJbuqnnvNJZXSEEXRUZW9019-43-27 05:59:00 Test Item Value Reference Range Interpretation Comments Calcium Lvl (test code = Calcium Lvl) 8.9 8.5-10.5 [facility] HospitalFhbagwkXCWMJIITQJEW5777-63-39 05:59:00 Test Item Value Reference Range Interpretation Comments eGFR (test code = eGFR) 106 [facility]anoXbopuxnFPOKSFFKFL1913-38-72 05:59:00 Test Item Value Reference Range Interpretation Comments Basophils # (test code 0.1 See_Comment [Aut omated message] The = Basophils #) system which generated this result tra nsmitted reference range : <=0.2. The reference r yadira was not used to int erpret this result as normal/abnormal . [facility]anoUjzfcrlQYLNOHTEWM1400-53-52 05:59:00 Test Item Value Reference Range Interpretation Comments Eosinophils # (test code 0.2 See_Comment [A utomated message] The = Eosinophils #) system whic h generated this result tra nsmitted reference range : <=0.5. The reference r yadira was not used to int erpret this result as normal/abnormal . [facility]anoBykmwlqMAKDDHOGAJ7523-56-77 05:59:00 Test Item Value Reference Range Interpretation Comments Lymphocytes (test code = Lymphocytes) 21.9 20.0-40.0 [facility]anoXtujihoMEXLOOGLWT8975-29-13 05:59:00 Test Item Value Reference Range Interpretation Comments Segs (test code = Segs) 65.2 45.0-75.0 [facility] PlanoKpoolqiCQOMFPRMJF4334-65-55 05:59:00 Test Item Value Reference Range Interpretation Comments Eosinophils (test code = 1.7 See_Comment [A utomated message] The Eosinophils) system which ge nerated this result tra nsmitted reference range : <=4.0. The reference r yadira was not used to int erpret this result as normal/abnormal . [facility]anoJbuwcadCIJJRNVZTP5073-72-25 05:59:00 Test Item Value Reference Range Interpretation Comments Monocytes (test code = Monocytes) 10.3 2.0-12.0 [facility]anoOkwptqyFPXGBKXDGA6935-61-24 05:59:00 Test Item Value Reference Range Interpretation Comments Basophils (test code = 0.9 See_Comment [Aut omated message] The Basophils) system which ge nerated this result tra nsmitted reference range : <=1.0. The reference r yadira was not used to int erpret this result as normal/abnormal . [facility]anoAcvkmvhFPWXJZBYQU9343-49-53 05:59:00 Test Item Value Reference Range Interpretation Comments Segs-Bands # (test code = Segs-Bands #) 8.5 1.5-8.1 [facility]anoKxclbnpAFGJVODTDN4675-16-43 05:59:00 Test Item Value Reference Range Interpretation Comments Monocytes # (test code 1.3 See_Comment [Aut omated message] The = Monocytes #) system which generated this result tra nsmitted reference range : <=0.8. The reference r yadira was not used to int erpret this result as normal/abnormal . [facility]anoCqztuwfFIEZDEDBZN7707-52-38 05:59:00 Test Item Value Reference Range Interpretation Comments Lymphocytes # (test code = Lymphocytes 2.8 1.0-5.5 #) [facility]anoYycoixgTOXPYNIBFQ9376-38-53 05:59:00 Test Item Value Reference Range Interpretation Comments MPV (test code = MPV) 7.5 7.4-10.4 [facility]anoIvtddxsTTIXEWGJPZ6612-18-47 05:59:00 Test Item Value Reference Range Interpretation Comments Platelet (test code = Platelet) 298 133-450 [facility]anoYeajtmmTJUUQFSYYO6684-82-04 05:59:00 Test Item Value Reference Range Interpretation Comments RDW (test code = RDW) 13.6 11.5-14.5 [facility]anoIoqlazwLNIJPZACHF8559-68-21 05:59:00 Test Item Value Reference Range Interpretation Comments MCV (test code = MCV) 91.7 80.0-94.0 [facility]anoXkwbmdyLMOUZJMQKA9200-71-40 05:59:00 Test Item Value Reference Range Interpretation Comments Hct (test code = Hct) 38.2 42.0-54.0 [facility]anoPqzpamcFLJIDISDBS3301-78-21 05:59:00 Test Item Value Reference Range Interpretation Comments MCH (test code = MCH) 31.3 pg 27.0-31.0 [facility]anoMhmrpsyVJMPHKOBTZ8876-21-97 05:59:00 Test Item Value Reference Range Interpretation Comments MCHC (test code = MCHC) 34.1 32.0-36.0 [facility] PlanoHsbghkkSZQCBQFWSR9362-60-79 05:59:00 Test Item Value Reference Range Interpretation Comments Hgb (test code = Hgb) 13.0 14.0-18.0 [facility] PlanoOxeseyvPNHDHMNWTY3436-08-84 05:59:00 Test Item Value Reference Range Interpretation Comments RBC (test code = RBC) 4.16 4.70-6.10 [facility]anoMhpgutpAOBQAVWHQV9095-47-66 05:59:00 Test Item Value Reference Range Interpretation Comments WBC (test code = WBC) 13.0 3.7-10.4 [facility]2017-07-09 05:59:00 Test Item Value Reference Range Interpretation Comments Ca Ion WB (test code = Ca Ion WB) 1.10 1.05-1.25 [facility]2017-07-09 05:59:00 Test Item Value Reference Range Interpretation Comments Ca Norm WB (test code = Ca Norm WB) 1.07 1.05-1.25 [facility]KmfwlknEUKTYNITJK6551-57-39 05:59:00 Test Item Value Reference Range Interpretation Comments Phenytoin Free (test code = Phenytoin 2.35 1.00-2.00 Free) [place] 30514017-07-09 05:59:00 Test Item Value Reference Range Interpretation Comments Phenytoin Total (test code = Phenytoin 24.7 10.0-20.0 Total) [facility]2017-07-09 05:59:00 Test Item Value Reference Range Interpretation Comments Phosphorus (test code = Phosphorus) 2.9 2.5-4.5 [facility]2017-07-09 05:59:00 Test Item Value Reference Range Interpretation Comments Magnesium Lvl (test code = Magnesium 1.9 1.8-2.4 Lvl) [facility] HospitalElberixWHDPQYYOAIBF1703-96-83 05:59:00 Test Item Value Reference Range Interpretation Comments AGAP (test code = AGAP) 12.6 10.0-20.0 [facility] HospitalRvifsfpSMVQSCBFPAOA0327-07-75 05:59:00 Test Item Value Reference Range Interpretation Comments BUN (test code = BUN) 6 7-22 [facility] HospitalErpnjqdJTJISUIYOUUE8462-69-45 05:59:00 Test Item Value Reference Range Interpretation Comments Glucose Lvl (test code = Glucose Lvl) 82 70-99 [facility] HospitalIqxcqhkXZWRCFYNAZVG9782-39-54 05:59:00 Test Item Value Reference Range Interpretation Comments Creatinine Lvl (test code = Creatinine 0.97 0.50-1.40 Lvl) [facility] HospitalJjjuqyvMZTZYWRKSOFN6739-53-83 05:59:00 Test Item Value Reference Range Interpretation Comments Sodium Lvl (test code = Sodium Lvl) 140 135-145 [facility] HospitalWaiyariKQFQJKOPIBFM8199-84-78 05:59:00 Test Item Value Reference Range Interpretation Comments CO2 (test code = CO2) 24 24-32 [facility] HospitalYgmpwygGOWIHQVXNGNP6878-63-48 05:59:00 Test Item Value Reference Range Interpretation Comments Potassium Lvl (test code = Potassium 3.6 3.5-5.1 Lvl) [facility] HospitalCaxjouhBNNLLDPGBDOV1290-60-64 05:59:00 Test Item Value Reference Range Interpretation Comments Chloride Lvl (test code = Chloride Lvl) 107 95-109 [facility] HospitalQbpzroiCIEYYSJZLONA9746-08-36 05:59:00 Test Item Value Reference Range Interpretation Comments Calcium Lvl (test code = Calcium Lvl) 8.9 8.5-10.5 [facility] HospitalHwcmrjbLWOGNIVOKQRF6938-23-98 05:59:00 Test Item Value Reference Range Interpretation Comments eGFR (test code = eGFR) 106 [facility]WzkygabPQXJNFYFPS8171-91-99 05:59:00 Test Item Value Reference Range Interpretation Comments Basophils # (test code 0.1 See_Comment [Aut omated message] The = Basophils #) system which generated this result tra nsmitted reference range : <=0.2. The reference r yadira was not used to int erpret this result as normal/abnormal . [facility]anoGmrsotaGCGFWJMEQH7575-94-37 05:59:00 Test Item Value Reference Range Interpretation Comments Eosinophils # (test code 0.2 See_Comment [A utomated message] The = Eosinophils #) system whic h generated this result tra nsmitted reference range : <=0.5. The reference r yadira was not used to int erpret this result as normal/abnormal . [facility]anoYjodhxtBXCHFJUEIJ7798-29-68 05:59:00 Test Item Value Reference Range Interpretation Comments Lymphocytes (test code = Lymphocytes) 21.9 20.0-40.0 [facility]anoLbcdvffDNVMUHLSDM8174-86-16 05:59:00 Test Item Value Reference Range Interpretation Comments Segs (test code = Segs) 65.2 45.0-75.0 [facility]anoQmbghtzIIKXGFUMHR0520-37-61 05:59:00 Test Item Value Reference Range Interpretation Comments Eosinophils (test code = 1.7 See_Comment [A utomated message] The Eosinophils) system which ge nerated this result tra nsmitted reference range : <=4.0. The reference r yadira was not used to int erpret this result as normal/abnormal . [facility]anoTybroyzQUBAVXYMMA9605-00-00 05:59:00 Test Item Value Reference Range Interpretation Comments Monocytes (test code = Monocytes) 10.3 2.0-12.0 [facility]anoIdsartmAHMWCONSKU3019-57-08 05:59:00 Test Item Value Reference Range Interpretation Comments Basophils (test code = 0.9 See_Comment [Aut omated message] The Basophils) system which ge nerated this result tra nsmitted reference range : <=1.0. The reference r yadira was not used to int erpret this result as normal/abnormal . [facility]anoBcgduevKWXOISXDVT5457-42-83 05:59:00 Test Item Value Reference Range Interpretation Comments Segs-Bands # (test code = Segs-Bands #) 8.5 1.5-8.1 [facility]anoRfacebpVZAKCCDIPJ7442-72-82 05:59:00 Test Item Value Reference Range Interpretation Comments Monocytes # (test code 1.3 See_Comment [Aut omated message] The = Monocytes #) system which generated this result tra nsmitted reference range : <=0.8. The reference r yadira was not used to int erpret this result as normal/abnormal . [facility]anoGgqojvhMFKOCUUZYS0134-93-60 05:59:00 Test Item Value Reference Range Interpretation Comments Lymphocytes # (test code = Lymphocytes 2.8 1.0-5.5 #) [facility]anoZsdgxklZBZQCRGSYN0182-73-29 05:59:00 Test Item Value Reference Range Interpretation Comments MPV (test code = MPV) 7.5 7.4-10.4 [facility]anoKekvosmYPPYHIZDIW8113-41-31 05:59:00 Test Item Value Reference Range Interpretation Comments Platelet (test code = Platelet) 298 133-450 [facility]anoSifojtvWNCSYBDBNO3343-42-91 05:59:00 Test Item Value Reference Range Interpretation Comments RDW (test code = RDW) 13.6 11.5-14.5 [facility]anoApydvyhOSPSETOYTI9862-16-60 05:59:00 Test Item Value Reference Range Interpretation Comments MCV (test code = MCV) 91.7 80.0-94.0 [facility]anoPymearkNZWVUOJBKX9329-00-58 05:59:00 Test Item Value Reference Range Interpretation Comments Hct (test code = Hct) 38.2 42.0-54.0 [facility]anoIstynzwPFNBCLBRDE3370-50-79 05:59:00 Test Item Value Reference Range Interpretation Comments MCH (test code = MCH) 31.3 pg 27.0-31.0 [facility]anoQybjnwrGSHWERIEHZ9828-14-72 05:59:00 Test Item Value Reference Range Interpretation Comments MCHC (test code = MCHC) 34.1 32.0-36.0 [facility] PlanoDvszlunOKTWLTWHMI2603-44-50 05:59:00 Test Item Value Reference Range Interpretation Comments Hgb (test code = Hgb) 13.0 14.0-18.0 [facility]anoXvogkcuDPGZEJVSLS8076-64-27 05:59:00 Test Item Value Reference Range Interpretation Comments RBC (test code = RBC) 4.16 4.70-6.10 [facility]anoYoisjtsOFAQZDAFSP1440-42-72 05:59:00 Test Item Value Reference Range Interpretation Comments WBC (test code = WBC) 13.0 3.7-10.4 [facility]ATH[facility]BIKQVPI1932-48-10 05:59:00 Test Item Value Reference Range Interpretation Comments Ca Ion WB (test code = Ca Ion WB) 1.10 1.05-1.25 [facility]ATHYROID OGDDMFD6834-96-31 05:59:00 Test Item Value Reference Range Interpretation Comments Ca Norm WB (test code = Ca Norm WB) 1.07 1.05-1.25 [facility] SystemCejlgdqSFRGAGNZGW8478-00-44 05:59:00 Test Item Value Reference Range Interpretation Comments Phenytoin Free (test code = Phenytoin 2.35 1.00-2.00 Free) [facility]andBvfhezxGTCLXAUXKB4226-90-22 05:59:00 Test Item Value Reference Range Interpretation Comments Phenytoin Total (test code = Phenytoin 24.7 10.0-20.0 Total) [facility]2017-07-09 05:59:00 Test Item Value Reference Range Interpretation Comments Phosphorus (test code = Phosphorus) 2.9 2.5-4.5 [facility]2017-07-09 05:59:00 Test Item Value Reference Range Interpretation Comments Magnesium Lvl (test code = Magnesium 1.9 1.8-2.4 Lvl) [facility] HospitalGhrbyexIKVZNIJWJNET2520-56-43 05:59:00 Test Item Value Reference Range Interpretation Comments AGAP (test code = AGAP) 12.6 10.0-20.0 [facility] HospitalMctgjzxFGMZCQHKLMUD6286-85-20 05:59:00 Test Item Value Reference Range Interpretation Comments BUN (test code = BUN) 6 7-22 [facility] HospitalCwhdzrsNQHSRRTVYWRJ0709-76-24 05:59:00 Test Item Value Reference Range Interpretation Comments Glucose Lvl (test code = Glucose Lvl) 82 70-99 [facility] HospitalNpagmahOWMJQRKNFUVH9908-33-07 05:59:00 Test Item Value Reference Range Interpretation Comments Creatinine Lvl (test code = Creatinine 0.97 0.50-1.40 Lvl) [facility] HospitalDsmkhthGUIBGQLFFZVR8589-24-38 05:59:00 Test Item Value Reference Range Interpretation Comments Sodium Lvl (test code = Sodium Lvl) 140 135-145 [facility] HospitalNiftmrgGANEUWJFAFLE3338-11-31 05:59:00 Test Item Value Reference Range Interpretation Comments CO2 (test code = CO2) 24 24-32 [facility] HospitalHkqhisgRSKTMVVHWJZQ4691-40-57 05:59:00 Test Item Value Reference Range Interpretation Comments Potassium Lvl (test code = Potassium 3.6 3.5-5.1 Lvl) [facility] HospitalDyfuxwgYSMQCSEWCLII2089-45-26 05:59:00 Test Item Value Reference Range Interpretation Comments Chloride Lvl (test code = Chloride Lvl) 107 95-109 [facility] HospitalJqbmcheJGYEMVXWRBLX6345-27-96 05:59:00 Test Item Value Reference Range Interpretation Comments Calcium Lvl (test code = Calcium Lvl) 8.9 8.5-10.5 [facility] HospitalNrazxhpGVVGSOVGBUTP9956-59-26 05:59:00 Test Item Value Reference Range Interpretation Comments eGFR (test code = eGFR) 106 [facility]FwfryapUQVZETGOKV2626-21-43 05:59:00 Test Item Value Reference Range Interpretation Comments Basophils # (test code 0.1 See_Comment [Aut omated message] The = Basophils #) system which generated this result tra nsmitted reference range : <=0.2. The reference r yadira was not used to int erpret this result as normal/abnormal . [facility]anoUxqtfpbJWNXYVYIGI9123-03-71 05:59:00 Test Item Value Reference Range Interpretation Comments Eosinophils # (test code 0.2 See_Comment [A utomated message] The = Eosinophils #) system whic h generated this result tra nsmitted reference range : <=0.5. The reference r yadira was not used to int erpret this result as normal/abnormal . [facility] PlanoRsapwlzVOLNFHXVQD2148-83-28 05:59:00 Test Item Value Reference Range Interpretation Comments Lymphocytes (test code = Lymphocytes) 21.9 20.0-40.0 [facility]anoYyilvdaRFJAMLXBUE8970-31-20 05:59:00 Test Item Value Reference Range Interpretation Comments Segs (test code = Segs) 65.2 45.0-75.0 [facility]anoVcwmoxkSDSORGYHOT6180-08-68 05:59:00 Test Item Value Reference Range Interpretation Comments Eosinophils (test code = 1.7 See_Comment [A utomated message] The Eosinophils) system which ge nerated this result tra nsmitted reference range : <=4.0. The reference r yadira was not used to int erpret this result as normal/abnormal . [facility]anoIumzgekQQZQUBEZDE8520-75-99 05:59:00 Test Item Value Reference Range Interpretation Comments Monocytes (test code = Monocytes) 10.3 2.0-12.0 [facility]anoJrmthvpRHCWNZZSEQ8928-18-28 05:59:00 Test Item Value Reference Range Interpretation Comments Basophils (test code = 0.9 See_Comment [Aut omated message] The Basophils) system which ge nerated this result tra nsmitted reference range : <=1.0. The reference r yadira was not used to int erpret this result as normal/abnormal . [facility]anoVpvapqnKSNYQFIWYS4375-16-53 05:59:00 Test Item Value Reference Range Interpretation Comments Segs-Bands # (test code = Segs-Bands #) 8.5 1.5-8.1 [facility]anoEjykqfvRKOIYBOGGC7186-56-88 05:59:00 Test Item Value Reference Range Interpretation Comments Monocytes # (test code 1.3 See_Comment [Aut omated message] The = Monocytes #) system which generated this result tra nsmitted reference range : <=0.8. The reference r yadira was not used to int erpret this result as normal/abnormal . [facility]anoUxjnoqlSAAALEPUJR4351-44-04 05:59:00 Test Item Value Reference Range Interpretation Comments Lymphocytes # (test code = Lymphocytes 2.8 1.0-5.5 #) [facility]anoNsgysaqEQREOHQBOP5794-04-07 05:59:00 Test Item Value Reference Range Interpretation Comments MPV (test code = MPV) 7.5 7.4-10.4 [facility]anoTzzqvsyFRLFRBRYVH2965-62-39 05:59:00 Test Item Value Reference Range Interpretation Comments Platelet (test code = Platelet) 298 133-450 [facility] PlanoVfanafmLOCCAZMQTH0508-76-84 05:59:00 Test Item Value Reference Range Interpretation Comments RDW (test code = RDW) 13.6 11.5-14.5 [facility]anoJsqxdavMUAVGXKLSK4162-72-52 05:59:00 Test Item Value Reference Range Interpretation Comments MCV (test code = MCV) 91.7 80.0-94.0 [facility]anoPqcyykzPKVHPUJNTN5176-81-79 05:59:00 Test Item Value Reference Range Interpretation Comments Hct (test code = Hct) 38.2 42.0-54.0 [facility]anoBvazkvaWFYPAZJQAH0914-84-51 05:59:00 Test Item Value Reference Range Interpretation Comments MCH (test code = MCH) 31.3 pg 27.0-31.0 [facility]anoLtmgdruTBNQJDBVDT9971-23-00 05:59:00 Test Item Value Reference Range Interpretation Comments MCHC (test code = MCHC) 34.1 32.0-36.0 [facility] PlanoRifojxzLWLGTXEDOG9550-15-56 05:59:00 Test Item Value Reference Range Interpretation Comments Hgb (test code = Hgb) 13.0 14.0-18.0 [facility]anoLreupmrTJGPZTBHUE0181-19-10 05:59:00 Test Item Value Reference Range Interpretation Comments RBC (test code = RBC) 4.16 4.70-6.10 [facility]anoZebfuehGTZGZYTXBQ6554-57-30 05:59:00 Test Item Value Reference Range Interpretation Comments WBC (test code = WBC) 13.0 3.7-10.4 [facility]ROID JBAHCBK0146-80-86 05:59:00 Test Item Value Reference Range Interpretation Comments Ca Ion WB (test code = Ca Ion WB) 1.10 1.05-1.25 [facility]villeROID FLFIWJH0691-15-06 05:59:00 Test Item Value Reference Range Interpretation Comments Ca Norm WB (test code = Ca Norm WB) 1.07 1.05-1.25 [facility]ellandUtoljelRIKBGVYVNR2408-09-94 05:59:00 Test Item Value Reference Range Interpretation Comments Phenytoin Free (test code = Phenytoin 2.35 1.00-2.00 Free) [place] 30514017-07-09 05:59:00 Test Item Value Reference Range Interpretation Comments Phenytoin Total (test code = Phenytoin 24.7 10.0-20.0 Total) [facility] SystemMineralRightsWorldwide.[facility] XDMOR7887-14-43 05:59:00 Test Item Value Reference Range Interpretation Comments Phosphorus (test code = Phosphorus) 2.9 2.5-4.5 [facility]2017-07-09 05:59:00 Test Item Value Reference Range Interpretation Comments Magnesium Lvl (test code = Magnesium 1.9 1.8-2.4 Lvl) [facility] HospitalNkatefuNEUOJLKQQNZE7006-76-20 05:59:00 Test Item Value Reference Range Interpretation Comments AGAP (test code = AGAP) 12.6 10.0-20.0 [facility] HospitalIdxjqunXTXBMZHXFCIL2883-05-66 05:59:00 Test Item Value Reference Range Interpretation Comments BUN (test code = BUN) 6 7-22 [facility] HospitalZkcgebvVFFVHSKAAXLJ5709-57-02 05:59:00 Test Item Value Reference Range Interpretation Comments Glucose Lvl (test code = Glucose Lvl) 82 70-99 [facility] HospitalSejposiOVGAEGHSKNSM3878-31-89 05:59:00 Test Item Value Reference Range Interpretation Comments Creatinine Lvl (test code = Creatinine 0.97 0.50-1.40 Lvl) [facility] HospitalCtjddqyMOJAMSZWQBQF4284-64-54 05:59:00 Test Item Value Reference Range Interpretation Comments Sodium Lvl (test code = Sodium Lvl) 140 135-145 [facility] HospitalNimrfprLXEUFUCBQFBP7155-78-27 05:59:00 Test Item Value Reference Range Interpretation Comments CO2 (test code = CO2) 24 24-32 [facility] HospitalAhamzwkKFNJIAFWTXOZ5021-20-72 05:59:00 Test Item Value Reference Range Interpretation Comments Potassium Lvl (test code = Potassium 3.6 3.5-5.1 Lvl) [facility] HospitalYaofakhFNIHMLRTRPKI2316-03-36 05:59:00 Test Item Value Reference Range Interpretation Comments Chloride Lvl (test code = Chloride Lvl) 107 95-109 [facility] HospitalItivgdtMNKRJFCRWVNY4194-44-04 05:59:00 Test Item Value Reference Range Interpretation Comments Calcium Lvl (test code = Calcium Lvl) 8.9 8.5-10.5 [facility] HospitalVclpiuvFLPZEGESIGHX8413-44-52 05:59:00 Test Item Value Reference Range Interpretation Comments eGFR (test code = eGFR) 106 [facility]anoXvdxaxfGWVAFXXHCS6362-58-38 05:59:00 Test Item Value Reference Range Interpretation Comments Basophils # (test code 0.1 See_Comment [Aut omated message] The = Basophils #) system which generated this result tra nsmitted reference range : <=0.2. The reference r yadira was not used to int erpret this result as normal/abnormal . [facility] PlanoRqtgembOSETYYEYNR0040-86-16 05:59:00 Test Item Value Reference Range Interpretation Comments Eosinophils # (test code 0.2 See_Comment [A utomated message] The = Eosinophils #) system whic h generated this result tra nsmitted reference range : <=0.5. The reference r yadira was not used to int erpret this result as normal/abnormal . [facility] PlanoXrmgxznRTVMHLYENZ9503-82-78 05:59:00 Test Item Value Reference Range Interpretation Comments Lymphocytes (test code = Lymphocytes) 21.9 20.0-40.0 [facility]anoNnyqnvsTFMZVRFHDS9207-17-51 05:59:00 Test Item Value Reference Range Interpretation Comments Segs (test code = Segs) 65.2 45.0-75.0 [facility] PlanoSobxvrmJWYIBPHZKH4895-88-60 05:59:00 Test Item Value Reference Range Interpretation Comments Eosinophils (test code = 1.7 See_Comment [A utomated message] The Eosinophils) system which ge nerated this result tra nsmitted reference range : <=4.0. The reference r yadira was not used to int erpret this result as normal/abnormal . [facility] PlanoRlupjmxOIBELHXIMH7857-51-21 05:59:00 Test Item Value Reference Range Interpretation Comments Monocytes (test code = Monocytes) 10.3 2.0-12.0 [facility] PlanoYasovddPWVBKMAOSA0117-33-73 05:59:00 Test Item Value Reference Range Interpretation Comments Basophils (test code = 0.9 See_Comment [Aut omated message] The Basophils) system which ge nerated this result tra nsmitted reference range : <=1.0. The reference r yadira was not used to int erpret this result as normal/abnormal . [facility] PlanoBvprcmcKYAWKAXQZH1476-34-85 05:59:00 Test Item Value Reference Range Interpretation Comments Segs-Bands # (test code = Segs-Bands #) 8.5 1.5-8.1 [facility] PlanoUuiyczrBMSCQQYHZE9680-78-74 05:59:00 Test Item Value Reference Range Interpretation Comments Monocytes # (test code 1.3 See_Comment [Aut omated message] The = Monocytes #) system which generated this result tra nsmitted reference range : <=0.8. The reference r yadira was not used to int erpret this result as normal/abnormal . [facility] PlanoMzncpjbQJHVNMTWSA8079-12-55 05:59:00 Test Item Value Reference Range Interpretation Comments Lymphocytes # (test code = Lymphocytes 2.8 1.0-5.5 #) [facility]anoUpkickdTWRKDXMXKP7870-49-95 05:59:00 Test Item Value Reference Range Interpretation Comments MPV (test code = MPV) 7.5 7.4-10.4 [facility] PlanoFushxwfMUYMGNVLCA1837-43-40 05:59:00 Test Item Value Reference Range Interpretation Comments Platelet (test code = Platelet) 298 133-450 [facility] PlanoQtleccfQKMDHOYRPA3304-88-47 05:59:00 Test Item Value Reference Range Interpretation Comments RDW (test code = RDW) 13.6 11.5-14.5 [facility]anoNvfdteaUKPMJKDISE4419-54-25 05:59:00 Test Item Value Reference Range Interpretation Comments MCV (test code = MCV) 91.7 80.0-94.0 [facility] PlanoStvbotwCIIOTYRMFS9020-11-84 05:59:00 Test Item Value Reference Range Interpretation Comments Hct (test code = Hct) 38.2 42.0-54.0 [facility] PlanoBictowtDJHWPMTZGZ9310-12-75 05:59:00 Test Item Value Reference Range Interpretation Comments MCH (test code = MCH) 31.3 pg 27.0-31.0 [facility] HospitalCukydnjGCPFGKJGGS7431-16-02 05:59:00 Test Item Value Reference Range Interpretation Comments MCHC (test code = MCHC) 34.1 32.0-36.0 [facility] PlanoKtwlrfkUDUXUYKMXB9312-05-32 05:59:00 Test Item Value Reference Range Interpretation Comments Hgb (test code = Hgb) 13.0 14.0-18.0 [facility] PlanoQgxnjjpSUDKNBASGG9713-45-42 05:59:00 Test Item Value Reference Range Interpretation Comments RBC (test code = RBC) 4.16 4.70-6.10 [facility] PlanoShjcklmHNGLEKNSGM2363-86-93 05:59:00 Test Item Value Reference Range Interpretation Comments WBC (test code = WBC) 13.0 3.7-10.4 [facility]villeROID RJDDTWX4437-40-60 05:59:00 Test Item Value Reference Range Interpretation Comments Ca Ion WB (test code = Ca Ion WB) 1.10 1.05-1.25 [facility] StephenvilleROID UEVVCCE6324-35-13 05:59:00 Test Item Value Reference Range Interpretation Comments Ca Norm WB (test code = Ca Norm WB) 1.07 1.05-1.25 [facility] SystemLpoalxuVLSDADPLBV0376-09-81 05:59:00 Test Item Value Reference Range Interpretation Comments Phenytoin Free (test code = Phenytoin 2.35 1.00-2.00 Free) [facility]andOeiuyngMTLMTGALBN9711-29-70 05:59:00 Test Item Value Reference Range Interpretation Comments Phenytoin Total (test code = Phenytoin 24.7 10.0-20.0 Total) [facility]2017-07-08 19:27:00 Test Item Value Reference Range Interpretation Comments eGFR (test code = eGFR) 95 [facility]2017-07-08 19:27:00 Test Item Value Reference Range Interpretation Comments Chloride Lvl (test code = Chloride Lvl) 108 95-109 [facility]2017-07-08 19:27:00 Test Item Value Reference Range Interpretation Comments CO2 (test code = CO2) 23 24-32 [facility]2017-07-08 19:27:00 Test Item Value Reference Range Interpretation Comments Calcium Lvl (test code = Calcium Lvl) 8.7 8.5-10.5 [facility]2017-07-08 19:27:00 Test Item Value Reference Range Interpretation Comments AGAP (test code = AGAP) 13.6 10.0-20.0 [facility]2017-07-08 19:27:00 Test Item Value Reference Range Interpretation Comments BUN (test code = BUN) 8 7-22 [facility]2017-07-08 19:27:00 Test Item Value Reference Range Interpretation Comments Glucose Lvl (test code = Glucose Lvl) 94 70-99 [facility]2017-07-08 19:27:00 Test Item Value Reference Range Interpretation Comments Potassium Lvl (test code = Potassium 3.6 3.5-5.1 Lvl) [facility]2017-07-08 19:27:00 Test Item Value Reference Range Interpretation Comments Sodium Lvl (test code = Sodium Lvl) 141 135-145 [facility]2017-07-08 19:27:00 Test Item Value Reference Range Interpretation Comments Creatinine Lvl (test code = Creatinine 1.07 0.50-1.40 Lvl) [facility] SystemLxnwxgpYUFVRUBQVC7784-85-87 19:27:00 Test Item Value Reference Range Interpretation Comments Phenytoin Free (test code = Phenytoin 2.26 1.00-2.00 Free) [facility]2017-07-08 19:27:00 Test Item Value Reference Range Interpretation Comments eGFR (test code = eGFR) 95 [facility]2017-07-08 19:27:00 Test Item Value Reference Range Interpretation Comments Chloride Lvl (test code = Chloride Lvl) 108 95-109 [facility]2017-07-08 19:27:00 Test Item Value Reference Range Interpretation Comments CO2 (test code = CO2) 23 24-32 [facility]2017-07-08 19:27:00 Test Item Value Reference Range Interpretation Comments Calcium Lvl (test code = Calcium Lvl) 8.7 8.5-10.5 [facility]2017-07-08 19:27:00 Test Item Value Reference Range Interpretation Comments AGAP (test code = AGAP) 13.6 10.0-20.0 [facility]2017-07-08 19:27:00 Test Item Value Reference Range Interpretation Comments BUN (test code = BUN) 8 7- [facility]2017-07-08 19:27:00 Test Item Value Reference Range Interpretation Comments Glucose Lvl (test code = Glucose Lvl) 94 70-99 [facility]2017-07-08 19:27:00 Test Item Value Reference Range Interpretation Comments Potassium Lvl (test code = Potassium 3.6 3.5-5.1 Lvl) [facility]2017-07-08 19:27:00 Test Item Value Reference Range Interpretation Comments Sodium Lvl (test code = Sodium Lvl) 141 135-145 [facility]2017-07-08 19:27:00 Test Item Value Reference Range Interpretation Comments Creatinine Lvl (test code = Creatinine 1.07 0.50-1.40 Lvl) [id number] 19:27:00 Test Item Value Reference Range Interpretation Comments Phenytoin Free (test code = Phenytoin 2.26 1.00-2.00 Free) [facility]2017-07-08 19:27:00 Test Item Value Reference Range Interpretation Comments eGFR (test code = eGFR) 95 [facility]2017-07-08 19:27:00 Test Item Value Reference Range Interpretation Comments Chloride Lvl (test code = Chloride Lvl) 108 95-109 [facility]2017-07-08 19:27:00 Test Item Value Reference Range Interpretation Comments CO2 (test code = CO2) 23 24-32 [facility]2017-07-08 19:27:00 Test Item Value Reference Range Interpretation Comments Calcium Lvl (test code = Calcium Lvl) 8.7 8.5-10.5 [facility]2017-07-08 19:27:00 Test Item Value Reference Range Interpretation Comments AGAP (test code = AGAP) 13.6 10.0-20.0 [facility]2017-07-08 19:27:00 Test Item Value Reference Range Interpretation Comments BUN (test code = BUN) 8 7-22 [facility]2017-07-08 19:27:00 Test Item Value Reference Range Interpretation Comments Glucose Lvl (test code = Glucose Lvl) 94 70-99 [facility]2017-07-08 19:27:00 Test Item Value Reference Range Interpretation Comments Potassium Lvl (test code = Potassium 3.6 3.5-5.1 Lvl) [facility]2017-07-08 19:27:00 Test Item Value Reference Range Interpretation Comments Sodium Lvl (test code = Sodium Lvl) 141 135-145 [facility]2017-07-08 19:27:00 Test Item Value Reference Range Interpretation Comments Creatinine Lvl (test code = Creatinine 1.07 0.50-1.40 Lvl) [id number] 19:27:00 Test Item Value Reference Range Interpretation Comments Phenytoin Free (test code = Phenytoin 2.26 1.00-2.00 Free) [facility]2017-07-08 19:27:00 Test Item Value Reference Range Interpretation Comments eGFR (test code = eGFR) 95 [facility]2017-07-08 19:27:00 Test Item Value Reference Range Interpretation Comments Chloride Lvl (test code = Chloride Lvl) 108 95-109 [facility]2017-07-08 19:27:00 Test Item Value Reference Range Interpretation Comments CO2 (test code = CO2) 23 24-32 [facility]2017-07-08 19:27:00 Test Item Value Reference Range Interpretation Comments Calcium Lvl (test code = Calcium Lvl) 8.7 8.5-10.5 [facility]2017-07-08 19:27:00 Test Item Value Reference Range Interpretation Comments AGAP (test code = AGAP) 13.6 10.0-20.0 [facility]2017-07-08 19:27:00 Test Item Value Reference Range Interpretation Comments BUN (test code = BUN) 8 7-22 [facility]2017-07-08 19:27:00 Test Item Value Reference Range Interpretation Comments Glucose Lvl (test code = Glucose Lvl) 94 70-99 [facility]2017-07-08 19:27:00 Test Item Value Reference Range Interpretation Comments Potassium Lvl (test code = Potassium 3.6 3.5-5.1 Lvl) [facility]2017-07-08 19:27:00 Test Item Value Reference Range Interpretation Comments Sodium Lvl (test code = Sodium Lvl) 141 135-145 [facility]2017-07-08 19:27:00 Test Item Value Reference Range Interpretation Comments Creatinine Lvl (test code = Creatinine 1.07 0.50-1.40 Lvl) [id number] 19:27:00 Test Item Value Reference Range Interpretation Comments Phenytoin Free (test code = Phenytoin 2.26 1.00-2.00 Free) [facility]2017-07-08 19:27:00 Test Item Value Reference Range Interpretation Comments eGFR (test code = eGFR) 95 [facility]2017-07-08 19:27:00 Test Item Value Reference Range Interpretation Comments Chloride Lvl (test code = Chloride Lvl) 108 95-109 [facility]2017-07-08 19:27:00 Test Item Value Reference Range Interpretation Comments CO2 (test code = CO2) 23 24-32 [facility]2017-07-08 19:27:00 Test Item Value Reference Range Interpretation Comments Calcium Lvl (test code = Calcium Lvl) 8.7 8.5-10.5 [facility]2017-07-08 19:27:00 Test Item Value Reference Range Interpretation Comments AGAP (test code = AGAP) 13.6 10.0-20.0 [facility]2017-07-08 19:27:00 Test Item Value Reference Range Interpretation Comments BUN (test code = BUN) 8 7-22 [facility]2017-07-08 19:27:00 Test Item Value Reference Range Interpretation Comments Glucose Lvl (test code = Glucose Lvl) 94 70-99 [facility]2017-07-08 19:27:00 Test Item Value Reference Range Interpretation Comments Potassium Lvl (test code = Potassium 3.6 3.5-5.1 Lvl) [facility]2017-07-08 19:27:00 Test Item Value Reference Range Interpretation Comments Sodium Lvl (test code = Sodium Lvl) 141 135-145 [facility]2017-07-08 19:27:00 Test Item Value Reference Range Interpretation Comments Creatinine Lvl (test code = Creatinine 1.07 0.50-1.40 Lvl) [place] [id number] 19:27:00 Test Item Value Reference Range Interpretation Comments Phenytoin Free (test code = Phenytoin 2.26 1.00-2.00 Free) [facility]2017-07-08 19:27:00 Test Item Value Reference Range Interpretation Comments eGFR (test code = eGFR) 95 [facility]2017-07-08 19:27:00 Test Item Value Reference Range Interpretation Comments Chloride Lvl (test code = Chloride Lvl) 108 95-109 [facility]2017-07-08 19:27:00 Test Item Value Reference Range Interpretation Comments CO2 (test code = CO2) 23 24-32 [facility]2017-07-08 19:27:00 Test Item Value Reference Range Interpretation Comments Calcium Lvl (test code = Calcium Lvl) 8.7 8.5-10.5 [facility]2017-07-08 19:27:00 Test Item Value Reference Range Interpretation Comments AGAP (test code = AGAP) 13.6 10.0-20.0 [facility]2017-07-08 19:27:00 Test Item Value Reference Range Interpretation Comments BUN (test code = BUN) 8 7-22 [facility]2017-07-08 19:27:00 Test Item Value Reference Range Interpretation Comments Glucose Lvl (test code = Glucose Lvl) 94 70-99 [facility]2017-07-08 19:27:00 Test Item Value Reference Range Interpretation Comments Potassium Lvl (test code = Potassium 3.6 3.5-5.1 Lvl) [facility]2017-07-08 19:27:00 Test Item Value Reference Range Interpretation Comments Sodium Lvl (test code = Sodium Lvl) 141 135-145 [facility]2017-07-08 19:27:00 Test Item Value Reference Range Interpretation Comments Creatinine Lvl (test code = Creatinine 1.07 0.50-1.40 Lvl) [place] [id number] 19:27:00 Test Item Value Reference Range Interpretation Comments Phenytoin Free (test code = Phenytoin 2.26 1.00-2.00 Free) [facility]2017-07-08 14:19:00 Test Item Value Reference Range Interpretation Comments Lactic Acid Lvl (test code = Lactic 1.0 0.5-2.2 Acid Lvl) [facility] [id number] 14:19:00 Test Item Value Reference Range Interpretation Comments UA pH (test code = UA pH) 6.5 5.0-8.0 [facility] [id number] 14:19:00 Test Item Value Reference Range Interpretation Comments UA Spec Grav (test code = UA Spec Grav) 1.014 [facility] [id number] 14:19:00 Test Item Value Reference Range Interpretation Comments UA Ketones (test code = UA Negative mg/dL Ketones) [facility] [id number] 14:19:00 Test Item Value Reference Range Interpretation Comments UA Protein (test code = UA Protein) 30 mg/dL [facility] [id number] 14:19:00 Test Item Value Reference Range Interpretation Comments UA Turbidity (test code Marked *ABN*(08/24/16 = UA Turbidity) 9:19 AM) [facility] [id number] 14:19:00 Test Item Value Reference Range Interpretation Comments UA Color (test code = Yellow *NA*(08/24/16 9:19 UA Color) AM) [facility] [id number] 14:19:00 Test Item Value Reference Range Interpretation Comments UA Amorph Elizabeth (test code = UA Many /HPF Amorph Elizabeth) [facility] [id number] 14:19:00 Test Item Value Reference Range Interpretation Comments UA Leuk Est (test Negative (08/24/16 9:19 code = UA Leuk Est) AM) [facility] [id number] 14:19:00 Test Item Value Reference Range Interpretation Comments UA RBC (test code = 10 See_Comment [Automa michelle message] The UA RBC) system which ge nerated this result transmit michelle reference range : <=2. The reference range was not used to interpr et this result as meme l/abnormal. [facility] [id number] 14:19:00 Test Item Value Reference Range Interpretation Comments UA Urobilinogen (test code = UA <=1.0 mg/dL 0.1-1.0 Urobilinogen) [facility] [id number] 14:19:00 Test Item Value Reference Range Interpretation Comments UA Glucose (test code = UA Negative mg/dL Glucose) [facility] [id number] 14:19:00 Test Item Value Reference Range Interpretation Comments UA Nitrite (test code Negative (08/24/16 9:19 = UA Nitrite) AM) [facility] [id number] 14:19:00 Test Item Value Reference Range Interpretation Comments UA Bili (test code = Negative *NA*(08/24/16 UA Bili) 9:19 AM) [facility] [id number] 14:19:00 Test Item Value Reference Range Interpretation Comments UA Blood (test code = Moderate *ABN*(08/24/16 UA Blood) 9:19 AM) [facility] [id number] 14:19:00 Test Item Value Reference Range Interpretation Comments UA Sq Epi (test code = UA Sq Epi) None Seen [facility] [id number] 14:19:00 Test Item Value Reference Range Interpretation Comments Lactic Acid Lvl (test code = Lactic 1.0 0.5-2.2 Acid Lvl) [facility] [id number] 14:19:00 Test Item Value Reference Range Interpretation Comments UA pH (test code = UA pH) 6.5 5.0-8.0 [facility] [id number] 14:19:00 Test Item Value Reference Range Interpretation Comments UA Spec Grav (test code = UA Spec Grav) 1.014 [facility] [id number] 14:19:00 Test Item Value Reference Range Interpretation Comments UA Ketones (test code = UA Negative mg/dL Ketones) [facility] [id number] 14:19:00 Test Item Value Reference Range Interpretation Comments UA Protein (test code = UA Protein) 30 mg/dL [facility] [id number] 14:19:00 Test Item Value Reference Range Interpretation Comments UA Turbidity (test code Marked *ABN*(08/24/16 = UA Turbidity) 9:19 AM) [facility] [id number] 14:19:00 Test Item Value Reference Range Interpretation Comments UA Color (test code = Yellow *NA*(08/24/16 9:19 UA Color) AM) [facility] [id number] 14:19:00 Test Item Value Reference Range Interpretation Comments UA Amorph Elizabeth (test code = UA Many /HPF Amorph Elizabeth) [facility] [id number] 14:19:00 Test Item Value Reference Range Interpretation Comments UA Leuk Est (test Negative (08/24/16 9:19 code = UA Leuk Est) AM) [facility] [id number] 14:19:00 Test Item Value Reference Range Interpretation Comments UA RBC (test code = 10 See_Comment [Automa michelle message] The UA RBC) system which ge nerated this result transmit michelle reference range : <=2. The reference range was not used to interpr et this result as meme l/abnormal. [facility] [id number] 14:19:00 Test Item Value Reference Range Interpretation Comments UA Urobilinogen (test code = UA <=1.0 mg/dL 0.1-1.0 Urobilinogen) [facility] [id number] 14:19:00 Test Item Value Reference Range Interpretation Comments UA Glucose (test code = UA Negative mg/dL Glucose) [facility] [id number] 14:19:00 Test Item Value Reference Range Interpretation Comments UA Nitrite (test code Negative (08/24/16 9:19 = UA Nitrite) AM) [facility] [id number] 14:19:00 Test Item Value Reference Range Interpretation Comments UA Bili (test code = Negative *NA*(08/24/16 UA Bili) 9:19 AM) [facility] [id number] 14:19:00 Test Item Value Reference Range Interpretation Comments UA Blood (test code = Moderate *ABN*(08/24/16 UA Blood) 9:19 AM) [facility] [id number] 14:19:00 Test Item Value Reference Range Interpretation Comments UA Sq Epi (test code = UA Sq Epi) None Seen [facility] [id number] 14:19:00 Test Item Value Reference Range Interpretation Comments Lactic Acid Lvl (test code = Lactic 1.0 0.5-2.2 Acid Lvl) [facility] [id number] 14:19:00 Test Item Value Reference Range Interpretation Comments UA pH (test code = UA pH) 6.5 5.0-8.0 [facility] [id number] 14:19:00 Test Item Value Reference Range Interpretation Comments UA Spec Grav (test code = UA Spec Grav) 1.014 [facility] [id number] 14:19:00 Test Item Value Reference Range Interpretation Comments UA Ketones (test code = UA Negative mg/dL Ketones) [facility] [id number] 14:19:00 Test Item Value Reference Range Interpretation Comments UA Protein (test code = UA Protein) 30 mg/dL [facility] [id number] 14:19:00 Test Item Value Reference Range Interpretation Comments UA Turbidity (test code Marked *ABN*(08/24/16 = UA Turbidity) 9:19 AM) [facility] [id number] 14:19:00 Test Item Value Reference Range Interpretation Comments UA Color (test code = Yellow *NA*(08/24/16 9:19 UA Color) AM) [facility] [id number] 14:19:00 Test Item Value Reference Range Interpretation Comments UA Amorph Elizabeth (test code = UA Many /HPF Amorph Elizabeth) [facility] [id number] 14:19:00 Test Item Value Reference Range Interpretation Comments UA Leuk Est (test Negative (08/24/16 9:19 code = UA Leuk Est) AM) [facility] [id number] 14:19:00 Test Item Value Reference Range Interpretation Comments UA RBC (test code = 10 See_Comment [Automa michelle message] The UA RBC) system which ge nerated this result transmit michelle reference range : <=2. The reference range was not used to interpr et this result as meme l/abnormal. [facility] [id number] 14:19:00 Test Item Value Reference Range Interpretation Comments UA Urobilinogen (test code = UA <=1.0 mg/dL 0.1-1.0 Urobilinogen) [facility] [id number] 14:19:00 Test Item Value Reference Range Interpretation Comments UA Glucose (test code = UA Negative mg/dL Glucose) [facility] [id number] 14:19:00 Test Item Value Reference Range Interpretation Comments UA Nitrite (test code Negative (08/24/16 9:19 = UA Nitrite) AM) [facility] [id number] 14:19:00 Test Item Value Reference Range Interpretation Comments UA Bili (test code = Negative *NA*(08/24/16 UA Bili) 9:19 AM) [facility] [id number] 14:19:00 Test Item Value Reference Range Interpretation Comments UA Blood (test code = Moderate *ABN*(08/24/16 UA Blood) 9:19 AM) [facility] [id number] 14:19:00 Test Item Value Reference Range Interpretation Comments UA Sq Epi (test code = UA Sq Epi) None Seen [facility] [id number] 14:19:00 Test Item Value Reference Range Interpretation Comments Lactic Acid Lvl (test code = Lactic 1.0 0.5-2.2 Acid Lvl) [facility] [id number] 14:19:00 Test Item Value Reference Range Interpretation Comments UA pH (test code = UA pH) 6.5 5.0-8.0 [facility] [id number] 14:19:00 Test Item Value Reference Range Interpretation Comments UA Spec Grav (test code = UA Spec Grav) 1.014 [facility] [id number] 14:19:00 Test Item Value Reference Range Interpretation Comments UA Ketones (test code = UA Negative mg/dL Ketones) [facility] [id number] 14:19:00 Test Item Value Reference Range Interpretation Comments UA Protein (test code = UA Protein) 30 mg/dL [facility] [id number] 14:19:00 Test Item Value Reference Range Interpretation Comments UA Turbidity (test code Marked *ABN*(08/24/16 = UA Turbidity) 9:19 AM) [facility] [id number] 14:19:00 Test Item Value Reference Range Interpretation Comments UA Color (test code = Yellow *NA*(08/24/16 9:19 UA Color) AM) [facility] [id number] 14:19:00 Test Item Value Reference Range Interpretation Comments UA Amorph Elizabeth (test code = UA Many /HPF Amorph Elizabeth) [facility] [id number] 14:19:00 Test Item Value Reference Range Interpretation Comments UA Leuk Est (test Negative (08/24/16 9:19 code = UA Leuk Est) AM) [facility] [id number] 14:19:00 Test Item Value Reference Range Interpretation Comments UA RBC (test code = 10 See_Comment [Automa michelle message] The UA RBC) system which ge nerated this result transmit michelle reference range : <=2. The reference range was not used to interpr et this result as meme l/abnormal. [facility] [id number] 14:19:00 Test Item Value Reference Range Interpretation Comments UA Urobilinogen (test code = UA <=1.0 mg/dL 0.1-1.0 Urobilinogen) [facility] [id number] 14:19:00 Test Item Value Reference Range Interpretation Comments UA Glucose (test code = UA Negative mg/dL Glucose) [facility] [id number] 14:19:00 Test Item Value Reference Range Interpretation Comments UA Nitrite (test code Negative (08/24/16 9:19 = UA Nitrite) AM) [facility] [id number] 14:19:00 Test Item Value Reference Range Interpretation Comments UA Bili (test code = Negative *NA*(08/24/16 UA Bili) 9:19 AM) [facility] [id number] 14:19:00 Test Item Value Reference Range Interpretation Comments UA Blood (test code = Moderate *ABN*(08/24/16 UA Blood) 9:19 AM) [facility] [id number] 14:19:00 Test Item Value Reference Range Interpretation Comments UA Sq Epi (test code = UA Sq Epi) None Seen [facility] [id number] 14:19:00 Test Item Value Reference Range Interpretation Comments Lactic Acid Lvl (test code = Lactic 1.0 0.5-2.2 Acid Lvl) [facility] [id number] 14:19:00 Test Item Value Reference Range Interpretation Comments UA pH (test code = UA pH) 6.5 5.0-8.0 [facility] [id number] 14:19:00 Test Item Value Reference Range Interpretation Comments UA Spec Grav (test code = UA Spec Grav) 1.014 [facility] [id number] 14:19:00 Test Item Value Reference Range Interpretation Comments UA Ketones (test code = UA Negative mg/dL Ketones) [facility] [id number] 14:19:00 Test Item Value Reference Range Interpretation Comments UA Protein (test code = UA Protein) 30 mg/dL [facility] [id number] 14:19:00 Test Item Value Reference Range Interpretation Comments UA Turbidity (test code Marked *ABN*(08/24/16 = UA Turbidity) 9:19 AM) [facility] [id number] 14:19:00 Test Item Value Reference Range Interpretation Comments UA Color (test code = Yellow *NA*(08/24/16 9:19 UA Color) AM) [facility] [id number] 14:19:00 Test Item Value Reference Range Interpretation Comments UA Amorph Elizabeth (test code = UA Many /HPF Amorph Elizabeth) [facility] [id number] 14:19:00 Test Item Value Reference Range Interpretation Comments UA Leuk Est (test Negative (08/24/16 9:19 code = UA Leuk Est) AM) [facility] [id number] 14:19:00 Test Item Value Reference Range Interpretation Comments UA RBC (test code = 10 See_Comment [Automa michelle message] The UA RBC) system which ge nerated this result transmit michelle reference range : <=2. The reference range was not used to interpr et this result as meme l/abnormal. [facility] [id number] 14:19:00 Test Item Value Reference Range Interpretation Comments UA Urobilinogen (test code = UA <=1.0 mg/dL 0.1-1.0 Urobilinogen) [facility] [id number] 14:19:00 Test Item Value Reference Range Interpretation Comments UA Glucose (test code = UA Negative mg/dL Glucose) [facility] [id number] 14:19:00 Test Item Value Reference Range Interpretation Comments UA Nitrite (test code Negative (08/24/16 9:19 = UA Nitrite) AM) [facility] [id number] 14:19:00 Test Item Value Reference Range Interpretation Comments UA Bili (test code = Negative *NA*(08/24/16 UA Bili) 9:19 AM) [facility] [id number] 14:19:00 Test Item Value Reference Range Interpretation Comments UA Blood (test code = Moderate *ABN*(08/24/16 UA Blood) 9:19 AM) [facility] [id number] 14:19:00 Test Item Value Reference Range Interpretation Comments UA Sq Epi (test code = UA Sq Epi) None Seen [facility]2017-07-08 14:19:00 Test Item Value Reference Range Interpretation Comments Lactic Acid Lvl (test code = Lactic 1.0 0.5-2.2 Acid Lvl) [facility] [id number] 14:19:00 Test Item Value Reference Range Interpretation Comments UA pH (test code = UA pH) 6.5 5.0-8.0 [facility] [id number] 14:19:00 Test Item Value Reference Range Interpretation Comments UA Spec Grav (test code = UA Spec Grav) 1.014 [facility] [id number] 14:19:00 Test Item Value Reference Range Interpretation Comments UA Ketones (test code = UA Negative mg/dL Ketones) [facility] [id number] 14:19:00 Test Item Value Reference Range Interpretation Comments UA Protein (test code = UA Protein) 30 mg/dL [facility] [id number] 14:19:00 Test Item Value Reference Range Interpretation Comments UA Turbidity (test code Marked *ABN*(08/24/16 = UA Turbidity) 9:19 AM) [facility] [id number] 14:19:00 Test Item Value Reference Range Interpretation Comments UA Color (test code = Yellow *NA*(08/24/16 9:19 UA Color) AM) [facility] [id number] 14:19:00 Test Item Value Reference Range Interpretation Comments UA Amorph Elizabeth (test code = UA Many /HPF Amorph Elizabeth) [facility] [id number] 14:19:00 Test Item Value Reference Range Interpretation Comments UA Leuk Est (test Negative (08/24/16 9:19 code = UA Leuk Est) AM) [facility] [facility] AND [id number] 14:19:00 Test Item Value Reference Range Interpretation Comments UA RBC (test code = 10 See_Comment [Automa michelle message] The UA RBC) system which ge nerated this result transmit michelle reference range : <=2. The reference range was not used to interpr et this result as meme l/abnormal. [facility] AND [id number] 14:19:00 Test Item Value Reference Range Interpretation Comments UA Urobilinogen (test code = UA <=1.0 mg/dL 0.1-1.0 Urobilinogen) [facility] AND [id number] 14:19:00 Test Item Value Reference Range Interpretation Comments UA Glucose (test code = UA Negative mg/dL Glucose) [facility] AND [id number] 14:19:00 Test Item Value Reference Range Interpretation Comments UA Nitrite (test code Negative (08/24/16 9:19 = UA Nitrite) AM) [facility] AND [id number] 14:19:00 Test Item Value Reference Range Interpretation Comments UA Bili (test code = Negative *NA*(08/24/16 UA Bili) 9:19 AM) [facility] AND [id number] 14:19:00 Test Item Value Reference Range Interpretation Comments UA Blood (test code = Moderate *ABN*(08/24/16 UA Blood) 9:19 AM) [facility] AND [id number] 14:19:00 Test Item Value Reference Range Interpretation Comments UA Sq Epi (test code = UA Sq Epi) None [facility]en [facility] [id number] 09:39:00 Test Item Value Reference Range Interpretation Comments MRSA by PCR (test Negative (08/24/16 4:39 code = MRSA by PCR) AM) [facility] [id number] 09:39:00 Test Item Value Reference Range Interpretation Comments MRSA by PCR (test Negative (08/24/16 4:39 code = MRSA by PCR) AM) [facility] [id number] 09:39:00 Test Item Value Reference Range Interpretation Comments MRSA by PCR (test Negative (08/24/16 4:39 code = MRSA by PCR) AM) [facility] [id number] 09:39:00 Test Item Value Reference Range Interpretation Comments MRSA by PCR (test Negative (08/24/16 4:39 code = MRSA by PCR) AM) [facility] [id number] 09:39:00 Test Item Value Reference Range Interpretation Comments MRSA by PCR (test Negative (08/24/16 4:39 code = MRSA by PCR) AM) [facility] [id number] 09:39:00 Test Item Value Reference Range Interpretation Comments MRSA by PCR (test Negative (08/24/16 4:39 code = MRSA by PCR) AM) [facility] [id number] 09:38:00 Test Item Value Reference Range Interpretation Comments Bili Total (test code = Bili Total) 0.5 0.2-1.3 [facility] [id number] 09:38:00 Test Item Value Reference Range Interpretation Comments ALT (test code = ALT) 29 See_Comment [Auto mated message] The system which ge nerated this result transmit michelle reference range : <=65. The reference range was not used to interpr et this result as meme l/abnormal. [facility] [id number] 09:38:00 Test Item Value Reference Range Interpretation Comments Globulin (test code = Globulin) 3.6 2.7-4.2 [facility] [id number] 09:38:00 Test Item Value Reference Range Interpretation Comments A/G Ratio (test code = A/G Ratio) 1.0 0.7-1.6 [facility] [id number] 09:38:00 Test Item Value Reference Range Interpretation Comments Alk Phos (test code = Alk Phos) 96 39-136 [facility] [id number] 09:38:00 Test Item Value Reference Range Interpretation Comments AST (test code = AST) 23 See_Comment [Auto mated message] The system which ge nerated this result transmit michelle reference range : <=37. The reference range was not used to interpr et this result as meme l/abnormal. [facility]2017-07-08 09:38:00 Test Item Value Reference Range Interpretation Comments Albumin Lvl (test code = Albumin Lvl) 3.7 3.5-5.0 [place] [id number] 09:38:00 Test Item Value Reference Range Interpretation Comments Total Protein (test code = Total 7.3 6.4-8.4 Protein) [facility]2017-07-08 09:38:00 Test Item Value Reference Range Interpretation Comments B/C Ratio (test code = See Note 4(08/24/16 4:38 6-25 B/C Ratio) AM) [facility]2017-07-08 09:38:00 Test Item Value Reference Range Interpretation Comments Phosphorus (test code = Phosphorus) 3.9 2.5-4.5 [facility]2017-07-08 09:38:00 Test Item Value Reference Range Interpretation Comments Magnesium Lvl (test code = Magnesium 2.3 1.8-2.4 Lvl) [id number] 09:38:00 Test Item Value Reference Range Interpretation Comments MPV (test code = MPV) 7.4 7.4-10.4 [id number] 09:38:00 Test Item Value Reference Range Interpretation Comments Platelet (test code = Platelet) 351 133-450 [facility]anoUrvgfwnBVRPJINJNU7103-13-74 09:38:00 Test Item Value Reference Range Interpretation Comments RDW (test code = RDW) 13.2 11.5-14.5 [id number] 09:38:00 Test Item Value Reference Range Interpretation Comments RBC (test code = RBC) 4.65 4.70-6.10 [facility]anoYyelizkBGNNAKVUEX0087-94-00 09:38:00 Test Item Value Reference Range Interpretation Comments WBC (test code = WBC) 19.6 3.7-10.4 [facility]anoWdhrbkyNUVNYMEQSS4892-92-96 09:38:00 Test Item Value Reference Range Interpretation Comments Hct (test code = Hct) 43.0 42.0-54.0 [place] [id number] 09:38:00 Test Item Value Reference Range Interpretation Comments Hgb (test code = Hgb) 14.1 14.0-18.0 [facility] PlanoZjngopcFBGNJEPFOF9518-83-88 09:38:00 Test Item Value Reference Range Interpretation Comments MCV (test code = MCV) 92.5 80.0-94.0 [facility]anoMsqpoiiIAFLEAFAOK8430-41-08 09:38:00 Test Item Value Reference Range Interpretation Comments MCHC (test code = MCHC) 32.8 32.0-36.0 [facility]anoEtekaviORTSXAIXFE0413-48-68 09:38:00 Test Item Value Reference Range Interpretation Comments MCH (test code = MCH) 30.3 pg 27.0-31.0 [facility]anoGhyaptiDDWNCEFIYZ3433-71-44 09:38:00 Test Item Value Reference Range Interpretation Comments Eosinophils # (test code 0.1 See_Comment [A utomated message] The = Eosinophils #) system whic h generated this result tra nsmitted reference range : <=0.5. The reference r yadira was not used to int erpret this result as normal/abnormal . [facility] PlanoCqkcxioUAFBKCHDEY6903-39-37 09:38:00 Test Item Value Reference Range Interpretation Comments Basophils # (test code 0.1 See_Comment [Aut omated message] The = Basophils #) system which generated this result tra nsmitted reference range : <=0.2. The reference r yadira was not used to int erpret this result as normal/abnormal . [facility] [id number] 09:38:00 Test Item Value Reference Range Interpretation Comments Segs-Bands # (test code = Segs-Bands #) 14.9 1.5-8.1 [facility]anoPxqzqyvKIRNURSRMP6320-29-16 09:38:00 Test Item Value Reference Range Interpretation Comments Monocytes # (test code 2.0 See_Comment [Aut omated message] The = Monocytes #) system which generated this result tra nsmitted reference range : <=0.8. The reference r yadira was not used to int erpret this result as normal/abnormal . [facility] PlanoBjmoyhdTNPRJDZTAO1510-65-28 09:38:00 Test Item Value Reference Range Interpretation Comments Lymphocytes # (test code = Lymphocytes 2.6 1.0-5.5 #) [facility]anoMmcfbxoLPMNFJBLMA5287-31-11 09:38:00 Test Item Value Reference Range Interpretation Comments Lymphocytes (test code = Lymphocytes) 13.0 20.0-40.0 [facility] [id number] 09:38:00 Test Item Value Reference Range Interpretation Comments Segs (test code = Segs) 76.0 45.0-75.0 [facility]anoNrxpvzeEJSXQDCDLZ2822-80-39 09:38:00 Test Item Value Reference Range Interpretation Comments Monocytes (test code = Monocytes) 10.2 2.0-12.0 [facility]anoAwzuyqfMLXLOKQDKD7722-59-28 09:38:00 Test Item Value Reference Range Interpretation Comments Basophils (test code = 0.4 See_Comment [Aut omated message] The Basophils) system which ge nerated this result tra nsmitted reference range : <=1.0. The reference r yadira was not used to int erpret this result as normal/abnormal . [facility]anoPgskvkvUTZELAUXTI2998-53-41 09:38:00 Test Item Value Reference Range Interpretation Comments Eosinophils (test code = 0.4 See_Comment [A utomated message] The Eosinophils) system which ge nerated this result tra nsmitted reference range : <=4.0. The reference r yadira was not used to int erpret this result as normal/abnormal . [facility] SystemPARATHYROID [id number] 09:38:00 Test Item Value Reference Range Interpretation Comments Ca Ion WB (test code = Ca Ion WB) 0.95 1.05-1.25 [facility] SystemPARATHYROID [id number] 09:38:00 Test Item Value Reference Range Interpretation Comments Ca Norm WB (test code = Ca Norm WB) 0.97 1.05-1.25 [facility] SystemLucooveWCXSRGEXAC4915-26-01 09:38:00 Test Item Value Reference Range Interpretation Comments Lamotrigine Lvl (test code = 8.2 2.0-20.0 Lamotrigine Lvl) [facility] SystemUbrgxdvLIOLHCYEXZ7294-77-81 09:38:00 Test Item Value Reference Range Interpretation Comments Zonisamide Lvl (test code = Zonisamide 45.3 10.0-40.0 Lvl) [facility] SystemCHEM [id number] 09:38:00 Test Item Value Reference Range Interpretation Comments Bili Total (test code = Bili Total) 0.5 0.2-1.3 [facility]2017-07-08 09:38:00 Test Item Value Reference Range Interpretation Comments ALT (test code = ALT) 29 See_Comment [Auto mated message] The system which ge nerated this result transmit michelle reference range : <=65. The reference range was not used to interpr et this result as meme l/abnormal. [facility]2017-07-08 09:38:00 Test Item Value Reference Range Interpretation Comments Globulin (test code = Globulin) 3.6 2.7-4.2 [facility]2017-07-08 09:38:00 Test Item Value Reference Range Interpretation Comments A/G Ratio (test code = A/G Ratio) 1.0 0.7-1.6 [facility]2017-07-08 09:38:00 Test Item Value Reference Range Interpretation Comments Alk Phos (test code = Alk Phos) 96 39-136 [facility]2017-07-08 09:38:00 Test Item Value Reference Range Interpretation Comments AST (test code = AST) 23 See_Comment [Auto mated message] The system which ge nerated this result transmit michelle reference range : <=37. The reference range was not used to interpr et this result as meme l/abnormal. [facility]2017-07-08 09:38:00 Test Item Value Reference Range Interpretation Comments Albumin Lvl (test code = Albumin Lvl) 3.7 3.5-5.0 [facility]2017-07-08 09:38:00 Test Item Value Reference Range Interpretation Comments Total Protein (test code = Total 7.3 6.4-8.4 Protein) [facility]2017-07-08 09:38:00 Test Item Value Reference Range Interpretation Comments B/C Ratio (test code = See Note 4(08/24/16 4:38 6-25 B/C Ratio) AM) [facility]2017-07-08 09:38:00 Test Item Value Reference Range Interpretation Comments Phosphorus (test code = Phosphorus) 3.9 2.5-4.5 [facility]2017-07-08 09:38:00 Test Item Value Reference Range Interpretation Comments Magnesium Lvl (test code = Magnesium 2.3 1.8-2.4 Lvl) [id number] 09:38:00 Test Item Value Reference Range Interpretation Comments MPV (test code = MPV) 7.4 7.4-10.4 [facility]anoDyggejuEFHRVYCIQT9206-66-55 09:38:00 Test Item Value Reference Range Interpretation Comments Platelet (test code = Platelet) 351 133-450 [facility] PlanoAatppoeRXRQHSSNKH8711-17-38 09:38:00 Test Item Value Reference Range Interpretation Comments RDW (test code = RDW) 13.2 11.5-14.5 [facility]anoIjlzvjxWVMGCAAGQG9124-65-46 09:38:00 Test Item Value Reference Range Interpretation Comments RBC (test code = RBC) 4.65 4.70-6.10 [facility] PlanoDyiqwkcFKBPCGZIQT8546-26-66 09:38:00 Test Item Value Reference Range Interpretation Comments WBC (test code = WBC) 19.6 3.7-10.4 [facility] PlanoOqczqjsVGBWWKXXBK0666-36-64 09:38:00 Test Item Value Reference Range Interpretation Comments Hct (test code = Hct) 43.0 42.0-54.0 [facility] PlanoGaoujwmSUCZYTSUFE5310-63-95 09:38:00 Test Item Value Reference Range Interpretation Comments Hgb (test code = Hgb) 14.1 14.0-18.0 [facility] PlanoNjzqorsQMXCOUSGJU9019-34-59 09:38:00 Test Item Value Reference Range Interpretation Comments MCV (test code = MCV) 92.5 80.0-94.0 [facility]anoFxmdguhRCBBLNYQNJ1303-22-11 09:38:00 Test Item Value Reference Range Interpretation Comments MCHC (test code = MCHC) 32.8 32.0-36.0 [facility] PlanoQzzufloMQGSFBTKOK9527-12-14 09:38:00 Test Item Value Reference Range Interpretation Comments MCH (test code = MCH) 30.3 pg 27.0-31.0 [facility] PlanoSsbdlquFPJMIGVMXO1614-03-14 09:38:00 Test Item Value Reference Range Interpretation Comments Eosinophils # (test code 0.1 See_Comment [A utomated message] The = Eosinophils #) system whic h generated this result tra nsmitted reference range : <=0.5. The reference r yadira was not used to int erpret this result as normal/abnormal . [facility] PlanoNaqduamDYCVBUEBKT3216-77-73 09:38:00 Test Item Value Reference Range Interpretation Comments Basophils # (test code 0.1 See_Comment [Aut omated message] The = Basophils #) system which generated this result tra nsmitted reference range : <=0.2. The reference r yadira was not used to int erpret this result as normal/abnormal . [facility] PlanoYqikfuiJSOXXNDEZW2698-01-94 09:38:00 Test Item Value Reference Range Interpretation Comments Segs-Bands # (test code = Segs-Bands #) 14.9 1.5-8.1 [facility]anoMlmhnjwFNJDVIZRPK7364-12-11 09:38:00 Test Item Value Reference Range Interpretation Comments Monocytes # (test code 2.0 See_Comment [Aut omated message] The = Monocytes #) system which generated this result tra nsmitted reference range : <=0.8. The reference r yadira was not used to int erpret this result as normal/abnormal . [facility] PlanoBahyvuvYBGVBUXZZU3363-96-68 09:38:00 Test Item Value Reference Range Interpretation Comments Lymphocytes # (test code = Lymphocytes 2.6 1.0-5.5 #) [facility] PlanoIjnhcheWIYVNWKXCI9907-04-30 09:38:00 Test Item Value Reference Range Interpretation Comments Lymphocytes (test code = Lymphocytes) 13.0 20.0-40.0 [facility] PlanoBomsjpwLIQJMKZCPV8085-29-87 09:38:00 Test Item Value Reference Range Interpretation Comments Segs (test code = Segs) 76.0 45.0-75.0 [facility] PlanoJkvvpadJPHYZSJIKU4664-39-04 09:38:00 Test Item Value Reference Range Interpretation Comments Monocytes (test code = Monocytes) 10.2 2.0-12.0 [facility] PlanoCsgvoriSDTKXGTGPT5784-89-03 09:38:00 Test Item Value Reference Range Interpretation Comments Basophils (test code = 0.4 See_Comment [Aut omated message] The Basophils) system which ge nerated this result tra nsmitted reference range : <=1.0. The reference r yadira was not used to int erpret this result as normal/abnormal . [facility] PlanoItoteahPXXLTWNTDT9137-02-24 09:38:00 Test Item Value Reference Range Interpretation Comments Eosinophils (test code = 0.4 See_Comment [A utomated message] The Eosinophils) system which ge nerated this result tra nsmitted reference range : <=4.0. The reference r yadira was not used to int erpret this result as normal/abnormal . [facility]annPARATHYROID [id number] 09:38:00 Test Item Value Reference Range Interpretation Comments Ca Ion WB (test code = Ca Ion WB) 0.95 1.05-1.25 [facility]burgannPARATHYROID [id number] 09:38:00 Test Item Value Reference Range Interpretation Comments Ca Norm WB (test code = Ca Norm WB) 0.97 1.05-1.25 [facility] SystemTsvbbkaXUGDAIFQDZ3058-50-90 09:38:00 Test Item Value Reference Range Interpretation Comments Lamotrigine Lvl (test code = 8.2 2.0-20.0 Lamotrigine Lvl) [facility]PqhshncWOFKBBEJKG6088-22-03 09:38:00 Test Item Value Reference Range Interpretation Comments Zonisamide Lvl (test code = Zonisamide 45.3 10.0-40.0 Lvl) [facility] SystemMineralRightsWorldwide.com [id number] 09:38:00 Test Item Value Reference Range Interpretation Comments Bili Total (test code = Bili Total) 0.5 0.2-1.3 [facility] SystemMineralRightsWorldwide.com [id number] 09:38:00 Test Item Value Reference Range Interpretation Comments ALT (test code = ALT) 29 See_Comment [Auto mated message] The system which ge nerated this result transmit michelle reference range : <=65. The reference range was not used to interpr et this result as meme l/abnormal. [facility] SystemMineralRightsWorldwide.com [id number] 09:38:00 Test Item Value Reference Range Interpretation Comments Globulin (test code = Globulin) 3.6 2.7-4.2 [facility]2017-07-08 09:38:00 Test Item Value Reference Range Interpretation Comments A/G Ratio (test code = A/G Ratio) 1.0 0.7-1.6 [facility]2017-07-08 09:38:00 Test Item Value Reference Range Interpretation Comments Alk Phos (test code = Alk Phos) 96 39-136 [facility] SystemMineralRightsWorldwide.com [id number] 09:38:00 Test Item Value Reference Range Interpretation Comments AST (test code = AST) 23 See_Comment [Auto mated message] The system which ge nerated this result transmit michelle reference range : <=37. The reference range was not used to interpr et this result as meme l/abnormal. [facility]2017-07-08 09:38:00 Test Item Value Reference Range Interpretation Comments Albumin Lvl (test code = Albumin Lvl) 3.7 3.5-5.0 [facility]2017-07-08 09:38:00 Test Item Value Reference Range Interpretation Comments Total Protein (test code = Total 7.3 6.4-8.4 Protein) [facility]2017-07-08 09:38:00 Test Item Value Reference Range Interpretation Comments B/C Ratio (test code = See Note 4(08/24/16 4:38 6-25 B/C Ratio) AM) [facility]2017-07-08 09:38:00 Test Item Value Reference Range Interpretation Comments Phosphorus (test code = Phosphorus) 3.9 2.5-4.5 [facility]2017-07-08 09:38:00 Test Item Value Reference Range Interpretation Comments Magnesium Lvl (test code = Magnesium 2.3 1.8-2.4 Lvl) [facility]anoFnloqhvGQMQCQKYNI5041-52-66 09:38:00 Test Item Value Reference Range Interpretation Comments MPV (test code = MPV) 7.4 7.4-10.4 [facility]anoFgouvlhZDYVAOUDLE1304-45-65 09:38:00 Test Item Value Reference Range Interpretation Comments Platelet (test code = Platelet) 351 133-450 [facility] PlanoSibfwhrAVVSRGZRKS0803-88-59 09:38:00 Test Item Value Reference Range Interpretation Comments RDW (test code = RDW) 13.2 11.5-14.5 [facility] PlanoGfiqhyeCEYZKYWKZG9088-99-61 09:38:00 Test Item Value Reference Range Interpretation Comments RBC (test code = RBC) 4.65 4.70-6.10 [facility] PlanoYzophdgTEZFAAPVJY6328-60-07 09:38:00 Test Item Value Reference Range Interpretation Comments WBC (test code = WBC) 19.6 3.7-10.4 [facility] PlanoVuvdcihIBJOYODQGS5376-55-28 09:38:00 Test Item Value Reference Range Interpretation Comments Hct (test code = Hct) 43.0 42.0-54.0 [facility] PlanoZcbgichSDGPVJWNQZ1791-06-01 09:38:00 Test Item Value Reference Range Interpretation Comments Hgb (test code = Hgb) 14.1 14.0-18.0 [facility] PlanoBhshjegFOEIBBXALJ1659-10-13 09:38:00 Test Item Value Reference Range Interpretation Comments MCV (test code = MCV) 92.5 80.0-94.0 [facility] PlanoPsjwdrcLKHJOJIWEN2152-31-00 09:38:00 Test Item Value Reference Range Interpretation Comments MCHC (test code = MCHC) 32.8 32.0-36.0 [facility] PlanoDxfigmbETLXFTFQZH8349-43-26 09:38:00 Test Item Value Reference Range Interpretation Comments MCH (test code = MCH) 30.3 pg 27.0-31.0 [facility] PlanoLmbtnciKGWAADJUNX4808-00-89 09:38:00 Test Item Value Reference Range Interpretation Comments Eosinophils # (test code 0.1 See_Comment [A utomated message] The = Eosinophils #) system whic h generated this result tra nsmitted reference range : <=0.5. The reference r yadira was not used to int erpret this result as normal/abnormal . [facility] PlanoVeexvloTNKPSIZODP7893-39-01 09:38:00 Test Item Value Reference Range Interpretation Comments Basophils # (test code 0.1 See_Comment [Aut omated message] The = Basophils #) system which generated this result tra nsmitted reference range : <=0.2. The reference r yadira was not used to int erpret this result as normal/abnormal . [facility] PlanoOaifmuqLDTVABAERR8453-01-26 09:38:00 Test Item Value Reference Range Interpretation Comments Segs-Bands # (test code = Segs-Bands #) 14.9 1.5-8.1 [facility] PlanoKihvlmxAAIRVOPEAY2586-11-75 09:38:00 Test Item Value Reference Range Interpretation Comments Monocytes # (test code 2.0 See_Comment [Aut omated message] The = Monocytes #) system which generated this result tra nsmitted reference range : <=0.8. The reference r yadira was not used to int erpret this result as normal/abnormal . [facility] PlanoAmtyitfULAEAXLDDQ8253-47-70 09:38:00 Test Item Value Reference Range Interpretation Comments Lymphocytes # (test code = Lymphocytes 2.6 1.0-5.5 #) [facility] PlanoHmxufmoLFYYKTBVEO3297-84-79 09:38:00 Test Item Value Reference Range Interpretation Comments Lymphocytes (test code = Lymphocytes) 13.0 20.0-40.0 [facility] PlanoLkthnsoVPDXTFVWXB0482-14-93 09:38:00 Test Item Value Reference Range Interpretation Comments Segs (test code = Segs) 76.0 45.0-75.0 [facility] PlanoGilzxftQGKVTZHXVA3535-47-86 09:38:00 Test Item Value Reference Range Interpretation Comments Monocytes (test code = Monocytes) 10.2 2.0-12.0 [facility] PlanoKwcyxwvFEHNGEFYKG1718-64-89 09:38:00 Test Item Value Reference Range Interpretation Comments Basophils (test code = 0.4 See_Comment [Aut omated message] The Basophils) system which ge nerated this result tra nsmitted reference range : <=1.0. The reference r yadira was not used to int erpret this result as normal/abnormal . [facility] PlanoJyenbiuAXYEEKUEHO9252-99-98 09:38:00 Test Item Value Reference Range Interpretation Comments Eosinophils (test code = 0.4 See_Comment [A utomated message] The Eosinophils) system which ge nerated this result tra nsmitted reference range : <=4.0. The reference r yadira was not used to int erpret this result as normal/abnormal . [facility] [id number] 09:38:00 Test Item Value Reference Range Interpretation Comments Ca Ion WB (test code = Ca Ion WB) 0.95 1.05-1.25 [facility] [id number] 09:38:00 Test Item Value Reference Range Interpretation Comments Ca Norm WB (test code = Ca Norm WB) 0.97 1.05-1.25 [facility]BipxxmoCQPWGHZGKA9882-42-53 09:38:00 Test Item Value Reference Range Interpretation Comments Lamotrigine Lvl (test code = 8.2 2.0-20.0 Lamotrigine Lvl) [facility]ulkymXLDWUUDIYI3614-[facility]-13 09:38:00 Test Item Value Reference Range Interpretation Comments Zonisamide Lvl (test code = Zonisamide 45.3 10.0-40.0 Lvl) [facility] [id number] 09:38:00 Test Item Value Reference Range Interpretation Comments Bili Total (test code = Bili Total) 0.5 0.2-1.3 [facility]2017-07-08 09:38:00 Test Item Value Reference Range Interpretation Comments ALT (test code = ALT) 29 See_Comment [Auto mated message] The system which ge nerated this result transmit michelle reference range : <=65. The reference range was not used to interpr et this result as meme l/abnormal. [facility]2017-07-08 09:38:00 Test Item Value Reference Range Interpretation Comments Globulin (test code = Globulin) 3.6 2.7-4.2 [facility]2017-07-08 09:38:00 Test Item Value Reference Range Interpretation Comments A/G Ratio (test code = A/G Ratio) 1.0 0.7-1.6 [facility]2017-07-08 09:38:00 Test Item Value Reference Range Interpretation Comments Alk Phos (test code = Alk Phos) 96 39-136 [facility]2017-07-08 09:38:00 Test Item Value Reference Range Interpretation Comments AST (test code = AST) 23 See_Comment [Auto mated message] The system which ge nerated this result transmit michelle reference range : <=37. The reference range was not used to interpr et this result as meme l/abnormal. [facility]2017-07-08 09:38:00 Test Item Value Reference Range Interpretation Comments Albumin Lvl (test code = Albumin Lvl) 3.7 3.5-5.0 [facility]2017-07-08 09:38:00 Test Item Value Reference Range Interpretation Comments Total Protein (test code = Total 7.3 6.4-8.4 Protein) [facility]2017-07-08 09:38:00 Test Item Value Reference Range Interpretation Comments B/C Ratio (test code = See Note 4(08/24/16 4:38 6-25 B/C Ratio) AM) [facility]2017-07-08 09:38:00 Test Item Value Reference Range Interpretation Comments Phosphorus (test code = Phosphorus) 3.9 2.5-4.5 [facility]2017-07-08 09:38:00 Test Item Value Reference Range Interpretation Comments Magnesium Lvl (test code = Magnesium 2.3 1.8-2.4 Lvl) [facility]KqiuyofQDIODUZGML3867-97-71 09:38:00 Test Item Value Reference Range Interpretation Comments MPV (test code = MPV) 7.4 7.4-10.4 [facility]anoDerpufoZUPIUIAHLE4260-05-22 09:38:00 Test Item Value Reference Range Interpretation Comments Platelet (test code = Platelet) 351 133-450 [facility]anoTgbpkhgQHGHVAPCQJ3484-99-27 09:38:00 Test Item Value Reference Range Interpretation Comments RDW (test code = RDW) 13.2 11.5-14.5 [facility]anoOayxhntHOPUYWQWQA7404-27-65 09:38:00 Test Item Value Reference Range Interpretation Comments RBC (test code = RBC) 4.65 4.70-6.10 [facility]anoEomwjogSFPPSPPZLY4008-82-65 09:38:00 Test Item Value Reference Range Interpretation Comments WBC (test code = WBC) 19.6 3.7-10.4 [facility]anoOldnnwlVYQBQYSXBJ7014-38-63 09:38:00 Test Item Value Reference Range Interpretation Comments Hct (test code = Hct) 43.0 42.0-54.0 [facility]anoEncerjqWHMJNIFERN9059-31-18 09:38:00 Test Item Value Reference Range Interpretation Comments Hgb (test code = Hgb) 14.1 14.0-18.0 [facility]anoDxnvtkdKYWDCLBZRV3135-71-75 09:38:00 Test Item Value Reference Range Interpretation Comments MCV (test code = MCV) 92.5 80.0-94.0 [facility] PlanoLinzfivLJLXJRRSNF5483-77-49 09:38:00 Test Item Value Reference Range Interpretation Comments MCHC (test code = MCHC) 32.8 32.0-36.0 [facility]anoHicveeoZTUUPPDKKG1785-00-14 09:38:00 Test Item Value Reference Range Interpretation Comments MCH (test code = MCH) 30.3 pg 27.0-31.0 [facility]anoLabfseeXNSJOLKIEU9887-41-85 09:38:00 Test Item Value Reference Range Interpretation Comments Eosinophils # (test code 0.1 See_Comment [A utomated message] The = Eosinophils #) system [facility] generated this result tra nsmitted reference range : <=0.5. The reference r yadira was not used to int erpret this result as normal/abnormal . [facility] PlanoZojhjgxLQUOXVYBCN8523-61-92 09:38:00 Test Item Value Reference Range Interpretation Comments Basophils # (test code 0.1 See_Comment [Aut omated message] The = Basophils #) system which generated this result tra nsmitted reference range : <=0.2. The reference r yadira was not used to int erpret this result as normal/abnormal . [facility] PlanoZtmaxijGQZRTMHCCK0649-01-66 09:38:00 Test Item Value Reference Range Interpretation Comments Segs-Bands # (test code = Segs-Bands #) 14.9 1.5-8.1 [facility]anoSrfbtgdHBYBXSMBPH5326-41-03 09:38:00 Test Item Value Reference Range Interpretation Comments Monocytes # (test code 2.0 See_Comment [Aut omated message] The = Monocytes #) system which generated this result tra nsmitted reference range : <=0.8. The reference r yadira was not used to int erpret this result as normal/abnormal . [facility]anoVhuhxdcPXFNZJZUYC4739-51-76 09:38:00 Test Item Value Reference Range Interpretation Comments Lymphocytes # (test code = Lymphocytes 2.6 1.0-5.5 #) [facility]anoJkwxcrgBGEUALPKLI2564-15-15 09:38:00 Test Item Value Reference Range Interpretation Comments Lymphocytes (test code = Lymphocytes) 13.0 20.0-40.0 [facility] PlanoYqvmjpjDDDUVZFIZI5205-27-02 09:38:00 Test Item Value Reference Range Interpretation Comments Segs (test code = Segs) 76.0 45.0-75.0 [facility]anoVygndeyVYWMBRZWXV6841-36-53 09:38:00 Test Item Value Reference Range Interpretation Comments Monocytes (test code = Monocytes) 10.2 2.0-12.0 [facility]anoIgwkbnoTCNMAIEYJD1448-64-09 09:38:00 Test Item Value Reference Range Interpretation Comments Basophils (test code = 0.4 See_Comment [Aut omated message] The Basophils) system which ge nerated this result tra nsmitted reference range : <=1.0. The reference r yadira was not used to int erpret this result as normal/abnormal . [facility] PlanoVbbgtdsEEUARMULRX5251-32-13 09:38:00 Test Item Value Reference Range Interpretation Comments Eosinophils (test code = 0.4 See_Comment [A utomated message] The Eosinophils) system which ge nerated this result tra nsmitted reference range : <=4.0. The reference r yadira was not used to int erpret this result as normal/abnormal . [facility]annPARATHYROID JKIHGQG0132-37-40 09:38:00 Test Item Value Reference Range Interpretation Comments Ca Ion WB (test code = Ca Ion WB) 0.95 1.05-1.25 [facility] SystemPARATHYROID [id number] 09:38:00 Test Item Value Reference Range Interpretation Comments Ca Norm WB (test code = Ca Norm WB) 0.97 1.05-1.25 [facility] SystemBwokkmdYXSOPACVRW6467-32-29 09:38:00 Test Item Value Reference Range Interpretation Comments Lamotrigine Lvl (test code = 8.2 2.0-20.0 Lamotrigine Lvl) [facility]andQajwzrdKNZRDSVEKH9274-37-14 09:38:00 Test Item Value Reference Range Interpretation Comments Zonisamide Lvl (test code = Zonisamide 45.3 10.0-40.0 Lvl) [facility]burgGeolab-[facility] [id number] 09:38:00 Test Item Value Reference Range Interpretation Comments Bili Total (test code = Bili Total) 0.5 0.2-1.3 [facility] EdinburgGeolab-[facility] [id number] 09:38:00 Test Item Value Reference Range Interpretation Comments ALT (test code = ALT) 29 See_Comment [Auto mated message] The system which ge nerated this result transmit michelle reference range : <=65. The reference range was not used to interpr et this result as meme l/abnormal. [facility] [id number] 09:38:00 Test Item Value Reference Range Interpretation Comments Globulin (test code = Globulin) 3.6 2.7-4.2 [facility] EdinburgGeol[facility] [id number] 09:38:00 Test Item Value Reference Range Interpretation Comments A/G Ratio (test code = A/G Ratio) 1.0 0.7-1.6 [facility] EdinburgGeolab-IT [id number] 09:38:00 Test Item Value Reference Range Interpretation Comments Alk Phos (test code = Alk Phos) 96 39-136 [facility]2017-07-08 09:38:00 Test Item Value Reference Range Interpretation Comments AST (test code = AST) 23 See_Comment [Auto mated message] The system which ge nerated this result transmit michelle reference range : <=37. The reference range was not used to interpr et this result as meme l/abnormal. [facility]2017-07-08 09:38:00 Test Item Value Reference Range Interpretation Comments Albumin Lvl (test code = Albumin Lvl) 3.7 3.5-5.0 [facility]2017-07-08 09:38:00 Test Item Value Reference Range Interpretation Comments Total Protein (test code = Total 7.3 6.4-8.4 Protein) [facility]2017-07-08 09:38:00 Test Item Value Reference Range Interpretation Comments B/C Ratio (test code = See Note 4(08/24/16 4:38 6-25 B/C Ratio) AM) [facility]2017-07-08 09:38:00 Test Item Value Reference Range Interpretation Comments Phosphorus (test code = Phosphorus) 3.9 2.5-4.5 [facility]2017-07-08 09:38:00 Test Item Value Reference Range Interpretation Comments Magnesium Lvl (test code = Magnesium 2.3 1.8-2.4 Lvl) [facility]anoXxsuclnQBTIFJLWOF4886-52-41 09:38:00 Test Item Value Reference Range Interpretation Comments MPV (test code = MPV) 7.4 7.4-10.4 [facility]anoHfusluuWXBQJPGRDX2959-71-17 09:38:00 Test Item Value Reference Range Interpretation Comments Platelet (test code = Platelet) 351 133-450 [facility] PlanoWngmqieGMFLSPFOCJ9094-45-87 09:38:00 Test Item Value Reference Range Interpretation Comments RDW (test code = RDW) 13.2 11.5-14.5 [facility]anoAfofrdnOZWDCKDDFI4802-15-91 09:38:00 Test Item Value Reference Range Interpretation Comments RBC (test code = RBC) 4.65 4.70-6.10 [facility]anoRxxqnkkXTVGZSMUEA7065-28-71 09:38:00 Test Item Value Reference Range Interpretation Comments WBC (test code = WBC) 19.6 3.7-10.4 [facility]anoHyrlskbCVGHOZCLPL9173-69-46 09:38:00 Test Item Value Reference Range Interpretation Comments Hct (test code = Hct) 43.0 42.0-54.0 [facility]anoEnoukrdDYHJMGPYQW4484-33-05 09:38:00 Test Item Value Reference Range Interpretation Comments Hgb (test code = Hgb) 14.1 14.0-18.0 [facility]anoDnvzipfUYURFPBNJU5959-22-18 09:38:00 Test Item Value Reference Range Interpretation Comments MCV (test code = MCV) 92.5 80.0-94.0 [facility]anoPndrvunELFLOTIBPF5173-28-57 09:38:00 Test Item Value Reference Range Interpretation Comments MCHC (test code = MCHC) 32.8 32.0-36.0 [facility] PlanoLdgwjqfZPEEVQKKJD9665-51-60 09:38:00 Test Item Value Reference Range Interpretation Comments MCH (test code = MCH) 30.3 pg 27.0-31.0 [facility]anoCgrhdqxFNVUALLZZW8422-46-73 09:38:00 Test Item Value Reference Range Interpretation Comments Eosinophils # (test code 0.1 See_Comment [A utomated message] The = Eosinophils #) system whic h generated this result tra nsmitted reference range : <=0.5. The reference r yadira was not used to int erpret this result as normal/abnormal . [facility] PlanoBnuracyIPHPHQGYSG0897-69-63 09:38:00 Test Item Value Reference Range Interpretation Comments Basophils # (test code 0.1 See_Comment [Aut omated message] The = Basophils #) system which generated this result tra nsmitted reference range : <=0.2. The reference r yadira was not used to int erpret this result as normal/abnormal . [facility] PlanoDhdpghpEVRYKMVZHC9933-68-81 09:38:00 Test Item Value Reference Range Interpretation Comments Segs-Bands # (test code = Segs-Bands #) 14.9 1.5-8.1 [facility] PlanoLkrimnlUYOFUCTSAX7495-54-56 09:38:00 Test Item Value Reference Range Interpretation Comments Monocytes # (test code 2.0 See_Comment [Aut omated message] The = Monocytes #) system which generated this result tra nsmitted reference range : <=0.8. The reference r yadira was not used to int erpret this result as normal/abnormal . [facility] PlanoVdeskraKQEFGYVWZQ2596-50-93 09:38:00 Test Item Value Reference Range Interpretation Comments Lymphocytes # (test code = Lymphocytes 2.6 1.0-5.5 #) [facility] PlanoZygciykVPMDEBHIUO0822-51-68 09:38:00 Test Item Value Reference Range Interpretation Comments Lymphocytes (test code = Lymphocytes) 13.0 20.0-40.0 [facility] PlanoRidntymACFKWFZEAT5045-72-35 09:38:00 Test Item Value Reference Range Interpretation Comments Segs (test code = Segs) 76.0 45.0-75.0 [facility]anoVdcsxnxGNNMMDDZHT3134-10-00 09:38:00 Test Item Value Reference Range Interpretation Comments Monocytes (test code = Monocytes) 10.2 2.0-12.0 [facility] PlanoNpcukkoCELFXSDIOZ5604-15-51 09:38:00 Test Item Value Reference Range Interpretation Comments Basophils (test code = 0.4 See_Comment [Aut omated message] The Basophils) system which ge nerated this result tra nsmitted reference range : <=1.0. The reference r yadira was not used to int erpret this result as normal/abnormal . [facility] PlanoYfkanxzVQOKHQXZUG7294-86-41 09:38:00 Test Item Value Reference Range Interpretation Comments Eosinophils (test code = 0.4 See_Comment [A utomated message] The Eosinophils) system which ge nerated this result tra nsmitted reference range : <=4.0. The reference r yadira was not used to int erpret this result as normal/abnormal . [facility]villeROID TBHEIGS9545-03-81 09:38:00 Test Item Value Reference Range Interpretation Comments Ca Ion WB (test code = Ca Ion WB) 0.95 1.05-1.25 [facility]ATH[facility] [id number] 09:38:00 Test Item Value Reference Range Interpretation Comments Ca Norm WB (test code = Ca Norm WB) 0.97 1.05-1.25 [facility]ellandXtochuiVNZXTMSBOX1354-44-85 09:38:00 Test Item Value Reference Range Interpretation Comments Lamotrigine Lvl (test code = 8.2 2.0-20.0 Lamotrigine Lvl) [place] [id number] 09:38:00 Test Item Value Reference Range Interpretation Comments Zonisamide Lvl (test code = Zonisamide 45.3 10.0-40.0 Lvl) [facility]2017-07-08 09:38:00 Test Item Value Reference Range Interpretation Comments Bili Total (test code = Bili Total) 0.5 0.2-1.3 [facility]2017-07-08 09:38:00 Test Item Value Reference Range Interpretation Comments ALT (test code = ALT) 29 See_Comment [Auto mated message] The system which ge nerated this result transmit michelle reference range : <=65. The reference range was not used to interpr et this result as meme l/abnormal. [facility]2017-07-08 09:38:00 Test Item Value Reference Range Interpretation Comments Globulin (test code = Globulin) 3.6 2.7-4.2 [facility]2017-07-08 09:38:00 Test Item Value Reference Range Interpretation Comments A/G Ratio (test code = A/G Ratio) 1.0 0.7-1.6 [facility]2017-07-08 09:38:00 Test Item Value Reference Range Interpretation Comments Alk Phos (test code = Alk Phos) 96 39-136 [facility]2017-07-08 09:38:00 Test Item Value Reference Range Interpretation Comments AST (test code = AST) 23 See_Comment [Auto mated message] The system which ge nerated this result transmit michelle reference range : <=37. The reference range was not used to interpr et this result as meme l/abnormal. [facility]2017-07-08 09:38:00 Test Item Value Reference Range Interpretation Comments Albumin Lvl (test code = Albumin Lvl) 3.7 3.5-5.0 [facility]2017-07-08 09:38:00 Test Item Value Reference Range Interpretation Comments Total Protein (test code = Total 7.3 6.4-8.4 Protein) [facility]2017-07-08 09:38:00 Test Item Value Reference Range Interpretation Comments B/C Ratio (test code = See Note 4(08/24/16 4:38 6-25 B/C Ratio) AM) [facility]2017-07-08 09:38:00 Test Item Value Reference Range Interpretation Comments Phosphorus (test code = Phosphorus) 3.9 2.5-4.5 [facility]2017-07-08 09:38:00 Test Item Value Reference Range Interpretation Comments Magnesium Lvl (test code = Magnesium 2.3 1.8-2.4 Lvl) [facility]anoRdszsjjEFZOHJYEHW1914-47-57 09:38:00 Test Item Value Reference Range Interpretation Comments MPV (test code = MPV) 7.4 7.4-10.4 [facility]anoDgpnqgsSZKTUZDZPP6398-02-04 09:38:00 Test Item Value Reference Range Interpretation Comments Platelet (test code = Platelet) 351 133-450 [facility] PlanoJuvvwxsKZHOZKYOBE0345-52-00 09:38:00 Test Item Value Reference Range Interpretation Comments RDW (test code = RDW) 13.2 11.5-14.5 [facility] PlanoRhqwlydWPRCTSEEWB8036-32-91 09:38:00 Test Item Value Reference Range Interpretation Comments RBC (test code = RBC) 4.65 4.70-6.10 [facility]anoRsstwzqGVOOERSBXF5450-80-62 09:38:00 Test Item Value Reference Range Interpretation Comments WBC (test code = WBC) 19.6 3.7-10.4 [facility]anoTihqbwaYVCQFIXTFK0180-90-24 09:38:00 Test Item Value Reference Range Interpretation Comments Hct (test code = Hct) 43.0 42.0-54.0 [facility]anoLryasozJWBWSELQJT7502-13-62 09:38:00 Test Item Value Reference Range Interpretation Comments Hgb (test code = Hgb) 14.1 14.0-18.0 [facility]anoEelxgpsELLTTDQVIR3242-92-58 09:38:00 Test Item Value Reference Range Interpretation Comments MCV (test code = MCV) 92.5 80.0-94.0 [facility]anoHtfdpyzZETPWHMTWE5489-58-05 09:38:00 Test Item Value Reference Range Interpretation Comments MCHC (test code = MCHC) 32.8 32.0-36.0 [facility] PlanoCrwyiftRRLSQCFQXI4321-95-53 09:38:00 Test Item Value Reference Range Interpretation Comments MCH (test code = MCH) 30.3 pg 27.0-31.0 [facility]anoVwhbogmNVHIRNTGLG8958-26-05 09:38:00 Test Item Value Reference Range Interpretation Comments Eosinophils # (test code 0.1 See_Comment [A utomated message] The = Eosinophils #) system whic h generated this result tra nsmitted reference range : <=0.5. The reference r yadira was not used to int erpret this result as normal/abnormal . [facility] PlanoXqiyyvcZLCOGVWVNW0629-67-17 09:38:00 Test Item Value Reference Range Interpretation Comments Basophils # (test code 0.1 See_Comment [Aut omated message] The = Basophils #) system which generated this result tra nsmitted reference range : <=0.2. The reference r yadira was not used to int erpret this result as normal/abnormal . [facility] PlanoBgudqepKHRQOTSSYK6045-71-76 09:38:00 Test Item Value Reference Range Interpretation Comments Segs-Bands # (test code = Segs-Bands #) 14.9 1.5-8.1 [facility]anoLgrlmhbNNRSZZVPVS8090-71-39 09:38:00 Test Item Value Reference Range Interpretation Comments Monocytes # (test code 2.0 See_Comment [Aut omated message] The = Monocytes #) system which generated this result tra nsmitted reference range : <=0.8. The reference r yadira was not used to int erpret this result as normal/abnormal . [facility] PlanoXhewrmkUONHWTKCCZ5883-85-40 09:38:00 Test Item Value Reference Range Interpretation Comments Lymphocytes # (test code = Lymphocytes 2.6 1.0-5.5 #) [facility] PlanoUthsincRNZLDTQAWW4019-06-91 09:38:00 Test Item Value Reference Range Interpretation Comments Lymphocytes (test code = Lymphocytes) 13.0 20.0-40.0 [facility] PlanoGjeumcxWHPTWXAZXI4531-79-14 09:38:00 Test Item Value Reference Range Interpretation Comments Segs (test code = Segs) 76.0 45.0-75.0 [facility] PlanoLfnpcwmZJRBKYNOVE0832-67-32 09:38:00 Test Item Value Reference Range Interpretation Comments Monocytes (test code = Monocytes) 10.2 2.0-12.0 [facility] PlanoTbhjbtrVEOKTLTEPP6828-07-64 09:38:00 Test Item Value Reference Range Interpretation Comments Basophils (test code = 0.4 See_Comment [Aut omated message] The Basophils) system which ge nerated this result tra nsmitted reference range : <=1.0. The reference r yadira was not used to int erpret this result as normal/abnormal . [place] [id number] 09:38:00 Test Item Value Reference Range Interpretation Comments Eosinophils (test code = 0.4 See_Comment [A utomated message] The Eosinophils) system which ge nerated this result tra nsmitted reference range : <=4.0. The reference r yadira was not used to int erpret this result as normal/abnormal . [facility]burgannPARATHYROID [id number] 09:38:00 Test Item Value Reference Range Interpretation Comments Ca Ion WB (test code = Ca Ion WB) 0.95 1.05-1.25 [facility]burgannPARATHYROID [id number] 09:38:00 Test Item Value Reference Range Interpretation Comments Ca Norm WB (test code = Ca Norm WB) 0.97 1.05-1.25 [facility] EdinburgVazvikyGDYARKFXFS7774-99-46 09:38:00 Test Item Value Reference Range Interpretation Comments Lamotrigine Lvl (test code = 8.2 2.0-20.0 Lamotrigine Lvl) [facility] SystemVoybwouFLWNKCKFUX2764-69-82 09:38:00 Test Item Value Reference Range Interpretation Comments Zonisamide Lvl (test code = Zonisamide 45.3 10.0-40.0 Lvl) [facility]burgannDRUG [id number] 06:06:00 Test Item Value Reference Range Interpretation Comments U Amph Scr (test code Negative *NA*(08/24/16 = U Amph Scr) 1:06 AM) [facility]burgannDRUG [id number] 06:06:00 Test Item Value Reference Range Interpretation Comments U Cocaine Scr (test Negative *NA*(08/24/16 code = U Cocaine Scr) 1:06 AM) [facility]burgannDRUG [id number] 06:06:00 Test Item Value Reference Range Interpretation Comments U Cannab Scr (test Negative *NA*(08/24/16 code = U Cannab Scr) 1:06 AM) [facility]burgannDRUG [id number] 06:06:00 Test Item Value Reference Range Interpretation Comments U Opiate Scr (test Negative *NA*(08/24/16 code = U Opiate Scr) 1:06 AM) [facility]burgannDRUG [id number] 06:06:00 Test Item Value Reference Range Interpretation Comments U Phencyc Scr (test Negative *NA*(08/24/16 code = U Phencyc Scr) 1:06 AM) [facility] [id number] 06:06:00 Test Item Value Reference Range Interpretation Comments U Methadone Scr (test Negative *NA*(08/24/16 code = U Methadone Scr) 1:06 AM) [facility] [id number] 06:06:00 Test Item Value Reference Range Interpretation Comments U Helen Scr (test code Negative *NA*(08/24/16 = U Helen Scr) 1:06 AM) [facility] [id number] 06:06:00 Test Item Value Reference Range Interpretation Comments U Benzodia Scr (test Positive *ABN*(08/24/16 code = U Benzodia Scr) 1:06 AM) [facility] [id number] 06:06:00 Test Item Value Reference Range Interpretation Comments U Propoxyph Scr (test Negative *NA*(08/24/16 code = U Propoxyph Scr) 1:06 AM) [facility] [id number] 06:06:00 Test Item Value Reference Range Interpretation Comments UDS Note (test code = See Note (08/24/16 1:06 UDS Note) AM) [facility] [id number] 06:06:00 Test Item Value Reference Range Interpretation Comments UA WBC (test code = 1 See_Comment [Automa michelle message] The UA WBC) system which ge nerated this result transmit michelle reference range : <=5. The reference range was not used to interpr et this result as meme l/abnormal. [facility] [id number] 06:06:00 Test Item Value Reference Range Interpretation Comments UA Mucus (test code = UA Mucus) Few /LPF [facility] [id number] 06:06:00 Test Item Value Reference Range Interpretation Comments UA Sq Epi (test code = UA Sq Epi) None Seen [facility] [id number] 06:06:00 Test Item Value Reference Range Interpretation Comments UA Urobilinogen (test code = UA <=1.0 mg/dL 0.1-1.0 Urobilinogen) [facility] [id number] 06:06:00 Test Item Value Reference Range Interpretation Comments UA Color (test code = Light Yellow UA Color) *NA*(08/24/16 1:06 AM) [facility] AND [id number] 06:06:00 Test Item Value Reference Range Interpretation Comments UA Turbidity (test code = Clear (08/24/16 1:06 UA Turbidity) AM) [facility] AND [id number] 06:06:00 Test Item Value Reference Range Interpretation Comments UA Glucose (test code = UA Negative mg/dL Glucose) [facility] AND [id number] 06:06:00 Test Item Value Reference Range Interpretation Comments UA Ketones (test code = UA Negative mg/dL Ketones) [facility] AND [id number] 06:06:00 Test Item Value Reference Range Interpretation Comments UA Protein (test code = UA Protein) 30 mg/dL [facility] AND [id number] 06:06:00 Test Item Value Reference Range Interpretation Comments UA Spec Grav (test code = UA Spec Grav) 1.006 [facility] AND [id number] 06:06:00 Test Item Value Reference Range Interpretation Comments UA pH (test code = UA pH) 7.5 5.0-8.0 [facility] AND [id number] 06:06:00 Test Item Value Reference Range Interpretation Comments UA Bili (test code = Negative *NA*(08/24/16 UA Bili) 1:06 AM) [facility] AND [id number] 06:06:00 Test Item Value Reference Range Interpretation Comments UA Blood (test code = Negative (08/24/16 1:06 UA Blood) AM) [facility] AND [id number] 06:06:00 Test Item Value Reference Range Interpretation Comments UA Nitrite (test code Negative (08/24/16 1:06 = UA Nitrite) AM) [facility] AND [id number] 06:06:00 Test Item Value Reference Range Interpretation Comments UA Leuk Est (test Negative (08/24/16 1:06 code = UA Leuk Est) AM) [facility] AND [id number] 06:06:00 Test Item Value Reference Range Interpretation Comments UA pH (test code = UA pH) 7.0 1 5.0-8.0 [facility] AND [id number] 06:06:00 Test Item Value Reference Range Interpretation Comments UA Protein (test code = UA Protein) 30 mg/dL [facility] AND [id number] 06:06:00 Test Item Value Reference Range Interpretation Comments UA Glucose (test code Negative (08/24/16 1:06 = UA Glucose) AM) [facility] AND [id number] 06:06:00 Test Item Value Reference Range Interpretation Comments UA Ketones (test code Negative *NA*(08/24/16 = UA Ketones) 1:06 AM) [facility] AND [id number] 06:06:00 Test Item Value Reference Range Interpretation Comments UA Bili (test code = Negative *NA*(08/24/16 UA Bili) 1:06 AM) [facility] AND [id number] 06:06:00 Test Item Value Reference Range Interpretation Comments UA Nitrite (test code Negative (08/24/16 1:06 = UA Nitrite) AM) [facility] AND [id number] 06:06:00 Test Item Value Reference Range Interpretation Comments UA Leuk Est (test Negative (08/24/16 1:06 code = UA Leuk Est) AM) [facility] AND [id number] 06:06:00 Test Item Value Reference Range Interpretation Comments UA Sq Epi (test code = None Seen (08/24/16 1:06 UA Sq Epi) AM) [facility] AND [id number] 06:06:00 Test Item Value Reference Range Interpretation Comments UA WBC (test code = UA None Seen (08/24/16 1:06 WBC) AM) [facility] AND [id number] 06:06:00 Test Item Value Reference Range Interpretation Comments UA RBC (test None Seen See_Comment [Automated mes maggie] code = UA RBC) (08/24/16 1:06 AM) [employer] which generated this result transmitted ref erence range: <=2. The reference range was not used to int erpret this result as normal/abnormal . [facility] AND [id number] 06:06:00 Test Item Value Reference Range Interpretation Comments UA Color (test code = Yellow *NA*(08/24/16 1:06 UA Color) AM) [facility] [id number] 06:06:00 Test Item Value Reference Range Interpretation Comments UA Turbidity (test code = Clear (08/24/16 1:06 UA Turbidity) AM) [facility] [id number] 06:06:00 Test Item Value Reference Range Interpretation Comments UA Spec Grav (test code = UA Spec 1.010 1 Grav) [facility] [id number] 06:06:00 Test Item Value Reference Range Interpretation Comments UA Urobilinogen (test code = UA 0.2 0.1-1.0 Urobilinogen) [facility] [id number] 06:06:00 Test Item Value Reference Range Interpretation Comments UA Hyal Cast 0-2 (08/24/16 1:06 See_Comment [Automated message] (test code = UA AM) The system w [employer] Hyal Cast) generated this result transmitted ref erence range: <=2. The reference range was not used to int erpret this result as normal/abnormal . [facility] AND [id number] 06:06:00 Test Item Value Reference Range Interpretation Comments UA Blood (test code = Trace *ABN*(08/24/16 UA Blood) 1:06 AM) [facility] [id number] 06:06:00 Test Item Value Reference Range Interpretation Comments U Amph Scr (test code Negative *NA*(08/24/16 = U Amph Scr) 1:06 AM) [facility] [id number] 06:06:00 Test Item Value Reference Range Interpretation Comments U Cocaine Scr (test Negative *NA*(08/24/16 code = U Cocaine Scr) 1:06 AM) [facility] [id number] 06:06:00 Test Item Value Reference Range Interpretation Comments U Cannab Scr (test Negative *NA*(08/24/16 code = U Cannab Scr) 1:06 AM) [facility] [id number] 06:06:00 Test Item Value Reference Range Interpretation Comments U Opiate Scr (test Negative *NA*(08/24/16 code = U Opiate Scr) 1:06 AM) [facility] [id number] 06:06:00 Test Item Value Reference Range Interpretation Comments U Phencyc Scr (test Negative *NA*(08/24/16 code = U Phencyc Scr) 1:06 AM) [facility] [id number] 06:06:00 Test Item Value Reference Range Interpretation Comments U Methadone Scr (test Negative *NA*(08/24/16 code = U Methadone Scr) 1:06 AM) [facility] [id number] 06:06:00 Test Item Value Reference Range Interpretation Comments U Helen Scr (test code Negative *NA*(08/24/16 = U Helen Scr) 1:06 AM) [facility] [id number] 06:06:00 Test Item Value Reference Range Interpretation Comments U Benzodia Scr (test Positive *ABN*(08/24/16 code = U Benzodia Scr) 1:06 AM) [facility] [id number] 06:06:00 Test Item Value Reference Range Interpretation Comments U Propoxyph Scr (test Negative *NA*(08/24/16 code = U Propoxyph Scr) 1:06 AM) [facility] [id number] 06:06:00 Test Item Value Reference Range Interpretation Comments UDS Note (test code = See Note (08/24/16 1:06 UDS Note) AM) [facility] [id number] 06:06:00 Test Item Value Reference Range Interpretation Comments UA WBC (test code = 1 See_Comment [Automa michelle message] The UA WBC) system which ge nerated this result transmit michelle reference range : <=5. The reference range was not used to interpr et this result as meme l/abnormal. [facility] [id number] 06:06:00 Test Item Value Reference Range Interpretation Comments UA Mucus (test code = UA Mucus) Few /LPF [facility] [id number] 06:06:00 Test Item Value Reference Range Interpretation Comments UA Sq Epi (test code = UA Sq Epi) None Seen [facility] [id number] 06:06:00 Test Item Value Reference Range Interpretation Comments UA Urobilinogen (test code = UA <=1.0 mg/dL 0.1-1.0 Urobilinogen) [facility] [id number] 06:06:00 Test Item Value Reference Range Interpretation Comments UA Color (test code = Light Yellow UA Color) *NA*(08/24/16 1:06 AM) [facility] AND [id number] 06:06:00 Test Item Value Reference Range Interpretation Comments UA Turbidity (test code = Clear (08/24/16 1:06 UA Turbidity) AM) [facility] AND [id number] 06:06:00 Test Item Value Reference Range Interpretation Comments UA Glucose (test code = UA Negative mg/dL Glucose) [facility] AND [id number] 06:06:00 Test Item Value Reference Range Interpretation Comments UA Ketones (test code = UA Negative mg/dL Ketones) [facility] AND [id number] 06:06:00 Test Item Value Reference Range Interpretation Comments UA Protein (test code = UA Protein) 30 mg/dL [facility] AND [id number] 06:06:00 Test Item Value Reference Range Interpretation Comments UA Spec Grav (test code = UA Spec Grav) 1.006 [facility] AND [id number] 06:06:00 Test Item Value Reference Range Interpretation Comments UA pH (test code = UA pH) 7.5 5.0-8.0 [facility] AND [id number] 06:06:00 Test Item Value Reference Range Interpretation Comments UA Bili (test code = Negative *NA*(08/24/16 UA Bili) 1:06 AM) [facility] AND [id number] 06:06:00 Test Item Value Reference Range Interpretation Comments UA Blood (test code = Negative (08/24/16 1:06 UA Blood) AM) [facility] AND [id number] 06:06:00 Test Item Value Reference Range Interpretation Comments UA Nitrite (test code Negative (08/24/16 1:06 = UA Nitrite) AM) [facility] AND [id number] 06:06:00 Test Item Value Reference Range Interpretation Comments UA Leuk Est (test Negative (08/24/16 1:06 code = UA Leuk Est) AM) [facility] AND [id number] 06:06:00 Test Item Value Reference Range Interpretation Comments UA pH (test code = UA pH) 7.0 1 5.0-8.0 [facility] AND [id number] 06:06:00 Test Item Value Reference Range Interpretation Comments UA Protein (test code = UA Protein) 30 mg/dL [facility] AND [id number] 06:06:00 Test Item Value Reference Range Interpretation Comments UA Glucose (test code Negative (08/24/16 1:06 = UA Glucose) AM) [facility] AND [id number] 06:06:00 Test Item Value Reference Range Interpretation Comments UA Ketones (test code Negative *NA*(08/24/16 = UA Ketones) 1:06 AM) [facility] AND [id number] 06:06:00 Test Item Value Reference Range Interpretation Comments UA Bili (test code = Negative *NA*(08/24/16 UA Bili) 1:06 AM) [facility] AND [id number] 06:06:00 Test Item Value Reference Range Interpretation Comments UA Nitrite (test code Negative (08/24/16 1:06 = UA Nitrite) AM) [facility] AND [id number] 06:06:00 Test Item Value Reference Range Interpretation Comments UA Leuk Est (test Negative (08/24/16 1:06 code = UA Leuk Est) AM) [facility] AND [id number] 06:06:00 Test Item Value Reference Range Interpretation Comments UA Sq Epi (test code = None Seen (08/24/16 1:06 UA Sq Epi) AM) [facility] AND [id number] 06:06:00 Test Item Value Reference Range Interpretation Comments UA WBC (test code = UA None Seen (08/24/16 1:06 WBC) AM) [facility] AND [id number] 06:06:00 Test Item Value Reference Range Interpretation Comments UA RBC (test None Seen See_Comment [Automated mes maggie] code = UA RBC) (08/24/16 1:06 AM) The syste m which generated this result transmitted ref erence range: <=2. The reference range was not used to int erpret this result as normal/abnormal . [facility] AND [id number] 06:06:00 Test Item Value Reference Range Interpretation Comments UA Color (test code = Yellow *NA*(08/24/16 1:06 UA Color) AM) [facility] [id number] 06:06:00 Test Item Value Reference Range Interpretation Comments UA Turbidity (test code = Clear (08/24/16 1:06 UA Turbidity) AM) [facility] [id number] 06:06:00 Test Item Value Reference Range Interpretation Comments UA Spec Grav (test code = UA Spec 1.010 1 Grav) [facility] [id number] 06:06:00 Test Item Value Reference Range Interpretation Comments UA Urobilinogen (test code = UA 0.2 0.1-1.0 Urobilinogen) [facility] [id number] 06:06:00 Test Item Value Reference Range Interpretation Comments UA Hyal Cast 0-2 (08/24/16 1:06 See_Comment [Automated message] (test code = UA AM) The system w [employer] Hyal Cast) generated this result transmitted ref erence range: <=2. The reference range was not used to int erpret this result as normal/abnormal . [facility] AND [id number] 06:06:00 Test Item Value Reference Range Interpretation Comments UA Blood (test code = Trace *ABN*(08/24/16 UA Blood) 1:06 AM) [facility] [id number] 06:06:00 Test Item Value Reference Range Interpretation Comments U Amph Scr (test code Negative *NA*(08/24/16 = U Amph Scr) 1:06 AM) [facility] [id number] 06:06:00 Test Item Value Reference Range Interpretation Comments U Cocaine Scr (test Negative *NA*(08/24/16 code = U Cocaine Scr) 1:06 AM) [facility] [id number] 06:06:00 Test Item Value Reference Range Interpretation Comments U Cannab Scr (test Negative *NA*(08/24/16 code = U Cannab Scr) 1:06 AM) [facility] [id number] 06:06:00 Test Item Value Reference Range Interpretation Comments U Opiate Scr (test Negative *NA*(08/24/16 code = U Opiate Scr) 1:06 AM) [facility] [id number] 06:06:00 Test Item Value Reference Range Interpretation Comments U Phencyc Scr (test Negative *NA*(08/24/16 code = U Phencyc Scr) 1:06 AM) [facility] [id number] 06:06:00 Test Item Value Reference Range Interpretation Comments U Methadone Scr (test Negative *NA*(08/24/16 code = U Methadone Scr) 1:06 AM) [facility] [id number] 06:06:00 Test Item Value Reference Range Interpretation Comments U Helen Scr (test code Negative *NA*(08/24/16 = U Helen Scr) 1:06 AM) [facility] [id number] 06:06:00 Test Item Value Reference Range Interpretation Comments U Benzodia Scr (test Positive *ABN*(08/24/16 code = U Benzodia Scr) 1:06 AM) [facility] [id number] 06:06:00 Test Item Value Reference Range Interpretation Comments U Propoxyph Scr (test Negative *NA*(08/24/16 code = U Propoxyph Scr) 1:06 AM) [facility] [id number] 06:06:00 Test Item Value Reference Range Interpretation Comments UDS Note (test code = See Note (08/24/16 1:06 UDS Note) AM) [facility] [id number] 06:06:00 Test Item Value Reference Range Interpretation Comments UA WBC (test code = 1 See_Comment [Automa michelle message] The UA WBC) system which ge nerated this result transmit michelle reference range : <=5. The reference range was not used to interpr et this result as meme l/abnormal. [facility] [id number] 06:06:00 Test Item Value Reference Range Interpretation Comments UA Mucus (test code = UA Mucus) Few /LPF [facility] [id number] 06:06:00 Test Item Value Reference Range Interpretation Comments UA Sq Epi (test code = UA Sq Epi) None Seen [facility] [id number] 06:06:00 Test Item Value Reference Range Interpretation Comments UA Urobilinogen (test code = UA <=1.0 mg/dL 0.1-1.0 Urobilinogen) [facility] [id number] 06:06:00 Test Item Value Reference Range Interpretation Comments UA Color (test code = Light Yellow UA Color) *NA*(08/24/16 1:06 AM) [facility] AND [id number] 06:06:00 Test Item Value Reference Range Interpretation Comments UA Turbidity (test code = Clear (08/24/16 1:06 UA Turbidity) AM) [facility] AND [id number] 06:06:00 Test Item Value Reference Range Interpretation Comments UA Glucose (test code = UA Negative mg/dL Glucose) [facility] AND [id number] 06:06:00 Test Item Value Reference Range Interpretation Comments UA Ketones (test code = UA Negative mg/dL Ketones) [facility] AND [id number] 06:06:00 Test Item Value Reference Range Interpretation Comments UA Protein (test code = UA Protein) 30 mg/dL [facility] AND [id number] 06:06:00 Test Item Value Reference Range Interpretation Comments UA Spec Grav (test code = UA Spec Grav) 1.006 [facility] AND [id number] 06:06:00 Test Item Value Reference Range Interpretation Comments UA pH (test code = UA pH) 7.5 5.0-8.0 [facility] AND [id number] 06:06:00 Test Item Value Reference Range Interpretation Comments UA Bili (test code = Negative *NA*(08/24/16 UA Bili) 1:06 AM) [facility] AND [id number] 06:06:00 Test Item Value Reference Range Interpretation Comments UA Blood (test code = Negative (08/24/16 1:06 UA Blood) AM) [facility] AND [id number] 06:06:00 Test Item Value Reference Range Interpretation Comments UA Nitrite (test code Negative (08/24/16 1:06 = UA Nitrite) AM) [facility] AND [id number] 06:06:00 Test Item Value Reference Range Interpretation Comments UA Leuk Est (test Negative (08/24/16 1:06 code = UA Leuk Est) AM) [facility] AND [id number] 06:06:00 Test Item Value Reference Range Interpretation Comments UA pH (test code = UA pH) 7.0 1 5.0-8.0 [facility] AND [id number] 06:06:00 Test Item Value Reference Range Interpretation Comments UA Protein (test code = UA Protein) 30 mg/dL [facility] AND [id number] 06:06:00 Test Item Value Reference Range Interpretation Comments UA Glucose (test code Negative (08/24/16 1:06 = UA Glucose) AM) [facility] AND [id number] 06:06:00 Test Item Value Reference Range Interpretation Comments UA Ketones (test code Negative *NA*(08/24/16 = UA Ketones) 1:06 AM) [facility] AND [id number] 06:06:00 Test Item Value Reference Range Interpretation Comments UA Bili (test code = Negative *NA*(08/24/16 UA Bili) 1:06 AM) [facility] AND [id number] 06:06:00 Test Item Value Reference Range Interpretation Comments UA Nitrite (test code Negative (08/24/16 1:06 = UA Nitrite) AM) [facility] AND [id number] 06:06:00 Test Item Value Reference Range Interpretation Comments UA Leuk Est (test Negative (08/24/16 1:06 code = UA Leuk Est) AM) [facility] AND [id number] 06:06:00 Test Item Value Reference Range Interpretation Comments UA Sq Epi (test code = None Seen (08/24/16 1:06 UA Sq Epi) AM) [facility] AND [id number] 06:06:00 Test Item Value Reference Range Interpretation Comments UA WBC (test code = UA None Seen (08/24/16 1:06 WBC) AM) [facility] AND [id number] 06:06:00 Test Item Value Reference Range Interpretation Comments UA RBC (test None Seen See_Comment [Automated mes maggie] code = UA RBC) (08/24/16 1:06 AM) The syste m which generated this result transmitted ref erence range: <=2. The reference range was not used to int erpret this result as normal/abnormal . [facility] AND [id number] 06:06:00 Test Item Value Reference Range Interpretation Comments UA Color (test code = Yellow *NA*(08/24/16 1:06 UA Color) AM) [facility] [id number] 06:06:00 Test Item Value Reference Range Interpretation Comments UA Turbidity (test code = Clear (08/24/16 1:06 UA Turbidity) AM) [facility] [id number] 06:06:00 Test Item Value Reference Range Interpretation Comments UA Spec Grav (test code = UA Spec 1.010 1 Grav) [facility] [id number] 06:06:00 Test Item Value Reference Range Interpretation Comments UA Urobilinogen (test code = UA 0.2 0.1-1.0 Urobilinogen) [facility] [id number] 06:06:00 Test Item Value Reference Range Interpretation Comments UA Hyal Cast 0-2 (08/24/16 1:06 See_Comment [Automated message] (test code = UA AM) The system [employer] Hyal Cast) generated this result transmitted ref erence range: <=2. The reference range was not used to int erpret this result as normal/abnormal . [facility] AND [id number] 06:06:00 Test Item Value Reference Range Interpretation Comments UA Blood (test code = Trace *ABN*(08/24/16 UA Blood) 1:06 AM) [facility] [id number] 06:06:00 Test Item Value Reference Range Interpretation Comments U Amph Scr (test code Negative *NA*(08/24/16 = U Amph Scr) 1:06 AM) [facility] [id number] 06:06:00 Test Item Value Reference Range Interpretation Comments U Cocaine Scr (test Negative *NA*(08/24/16 code = U Cocaine Scr) 1:06 AM) [facility] [id number] 06:06:00 Test Item Value Reference Range Interpretation Comments U Cannab Scr (test Negative *NA*(08/24/16 code = U Cannab Scr) 1:06 AM) [facility] [id number] 06:06:00 Test Item Value Reference Range Interpretation Comments U Opiate Scr (test Negative *NA*(08/24/16 code = U Opiate Scr) 1:06 AM) [facility] [id number] 06:06:00 Test Item Value Reference Range Interpretation Comments U Phencyc Scr (test Negative *NA*(08/24/16 code = U Phencyc Scr) 1:06 AM) [facility] [id number] 06:06:00 Test Item Value Reference Range Interpretation Comments U Methadone Scr (test Negative *NA*(08/24/16 code = U Methadone Scr) 1:06 AM) [facility] [id number] 06:06:00 Test Item Value Reference Range Interpretation Comments U Helen Scr (test code Negative *NA*(08/24/16 = U Helen Scr) 1:06 AM) [facility] [id number] 06:06:00 Test Item Value Reference Range Interpretation Comments U Benzodia Scr (test Positive *ABN*(08/24/16 code = U Benzodia Scr) 1:06 AM) [facility] [id number] 06:06:00 Test Item Value Reference Range Interpretation Comments U Propoxyph Scr (test Negative *NA*(08/24/16 code = U Propoxyph Scr) 1:06 AM) [facility] [id number] 06:06:00 Test Item Value Reference Range Interpretation Comments UDS Note (test code = See Note (08/24/16 1:06 UDS Note) AM) [facility] [id number] 06:06:00 Test Item Value Reference Range Interpretation Comments UA WBC (test code = 1 See_Comment [Automa michelle message] The UA WBC) system which ge nerated this result transmit michelle reference range : <=5. The reference range was not used to interpr et this result as meme l/abnormal. [facility] [id number] 06:06:00 Test Item Value Reference Range Interpretation Comments UA Mucus (test code = UA Mucus) Few /LPF [facility] [id number] 06:06:00 Test Item Value Reference Range Interpretation Comments UA Sq Epi (test code = UA Sq Epi) None Seen [facility] [id number] 06:06:00 Test Item Value Reference Range Interpretation Comments UA Urobilinogen (test code = UA <=1.0 mg/dL 0.1-1.0 Urobilinogen) [facility] [id number] 06:06:00 Test Item Value Reference Range Interpretation Comments UA Color (test code = Light Yellow UA Color) *NA*(08/24/16 1:06 AM) [facility] AND [id number] 06:06:00 Test Item Value Reference Range Interpretation Comments UA Turbidity (test code = Clear (08/24/16 1:06 UA Turbidity) AM) [facility] AND [id number] 06:06:00 Test Item Value Reference Range Interpretation Comments UA Glucose (test code = UA Negative mg/dL Glucose) [facility] AND [id number] 06:06:00 Test Item Value Reference Range Interpretation Comments UA Ketones (test code = UA Negative mg/dL Ketones) [facility] AND [id number] 06:06:00 Test Item Value Reference Range Interpretation Comments UA Protein (test code = UA Protein) 30 mg/dL [facility] AND [id number] 06:06:00 Test Item Value Reference Range Interpretation Comments UA Spec Grav (test code = UA Spec Grav) 1.006 [facility] AND [id number] 06:06:00 Test Item Value Reference Range Interpretation Comments UA pH (test code = UA pH) 7.5 5.0-8.0 [facility] AND [id number] 06:06:00 Test Item Value Reference Range Interpretation Comments UA Bili (test code = Negative *NA*(08/24/16 UA Bili) 1:06 AM) [facility] AND [id number] 06:06:00 Test Item Value Reference Range Interpretation Comments UA Blood (test code = Negative (08/24/16 1:06 UA Blood) AM) [facility] AND [id number] 06:06:00 Test Item Value Reference Range Interpretation Comments UA Nitrite (test code Negative (08/24/16 1:06 = UA Nitrite) AM) [facility] AND [id number] 06:06:00 Test Item Value Reference Range Interpretation Comments UA Leuk Est (test Negative (08/24/16 1:06 code = UA Leuk Est) AM) [facility] AND [id number] 06:06:00 Test Item Value Reference Range Interpretation Comments UA pH (test code = UA pH) 7.0 1 5.0-8.0 [facility] AND [id number] 06:06:00 Test Item Value Reference Range Interpretation Comments UA Protein (test code = UA Protein) 30 mg/dL [facility] AND [id number] 06:06:00 Test Item Value Reference Range Interpretation Comments UA Glucose (test code Negative (08/24/16 1:06 = UA Glucose) AM) [facility] AND [id number] 06:06:00 Test Item Value Reference Range Interpretation Comments UA Ketones (test code Negative *NA*(08/24/16 = UA Ketones) 1:06 AM) [facility] AND [id number] 06:06:00 Test Item Value Reference Range Interpretation Comments UA Bili (test code = Negative *NA*(08/24/16 UA Bili) 1:06 AM) [facility] AND [id number] 06:06:00 Test Item Value Reference Range Interpretation Comments UA Nitrite (test code Negative (08/24/16 1:06 = UA Nitrite) AM) [facility] AND [id number] 06:06:00 Test Item Value Reference Range Interpretation Comments UA Leuk Est (test Negative (08/24/16 1:06 code = UA Leuk Est) AM) [facility] AND [id number] 06:06:00 Test Item Value Reference Range Interpretation Comments UA Sq Epi (test code = None Seen (08/24/16 1:06 UA Sq Epi) AM) [facility] AND [id number] 06:06:00 Test Item Value Reference Range Interpretation Comments UA WBC (test code = UA None Seen (08/24/16 1:06 WBC) AM) [facility] AND [id number] 06:06:00 Test Item Value Reference Range Interpretation Comments UA RBC (test None Seen See_Comment [Automated mes maggie] code = UA RBC) (08/24/16 1:06 AM) [employer] which generated this result transmitted ref erence range: <=2. The reference range was not used to int erpret this result as normal/abnormal . [facility] AND [id number] 06:06:00 Test Item Value Reference Range Interpretation Comments UA Color (test code = Yellow *NA*(08/24/16 1:06 UA Color) AM) [facility] [id number] 06:06:00 Test Item Value Reference Range Interpretation Comments UA Turbidity (test code = Clear (08/24/16 1:06 UA Turbidity) AM) [facility] [id number] 06:06:00 Test Item Value Reference Range Interpretation Comments UA Spec Grav (test code = UA Spec 1.010 1 Grav) [facility] [id number] 06:06:00 Test Item Value Reference Range Interpretation Comments UA Urobilinogen (test code = UA 0.2 0.1-1.0 Urobilinogen) [facility] [id number] 06:06:00 Test Item Value Reference Range Interpretation Comments UA Hyal Cast 0-2 (08/24/16 1:06 See_Comment [Automated message] (test code = UA AM) The system [employer] Hyal Cast) generated this result transmitted ref erence range: <=2. The reference range was not used to int erpret this result as normal/abnormal . [facility] [id number] 06:06:00 Test Item Value Reference Range Interpretation Comments UA Blood (test code = Trace *ABN*(08/24/16 UA Blood) 1:06 AM) [facility] [id number] 06:06:00 Test Item Value Reference Range Interpretation Comments U Amph Scr (test code Negative *NA*(08/24/16 = U Amph Scr) 1:06 AM) [facility] [id number] 06:06:00 Test Item Value Reference Range Interpretation Comments U Cocaine Scr (test Negative *NA*(08/24/16 code = U Cocaine Scr) 1:06 AM) [facility] [id number] 06:06:00 Test Item Value Reference Range Interpretation Comments U Cannab Scr (test Negative *NA*(08/24/16 code = U Cannab Scr) 1:06 AM) [facility] [id number] 06:06:00 Test Item Value Reference Range Interpretation Comments U Opiate Scr (test Negative *NA*(08/24/16 code = U Opiate Scr) 1:06 AM) [facility] [id number] 06:06:00 Test Item Value Reference Range Interpretation Comments U Phencyc Scr (test Negative *NA*(08/24/16 code = U Phencyc Scr) 1:06 AM) [facility] [id number] 06:06:00 Test Item Value Reference Range Interpretation Comments U Methadone Scr (test Negative *NA*(08/24/16 code = U Methadone Scr) 1:06 AM) [facility] [id number] 06:06:00 Test Item Value Reference Range Interpretation Comments U Helen Scr (test code Negative *NA*(08/24/16 = U Helen Scr) 1:06 AM) [facility] [id number] 06:06:00 Test Item Value Reference Range Interpretation Comments U Benzodia Scr (test Positive *ABN*(08/24/16 code = U Benzodia Scr) 1:06 AM) [facility] [id number] 06:06:00 Test Item Value Reference Range Interpretation Comments U Propoxyph Scr (test Negative *NA*(08/24/16 code = U Propoxyph Scr) 1:06 AM) [facility] [id number] 06:06:00 Test Item Value Reference Range Interpretation Comments UDS Note (test code = See Note (08/24/16 1:06 UDS Note) AM) [facility] [id number] 06:06:00 Test Item Value Reference Range Interpretation Comments UA WBC (test code = 1 See_Comment [Automa michelle message] The UA WBC) system which ge nerated this result transmit michelle reference range : <=5. The reference range was not used to interpr et this result as meme l/abnormal. [facility] [id number] 06:06:00 Test Item Value Reference Range Interpretation Comments UA Mucus (test code = UA Mucus) Few /LPF [facility] [id number] 06:06:00 Test Item Value Reference Range Interpretation Comments UA Sq Epi (test code = UA Sq Epi) None Seen [facility] [id number] 06:06:00 Test Item Value Reference Range Interpretation Comments UA Urobilinogen (test code = UA <=1.0 mg/dL 0.1-1.0 Urobilinogen) [facility] AND [id number] 06:06:00 Test Item Value Reference Range Interpretation Comments UA Color (test code = Light Yellow UA Color) *NA*(08/24/16 1:06 AM) [facility] AND [id number] 06:06:00 Test Item Value Reference Range Interpretation Comments UA Turbidity (test code = Clear (08/24/16 1:06 UA Turbidity) AM) [facility] AND [id number] 06:06:00 Test Item Value Reference Range Interpretation Comments UA Glucose (test code = UA Negative mg/dL Glucose) [facility] AND [id number] 06:06:00 Test Item Value Reference Range Interpretation Comments UA Ketones (test code = UA Negative mg/dL Ketones) [facility] AND [id number] 06:06:00 Test Item Value Reference Range Interpretation Comments UA Protein (test code = UA Protein) 30 mg/dL [facility] AND [id number] 06:06:00 Test Item Value Reference Range Interpretation Comments UA Spec Grav (test code = UA Spec Grav) 1.006 [facility] AND [id number] 06:06:00 Test Item Value Reference Range Interpretation Comments UA pH (test code = UA pH) 7.5 5.0-8.0 [facility] AND [id number] 06:06:00 Test Item Value Reference Range Interpretation Comments UA Bili (test code = Negative *NA*(08/24/16 UA Bili) 1:06 AM) [facility] AND [id number] 06:06:00 Test Item Value Reference Range Interpretation Comments UA Blood (test code = Negative (08/24/16 1:06 UA Blood) AM) [facility] AND [id number] 06:06:00 Test Item Value Reference Range Interpretation Comments UA Nitrite (test code Negative (08/24/16 1:06 = UA Nitrite) AM) [facility] AND [id number] 06:06:00 Test Item Value Reference Range Interpretation Comments UA Leuk Est (test Negative (08/24/16 1:06 code = UA Leuk Est) AM) [facility] AND [id number] 06:06:00 Test Item Value Reference Range Interpretation Comments UA pH (test code = UA pH) 7.0 1 5.0-8.0 [facility] AND [id number] 06:06:00 Test Item Value Reference Range Interpretation Comments UA Protein (test code = UA Protein) 30 mg/dL [facility] AND [id number] 06:06:00 Test Item Value Reference Range Interpretation Comments UA Glucose (test code Negative (08/24/16 1:06 = UA Glucose) AM) [facility] AND [id number] 06:06:00 Test Item Value Reference Range Interpretation Comments UA Ketones (test code Negative *NA*(08/24/16 = UA Ketones) 1:06 AM) [facility] AND [id number] 06:06:00 Test Item Value Reference Range Interpretation Comments UA Bili (test code = Negative *NA*(08/24/16 UA Bili) 1:06 AM) [facility] AND [id number] 06:06:00 Test Item Value Reference Range Interpretation Comments UA Nitrite (test code Negative (08/24/16 1:06 = UA Nitrite) AM) [facility] AND [id number] 06:06:00 Test Item Value Reference Range Interpretation Comments UA Leuk Est (test Negative (08/24/16 1:06 code = UA Leuk Est) AM) [facility] AND [id number] 06:06:00 Test Item Value Reference Range Interpretation Comments UA Sq Epi (test code = None Seen (08/24/16 1:06 UA Sq Epi) AM) [facility] AND [id number] 06:06:00 Test Item Value Reference Range Interpretation Comments UA WBC (test code = UA None Seen (08/24/16 1:06 WBC) AM) [facility] AND [id number] 06:06:00 Test Item Value Reference Range Interpretation Comments UA RBC (test None Seen See_Comment [Automated mes maggie] code = UA RBC) (08/24/16 1:06 AM) [employer] which generated this result transmitted ref erence range: <=2. The reference range was not used to int erpret this result as normal/abnormal . [facility] AND [id number] 06:06:00 Test Item Value Reference Range Interpretation Comments UA Color (test code = Yellow *NA*(08/24/16 1:06 UA Color) AM) [facility] [id number] 06:06:00 Test Item Value Reference Range Interpretation Comments UA Turbidity (test code = Clear (08/24/16 1:06 UA Turbidity) AM) [facility] [id number] 06:06:00 Test Item Value Reference Range Interpretation Comments UA Spec Grav (test code = UA Spec 1.010 1 Grav) [facility] [id number] 06:06:00 Test Item Value Reference Range Interpretation Comments UA Urobilinogen (test code = UA 0.2 0.1-1.0 Urobilinogen) [facility] [id number] 06:06:00 Test Item Value Reference Range Interpretation Comments UA Hyal Cast 0-2 (08/24/16 1:06 See_Comment [Automated message] (test code = UA AM) The system w [employer] Hyal Cast) generated this result transmitted ref erence range: <=2. The reference range was not used to int erpret this result as normal/abnormal . [facility] [id number] 06:06:00 Test Item Value Reference Range Interpretation Comments UA Blood (test code = Trace *ABN*(08/24/16 UA Blood) 1:06 AM) [facility] [id number] 06:06:00 Test Item Value Reference Range Interpretation Comments U Amph Scr (test code Negative *NA*(08/24/16 = U Amph Scr) 1:06 AM) [facility] [id number] 06:06:00 Test Item Value Reference Range Interpretation Comments U Cocaine Scr (test Negative *NA*(08/24/16 code = U Cocaine Scr) 1:06 AM) [facility] [id number] 06:06:00 Test Item Value Reference Range Interpretation Comments U Cannab Scr (test Negative *NA*(08/24/16 code = U Cannab Scr) 1:06 AM) [facility] [id number] 06:06:00 Test Item Value Reference Range Interpretation Comments U Opiate Scr (test Negative *NA*(08/24/16 code = U Opiate Scr) 1:06 AM) [facility] [id number] 06:06:00 Test Item Value Reference Range Interpretation Comments U Phencyc Scr (test Negative *NA*(08/24/16 code = U Phencyc Scr) 1:06 AM) [facility] [id number] 06:06:00 Test Item Value Reference Range Interpretation Comments U Methadone Scr (test Negative *NA*(08/24/16 code = U Methadone Scr) 1:06 AM) [facility] [id number] 06:06:00 Test Item Value Reference Range Interpretation Comments U Helen Scr (test code Negative *NA*(08/24/16 = U Helen Scr) 1:06 AM) [facility] [id number] 06:06:00 Test Item Value Reference Range Interpretation Comments U Benzodia Scr (test Positive *ABN*(08/24/16 code = U Benzodia Scr) 1:06 AM) [facility] [id number] 06:06:00 Test Item Value Reference Range Interpretation Comments U Propoxyph Scr (test Negative *NA*(08/24/16 code = U Propoxyph Scr) 1:06 AM) [facility] [id number] 06:06:00 Test Item Value Reference Range Interpretation Comments UDS Note (test code = See Note (08/24/16 1:06 UDS Note) AM) [facility] [id number] 06:06:00 Test Item Value Reference Range Interpretation Comments UA WBC (test code = 1 See_Comment [Automa michelle message] The UA WBC) system which ge nerated this result transmit michelle reference range : <=5. The reference range was not used to interpr et this result as meme l/abnormal. [facility] [id number] 06:06:00 Test Item Value Reference Range Interpretation Comments UA Mucus (test code = UA Mucus) Few /LPF [facility] [id number] 06:06:00 Test Item Value Reference Range Interpretation Comments UA Sq Epi (test code = UA Sq Epi) None Seen [facility] [id number] 06:06:00 Test Item Value Reference Range Interpretation Comments UA Urobilinogen (test code = UA <=1.0 mg/dL 0.1-1.0 Urobilinogen) [facility] AND [id number] 06:06:00 Test Item Value Reference Range Interpretation Comments UA Color (test code = Light Yellow UA Color) *NA*(08/24/16 1:06 AM) [facility] AND [id number] 06:06:00 Test Item Value Reference Range Interpretation Comments UA Turbidity (test code = Clear (08/24/16 1:06 UA Turbidity) AM) [facility] AND [id number] 06:06:00 Test Item Value Reference Range Interpretation Comments UA Glucose (test code = UA Negative mg/dL Glucose) [facility] AND [id number] 06:06:00 Test Item Value Reference Range Interpretation Comments UA Ketones (test code = UA Negative mg/dL Ketones) [facility] AND [id number] 06:06:00 Test Item Value Reference Range Interpretation Comments UA Protein (test code = UA Protein) 30 mg/dL [facility] AND [id number] 06:06:00 Test Item Value Reference Range Interpretation Comments UA Spec Grav (test code = UA Spec Grav) 1.006 [facility] AND [id number] 06:06:00 Test Item Value Reference Range Interpretation Comments UA pH (test code = UA pH) 7.5 5.0-8.0 [facility] AND [id number] 06:06:00 Test Item Value Reference Range Interpretation Comments UA Bili (test code = Negative *NA*(08/24/16 UA Bili) 1:06 AM) [facility] AND [id number] 06:06:00 Test Item Value Reference Range Interpretation Comments UA Blood (test code = Negative (08/24/16 1:06 UA Blood) AM) [facility] AND [id number] 06:06:00 Test Item Value Reference Range Interpretation Comments UA Nitrite (test code Negative (08/24/16 1:06 = UA Nitrite) AM) [facility] AND [id number] 06:06:00 Test Item Value Reference Range Interpretation Comments UA Leuk Est (test Negative (08/24/16 1:06 code = UA Leuk Est) AM) [facility] AND [id number] 06:06:00 Test Item Value Reference Range Interpretation Comments UA pH (test code = UA pH) 7.0 1 5.0-8.0 [facility] AND [id number] 06:06:00 Test Item Value Reference Range Interpretation Comments UA Protein (test code = UA Protein) 30 mg/dL [facility] AND [id number] 06:06:00 Test Item Value Reference Range Interpretation Comments UA Glucose (test code Negative (08/24/16 1:06 = UA Glucose) AM) [facility] AND [id number] 06:06:00 Test Item Value Reference Range Interpretation Comments UA Ketones (test code Negative *NA*(08/24/16 = UA Ketones) 1:06 AM) [facility] AND [id number] 06:06:00 Test Item Value Reference Range Interpretation Comments UA Bili (test code = Negative *NA*(08/24/16 UA Bili) 1:06 AM) [facility] AND [id number] 06:06:00 Test Item Value Reference Range Interpretation Comments UA Nitrite (test code Negative (08/24/16 1:06 = UA Nitrite) AM) [facility] AND [id number] 06:06:00 Test Item Value Reference Range Interpretation Comments UA Leuk Est (test Negative (08/24/16 1:06 code = UA Leuk Est) AM) [facility] AND [id number] 06:06:00 Test Item Value Reference Range Interpretation Comments UA Sq Epi (test code = None Seen (08/24/16 1:06 UA Sq Epi) AM) [facility] AND [id number] 06:06:00 Test Item Value Reference Range Interpretation Comments UA WBC (test code = UA None Seen (08/24/16 1:06 WBC) AM) [facility] AND [id number] 06:06:00 Test Item Value Reference Range Interpretation Comments UA RBC (test None Seen See_Comment [Automated mes maggie] code = UA RBC) (08/24/16 1:06 AM) The syste m which generated this result transmitted ref erence range: <=2. The reference range was not used to int erpret this result as normal/abnormal . [facility] AND [id number] 06:06:00 Test Item Value Reference Range Interpretation Comments UA Color (test code = Yellow *NA*(08/24/16 1:06 UA Color) AM) [facility] AND [id number] 06:06:00 Test Item Value Reference Range Interpretation Comments UA Turbidity (test code = Clear (08/24/16 1:06 UA Turbidity) AM) [facility] AND [id number] 06:06:00 Test Item Value Reference Range Interpretation Comments UA Spec Grav (test code = UA Spec 1.010 1 Grav) [facility] AND [id number] 06:06:00 Test Item Value Reference Range Interpretation Comments UA Urobilinogen (test code = UA 0.2 0.1-1.0 Urobilinogen) [facility] AND [id number] 06:06:00 Test Item Value Reference Range Interpretation Comments UA Hyal Cast 0-2 (08/24/16 1:06 See_Comment [Automated message] (test code = UA AM) The system w [employer] Hyal Cast) generated this result transmitted ref erence range: <=2. The reference range was not used to int erpret this result as normal/abnormal . [facility] AND [id number] 06:06:00 Test Item Value Reference Range Interpretation Comments UA Blood (test code = Trace *ABN*(08/24/16 UA Blood) 1:06 AM) [id number] 04:15:00 Test Item Value Reference Range Interpretation Comments Phenytoin Total (test code = Phenytoin no gt 10.0-20.0 Total) [facility] [id number] 04:15:00 Test Item Value Reference Range Interpretation Comments Carbamaz Lvl (test code = Carbamaz Lvl) no gt 4.0-12.0 [id number] 04:15:00 Test Item Value Reference Range Interpretation Comments Valproic Acid Lvl (test code = Valproic no gt 50-100 Acid Lvl) [facility] [id number] 04:15:00 Test Item Value Reference Range Interpretation Comments Phenytoin Total (test code = Phenytoin no gt 10.0-20.0 Total) [place] [id number] 04:15:00 Test Item Value Reference Range Interpretation Comments Carbamaz Lvl (test code = Carbamaz Lvl) no gt 4.0-12.0 [place] [id number] 04:15:00 Test Item Value Reference Range Interpretation Comments Valproic Acid Lvl (test code = Valproic no gt 50-100 Acid Lvl) [place] [id number] 04:15:00 Test Item Value Reference Range Interpretation Comments Phenytoin Total (test code = Phenytoin no gt 10.0-20.0 Total) [place] [id number] 04:15:00 Test Item Value Reference Range Interpretation Comments Carbamaz Lvl (test code = Carbamaz Lvl) no gt 4.0-12.0 [place] [id number] 04:15:00 Test Item Value Reference Range Interpretation Comments Valproic Acid Lvl (test code = Valproic no gt 50-100 Acid Lvl) [place] [id number] 04:15:00 Test Item Value Reference Range Interpretation Comments Phenytoin Total (test code = Phenytoin no gt 10.0-20.0 Total) [place] [id number] 04:15:00 Test Item Value Reference Range Interpretation Comments Carbamaz Lvl (test code = Carbamaz Lvl) no gt 4.0-12.0 [place] [id number] 04:15:00 Test Item Value Reference Range Interpretation Comments Valproic Acid Lvl (test code = Valproic no gt 50-100 Acid Lvl) [place] [id number] 04:15:00 Test Item Value Reference Range Interpretation Comments Phenytoin Total (test code = Phenytoin no gt 10.0-20.0 Total) [place] [id number] 04:15:00 Test Item Value Reference Range Interpretation Comments Carbamaz Lvl (test code = Carbamaz Lvl) no gt 4.0-12.0 [place] [id number] 04:15:00 Test Item Value Reference Range Interpretation Comments Valproic Acid Lvl (test code = Valproic no gt 50-100 Acid Lvl) [facility]IipvyrvVBOQOWHWIH4494-23-50 04:15:00 Test Item Value Reference Range Interpretation Comments Phenytoin Total (test code = Phenytoin no gt 10.0-20.0 Total) [facility]kn[facility]buREMULQJZFX9484-[facility] 04:15:00 Test Item Value Reference Range Interpretation Comments Carbamaz Lvl (test code = Carbamaz Lvl) no gt 4.0-12.0 [facility]andZlegxzcXGQKSJMEIT1864-16-30 04:15:00 Test Item Value Reference Range Interpretation Comments Valproic Acid Lvl (test code = Valproic no gt 50-100 Acid Lvl) [facility]UnsoxjcJAQADYDARWLG5459-64-44 08:26:00 Test Item Value Reference Range Interpretation Comments Potassium Lvl (test code = Potassium 3.3 3.5-5.1 Lvl) [facility]GtkqyuwJKYQMONTDY8264-57-65 08:26:00 Test Item Value Reference Range Interpretation Comments Segs (test code = Segs) 60.9 45.0-75.0 [facility]anoHcfbwgmURCCGBNEMA6945-38-84 08:26:00 Test Item Value Reference Range Interpretation Comments Basophils (test code = 0.9 See_Comment [Aut omated message] The Basophils) system which ge nerated this result tra nsmitted reference range : <=1.0. The reference r yadira was not used to int erpret this result as normal/abnormal . [facility]anoXbqortdQUTZMIEGCC8604-79-22 08:26:00 Test Item Value Reference Range Interpretation Comments Eosinophils (test code = 2.9 See_Comment [A utomated message] The Eosinophils) system which ge nerated this result tra nsmitted reference range : <=4.0. The reference r yadira was not used to int erpret this result as normal/abnormal . [facility]anoKthipxuUKDDBLTXTJ0131-61-51 08:26:00 Test Item Value Reference Range Interpretation Comments Lymphocytes (test code = Lymphocytes) 24.4 20.0-40.0 [facility]anoRuoowcwAEHQFRZIVO5219-92-10 08:26:00 Test Item Value Reference Range Interpretation Comments Monocytes (test code = Monocytes) 10.9 2.0-12.0 [facility]anoIxnuophBHCHUFRCCB4259-27-97 08:26:00 Test Item Value Reference Range Interpretation Comments Basophils # (test code 0.1 See_Comment [Aut omated message] The = Basophils #) system which generated this result tra nsmitted reference range : <=0.2. The reference r yadira was not used to int erpret this result as normal/abnormal . [facility]anoWfwbxwsSJPZHEXUAX1723-31-18 08:26:00 Test Item Value Reference Range Interpretation Comments Eosinophils # (test code 0.4 See_Comment [A utomated message] The = Eosinophils #) system whic h generated this result tra nsmitted reference range : <=0.5. The reference r yadira was not used to int erpret this result as normal/abnormal . [facility]anoRlbhcilGPKJWBRJID9707-15-19 08:26:00 Test Item Value Reference Range Interpretation Comments Lymphocytes # (test code = Lymphocytes 3.3 1.0-5.5 #) [facility]anoEpgqjgjOLQFVFCDGY0850-80-21 08:26:00 Test Item Value Reference Range Interpretation Comments Monocytes # (test code 1.5 See_Comment [Aut omated message] The = Monocytes #) system which generated this result tra nsmitted reference range : <=0.8. The reference r yadira was not used to int erpret this result as normal/abnormal . [facility]anoOarlrywDRFGKHFDXO5437-29-66 08:26:00 Test Item Value Reference Range Interpretation Comments Segs-Bands # (test code = Segs-Bands #) 8.2 1.5-8.1 [facility]anoHqsmjqpDJSLZQXBQZ2926-13-35 08:26:00 Test Item Value Reference Range Interpretation Comments Platelet (test code = Platelet) 259 133-450 [facility]anoZinwngsTEZAHGXBWG2170-31-99 08:26:00 Test Item Value Reference Range Interpretation Comments MPV (test code = MPV) 8.2 7.4-10.4 [facility]anoEdqpmrnBTXNIZOACG0654-96-35 08:26:00 Test Item Value Reference Range Interpretation Comments Hct (test code = Hct) 41.1 42.0-54.0 [facility]anoRjwjjhrTCFQBRJLUT7398-80-04 08:26:00 Test Item Value Reference Range Interpretation Comments MCHC (test code = MCHC) 32.5 32.0-36.0 [facility]anoLkvvrczHBSVOXJBIU8220-23-47 08:26:00 Test Item Value Reference Range Interpretation Comments Hgb (test code = Hgb) 13.3 14.0-18.0 [facility]anoKunvgnvSQKXFLYJMJ9636-37-42 08:26:00 Test Item Value Reference Range Interpretation Comments RDW (test code = RDW) 13.7 11.5-14.5 [facility]anoYrrlehfKBANXBJVLL0203-10-60 08:26:00 Test Item Value Reference Range Interpretation Comments MCH (test code = MCH) 30.0 pg 27.0-31.0 [facility]anoQlajutvKYVAWUDCZS9331-66-68 08:26:00 Test Item Value Reference Range Interpretation Comments MCV (test code = MCV) 92.3 80.0-94.0 [facility]anoVsarnfcODRTVXCWKS0868-03-14 08:26:00 Test Item Value Reference Range Interpretation Comments WBC (test code = WBC) 13.5 3.7-10.4 [facility]anoVjafgstQHCZUQCOPU1063-86-77 08:26:00 Test Item Value Reference Range Interpretation Comments RBC (test code = RBC) 4.45 4.70-6.10 [facility]burgKvoxyyySCYCTDOVABEX3299-58-57 08:26:00 Test Item Value Reference Range Interpretation Comments Potassium Lvl (test code = Potassium 3.3 3.5-5.1 Lvl) [facility]anoZbezjxfFVTOGFOMGC6094-98-66 08:26:00 Test Item Value Reference Range Interpretation Comments Segs (test code = Segs) 60.9 45.0-75.0 [facility]anoEwhltxuFNROQSUXRT0061-48-41 08:26:00 Test Item Value Reference Range Interpretation Comments Basophils (test code = 0.9 See_Comment [Aut omated message] The Basophils) system which ge nerated this result tra nsmitted reference range : <=1.0. The reference r yadira was not used to int erpret this result as normal/abnormal . [facility]anoVstjlsmQJIERYEKVC2961-15-38 08:26:00 Test Item Value Reference Range Interpretation Comments Eosinophils (test code = 2.9 See_Comment [A utomated message] The Eosinophils) system which ge nerated this result tra nsmitted reference range : <=4.0. The reference r yadira was not used to int erpret this result as normal/abnormal . [facility]anoVdmsepqZDYSDBUMEG0367-86-00 08:26:00 Test Item Value Reference Range Interpretation Comments Lymphocytes (test code = Lymphocytes) 24.4 20.0-40.0 [facility]anoXatqqziIQYBFWLWSW4737-92-49 08:26:00 Test Item Value Reference Range Interpretation Comments Monocytes (test code = Monocytes) 10.9 2.0-12.0 [facility]anoQmtjnogIAKOEZYEFV3152-62-33 08:26:00 Test Item Value Reference Range Interpretation Comments Basophils # (test code 0.1 See_Comment [Aut omated message] The = Basophils #) system which generated this result tra nsmitted reference range : <=0.2. The reference r yadira was not used to int erpret this result as normal/abnormal . [facility]anoHlysxkpSUIJPELZNA4757-71-19 08:26:00 Test Item Value Reference Range Interpretation Comments Eosinophils # (test code 0.4 See_Comment [A utomated message] The = Eosinophils #) system whic h generated this result tra nsmitted reference range : <=0.5. The reference r yadira was not used to int erpret this result as normal/abnormal . [facility]anoIxckevlTMJODKGDVU4445-12-66 08:26:00 Test Item Value Reference Range Interpretation Comments Lymphocytes # (test code = Lymphocytes 3.3 1.0-5.5 #) [facility]anoUslgynbEROOZCOIOZ6790-54-27 08:26:00 Test Item Value Reference Range Interpretation Comments Monocytes # (test code 1.5 See_Comment [Aut omated message] The = Monocytes #) system which generated this result tra nsmitted reference range : <=0.8. The reference r yadira was not used to int erpret this result as normal/abnormal . [facility]anoZdtojwcPLBTZCDIHO3139-96-42 08:26:00 Test Item Value Reference Range Interpretation Comments Segs-Bands # (test code = Segs-Bands #) 8.2 1.5-8.1 [facility]anoDssblnkXODZSSKLJW2617-32-13 08:26:00 Test Item Value Reference Range Interpretation Comments Platelet (test code = Platelet) 259 133-450 [facility]anoPrupthdDDBOTMEJQS9825-22-08 08:26:00 Test Item Value Reference Range Interpretation Comments MPV (test code = MPV) 8.2 7.4-10.4 [facility]anoUbovlwqJGPFJBZDKN7544-83-00 08:26:00 Test Item Value Reference Range Interpretation Comments Hct (test code = Hct) 41.1 42.0-54.0 [facility]anoJgjndbiGHNIIIRVVJ6507-14-03 08:26:00 Test Item Value Reference Range Interpretation Comments MCHC (test code = MCHC) 32.5 32.0-36.0 [facility]anoNddtdgxKJXDZRLULT7377-92-18 08:26:00 Test Item Value Reference Range Interpretation Comments Hgb (test code = Hgb) 13.3 14.0-18.0 [facility]anoVrostrkCQNIQDVGGK4551-88-45 08:26:00 Test Item Value Reference Range Interpretation Comments RDW (test code = RDW) 13.7 11.5-14.5 [facility]anoGzuzdnmLGDJUQSLAQ1197-25-64 08:26:00 Test Item Value Reference Range Interpretation Comments MCH (test code = MCH) 30.0 pg 27.0-31.0 [facility]anoYkiuyrsIZQUQPLLEA7003-04-62 08:26:00 Test Item Value Reference Range Interpretation Comments MCV (test code = MCV) 92.3 80.0-94.0 [facility]anoMsfxwqsZZLQLUSJWK5700-17-95 08:26:00 Test Item Value Reference Range Interpretation Comments WBC (test code = WBC) 13.5 3.7-10.4 [facility]anoWegqnsvRTKJKJTHNL0812-61-44 08:26:00 Test Item Value Reference Range Interpretation Comments RBC (test code = RBC) 4.45 4.70-6.10 [facility]burgQpgwxfbFXIZIIKFDLEO4086-38-69 08:26:00 Test Item Value Reference Range Interpretation Comments Potassium Lvl (test code = Potassium 3.3 3.5-5.1 Lvl) [facility]anoZaghxmwJQTJPQGFER7179-94-06 08:26:00 Test Item Value Reference Range Interpretation Comments Segs (test code = Segs) 60.9 45.0-75.0 [facility]anoAzctguyYUERTMJGJG0284-67-88 08:26:00 Test Item Value Reference Range Interpretation Comments Basophils (test code = 0.9 See_Comment [Aut omated message] The Basophils) system which ge nerated this result tra nsmitted reference range : <=1.0. The reference r yadira was not used to int erpret this result as normal/abnormal . [facility]anoXgsgtpsFIDNNIVIET2605-84-46 08:26:00 Test Item Value Reference Range Interpretation Comments Eosinophils (test code = 2.9 See_Comment [A utomated message] The Eosinophils) system which ge nerated this result tra nsmitted reference range : <=4.0. The reference r yadira was not used to int erpret this result as normal/abnormal . [facility]anoNujbrnjLDTBKUPASE8341-39-63 08:26:00 Test Item Value Reference Range Interpretation Comments Lymphocytes (test code = Lymphocytes) 24.4 20.0-40.0 [facility]anoNpgtvmkNXTVPLCETA0525-53-69 08:26:00 Test Item Value Reference Range Interpretation Comments Monocytes (test code = Monocytes) 10.9 2.0-12.0 [facility]anoNcpzxsfHWLUJOJAND6216-40-77 08:26:00 Test Item Value Reference Range Interpretation Comments Basophils # (test code 0.1 See_Comment [Aut omated message] The = Basophils #) system which generated this result tra nsmitted reference range : <=0.2. The reference r yadira was not used to int erpret this result as normal/abnormal . [facility]anoGnjfifiCLVJRELMBB3419-24-30 08:26:00 Test Item Value Reference Range Interpretation Comments Eosinophils # (test code 0.4 See_Comment [A utomated message] The = Eosinophils #) system whic h generated this result tra nsmitted reference range : <=0.5. The reference r yadira was not used to int erpret this result as normal/abnormal . [facility]anoChzivtqDUNNKMCCFZ8637-60-11 08:26:00 Test Item Value Reference Range Interpretation Comments Lymphocytes # (test code = Lymphocytes 3.3 1.0-5.5 #) [facility]anoNosznsuZZOKXUHFOJ2147-54-59 08:26:00 Test Item Value Reference Range Interpretation Comments Monocytes # (test code 1.5 See_Comment [Aut omated message] The = Monocytes #) system which generated this result tra nsmitted reference range : <=0.8. The reference r yadira was not used to int erpret this result as normal/abnormal . [facility]anoUzuyjgfEUIKHQQCYD4802-70-67 08:26:00 Test Item Value Reference Range Interpretation Comments Segs-Bands # (test code = Segs-Bands #) 8.2 1.5-8.1 [facility]anoUmhshmqFSZXGWGVQU8110-35-18 08:26:00 Test Item Value Reference Range Interpretation Comments Platelet (test code = Platelet) 259 133-450 [facility]anoGakzwumTRFWTVSYIG9176-36-85 08:26:00 Test Item Value Reference Range Interpretation Comments MPV (test code = MPV) 8.2 7.4-10.4 [facility]anoSxqjbwyBJCSZNSGSB3291-05-96 08:26:00 Test Item Value Reference Range Interpretation Comments Hct (test code = Hct) 41.1 42.0-54.0 [facility]anoAisakhbMVWPYHWADY2551-20-29 08:26:00 Test Item Value Reference Range Interpretation Comments MCHC (test code = MCHC) 32.5 32.0-36.0 [facility]anoLwlzjhwQETDEIUURE7628-44-11 08:26:00 Test Item Value Reference Range Interpretation Comments Hgb (test code = Hgb) 13.3 14.0-18.0 [facility]anoKowaaxeUBFHFLYAUV5260-98-68 08:26:00 Test Item Value Reference Range Interpretation Comments RDW (test code = RDW) 13.7 11.5-14.5 [facility]anoJkduaqaEHSMFMIWGY5383-31-98 08:26:00 Test Item Value Reference Range Interpretation Comments MCH (test code = MCH) 30.0 pg 27.0-31.0 [facility]anoQrntjpvFPMUONRLRT5159-32-22 08:26:00 Test Item Value Reference Range Interpretation Comments MCV (test code = MCV) 92.3 80.0-94.0 [facility]anoZnnatvaAVKONNEIXX5256-34-25 08:26:00 Test Item Value Reference Range Interpretation Comments WBC (test code = WBC) 13.5 3.7-10.4 [facility]anoGrbkyxeGNCZVGYVXT8322-53-19 08:26:00 Test Item Value Reference Range Interpretation Comments RBC (test code = RBC) 4.45 4.70-6.10 [facility]burgLzeoiozZXOUPZZQZIOW5657-97-28 08:26:00 Test Item Value Reference Range Interpretation Comments Potassium Lvl (test code = Potassium 3.3 3.5-5.1 Lvl) [facility]anoKqwltpvQSBCSICQCM1901-90-20 08:26:00 Test Item Value Reference Range Interpretation Comments Segs (test code = Segs) 60.9 45.0-75.0 [facility]anoGqmicxtTYZEOOWZNS1959-68-27 08:26:00 Test Item Value Reference Range Interpretation Comments Basophils (test code = 0.9 See_Comment [Aut omated message] The Basophils) system which ge nerated this result tra nsmitted reference range : <=1.0. The reference r yadira was not used to int erpret this result as normal/abnormal . [facility]anoEzoaxreYPTUYBMSXE7072-27-12 08:26:00 Test Item Value Reference Range Interpretation Comments Eosinophils (test code = 2.9 See_Comment [A utomated message] The Eosinophils) system which ge nerated this result tra nsmitted reference range : <=4.0. The reference r yadira was not used to int erpret this result as normal/abnormal . [facility]anoKfjdmczSVNSEQWXRB1049-33-16 08:26:00 Test Item Value Reference Range Interpretation Comments Lymphocytes (test code = Lymphocytes) 24.4 20.0-40.0 [facility]anoHhawturCVZMGIOIAF0047-44-36 08:26:00 Test Item Value Reference Range Interpretation Comments Monocytes (test code = Monocytes) 10.9 2.0-12.0 [facility]anoMhkuokuEIWGXSHXEP9771-08-37 08:26:00 Test Item Value Reference Range Interpretation Comments Basophils # (test code 0.1 See_Comment [Aut omated message] The = Basophils #) system which generated this result tra nsmitted reference range : <=0.2. The reference r yadira was not used to int erpret this result as normal/abnormal . [facility]anoAdzeweiUEBGJUEKUI5322-10-92 08:26:00 Test Item Value Reference Range Interpretation Comments Eosinophils # (test code 0.4 See_Comment [A utomated message] The = Eosinophils #) system whic h generated this result tra nsmitted reference range : <=0.5. The reference r yadira was not used to int erpret this result as normal/abnormal . [facility]anoBdarwvfXAEWZPHUHL7160-39-23 08:26:00 Test Item Value Reference Range Interpretation Comments Lymphocytes # (test code = Lymphocytes 3.3 1.0-5.5 #) [facility]anoFclnawrFXVDVVQPMH2316-59-80 08:26:00 Test Item Value Reference Range Interpretation Comments Monocytes # (test code 1.5 See_Comment [Aut omated message] The = Monocytes #) system which generated this result tra nsmitted reference range : <=0.8. The reference r yadira was not used to int erpret this result as normal/abnormal . [facility]anoOjshjqnQTOSXLICHU6663-93-63 08:26:00 Test Item Value Reference Range Interpretation Comments Segs-Bands # (test code = Segs-Bands #) 8.2 1.5-8.1 [facility]anoIrpiyqeOUMCAENVNX7109-90-23 08:26:00 Test Item Value Reference Range Interpretation Comments Platelet (test code = Platelet) 259 133-450 [facility]anoPbdnygiSYKNLQINKM3451-35-33 08:26:00 Test Item Value Reference Range Interpretation Comments MPV (test code = MPV) 8.2 7.4-10.4 [facility]anoCmegqgiDEBVGWHVUB4956-71-03 08:26:00 Test Item Value Reference Range Interpretation Comments Hct (test code = Hct) 41.1 42.0-54.0 [facility]anoXnmyfodDROKYIWVPE0938-29-92 08:26:00 Test Item Value Reference Range Interpretation Comments MCHC (test code = MCHC) 32.5 32.0-36.0 [facility]anoWwicwghPADECMZKRI7851-55-95 08:26:00 Test Item Value Reference Range Interpretation Comments Hgb (test code = Hgb) 13.3 14.0-18.0 [facility]anoYdqcxjsCVSRBWTUPY4463-05-96 08:26:00 Test Item Value Reference Range Interpretation Comments RDW (test code = RDW) 13.7 11.5-14.5 [facility]anoRmxpcnuWXTMGGRCRE5601-83-62 08:26:00 Test Item Value Reference Range Interpretation Comments MCH (test code = MCH) 30.0 pg 27.0-31.0 [facility]anoCzdiqtyEVHKYYQDAA2491-56-49 08:26:00 Test Item Value Reference Range Interpretation Comments MCV (test code = MCV) 92.3 80.0-94.0 [facility]anoDwmeuxoGXLFZHEHLK2651-28-45 08:26:00 Test Item Value Reference Range Interpretation Comments WBC (test code = WBC) 13.5 3.7-10.4 [facility]anoNiswisuSRROZOQNGR7457-13-95 08:26:00 Test Item Value Reference Range Interpretation Comments RBC (test code = RBC) 4.45 4.70-6.10 [facility]burgEafwodeDUPPOLXVQKHS4562-54-79 08:26:00 Test Item Value Reference Range Interpretation Comments Potassium Lvl (test code = Potassium 3.3 3.5-5.1 Lvl) [facility]anoUzffselWXGJKORLUI6176-35-22 08:26:00 Test Item Value Reference Range Interpretation Comments Segs (test code = Segs) 60.9 45.0-75.0 [facility]anoUflhrhfEQFWZPJZKU6429-96-33 08:26:00 Test Item Value Reference Range Interpretation Comments Basophils (test code = 0.9 See_Comment [Aut omated message] The Basophils) system which ge nerated this result tra nsmitted reference range : <=1.0. The reference r yadira was not used to int erpret this result as normal/abnormal . [facility]anoRtlkztqIQETIOEIMT4136-97-14 08:26:00 Test Item Value Reference Range Interpretation Comments Eosinophils (test code = 2.9 See_Comment [A utomated message] The Eosinophils) system which ge nerated this result tra nsmitted reference range : <=4.0. The reference r yadira was not used to int erpret this result as normal/abnormal . [facility] PlanoMsngobaEPJPBFMVLV2261-59-23 08:26:00 Test Item Value Reference Range Interpretation Comments Lymphocytes (test code = Lymphocytes) 24.4 20.0-40.0 [facility]anoOabgufcGVZVMMBQMA0012-21-34 08:26:00 Test Item Value Reference Range Interpretation Comments Monocytes (test code = Monocytes) 10.9 2.0-12.0 [facility]anoFedgbfmPOKHNOUYXA7582-58-25 08:26:00 Test Item Value Reference Range Interpretation Comments Basophils # (test code 0.1 See_Comment [Aut omated message] The = Basophils #) system which generated this result tra nsmitted reference range : <=0.2. The reference r yadira was not used to int erpret this result as normal/abnormal . [facility]anoJatbhrhAZTKWHBGJJ2801-45-50 08:26:00 Test Item Value Reference Range Interpretation Comments Eosinophils # (test code 0.4 See_Comment [A utomated message] The = Eosinophils #) system whic h generated this result tra nsmitted reference range : <=0.5. The reference r yadira was not used to int erpret this result as normal/abnormal . [facility]anoElncpefDEIQKIXPSX9747-50-30 08:26:00 Test Item Value Reference Range Interpretation Comments Lymphocytes # (test code = Lymphocytes 3.3 1.0-5.5 #) [facility]anoSadosoeHXQYDYDBQE5377-98-11 08:26:00 Test Item Value Reference Range Interpretation Comments Monocytes # (test code 1.5 See_Comment [Aut omated message] The = Monocytes #) system which generated this result tra nsmitted reference range : <=0.8. The reference r yadira was not used to int erpret this result as normal/abnormal . [facility]anoQgbxgbxBOHWPKNDUR5241-34-30 08:26:00 Test Item Value Reference Range Interpretation Comments Segs-Bands # (test code = Segs-Bands #) 8.2 1.5-8.1 [facility]anoRnzgcofBRSPWREBUR6898-67-88 08:26:00 Test Item Value Reference Range Interpretation Comments Platelet (test code = Platelet) 259 133-450 [facility]anoSyrqdsnJEBPIVRYPF3312-07-28 08:26:00 Test Item Value Reference Range Interpretation Comments MPV (test code = MPV) 8.2 7.4-10.4 [facility]anoVwnwclyCLUAYETNQF1104-34-22 08:26:00 Test Item Value Reference Range Interpretation Comments Hct (test code = Hct) 41.1 42.0-54.0 [facility]anoWcskdagRZNZBMNLYG8963-77-25 08:26:00 Test Item Value Reference Range Interpretation Comments MCHC (test code = MCHC) 32.5 32.0-36.0 [facility]anoNaahzydISHHNMOVRI4990-26-33 08:26:00 Test Item Value Reference Range Interpretation Comments Hgb (test code = Hgb) 13.3 14.0-18.0 [facility]anoLphsyqiKPHHIJAUDX1000-91-91 08:26:00 Test Item Value Reference Range Interpretation Comments RDW (test code = RDW) 13.7 11.5-14.5 [facility]anoNetrktkFYNWOWAMVP5793-15-95 08:26:00 Test Item Value Reference Range Interpretation Comments MCH (test code = MCH) 30.0 pg 27.0-31.0 [facility]anoAqxdlhoVUDNCKYSKY3600-31-19 08:26:00 Test Item Value Reference Range Interpretation Comments MCV (test code = MCV) 92.3 80.0-94.0 [facility]anoStqmrdaOZJMAIHDRG8546-43-20 08:26:00 Test Item Value Reference Range Interpretation Comments WBC (test code = WBC) 13.5 3.7-10.4 [facility] PlanoZklnnpuPYNXNMUXWY0871-77-11 08:26:00 Test Item Value Reference Range Interpretation Comments RBC (test code = RBC) 4.45 4.70-6.10 [facility]burgPtczghtVCYDYHLEBSVG0384-86-83 08:26:00 Test Item Value Reference Range Interpretation Comments Potassium Lvl (test code = Potassium 3.3 3.5-5.1 Lvl) [id number] 08:26:00 Test Item Value Reference Range Interpretation Comments Segs (test code = Segs) 60.9 45.0-75.0 [id number] 08:26:00 Test Item Value Reference Range Interpretation Comments Basophils (test code = 0.9 See_Comment [Aut omated message] The Basophils) system which ge nerated this result tra nsmitted reference range : <=1.0. The reference r yadira was not used to int erpret this result as normal/abnormal . [id number] 08:26:00 Test Item Value Reference Range Interpretation Comments Eosinophils (test code = 2.9 See_Comment [A utomated message] The Eosinophils) system which ge nerated this result tra nsmitted reference range : <=4.0. The reference r yadira was not used to int erpret this result as normal/abnormal . [id number] 08:26:00 Test Item Value Reference Range Interpretation Comments Lymphocytes (test code = Lymphocytes) 24.4 20.0-40.0 [id number] 08:26:00 Test Item Value Reference Range Interpretation Comments Monocytes (test code = Monocytes) 10.9 2.0-12.0 [facility]anoKbqtvbxZPCIDOMOPK9540-51-35 08:26:00 Test Item Value Reference Range Interpretation Comments Basophils # (test code 0.1 See_Comment [Aut omated message] The = Basophils #) system which generated this result tra nsmitted reference range : <=0.2. The reference r yadira was not used to int erpret this result as normal/abnormal . [facility]a[id number] 08:26:00 Test Item Value Reference Range Interpretation Comments Eosinophils # (test code 0.4 See_Comment [A utomated message] The = Eosinophils #) system whic h generated this result tra nsmitted reference range : <=0.5. The reference r yadira was not used to int erpret this result as normal/abnormal . [id number] 08:26:00 Test Item Value Reference Range Interpretation Comments Lymphocytes # (test code = Lymphocytes 3.3 1.0-5.5 #) [facility]a[id number] 08:26:00 Test Item Value Reference Range Interpretation Comments Monocytes # (test code 1.5 See_Comment [Aut omated message] The = Monocytes #) system which generated this result tra nsmitted reference range : <=0.8. The reference r yadira was not used to int erpret this result as normal/abnormal . [facility]a[id number] 08:26:00 Test Item Value Reference Range Interpretation Comments Segs-Bands # (test code = Segs-Bands #) 8.2 1.5-8.1 [facility]anoUvjwipgRRECXFPUPC3688-21-00 08:26:00 Test Item Value Reference Range Interpretation Comments Platelet (test code = Platelet) 259 133-450 [facility]anoHponkumSWGVYLFXPV5468-51-08 08:26:00 Test Item Value Reference Range Interpretation Comments MPV (test code = MPV) 8.2 7.4-10.4 [facility]anoDttglafTXKKGTWWBO3866-02-24 08:26:00 Test Item Value Reference Range Interpretation Comments Hct (test code = Hct) 41.1 42.0-54.0 [facility]anoNgrbvsbNGJSNVYSKD0299-48-17 08:26:00 Test Item Value Reference Range Interpretation Comments MCHC (test code = MCHC) 32.5 32.0-36.0 [facility]anoDvhfpilLTUYODGRJD5251-90-60 08:26:00 Test Item Value Reference Range Interpretation Comments Hgb (test code = Hgb) 13.3 14.0-18.0 [facility]anoPtrrszmLILKZEMHUM5575-23-98 08:26:00 Test Item Value Reference Range Interpretation Comments RDW (test code = RDW) 13.7 11.5-14.5 [id number] 08:26:00 Test Item Value Reference Range Interpretation Comments MCH (test code = MCH) 30.0 pg 27.0-31.0 [facility]a[id number] 08:26:00 Test Item Value Reference Range Interpretation Comments MCV (test code = MCV) 92.3 80.0-94.0 [facility]anoQglsvslUMCHRLSNOT3508-69-13 08:26:00 Test Item Value Reference Range Interpretation Comments WBC (test code = WBC) 13.5 3.7-10.4 [facility]anoSeblstaINMBOLEPCD9080-57-29 08:26:00 Test Item Value Reference Range Interpretation Comments RBC (test code = RBC) 4.45 4.70-6.10 [place] [id number] 21:01:00 Test Item Value Reference Range Interpretation Comments Phenytoin Total (test code = Phenytoin 10.7 10.0-20.0 Total) [place] [id number] 21:01:00 Test Item Value Reference Range Interpretation Comments Phenytoin Free (test code = Phenytoin 0.87 1.00-2.00 Free) [place] [id number] 21:01:00 Test Item Value Reference Range Interpretation Comments Phenytoin Total (test code = Phenytoin 10.7 10.0-20.0 Total) [place] [id number] 21:01:00 Test Item Value Reference Range Interpretation Comments Phenytoin Free (test code = Phenytoin 0.87 1.00-2.00 Free) [place] [id number] 21:01:00 Test Item Value Reference Range Interpretation Comments Phenytoin Total (test code = Phenytoin 10.7 10.0-20.0 Total) [place] [id number] 21:01:00 Test Item Value Reference Range Interpretation Comments Phenytoin Free (test code = Phenytoin 0.87 1.00-2.00 Free) [place] [id number] 21:01:00 Test Item Value Reference Range Interpretation Comments Phenytoin Total (test code = Phenytoin 10.7 10.0-20.0 Total) [place] [id number] 21:01:00 Test Item Value Reference Range Interpretation Comments Phenytoin Free (test code = Phenytoin 0.87 1.00-2.00 Free) [place] [id number] 21:01:00 Test Item Value Reference Range Interpretation Comments Phenytoin Total (test code = Phenytoin 10.7 10.0-20.0 Total) [place] [id number] 21:01:00 Test Item Value Reference Range Interpretation Comments Phenytoin Free (test code = Phenytoin 0.87 1.00-2.00 Free) [id number] 21:01:00 Test Item Value Reference Range Interpretation Comments Phenytoin Total (test code = Phenytoin 10.7 10.0-20.0 Total) [facility] SystemZalvisqBTDUMWAUED3938-41-02 21:01:00 Test Item Value Reference Range Interpretation Comments Phenytoin Free (test code = Phenytoin 0.87 1.00-2.00 Free) [facility] SystemBACTERIAL - [id number] 18:10:00 Test Item Value Reference Range Interpretation Comments MRSA by PCR (test Negative (08/07/16 1:10 code = MRSA by PCR) PM) [facility]2017-06-21 18:10:00 Test Item Value Reference Range Interpretation Comments eGFR (test code = eGFR) 131 [facility]2017-06-21 18:10:00 Test Item Value Reference Range Interpretation Comments Calcium Lvl (test code = Calcium Lvl) 7.9 8.5-10.5 [facility]2017-06-21 18:10:00 Test Item Value Reference Range Interpretation Comments Potassium Lvl (test code = Potassium 3.1 3.5-5.1 Lvl) [facility]2017-06-21 18:10:00 Test Item Value Reference Range Interpretation Comments AGAP (test code = AGAP) 14.1 10.0-20.0 [facility]2017-06-21 18:10:00 Test Item Value Reference Range Interpretation Comments CO2 (test code = CO2) 20 24-32 [facility]2017-06-21 18:10:00 Test Item Value Reference Range Interpretation Comments Chloride Lvl (test code = Chloride Lvl) 110 95-109 [facility]2017-06-21 18:10:00 Test Item Value Reference Range Interpretation Comments Creatinine Lvl (test code = Creatinine 0.68 0.50-1.40 Lvl) [facility]2017-06-21 18:10:00 Test Item Value Reference Range Interpretation Comments Sodium Lvl (test code = Sodium Lvl) 141 135-145 [facility]2017-06-21 18:10:00 Test Item Value Reference Range Interpretation Comments Glucose Lvl (test code = Glucose Lvl) 70 70-99 [facility] [id number] 18:10:00 Test Item Value Reference Range Interpretation Comments BUN (test code = BUN) 4 7-22 [facility]2017-06-21 18:10:00 Test Item Value Reference Range Interpretation Comments Magnesium Lvl (test code = Magnesium 2.0 1.8-2.4 Lvl) [facility] [id number] 18:10:00 Test Item Value Reference Range Interpretation Comments Phosphorus (test code = Phosphorus) 2.5 2.5-4.5 [facility] SystemPARATHYROID [id number] 18:10:00 Test Item Value Reference Range Interpretation Comments Ca Ion WB (test code = Ca Ion WB) 1.09 1.05-1.25 [facility] [id number] 18:10:00 Test Item Value Reference Range Interpretation Comments Ca Norm WB (test code = Ca Norm WB) 1.06 1.05-1.25 [facility]BACT[facility] - [id number] 18:10:00 Test Item Value Reference Range Interpretation Comments MRSA by PCR (test Negative (08/07/16 1:10 code = MRSA by PCR) PM) [facility] [id number] 18:10:00 Test Item Value Reference Range Interpretation Comments eGFR (test code = eGFR) 131 [facility]2017-06-21 18:10:00 Test Item Value Reference Range Interpretation Comments Calcium Lvl (test code = Calcium Lvl) 7.9 8.5-10.5 [facility]2017-06-21 18:10:00 Test Item Value Reference Range Interpretation Comments Potassium Lvl (test code = Potassium 3.1 3.5-5.1 Lvl) [facility]landishAS[facility] [id number] 18:10:00 Test Item Value Reference Range Interpretation Comments AGAP (test code = AGAP) 14.1 10.0-20.0 [facility]2017-06-21 18:10:00 Test Item Value Reference Range Interpretation Comments CO2 (test code = CO2) 20 24-32 [facility] [id number] 18:10:00 Test Item Value Reference Range Interpretation Comments Chloride Lvl (test code = Chloride Lvl) 110 95-109 [facility] [id number] 18:10:00 Test Item Value Reference Range Interpretation Comments Creatinine Lvl (test code = Creatinine 0.68 0.50-1.40 Lvl) [facility]2017-06-21 18:10:00 Test Item Value Reference Range Interpretation Comments Sodium Lvl (test code = Sodium Lvl) 141 135-145 [facility]2017-06-21 18:10:00 Test Item Value Reference Range Interpretation Comments Glucose Lvl (test code = Glucose Lvl) 70 70-99 [facility]2017-06-21 18:10:00 Test Item Value Reference Range Interpretation Comments BUN (test code = BUN) 4 7-22 [facility]2017-06-21 18:10:00 Test Item Value Reference Range Interpretation Comments Magnesium Lvl (test code = Magnesium 2.0 1.8-2.4 Lvl) [facility]2017-06-21 18:10:00 Test Item Value Reference Range Interpretation Comments Phosphorus (test code = Phosphorus) 2.5 2.5-4.5 [facility] SystemPARATHYROID [id number] 18:10:00 Test Item Value Reference Range Interpretation Comments Ca Ion WB (test code = Ca Ion WB) 1.09 1.05-1.25 [facility] SystemPARATHYROID [id number] 18:10:00 Test Item Value Reference Range Interpretation Comments Ca Norm WB (test code = Ca Norm WB) 1.06 1.05-1.25 [facility] SystemBACT[facility] - [id number] 18:10:00 Test Item Value Reference Range Interpretation Comments MRSA by PCR (test Negative (08/07/16 1:10 code = MRSA by PCR) PM) [facility] [id number] 18:10:00 Test Item Value Reference Range Interpretation Comments eGFR (test code = eGFR) 131 [facility]2017-06-21 18:10:00 Test Item Value Reference Range Interpretation Comments Calcium Lvl (test code = Calcium Lvl) 7.9 8.5-10.5 [facility]2017-06-21 18:10:00 Test Item Value Reference Range Interpretation Comments Potassium Lvl (test code = Potassium 3.1 3.5-5.1 Lvl) [facility] [id number] 18:10:00 Test Item Value Reference Range Interpretation Comments AGAP (test code = AGAP) 14.1 10.0-20.0 [facility]2017-06-21 18:10:00 Test Item Value Reference Range Interpretation Comments CO2 (test code = CO2) 20 24-32 [facility]2017-06-21 18:10:00 Test Item Value Reference Range Interpretation Comments Chloride Lvl (test code = Chloride Lvl) 110 95-109 [facility]2017-06-21 18:10:00 Test Item Value Reference Range Interpretation Comments Creatinine Lvl (test code = Creatinine 0.68 0.50-1.40 Lvl) [facility]2017-06-21 18:10:00 Test Item Value Reference Range Interpretation Comments Sodium Lvl (test code = Sodium Lvl) 141 135-145 [facility]2017-06-21 18:10:00 Test Item Value Reference Range Interpretation Comments Glucose Lvl (test code = Glucose Lvl) 70 70-99 [facility]2017-06-21 18:10:00 Test Item Value Reference Range Interpretation Comments BUN (test code = BUN) 4 7-22 [facility]2017-06-21 18:10:00 Test Item Value Reference Range Interpretation Comments Magnesium Lvl (test code = Magnesium 2.0 1.8-2.4 Lvl) [facility]2017-06-21 18:10:00 Test Item Value Reference Range Interpretation Comments Phosphorus (test code = Phosphorus) 2.5 2.5-4.5 [facility] SystemPARATHYROID [id number] 18:10:00 Test Item Value Reference Range Interpretation Comments Ca Ion WB (test code = Ca Ion WB) 1.09 1.05-1.25 [facility]RO[facility] [id number] 18:10:00 Test Item Value Reference Range Interpretation Comments Ca Norm WB (test code = Ca Norm WB) 1.06 1.05-1.25 [facility]BA[facility] - [id number] 18:10:00 Test Item Value Reference Range Interpretation Comments MRSA by PCR (test Negative (08/07/16 1:10 code = MRSA by PCR) PM) [facility]2017-06-21 18:10:00 Test Item Value Reference Range Interpretation Comments eGFR (test code = eGFR) 131 [facility]2017-06-21 18:10:00 Test Item Value Reference Range Interpretation Comments Calcium Lvl (test code = Calcium Lvl) 7.9 8.5-10.5 [facility]2017-06-21 18:10:00 Test Item Value Reference Range Interpretation Comments Potassium Lvl (test code = Potassium 3.1 3.5-5.1 Lvl) [facility]2017-06-21 18:10:00 Test Item Value Reference Range Interpretation Comments AGAP (test code = AGAP) 14.1 10.0-20.0 [facility]2017-06-21 18:10:00 Test Item Value Reference Range Interpretation Comments CO2 (test code = CO2) 20 24-32 [facility]2017-06-21 18:10:00 Test Item Value Reference Range Interpretation Comments Chloride Lvl (test code = Chloride Lvl) 110 95-109 [facility]2017-06-21 18:10:00 Test Item Value Reference Range Interpretation Comments Creatinine Lvl (test code = Creatinine 0.68 0.50-1.40 Lvl) [facility]2017-06-21 18:10:00 Test Item Value Reference Range Interpretation Comments Sodium Lvl (test code = Sodium Lvl) 141 135-145 [facility]2017-06-21 18:10:00 Test Item Value Reference Range Interpretation Comments Glucose Lvl (test code = Glucose Lvl) 70 70-99 [facility]2017-06-21 18:10:00 Test Item Value Reference Range Interpretation Comments BUN (test code = BUN) 4 7-22 [facility]2017-06-21 18:10:00 Test Item Value Reference Range Interpretation Comments Magnesium Lvl (test code = Magnesium 2.0 1.8-2.4 Lvl) [facility]2017-06-21 18:10:00 Test Item Value Reference Range Interpretation Comments Phosphorus (test code = Phosphorus) 2.5 2.5-4.5 [facility]PAR[facility]YROID [id number] 18:10:00 Test Item Value Reference Range Interpretation Comments Ca Ion WB (test code = Ca Ion WB) 1.09 1.05-1.25 [facility] SystemPARATHYROID [id number] 18:10:00 Test Item Value Reference Range Interpretation Comments Ca Norm WB (test code = Ca Norm WB) 1.06 1.05-1.25 [facility] SystemBACT[facility] - [id number] 18:10:00 Test Item Value Reference Range Interpretation Comments MRSA by PCR (test Negative (08/07/16 1:10 code = MRSA by PCR) PM) [facility] [id number] 18:10:00 Test Item Value Reference Range Interpretation Comments eGFR (test code = eGFR) 131 [facility]2017-06-21 18:10:00 Test Item Value Reference Range Interpretation Comments Calcium Lvl (test code = Calcium Lvl) 7.9 8.5-10.5 [facility]2017-06-21 18:10:00 Test Item Value Reference Range Interpretation Comments Potassium Lvl (test code = Potassium 3.1 3.5-5.1 Lvl) [facility]2017-06-21 18:10:00 Test Item Value Reference Range Interpretation Comments AGAP (test code = AGAP) 14.1 10.0-20.0 [facility]2017-06-21 18:10:00 Test Item Value Reference Range Interpretation Comments CO2 (test code = CO2) 20 24-32 [facility]2017-06-21 18:10:00 Test Item Value Reference Range Interpretation Comments Chloride Lvl (test code = Chloride Lvl) 110 95-109 [facility]2017-06-21 18:10:00 Test Item Value Reference Range Interpretation Comments Creatinine Lvl (test code = Creatinine 0.68 0.50-1.40 Lvl) [facility]2017-06-21 18:10:00 Test Item Value Reference Range Interpretation Comments Sodium Lvl (test code = Sodium Lvl) 141 135-145 [facility]2017-06-21 18:10:00 Test Item Value Reference Range Interpretation Comments Glucose Lvl (test code = Glucose Lvl) 70 70-99 [facility]2017-06-21 18:10:00 Test Item Value Reference Range Interpretation Comments BUN (test code = BUN) 4 7-22 [facility] [id number] 18:10:00 Test Item Value Reference Range Interpretation Comments Magnesium Lvl (test code = Magnesium 2.0 1.8-2.4 Lvl) [facility] [id number] 18:10:00 Test Item Value Reference Range Interpretation Comments Phosphorus (test code = Phosphorus) 2.5 2.5-4.5 [facility] [id number] 18:10:00 Test Item Value Reference Range Interpretation Comments Ca Ion WB (test code = Ca Ion WB) 1.09 1.05-1.25 [facility] SystemPARMOHA[facility] SYSTEMROID [id number] 18:10:00 Test Item Value Reference Range Interpretation Comments Ca Norm WB (test code = Ca Norm WB) 1.06 1.05-1.25 [facility] SystemBACT[facility] - [id number] 18:10:00 Test Item Value Reference Range Interpretation Comments MRSA by PCR (test Negative (08/07/16 1:10 code = MRSA by PCR) PM) [facility]2017-06-21 18:10:00 Test Item Value Reference Range Interpretation Comments eGFR (test code = eGFR) 131 [facility]2017-06-21 18:10:00 Test Item Value Reference Range Interpretation Comments Calcium Lvl (test code = Calcium Lvl) 7.9 8.5-10.5 [facility]2017-06-21 18:10:00 Test Item Value Reference Range Interpretation Comments Potassium Lvl (test code = Potassium 3.1 3.5-5.1 Lvl) [facility] [id number] 18:10:00 Test Item Value Reference Range Interpretation Comments AGAP (test code = AGAP) 14.1 10.0-20.0 [facility]2017-06-21 18:10:00 Test Item Value Reference Range Interpretation Comments CO2 (test code = CO2) 20 24-32 [facility]2017-06-21 18:10:00 Test Item Value Reference Range Interpretation Comments Chloride Lvl (test code = Chloride Lvl) 110 95-109 [facility]2017-06-21 18:10:00 Test Item Value Reference Range Interpretation Comments Creatinine Lvl (test code = Creatinine 0.68 0.50-1.40 Lvl) [facility] [id number] 18:10:00 Test Item Value Reference Range Interpretation Comments Sodium Lvl (test code = Sodium Lvl) 141 135-145 [facility]2017-06-21 18:10:00 Test Item Value Reference Range Interpretation Comments Glucose Lvl (test code = Glucose Lvl) 70 70-99 [facility]2017-06-21 18:10:00 Test Item Value Reference Range Interpretation Comments BUN (test code = BUN) 4 7-22 [facility]2017-06-21 18:10:00 Test Item Value Reference Range Interpretation Comments Magnesium Lvl (test code = Magnesium 2.0 1.8-2.4 Lvl) [facility]2017-06-21 18:10:00 Test Item Value Reference Range Interpretation Comments Phosphorus (test code = Phosphorus) 2.5 2.5-4.5 [facility]PARATHYROID [id number] 18:10:00 Test Item Value Reference Range Interpretation Comments Ca Ion WB (test code = Ca Ion WB) 1.09 1.05-1.25 [facility] SystemPARATHYROID [id number] 18:10:00 Test Item Value Reference Range Interpretation Comments Ca Norm WB (test code = Ca Norm WB) 1.06 1.05-1.25 [facility]DR[facility] [id number] 07:45:00 Test Item Value Reference Range Interpretation Comments UDS Note (test code = See Note (08/07/16 2:45 UDS Note) AM) [facility] [id number] 07:45:00 Test Item Value Reference Range Interpretation Comments U Phencyc Scr (test Negative *NA*(08/07/16 code = U Phencyc Scr) 2:45 AM) [facility] [id number] 07:45:00 Test Item Value Reference Range Interpretation Comments U Opiate Scr (test Negative *NA*(08/07/16 code = U Opiate Scr) 2:45 AM) [facility] [id number] 07:45:00 Test Item Value Reference Range Interpretation Comments U Amph Scr (test code Negative *NA*(08/07/16 = U Amph Scr) 2:45 AM) [facility] [id number] 07:45:00 Test Item Value Reference Range Interpretation Comments U Helen Scr (test code Negative *NA*(08/07/16 = U Helen Scr) 2:45 AM) [facility] [id number] 07:45:00 Test Item Value Reference Range Interpretation Comments U Benzodia Scr (test Positive *ABN*(08/07/16 code = U Benzodia Scr) 2:45 AM) [facility] [id number] 07:45:00 Test Item Value Reference Range Interpretation Comments U Cannab Scr (test Positive *ABN*(08/07/16 code = U Cannab Scr) 2:45 AM) [facility]DR[facility] [id number] 07:45:00 Test Item Value Reference Range Interpretation Comments U Cocaine Scr (test Negative *NA*(08/07/16 code = U Cocaine Scr) 2:45 AM) [facility] CenterannUR[facility] AND [id number] 07:45:00 Test Item Value Reference Range Interpretation Comments UA Urobilinogen (test code = UA <=1.0 mg/dL 0.1-1.0 Urobilinogen) [facility] [id number] 07:45:00 Test Item Value Reference Range Interpretation Comments UA Blood (test code = Negative (08/07/16 2:45 UA Blood) AM) [facility] AND [id number] 07:45:00 Test Item Value Reference Range Interpretation Comments UA Ketones (test code = UA Ketones) 80 mg/dL [facility]annR[facility] AND [id number] 07:45:00 Test Item Value Reference Range Interpretation Comments UA Bili (test code = Negative *NA*(08/07/16 UA Bili) 2:45 AM) [facility]annUR[facility] AND [id number] 07:45:00 Test Item Value Reference Range Interpretation Comments UA WBC (test code = 1 See_Comment [Automa michelle message] The UA WBC) system which ge nerated this result transmit michelle reference range : <=5. The reference range was not used to interpr et this result as meme l/abnormal. [facility] CenterannUR[facility] AND [id number] 07:45:00 Test Item Value Reference Range Interpretation Comments UA Nitrite (test code Negative (08/07/16 2:45 = UA Nitrite) AM) [facility] [id number] 07:45:00 Test Item Value Reference Range Interpretation Comments UA Leuk Est (test Negative (08/07/16 2:45 code = UA Leuk Est) AM) [facility] [id number] 07:45:00 Test Item Value Reference Range Interpretation Comments UA Sq Epi (test code = UA Sq Epi) None [facility]en [facility] [id number] 07:45:00 Test Item Value Reference Range Interpretation Comments UA Mucus (test code = UA Mucus) Few /LPF [facility] [id number] 07:45:00 Test Item Value Reference Range Interpretation Comments UA Turbidity (test code = Clear (08/07/16 2:45 UA Turbidity) AM) [facility] AND [id number] 07:45:00 Test Item Value Reference Range Interpretation Comments UA Color (test code = Yellow *NA*(08/07/16 UA Color) 2:45 AM) [facility] [id number] 07:45:00 Test Item Value Reference Range Interpretation Comments UA Spec Grav (test code = UA Spec Grav) 1.009 [facility] AND [id number] 07:45:00 Test Item Value Reference Range Interpretation Comments UA Protein (test code = UA Negative mg/dL Protein) [facility] AND [id number] 07:45:00 Test Item Value Reference Range Interpretation Comments UA pH (test code = UA pH) 6.5 5.0-8.0 [facility] AND [id number] 07:45:00 Test Item Value Reference Range Interpretation Comments UA Glucose (test code = UA Negative mg/dL Glucose) [facility] [id number] 07:45:00 Test Item Value Reference Range Interpretation Comments UDS Note (test code = See Note (08/07/16 2:45 UDS Note) AM) [facility] [id number] 07:45:00 Test Item Value Reference Range Interpretation Comments U Phencyc Scr (test Negative *NA*(08/07/16 code = U Phencyc Scr) 2:45 AM) [facility] [id number] 07:45:00 Test Item Value Reference Range Interpretation Comments U Opiate Scr (test Negative *NA*(08/07/16 code = U Opiate Scr) 2:45 AM) [facility] [id number] 07:45:00 Test Item Value Reference Range Interpretation Comments U Amph Scr (test code Negative *NA*(08/07/16 = U Amph Scr) 2:45 AM) [facility] [id number] 07:45:00 Test Item Value Reference Range Interpretation Comments U Helen Scr (test code Negative *NA*(08/07/16 = U Helen Scr) 2:45 AM) [facility] [id number] 07:45:00 Test Item Value Reference Range Interpretation Comments U Benzodia Scr (test Positive *ABN*(08/07/16 code = U Benzodia Scr) 2:45 AM) [facility] [id number] 07:45:00 Test Item Value Reference Range Interpretation Comments U Cannab Scr (test Positive *ABN*(08/07/16 code = U Cannab Scr) 2:45 AM) [facility] [id number] 07:45:00 Test Item Value Reference Range Interpretation Comments U Cocaine Scr (test Negative *NA*(08/07/16 code = U Cocaine Scr) 2:45 AM) [facility] [id number] 07:45:00 Test Item Value Reference Range Interpretation Comments UA Urobilinogen (test code = UA <=1.0 mg/dL 0.1-1.0 Urobilinogen) [facility] [id number] 07:45:00 Test Item Value Reference Range Interpretation Comments UA Blood (test code = Negative (08/07/16 2:45 UA Blood) AM) [facility] [id number] 07:45:00 Test Item Value Reference Range Interpretation Comments UA Ketones (test code = UA Ketones) 80 mg/dL [facility] [id number] 07:45:00 Test Item Value Reference Range Interpretation Comments UA Bili (test code = Negative *NA*(08/07/16 UA Bili) 2:45 AM) [facility] [id number] 07:45:00 Test Item Value Reference Range Interpretation Comments UA WBC (test code = 1 See_Comment [Automa michelle message] The UA WBC) system which ge nerated this result transmit michelle reference range : <=5. The reference range was not used to interpr et this result as meme l/abnormal. [facility] AND [id number] 07:45:00 Test Item Value Reference Range Interpretation Comments UA Nitrite (test code Negative (08/07/16 2:45 = UA Nitrite) AM) [facility] AND [id number] 07:45:00 Test Item Value Reference Range Interpretation Comments UA Leuk Est (test Negative (08/07/16 2:45 code = UA Leuk Est) AM) [facility] AND [id number] 07:45:00 Test Item Value Reference Range Interpretation Comments UA Sq Epi (test code = UA Sq Epi) None Seen [facility] AND [id number] 07:45:00 Test Item Value Reference Range Interpretation Comments UA Mucus (test code = UA Mucus) Few /LPF [facility] AND [id number] 07:45:00 Test Item Value Reference Range Interpretation Comments UA Turbidity (test code = Clear (08/07/16 2:45 UA Turbidity) AM) [facility] AND [id number] 07:45:00 Test Item Value Reference Range Interpretation Comments UA Color (test code = Yellow *NA*(08/07/16 UA Color) 2:45 AM) [facility] AND [id number] 07:45:00 Test Item Value Reference Range Interpretation Comments UA Spec Grav (test code = UA Spec Grav) 1.009 [facility] AND [id number] 07:45:00 Test Item Value Reference Range Interpretation Comments UA Protein (test code = UA Negative mg/dL Protein) [facility] AND [id number] 07:45:00 Test Item Value Reference Range Interpretation Comments UA pH (test code = UA pH) 6.5 5.0-8.0 [facility] AND [id number] 07:45:00 Test Item Value Reference Range Interpretation Comments UA Glucose (test code = UA Negative mg/dL Glucose) [facility] [id number] 07:45:00 Test Item Value Reference Range Interpretation Comments UDS Note (test code = See Note (08/07/16 2:45 UDS Note) AM) [facility] [id number] 07:45:00 Test Item Value Reference Range Interpretation Comments U Phencyc Scr (test Negative *NA*(08/07/16 code = U Phencyc Scr) 2:45 AM) [facility] [id number] 07:45:00 Test Item Value Reference Range Interpretation Comments U Opiate Scr (test Negative *NA*(08/07/16 code = U Opiate Scr) 2:45 AM) [facility] [id number] 07:45:00 Test Item Value Reference Range Interpretation Comments U Amph Scr (test code Negative *NA*(08/07/16 = U Amph Scr) 2:45 AM) [facility] [id number] 07:45:00 Test Item Value Reference Range Interpretation Comments U Helen Scr (test code Negative *NA*(08/07/16 = U Helen Scr) 2:45 AM) [facility] [id number] 07:45:00 Test Item Value Reference Range Interpretation Comments U Benzodia Scr (test Positive *ABN*(08/07/16 code = U Benzodia Scr) 2:45 AM) [facility] [id number] 07:45:00 Test Item Value Reference Range Interpretation Comments U Cannab Scr (test Positive *ABN*(08/07/16 code = U Cannab Scr) 2:45 AM) [facility] [id number] 07:45:00 Test Item Value Reference Range Interpretation Comments U Cocaine Scr (test Negative *NA*(08/07/16 code = U Cocaine Scr) 2:45 AM) [facility] [id number] 07:45:00 Test Item Value Reference Range Interpretation Comments UA Urobilinogen (test code = UA <=1.0 mg/dL 0.1-1.0 Urobilinogen) [facility] [id number] 07:45:00 Test Item Value Reference Range Interpretation Comments UA Blood (test code = Negative (08/07/16 2:45 UA Blood) AM) [facility] [id number] 07:45:00 Test Item Value Reference Range Interpretation Comments UA Ketones (test code = UA Ketones) 80 mg/dL [facility] [id number] 07:45:00 Test Item Value Reference Range Interpretation Comments UA Bili (test code = Negative *NA*(08/07/16 UA Bili) 2:45 AM) [facility] AND [id number] 07:45:00 Test Item Value Reference Range Interpretation Comments UA WBC (test code = 1 See_Comment [Automa michelle message] The UA WBC) system which ge nerated this result transmit michelle reference range : <=5. The reference range was not used to interpr et this result as meme l/abnormal. [facility] AND [id number] 07:45:00 Test Item Value Reference Range Interpretation Comments UA Nitrite (test code Negative (08/07/16 2:45 = UA Nitrite) AM) [facility] AND [id number] 07:45:00 Test Item Value Reference Range Interpretation Comments UA Leuk Est (test Negative (08/07/16 2:45 code = UA Leuk Est) AM) [facility] AND [id number] 07:45:00 Test Item Value Reference Range Interpretation Comments UA Sq Epi (test code = UA Sq Epi) None Seen [facility] AND [id number] 07:45:00 Test Item Value Reference Range Interpretation Comments UA Mucus (test code = UA Mucus) Few /LPF [facility] AND [id number] 07:45:00 Test Item Value Reference Range Interpretation Comments UA Turbidity (test code = Clear (08/07/16 2:45 UA Turbidity) AM) [facility] AND [id number] 07:45:00 Test Item Value Reference Range Interpretation Comments UA Color (test code = Yellow *NA*(08/07/16 UA Color) 2:45 AM) [facility] AND [id number] 07:45:00 Test Item Value Reference Range Interpretation Comments UA Spec Grav (test code = UA Spec Grav) 1.009 [facility] AND [id number] 07:45:00 Test Item Value Reference Range Interpretation Comments UA Protein (test code = UA Negative mg/dL Protein) [facility] AND [id number] 07:45:00 Test Item Value Reference Range Interpretation Comments UA pH (test code = UA pH) 6.5 5.0-8.0 [facility] [id number] 07:45:00 Test Item Value Reference Range Interpretation Comments UA Glucose (test code = UA Negative mg/dL Glucose) [facility] [id number] 07:45:00 Test Item Value Reference Range Interpretation Comments UDS Note (test code = See Note (08/07/16 2:45 UDS Note) AM) [facility] [id number] 07:45:00 Test Item Value Reference Range Interpretation Comments U Phencyc Scr (test Negative *NA*(08/07/16 code = U Phencyc Scr) 2:45 AM) [facility] [id number] 07:45:00 Test Item Value Reference Range Interpretation Comments U Opiate Scr (test Negative *NA*(08/07/16 code = U Opiate Scr) 2:45 AM) [facility] [id number] 07:45:00 Test Item Value Reference Range Interpretation Comments U Amph Scr (test code Negative *NA*(08/07/16 = U Amph Scr) 2:45 AM) [facility] [id number] 07:45:00 Test Item Value Reference Range Interpretation Comments U Helen Scr (test code Negative *NA*(08/07/16 = U Helen Scr) 2:45 AM) [facility] [id number] 07:45:00 Test Item Value Reference Range Interpretation Comments U Benzodia Scr (test Positive *ABN*(08/07/16 code = U Benzodia Scr) 2:45 AM) [facility] [id number] 07:45:00 Test Item Value Reference Range Interpretation Comments U Cannab Scr (test Positive *ABN*(08/07/16 code = U Cannab Scr) 2:45 AM) [facility] [id number] 07:45:00 Test Item Value Reference Range Interpretation Comments U Cocaine Scr (test Negative *NA*(08/07/16 code = U Cocaine Scr) 2:45 AM) [facility] AND [id number] 07:45:00 Test Item Value Reference Range Interpretation Comments UA Urobilinogen (test code = UA <=1.0 mg/dL 0.1-1.0 Urobilinogen) [facility] AND [id number] 07:45:00 Test Item Value Reference Range Interpretation Comments UA Blood (test code = Negative (08/07/16 2:45 UA Blood) AM) [facility] AND [id number] 07:45:00 Test Item Value Reference Range Interpretation Comments UA Ketones (test code = UA Ketones) 80 mg/dL [facility] AND [id number] 07:45:00 Test Item Value Reference Range Interpretation Comments UA Bili (test code = Negative *NA*(08/07/16 UA Bili) 2:45 AM) [facility] AND [id number] 07:45:00 Test Item Value Reference Range Interpretation Comments UA WBC (test code = 1 See_Comment [Automa michelle message] The UA WBC) system which ge nerated this result transmit michelle reference range : <=5. The reference range was not used to interpr et this result as meme l/abnormal. [facility] AND [id number] 07:45:00 Test Item Value Reference Range Interpretation Comments UA Nitrite (test code Negative (08/07/16 2:45 = UA Nitrite) AM) [facility] AND [id number] 07:45:00 Test Item Value Reference Range Interpretation Comments UA Leuk Est (test Negative (08/07/16 2:45 code = UA Leuk Est) AM) [facility] AND [id number] 07:45:00 Test Item Value Reference Range Interpretation Comments UA Sq Epi (test code = UA Sq Epi) None Seen [facility] AND [id number] 07:45:00 Test Item Value Reference Range Interpretation Comments UA Mucus (test code = UA Mucus) Few /LPF [facility] AND [id number] 07:45:00 Test Item Value Reference Range Interpretation Comments UA Turbidity (test code = Clear (08/07/16 2:45 UA Turbidity) AM) [facility] AND [id number] 07:45:00 Test Item Value Reference Range Interpretation Comments UA Color (test code = Yellow *NA*(08/07/16 UA Color) 2:45 AM) [facility] AND [id number] 07:45:00 Test Item Value Reference Range Interpretation Comments UA Spec Grav (test code = UA Spec Grav) 1.009 [facility] AND [id number] 07:45:00 Test Item Value Reference Range Interpretation Comments UA Protein (test code = UA Negative mg/dL Protein) [facility] AND [id number] 07:45:00 Test Item Value Reference Range Interpretation Comments UA pH (test code = UA pH) 6.5 5.0-8.0 [facility] AND [id number] 07:45:00 Test Item Value Reference Range Interpretation Comments UA Glucose (test code = UA Negative mg/dL Glucose) [facility] [id number] 07:45:00 Test Item Value Reference Range Interpretation Comments UDS Note (test code = See Note (08/07/16 2:45 UDS Note) AM) [facility] [id number] 07:45:00 Test Item Value Reference Range Interpretation Comments U Phencyc Scr (test Negative *NA*(08/07/16 code = U Phencyc Scr) 2:45 AM) [facility] [id number] 07:45:00 Test Item Value Reference Range Interpretation Comments U Opiate Scr (test Negative *NA*(08/07/16 code = U Opiate Scr) 2:45 AM) [facility] [id number] 07:45:00 Test Item Value Reference Range Interpretation Comments U Amph Scr (test code Negative *NA*(08/07/16 = U Amph Scr) 2:45 AM) [facility] [id number] 07:45:00 Test Item Value Reference Range Interpretation Comments U Helen Scr (test code Negative *NA*(08/07/16 = U Helen Scr) 2:45 AM) [facility] [id number] 07:45:00 Test Item Value Reference Range Interpretation Comments U Benzodia Scr (test Positive *ABN*(08/07/16 code = U Benzodia Scr) 2:45 AM) [facility] [id number] 07:45:00 Test Item Value Reference Range Interpretation Comments U Cannab Scr (test Positive *ABN*(08/07/16 code = U Cannab Scr) 2:45 AM) [facility] [id number] 07:45:00 Test Item Value Reference Range Interpretation Comments U Cocaine Scr (test Negative *NA*(08/07/16 code = U Cocaine Scr) 2:45 AM) [facility] AND [id number] 07:45:00 Test Item Value Reference Range Interpretation Comments UA Urobilinogen (test code = UA <=1.0 mg/dL 0.1-1.0 Urobilinogen) [facility] AND [id number] 07:45:00 Test Item Value Reference Range Interpretation Comments UA Blood (test code = Negative (08/07/16 2:45 UA Blood) AM) [facility] AND [id number] 07:45:00 Test Item Value Reference Range Interpretation Comments UA Ketones (test code = UA Ketones) 80 mg/dL [facility] AND [id number] 07:45:00 Test Item Value Reference Range Interpretation Comments UA Bili (test code = Negative *NA*(08/07/16 UA Bili) 2:45 AM) [facility] AND [id number] 07:45:00 Test Item Value Reference Range Interpretation Comments UA WBC (test code = 1 See_Comment [Automa michelle message] The UA WBC) system which ge nerated this result transmit michelle reference range : <=5. The reference range was not used to interpr et this result as meme l/abnormal. [facility] AND [id number] 07:45:00 Test Item Value Reference Range Interpretation Comments UA Nitrite (test code Negative (08/07/16 2:45 = UA Nitrite) AM) [facility] AND [id number] 07:45:00 Test Item Value Reference Range Interpretation Comments UA Leuk Est (test Negative (08/07/16 2:45 code = UA Leuk Est) AM) [facility] AND [id number] 07:45:00 Test Item Value Reference Range Interpretation Comments UA Sq Epi (test code = UA Sq Epi) None Seen [facility] AND [id number] 07:45:00 Test Item Value Reference Range Interpretation Comments UA Mucus (test code = UA Mucus) Few /LPF [facility] AND [id number] 07:45:00 Test Item Value Reference Range Interpretation Comments UA Turbidity (test code = Clear (08/07/16 2:45 UA Turbidity) AM) [facility] [id number] 07:45:00 Test Item Value Reference Range Interpretation Comments UA Color (test code = Yellow *NA*(08/07/16 UA Color) 2:45 AM) [facility] [id number] 07:45:00 Test Item Value Reference Range Interpretation Comments UA Spec Grav (test code = UA Spec Grav) 1.009 [facility] [id number] 07:45:00 Test Item Value Reference Range Interpretation Comments UA Protein (test code = UA Negative mg/dL Protein) [facility] [id number] 07:45:00 Test Item Value Reference Range Interpretation Comments UA pH (test code = UA pH) 6.5 5.0-8.0 [facility] [id number] 07:45:00 Test Item Value Reference Range Interpretation Comments UA Glucose (test code = UA Negative mg/dL Glucose) [facility] [id number] 07:45:00 Test Item Value Reference Range Interpretation Comments UDS Note (test code = See Note (08/07/16 2:45 UDS Note) AM) [facility] [id number] 07:45:00 Test Item Value Reference Range Interpretation Comments U Phencyc Scr (test Negative *NA*(08/07/16 code = U Phencyc Scr) 2:45 AM) [facility] [id number] 07:45:00 Test Item Value Reference Range Interpretation Comments U Opiate Scr (test Negative *NA*(08/07/16 code = U Opiate Scr) 2:45 AM) [facility] [id number] 07:45:00 Test Item Value Reference Range Interpretation Comments U Amph Scr (test code Negative *NA*(08/07/16 = U Amph Scr) 2:45 AM) [facility] [id number] 07:45:00 Test Item Value Reference Range Interpretation Comments U Helen Scr (test code Negative *NA*(08/07/16 = U Helen Scr) 2:45 AM) [facility] [id number] 07:45:00 Test Item Value Reference Range Interpretation Comments U Benzodia Scr (test Positive *ABN*(08/07/16 code = U Benzodia Scr) 2:45 AM) [facility] [id number] 07:45:00 Test Item Value Reference Range Interpretation Comments U Cannab Scr (test Positive *ABN*(08/07/16 code = U Cannab Scr) 2:45 AM) [facility] [id number] 07:45:00 Test Item Value Reference Range Interpretation Comments U Cocaine Scr (test Negative *NA*(08/07/16 code = U Cocaine Scr) 2:45 AM) [facility] [id number] 07:45:00 Test Item Value Reference Range Interpretation Comments UA Urobilinogen (test code = UA <=1.0 mg/dL 0.1-1.0 Urobilinogen) [facility] [id number] 07:45:00 Test Item Value Reference Range Interpretation Comments UA Blood (test code = Negative (08/07/16 2:45 UA Blood) AM) [facility] [id number] 07:45:00 Test Item Value Reference Range Interpretation Comments UA Ketones (test code = UA Ketones) 80 mg/dL [facility] [id number] 07:45:00 Test Item Value Reference Range Interpretation Comments UA Bili (test code = Negative *NA*(08/07/16 UA Bili) 2:45 AM) [facility] [id number] 07:45:00 Test Item Value Reference Range Interpretation Comments UA WBC (test code = 1 See_Comment [Automa michelle message] The UA WBC) system which ge nerated this result transmit michelle reference range : <=5. The reference range was not used to interpr et this result as meme l/abnormal. [facility] [id number] 07:45:00 Test Item Value Reference Range Interpretation Comments UA Nitrite (test code Negative (08/07/16 2:45 = UA Nitrite) AM) [facility] [id number] 07:45:00 Test Item Value Reference Range Interpretation Comments UA Leuk Est (test Negative (08/07/16 2:45 code = UA Leuk Est) AM) [facility] [id number] 07:45:00 Test Item Value Reference Range Interpretation Comments UA Sq Epi (test code = UA Sq Epi) None Seen [facility] [id number] 07:45:00 Test Item Value Reference Range Interpretation Comments UA Mucus (test code = UA Mucus) Few /LPF [facility] AND [id number] 07:45:00 Test Item Value Reference Range Interpretation Comments UA Turbidity (test code = Clear (08/07/16 2:45 UA Turbidity) AM) [facility] AND [id number] 07:45:00 Test Item Value Reference Range Interpretation Comments UA Color (test code = Yellow *NA*(08/07/16 UA Color) 2:45 AM) [facility] AND [id number] 07:45:00 Test Item Value Reference Range Interpretation Comments UA Spec Grav (test code = UA Spec Grav) 1.009 [facility] AND [id number] 07:45:00 Test Item Value Reference Range Interpretation Comments UA Protein (test code = UA Negative mg/dL Protein) [facility] AND [id number] 07:45:00 Test Item Value Reference Range Interpretation Comments UA pH (test code = UA pH) 6.5 5.0-8.0 [facility] AND [id number] 07:45:00 Test Item Value Reference Range Interpretation Comments UA Glucose (test code = UA Negative mg/dL Glucose) [facility]2017-06-21 07:32:00 Test Item Value Reference Range Interpretation Comments Phosphorus (test code = Phosphorus) 2.4 2.5-4.5 [facility]2017-06-21 07:32:00 Test Item Value Reference Range Interpretation Comments BUN (test code = BUN) 7 7-22 [facility]2017-06-21 07:32:00 Test Item Value Reference Range Interpretation Comments Glucose Lvl (test code = Glucose Lvl) 53 70-99 [facility]2017-06-21 07:32:00 Test Item Value Reference Range Interpretation Comments Sodium Lvl (test code = Sodium Lvl) 142 135-145 [facility]2017-06-21 07:32:00 Test Item Value Reference Range Interpretation Comments Creatinine Lvl (test code = Creatinine 0.89 0.50-1.40 Lvl) [facility]2017-06-21 07:32:00 Test Item Value Reference Range Interpretation Comments Potassium Lvl (test code = Potassium 3.0 3.5-5.1 Lvl) [facility]2017-06-21 07:32:00 Test Item Value Reference Range Interpretation Comments Chloride Lvl (test code = Chloride Lvl) 111 95-109 [facility]2017-06-21 07:32:00 Test Item Value Reference Range Interpretation Comments eGFR (test code = eGFR) 117 [facility]2017-06-21 07:32:00 Test Item Value Reference Range Interpretation Comments CO2 (test code = CO2) 17 24-32 [facility]2017-06-21 07:32:00 Test Item Value Reference Range Interpretation Comments Calcium Lvl (test code = Calcium Lvl) 8.4 8.5-10.5 [facility]2017-06-21 07:32:00 Test Item Value Reference Range Interpretation Comments AGAP (test code = AGAP) 17.0 10.0-20.0 [facility]2017-06-21 07:32:00 Test Item Value Reference Range Interpretation Comments Magnesium Lvl (test code = Magnesium 2.3 1.8-2.4 Lvl) [facility]kppspQAHYKHGICW5080-[facility]-92 07:32:00 Test Item Value Reference Range Interpretation Comments MCHC (test code = MCHC) 33.8 32.0-36.0 [facility]anoGoxpqciBNDSRTUABI4290-81-38 07:32:00 Test Item Value Reference Range Interpretation Comments RDW (test code = RDW) 13.5 11.5-14.5 [facility]anoLzjgxdlTXEMAREYQR9560-70-92 07:32:00 Test Item Value Reference Range Interpretation Comments MCH (test code = MCH) 31.4 pg 27.0-31.0 [facility]anoHxpfcqkOTCGTCVJZT6836-61-69 07:32:00 Test Item Value Reference Range Interpretation Comments Platelet (test code = Platelet) 242 133-450 [facility]anoUvjrjoiZAGLVOXHVH9873-77-56 07:32:00 Test Item Value Reference Range Interpretation Comments MPV (test code = MPV) 8.0 7.4-10.4 [facility]anoCkgkkczMUEKMYXSRV1262-85-91 07:32:00 Test Item Value Reference Range Interpretation Comments Hct (test code = Hct) 39.1 42.0-54.0 [facility]anoDohnwpwULPCDSHPHY8674-17-84 07:32:00 Test Item Value Reference Range Interpretation Comments Hgb (test code = Hgb) 13.2 14.0-18.0 [facility]anoEllitmmMEAJPWLVKK8917-55-44 07:32:00 Test Item Value Reference Range Interpretation Comments MCV (test code = MCV) 93.1 80.0-94.0 [facility]anoCvqyhzsCIYAECMMTR2549-44-58 07:32:00 Test Item Value Reference Range Interpretation Comments RBC (test code = RBC) 4.20 4.70-6.10 [facility]anoUwkufbbAJYNIUKYRR9989-96-59 07:32:00 Test Item Value Reference Range Interpretation Comments WBC (test code = WBC) 23.1 3.7-10.4 [facility]anoZuircztDIDRMMXZNI2841-83-62 07:32:00 Test Item Value Reference Range Interpretation Comments Eosinophils # (test code 0.1 See_Comment [A utomated message] The = Eosinophils #) system whic h generated this result tra nsmitted reference range : <=0.5. The reference r yadira was not used to int erpret this result as normal/abnormal . [facility]anoJuicujrOQZZGUABRW9716-52-51 07:32:00 Test Item Value Reference Range Interpretation Comments Segs-Bands # (test code = Segs-Bands #) 18.3 1.5-8.1 [facility]anoDgvahotRJYIJVOMSM1328-89-88 07:32:00 Test Item Value Reference Range Interpretation Comments Lymphocytes # (test code = Lymphocytes 2.6 1.0-5.5 #) [facility]anoTsocjahSQENVPHHLG0455-51-27 07:32:00 Test Item Value Reference Range Interpretation Comments Monocytes # (test code 2.1 See_Comment [Aut omated message] The = Monocytes #) system which generated this result tra nsmitted reference range : <=0.8. The reference r yadira was not used to int erpret this result as normal/abnormal . [facility]anoEsyfhrlJDMBHDQRDE0016-14-80 07:32:00 Test Item Value Reference Range Interpretation Comments Segs (test code = Segs) 79.1 45.0-75.0 [facility]anoEovqbzzZOPGZZYORS5737-64-96 07:32:00 Test Item Value Reference Range Interpretation Comments Lymphocytes (test code = Lymphocytes) 11.2 20.0-40.0 [facility]anoGtldgqjDMGIMWEIHT1028-26-91 07:32:00 Test Item Value Reference Range Interpretation Comments Eosinophils (test code = 0.4 See_Comment [A utomated message] The Eosinophils) system which ge nerated this result tra nsmitted reference range : <=4.0. The reference r yadira was not used to int erpret this result as normal/abnormal . [facility]anoSoaoofuPMRDGAPFVG6108-97-87 07:32:00 Test Item Value Reference Range Interpretation Comments Monocytes (test code = Monocytes) 9.1 2.0-12.0 [facility]anoLqgdxxxADEYHOIZHO5756-55-65 07:32:00 Test Item Value Reference Range Interpretation Comments Basophils (test code = 0.2 See_Comment [Aut omated message] The Basophils) system which ge nerated this result tra nsmitted reference range : <=1.0. The reference r yadira was not used to int erpret this result as normal/abnormal . [facility]RO[facility] OCZOLFU1977-68-44 07:32:00 Test Item Value Reference Range Interpretation Comments Ca Ion WB (test code = Ca Ion WB) 1.07 1.05-1.25 [facility]2017-06-21 07:32:00 Test Item Value Reference Range Interpretation Comments Ca Norm WB (test code = Ca Norm WB) 1.00 1.05-1.25 [facility]2017-06-21 07:32:00 Test Item Value Reference Range Interpretation Comments Phosphorus (test code = Phosphorus) 2.4 2.5-4.5 [facility]2017-06-21 07:32:00 Test Item Value Reference Range Interpretation Comments BUN (test code = BUN) 7 7-22 [facility]2017-06-21 07:32:00 Test Item Value Reference Range Interpretation Comments Glucose Lvl (test code = Glucose Lvl) 53 70-99 [facility]2017-06-21 07:32:00 Test Item Value Reference Range Interpretation Comments Sodium Lvl (test code = Sodium Lvl) 142 135-145 [facility]2017-06-21 07:32:00 Test Item Value Reference Range Interpretation Comments Creatinine Lvl (test code = Creatinine 0.89 0.50-1.40 Lvl) [facility]2017-06-21 07:32:00 Test Item Value Reference Range Interpretation Comments Potassium Lvl (test code = Potassium 3.0 3.5-5.1 Lvl) [facility]2017-06-21 07:32:00 Test Item Value Reference Range Interpretation Comments Chloride Lvl (test code = Chloride Lvl) 111 95-109 [facility]2017-06-21 07:32:00 Test Item Value Reference Range Interpretation Comments eGFR (test code = eGFR) 117 [facility]2017-06-21 07:32:00 Test Item Value Reference Range Interpretation Comments CO2 (test code = CO2) 17 24-32 [facility]2017-06-21 07:32:00 Test Item Value Reference Range Interpretation Comments Calcium Lvl (test code = Calcium Lvl) 8.4 8.5-10.5 [facility]2017-06-21 07:32:00 Test Item Value Reference Range Interpretation Comments AGAP (test code = AGAP) 17.0 10.0-20.0 [facility]2017-06-21 07:32:00 Test Item Value Reference Range Interpretation Comments Magnesium Lvl (test code = Magnesium 2.3 1.8-2.4 Lvl) [facility]anoBgdcptzJQYNEYZLKN9285-92-93 07:32:00 Test Item Value Reference Range Interpretation Comments MCHC (test code = MCHC) 33.8 32.0-36.0 [facility]anoQscpvmfEPJQSCFIEL5671-48-40 07:32:00 Test Item Value Reference Range Interpretation Comments RDW (test code = RDW) 13.5 11.5-14.5 [facility]anoOjleikiHRZVLFQTUV5962-41-32 07:32:00 Test Item Value Reference Range Interpretation Comments MCH (test code = MCH) 31.4 pg 27.0-31.0 [facility]anoCyufordCMRATKGVIP5797-77-19 07:32:00 Test Item Value Reference Range Interpretation Comments Platelet (test code = Platelet) 242 133-450 [facility]anoWkzgfsgQBPUXQOIQJ5229-37-54 07:32:00 Test Item Value Reference Range Interpretation Comments MPV (test code = MPV) 8.0 7.4-10.4 [facility]anoGxzxfuvWIBPTOPUCC6243-29-73 07:32:00 Test Item Value Reference Range Interpretation Comments Hct (test code = Hct) 39.1 42.0-54.0 [facility]anoKwsaaqbOBLJKDFFHF4677-20-08 07:32:00 Test Item Value Reference Range Interpretation Comments Hgb (test code = Hgb) 13.2 14.0-18.0 [facility]anoXymcbzdFNMXVZPRYQ5405-46-75 07:32:00 Test Item Value Reference Range Interpretation Comments MCV (test code = MCV) 93.1 80.0-94.0 [facility]anoFszizfuLOFQIFHGXQ3615-08-44 07:32:00 Test Item Value Reference Range Interpretation Comments RBC (test code = RBC) 4.20 4.70-6.10 [facility]anoEioamikPTYPVTDQII6765-26-86 07:32:00 Test Item Value Reference Range Interpretation Comments WBC (test code = WBC) 23.1 3.7-10.4 [facility]anoVhsbjdyGLSFNZXMYE4553-90-39 07:32:00 Test Item Value Reference Range Interpretation Comments Eosinophils # (test code 0.1 See_Comment [A utomated message] The = Eosinophils #) system whic h generated this result tra nsmitted reference range : <=0.5. The reference r yadira was not used to int erpret this result as normal/abnormal . [facility]anoWxdpitjRSQWBVFBJL8499-59-44 07:32:00 Test Item Value Reference Range Interpretation Comments Segs-Bands # (test code = Segs-Bands #) 18.3 1.5-8.1 [facility]anoGkqntslEEHZWVZOIV6015-69-46 07:32:00 Test Item Value Reference Range Interpretation Comments Lymphocytes # (test code = Lymphocytes 2.6 1.0-5.5 #) [facility]anoHvizzjyURJCAUKDSC4616-92-88 07:32:00 Test Item Value Reference Range Interpretation Comments Monocytes # (test code 2.1 See_Comment [Aut omated message] The = Monocytes #) system which generated this result tra nsmitted reference range : <=0.8. The reference r yadira was not used to int erpret this result as normal/abnormal . [facility]anoPxcnjecYCUXVORRXQ5149-44-37 07:32:00 Test Item Value Reference Range Interpretation Comments Segs (test code = Segs) 79.1 45.0-75.0 [facility]anoJykrejqQNFUJMSPIT2505-23-57 07:32:00 Test Item Value Reference Range Interpretation Comments Lymphocytes (test code = Lymphocytes) 11.2 20.0-40.0 [facility]anoKvvlxcfSUYLLIKHYC2679-96-79 07:32:00 Test Item Value Reference Range Interpretation Comments Eosinophils (test code = 0.4 See_Comment [A utomated message] The Eosinophils) system which ge nerated this result tra nsmitted reference range : <=4.0. The reference r yadira was not used to int erpret this result as normal/abnormal . [facility]anoKllcxydMYSCVVFQXV7382-92-15 07:32:00 Test Item Value Reference Range Interpretation Comments Monocytes (test code = Monocytes) 9.1 2.0-12.0 [facility]anoLsrhsejPRDGRGPPBH7418-14-55 07:32:00 Test Item Value Reference Range Interpretation Comments Basophils (test code = 0.2 See_Comment [Aut omated message] The Basophils) system which ge nerated this result tra nsmitted reference range : <=1.0. The reference r yadira was not used to int erpret this result as normal/abnormal . [facility]ROID RRORYWL2409-24-51 07:32:00 Test Item Value Reference Range Interpretation Comments Ca Ion WB (test code = Ca Ion WB) 1.07 1.05-1.25 [facility]2017-06-21 07:32:00 Test Item Value Reference Range Interpretation Comments Ca Norm WB (test code = Ca Norm WB) 1.00 1.05-1.25 [facility]2017-06-21 07:32:00 Test Item Value Reference Range Interpretation Comments Phosphorus (test code = Phosphorus) 2.4 2.5-4.5 [facility]2017-06-21 07:32:00 Test Item Value Reference Range Interpretation Comments BUN (test code = BUN) 7 7-22 [facility]2017-06-21 07:32:00 Test Item Value Reference Range Interpretation Comments Glucose Lvl (test code = Glucose Lvl) 53 70-99 [facility]2017-06-21 07:32:00 Test Item Value Reference Range Interpretation Comments Sodium Lvl (test code = Sodium Lvl) 142 135-145 [facility]2017-06-21 07:32:00 Test Item Value Reference Range Interpretation Comments Creatinine Lvl (test code = Creatinine 0.89 0.50-1.40 Lvl) [facility]2017-06-21 07:32:00 Test Item Value Reference Range Interpretation Comments Potassium Lvl (test code = Potassium 3.0 3.5-5.1 Lvl) [facility]2017-06-21 07:32:00 Test Item Value Reference Range Interpretation Comments Chloride Lvl (test code = Chloride Lvl) 111 95-109 [facility]2017-06-21 07:32:00 Test Item Value Reference Range Interpretation Comments eGFR (test code = eGFR) 117 [facility]2017-06-21 07:32:00 Test Item Value Reference Range Interpretation Comments CO2 (test code = CO2) 17 24-32 [facility]2017-06-21 07:32:00 Test Item Value Reference Range Interpretation Comments Calcium Lvl (test code = Calcium Lvl) 8.4 8.5-10.5 [facility]2017-06-21 07:32:00 Test Item Value Reference Range Interpretation Comments AGAP (test code = AGAP) 17.0 10.0-20.0 [facility]2017-06-21 07:32:00 Test Item Value Reference Range Interpretation Comments Magnesium Lvl (test code = Magnesium 2.3 1.8-2.4 Lvl) [facility]anoXxzgdlhGDBNBSGMRS5018-05-19 07:32:00 Test Item Value Reference Range Interpretation Comments MCHC (test code = MCHC) 33.8 32.0-36.0 [facility]anoCezjwejJMCHJDTOSG7048-37-71 07:32:00 Test Item Value Reference Range Interpretation Comments RDW (test code = RDW) 13.5 11.5-14.5 [facility]anoViqpnkbSKNSQTWQES0461-50-72 07:32:00 Test Item Value Reference Range Interpretation Comments MCH (test code = MCH) 31.4 pg 27.0-31.0 [facility]anoYwrdgohKFWPVWNTUG1634-78-48 07:32:00 Test Item Value Reference Range Interpretation Comments Platelet (test code = Platelet) 242 133-450 [facility]anoAxxsupbYVRSGOLIBP0866-19-24 07:32:00 Test Item Value Reference Range Interpretation Comments MPV (test code = MPV) 8.0 7.4-10.4 [facility]anoJtauvlyRDMYFXGIEK6391-36-63 07:32:00 Test Item Value Reference Range Interpretation Comments Hct (test code = Hct) 39.1 42.0-54.0 [facility]anoYnopazoGXAHPVGHJM0554-16-57 07:32:00 Test Item Value Reference Range Interpretation Comments Hgb (test code = Hgb) 13.2 14.0-18.0 [facility]anoDjjthbsECHCWYHGRM2668-86-41 07:32:00 Test Item Value Reference Range Interpretation Comments MCV (test code = MCV) 93.1 80.0-94.0 [facility]anoMjaqshtMMTUUKOIOX6940-52-73 07:32:00 Test Item Value Reference Range Interpretation Comments RBC (test code = RBC) 4.20 4.70-6.10 [facility]anoHgamkymIYOHIFISKL7958-17-49 07:32:00 Test Item Value Reference Range Interpretation Comments WBC (test code = WBC) 23.1 3.7-10.4 [facility]anoXhggrmtUBNSDGWNHA1484-58-09 07:32:00 Test Item Value Reference Range Interpretation Comments Eosinophils # (test code 0.1 See_Comment [A utomated message] The = Eosinophils #) system whic h generated this result tra nsmitted reference range : <=0.5. The reference r yadira was not used to int erpret this result as normal/abnormal . [facility]anoSflaqplXBDOJBNCNL2317-29-84 07:32:00 Test Item Value Reference Range Interpretation Comments Segs-Bands # (test code = Segs-Bands #) 18.3 1.5-8.1 [facility]anoMtkxtcoBMKYHZZGYF0567-16-97 07:32:00 Test Item Value Reference Range Interpretation Comments Lymphocytes # (test code = Lymphocytes 2.6 1.0-5.5 #) [facility]anoUzvvtbdAQPDJMHJUA9033-76-98 07:32:00 Test Item Value Reference Range Interpretation Comments Monocytes # (test code 2.1 See_Comment [Aut omated message] The = Monocytes #) system which generated this result tra nsmitted reference range : <=0.8. The reference r yadira was not used to int erpret this result as normal/abnormal . [facility]anoHavytyvHQTCWNVDFU5443-67-87 07:32:00 Test Item Value Reference Range Interpretation Comments Segs (test code = Segs) 79.1 45.0-75.0 [facility]anoEokmnvgDBQLHXYPKL8106-75-85 07:32:00 Test Item Value Reference Range Interpretation Comments Lymphocytes (test code = Lymphocytes) 11.2 20.0-40.0 [facility]anoQzdzbkiSHYEGDLXYE2650-56-68 07:32:00 Test Item Value Reference Range Interpretation Comments Eosinophils (test code = 0.4 See_Comment [A utomated message] The Eosinophils) system which ge nerated this result tra nsmitted reference range : <=4.0. The reference r yadira was not used to int erpret this result as normal/abnormal . [facility]anoBlfubraRZIJVFXBFB0466-97-51 07:32:00 Test Item Value Reference Range Interpretation Comments Monocytes (test code = Monocytes) 9.1 2.0-12.0 [facility]anoParcvxbNUGNPZKXNR0874-39-09 07:32:00 Test Item Value Reference Range Interpretation Comments Basophils (test code = 0.2 See_Comment [Aut omated message] The Basophils) system which ge nerated this result tra nsmitted reference range : <=1.0. The reference r yadira was not used to int erpret this result as normal/abnormal . [facility]RO[facility] ZYBKSPQ4494-50-01 07:32:00 Test Item Value Reference Range Interpretation Comments Ca Ion WB (test code = Ca Ion WB) 1.07 1.05-1.25 [facility]2017-06-21 07:32:00 Test Item Value Reference Range Interpretation Comments Ca Norm WB (test code = Ca Norm WB) 1.00 1.05-1.25 [facility]2017-06-21 07:32:00 Test Item Value Reference Range Interpretation Comments Phosphorus (test code = Phosphorus) 2.4 2.5-4.5 [facility]2017-06-21 07:32:00 Test Item Value Reference Range Interpretation Comments BUN (test code = BUN) 7 7-22 [facility]2017-06-21 07:32:00 Test Item Value Reference Range Interpretation Comments Glucose Lvl (test code = Glucose Lvl) 53 70-99 [facility]2017-06-21 07:32:00 Test Item Value Reference Range Interpretation Comments Sodium Lvl (test code = Sodium Lvl) 142 135-145 [facility]2017-06-21 07:32:00 Test Item Value Reference Range Interpretation Comments Creatinine Lvl (test code = Creatinine 0.89 0.50-1.40 Lvl) [facility]2017-06-21 07:32:00 Test Item Value Reference Range Interpretation Comments Potassium Lvl (test code = Potassium 3.0 3.5-5.1 Lvl) [facility]2017-06-21 07:32:00 Test Item Value Reference Range Interpretation Comments Chloride Lvl (test code = Chloride Lvl) 111 95-109 [facility]2017-06-21 07:32:00 Test Item Value Reference Range Interpretation Comments eGFR (test code = eGFR) 117 [facility]2017-06-21 07:32:00 Test Item Value Reference Range Interpretation Comments CO2 (test code = CO2) 17 24-32 [facility]2017-06-21 07:32:00 Test Item Value Reference Range Interpretation Comments Calcium Lvl (test code = Calcium Lvl) 8.4 8.5-10.5 [facility]2017-06-21 07:32:00 Test Item Value Reference Range Interpretation Comments AGAP (test code = AGAP) 17.0 10.0-20.0 [facility]2017-06-21 07:32:00 Test Item Value Reference Range Interpretation Comments Magnesium Lvl (test code = Magnesium 2.3 1.8-2.4 Lvl) [facility]anoCkgxhcwMNSYYSVZTO4103-19-78 07:32:00 Test Item Value Reference Range Interpretation Comments MCHC (test code = MCHC) 33.8 32.0-36.0 [facility]anoXtxwftjWXMMBGGBJQ4644-60-22 07:32:00 Test Item Value Reference Range Interpretation Comments RDW (test code = RDW) 13.5 11.5-14.5 [facility]anoKefaqqcCFWJQCUMNQ1542-51-85 07:32:00 Test Item Value Reference Range Interpretation Comments MCH (test code = MCH) 31.4 pg 27.0-31.0 [facility]anoRzajkczPGHYGUVDRK6095-52-75 07:32:00 Test Item Value Reference Range Interpretation Comments Platelet (test code = Platelet) 242 133-450 [facility]anoIifsuvtOZYDHHHDUW3663-67-88 07:32:00 Test Item Value Reference Range Interpretation Comments MPV (test code = MPV) 8.0 7.4-10.4 [facility]anoJwzbsixEYALUXYHPH9273-77-48 07:32:00 Test Item Value Reference Range Interpretation Comments Hct (test code = Hct) 39.1 42.0-54.0 [facility]anoMsjfberGEASYIKXFQ0917-05-66 07:32:00 Test Item Value Reference Range Interpretation Comments Hgb (test code = Hgb) 13.2 14.0-18.0 [facility]anoGiusrkoWFNTUUBSWU5725-89-22 07:32:00 Test Item Value Reference Range Interpretation Comments MCV (test code = MCV) 93.1 80.0-94.0 [facility]anoCmcppgyNCZPFWMJEY0967-18-90 07:32:00 Test Item Value Reference Range Interpretation Comments RBC (test code = RBC) 4.20 4.70-6.10 [facility]anoLwslsuhCIWZOTLUWE0358-48-11 07:32:00 Test Item Value Reference Range Interpretation Comments WBC (test code = WBC) 23.1 3.7-10.4 [facility]anoQeiljmvHGUUGHQTRF4069-39-97 07:32:00 Test Item Value Reference Range Interpretation Comments Eosinophils # (test code 0.1 See_Comment [A utomated message] The = Eosinophils #) system whic h generated this result tra nsmitted reference range : <=0.5. The reference r yadira was not used to int erpret this result as normal/abnormal . [facility]anoAcapqhqNHIRANKHMO7503-28-70 07:32:00 Test Item Value Reference Range Interpretation Comments Segs-Bands # (test code = Segs-Bands #) 18.3 1.5-8.1 [facility]anoCmevomnLEKQXSVFGS8562-40-37 07:32:00 Test Item Value Reference Range Interpretation Comments Lymphocytes # (test code = Lymphocytes 2.6 1.0-5.5 #) [facility]anoUcsrikgXQUPWBBUHN9695-34-41 07:32:00 Test Item Value Reference Range Interpretation Comments Monocytes # (test code 2.1 See_Comment [Aut omated message] The = Monocytes #) system which generated this result tra nsmitted reference range : <=0.8. The reference r yadira was not used to int erpret this result as normal/abnormal . [facility]anoGpqyiamSPLYESYMOI7878-08-68 07:32:00 Test Item Value Reference Range Interpretation Comments Segs (test code = Segs) 79.1 45.0-75.0 [facility]anoCgxdyvaSJNECJJUSH0885-99-39 07:32:00 Test Item Value Reference Range Interpretation Comments Lymphocytes (test code = Lymphocytes) 11.2 20.0-40.0 [facility]anoNimheycSEVJTBBQLH3685-71-98 07:32:00 Test Item Value Reference Range Interpretation Comments Eosinophils (test code = 0.4 See_Comment [A utomated message] The Eosinophils) system which ge nerated this result tra nsmitted reference range : <=4.0. The reference r yadira was not used to int erpret this result as normal/abnormal . [facility] PlanoAcokozwVHKQLWXZCJ1537-14-56 07:32:00 Test Item Value Reference Range Interpretation Comments Monocytes (test code = Monocytes) 9.1 2.0-12.0 [facility]anoXztjpqwRUXSQYOUIE9505-32-34 07:32:00 Test Item Value Reference Range Interpretation Comments Basophils (test code = 0.2 See_Comment [Aut omated message] The Basophils) system which ge nerated this result tra nsmitted reference range : <=1.0. The reference r yadira was not used to int erpret this result as normal/abnormal . [facility]ATHYRO[facility] [id number] 07:32:00 Test Item Value Reference Range Interpretation Comments Ca Ion WB (test code = Ca Ion WB) 1.07 1.05-1.25 [facility] [id number] 07:32:00 Test Item Value Reference Range Interpretation Comments Ca Norm WB (test code = Ca Norm WB) 1.00 1.05-1.25 [facility]2017-06-21 07:32:00 Test Item Value Reference Range Interpretation Comments Phosphorus (test code = Phosphorus) 2.4 2.5-4.5 [facility]2017-06-21 07:32:00 Test Item Value Reference Range Interpretation Comments BUN (test code = BUN) 7 7-22 [facility]2017-06-21 07:32:00 Test Item Value Reference Range Interpretation Comments Glucose Lvl (test code = Glucose Lvl) 53 70-99 [facility]2017-06-21 07:32:00 Test Item Value Reference Range Interpretation Comments Sodium Lvl (test code = Sodium Lvl) 142 135-145 [facility]2017-06-21 07:32:00 Test Item Value Reference Range Interpretation Comments Creatinine Lvl (test code = Creatinine 0.89 0.50-1.40 Lvl) [place] 933247-06-21 07:32:00 Test Item Value Reference Range Interpretation Comments Potassium Lvl (test code = Potassium 3.0 3.5-5.1 Lvl) [facility]2017-06-21 07:32:00 Test Item Value Reference Range Interpretation Comments Chloride Lvl (test code = Chloride Lvl) 111 95-109 [facility]2017-06-21 07:32:00 Test Item Value Reference Range Interpretation Comments eGFR (test code = eGFR) 117 [facility]2017-06-21 07:32:00 Test Item Value Reference Range Interpretation Comments CO2 (test code = CO2) 17 24-32 [facility]2017-06-21 07:32:00 Test Item Value Reference Range Interpretation Comments Calcium Lvl (test code = Calcium Lvl) 8.4 8.5-10.5 [facility]2017-06-21 07:32:00 Test Item Value Reference Range Interpretation Comments AGAP (test code = AGAP) 17.0 10.0-20.0 [facility]2017-06-21 07:32:00 Test Item Value Reference Range Interpretation Comments Magnesium Lvl (test code = Magnesium 2.3 1.8-2.4 Lvl) [facility]LuoejoyLCTLJUXRFO6239-78-12 07:32:00 Test Item Value Reference Range Interpretation Comments MCHC (test code = MCHC) 33.8 32.0-36.0 [facility]anoFtpizosXODBUIYTZJ6699-02-09 07:32:00 Test Item Value Reference Range Interpretation Comments RDW (test code = RDW) 13.5 11.5-14.5 [facility]anoQpsjapxKMHQSHWVSZ1477-73-41 07:32:00 Test Item Value Reference Range Interpretation Comments MCH (test code = MCH) 31.4 pg 27.0-31.0 [facility]anoFmsimdgEUQGFPFPRL2412-25-55 07:32:00 Test Item Value Reference Range Interpretation Comments Platelet (test code = Platelet) 242 133-450 [facility]anoQsiwjmoXDIEDDKCPP9015-91-48 07:32:00 Test Item Value Reference Range Interpretation Comments MPV (test code = MPV) 8.0 7.4-10.4 [facility]anoKydxnbqOYKATZAQKN9586-32-35 07:32:00 Test Item Value Reference Range Interpretation Comments Hct (test code = Hct) 39.1 42.0-54.0 [facility]anoTriabinUOFYKZIEBX0246-19-31 07:32:00 Test Item Value Reference Range Interpretation Comments Hgb (test code = Hgb) 13.2 14.0-18.0 [facility]anoWygvydzRNRCDVEVBA2915-34-53 07:32:00 Test Item Value Reference Range Interpretation Comments MCV (test code = MCV) 93.1 80.0-94.0 [facility]anoZxryneiFMQSKOETGB4493-76-05 07:32:00 Test Item Value Reference Range Interpretation Comments RBC (test code = RBC) 4.20 4.70-6.10 [facility]anoNmmivqvJIOAYCVWSZ6104-32-89 07:32:00 Test Item Value Reference Range Interpretation Comments WBC (test code = WBC) 23.1 3.7-10.4 [facility]anoHmwbhjvRPMYUSFSKH0942-13-71 07:32:00 Test Item Value Reference Range Interpretation Comments Eosinophils # (test code 0.1 See_Comment [A utomated message] The = Eosinophils #) system whic h generated this result tra nsmitted reference range : <=0.5. The reference r yadira was not used to int erpret this result as normal/abnormal . [facility]anoJfqimfoBNCISEXKMP8125-67-09 07:32:00 Test Item Value Reference Range Interpretation Comments Segs-Bands # (test code = Segs-Bands #) 18.3 1.5-8.1 [facility]anoUrplfpeSPZRBYDPRJ9680-87-01 07:32:00 Test Item Value Reference Range Interpretation Comments Lymphocytes # (test code = Lymphocytes 2.6 1.0-5.5 #) [facility]anoQactjrgCKRIMIBAWQ9581-34-30 07:32:00 Test Item Value Reference Range Interpretation Comments Monocytes # (test code 2.1 See_Comment [Aut omated message] The = Monocytes #) system which generated this result tra nsmitted reference range : <=0.8. The reference r yadira was not used to int erpret this result as normal/abnormal . [facility]anoXxvfhhnTXOJRCLHOT0292-20-76 07:32:00 Test Item Value Reference Range Interpretation Comments Segs (test code = Segs) 79.1 45.0-75.0 [facility]anoJamvqeiQBURGLLGBC6442-46-64 07:32:00 Test Item Value Reference Range Interpretation Comments Lymphocytes (test code = Lymphocytes) 11.2 20.0-40.0 [facility]anoEmveeedWGUZYVHSML8918-03-82 07:32:00 Test Item Value Reference Range Interpretation Comments Eosinophils (test code = 0.4 See_Comment [A utomated message] The Eosinophils) system which ge nerated this result tra nsmitted reference range : <=4.0. The reference r yadira was not used to int erpret this result as normal/abnormal . [facility]anoNecgpsgZVNNVYEQIN3678-78-35 07:32:00 Test Item Value Reference Range Interpretation Comments Monocytes (test code = Monocytes) 9.1 2.0-12.0 [facility]anoNhplkytYCUEFYUVNL8500-02-05 07:32:00 Test Item Value Reference Range Interpretation Comments Basophils (test code = 0.2 See_Comment [Aut omated message] The Basophils) system which ge nerated this result tra nsmitted reference range : <=1.0. The reference r yadira was not used to int erpret this result as normal/abnormal . [facility] GBRVFXA3415-02-56 07:32:00 Test Item Value Reference Range Interpretation Comments Ca Ion WB (test code = Ca Ion WB) 1.07 1.05-1.25 [facility]RO[facility] QTKWYDZ3893-24-53 07:32:00 Test Item Value Reference Range Interpretation Comments Ca Norm WB (test code = Ca Norm WB) 1.00 1.05-1.25 [facility]2017-06-21 07:32:00 Test Item Value Reference Range Interpretation Comments Phosphorus (test code = Phosphorus) 2.4 2.5-4.5 [facility]2017-06-21 07:32:00 Test Item Value Reference Range Interpretation Comments BUN (test code = BUN) 7 7-22 [facility]2017-06-21 07:32:00 Test Item Value Reference Range Interpretation Comments Glucose Lvl (test code = Glucose Lvl) 53 70-99 [facility]2017-06-21 07:32:00 Test Item Value Reference Range Interpretation Comments Sodium Lvl (test code = Sodium Lvl) 142 135-145 [facility]2017-06-21 07:32:00 Test Item Value Reference Range Interpretation Comments Creatinine Lvl (test code = Creatinine 0.89 0.50-1.40 Lvl) [facility]2017-06-21 07:32:00 Test Item Value Reference Range Interpretation Comments Potassium Lvl (test code = Potassium 3.0 3.5-5.1 Lvl) [facility]2017-06-21 07:32:00 Test Item Value Reference Range Interpretation Comments Chloride Lvl (test code = Chloride Lvl) 111 95-109 [facility]2017-06-21 07:32:00 Test Item Value Reference Range Interpretation Comments eGFR (test code = eGFR) 117 [facility]2017-06-21 07:32:00 Test Item Value Reference Range Interpretation Comments CO2 (test code = CO2) 17 24-32 [facility]2017-06-21 07:32:00 Test Item Value Reference Range Interpretation Comments Calcium Lvl (test code = Calcium Lvl) 8.4 8.5-10.5 [facility]2017-06-21 07:32:00 Test Item Value Reference Range Interpretation Comments AGAP (test code = AGAP) 17.0 10.0-20.0 [facility]2017-06-21 07:32:00 Test Item Value Reference Range Interpretation Comments Magnesium Lvl (test code = Magnesium 2.3 1.8-2.4 Lvl) [facility]anoWsvgclxSFABOGBGJZ5285-95-79 07:32:00 Test Item Value Reference Range Interpretation Comments MCHC (test code = MCHC) 33.8 32.0-36.0 [facility]anoKfuhcilYHPRCEQGFT4990-05-51 07:32:00 Test Item Value Reference Range Interpretation Comments RDW (test code = RDW) 13.5 11.5-14.5 [facility]anoKfxhkcyJMVZYGIQSI8818-30-82 07:32:00 Test Item Value Reference Range Interpretation Comments MCH (test code = MCH) 31.4 pg 27.0-31.0 [facility]anoTlnudqgOESDCERPKM4997-33-67 07:32:00 Test Item Value Reference Range Interpretation Comments Platelet (test code = Platelet) 242 133-450 [facility] PlanoIgolixxLWGUZSLGMS1345-36-80 07:32:00 Test Item Value Reference Range Interpretation Comments MPV (test code = MPV) 8.0 7.4-10.4 [facility]anoVnqpedxTEWDRKELBJ8228-06-23 07:32:00 Test Item Value Reference Range Interpretation Comments Hct (test code = Hct) 39.1 42.0-54.0 [facility]anoQgbsfyySMTLWYNWTM4383-71-42 07:32:00 Test Item Value Reference Range Interpretation Comments Hgb (test code = Hgb) 13.2 14.0-18.0 [facility]anoCabvfrwNOZDQGZWFB2785-99-67 07:32:00 Test Item Value Reference Range Interpretation Comments MCV (test code = MCV) 93.1 80.0-94.0 [facility]anoNdbxibfDUNWIPHICA2534-68-04 07:32:00 Test Item Value Reference Range Interpretation Comments RBC (test code = RBC) 4.20 4.70-6.10 [facility]anoWqjqwxvMEMCZOVQAA2744-26-83 07:32:00 Test Item Value Reference Range Interpretation Comments WBC (test code = WBC) 23.1 3.7-10.4 [facility]anoSmedecfTJNWROMLQL7006-86-04 07:32:00 Test Item Value Reference Range Interpretation Comments Eosinophils # (test code 0.1 See_Comment [A utomated message] The = Eosinophils #) system whic h generated this result tra nsmitted reference range : <=0.5. The reference r yadira was not used to int erpret this result as normal/abnormal . [facility]anoTdqovgzSTCRFNOBZV3601-86-38 07:32:00 Test Item Value Reference Range Interpretation Comments Segs-Bands # (test code = Segs-Bands #) 18.3 1.5-8.1 [facility]anoSxkzkrhVEARWZLFYI3771-21-08 07:32:00 Test Item Value Reference Range Interpretation Comments Lymphocytes # (test code = Lymphocytes 2.6 1.0-5.5 #) [facility]anoDwxwcmnHTSBBAUPCI9754-48-38 07:32:00 Test Item Value Reference Range Interpretation Comments Monocytes # (test code 2.1 See_Comment [Aut omated message] The = Monocytes #) system which generated this result tra nsmitted reference range : <=0.8. The reference r yadira was not used to int erpret this result as normal/abnormal . [facility]anoKmbqwrmXWSKIYVVQU6166-13-58 07:32:00 Test Item Value Reference Range Interpretation Comments Segs (test code = Segs) 79.1 45.0-75.0 [facility]anoJpbuxpaVYTRSHWJNW9186-61-52 07:32:00 Test Item Value Reference Range Interpretation Comments Lymphocytes (test code = Lymphocytes) 11.2 20.0-40.0 [facility]anoWlivwgaGDECNBFWEH9978-39-82 07:32:00 Test Item Value Reference Range Interpretation Comments Eosinophils (test code = 0.4 See_Comment [A utomated message] The Eosinophils) system which ge nerated this result tra nsmitted reference range : <=4.0. The reference r yadira was not used to int erpret this result as normal/abnormal . [facility]anoOudyjbhQPRCCRUNQD8697-72-61 07:32:00 Test Item Value Reference Range Interpretation Comments Monocytes (test code = Monocytes) 9.1 2.0-12.0 [facility]anoPogdesnQKWOQCBSVN4886-31-63 07:32:00 Test Item Value Reference Range Interpretation Comments Basophils (test code = 0.2 See_Comment [Aut omated message] The Basophils) system which ge nerated this result tra nsmitted reference range : <=1.0. The reference r yadira was not used to int erpret this result as normal/abnormal . [facility]annPARATHYROID NGZEHZD1324-22-04 07:32:00 Test Item Value Reference Range Interpretation Comments Ca Ion WB (test code = Ca Ion WB) 1.07 1.05-1.25 [facility] MWUKZBV9967-46-45 07:32:00 Test Item Value Reference Range Interpretation Comments Ca Norm WB (test code = Ca Norm WB) 1.00 1.05-1.25 [facility]CHE[facility] AFLUV8549-45-01 22:47:00 Test Item Value Reference Range Interpretation Comments Phosphorus (test code = Phosphorus) 2.4 2.5-4.5 [facility]CHE[facility] [id number] 22:47:00 Test Item Value Reference Range Interpretation Comments Magnesium Lvl (test code = Magnesium 1.9 1.8-2.4 Lvl) [facility]rep[facility]yBKKYRGEXQSFF6266-[facility]-21 22:47:00 Test Item Value Reference Range Interpretation Comments AGAP (test code = AGAP) 14.8 10.0-20.0 [facility] HospitalCwqupiqCWQEITHGMVKT4942-60-70 22:47:00 Test Item Value Reference Range Interpretation Comments eGFR (test code = eGFR) 95 [facility] HospitalErkfnriLYCMLWEXPESJ5179-67-16 22:47:00 Test Item Value Reference Range Interpretation Comments Calcium Lvl (test code = Calcium Lvl) 7.3 8.5-10.5 [facility] HospitalMqvdnguEVIDAVBAHXDQ0900-53-07 22:47:00 Test Item Value Reference Range Interpretation Comments Chloride Lvl (test code = Chloride Lvl) 110 95-109 [facility] HospitalKpxzqozUJBTLMFQJEOD8571-05-94 22:47:00 Test Item Value Reference Range Interpretation Comments Glucose Lvl (test code = Glucose Lvl) 77 70-99 [facility] HospitalPhzjhfhFNHGJWDGHJCL8379-38-62 22:47:00 Test Item Value Reference Range Interpretation Comments Creatinine Lvl (test code = Creatinine 1.07 0.50-1.40 Lvl) [facility] HospitalOzfgvkvKXQHAOJIXQJB7426-36-27 22:47:00 Test Item Value Reference Range Interpretation Comments BUN (test code = BUN) 7 7-22 [facility] HospitalJaoiaxiXYFUHNAWSOEO6635-24-73 22:47:00 Test Item Value Reference Range Interpretation Comments Sodium Lvl (test code = Sodium Lvl) 141 135-145 [facility] HospitalOakjujpFQENGCRXWVRV8913-53-97 22:47:00 Test Item Value Reference Range Interpretation Comments CO2 (test code = CO2) 20 24-32 [facility]anoIqsbytoFHOHBZGZFK6871-56-69 22:47:00 Test Item Value Reference Range Interpretation Comments WBC (test code = WBC) 26.3 3.7-10.4 [facility]anoVaivxtjLSUFDJLJHY6737-24-35 22:47:00 Test Item Value Reference Range Interpretation Comments Platelet (test code = Platelet) 209 133-450 [facility]anoMypkggbKETUMPXJFY9767-95-11 22:47:00 Test Item Value Reference Range Interpretation Comments RDW (test code = RDW) 13.5 11.5-14.5 [facility]anoJvgcndsCUHEBPQJRO6997-06-82 22:47:00 Test Item Value Reference Range Interpretation Comments Hct (test code = Hct) 39.5 42.0-54.0 [facility]anoEmacncgPFLRSAIMPD0840-52-76 22:47:00 Test Item Value Reference Range Interpretation Comments MPV (test code = MPV) 8.1 7.4-10.4 [facility]anoFjdhimoYOCSTIJZNF2850-38-23 22:47:00 Test Item Value Reference Range Interpretation Comments MCHC (test code = MCHC) 33.2 32.0-36.0 [facility]anoGmtdxlvBXGFWEJYVW3352-87-79 22:47:00 Test Item Value Reference Range Interpretation Comments Hgb (test code = Hgb) 13.1 14.0-18.0 [facility]anoNupkgnfMYCNTOCTFM2714-36-19 22:47:00 Test Item Value Reference Range Interpretation Comments RBC (test code = RBC) 4.25 4.70-6.10 [facility] PlanoLsdetsqVUFPZXEUUY2238-74-27 22:47:00 Test Item Value Reference Range Interpretation Comments MCH (test code = MCH) 30.9 pg 27.0-31.0 [facility] PlanoGneydogGPULTQPLGY5510-46-37 22:47:00 Test Item Value Reference Range Interpretation Comments MCV (test code = MCV) 92.8 80.0-94.0 [facility]anoAanpoelFOWAGCHWYD2733-74-08 22:47:00 Test Item Value Reference Range Interpretation Comments Monocytes (test code = Monocytes) 7.6 2.0-12.0 [facility]anoFtwirzmWPUXXVABEA1212-34-15 22:47:00 Test Item Value Reference Range Interpretation Comments Lymphocytes (test code = Lymphocytes) 7.7 20.0-40.0 [facility] PlanoWynocahBVYACMNESN5256-18-44 22:47:00 Test Item Value Reference Range Interpretation Comments Basophils (test code = 0.2 See_Comment [Aut omated message] The Basophils) system which ge nerated this result tra nsmitted reference range : <=1.0. The reference r yadira was not used to int erpret this result as normal/abnormal . [facility] PlanoQlylmfwOCUUETBWQM6424-80-31 22:47:00 Test Item Value Reference Range Interpretation Comments Segs-Bands # (test code = Segs-Bands #) 22.2 1.5-8.1 [facility]anoYxtuhwnZLGCKHMHHG5950-05-41 22:47:00 Test Item Value Reference Range Interpretation Comments Monocytes # (test code 2.0 See_Comment [Aut omated message] The = Monocytes #) system which generated this result tra nsmitted reference range : <=0.8. The reference r yadira was not used to int erpret this result as normal/abnormal . [facility] PlanoYugbuayASGBZVHPKS1049-35-78 22:47:00 Test Item Value Reference Range Interpretation Comments Lymphocytes # (test code = Lymphocytes 2.0 1.0-5.5 #) [facility]anoDsdczgdLLOKQMSPYS3666-58-79 22:47:00 Test Item Value Reference Range Interpretation Comments Basophils # (test code 0.1 See_Comment [Aut omated message] The = Basophils #) system which generated this result tra nsmitted reference range : <=0.2. The reference r yadira was not used to int erpret this result as normal/abnormal . [facility] HospitalWyptnavSFPFDUGBFL3425-51-14 22:47:00 Test Item Value Reference Range Interpretation Comments Segs (test code = Segs) 84.5 45.0-75.0 [facility]ATH[facility] CMMCFOE8443-50-91 22:47:00 Test Item Value Reference Range Interpretation Comments Ca Norm WB (test code = Ca Norm WB) 0.99 1.05-1.25 [facility]RO[facility] DDCNMAL9267-05-38 22:47:00 Test Item Value Reference Range Interpretation Comments Ca Ion WB (test code = Ca Ion WB) 1.04 1.05-1.25 [facility]CHE[facility] CONLY2826-80-62 22:47:00 Test Item Value Reference Range Interpretation Comments Phosphorus (test code = Phosphorus) 2.4 2.5-4.5 [facility]CHE[facility] CJSDP8036-22-57 22:47:00 Test Item Value Reference Range Interpretation Comments Magnesium Lvl (test code = Magnesium 1.9 1.8-2.4 Lvl) [facility] HospitalAkulhbwOIZEYZRHQZZW2126-95-98 22:47:00 Test Item Value Reference Range Interpretation Comments AGAP (test code = AGAP) 14.8 10.0-20.0 [facility] HospitalQgpxvgtGJWWDEEIKUKY7908-26-45 22:47:00 Test Item Value Reference Range Interpretation Comments eGFR (test code = eGFR) 95 [facility] HospitalDofzgmsWBFSKEETTDFC3020-86-78 22:47:00 Test Item Value Reference Range Interpretation Comments Calcium Lvl (test code = Calcium Lvl) 7.3 8.5-10.5 [facility] HospitalSbxlaweINJKGEFIGDBX8821-74-90 22:47:00 Test Item Value Reference Range Interpretation Comments Chloride Lvl (test code = Chloride Lvl) 110 95-109 [facility] HospitalSmygpsyZIHMRWAOIXVL5607-69-25 22:47:00 Test Item Value Reference Range Interpretation Comments Glucose Lvl (test code = Glucose Lvl) 77 70-99 [facility] HospitalReqnufkRPRIRRMPKCKT5635-95-28 22:47:00 Test Item Value Reference Range Interpretation Comments Creatinine Lvl (test code = Creatinine 1.07 0.50-1.40 Lvl) [facility] HospitalYbkxijrMDIBNMINREEU7663-96-46 22:47:00 Test Item Value Reference Range Interpretation Comments BUN (test code = BUN) 7 7-22 [facility] HospitalGtecgafUNGIQSANUCCK6424-89-60 22:47:00 Test Item Value Reference Range Interpretation Comments Sodium Lvl (test code = Sodium Lvl) 141 135-145 [facility] HospitalWqsbscoIYHCIPHCTTCA6231-38-42 22:47:00 Test Item Value Reference Range Interpretation Comments CO2 (test code = CO2) 20 24-32 [facility] PlanoBamyezlCVVKKNJQCF6781-55-99 22:47:00 Test Item Value Reference Range Interpretation Comments WBC (test code = WBC) 26.3 3.7-10.4 [facility]anoPvfvwwiNEHBXDILKV5047-46-33 22:47:00 Test Item Value Reference Range Interpretation Comments Platelet (test code = Platelet) 209 133-450 [facility] PlanoFxnebncRIIARUWKSE6048-47-87 22:47:00 Test Item Value Reference Range Interpretation Comments RDW (test code = RDW) 13.5 11.5-14.5 [facility] PlanoBgyamgnAUNITJKHMC2013-72-33 22:47:00 Test Item Value Reference Range Interpretation Comments Hct (test code = Hct) 39.5 42.0-54.0 [facility]anoLpmmiqpPKGNYKWLPG8164-51-67 22:47:00 Test Item Value Reference Range Interpretation Comments MPV (test code = MPV) 8.1 7.4-10.4 [facility]anoNjzlvbuBLZMISUEON5425-16-88 22:47:00 Test Item Value Reference Range Interpretation Comments MCHC (test code = MCHC) 33.2 32.0-36.0 [facility]anoGbnmkcpTBJNYDODLN5782-79-81 22:47:00 Test Item Value Reference Range Interpretation Comments Hgb (test code = Hgb) 13.1 14.0-18.0 [facility]anoNpimbknQVCJIDKQTF1468-27-40 22:47:00 Test Item Value Reference Range Interpretation Comments RBC (test code = RBC) 4.25 4.70-6.10 [facility]anoNlmrzkdORDXMRSPBZ9358-79-04 22:47:00 Test Item Value Reference Range Interpretation Comments MCH (test code = MCH) 30.9 pg 27.0-31.0 [facility]anoBmsmepwYLPXIDKCAT0120-05-39 22:47:00 Test Item Value Reference Range Interpretation Comments MCV (test code = MCV) 92.8 80.0-94.0 [facility]anoCafqekfBOUSKJAJFC7619-11-81 22:47:00 Test Item Value Reference Range Interpretation Comments Monocytes (test code = Monocytes) 7.6 2.0-12.0 [facility]anoXfwrjgnSIPBGTHVLS5471-11-63 22:47:00 Test Item Value Reference Range Interpretation Comments Lymphocytes (test code = Lymphocytes) 7.7 20.0-40.0 [facility] PlanoIoxjwexHITCGRKYTF8026-68-45 22:47:00 Test Item Value Reference Range Interpretation Comments Basophils (test code = 0.2 See_Comment [Aut omated message] The Basophils) system which ge nerated this result tra nsmitted reference range : <=1.0. The reference r yadira was not used to int erpret this result as normal/abnormal . [facility] PlanoNoopxfqQVMUVPGGOZ9860-51-73 22:47:00 Test Item Value Reference Range Interpretation Comments Segs-Bands # (test code = Segs-Bands #) 22.2 1.5-8.1 [facility] PlanoZdzmrwwLAZODOOLHC7743-48-90 22:47:00 Test Item Value Reference Range Interpretation Comments Monocytes # (test code 2.0 See_Comment [Aut omated message] The = Monocytes #) system which generated this result tra nsmitted reference range : <=0.8. The reference r yadira was not used to int erpret this result as normal/abnormal . [facility] PlanoVxjqdjxOIRVEGFNTY1773-73-95 22:47:00 Test Item Value Reference Range Interpretation Comments Lymphocytes # (test code = Lymphocytes 2.0 1.0-5.5 #) [facility] [place]jcbxlxTXMHDXJSGG4484-55-07 22:47:00 Test Item Value Reference Range Interpretation Comments Basophils # (test code 0.1 See_Comment [Aut omated message] The = Basophils #) system which generated this result tra nsmitted reference range : <=0.2. The reference r yadira was not used to int erpret this result as normal/abnormal . [facility]anoAssnvhaXRTJBPOXGN6474-32-82 22:47:00 Test Item Value Reference Range Interpretation Comments Segs (test code = Segs) 84.5 45.0-75.0 [facility]2017-06-20 22:47:00 Test Item Value Reference Range Interpretation Comments Ca Norm WB (test code = Ca Norm WB) 0.99 1.05-1.25 [facility] JXLCQDO0277-47-64 22:47:00 Test Item Value Reference Range Interpretation Comments Ca Ion WB (test code = Ca Ion WB) 1.04 1.05-1.25 [facility] [id number] 22:47:00 Test Item Value Reference Range Interpretation Comments Phosphorus (test code = Phosphorus) 2.4 2.5-4.5 [facility]CHE[facility] [id number] 22:47:00 Test Item Value Reference Range Interpretation Comments Magnesium Lvl (test code = Magnesium 1.9 1.8-2.4 Lvl) [facility] HospitalZyaqxmgELPHQOZNDWVA8356-21-92 22:47:00 Test Item Value Reference Range Interpretation Comments AGAP (test code = AGAP) 14.8 10.0-20.0 [facility] HospitalHuakuroYLKMKKUCQHBT5551-61-31 22:47:00 Test Item Value Reference Range Interpretation Comments eGFR (test code = eGFR) 95 [facility] HospitalNedauzkGFUEHBVFPBIB1585-03-61 22:47:00 Test Item Value Reference Range Interpretation Comments Calcium Lvl (test code = Calcium Lvl) 7.3 8.5-10.5 [facility] HospitalEdkmqnmGGOPEXZWOXTZ1981-27-20 22:47:00 Test Item Value Reference Range Interpretation Comments Chloride Lvl (test code = Chloride Lvl) 110 95-109 [facility] HospitalIrgtmriVXWMMNYPFFAP0573-97-53 22:47:00 Test Item Value Reference Range Interpretation Comments Glucose Lvl (test code = Glucose Lvl) 77 70-99 [facility] HospitalOxxifqoLKXPXHFZFJDF7121-94-49 22:47:00 Test Item Value Reference Range Interpretation Comments Creatinine Lvl (test code = Creatinine 1.07 0.50-1.40 Lvl) [facility] HospitalIkvfyisPBRXVKLJDRLG0410-94-65 22:47:00 Test Item Value Reference Range Interpretation Comments BUN (test code = BUN) 7 7-22 [facility] HospitalHgyplxrMGEZCABABLGB7235-20-12 22:47:00 Test Item Value Reference Range Interpretation Comments Sodium Lvl (test code = Sodium Lvl) 141 135-145 [facility] HospitalUpuygqrLDLKJHEGXTIE8103-16-87 22:47:00 Test Item Value Reference Range Interpretation Comments CO2 (test code = CO2) 20 24-32 [facility]anoKiyfvepYXQJGLMFIM7010-11-48 22:47:00 Test Item Value Reference Range Interpretation Comments WBC (test code = WBC) 26.3 3.7-10.4 [facility] [place]anoTstfnwfFYAFNUMMKX8963-69-28 22:47:00 Test Item Value Reference Range Interpretation Comments Platelet (test code = Platelet) 209 133-450 [facility] [place]anoNbsrvfjBBAQSTBRUG3001-44-37 22:47:00 Test Item Value Reference Range Interpretation Comments RDW (test code = RDW) 13.5 11.5-14.5 [facility] [place]anoGohhqssMONATGABYI6405-30-95 22:47:00 Test Item Value Reference Range Interpretation Comments Hct (test code = Hct) 39.5 42.0-54.0 [facility] [place]anoFfyorjgPOSUFYFUZI1681-86-67 22:47:00 Test Item Value Reference Range Interpretation Comments MPV (test code = MPV) 8.1 7.4-10.4 [facility] [place]anoVsipgkwAWKASTUSEE9040-85-03 22:47:00 Test Item Value Reference Range Interpretation Comments MCHC (test code = MCHC) 33.2 32.0-36.0 [facility] [place]anoXwayqmfCZCJPWDMWF7136-09-52 22:47:00 Test Item Value Reference Range Interpretation Comments Hgb (test code = Hgb) 13.1 14.0-18.0 [facility] [place]anoZlmjkrjTLFKUQTWXL9656-77-70 22:47:00 Test Item Value Reference Range Interpretation Comments RBC (test code = RBC) 4.25 4.70-6.10 [facility] [place]anoTsllgqlWPLSBPAKMY1338-28-99 22:47:00 Test Item Value Reference Range Interpretation Comments MCH (test code = MCH) 30.9 pg 27.0-31.0 [facility] [place]anoHmpxpwwGPWTKFDGVX3739-68-92 22:47:00 Test Item Value Reference Range Interpretation Comments MCV (test code = MCV) 92.8 80.0-94.0 [facility] [place]anoRzghulsJMPCBGMJYE6522-59-93 22:47:00 Test Item Value Reference Range Interpretation Comments Monocytes (test code = Monocytes) 7.6 2.0-12.0 [facility] [place]anoQufmkftNBJQUAJHLQ6961-46-53 22:47:00 Test Item Value Reference Range Interpretation Comments Lymphocytes (test code = Lymphocytes) 7.7 20.0-40.0 [facility] [place]anoWjyurykYEXCHHDNJS1704-66-64 22:47:00 Test Item Value Reference Range Interpretation Comments Basophils (test code = 0.2 See_Comment [Aut omated message] The Basophils) system which ge nerated this result tra nsmitted reference range : <=1.0. The reference r yadira was not used to int erpret this result as normal/abnormal . [facility] [place]anoOpjgdvnRZKLQOKXKC1844-50-17 22:47:00 Test Item Value Reference Range Interpretation Comments Segs-Bands # (test code = Segs-Bands #) 22.2 1.5-8.1 [facility] [place]anoLenxmcrKLUNVWPKOM8492-83-81 22:47:00 Test Item Value Reference Range Interpretation Comments Monocytes # (test code 2.0 See_Comment [Aut omated message] The = Monocytes #) system which generated this result tra nsmitted reference range : <=0.8. The reference r yadira was not used to int erpret this result as normal/abnormal . [facility] [place]anoNhzibuvGCKQSKPLLW4783-21-15 22:47:00 Test Item Value Reference Range Interpretation Comments Lymphocytes # (test code = Lymphocytes 2.0 1.0-5.5 #) [facility] [place]anoHiiwofyFEMMUBJTXZ2533-10-29 22:47:00 Test Item Value Reference Range Interpretation Comments Basophils # (test code 0.1 See_Comment [Aut omated message] The = Basophils #) system which generated this result tra nsmitted reference range : <=0.2. The reference r yadira was not used to int erpret this result as normal/abnormal . [facility] [place]anoPcgrzxlNTEEJRSRKW7111-24-48 22:47:00 Test Item Value Reference Range Interpretation Comments Segs (test code = Segs) 84.5 45.0-75.0 [facility] SUMGLTG1025-75-87 22:47:00 Test Item Value Reference Range Interpretation Comments Ca Norm WB (test code = Ca Norm WB) 0.99 1.05-1.25 [facility] [place]RO[facility] ZTJCYQG7867-93-56 22:47:00 Test Item Value Reference Range Interpretation Comments Ca Ion WB (test code = Ca Ion WB) 1.04 1.05-1.25 [facility]CHE[facility] [id number] 22:47:00 Test Item Value Reference Range Interpretation Comments Phosphorus (test code = Phosphorus) 2.4 2.5-4.5 [facility] SystemCHE[facility] EMGJR7901-30-06 22:47:00 Test Item Value Reference Range Interpretation Comments Magnesium Lvl (test code = Magnesium 1.9 1.8-2.4 Lvl) [facility] HospitalZmbvxhlVNVYQVXBAYRL6639-92-25 22:47:00 Test Item Value Reference Range Interpretation Comments AGAP (test code = AGAP) 14.8 10.0-20.0 [facility] HospitalVsnjocwBOXMRZBGWYQP2904-98-12 22:47:00 Test Item Value Reference Range Interpretation Comments eGFR (test code = eGFR) 95 [facility] HospitalNeuhhhkHEKMRUKTSLKZ3747-07-80 22:47:00 Test Item Value Reference Range Interpretation Comments Calcium Lvl (test code = Calcium Lvl) 7.3 8.5-10.5 [facility] HospitalUlktoaqBECPQTGVIGMR6867-45-47 22:47:00 Test Item Value Reference Range Interpretation Comments Chloride Lvl (test code = Chloride Lvl) 110 95-109 [facility] HospitalJhacsssNSBZUGNSYLNS4966-46-65 22:47:00 Test Item Value Reference Range Interpretation Comments Glucose Lvl (test code = Glucose Lvl) 77 70-99 [facility] HospitalNtcstfdQGPNSWTEFMXN1232-24-19 22:47:00 Test Item Value Reference Range Interpretation Comments Creatinine Lvl (test code = Creatinine 1.07 0.50-1.40 Lvl) [facility] HospitalFxfulwoITAJDHYWOOIU6965-00-36 22:47:00 Test Item Value Reference Range Interpretation Comments BUN (test code = BUN) 7 7-22 [facility] HospitalRkahihoSUNUHUORKHON4983-02-93 22:47:00 Test Item Value Reference Range Interpretation Comments Sodium Lvl (test code = Sodium Lvl) 141 135-145 [facility] HospitalJvhchwxKVDWPABZXEYZ1091-94-25 22:47:00 Test Item Value Reference Range Interpretation Comments CO2 (test code = CO2) 20 24-32 [facility] [place]anoEytwdjpAOOWXWLPVS0446-97-39 22:47:00 Test Item Value Reference Range Interpretation Comments WBC (test code = WBC) 26.3 3.7-10.4 [facility] [place]anoPuddtcdVTTSQVUFND5405-32-53 22:47:00 Test Item Value Reference Range Interpretation Comments Platelet (test code = Platelet) 209 133-450 [facility] [place]anoVxlbuceDAZMHAFDDD4727-03-48 22:47:00 Test Item Value Reference Range Interpretation Comments RDW (test code = RDW) 13.5 11.5-14.5 [facility] [place]anoGetmveaBQLJUTJLWI5915-39-36 22:47:00 Test Item Value Reference Range Interpretation Comments Hct (test code = Hct) 39.5 42.0-54.0 [facility] [place]anoGkrsvbwKDTLPWCMBC2332-67-15 22:47:00 Test Item Value Reference Range Interpretation Comments MPV (test code = MPV) 8.1 7.4-10.4 [facility] [place]anoXzdpuovEZMVZJZBAY5386-49-52 22:47:00 Test Item Value Reference Range Interpretation Comments MCHC (test code = MCHC) 33.2 32.0-36.0 [facility] [place]anoJsznfnoMIPHKWQOGU1587-98-69 22:47:00 Test Item Value Reference Range Interpretation Comments Hgb (test code = Hgb) 13.1 14.0-18.0 [facility] [place]anoPjzbexhSIHVKIQXYX7338-92-20 22:47:00 Test Item Value Reference Range Interpretation Comments RBC (test code = RBC) 4.25 4.70-6.10 [facility] [place]anoYbmetrdUJZGMFKLZW4217-75-01 22:47:00 Test Item Value Reference Range Interpretation Comments MCH (test code = MCH) 30.9 pg 27.0-31.0 [facility] [place]anoXruivpbYCZOUGHQRV7709-31-01 22:47:00 Test Item Value Reference Range Interpretation Comments MCV (test code = MCV) 92.8 80.0-94.0 [facility] PlanoBjadyqjEBJBRBOVKV1053-44-31 22:47:00 Test Item Value Reference Range Interpretation Comments Monocytes (test code = Monocytes) 7.6 2.0-12.0 [facility] [place]anoMxnlojnUPBEPINEJA3939-57-91 22:47:00 Test Item Value Reference Range Interpretation Comments Lymphocytes (test code = Lymphocytes) 7.7 20.0-40.0 [facility] PlanoRyywndrKFZJRTVNUP5606-97-33 22:47:00 Test Item Value Reference Range Interpretation Comments Basophils (test code = 0.2 See_Comment [Aut omated message] The Basophils) system which ge nerated this result tra nsmitted reference range : <=1.0. The reference r yadira was not used to int erpret this result as normal/abnormal . [facility] [place]anoSdsqgmxQMGXIRPDGA9446-85-54 22:47:00 Test Item Value Reference Range Interpretation Comments Segs-Bands # (test code = Segs-Bands #) 22.2 1.5-8.1 [facility] PlanoBvmmsqnPBKHBFCCHK6181-13-52 22:47:00 Test Item Value Reference Range Interpretation Comments Monocytes # (test code 2.0 See_Comment [Aut omated message] The = Monocytes #) system which generated this result tra nsmitted reference range : <=0.8. The reference r yadira was not used to int erpret this result as normal/abnormal . [facility] [place]anoKfvuseqYZTJVDJZSZ0731-26-55 22:47:00 Test Item Value Reference Range Interpretation Comments Lymphocytes # (test code = Lymphocytes 2.0 1.0-5.5 #) [facility] [place]XgjwghdKWBOBYWPKD2561-86-22 22:47:00 Test Item Value Reference Range Interpretation Comments Basophils # (test code 0.1 See_Comment [Aut omated message] The = Basophils #) system which generated this result tra nsmitted reference range : <=0.2. The reference r yadira was not used to int erpret this result as normal/abnormal . [facility] PlanoDplasqxFCZUOOPOBK1343-02-74 22:47:00 Test Item Value Reference Range Interpretation Comments Segs (test code = Segs) 84.5 45.0-75.0 [facility] [place]PAR[place]RO[facility] RYXCYUI6932-05-99 22:47:00 Test Item Value Reference Range Interpretation Comments Ca Norm WB (test code = Ca Norm WB) 0.99 1.05-1.25 [facility] [place]annPARATHYROID NMMOXIY5352-89-39 22:47:00 Test Item Value Reference Range Interpretation Comments Ca Ion WB (test code = Ca Ion WB) 1.04 1.05-1.25 [facility]annCHEM [id number] 22:47:00 Test Item Value Reference Range Interpretation Comments Phosphorus (test code = Phosphorus) 2.4 2.5-4.5 [facility]annCHEM [id number] 22:47:00 Test Item Value Reference Range Interpretation Comments Magnesium Lvl (test code = Magnesium 1.9 1.8-2.4 Lvl) [facility] HospitalQoifooeDGQJFOVFKVCR1661-80-22 22:47:00 Test Item Value Reference Range Interpretation Comments AGAP (test code = AGAP) 14.8 10.0-20.0 [facility]NswknxxWFWSSUOQVCVV3716-14-36 22:47:00 Test Item Value Reference Range Interpretation Comments eGFR (test code = eGFR) 95 [facility] HospitalSyiduxoIVZTETQCGRFQ0920-07-44 22:47:00 Test Item Value Reference Range Interpretation Comments Calcium Lvl (test code = Calcium Lvl) 7.3 8.5-10.5 [facility] HospitalMnvozywCZWYXVZQELMN3353-71-74 22:47:00 Test Item Value Reference Range Interpretation Comments Chloride Lvl (test code = Chloride Lvl) 110 95-109 [facility] HospitalWzciqnfQZLLODHSKCPU5288-99-87 22:47:00 Test Item Value Reference Range Interpretation Comments Glucose Lvl (test code = Glucose Lvl) 77 70-99 [facility] HospitalIboziydXZEJRXVVMMXW2963-73-36 22:47:00 Test Item Value Reference Range Interpretation Comments Creatinine Lvl (test code = Creatinine 1.07 0.50-1.40 Lvl) [facility] HospitalBmtazigOBQZTRWJVNIV6161-50-59 22:47:00 Test Item Value Reference Range Interpretation Comments BUN (test code = BUN) 7 7-22 [facility] HospitalScmtqjjHVZPUYMNBGRG5303-88-22 22:47:00 Test Item Value Reference Range Interpretation Comments Sodium Lvl (test code = Sodium Lvl) 141 135-145 [facility] HospitalEvoegqvBXXXOYUZIJOR8648-58-11 22:47:00 Test Item Value Reference Range Interpretation Comments CO2 (test code = CO2) 20 24-32 [facility] [place]anoCsyerspUVFGSOKDAJ2367-66-41 22:47:00 Test Item Value Reference Range Interpretation Comments WBC (test code = WBC) 26.3 3.7-10.4 [facility] PlanoHtvizgaLXZGPIYUPB8602-39-47 22:47:00 Test Item Value Reference Range Interpretation Comments Platelet (test code = Platelet) 209 133-450 [facility] [place]anoTwtzsomEYPSEAGVSK1587-22-91 22:47:00 Test Item Value Reference Range Interpretation Comments RDW (test code = RDW) 13.5 11.5-14.5 [facility] PlanoRmspvjcWVWCLEVJUL4744-19-65 22:47:00 Test Item Value Reference Range Interpretation Comments Hct (test code = Hct) 39.5 42.0-54.0 [facility] [place]anoWeipqnlDXXBRFNDMG7317-01-58 22:47:00 Test Item Value Reference Range Interpretation Comments MPV (test code = MPV) 8.1 7.4-10.4 [facility] [place]anoFgppphlODTKPGZXSY9867-40-05 22:47:00 Test Item Value Reference Range Interpretation Comments MCHC (test code = MCHC) 33.2 32.0-36.0 [facility] [place]anoGvokcrqIQUWNMXKEM0602-80-46 22:47:00 Test Item Value Reference Range Interpretation Comments Hgb (test code = Hgb) 13.1 14.0-18.0 [facility] [place]anoGknwlglPPUQJMNEPU5927-94-50 22:47:00 Test Item Value Reference Range Interpretation Comments RBC (test code = RBC) 4.25 4.70-6.10 [facility] PlanoBbiywvxFRVFIDMIEG3821-55-13 22:47:00 Test Item Value Reference Range Interpretation Comments MCH (test code = MCH) 30.9 pg 27.0-31.0 [facility] PlanoAmtduokHFOWAAWAHC1518-44-49 22:47:00 Test Item Value Reference Range Interpretation Comments MCV (test code = MCV) 92.8 80.0-94.0 [facility] PlanoYzjokjjNQTSZQMENM8170-32-44 22:47:00 Test Item Value Reference Range Interpretation Comments Monocytes (test code = Monocytes) 7.6 2.0-12.0 [facility] [place]anoSxkcrbnBBLLDDLTUS6294-97-94 22:47:00 Test Item Value Reference Range Interpretation Comments Lymphocytes (test code = Lymphocytes) 7.7 20.0-40.0 [facility] [place]anoOurftjdTSMLIWZJYJ1560-51-76 22:47:00 Test Item Value Reference Range Interpretation Comments Basophils (test code = 0.2 See_Comment [Aut omated message] The Basophils) system which ge nerated this result tra nsmitted reference range : <=1.0. The reference r yadira was not used to int erpret this result as normal/abnormal . [facility] PlanoBxyuuytVVGAMTVZHR4478-43-16 22:47:00 Test Item Value Reference Range Interpretation Comments Segs-Bands # (test code = Segs-Bands #) 22.2 1.5-8.1 [facility] [place]anoMlgtujgQOMZTFRRKF0774-99-10 22:47:00 Test Item Value Reference Range Interpretation Comments Monocytes # (test code 2.0 See_Comment [Aut omated message] The = Monocytes #) system which generated this result tra nsmitted reference range : <=0.8. The reference r yadira was not used to int erpret this result as normal/abnormal . [facility] [place]anoVvwavosTZMYEWHSVM9057-16-75 22:47:00 Test Item Value Reference Range Interpretation Comments Lymphocytes # (test code = Lymphocytes 2.0 1.0-5.5 #) [facility] [place]anoFmqjcsiFARYIXJNNU8983-83-19 22:47:00 Test Item Value Reference Range Interpretation Comments Basophils # (test code 0.1 See_Comment [Aut omated message] The = Basophils #) system which generated this result tra nsmitted reference range : <=0.2. The reference r yadira was not used to int erpret this result as normal/abnormal . [facility] PlanoGrulrqwISZYVJILLT8534-91-12 22:47:00 Test Item Value Reference Range Interpretation Comments Segs (test code = Segs) 84.5 45.0-75.0 [facility]villeROID OEJSRJA9267-34-14 22:47:00 Test Item Value Reference Range Interpretation Comments Ca Norm WB (test code = Ca Norm WB) 0.99 1.05-1.25 [facility]2017-06-20 22:47:00 Test Item Value Reference Range Interpretation Comments Ca Ion WB (test code = Ca Ion WB) 1.04 1.05-1.25 [facility]CHE[facility] [id number] 22:47:00 Test Item Value Reference Range Interpretation Comments Phosphorus (test code = Phosphorus) 2.4 2.5-4.5 [facility] SystemCHE[facility] PLQYB1651-03-39 22:47:00 Test Item Value Reference Range Interpretation Comments Magnesium Lvl (test code = Magnesium 1.9 1.8-2.4 Lvl) [facility] HospitalXfirdfrBAGFTSHKJCGJ3835-03-55 22:47:00 Test Item Value Reference Range Interpretation Comments AGAP (test code = AGAP) 14.8 10.0-20.0 [facility] HospitalObijxetUXHWVRYEABKA2922-51-34 22:47:00 Test Item Value Reference Range Interpretation Comments eGFR (test code = eGFR) 95 [facility] HospitalBccpwhgOOJSLPOQTVLO5828-86-46 22:47:00 Test Item Value Reference Range Interpretation Comments Calcium Lvl (test code = Calcium Lvl) 7.3 8.5-10.5 [facility] HospitalUkkcfhiBKWYWIWLWHYA6579-39-31 22:47:00 Test Item Value Reference Range Interpretation Comments Chloride Lvl (test code = Chloride Lvl) 110 95-109 [facility] HospitalGoagsojRZXRFLXCROWT6867-68-97 22:47:00 Test Item Value Reference Range Interpretation Comments Glucose Lvl (test code = Glucose Lvl) 77 70-99 [facility] HospitalEgfcbumPCPKPTFUDIPD6587-10-30 22:47:00 Test Item Value Reference Range Interpretation Comments Creatinine Lvl (test code = Creatinine 1.07 0.50-1.40 Lvl) [facility] HospitalVykerqjIOWACTIUOFBY5530-65-93 22:47:00 Test Item Value Reference Range Interpretation Comments BUN (test code = BUN) 7 7-22 [facility] HospitalFqimelnRNSOQCNAURWF6169-28-43 22:47:00 Test Item Value Reference Range Interpretation Comments Sodium Lvl (test code = Sodium Lvl) 141 135-145 [facility] HospitalEspjwopEGLLUTKJEWYO5366-76-20 22:47:00 Test Item Value Reference Range Interpretation Comments CO2 (test code = CO2) 20 24-32 [facility] PlanoWpjksxmKYEPCZTWMF5395-80-00 22:47:00 Test Item Value Reference Range Interpretation Comments WBC (test code = WBC) 26.3 3.7-10.4 [facility] [place]anoIhfktpiLUSMJTUWBG0023-38-13 22:47:00 Test Item Value Reference Range Interpretation Comments Platelet (test code = Platelet) 209 133-450 [facility] PlanoJjiztlcGFIPIAVGSK0319-90-75 22:47:00 Test Item Value Reference Range Interpretation Comments RDW (test code = RDW) 13.5 11.5-14.5 [facility] PlanoMtwjxurPZXTCLVTZN1126-40-74 22:47:00 Test Item Value Reference Range Interpretation Comments Hct (test code = Hct) 39.5 42.0-54.0 [facility] PlanoSildhuiGGNRSUIUZC0827-22-09 22:47:00 Test Item Value Reference Range Interpretation Comments MPV (test code = MPV) 8.1 7.4-10.4 [facility] PlanoZqcbvtnIAXJXZLJRI6719-87-90 22:47:00 Test Item Value Reference Range Interpretation Comments MCHC (test code = MCHC) 33.2 32.0-36.0 [facility] PlanoJluvedvPVKCIDMBBU0993-50-09 22:47:00 Test Item Value Reference Range Interpretation Comments Hgb (test code = Hgb) 13.1 14.0-18.0 [facility] PlanoLubznqrNEEWMDDXHI8456-30-66 22:47:00 Test Item Value Reference Range Interpretation Comments RBC (test code = RBC) 4.25 4.70-6.10 [facility] PlanoVolxylsFDMLMQACRR7857-11-52 22:47:00 Test Item Value Reference Range Interpretation Comments MCH (test code = MCH) 30.9 pg 27.0-31.0 [facility] PlanoFtsuzbeVHICHGFLCE3311-70-88 22:47:00 Test Item Value Reference Range Interpretation Comments MCV (test code = MCV) 92.8 80.0-94.0 [facility] PlanoZkcqilhCFOHTXTRAZ9134-42-90 22:47:00 Test Item Value Reference Range Interpretation Comments Monocytes (test code = Monocytes) 7.6 2.0-12.0 [facility] PlanoJtwtdbmXMIQKXEKQE8721-36-39 22:47:00 Test Item Value Reference Range Interpretation Comments Lymphocytes (test code = Lymphocytes) 7.7 20.0-40.0 [facility] PlanoNjejjlcPIGKEBQHRF2064-04-59 22:47:00 Test Item Value Reference Range Interpretation Comments Basophils (test code = 0.2 See_Comment [Aut omated message] The Basophils) system which ge nerated this result tra nsmitted reference range : <=1.0. The reference r yadira was not used to int erpret this result as normal/abnormal . [facility] PlanoGankgjyGGSDCKLIIK1950-78-42 22:47:00 Test Item Value Reference Range Interpretation Comments Segs-Bands # (test code = Segs-Bands #) 22.2 1.5-8.1 [facility] PlanoClcpymwXGZZDILVQM3144-47-79 22:47:00 Test Item Value Reference Range Interpretation Comments Monocytes # (test code 2.0 See_Comment [Aut omated message] The = Monocytes #) system which generated this result tra nsmitted reference range : <=0.8. The reference r yadira was not used to int erpret this result as normal/abnormal . [facility] PlanoVsmtuhaVTTPKOXURO9583-50-50 22:47:00 Test Item Value Reference Range Interpretation Comments Lymphocytes # (test code = Lymphocytes 2.0 1.0-5.5 #) [facility] [place]anoImgzmgpHXAFWXLMWF8687-77-13 22:47:00 Test Item Value Reference Range Interpretation Comments Basophils # (test code 0.1 See_Comment [Aut omated message] The = Basophils #) system which generated this result tra nsmitted reference range : <=0.2. The reference r yadira was not used to int erpret this result as normal/abnormal . [facility]fqgxvdWMLYGWGMQP6040-15-43 22:47:00 Test Item Value Reference Range Interpretation Comments Segs (test code = Segs) 84.5 45.0-75.0 [facility] [id number] 22:47:00 Test Item Value Reference Range Interpretation Comments Ca Norm WB (test code = Ca Norm WB) 0.99 1.05-1.25 [facility]RO[facility] [id number] 22:47:00 Test Item Value Reference Range Interpretation Comments Ca Ion WB (test code = Ca Ion WB) 1.04 1.05-1.25 [facility]2014-02-25 15:12:00 Test Item Value Reference Range Interpretation Comments ALANINE AMINOTRANSFERASE 28 See_Comment [A utomated message] (test code = ALANINE The sys tem which AMINOTRANSFERASE) generated this result transmitted ref erence range: <=65. Th e reference range was not used to int erpret this result as normal/abnormal . [facility]2014-02-25 15:12:00 Test Item Value Reference Range Interpretation Comments Albumin Lvl (test code = Albumin Lvl) 4.1 3.5-5.0 [facility]2014-02-25 15:12:00 Test Item Value Reference Range Interpretation Comments Bili Direct (test code 0.1 See_Comment [Aut omated message] The = Bili Direct) system which generated this result tra nsmitted reference range : <=0.3. The reference r yadira was not used to int erpret this result as meme l/abnormal. [facility]2014-02-25 15:12:00 Test Item Value Reference Range Interpretation Comments Alk Phos (test code = Alk Phos) 99 39-136 [facility]2014-02-25 15:12:00 Test Item Value Reference Range Interpretation Comments Bili Total (test code = Bili Total) 0.4 0.2-1.3 [facility]2014-02-25 15:12:00 Test Item Value Reference Range Interpretation Comments ASPARTATE TRANSAMINASE 13 See_Comment [Aut omated message] (test code = ASPARTATE The s ystem which TRANSAMINASE) generated this result transmitted ref erence range: <=37. Th e reference range was not used to interpr et this result as normal/abnormal . [facility] [id number] 15:12:00 Test Item Value Reference Range Interpretation Comments Total Protein (test code = Total 7.2 6.4-8.4 Protein) [facility] [id number] 15:12:00 Test Item Value Reference Range Interpretation Comments Globulin (test code = Globulin) 3.1 2.0-4.0 [facility]burgGeol[facility] [id number] 15:12:00 Test Item Value Reference Range Interpretation Comments Bili Indirect (test 0.3 See_Comment [Automa michelle message] The code = Bili Indirect) system which generated this result tra nsmitted reference range : <=1.0. The reference r yadira was not used to int erpret this result as normal/abnormal . [facility] [id number] 15:12:00 Test Item Value Reference Range Interpretation Comments A/G Ratio (test code = A/G Ratio) 1.3 0.7-1.6 [facility] EdinburgKzzgcqgUMXJPZERTUBO7976-28-05 15:12:00 Test Item Value Reference Range Interpretation Comments AGAP (test code = AGAP) 12.2 10.0-20.0 [facility] EdinburgOczadozJIOTWGHKRFRW7764-27-95 15:12:00 Test Item Value Reference Range Interpretation Comments eGFR (test code = eGFR) 119 [facility] HospitalXniyytfXJHWJEGEYHZE1280-36-97 15:12:00 Test Item Value Reference Range Interpretation Comments BUN (test code = BUN) 6 7-22 [facility] EdinburgDdbalpoZZXCOGYYDOPP4485-94-93 15:12:00 Test Item Value Reference Range Interpretation Comments Glucose Lvl (test code = Glucose Lvl) 77 70-99 [facility]VqivpkvEOYFZBEZBOYK2019-55-24 15:12:00 Test Item Value Reference Range Interpretation Comments Creatinine Lvl (test code = Creatinine 0.9 0.5-1.4 Lvl) [facility]burgTtnqkseWAXUNOVUOPBG9751-71-23 15:12:00 Test Item Value Reference Range Interpretation Comments Sodium Lvl (test code = Sodium Lvl) 141 135-145 [facility] CampusPkwrixpNWWQWIKWNUHH7019-10-52 15:12:00 Test Item Value Reference Range Interpretation Comments Calcium Lvl (test code = Calcium Lvl) 9.4 8.5-10.5 [facility] HospitalRrkwakvLOZZICYJOFMH0712-72-86 15:12:00 Test Item Value Reference Range Interpretation Comments CO2 (test code = CO2) 30 24-32 [facility] HospitalClfwlfkDLNIUZODAJGJ0320-04-19 15:12:00 Test Item Value Reference Range Interpretation Comments Chloride Lvl (test code = Chloride Lvl) 102 95-109 [facility] HospitalGohbphdCPIUREFXVMCJ1260-05-63 15:12:00 Test Item Value Reference Range Interpretation Comments Potassium Lvl (test code = Potassium 3.2 3.5-5.1 Lvl) [facility]anoHlpfciuYRMPWLUNAK5911-73-39 15:12:00 Test Item Value Reference Range Interpretation Comments MCV (test code = MCV) 89.9 80.0-94.0 [facility]anoIaaurrtCECVYGRHIG9420-37-49 15:12:00 Test Item Value Reference Range Interpretation Comments RDW (test code = RDW) 13.1 11.5-14.5 [facility]anoVoakrivMQMAGJSACC9028-97-25 15:12:00 Test Item Value Reference Range Interpretation Comments MCHC (test code = MCHC) 34.8 32.0-36.0 [facility]anoUgxaugfOOGRTWYAAS5401-27-83 15:12:00 Test Item Value Reference Range Interpretation Comments MCH (test code = MCH) 31.3 pg 27.0-31.0 [facility]anoJuesriaCDLANLOSYK4870-27-13 15:12:00 Test Item Value Reference Range Interpretation Comments Hct (test code = Hct) 42.0 42.0-54.0 [facility]anoAdwbcfcPSZKYZSSRJ5354-00-70 15:12:00 Test Item Value Reference Range Interpretation Comments Hgb (test code = Hgb) 14.6 14.0-18.0 [facility]anoJzshrkiJWBMKQGZRW4347-14-96 15:12:00 Test Item Value Reference Range Interpretation Comments RBC X 10x6 (test code = RBC X 10x6) 4.67 4.70-6.10 [facility]anoMbumnkeOVRKZNXNES8366-15-54 15:12:00 Test Item Value Reference Range Interpretation Comments WBC X 10x3 (test code = WBC X 10x3) 8.3 3.7-10.4 [facility]anoIsrwlxxSDRUOETOTS1783-39-81 15:12:00 Test Item Value Reference Range Interpretation Comments Platelet (test code = Platelet) 275 133-450 [facility]anoNtxigozGKSDLEGNXD4691-28-95 15:12:00 Test Item Value Reference Range Interpretation Comments MPV (test code = MPV) 8.2 7.4-10.4 [facility]anoNhkaionEZOOBNPCRO2210-53-01 15:12:00 Test Item Value Reference Range Interpretation Comments Monocytes (test code = Monocytes) 11.4 2.0-12.0 [facility]anoWwoyoomMTLXDEPODK1311-60-56 15:12:00 Test Item Value Reference Range Interpretation Comments Segs-Bands # (test code = Segs-Bands #) 4.3 1.5-8.1 [facility]anoEdxpugnFWEMSNZXFJ7103-89-46 15:12:00 Test Item Value Reference Range Interpretation Comments Basophils (test code = 0.7 See_Comment [Aut omated message] The Basophils) system which ge nerated this result tra nsmitted reference range : <=1.0. The reference r yadira was not used to int erpret this result as normal/abnormal . [facility]anoFukfrccNEUBKIVGZI0606-88-40 15:12:00 Test Item Value Reference Range Interpretation Comments Lymphocytes # (test code = Lymphocytes 2.5 1.0-5.5 #) [facility]anoIbvaweqCDRRMYYWZI9982-06-07 15:12:00 Test Item Value Reference Range Interpretation Comments Eosinophils (test code = 5.6 See_Comment [A utomated message] The Eosinophils) system which ge nerated this result tra nsmitted reference range : <=4.0. The reference r yadira was not used to int erpret this result as normal/abnormal . [facility]anoSinakheWLODCACWXH5795-31-91 15:12:00 Test Item Value Reference Range Interpretation Comments Basophils # (test code 0.1 See_Comment [Aut omated message] The = Basophils #) system which generated this result tra nsmitted reference range : <=0.2. The reference r yadira was not used to int erpret this result as normal/abnormal . [facility]anoGendiwwOYTLSWZVMB5757-83-29 15:12:00 Test Item Value Reference Range Interpretation Comments Eosinophils # (test code 0.5 See_Comment [A utomated message] The = Eosinophils #) system whic h generated this result tra nsmitted reference range : <=0.5. The reference r yadira was not used to int erpret this result as normal/abnormal . [facility]anoJhybeeqUFTRVHPPMW0915-60-08 15:12:00 Test Item Value Reference Range Interpretation Comments Monocytes # (test code 1.0 See_Comment [Aut omated message] The = Monocytes #) system which generated this result tra nsmitted reference range : <=0.8. The reference r yadira was not used to int erpret this result as normal/abnormal . [facility] PlanoQknzmomRJVKWSDTPK8125-51-06 15:12:00 Test Item Value Reference Range Interpretation Comments Segs (test code = Segs) 51.9 45.0-75.0 [facility]anoAtpyojdKLYYZVHONV5981-26-95 15:12:00 Test Item Value Reference Range Interpretation Comments Lymphocytes (test code = Lymphocytes) 30.4 20.0-40.0 [place] [id number] 15:12:00 Test Item Value Reference Range Interpretation Comments Lacosamide Lvl (test code = Lacosamide 6.3 Lvl) [place] [id number] 15:12:00 Test Item Value Reference Range Interpretation Comments Carbamaz Lvl (test code = Carbamaz Lvl) no gt 8.0-12.0 [facility]2014-02-25 15:12:00 Test Item Value Reference Range Interpretation Comments ALANINE AMINOTRANSFERASE 28 See_Comment [A utomated message] (test code = ALANINE The sys tem which AMINOTRANSFERASE) generated this result transmitted ref erence range: <=65. Th e reference range was not used to int erpret this result as normal/abnormal . [facility] SystemMineralRightsWorldwide.com [id number] 15:12:00 Test Item Value Reference Range Interpretation Comments Albumin Lvl (test code = Albumin Lvl) 4.1 3.5-5.0 [facility]2014-02-25 15:12:00 Test Item Value Reference Range Interpretation Comments Bili Direct (test code 0.1 See_Comment [Aut omated message] The = Bili Direct) system which generated this result tra nsmitted reference range : <=0.3. The reference r yadira was not used to int erpret this result as meme l/abnormal. [facility]2014-02-25 15:12:00 Test Item Value Reference Range Interpretation Comments Alk Phos (test code = Alk Phos) 99 39-136 [facility] SystemMineralRightsWorldwide.com QJLZC9739-85-78 15:12:00 Test Item Value Reference Range Interpretation Comments Bili Total (test code = Bili Total) 0.4 0.2-1.3 [facility]2014-02-25 15:12:00 Test Item Value Reference Range Interpretation Comments ASPARTATE TRANSAMINASE 13 See_Comment [Aut omated message] (test code = ASPARTATE The s ystem which TRANSAMINASE) generated this result transmitted ref erence range: <=37. Th e reference range was not used to interpr et this result as normal/abnormal . [facility]2014-02-25 15:12:00 Test Item Value Reference Range Interpretation Comments Total Protein (test code = Total 7.2 6.4-8.4 Protein) [facility]2014-02-25 15:12:00 Test Item Value Reference Range Interpretation Comments Globulin (test code = Globulin) 3.1 2.0-4.0 [facility]2014-02-25 15:12:00 Test Item Value Reference Range Interpretation Comments Bili Indirect (test 0.3 See_Comment [Automa michelle message] The code = Bili Indirect) system which generated this result tra nsmitted reference range : <=1.0. The reference r yadira was not used to int erpret this result as normal/abnormal . [facility]2014-02-25 15:12:00 Test Item Value Reference Range Interpretation Comments A/G Ratio (test code = A/G Ratio) 1.3 0.7-1.6 [facility] HospitalXfoscknHVSOATKPZQDR0247-10-49 15:12:00 Test Item Value Reference Range Interpretation Comments AGAP (test code = AGAP) 12.2 10.0-20.0 [facility] HospitalKgnhvyeYLJYIVVVAIQT0248-30-25 15:12:00 Test Item Value Reference Range Interpretation Comments eGFR (test code = eGFR) 119 [facility] HospitalQghuuclGQOZYDLJQLTR5770-27-94 15:12:00 Test Item Value Reference Range Interpretation Comments BUN (test code = BUN) 6 7-22 [facility] HospitalCqfnakyKYGZPNSSGEKC4476-92-57 15:12:00 Test Item Value Reference Range Interpretation Comments Glucose Lvl (test code = Glucose Lvl) 77 70-99 [facility] HospitalSyhcseoBXDFYFQQOBUI2467-19-54 15:12:00 Test Item Value Reference Range Interpretation Comments Creatinine Lvl (test code = Creatinine 0.9 0.5-1.4 Lvl) [facility] HospitalSlsnunyWMODASBZUQSZ8805-52-02 15:12:00 Test Item Value Reference Range Interpretation Comments Sodium Lvl (test code = Sodium Lvl) 141 135-145 [facility] HospitalIqvcgjzUHUBXCRSZJBQ8167-50-02 15:12:00 Test Item Value Reference Range Interpretation Comments Calcium Lvl (test code = Calcium Lvl) 9.4 8.5-10.5 [facility] HospitalCxhtbpeUQTHSYBLMDHG8718-58-92 15:12:00 Test Item Value Reference Range Interpretation Comments CO2 (test code = CO2) 30 24-32 [facility] HospitalUrzphvnGWSTHAXKVGFK2044-00-01 15:12:00 Test Item Value Reference Range Interpretation Comments Chloride Lvl (test code = Chloride Lvl) 102 95-109 [facility] HospitalHvxtfwmDFZITGQGBBRK7661-79-08 15:12:00 Test Item Value Reference Range Interpretation Comments Potassium Lvl (test code = Potassium 3.2 3.5-5.1 Lvl) [facility]anoNztvlqyTPTECQOMLU4140-46-27 15:12:00 Test Item Value Reference Range Interpretation Comments MCV (test code = MCV) 89.9 80.0-94.0 [facility]anoDdyzbnhEXNXWSAZEE3250-10-34 15:12:00 Test Item Value Reference Range Interpretation Comments RDW (test code = RDW) 13.1 11.5-14.5 [facility]anoLmsjpbhMPVEMIWZSN2508-45-08 15:12:00 Test Item Value Reference Range Interpretation Comments MCHC (test code = MCHC) 34.8 32.0-36.0 [facility]anoYzflkeaZDZYWXLGBF1685-54-44 15:12:00 Test Item Value Reference Range Interpretation Comments MCH (test code = MCH) 31.3 pg 27.0-31.0 [facility]anoCsjdsnpEODNWXAQMQ1749-48-96 15:12:00 Test Item Value Reference Range Interpretation Comments Hct (test code = Hct) 42.0 42.0-54.0 [facility]anoTqhlfunEBQHSOPIKO7902-75-09 15:12:00 Test Item Value Reference Range Interpretation Comments Hgb (test code = Hgb) 14.6 14.0-18.0 [facility]anoYnacnxgRKCCDJUYRF7290-58-68 15:12:00 Test Item Value Reference Range Interpretation Comments RBC X 10x6 (test code = RBC X 10x6) 4.67 4.70-6.10 [facility]anoBqcmadpOPPYPGWOAK0481-16-32 15:12:00 Test Item Value Reference Range Interpretation Comments WBC X 10x3 (test code = WBC X 10x3) 8.3 3.7-10.4 [facility]anoMpkvdlkGBCHLMHBUI0274-08-73 15:12:00 Test Item Value Reference Range Interpretation Comments Platelet (test code = Platelet) 275 133-450 [facility]anoHdaevohALPROYJKPW4563-89-70 15:12:00 Test Item Value Reference Range Interpretation Comments MPV (test code = MPV) 8.2 7.4-10.4 [facility]anoFffetoyAKFFYSDWFP3040-00-74 15:12:00 Test Item Value Reference Range Interpretation Comments Monocytes (test code = Monocytes) 11.4 2.0-12.0 [facility]anoYegxwyrCUZVWWBGLO1169-17-02 15:12:00 Test Item Value Reference Range Interpretation Comments Segs-Bands # (test code = Segs-Bands #) 4.3 1.5-8.1 [facility] PlanoZilgcojDHGQEJEGCP6651-13-41 15:12:00 Test Item Value Reference Range Interpretation Comments Basophils (test code = 0.7 See_Comment [Aut omated message] The Basophils) system which ge nerated this result tra nsmitted reference range : <=1.0. The reference r yadira was not used to int erpret this result as normal/abnormal . [facility]anoAxfgclbVTWXHBQRMP5976-37-07 15:12:00 Test Item Value Reference Range Interpretation Comments Lymphocytes # (test code = Lymphocytes 2.5 1.0-5.5 #) [facility]anoLwaivsrHOOEMHIRKR5522-40-95 15:12:00 Test Item Value Reference Range Interpretation Comments Eosinophils (test code = 5.6 See_Comment [A utomated message] The Eosinophils) system which ge nerated this result tra nsmitted reference range : <=4.0. The reference r yadira was not used to int erpret this result as normal/abnormal . [facility]anoFctnsehUOKCRCUQNA0745-33-04 15:12:00 Test Item Value Reference Range Interpretation Comments Basophils # (test code 0.1 See_Comment [Aut omated message] The = Basophils #) system which generated this result tra nsmitted reference range : <=0.2. The reference r yadira was not used to int erpret this result as normal/abnormal . [facility]anoLfmonphEBVBJFVEWD5687-61-91 15:12:00 Test Item Value Reference Range Interpretation Comments Eosinophils # (test code 0.5 See_Comment [A utomated message] The = Eosinophils #) system whic h generated this result tra nsmitted reference range : <=0.5. The reference r yadira was not used to int erpret this result as normal/abnormal . [facility] PlanoQdszheoTLWADAZIMP0401-31-26 15:12:00 Test Item Value Reference Range Interpretation Comments Monocytes # (test code 1.0 See_Comment [Aut omated message] The = Monocytes #) system which generated this result tra nsmitted reference range : <=0.8. The reference r yadira was not used to int erpret this result as normal/abnormal . [facility]anoPnazrabLHXXLTEBWF4347-33-66 15:12:00 Test Item Value Reference Range Interpretation Comments Segs (test code = Segs) 51.9 45.0-75.0 [facility]anoOexnphnBMDIQYGYCN1301-49-79 15:12:00 Test Item Value Reference Range Interpretation Comments Lymphocytes (test code = Lymphocytes) 30.4 20.0-40.0 [place] [id number] 15:12:00 Test Item Value Reference Range Interpretation Comments Lacosamide Lvl (test code = Lacosamide 6.3 Lvl) [place] [id number] 15:12:00 Test Item Value Reference Range Interpretation Comments Carbamaz Lvl (test code = Carbamaz Lvl) no gt 8.0-12.0 [facility] SystemMineralRightsWorldwide.[facility] [id number] 15:12:00 Test Item Value Reference Range Interpretation Comments ALANINE AMINOTRANSFERASE 28 See_Comment [A utomated message] (test code = ALANINE The sys tem which AMINOTRANSFERASE) generated this result transmitted ref erence range: <=65. Th e reference range was not used to int erpret this result as normal/abnormal . [facility]2014-02-25 15:12:00 Test Item Value Reference Range Interpretation Comments Albumin Lvl (test code = Albumin Lvl) 4.1 3.5-5.0 [facility] SystemMineralRightsWorldwide.[facility] [id number] 15:12:00 Test Item Value Reference Range Interpretation Comments Bili Direct (test code 0.1 See_Comment [Aut omated message] The = Bili Direct) system which generated this result tra nsmitted reference range : <=0.3. The reference r yadira was not used to int erpret this result as meme l/abnormal. [facility]2014-02-25 15:12:00 Test Item Value Reference Range Interpretation Comments Alk Phos (test code = Alk Phos) 99 39-136 [facility]2014-02-25 15:12:00 Test Item Value Reference Range Interpretation Comments Bili Total (test code = Bili Total) 0.4 0.2-1.3 [facility]2014-02-25 15:12:00 Test Item Value Reference Range Interpretation Comments ASPARTATE TRANSAMINASE 13 See_Comment [Aut omated message] (test code = ASPARTATE The s ystem which TRANSAMINASE) generated this result transmitted ref erence range: <=37. Th e reference range was not used to interpr et this result as normal/abnormal . [facility]2014-02-25 15:12:00 Test Item Value Reference Range Interpretation Comments Total Protein (test code = Total 7.2 6.4-8.4 Protein) [facility]2014-02-25 15:12:00 Test Item Value Reference Range Interpretation Comments Globulin (test code = Globulin) 3.1 2.0-4.0 [facility]2014-02-25 15:12:00 Test Item Value Reference Range Interpretation Comments Bili Indirect (test 0.3 See_Comment [Automa michelle message] The code = Bili Indirect) system which generated this result tra nsmitted reference range : <=1.0. The reference r yadira was not used to int erpret this result as normal/abnormal . [facility]2014-02-25 15:12:00 Test Item Value Reference Range Interpretation Comments A/G Ratio (test code = A/G Ratio) 1.3 0.7-1.6 [facility] HospitalOpdrpwnBLZDAQPQQGZK8390-46-44 15:12:00 Test Item Value Reference Range Interpretation Comments AGAP (test code = AGAP) 12.2 10.0-20.0 [facility] HospitalPzfvufzWNUKDYGPBJEW0291-24-93 15:12:00 Test Item Value Reference Range Interpretation Comments eGFR (test code = eGFR) 119 [facility] HospitalDpqxcpoQZOFEVLHUKQP2993-32-35 15:12:00 Test Item Value Reference Range Interpretation Comments BUN (test code = BUN) 6 7-22 [facility] HospitalAlitrqxFTIMZLHRFBRW6852-88-78 15:12:00 Test Item Value Reference Range Interpretation Comments Glucose Lvl (test code = Glucose Lvl) 77 70-99 [facility] HospitalBckjzsxFGMUMUDDBWHA1198-75-50 15:12:00 Test Item Value Reference Range Interpretation Comments Creatinine Lvl (test code = Creatinine 0.9 0.5-1.4 Lvl) [facility] HospitalZubswttIBUKQDUADBFP7471-39-52 15:12:00 Test Item Value Reference Range Interpretation Comments Sodium Lvl (test code = Sodium Lvl) 141 135-145 [facility] HospitalBkxxiecFRRCSDWLFRSH6621-67-30 15:12:00 Test Item Value Reference Range Interpretation Comments Calcium Lvl (test code = Calcium Lvl) 9.4 8.5-10.5 [facility] HospitalMljoplkYKTMSPEECSJK9826-05-75 15:12:00 Test Item Value Reference Range Interpretation Comments CO2 (test code = CO2) 30 24-32 [facility] HospitalVstbzbuAFUSEZLJKXOW3406-66-33 15:12:00 Test Item Value Reference Range Interpretation Comments Chloride Lvl (test code = Chloride Lvl) 102 95-109 [facility] HospitalDatgzmuPTDTAKMRSFZU1294-75-60 15:12:00 Test Item Value Reference Range Interpretation Comments Potassium Lvl (test code = Potassium 3.2 3.5-5.1 Lvl) [facility]anoDybkwluPQXRSVTQZL2345-05-86 15:12:00 Test Item Value Reference Range Interpretation Comments MCV (test code = MCV) 89.9 80.0-94.0 [facility]anoAxqzouhCYXOGYXGXU7077-98-12 15:12:00 Test Item Value Reference Range Interpretation Comments RDW (test code = RDW) 13.1 11.5-14.5 [facility]anoOegybxeOGICUMQKSD2643-64-02 15:12:00 Test Item Value Reference Range Interpretation Comments MCHC (test code = MCHC) 34.8 32.0-36.0 [facility]anoWeqtkzhHEHORYZBTH5367-22-84 15:12:00 Test Item Value Reference Range Interpretation Comments MCH (test code = MCH) 31.3 pg 27.0-31.0 [facility] PlanoMnppnhvZSDDLKNPKM9075-89-72 15:12:00 Test Item Value Reference Range Interpretation Comments Hct (test code = Hct) 42.0 42.0-54.0 [facility] PlanoEjklvadKLBBCGIOXT3942-45-83 15:12:00 Test Item Value Reference Range Interpretation Comments Hgb (test code = Hgb) 14.6 14.0-18.0 [facility] PlanoBnamcuyRRXFFAWRZE3871-68-64 15:12:00 Test Item Value Reference Range Interpretation Comments RBC X 10x6 (test code = RBC X 10x6) 4.67 4.70-6.10 [facility]qotsrtRTNESOLYKX6734-75-78 15:12:00 Test Item Value Reference Range Interpretation Comments WBC X 10x3 (test code = WBC X 10x3) 8.3 3.7-10.4 [facility]QqznqdhJJPVIBTYWE7404-39-93 15:12:00 Test Item Value Reference Range Interpretation Comments Platelet (test code = Platelet) 275 133-450 [facility]anoXroqifjPPOYSNUSQU5514-31-98 15:12:00 Test Item Value Reference Range Interpretation Comments MPV (test code = MPV) 8.2 7.4-10.4 [facility]anoLjmmybgPFFBGFAXXL3686-43-50 15:12:00 Test Item Value Reference Range Interpretation Comments Monocytes (test code = Monocytes) 11.4 2.0-12.0 [facility]anoRyzqjeyPGEYNCYQOF4532-10-85 15:12:00 Test Item Value Reference Range Interpretation Comments Segs-Bands # (test code = Segs-Bands #) 4.3 1.5-8.1 [facility]anoFykbifqXIZSMHISZG9217-13-01 15:12:00 Test Item Value Reference Range Interpretation Comments Basophils (test code = 0.7 See_Comment [Aut omated message] The Basophils) system which ge nerated this result tra nsmitted reference range : <=1.0. The reference r yadira was not used to int erpret this result as normal/abnormal . [facility]anoVixerigTGUSSHWQSH8404-86-74 15:12:00 Test Item Value Reference Range Interpretation Comments Lymphocytes # (test code = Lymphocytes 2.5 1.0-5.5 #) [facility]anoQjddomjTLQZGHQECP0663-58-36 15:12:00 Test Item Value Reference Range Interpretation Comments Eosinophils (test code = 5.6 See_Comment [A utomated message] The Eosinophils) system which ge nerated this result tra nsmitted reference range : <=4.0. The reference r yadira was not used to int erpret this result as normal/abnormal . [facility]anoBjypfshGGSJFACJNN0392-07-22 15:12:00 Test Item Value Reference Range Interpretation Comments Basophils # (test code 0.1 See_Comment [Aut omated message] The = Basophils #) system which generated this result tra nsmitted reference range : <=0.2. The reference r yadira was not used to int erpret this result as normal/abnormal . [facility]anoCatikuwKWCEJDFLAT6139-96-78 15:12:00 Test Item Value Reference Range Interpretation Comments Eosinophils # (test code 0.5 See_Comment [A utomated message] The = Eosinophils #) system whic h generated this result tra nsmitted reference range : <=0.5. The reference r yadira was not used to int erpret this result as normal/abnormal . [facility]anoGjxjbteLGXUDIHNQJ2813-03-85 15:12:00 Test Item Value Reference Range Interpretation Comments Monocytes # (test code 1.0 See_Comment [Aut omated message] The = Monocytes #) system which generated this result tra nsmitted reference range : <=0.8. The reference r yadira was not used to int erpret this result as normal/abnormal . [facility]anoLrggvbxXOHNIAPEJL1948-09-62 15:12:00 Test Item Value Reference Range Interpretation Comments Segs (test code = Segs) 51.9 45.0-75.0 [facility]anoGdjmtzuYKLRTZSYCM6372-59-65 15:12:00 Test Item Value Reference Range Interpretation Comments Lymphocytes (test code = Lymphocytes) 30.4 20.0-40.0 [facility]GedcnglJNWSYDYOHB6665-22-86 15:12:00 Test Item Value Reference Range Interpretation Comments Lacosamide Lvl (test code = Lacosamide 6.3 Lvl) [place] [id number] 15:12:00 Test Item Value Reference Range Interpretation Comments Carbamaz Lvl (test code = Carbamaz Lvl) no gt 8.0-12.0 [facility]2014-02-25 15:12:00 Test Item Value Reference Range Interpretation Comments ALANINE AMINOTRANSFERASE 28 See_Comment [A utomated message] (test code = ALANINE The sys tem which AMINOTRANSFERASE) generated this result transmitted ref erence range: <=65. Th e reference range was not used to int erpret this result as normal/abnormal . [facility]2014-02-25 15:12:00 Test Item Value Reference Range Interpretation Comments Albumin Lvl (test code = Albumin Lvl) 4.1 3.5-5.0 [facility]2014-02-25 15:12:00 Test Item Value Reference Range Interpretation Comments Bili Direct (test code 0.1 See_Comment [Aut omated message] The = Bili Direct) system which generated this result tra nsmitted reference range : <=0.3. The reference r yadira was not used to int erpret this result as meme l/abnormal. [facility]2014-02-25 15:12:00 Test Item Value Reference Range Interpretation Comments Alk Phos (test code = Alk Phos) 99 39-136 [facility]2014-02-25 15:12:00 Test Item Value Reference Range Interpretation Comments Bili Total (test code = Bili Total) 0.4 0.2-1.3 [facility]2014-02-25 15:12:00 Test Item Value Reference Range Interpretation Comments ASPARTATE TRANSAMINASE 13 See_Comment [Aut omated message] (test code = ASPARTATE The s ystem which TRANSAMINASE) generated this result transmitted ref erence range: <=37. Th e reference range was not used to interpr et this result as normal/abnormal . [facility]2014-02-25 15:12:00 Test Item Value Reference Range Interpretation Comments Total Protein (test code = Total 7.2 6.4-8.4 Protein) [facility]2014-02-25 15:12:00 Test Item Value Reference Range Interpretation Comments Globulin (test code = Globulin) 3.1 2.0-4.0 [facility]2014-02-25 15:12:00 Test Item Value Reference Range Interpretation Comments Bili Indirect (test 0.3 See_Comment [Automa michelle message] The code = Bili Indirect) system which generated this result tra nsmitted reference range : <=1.0. The reference r yadira was not used to int erpret this result as normal/abnormal . [facility]2014-02-25 15:12:00 Test Item Value Reference Range Interpretation Comments A/G Ratio (test code = A/G Ratio) 1.3 0.7-1.6 [facility]RqswcvaDHCUIMXICHNW1758-49-85 15:12:00 Test Item Value Reference Range Interpretation Comments AGAP (test code = AGAP) 12.2 10.0-20.0 [facility] HospitalRgiorxwBLSLWBLAOTOQ7327-54-47 15:12:00 Test Item Value Reference Range Interpretation Comments eGFR (test code = eGFR) 119 [facility] HospitalTcubzxgTYMNAMKMZUDC1772-44-25 15:12:00 Test Item Value Reference Range Interpretation Comments BUN (test code = BUN) 6 7-22 [facility] HospitalGtvxulfJMCVOYNPKATH1746-27-64 15:12:00 Test Item Value Reference Range Interpretation Comments Glucose Lvl (test code = Glucose Lvl) 77 70-99 [facility] HospitalNdxgdhpKWIYKMNBEPPK6565-50-07 15:12:00 Test Item Value Reference Range Interpretation Comments Creatinine Lvl (test code = Creatinine 0.9 0.5-1.4 Lvl) [facility] HospitalKxagkioLJMAHPKOWUDY2058-90-03 15:12:00 Test Item Value Reference Range Interpretation Comments Sodium Lvl (test code = Sodium Lvl) 141 135-145 [facility] HospitalIjixepjAMYVKUWZVRBV2835-61-61 15:12:00 Test Item Value Reference Range Interpretation Comments Calcium Lvl (test code = Calcium Lvl) 9.4 8.5-10.5 [facility] HospitalUoipqyxBNVJHEUMLJIY5358-48-00 15:12:00 Test Item Value Reference Range Interpretation Comments CO2 (test code = CO2) 30 24-32 [facility] HospitalKdcyvzgNEPJITVHHLBC1003-54-53 15:12:00 Test Item Value Reference Range Interpretation Comments Chloride Lvl (test code = Chloride Lvl) 102 95-109 [facility] HospitalKjvowthHJFVJYNOUXZD5775-82-89 15:12:00 Test Item Value Reference Range Interpretation Comments Potassium Lvl (test code = Potassium 3.2 3.5-5.1 Lvl) [facility]JmxihigFANOOCHWGM3644-36-88 15:12:00 Test Item Value Reference Range Interpretation Comments MCV (test code = MCV) 89.9 80.0-94.0 [facility]anoQuqnlllCKYRTLJLGW7125-53-64 15:12:00 Test Item Value Reference Range Interpretation Comments RDW (test code = RDW) 13.1 11.5-14.5 [facility]anoBxegxoaWBKUXJVKYA0200-53-23 15:12:00 Test Item Value Reference Range Interpretation Comments MCHC (test code = MCHC) 34.8 32.0-36.0 [facility]anoAchovxqJTKKSTUCBJ3887-07-47 15:12:00 Test Item Value Reference Range Interpretation Comments MCH (test code = MCH) 31.3 pg 27.0-31.0 [facility]anoQiqpucsNXHMNTHAIY4171-47-85 15:12:00 Test Item Value Reference Range Interpretation Comments Hct (test code = Hct) 42.0 42.0-54.0 [facility]anoGojndjeWNTJSTKDCS1650-14-29 15:12:00 Test Item Value Reference Range Interpretation Comments Hgb (test code = Hgb) 14.6 14.0-18.0 [facility]anoKlwmcjzIFKFHTCKXC5691-49-98 15:12:00 Test Item Value Reference Range Interpretation Comments RBC X 10x6 (test code = RBC X 10x6) 4.67 4.70-6.10 [facility]anoIxnpdmnYZGWFHJYOI8365-60-68 15:12:00 Test Item Value Reference Range Interpretation Comments WBC X 10x3 (test code = WBC X 10x3) 8.3 3.7-10.4 [facility]anoZzllgchVCWJUNRDQW5935-32-83 15:12:00 Test Item Value Reference Range Interpretation Comments Platelet (test code = Platelet) 275 133-450 [facility]anoOxdipixSAXLLYSAFL3783-23-04 15:12:00 Test Item Value Reference Range Interpretation Comments MPV (test code = MPV) 8.2 7.4-10.4 [facility]anoQgfefniNDHJDMYDJD6622-23-46 15:12:00 Test Item Value Reference Range Interpretation Comments Monocytes (test code = Monocytes) 11.4 2.0-12.0 [facility]anoJcklymcXBWIFFTMIY1152-37-38 15:12:00 Test Item Value Reference Range Interpretation Comments Segs-Bands # (test code = Segs-Bands #) 4.3 1.5-8.1 [facility]anoUuecxnzZKSPLBQQJZ8952-86-18 15:12:00 Test Item Value Reference Range Interpretation Comments Basophils (test code = 0.7 See_Comment [Aut omated message] The Basophils) system which ge nerated this result tra nsmitted reference range : <=1.0. The reference r yadira was not used to int erpret this result as normal/abnormal . [facility]anoYcdnkzsOBDDSWVWMJ5991-98-75 15:12:00 Test Item Value Reference Range Interpretation Comments Lymphocytes # (test code = Lymphocytes 2.5 1.0-5.5 #) [facility]anoHirkgoyPGTYHIVTVR3212-86-89 15:12:00 Test Item Value Reference Range Interpretation Comments Eosinophils (test code = 5.6 See_Comment [A utomated message] The Eosinophils) system which ge nerated this result tra nsmitted reference range : <=4.0. The reference r yadira was not used to int erpret this result as normal/abnormal . [facility]anoThxmjjcNEFVZEDAGY0942-93-91 15:12:00 Test Item Value Reference Range Interpretation Comments Basophils # (test code 0.1 See_Comment [Aut omated message] The = Basophils #) system which generated this result tra nsmitted reference range : <=0.2. The reference r yadira was not used to int erpret this result as normal/abnormal . [facility]anoGrddnnsEUEUKPDODK6168-45-65 15:12:00 Test Item Value Reference Range Interpretation Comments Eosinophils # (test code 0.5 See_Comment [A utomated message] The = Eosinophils #) system whic h generated this result tra nsmitted reference range : <=0.5. The reference r yadira was not used to int erpret this result as normal/abnormal . [facility]anoBpblifpVASZJSLVNM3486-53-22 15:12:00 Test Item Value Reference Range Interpretation Comments Monocytes # (test code 1.0 See_Comment [Aut omated message] The = Monocytes #) system which generated this result tra nsmitted reference range : <=0.8. The reference r yadira was not used to int erpret this result as normal/abnormal . [facility]anoJahpstlPXOTOAQWKN7193-41-24 15:12:00 Test Item Value Reference Range Interpretation Comments Segs (test code = Segs) 51.9 45.0-75.0 [facility]anoYxtnwkvMTBEGBACCT3880-59-26 15:12:00 Test Item Value Reference Range Interpretation Comments Lymphocytes (test code = Lymphocytes) 30.4 20.0-40.0 [facility]KxzqeciMQZXCJXZZQ7366-63-20 15:12:00 Test Item Value Reference Range Interpretation Comments Lacosamide Lvl (test code = Lacosamide 6.3 Lvl) [facility] SystemMqlejlmPBZSAPUNGS5992-43-00 15:12:00 Test Item Value Reference Range Interpretation Comments Carbamaz Lvl (test code = Carbamaz Lvl) no gt 8.0-12.0 [facility]2014-02-25 15:12:00 Test Item Value Reference Range Interpretation Comments ALANINE AMINOTRANSFERASE 28 See_Comment [A utomated message] (test code = ALANINE The sys tem which AMINOTRANSFERASE) generated this result transmitted ref erence range: <=65. Th e reference range was not used to int erpret this result as normal/abnormal . [facility]2014-02-25 15:12:00 Test Item Value Reference Range Interpretation Comments Albumin Lvl (test code = Albumin Lvl) 4.1 3.5-5.0 [facility]2014-02-25 15:12:00 Test Item Value Reference Range Interpretation Comments Bili Direct (test code 0.1 See_Comment [Aut omated message] The = Bili Direct) system which generated this result tra nsmitted reference range : <=0.3. The reference r yadira was not used to int erpret this result as meme l/abnormal. [facility]2014-02-25 15:12:00 Test Item Value Reference Range Interpretation Comments Alk Phos (test code = Alk Phos) 99 39-136 [facility]2014-02-25 15:12:00 Test Item Value Reference Range Interpretation Comments Bili Total (test code = Bili Total) 0.4 0.2-1.3 [facility]2014-02-25 15:12:00 Test Item Value Reference Range Interpretation Comments ASPARTATE TRANSAMINASE 13 See_Comment [Aut omated message] (test code = ASPARTATE The s ystem which TRANSAMINASE) generated this result transmitted ref erence range: <=37. Th e reference range was not used to interpr et this result as normal/abnormal . [facility]2014-02-25 15:12:00 Test Item Value Reference Range Interpretation Comments Total Protein (test code = Total 7.2 6.4-8.4 Protein) [facility]2014-02-25 15:12:00 Test Item Value Reference Range Interpretation Comments Globulin (test code = Globulin) 3.1 2.0-4.0 [facility] [id number] 15:12:00 Test Item Value Reference Range Interpretation Comments Bili Indirect (test 0.3 See_Comment [Automa michelle message] The code = Bili Indirect) system which generated this result tra nsmitted reference range : <=1.0. The reference r yadira was not used to int erpret this result as normal/abnormal . [facility] [id number] 15:12:00 Test Item Value Reference Range Interpretation Comments A/G Ratio (test code = A/G Ratio) 1.3 0.7-1.6 [facility]burgXovvdluLVCRXXRWXZQR3585-80-57 15:12:00 Test Item Value Reference Range Interpretation Comments AGAP (test code = AGAP) 12.2 10.0-20.0 [facility] EdinburgYrzovuyUSKIXFVWXIXT6981-60-34 15:12:00 Test Item Value Reference Range Interpretation Comments eGFR (test code = eGFR) 119 [facility]inburgHcpcdmxPVIAGKBXWDHR5042-10-23 15:12:00 Test Item Value Reference Range Interpretation Comments BUN (test code = BUN) 6 7-22 [facility]inburgJioudkxDGMROCDXDQBU8885-36-95 15:12:00 Test Item Value Reference Range Interpretation Comments Glucose Lvl (test code = Glucose Lvl) 77 70-99 [facility]inburgBwwckjcJCQBIFHOPJUQ2999-23-96 15:12:00 Test Item Value Reference Range Interpretation Comments Creatinine Lvl (test code = Creatinine 0.9 0.5-1.4 Lvl) [facility]inburgLztvklxOTSVWQWBEROA4419-90-66 15:12:00 Test Item Value Reference Range Interpretation Comments Sodium Lvl (test code = Sodium Lvl) 141 135-145 [facility] EdinburgSttpulgJPJANESCAWVT1185-53-00 15:12:00 Test Item Value Reference Range Interpretation Comments Calcium Lvl (test code = Calcium Lvl) 9.4 8.5-10.5 [facility]inburgRztbqzoYLBXJGRHERWQ8734-33-82 15:12:00 Test Item Value Reference Range Interpretation Comments CO2 (test code = CO2) 30 24-32 [facility]inburgEmyxbvwEBOANHDHWYPG5513-38-88 15:12:00 Test Item Value Reference Range Interpretation Comments Chloride Lvl (test code = Chloride Lvl) 102 95-109 [facility]YyzjecoFOZSKIYFFQTG8860-40-31 15:12:00 Test Item Value Reference Range Interpretation Comments Potassium Lvl (test code = Potassium 3.2 3.5-5.1 Lvl) [facility]IsyfwvrJZJIDOYZTT4427-03-71 15:12:00 Test Item Value Reference Range Interpretation Comments MCV (test code = MCV) 89.9 80.0-94.0 [facility]anoXagzblyGCYKJXYZPN0442-66-51 15:12:00 Test Item Value Reference Range Interpretation Comments RDW (test code = RDW) 13.1 11.5-14.5 [facility]anoDeeakksSCABLPABEY2995-51-14 15:12:00 Test Item Value Reference Range Interpretation Comments MCHC (test code = MCHC) 34.8 32.0-36.0 [facility]anoMwitvemLXTGGUWYIG7132-32-97 15:12:00 Test Item Value Reference Range Interpretation Comments MCH (test code = MCH) 31.3 pg 27.0-31.0 [facility]anoCimxaypKYUCUTSSIC4145-43-27 15:12:00 Test Item Value Reference Range Interpretation Comments Hct (test code = Hct) 42.0 42.0-54.0 [facility]anoVmqfcvrZSYGOEJMAI1901-00-66 15:12:00 Test Item Value Reference Range Interpretation Comments Hgb (test code = Hgb) 14.6 14.0-18.0 [facility]anoRfxmchuHBZEMKZNLC2430-54-26 15:12:00 Test Item Value Reference Range Interpretation Comments RBC X 10x6 (test code = RBC X 10x6) 4.67 4.70-6.10 [facility]anoIgnvkdxFDZSYMFTHI1351-35-27 15:12:00 Test Item Value Reference Range Interpretation Comments WBC X 10x3 (test code = WBC X 10x3) 8.3 3.7-10.4 [facility]anoXspzwpzSWTFTVGZYY0994-11-21 15:12:00 Test Item Value Reference Range Interpretation Comments Platelet (test code = Platelet) 275 133-450 [facility] PlanoVtacqlxBXTHPVVUPE6071-07-90 15:12:00 Test Item Value Reference Range Interpretation Comments MPV (test code = MPV) 8.2 7.4-10.4 [facility] PlanoDloymmoSHWVRSMWKH4698-30-86 15:12:00 Test Item Value Reference Range Interpretation Comments Monocytes (test code = Monocytes) 11.4 2.0-12.0 [facility] PlanoZxrqjcyWGHBZLTARM8235-20-62 15:12:00 Test Item Value Reference Range Interpretation Comments Segs-Bands # (test code = Segs-Bands #) 4.3 1.5-8.1 [facility]anoKjsjxilUOOGLJPQYB0627-77-27 15:12:00 Test Item Value Reference Range Interpretation Comments Basophils (test code = 0.7 See_Comment [Aut omated message] The Basophils) system which ge nerated this result tra nsmitted reference range : <=1.0. The reference r yadira was not used to int erpret this result as normal/abnormal . [facility]anoIufghyaDBLQFVYXVK2777-41-54 15:12:00 Test Item Value Reference Range Interpretation Comments Lymphocytes # (test code = Lymphocytes 2.5 1.0-5.5 #) [facility]anoCzcfvvdWXJUIVRKSW0246-48-35 15:12:00 Test Item Value Reference Range Interpretation Comments Eosinophils (test code = 5.6 See_Comment [A utomated message] The Eosinophils) system which ge nerated this result tra nsmitted reference range : <=4.0. The reference r yadira was not used to int erpret this result as normal/abnormal . [facility]anoGjvtaibIQCEHVONDM9557-82-83 15:12:00 Test Item Value Reference Range Interpretation Comments Basophils # (test code 0.1 See_Comment [Aut omated message] The = Basophils #) system which generated this result tra nsmitted reference range : <=0.2. The reference r yadira was not used to int erpret this result as normal/abnormal . [facility]anoAmzynjrUFQLTNFONV7462-23-77 15:12:00 Test Item Value Reference Range Interpretation Comments Eosinophils # (test code 0.5 See_Comment [A utomated message] The = Eosinophils #) system whic h generated this result tra nsmitted reference range : <=0.5. The reference r yadira was not used to int erpret this result as normal/abnormal . [facility]anoAvcoxfsBJEHMOVZEE3086-21-68 15:12:00 Test Item Value Reference Range Interpretation Comments Monocytes # (test code 1.0 See_Comment [Aut omated message] The = Monocytes #) system which generated this result tra nsmitted reference range : <=0.8. The reference r yadira was not used to int erpret this result as normal/abnormal . [facility]anoPdkfyolWOTAYYDPYJ2005-42-97 15:12:00 Test Item Value Reference Range Interpretation Comments Segs (test code = Segs) 51.9 45.0-75.0 [facility]anoCeqzvrcJEWIIPVFYN5372-37-96 15:12:00 Test Item Value Reference Range Interpretation Comments Lymphocytes (test code = Lymphocytes) 30.4 20.0-40.0 [place] [id number] 15:12:00 Test Item Value Reference Range Interpretation Comments Lacosamide Lvl (test code = Lacosamide 6.3 Lvl) [place] [id number] 15:12:00 Test Item Value Reference Range Interpretation Comments Carbamaz Lvl (test code = Carbamaz Lvl) no gt 8.0-12.0 [facility]2014-02-25 15:12:00 Test Item Value Reference Range Interpretation Comments ALANINE AMINOTRANSFERASE 28 See_Comment [A utomated message] (test code = ALANINE The sys tem which AMINOTRANSFERASE) generated this result transmitted ref erence range: <=65. Th e reference range was not used to int erpret this result as normal/abnormal . [facility]2014-02-25 15:12:00 Test Item Value Reference Range Interpretation Comments Albumin Lvl (test code = Albumin Lvl) 4.1 3.5-5.0 [facility]2014-02-25 15:12:00 Test Item Value Reference Range Interpretation Comments Bili Direct (test code 0.1 See_Comment [Aut omated message] The = Bili Direct) system which generated this result tra nsmitted reference range : <=0.3. The reference r yadira was not used to int erpret this result as meme l/abnormal. [facility]2014-02-25 15:12:00 Test Item Value Reference Range Interpretation Comments Alk Phos (test code = Alk Phos) 99 39-136 [facility]2014-02-25 15:12:00 Test Item Value Reference Range Interpretation Comments Bili Total (test code = Bili Total) 0.4 0.2-1.3 [facility]2014-02-25 15:12:00 Test Item Value Reference Range Interpretation Comments ASPARTATE TRANSAMINASE 13 See_Comment [Aut omated message] (test code = ASPARTATE The s ystem which TRANSAMINASE) generated this result transmitted ref erence range: <=37. Th e reference range was not used to interpr et this result as normal/abnormal . [facility] [id number] 15:12:00 Test Item Value Reference Range Interpretation Comments Total Protein (test code = Total 7.2 6.4-8.4 Protein) [facility]MineralRightsWorldwide.[facility] [id number] 15:12:00 Test Item Value Reference Range Interpretation Comments Globulin (test code = Globulin) 3.1 2.0-4.0 [facility]Ge[facility] JMQNF0927-06-75 15:12:00 Test Item Value Reference Range Interpretation Comments Bili Indirect (test 0.3 See_Comment [Automa michelle message] The code = Bili Indirect) system which generated this result tra nsmitted reference range : <=1.0. The reference r yadira was not used to int erpret this result as normal/abnormal . [facility]Ge[facility] [id number] 15:12:00 Test Item Value Reference Range Interpretation Comments A/G Ratio (test code = A/G Ratio) 1.3 0.7-1.6 [facility]SigqzmaKFUJVQXLVKBV0509-64-49 15:12:00 Test Item Value Reference Range Interpretation Comments AGAP (test code = AGAP) 12.2 10.0-20.0 [facility]ShhmkbeDCQZSEDRUCXU8781-75-21 15:12:00 Test Item Value Reference Range Interpretation Comments eGFR (test code = eGFR) 119 [facility] HospitalQwpzvurHTQLBCZFUQMI2530-63-74 15:12:00 Test Item Value Reference Range Interpretation Comments BUN (test code = BUN) 6 7-22 [facility]RektfvgVVQQSACZCHMI2470-93-36 15:12:00 Test Item Value Reference Range Interpretation Comments Glucose Lvl (test code = Glucose Lvl) 77 70-99 [facility] HospitalSheicalWFISXWWHMVLO2597-12-13 15:12:00 Test Item Value Reference Range Interpretation Comments Creatinine Lvl (test code = Creatinine 0.9 0.5-1.4 Lvl) [facility] HospitalQqtmdlwFHWKRXRCWQWX0283-34-00 15:12:00 Test Item Value Reference Range Interpretation Comments Sodium Lvl (test code = Sodium Lvl) 141 135-145 [facility] HospitalOfcxqldHETQUJPAFQUJ7785-48-72 15:12:00 Test Item Value Reference Range Interpretation Comments Calcium Lvl (test code = Calcium Lvl) 9.4 8.5-10.5 [facility] HospitalNotsedyGOLYXYHWHIRO9560-34-47 15:12:00 Test Item Value Reference Range Interpretation Comments CO2 (test code = CO2) 30 24-32 [facility] HospitalHimojrtNXZKZZNANJPE2253-13-38 15:12:00 Test Item Value Reference Range Interpretation Comments Chloride Lvl (test code = Chloride Lvl) 102 95-109 [facility] HospitalEpyxtmsIHUYMQQMPQLI5367-90-55 15:12:00 Test Item Value Reference Range Interpretation Comments Potassium Lvl (test code = Potassium 3.2 3.5-5.1 Lvl) [facility]AwpgucxPLAUEQQHJF3668-67-16 15:12:00 Test Item Value Reference Range Interpretation Comments MCV (test code = MCV) 89.9 80.0-94.0 [facility]anoDtijxziTXQLQCBQOG9082-25-71 15:12:00 Test Item Value Reference Range Interpretation Comments RDW (test code = RDW) 13.1 11.5-14.5 [facility]anoWiypmzkMPUOMJHWWF8901-96-02 15:12:00 Test Item Value Reference Range Interpretation Comments MCHC (test code = MCHC) 34.8 32.0-36.0 [facility]anoAormbrkHMVATGPCJM1639-18-40 15:12:00 Test Item Value Reference Range Interpretation Comments MCH (test code = MCH) 31.3 pg 27.0-31.0 [facility]anoFnbihnoAQEXZDNXKB0735-44-87 15:12:00 Test Item Value Reference Range Interpretation Comments Hct (test code = Hct) 42.0 42.0-54.0 [facility]anoZnoskixVQNCVHAKUY2748-42-96 15:12:00 Test Item Value Reference Range Interpretation Comments Hgb (test code = Hgb) 14.6 14.0-18.0 [facility]anoYkebaaqKIBQQLUDRO6874-46-70 15:12:00 Test Item Value Reference Range Interpretation Comments RBC X 10x6 (test code = RBC X 10x6) 4.67 4.70-6.10 [facility]anoSlmkmhaNVSSGQZEWK1123-37-23 15:12:00 Test Item Value Reference Range Interpretation Comments WBC X 10x3 (test code = WBC X 10x3) 8.3 3.7-10.4 [facility]anoRjrtbfbFBZUCOHNDD8895-04-88 15:12:00 Test Item Value Reference Range Interpretation Comments Platelet (test code = Platelet) 275 133-450 [facility]anoAmrrgvmCSMMPCDNLD0045-47-79 15:12:00 Test Item Value Reference Range Interpretation Comments MPV (test code = MPV) 8.2 7.4-10.4 [facility]anoUfgqvkmEEHLRAAIJF2983-28-15 15:12:00 Test Item Value Reference Range Interpretation Comments Monocytes (test code = Monocytes) 11.4 2.0-12.0 [facility]anoEvyiyakGIILMUJUZO3005-96-92 15:12:00 Test Item Value Reference Range Interpretation Comments Segs-Bands # (test code = Segs-Bands #) 4.3 1.5-8.1 [facility]anoWhoehyiEAUTUPACNP7466-96-33 15:12:00 Test Item Value Reference Range Interpretation Comments Basophils (test code = 0.7 See_Comment [Aut omated message] The Basophils) system which ge nerated this result tra nsmitted reference range : <=1.0. The reference r yadira was not used to int erpret this result as normal/abnormal . [facility]anoJgvfznfOKTZDFMBSG8732-56-79 15:12:00 Test Item Value Reference Range Interpretation Comments Lymphocytes # (test code = Lymphocytes 2.5 1.0-5.5 #) [facility]anoMhrcsalIATRMVXDVF7904-80-34 15:12:00 Test Item Value Reference Range Interpretation Comments Eosinophils (test code = 5.6 See_Comment [A utomated message] The Eosinophils) system which ge nerated this result tra nsmitted reference range : <=4.0. The reference r yadira was not used to int erpret this result as normal/abnormal . [facility]anoJtkwlfzWBIOSEWWSG0130-19-33 15:12:00 Test Item Value Reference Range Interpretation Comments Basophils # (test code 0.1 See_Comment [Aut omated message] The = Basophils #) system which generated this result tra nsmitted reference range : <=0.2. The reference r yadira was not used to int erpret this result as normal/abnormal . [facility]anoXrnrtwvIKWPURXCPB4596-83-38 15:12:00 Test Item Value Reference Range Interpretation Comments Eosinophils # (test code 0.5 See_Comment [A utomated message] The = Eosinophils #) system whic h generated this result tra nsmitted reference range : <=0.5. The reference r yadira was not used to int erpret this result as normal/abnormal . [facility]anoTbyiftrGFJEOALASA4058-06-79 15:12:00 Test Item Value Reference Range Interpretation Comments Monocytes # (test code 1.0 See_Comment [Aut omated message] The = Monocytes #) system which generated this result tra nsmitted reference range : <=0.8. The reference r yadira was not used to int erpret this result as normal/abnormal . [facility]anoLgprasiGBQCQEXUOV0311-73-44 15:12:00 Test Item Value Reference Range Interpretation Comments Segs (test code = Segs) 51.9 45.0-75.0 [facility]anoCipxarjERBPLWTQSK5633-91-64 15:12:00 Test Item Value Reference Range Interpretation Comments Lymphocytes (test code = Lymphocytes) 30.4 20.0-40.0 [place] [id number] 15:12:00 Test Item Value Reference Range Interpretation Comments Lacosamide Lvl (test code = Lacosamide 6.3 Lvl) [place] [id number] 15:12:00 Test Item Value Reference Range Interpretation Comments Carbamaz Lvl (test code = Carbamaz Lvl) no gt 8.0-12.0 [facility]anoBnaneulDIGQUSUAFM6715-43-81 20:00:46 Test Item Value Reference Range Interpretation Comments MCV (test code = MCV) 91.2 80.0-94.0 N [facility]anoBviwqedMHMFBEWPJU6630-53-40 20:00:46 Test Item Value Reference Range Interpretation Comments Hct (test code = Hct) 39.0 42.0-54.0 L [facility]anoHuvjlolCPZPGOWHUH7308-91-35 20:00:46 Test Item Value Reference Range Interpretation Comments MPV (test code = MPV) 8.3 7.4-10.4 N [facility]anoOzsknehOFYBYICPGH1526-40-71 20:00:46 Test Item Value Reference Range Interpretation Comments Platelet (test code = Platelet) 279 133-450 N [facility]anoJtumuxsYQECOEWFJW7841-86-84 20:00:46 Test Item Value Reference Range Interpretation Comments RDW (test code = RDW) 13.3 11.5-14.5 N [facility]anoCfswrllEGCUGFWDUR5091-79-99 20:00:46 Test Item Value Reference Range Interpretation Comments MCHC (test code = MCHC) 33.4 32.0-36.0 N [facility]anoKjtykmeNEEXEBIIED6708-49-77 20:00:46 Test Item Value Reference Range Interpretation Comments MCH (test code = MCH) 30.5 pg 27.0-31.0 N [facility]anoYkozfuoBNVEUKZHJJ9832-40-84 20:00:46 Test Item Value Reference Range Interpretation Comments WBC X 10x3 (test code = WBC X 10x3) 15.3 3.7-10.4 H [facility]anoAqyzwfbLTQHOZSQIP6800-15-49 20:00:46 Test Item Value Reference Range Interpretation Comments RBC X 10x6 (test code = RBC X 10x6) 4.27 4.70-6.10 L [facility]anoWxqtrcjTTMDZWIGHJ1395-55-51 20:00:46 Test Item Value Reference Range Interpretation Comments Hgb (test code = Hgb) 13.0 14.0-18.0 L [facility]anoKeomeavNVLTZWBGUR0319-43-86 20:00:46 Test Item Value Reference Range Interpretation Comments Monocytes (test code = Monocytes) 6.7 2.0-12.0 N [facility]anoQfvhgtzUHHPHEDPYR8954-63-78 20:00:46 Test Item Value Reference Range Interpretation Comments Lymphocytes (test code = Lymphocytes) 13.2 20.0-40.0 L [facility] PlanoGomylfeBDGWNENVWJ9823-27-33 20:00:46 Test Item Value Reference Range Interpretation Comments Segs (test code = Segs) 72.2 45.0-75.0 N [facility] PlanoZhfjizwWCFQLKTDSY1825-50-95 20:00:46 Test Item Value Reference Range Interpretation Comments Eosinophils (test code = 7.8 See_Comment H [A utomated message] The Eosinophils) system which ge nerated this result tra nsmitted reference range : <=4.0. The reference r yadira was not used to int erpret this result as normal/abnormal . [facility] PlanoLymucbnRWFAAHPUBH6896-46-56 20:00:46 Test Item Value Reference Range Interpretation Comments Segs-Bands # (test code = Segs-Bands #) 11.1 1.5-8.1 H [facility]anoDsoniqvVQETZVXZKU5218-32-35 20:00:46 Test Item Value Reference Range Interpretation Comments Basophils (test code = 0.1 See_Comment N [Aut omated message] The Basophils) system which ge nerated this result tra nsmitted reference range : <=1.0. The reference r yadira was not used to int erpret this result as normal/abnormal . [facility]anoVnerepmSZVGYRHBUW7320-56-26 20:00:46 Test Item Value Reference Range Interpretation Comments Lymphocytes # (test code = Lymphocytes 2.0 1.0-5.5 N #) [facility]anoKhhjnuoGDPCDGUUVN4083-80-24 20:00:46 Test Item Value Reference Range Interpretation Comments Eosinophils # (test code 1.2 See_Comment H [A utomated message] The = Eosinophils #) system whic h generated this result tra nsmitted reference range : <=0.5. The reference r yadira was not used to int erpret this result as normal/abnormal . [facility]anoQewdzubCMQYFKZJEG8868-13-42 20:00:46 Test Item Value Reference Range Interpretation Comments Monocytes # (test code 1.0 See_Comment H [Aut omated message] The = Monocytes #) system which generated this result tra nsmitted reference range : <=0.8. The reference r yadira was not used to int erpret this result as normal/abnormal . [facility]anoMxywbkvHRRPMLTZSJ4666-53-90 20:00:46 Test Item Value Reference Range Interpretation Comments MCV (test code = MCV) 91.2 80.0-94.0 N [facility]anoQsdvbkjNUGURTTISK1429-55-50 20:00:46 Test Item Value Reference Range Interpretation Comments Hct (test code = Hct) 39.0 42.0-54.0 L [facility] PlanoZtqyacqNOCYFVEYNQ6500-33-69 20:00:46 Test Item Value Reference Range Interpretation Comments MPV (test code = MPV) 8.3 7.4-10.4 N [facility]anoVercmcdPMCKEXNHXB0653-93-62 20:00:46 Test Item Value Reference Range Interpretation Comments Platelet (test code = Platelet) 279 133-450 N [facility] PlanoIykiimeMYNLNZTKNY8405-01-76 20:00:46 Test Item Value Reference Range Interpretation Comments RDW (test code = RDW) 13.3 11.5-14.5 N [facility]anoUpafqwwEFINMZHCCK3626-79-52 20:00:46 Test Item Value Reference Range Interpretation Comments MCHC (test code = MCHC) 33.4 32.0-36.0 N [facility] PlanoRjquoajPOTIGSSBXS7333-69-02 20:00:46 Test Item Value Reference Range Interpretation Comments MCH (test code = MCH) 30.5 pg 27.0-31.0 N [facility] PlanoLsecqroYSEGIFYANU8251-08-56 20:00:46 Test Item Value Reference Range Interpretation Comments WBC X 10x3 (test code = WBC X 10x3) 15.3 3.7-10.4 H [facility]anoCuvbidxNRNTCXFQFS1516-11-19 20:00:46 Test Item Value Reference Range Interpretation Comments RBC X 10x6 (test code = RBC X 10x6) 4.27 4.70-6.10 L [facility]anoDdjutmtYHWONARNUZ9960-53-25 20:00:46 Test Item Value Reference Range Interpretation Comments Hgb (test code = Hgb) 13.0 14.0-18.0 L [facility]anoCmxlnokJNONDINNQW0565-89-73 20:00:46 Test Item Value Reference Range Interpretation Comments Monocytes (test code = Monocytes) 6.7 2.0-12.0 N [facility]anoXqoedviVSPDLAEXIF9208-77-70 20:00:46 Test Item Value Reference Range Interpretation Comments Lymphocytes (test code = Lymphocytes) 13.2 20.0-40.0 L [facility] PlanoRllweesBJFCWTYMGL1124-07-61 20:00:46 Test Item Value Reference Range Interpretation Comments Segs (test code = Segs) 72.2 45.0-75.0 N [facility]anoWxazudlJPYBXYMRUS4028-17-00 20:00:46 Test Item Value Reference Range Interpretation Comments Eosinophils (test code = 7.8 See_Comment H [A utomated message] The Eosinophils) system which ge nerated this result tra nsmitted reference range : <=4.0. The reference r yadira was not used to int erpret this result as normal/abnormal . [facility]anoNuvsytgCCHVTIWWYS9123-50-91 20:00:46 Test Item Value Reference Range Interpretation Comments Segs-Bands # (test code = Segs-Bands #) 11.1 1.5-8.1 H [facility]anoGjtksegQYNPZXJUKB9749-94-80 20:00:46 Test Item Value Reference Range Interpretation Comments Basophils (test code = 0.1 See_Comment N [Aut omated message] The Basophils) system which ge nerated this result tra nsmitted reference range : <=1.0. The reference r yadira was not used to int erpret this result as normal/abnormal . [facility]anoJosclrxDXIBHSMFTV6379-63-77 20:00:46 Test Item Value Reference Range Interpretation Comments Lymphocytes # (test code = Lymphocytes 2.0 1.0-5.5 N #) [facility]anoIppbbbxYGDRPZKAYH4880-22-76 20:00:46 Test Item Value Reference Range Interpretation Comments Eosinophils # (test code 1.2 See_Comment H [A utomated message] The = Eosinophils #) system whic h generated this result tra nsmitted reference range : <=0.5. The reference r yadira was not used to int erpret this result as normal/abnormal . [facility] PlanoRzsamanKGWXPCXLBV1583-52-02 20:00:46 Test Item Value Reference Range Interpretation Comments Monocytes # (test code 1.0 See_Comment H [Aut omated message] The = Monocytes #) system which generated this result tra nsmitted reference range : <=0.8. The reference r yadira was not used to int erpret this result as normal/abnormal . [facility]anoAthvxywEVWHRLMUJV3447-12-51 20:00:46 Test Item Value Reference Range Interpretation Comments MCV (test code = MCV) 91.2 80.0-94.0 N [facility]anoXcyubnzXXDLAYHERC4378-50-09 20:00:46 Test Item Value Reference Range Interpretation Comments Hct (test code = Hct) 39.0 42.0-54.0 L [facility]anoMlclczqISBUCYVFNT6470-68-50 20:00:46 Test Item Value Reference Range Interpretation Comments MPV (test code = MPV) 8.3 7.4-10.4 N [facility]anoGgqlmyhEDGZFPALEZ4000-23-54 20:00:46 Test Item Value Reference Range Interpretation Comments Platelet (test code = Platelet) 279 133-450 N [facility]anoFketlqtXFGYRSDTXV0583-17-07 20:00:46 Test Item Value Reference Range Interpretation Comments RDW (test code = RDW) 13.3 11.5-14.5 N [facility]anoNepcbniCEQIGAQGWD5712-41-91 20:00:46 Test Item Value Reference Range Interpretation Comments MCHC (test code = MCHC) 33.4 32.0-36.0 N [facility]anoGzydatpEOBLRNVUOZ6605-45-88 20:00:46 Test Item Value Reference Range Interpretation Comments MCH (test code = MCH) 30.5 pg 27.0-31.0 N [facility]anoSvufxbbVWBHWPYZGU5310-94-55 20:00:46 Test Item Value Reference Range Interpretation Comments WBC X 10x3 (test code = WBC X 10x3) 15.3 3.7-10.4 H [facility]anoOeqcajbLDCFLMSKWV4269-08-87 20:00:46 Test Item Value Reference Range Interpretation Comments RBC X 10x6 (test code = RBC X 10x6) 4.27 4.70-6.10 L [facility]anoMhsintvARENCFRQQQ3885-99-19 20:00:46 Test Item Value Reference Range Interpretation Comments Hgb (test code = Hgb) 13.0 14.0-18.0 L [facility]anoNhsgxmtCOZNFXFMEM4821-72-11 20:00:46 Test Item Value Reference Range Interpretation Comments Monocytes (test code = Monocytes) 6.7 2.0-12.0 N [facility]anoFqyyrmmAOXXCLNINR8457-00-85 20:00:46 Test Item Value Reference Range Interpretation Comments Lymphocytes (test code = Lymphocytes) 13.2 20.0-40.0 L [facility]anoAhrkdeaGCWKUUJIEY8041-34-64 20:00:46 Test Item Value Reference Range Interpretation Comments Segs (test code = Segs) 72.2 45.0-75.0 N [facility] PlanoBesskapSKTICSYFCT8119-13-21 20:00:46 Test Item Value Reference Range Interpretation Comments Eosinophils (test code = 7.8 See_Comment H [A utomated message] The Eosinophils) system which ge nerated this result tra nsmitted reference range : <=4.0. The reference r yadira was not used to int erpret this result as normal/abnormal . [facility]anoCngspihFWPOBEWAAF1844-48-16 20:00:46 Test Item Value Reference Range Interpretation Comments Segs-Bands # (test code = Segs-Bands #) 11.1 1.5-8.1 H [facility] PlanoBaysrlrOASCFCPZHC8309-03-34 20:00:46 Test Item Value Reference Range Interpretation Comments Basophils (test code = 0.1 See_Comment N [Aut omated message] The Basophils) system which ge nerated this result tra nsmitted reference range : <=1.0. The reference r yadira was not used to int erpret this result as normal/abnormal . [facility]anoXcgtskfGMZVTKHLHG8658-01-33 20:00:46 Test Item Value Reference Range Interpretation Comments Lymphocytes # (test code = Lymphocytes 2.0 1.0-5.5 N #) [facility]anoBjatpkeWUMOGRADNK9162-23-86 20:00:46 Test Item Value Reference Range Interpretation Comments Eosinophils # (test code 1.2 See_Comment H [A utomated message] The = Eosinophils #) system whic h generated this result tra nsmitted reference range : <=0.5. The reference r yadira was not used to int erpret this result as normal/abnormal . [facility] PlanoYrmiyksEZYAWAXSZA6975-03-54 20:00:46 Test Item Value Reference Range Interpretation Comments Monocytes # (test code 1.0 See_Comment H [Aut omated message] The = Monocytes #) system which generated this result tra nsmitted reference range : <=0.8. The reference r yadira was not used to int erpret this result as normal/abnormal . [facility]anoKqjvkuxHNIUYLNIQS4531-21-72 20:00:46 Test Item Value Reference Range Interpretation Comments MCV (test code = MCV) 91.2 80.0-94.0 N [facility] PlanoZdvkxxuMHVRSPJJLA2557-66-69 20:00:46 Test Item Value Reference Range Interpretation Comments Hct (test code = Hct) 39.0 42.0-54.0 L [facility]anoYnnuawjEWXGTMZQBP5785-11-10 20:00:46 Test Item Value Reference Range Interpretation Comments MPV (test code = MPV) 8.3 7.4-10.4 N [facility]anoKstlbdvDBUJOWDUOP3084-99-29 20:00:46 Test Item Value Reference Range Interpretation Comments Platelet (test code = Platelet) 279 133-450 N [facility]anoWeiiwvpQGLJUBLEML5710-44-73 20:00:46 Test Item Value Reference Range Interpretation Comments RDW (test code = RDW) 13.3 11.5-14.5 N [facility] PlanoHlycqrtJSADMTQPOR2490-01-22 20:00:46 Test Item Value Reference Range Interpretation Comments MCHC (test code = MCHC) 33.4 32.0-36.0 N [facility]anoPpworggYEZISDQBQJ2845-78-96 20:00:46 Test Item Value Reference Range Interpretation Comments MCH (test code = MCH) 30.5 pg 27.0-31.0 N [facility]anoOkkrpkiYGFQQPAHLS7154-39-76 20:00:46 Test Item Value Reference Range Interpretation Comments WBC X 10x3 (test code = WBC X 10x3) 15.3 3.7-10.4 H [facility]anoAjdiqswXIEKXDUZPM1197-83-33 20:00:46 Test Item Value Reference Range Interpretation Comments RBC X 10x6 (test code = RBC X 10x6) 4.27 4.70-6.10 L [facility]anoPjrvinmVMVWDZVLZB6341-75-41 20:00:46 Test Item Value Reference Range Interpretation Comments Hgb (test code = Hgb) 13.0 14.0-18.0 L [facility]anoAmvzaduRGQWPZPKGY5263-06-56 20:00:46 Test Item Value Reference Range Interpretation Comments Monocytes (test code = Monocytes) 6.7 2.0-12.0 N [facility]anoHpcykygJEDWJYIPZA9644-00-94 20:00:46 Test Item Value Reference Range Interpretation Comments Lymphocytes (test code = Lymphocytes) 13.2 20.0-40.0 L [facility]anoMpurpvnUIQCWLHOYO2126-75-28 20:00:46 Test Item Value Reference Range Interpretation Comments Segs (test code = Segs) 72.2 45.0-75.0 N [facility] PlanoLfnnfhmVHGBVVPOWA7621-86-28 20:00:46 Test Item Value Reference Range Interpretation Comments Eosinophils (test code = 7.8 See_Comment H [A utomated message] The Eosinophils) system which ge nerated this result tra nsmitted reference range : <=4.0. The reference r yadira was not used to int erpret this result as normal/abnormal . [facility] PlanoGmkvmmcPVMAQDFOZT5440-62-04 20:00:46 Test Item Value Reference Range Interpretation Comments Segs-Bands # (test code = Segs-Bands #) 11.1 1.5-8.1 H [facility]anoOtpbeedDOTTDDZBMZ3408-65-06 20:00:46 Test Item Value Reference Range Interpretation Comments Basophils (test code = 0.1 See_Comment N [Aut omated message] The Basophils) system which ge nerated this result tra nsmitted reference range : <=1.0. The reference r yadira was not used to int erpret this result as normal/abnormal . [facility] PlanoFoetzomIAXRVTCKLZ7428-51-03 20:00:46 Test Item Value Reference Range Interpretation Comments Lymphocytes # (test code = Lymphocytes 2.0 1.0-5.5 N #) [facility] PlanoUfnrcsrCEUYDVVRZE9763-18-96 20:00:46 Test Item Value Reference Range Interpretation Comments Eosinophils # (test code 1.2 See_Comment H [A utomated message] The = Eosinophils #) system whic h generated this result tra nsmitted reference range : <=0.5. The reference r yadira was not used to int erpret this result as normal/abnormal . [facility] PlanoEqqkociCYMPEOKTUE4636-53-07 20:00:46 Test Item Value Reference Range Interpretation Comments Monocytes # (test code 1.0 See_Comment H [Aut omated message] The = Monocytes #) system which generated this result tra nsmitted reference range : <=0.8. The reference r yadira was not used to int erpret this result as normal/abnormal . [facility]anoGckjehzDICWIGBYPT9185-40-50 20:00:46 Test Item Value Reference Range Interpretation Comments MCV (test code = MCV) 91.2 80.0-94.0 N [facility]anoSawpfejHXIPTVFUIM9983-05-72 20:00:46 Test Item Value Reference Range Interpretation Comments Hct (test code = Hct) 39.0 42.0-54.0 L [facility] PlanoLetnlmlHUAWDKWBJZ6201-16-23 20:00:46 Test Item Value Reference Range Interpretation Comments MPV (test code = MPV) 8.3 7.4-10.4 N [facility] PlanoHtigmdvGPFYICDDCN1170-62-42 20:00:46 Test Item Value Reference Range Interpretation Comments Platelet (test code = Platelet) 279 133-450 N [facility] PlanoJbtbdjtKMVNYOPARH6075-97-04 20:00:46 Test Item Value Reference Range Interpretation Comments RDW (test code = RDW) 13.3 11.5-14.5 [facility] [place]kMJHDWTKGZA2213-79-05 20:00:46 Test Item Value Reference Range Interpretation Comments MCHC (test code = MCHC) 33.4 32.0-36.0 N [facility] [place]RzarsirCVIURUWKIX5799-79-77 20:00:46 Test Item Value Reference Range Interpretation Comments MCH (test code = MCH) 30.5 pg 27.0-31.0 N [facility] [place]PiljwnlDMNHWHSEIU9922-82-72 20:00:46 Test Item Value Reference Range Interpretation Comments WBC X 10x3 (test code = WBC X 10x3) 15.3 3.7-10.4 H [facility] [place]PmsndbxZITXYUAKVI4425-91-60 20:00:46 Test Item Value Reference Range Interpretation Comments RBC X 10x6 (test code = RBC X 10x6) 4.27 4.70-6.10 L [facility] [place]anoHmknujgOXDTRTMVLE8648-86-44 20:00:46 Test Item Value Reference Range Interpretation Comments Hgb (test code = Hgb) 13.0 14.0-18.0 L [facility] [place]KnvucpqFGVHXHCBOU3640-66-07 20:00:46 Test Item Value Reference Range Interpretation Comments Monocytes (test code = Monocytes) 6.7 2.0-12.0 N [facility] [place]XhvnkgjXXJZNWLCZN2038-59-40 20:00:46 Test Item Value Reference Range Interpretation Comments Lymphocytes (test code = Lymphocytes) 13.2 20.0-40.0 L [facility] [place]XqfthhuUEQFZOEHCM5347-95-64 20:00:46 Test Item Value Reference Range Interpretation Comments Segs (test code = Segs) 72.2 45.0-75.0 N [facility] [place]anoFggsvxdULAZWPKJSM1149-49-64 20:00:46 Test Item Value Reference Range Interpretation Comments Eosinophils (test code = 7.8 See_Comment H [A utomated message] The Eosinophils) system which ge nerated this result tra nsmitted reference range : <=4.0. The reference r yadira was not used to int erpret this result as normal/abnormal . [facility] [place]anoWrdxljrHMWZFVYGXQ6537-95-92 20:00:46 Test Item Value Reference Range Interpretation Comments Segs-Bands # (test code = Segs-Bands #) 11.1 1.5-8.1 H [facility] [place]XyjbctlRSVSUSFFZC2166-93-78 20:00:46 Test Item Value Reference Range Interpretation Comments Basophils (test code = 0.1 See_Comment N [Aut omated message] The Basophils) system which ge nerated this result tra nsmitted reference range : <=1.0. The reference r yadira was not used to int erpret this result as normal/abnormal . [facility] [place]anoOxrkjbtSXSJJUZDDW9912-29-06 20:00:46 Test Item Value Reference Range Interpretation Comments Lymphocytes # (test code = Lymphocytes 2.0 1.0-5.5 N #) [facility] [place]anoCtroqsmVLNPKLQRLC5070-79-47 20:00:46 Test Item Value Reference Range Interpretation Comments Eosinophils # (test code 1.2 See_Comment H [A utomated message] The = Eosinophils #) system whic h generated this result tra nsmitted reference range : <=0.5. The reference r yadira was not used to int erpret this result as normal/abnormal . [facility] [place]anoMzffnouRTSIIBVLDK2650-18-02 20:00:46 Test Item Value Reference Range Interpretation Comments Monocytes # (test code 1.0 See_Comment H [Aut omated message] The = Monocytes #) system which generated this result tra nsmitted reference range : <=0.8. The reference r yadira was not used to int erpret this result as normal/abnormal . [facility] [place]anoVmgmfltWNCXTLYJMC6463-96-40 20:00:46 Test Item Value Reference Range Interpretation Comments MCV (test code = MCV) 91.2 80.0-94.0 N [facility] [place]anoYafmklkFAQJEITMMI2053-76-29 20:00:46 Test Item Value Reference Range Interpretation Comments Hct (test code = Hct) 39.0 42.0-54.0 L [facility] [place]GrugvsiJRFHCXSLSL1703-76-97 20:00:46 Test Item Value Reference Range Interpretation Comments MPV (test code = MPV) 8.3 7.4-10.4 N [facility] [place]anoDuznlwqVKFFBBDYAD6934-42-37 20:00:46 Test Item Value Reference Range Interpretation Comments Platelet (test code = Platelet) 279 133-450 N [facility] [place]anoMlchpujJMUKWFJGXQ9943-84-90 20:00:46 Test Item Value Reference Range Interpretation Comments RDW (test code = RDW) 13.3 11.5-14.5 N [facility] [place]anoRcwrtybLVRPEYRGHN7315-62-66 20:00:46 Test Item Value Reference Range Interpretation Comments MCHC (test code = MCHC) 33.4 32.0-36.0 N [facility] [place]anoBmagesmIDPQIEFBCM1653-25-79 20:00:46 Test Item Value Reference Range Interpretation Comments MCH (test code = MCH) 30.5 pg 27.0-31.0 N [facility] [place]TcxyoezMORHAEKBPI6845-08-51 20:00:46 Test Item Value Reference Range Interpretation Comments WBC X 10x3 (test code = WBC X 10x3) 15.3 3.7-10.4 H [facility] [place]anoHtzdrleNMPURLRFGX0280-89-95 20:00:46 Test Item Value Reference Range Interpretation Comments RBC X 10x6 (test code = RBC X 10x6) 4.27 4.70-6.10 L [facility] [place]KeyqvouJTMDPZCLBL9611-69-08 20:00:46 Test Item Value Reference Range Interpretation Comments Hgb (test code = Hgb) 13.0 14.0-18.0 L [facility] [place]YpobzjoEGKXOOFTOS5483-82-34 20:00:46 Test Item Value Reference Range Interpretation Comments Monocytes (test code = Monocytes) 6.7 2.0-12.0 N [facility] [place]anoLxqalahEYSSPMJAMF9031-30-79 20:00:46 Test Item Value Reference Range Interpretation Comments Lymphocytes (test code = Lymphocytes) 13.2 20.0-40.0 L [facility] [place]SblbwfuEIDCRUTJHR5133-98-58 20:00:46 Test Item Value Reference Range Interpretation Comments Segs (test code = Segs) 72.2 45.0-75.0 N [facility] [place]EksmqfyENLIGUHBSZ7607-14-35 20:00:46 Test Item Value Reference Range Interpretation Comments Eosinophils (test code = 7.8 See_Comment H [A utomated message] The Eosinophils) system which ge nerated this result tra nsmitted reference range : <=4.0. The reference r yadira was not used to int erpret this result as normal/abnormal . [facility] [place]anoEdwpxjkGXSQFHENFD4398-68-55 20:00:46 Test Item Value Reference Range Interpretation Comments Segs-Bands # (test code = Segs-Bands #) 11.1 1.5-8.1 H [facility] [place]UeirhhcOHCKGULCSI7426-76-10 20:00:46 Test Item Value Reference Range Interpretation Comments Basophils (test code = 0.1 See_Comment N [Aut omated message] The Basophils) system which ge nerated this result tra nsmitted reference range : <=1.0. The reference r yadira was not used to int erpret this result as normal/abnormal . [facility] [place]anoGjvqwfjDLNZYMZBFS0048-44-86 20:00:46 Test Item Value Reference Range Interpretation Comments Lymphocytes # (test code = Lymphocytes 2.0 1.0-5.5 N #) [facility] [place]anoTcthcusCZBRQIWDVE7070-55-01 20:00:46 Test Item Value Reference Range Interpretation Comments Eosinophils # (test code 1.2 See_Comment H [A utomated message] The = Eosinophils #) system whic h generated this result tra nsmitted reference range : <=0.5. The reference r yadira was not used to int erpret this result as normal/abnormal . [facility] [place]anoWcgdpvyAPCWDGKIDX8177-13-55 20:00:46 Test Item Value Reference Range Interpretation Comments Monocytes # (test code 1.0 See_Comment H [Aut omated message] The = Monocytes #) system which generated this result tra nsmitted reference range : <=0.8. The reference r yadira was not used to int erpret this result as normal/abnormal . [facility] [place]anoZyzcuvvKVFFTNAOYP3197-08-47 19:53:37 Test Item Value Reference Range Interpretation Comments aPTT (test code = aPTT) 30.0 s 22.9-35.8 N [facility] [place]XtfsgzfZACJCAOAAG9028-31-75 19:53:37 Test Item Value Reference Range Interpretation Comments PROTIME (test code = PROTIME) 13.3 s 12.0-14.7 N [facility] [place]anoZyppalvEQCUKVWJQW0723-24-86 19:53:37 Test Item Value Reference Range Interpretation Comments INR (test code = INR) 1.02 0.85-1.17 N [facility] [place]PxtcaktZSFVUCFZHJ9319-44-42 19:53:37 Test Item Value Reference Range Interpretation Comments aPTT (test code = aPTT) 30.0 s 22.9-35.8 N [facility] [place]anoHhqduvpEOBKKALNXW6499-21-96 19:53:37 Test Item Value Reference Range Interpretation Comments PROTIME (test code = PROTIME) 13.3 s 12.0-14.7 N [facility] [place]PylpbjfZVIVSCAGRU9796-17-16 19:53:37 Test Item Value Reference Range Interpretation Comments INR (test code = INR) 1.02 0.85-1.17 N [facility] [place]anoBjqbhjtKEXOMLLZPD2428-69-89 19:53:37 Test Item Value Reference Range Interpretation Comments aPTT (test code = aPTT) 30.0 s 22.9-35.8 N [facility] [place]XohhdsyJIYSFUGANE1715-57-28 19:53:37 Test Item Value Reference Range Interpretation Comments PROTIME (test code = PROTIME) 13.3 s 12.0-14.7 N [facility] [place]EhshiwxYLCBUEOBPS5700-89-76 19:53:37 Test Item Value Reference Range Interpretation Comments INR (test code = INR) 1.02 0.85-1.17 N [facility] [place]anoUxrmtjdWGFGWCJJTG8448-19-96 19:53:37 Test Item Value Reference Range Interpretation Comments aPTT (test code = aPTT) 30.0 s 22.9-35.8 N [facility] [place]NuorbxlRMDIHKGOES3535-81-19 19:53:37 Test Item Value Reference Range Interpretation Comments PROTIME (test code = PROTIME) 13.3 s 12.0-14.7 N [facility] [place]anoUjdbxsnONQWXFRPNQ8298-07-12 19:53:37 Test Item Value Reference Range Interpretation Comments INR (test code = INR) 1.02 0.85-1.17 N [facility] [place]anoKzoxrsuPDGNFVLAYD5726-81-97 19:53:37 Test Item Value Reference Range Interpretation Comments aPTT (test code = aPTT) 30.0 s 22.9-35.8 N [place] [address]-01-24 19:53:37 Test Item Value Reference Range Interpretation Comments PROTIME (test code = PROTIME) 13.3 s 12.0-14.7 [facility]2014-01-24 19:53:37 Test Item Value Reference Range Interpretation Comments INR (test code = INR) 1.02 0.85-1.17 N [facility] [place]NcpzoegVXWEYTOUIG4476-54-83 19:53:37 Test Item Value Reference Range Interpretation Comments aPTT (test code = aPTT) 30.0 s 22.9-35.8 [facility]2014-01-24 19:53:37 Test Item Value Reference Range Interpretation Comments PROTIME (test code = PROTIME) 13.3 s 12.0-14.7 [facility]2014-01-24 19:53:37 Test Item Value Reference Range Interpretation Comments INR (test code = INR) 1.02 0.85-1.17 N [facility]woodJxhrdavHINQFJIFN8831-40-66 18:44:00 Test Item Value Reference Range Interpretation Comments Glucose Lvl (test code = Glucose Lvl) 81 70-99 N [facility]woodXyzpukcRUIJTIDBM9966-35-08 18:44:00 Test Item Value Reference Range Interpretation Comments Chloride Lvl (test code = Chloride Lvl) 104 95-109 N [facility]woodKbffhwtWOUTWCFUO3713-81-81 18:44:00 Test Item Value Reference Range Interpretation Comments Potassium Lvl (test code = Potassium 4.3 3.5-5.1 N Lvl) [facility]woodXurtdfdTHAAJLSLQ0596-77-56 18:44:00 Test Item Value Reference Range Interpretation Comments Sodium Lvl (test code = Sodium Lvl) 140 135-145 N [facility] [place]woodPefqpflLCBEVNNCM6919-66-19 18:44:00 Test Item Value Reference Range Interpretation Comments Creatinine Lvl (test code = Creatinine 0.4 0.5-1.4 L Lvl) [facility] [place]woodYcjofvsHQWTTNIKS8769-66-13 18:44:00 Test Item Value Reference Range Interpretation Comments BUN (test code = BUN) 7 7-22 N [facility] [place]woodPsazxubOYLZKRNBR1833-84-27 18:44:00 Test Item Value Reference Range Interpretation Comments eGFR (test code = eGFR) 166 [facility]woodYkzqusuGBGYODRSH2607-68-84 18:44:00 Test Item Value Reference Range Interpretation Comments AGAP (test code = AGAP) 11.3 10.0-20.0 N [facility] [place]woodYumyhhbKFMQCTBKO7588-59-01 18:44:00 Test Item Value Reference Range Interpretation Comments Calcium Lvl (test code = Calcium Lvl) 8.8 8.5-10.5 N [facility] KingwoodUicceifXLNCMCKMZ2149-69-61 18:44:00 Test Item Value Reference Range Interpretation Comments CO2 (test code = CO2) 29 24-32 N [facility] [place]woodYbeisofMMVXTEEAZ9238-06-49 18:44:00 Test Item Value Reference Range Interpretation Comments Glucose Lvl (test code = Glucose Lvl) 81 70-99 N [facility] [place]woodVdwalcuUJLDZJSMH2181-09-64 18:44:00 Test Item Value Reference Range Interpretation Comments Chloride Lvl (test code = Chloride Lvl) 104 95-109 N [facility] [place]woodXehlgqrIBCZYAUXB5937-46-69 18:44:00 Test Item Value Reference Range Interpretation Comments Potassium Lvl (test code = Potassium 4.3 3.5-5.1 N Lvl) [facility] [place]woodHrdfoxxULQPHRXUX4511-10-87 18:44:00 Test Item Value Reference Range Interpretation Comments Sodium Lvl (test code = Sodium Lvl) 140 135-145 N [facility] [place]woodYgtjbdsAHJEASQGF6320-71-68 18:44:00 Test Item Value Reference Range Interpretation Comments Creatinine Lvl (test code = Creatinine 0.4 0.5-1.4 L Lvl) [facility]woodUvvemeoFJETMJQUY3549-97-98 18:44:00 Test Item Value Reference Range Interpretation Comments BUN (test code = BUN) 7 7-22 N [facility] KingwoodEbyaklaIXDDKMKKX0574-09-94 18:44:00 Test Item Value Reference Range Interpretation Comments eGFR (test code = eGFR) 166 [facility] [place]woodEfybhxgVLRUGZAIP9296-58-90 18:44:00 Test Item Value Reference Range Interpretation Comments AGAP (test code = AGAP) 11.3 10.0-20.0 N [facility] [place]woodXwtfcohNSFBKDZFV7256-11-07 18:44:00 Test Item Value Reference Range Interpretation Comments Calcium Lvl (test code = Calcium Lvl) 8.8 8.5-10.5 N [facility] [place]woodOyuxcxhXGDNODRRY0647-67-73 18:44:00 Test Item Value Reference Range Interpretation Comments CO2 (test code = CO2) 29 24-32 N [facility] KingwoodRbgbifjQZOLNSVFB3001-05-50 18:44:00 Test Item Value Reference Range Interpretation Comments Glucose Lvl (test code = Glucose Lvl) 81 70-99 N [facility] KingwoodRghkkfxUAXFZOFYD2284-64-13 18:44:00 Test Item Value Reference Range Interpretation Comments Chloride Lvl (test code = Chloride Lvl) 104 95-109 N [facility] KingwoodSsizynsRVGXAXFZU7426-88-63 18:44:00 Test Item Value Reference Range Interpretation Comments Potassium Lvl (test code = Potassium 4.3 3.5-5.1 N Lvl) [facility]woodSbmcjadQDUIWNSFT3086-40-90 18:44:00 Test Item Value Reference Range Interpretation Comments Sodium Lvl (test code = Sodium Lvl) 140 135-145 N [facility]woodQnrxbbsENXHTTYIW3875-55-01 18:44:00 Test Item Value Reference Range Interpretation Comments Creatinine Lvl (test code = Creatinine 0.4 0.5-1.4 L Lvl) [facility] [place]woodTxqcoamRHKGMWBAM6466-17-67 18:44:00 Test Item Value Reference Range Interpretation Comments BUN (test code = BUN) 7 7-22 N [facility] KingwoodRbikgtzXMOUWZPTL4141-97-43 18:44:00 Test Item Value Reference Range Interpretation Comments eGFR (test code = eGFR) 166 [facility] KingwoodSrlcjvuYCORUOZDV1486-13-65 18:44:00 Test Item Value Reference Range Interpretation Comments AGAP (test code = AGAP) 11.3 10.0-20.0 N [facility] KingwoodMzmflbuXCZQVADBZ4095-75-67 18:44:00 Test Item Value Reference Range Interpretation Comments Calcium Lvl (test code = Calcium Lvl) 8.8 8.5-10.5 N [facility] KingwoodHullzjcTMLRRBIHI4686-35-72 18:44:00 Test Item Value Reference Range Interpretation Comments CO2 (test code = CO2) 29 24-32 N [facility] [place]woodUduwwmiCYCYPFOXU6421-60-52 18:44:00 Test Item Value Reference Range Interpretation Comments Glucose Lvl (test code = Glucose Lvl) 81 70-99 N [facility] KingwoodKgutioeCPEGOPHES5598-19-95 18:44:00 Test Item Value Reference Range Interpretation Comments Chloride Lvl (test code = Chloride Lvl) 104 95-109 N [facility] [place]woodXdyamqfEKPVXJCPS2365-62-92 18:44:00 Test Item Value Reference Range Interpretation Comments Potassium Lvl (test code = Potassium 4.3 3.5-5.1 N Lvl) [facility] [place]woodKyipyzlUTHHQSNYA1373-77-62 18:44:00 Test Item Value Reference Range Interpretation Comments Sodium Lvl (test code = Sodium Lvl) 140 135-145 N [facility] KingwoodTuznbguXWAVRZWYY9776-73-31 18:44:00 Test Item Value Reference Range Interpretation Comments Creatinine Lvl (test code = Creatinine 0.4 0.5-1.4 L Lvl) [facility] [place]woodWyfcqceQLZEHCSGX7302-68-91 18:44:00 Test Item Value Reference Range Interpretation Comments BUN (test code = BUN) 7 7-22 N [facility] KingwoodFvjdzxaKVOTLJWSG7355-58-70 18:44:00 Test Item Value Reference Range Interpretation Comments eGFR (test code = eGFR) 166 [facility] KingwoodFtmkfduPMCNRDEZV2022-20-07 18:44:00 Test Item Value Reference Range Interpretation Comments AGAP (test code = AGAP) 11.3 10.0-20.0 N [facility] KingwoodZlcujcmWXYAKGGZD3203-47-01 18:44:00 Test Item Value Reference Range Interpretation Comments Calcium Lvl (test code = Calcium Lvl) 8.8 8.5-10.5 N [facility] [place]woodPtrjirhEYKLFSXHH9022-14-11 18:44:00 Test Item Value Reference Range Interpretation Comments CO2 (test code = CO2) 29 24-32 N [facility] [place]woodPtxixnlCUTICKOTC0732-25-54 18:44:00 Test Item Value Reference Range Interpretation Comments Glucose Lvl (test code = Glucose Lvl) 81 70-99 N [facility] KingwoodRnxsnxoULNFJCMHT4517-92-08 18:44:00 Test Item Value Reference Range Interpretation Comments Chloride Lvl (test code = Chloride Lvl) 104 95-109 N [facility] KingwoodBvqqcctXDFKSTHSQ9466-73-67 18:44:00 Test Item Value Reference Range Interpretation Comments Potassium Lvl (test code = Potassium 4.3 3.5-5.1 N Lvl) [facility] [place]woodJancfevOYQLJOJMC3951-59-34 18:44:00 Test Item Value Reference Range Interpretation Comments Sodium Lvl (test code = Sodium Lvl) 140 135-145 N [facility] KingwoodKesynftYLTQQTWCF2635-84-46 18:44:00 Test Item Value Reference Range Interpretation Comments Creatinine Lvl (test code = Creatinine 0.4 0.5-1.4 L Lvl) [facility] [place]woodWskneztGQPIKGMZK1407-03-52 18:44:00 Test Item Value Reference Range Interpretation Comments BUN (test code = BUN) 7 7-22 N [facility] KingwoodKfjzsokAZEYKIOMT6019-35-33 18:44:00 Test Item Value Reference Range Interpretation Comments eGFR (test code = eGFR) 166 [facility] KingwoodQzvpsgyIKAYPKIZE1866-04-37 18:44:00 Test Item Value Reference Range Interpretation Comments AGAP (test code = AGAP) 11.3 10.0-20.0 N [facility] KingwoodVyidairZEVCJWLIY3434-23-90 18:44:00 Test Item Value Reference Range Interpretation Comments Calcium Lvl (test code = Calcium Lvl) 8.8 8.5-10.5 N [facility] KingwoodGzcapjeVAJNLYEPL5809-84-94 18:44:00 Test Item Value Reference Range Interpretation Comments CO2 (test code = CO2) 29 24-32 N [facility] [place]woodYocojqgFVBPHATBQ0769-11-74 18:44:00 Test Item Value Reference Range Interpretation Comments Glucose Lvl (test code = Glucose Lvl) 81 70-99 N [facility] KingwoodVcvcjygBYGTFRKVD5795-07-52 18:44:00 Test Item Value Reference Range Interpretation Comments Chloride Lvl (test code = Chloride Lvl) 104 95-109 N [facility] KingwoodHgszphlZWMKFKZAG1544-47-28 18:44:00 Test Item Value Reference Range Interpretation Comments Potassium Lvl (test code = Potassium 4.3 3.5-5.1 N Lvl) [facility]woodAejvemzKVTSEYOPR4092-33-52 18:44:00 Test Item Value Reference Range Interpretation Comments Sodium Lvl (test code = Sodium Lvl) 140 135-145 N [facility] KingwoodAvoccscKLCYTBSRY5509-56-28 18:44:00 Test Item Value Reference Range Interpretation Comments Creatinine Lvl (test code = Creatinine 0.4 0.5-1.4 L Lvl) [facility] [place]woodQjhcygpZWFUTVLXA4812-93-20 18:44:00 Test Item Value Reference Range Interpretation Comments BUN (test code = BUN) 7 7-22 N [facility] [place]woodUkqqxymMBLYMGPIZ4400-42-66 18:44:00 Test Item Value Reference Range Interpretation Comments eGFR (test code = eGFR) 166 [facility] KingwoodJmgwrkbREDSEMQTB5847-72-57 18:44:00 Test Item Value Reference Range Interpretation Comments AGAP (test code = AGAP) 11.3 10.0-20.0 N [facility] KingwoodVxepifsHVTFQEUOH7682-20-95 18:44:00 Test Item Value Reference Range Interpretation Comments Calcium Lvl (test code = Calcium Lvl) 8.8 8.5-10.5 N [facility] KingwoodTdqwusyPIQZZUCFQ5495-29-56 18:44:00 Test Item Value Reference Range Interpretation Comments CO2 (test code = CO2) 29 24-32 N [facility]anoKvtpeswBYYHTXGTJS9014-56-56 17:20:00 Test Item Value Reference Range Interpretation Comments Epi 5.5 (test code = Epi 5.5) 61 [facility] [place]anoCslopezORLTVOKNZU6018-80-29 17:20:00 Test Item Value Reference Range Interpretation Comments Ris 1.5 (test code = Ris 1.5) 86 [facility] [place]anoGpgzjxyHWJFNEDGPJ2462-16-17 17:20:00 Test Item Value Reference Range Interpretation Comments AA 2.5 (test code = AA 2.5) 8 [facility] [place]anoMgakuwsGFAUCHJPTZ8616-55-03 17:20:00 Test Item Value Reference Range Interpretation Comments AA 5.0 (test code = AA 5.0) 46 [facility] [place]anoOaxywlrCUBIIVZTHQ2910-62-97 17:20:00 Test Item Value Reference Range Interpretation Comments Epi 11.0 (test code = Epi 11.0) 66 [facility] [place]anoKbmzwdzYYNXJASUEU3044-00-50 17:20:00 Test Item Value Reference Range Interpretation Comments ADP 5.0 uM/ml (test code = ADP 5.0 65 uM/ml) [facility]anoNwbzrhkWFIVGFLSQK8187-45-94 17:20:00 Test Item Value Reference Range Interpretation Comments Ris .75 (test code = Ris .75) 13 [facility] [place]anoAppeyjyQIBXVSELAD4760-44-06 17:20:00 Test Item Value Reference Range Interpretation [...] versus Aspirin). Clinical correlation is required. CPT: 77142 x5 [facility] [place]anoKhybhnyXWVNVTXZEI9870-03-01 17:20:00 Test Item Value Reference Range Interpretation Comments ADP 2.5 uM/ml (test code = ADP 2.5 36 uM/ml) [facility] [place]anoZljdwxbKQMNWFZNRB2124-20-75 17:20:00 Test Item Value Reference Range Interpretation Comments Collagen 5.0 (test code = Collagen 5.0) 76 [facility] [place]anoKoeqnceJBWMFVIJAL7029-22-27 17:20:00 Test Item Value Reference Range Interpretation Comments Epi 5.5 (test code = Epi 5.5) 61 [facility] [place]anoCsoyizwSJCVFDUEIO7373-61-37 17:20:00 Test Item Value Reference Range Interpretation Comments Ris 1.5 (test code = Ris 1.5) 86 [facility] [place]anoVxqmdqeOATWRTAJXH7320-67-74 17:20:00 Test Item Value Reference Range Interpretation Comments AA 2.5 (test code = AA 2.5) 8 [facility] [place]anoZdfsaoxDFKUQGUYCU8847-22-76 17:20:00 Test Item Value Reference Range Interpretation Comments AA 5.0 (test code = AA 5.0) 46 [facility] [place]anoJtbrkzmYFIYDSHLOT8132-50-41 17:20:00 Test Item Value Reference Range Interpretation Comments Epi 11.0 (test code = Epi 11.0) 66 [facility] [place]anoAttaxkoOAQGSWAPEM7506-10-24 17:20:00 Test Item Value Reference Range Interpretation Comments ADP 5.0 uM/ml (test code = ADP 5.0 65 uM/ml) [facility]anoJegucxgSIAZFTQNTR7696-16-55 17:20:00 Test Item Value Reference Range Interpretation Comments Ris .75 (test code = Ris .75) 13 [place] [id number] 17:20:00 Test Item Value Reference Range Interpretation [...] versus Aspirin). Clinical correlation is required. CPT: 82182 x5 [facility]anoNbfqsogBKGXTDCOVB6190-92-19 17:20:00 Test Item Value Reference Range Interpretation Comments ADP 2.5 uM/ml (test code = ADP 2.5 36 uM/ml) [facility]anoPyhqgmeCKPURCEPTM1597-32-49 17:20:00 Test Item Value Reference Range Interpretation Comments Collagen 5.0 (test code = Collagen 5.0) 76 [facility]anoMncztvvSTQZFQVSDO7808-56-16 17:20:00 Test Item Value Reference Range Interpretation Comments Epi 5.5 (test code = Epi 5.5) 61 [facility]anoMcpmokaFBHNDBTFAZ1474-15-85 17:20:00 Test Item Value Reference Range Interpretation Comments Ris 1.5 (test code = Ris 1.5) 86 [facility]anoUojwtdfCOWKVJSFSN2828-43-85 17:20:00 Test Item Value Reference Range Interpretation Comments AA 2.5 (test code = AA 2.5) 8 [facility]anoSnzwoyuGZZIFFSKZS6156-54-95 17:20:00 Test Item Value Reference Range Interpretation Comments AA 5.0 (test code = AA 5.0) 46 [facility]anoWdvpkdgAMHEYQKQWY3297-75-59 17:20:00 Test Item Value Reference Range Interpretation Comments Epi 11.0 (test code = Epi 11.0) 66 [place] 490144-01-24 17:20:00 Test Item Value Reference Range Interpretation Comments ADP 5.0 uM/ml (test code = ADP 5.0 65 uM/ml) [facility]anoNdscvkwQPMMHRNAHN7278-90-17 17:20:00 Test Item Value Reference Range Interpretation Comments Ris .75 (test code = Ris .75) 13 [facility]anoKaqjnmvOTRIDARSKE5614-48-39 17:20:00 Test Item Value Reference Range Interpretation [...] versus Aspirin). Clinical correlation is required. CPT: 81527 x5 [facility]anoJkrwzkyPIDZSBHGHA2958-55-31 17:20:00 Test Item Value Reference Range Interpretation Comments ADP 2.5 uM/ml (test code = ADP 2.5 36 uM/ml) [facility]anoVojagikTIQYFTFFDY7888-40-95 17:20:00 Test Item Value Reference Range Interpretation Comments Collagen 5.0 (test code = Collagen 5.0) 76 [place] 490144-01-24 17:20:00 Test Item Value Reference Range Interpretation Comments Epi 5.5 (test code = Epi 5.5) 61 [facility]anoFzfmltjCOQEZQCCEQ6252-52-90 17:20:00 Test Item Value Reference Range Interpretation Comments Ris 1.5 (test code = Ris 1.5) 86 [facility]anoXgorosmTCKECGWAYQ7031-58-87 17:20:00 Test Item Value Reference Range Interpretation Comments AA 2.5 (test code = AA 2.5) 8 [facility]anoLntmpcdZLSARCUOIJ9281-44-44 17:20:00 Test Item Value Reference Range Interpretation Comments AA 5.0 (test code = AA 5.0) 46 [facility]anoIixwpudAPDTDQTMLK4497-76-85 17:20:00 Test Item Value Reference Range Interpretation Comments Epi 11.0 (test code = Epi 11.0) 66 [facility]anoFvtmwdjFLMTPQLBQA8264-26-32 17:20:00 Test Item Value Reference Range Interpretation Comments ADP 5.0 uM/ml (test code = ADP 5.0 65 uM/ml) [facility]anoWisqvwbTBODFWSEDH7678-14-82 17:20:00 Test Item Value Reference Range Interpretation Comments Ris .75 (test code = Ris .75) 13 [facility]anoJgdimxuPCPEUJWJWS7578-21-18 17:20:00 Test Item Value Reference Range Interpretation [...] versus Aspirin). Clinical correlation is required. CPT: 13392 x5 [place] 490144-01-24 17:20:00 Test Item Value Reference Range Interpretation Comments ADP 2.5 uM/ml (test code = ADP 2.5 36 uM/ml) [place] 490144-01-24 17:20:00 Test Item Value Reference Range Interpretation Comments Collagen 5.0 (test code = Collagen 5.0) 76 [place] [address]-01-24 17:20:00 Test Item Value Reference Range Interpretation Comments Epi 5.5 (test code = Epi 5.5) 61 [place] 490144-01-24 17:20:00 Test Item Value Reference Range Interpretation Comments Ris 1.5 (test code = Ris 1.5) 86 [facility]anoRkzgkbhURRYANXTVU0310-75-66 17:20:00 Test Item Value Reference Range Interpretation Comments AA 2.5 (test code = AA 2.5) 8 [facility]anoZhaijbwQZCFALELLJ7956-90-94 17:20:00 Test Item Value Reference Range Interpretation Comments AA 5.0 (test code = AA 5.0) 46 [place] [address]-01-24 17:20:00 Test Item Value Reference Range Interpretation Comments Epi 11.0 (test code = Epi 11.0) 66 [facility]anoGwtjojrYTGRJUPEJU1496-70-84 17:20:00 Test Item Value Reference Range Interpretation Comments ADP 5.0 uM/ml (test code = ADP 5.0 65 uM/ml) [place] 490144-01-24 17:20:00 Test Item Value Reference Range Interpretation Comments Ris .75 (test code = Ris .75) 13 [place] 490144-01-24 17:20:00 Test Item Value Reference Range Interpretation [...] versus Aspirin). Clinical correlation is required. CPT: 99879 x5 [place] 490144-01-24 17:20:00 Test Item Value Reference Range Interpretation Comments ADP 2.5 uM/ml (test code = ADP 2.5 36 uM/ml) [facility]anoAqqldpgWCEJAQJLOJ4034-51-34 17:20:00 Test Item Value Reference Range Interpretation Comments Collagen 5.0 (test code = Collagen 5.0) 76 [facility]anoYwkzahsHKZSZCNCUF1307-11-94 17:20:00 Test Item Value Reference Range Interpretation Comments Epi 5.5 (test code = Epi 5.5) 61 [facility]anoHyjywxqCSCUOFEDEK7190-32-20 17:20:00 Test Item Value Reference Range Interpretation Comments Ris 1.5 (test code = Ris 1.5) 86 [facility]anoKmeuzpcBVAESYJYCP5356-42-74 17:20:00 Test Item Value Reference Range Interpretation Comments AA 2.5 (test code = AA 2.5) 8 [facility]anoRkdhwelJKSECPZGEN8882-26-18 17:20:00 Test Item Value Reference Range Interpretation Comments AA 5.0 (test code = AA 5.0) 46 [place] [address]-01-24 17:20:00 Test Item Value Reference Range Interpretation Comments Epi 11.0 (test code = Epi 11.0) 66 [facility]anoAiiaaciPGWDOHAZQV0077-88-39 17:20:00 Test Item Value Reference Range Interpretation Comments ADP 5.0 uM/ml (test code = ADP 5.0 65 uM/ml) [facility]anoKihjmwbLVYFHXGHJH3964-20-38 17:20:00 Test Item Value Reference Range Interpretation Comments Ris .75 (test code = Ris .75) 13 [place] [address]-01-24 17:20:00 Test Item Value Reference Range Interpretation [...] versus Aspirin). Clinical correlation is required. CPT: 57649 x5 [facility]anoGuvmljdTHGAKYNDXL7850-95-24 17:20:00 Test Item Value Reference Range Interpretation Comments ADP 2.5 uM/ml (test code = ADP 2.5 36 uM/ml) [facility]anoNlhzktkBAXSREQBBR7170-94-23 17:20:00 Test Item Value Reference Range Interpretation Comments Collagen 5.0 (test code = Collagen 5.0) 76 [facility] GBTQEXJ2342-85-92 14:00:00 Test Item Value Reference Range Interpretation Comments Antibody Scrn (test Negative (03/12/2013 N code = Antibody Scrn) 08:00:00) [facility] [id number] 14:00:00 Test Item Value Reference Range Interpretation Comments ABO/Rh (test code = ABO/Rh) O POS [facility] [id number] 14:00:00 Test Item Value Reference Range Interpretation Comments Antibody Scrn (test Negative (03/12/2013 N code = Antibody Scrn) 08:00:00) [facility] [id number] 14:00:00 Test Item Value Reference Range Interpretation Comments ABO/Rh (test code = ABO/Rh) O POS [facility] VOGEKEL8023-00-01 14:00:00 Test Item Value Reference Range Interpretation Comments Antibody Scrn (test Negative (03/12/2013 N code = Antibody Scrn) 08:00:00) [facility] [id number] 14:00:00 Test Item Value Reference Range Interpretation Comments ABO/Rh (test code = ABO/Rh) O POS [facility] [id number] 14:00:00 Test Item Value Reference Range Interpretation Comments Antibody Scrn (test Negative (03/12/2013 N code = Antibody Scrn) 08:00:00) [facility] [id number] 14:00:00 Test Item Value Reference Range Interpretation Comments ABO/Rh (test code = ABO/Rh) O POS [facility] [id number] 14:00:00 Test Item Value Reference Range Interpretation Comments Antibody Scrn (test Negative (03/12/2013 N code = Antibody Scrn) 08:00:00) [facility] [id number] 14:00:00 Test Item Value Reference Range Interpretation Comments ABO/Rh (test code = ABO/Rh) O POS [facility] [id number] 14:00:00 Test Item Value Reference Range Interpretation Comments Antibody Scrn (test Negative (03/12/2013 N code = Antibody Scrn) 08:00:00) [employer] [id number] 14:00:00 Test Item Value Reference Range Interpretation Comments ABO/Rh (test code = ABO/Rh) O POS [facility] [employer] BANK MIYJKUO4724-80-03 17:50:00 Test Item Value Reference Range Interpretation Comments Antibody Scrn (test Negative (03/10/2013 N code = Antibody Scrn) 11:50:00) [employer] B[facility] [id number] 17:50:00 Test Item Value Reference Range Interpretation Comments ABO/Rh (test code = ABO/Rh) O POS [employer] BANK [id number] 17:50:00 Test Item Value Reference Range Interpretation Comments Antibody Scrn (test Negative (03/10/2013 N code = Antibody Scrn) 11:50:00) [employer] [id number] 17:50:00 Test Item Value Reference Range Interpretation Comments ABO/Rh (test code = ABO/Rh) O POS [employer] [id number] 17:50:00 Test Item Value Reference Range Interpretation Comments Antibody Scrn (test Negative (03/10/2013 N code = Antibody Scrn) 11:50:00) [facility] [id number] 17:50:00 Test Item Value Reference Range Interpretation Comments ABO/Rh (test code = ABO/Rh) O POS [facility] [id number] 17:50:00 Test Item Value Reference Range Interpretation Comments Antibody Scrn (test Negative (03/10/2013 N code = Antibody Scrn) 11:50:00) [employer] B[facility] [id number] 17:50:00 Test Item Value Reference Range Interpretation Comments ABO/Rh (test code = ABO/Rh) O POS [employer] B[facility] [id number] 17:50:00 Test Item Value Reference Range Interpretation Comments Antibody Scrn (test Negative (03/10/2013 N code = Antibody Scrn) 11:50:00) [employer] BANK [id number] 17:50:00 Test Item Value Reference Range Interpretation Comments ABO/Rh (test code = ABO/Rh) O POS [employer] BANK [id number] 17:50:00 Test Item Value Reference Range Interpretation Comments Antibody Scrn (test Negative (03/10/2013 N code = Antibody Scrn) 11:50:00) [facility] [id number] 17:50:00 Test Item Value Reference Range Interpretation Comments ABO/Rh (test code = ABO/Rh) O POS [facility]QfgvwnfQZMHNBHVA4223-80-64 17:40:00 Test Item Value Reference Range Interpretation Comments A/G Ratio (test code = A/G Ratio) 1.0 0.7-1.6 N [facility]woodRgfzvkpITKDSVMBU9266-21-59 17:40:00 Test Item Value Reference Range Interpretation Comments B/C Ratio (test code = B/C Ratio) 12 6-25 N [facility]woodAqvmnueYQMKCEBDL0625-42-78 17:40:00 Test Item Value Reference Range Interpretation Comments AGAP (test code = AGAP) 12.6 10.0-20.0 N [facility] KingwoodSmiehukRBIMAEJBL4814-21-14 17:40:00 Test Item Value Reference Range Interpretation Comments Globulin (test code = Globulin) 4.0 2.0-4.0 N [facility]woodSiljlkzXZWBOQUZY3050-49-37 17:40:00 Test Item Value Reference Range Interpretation Comments eGFR (test code = eGFR) 105 [facility] KingwoodYbbqzvlPVRPJFFNW9421-31-26 17:40:00 Test Item Value Reference Range Interpretation Comments Sodium Lvl (test code = Sodium Lvl) 140 135-145 N [facility] KingwoodIcwkwhxYSXPLXXJZ9283-08-93 17:40:00 Test Item Value Reference Range Interpretation Comments ASPARTATE TRANSAMINASE 17 See_Comment N [Aut omated message] (test code = ASPARTATE The s ystem which TRANSAMINASE) generated this result transmitted ref erence range: <=37. Th e reference range was not used to interpr et this result as normal/abnormal . [facility]woodDvpktwoWVPWIHTLW4238-48-06 17:40:00 Test Item Value Reference Range Interpretation Comments Total Protein (test code = Total 7.8 6.4-8.4 N Protein) [facility]woodZytwhrgSMZUFVXCX8140-68-71 17:40:00 Test Item Value Reference Range Interpretation Comments Bili Total (test code = Bili Total) 0.6 0.2-1.3 N [facility]woodTjrccgvKPUFCFLKM1830-07-00 17:40:00 Test Item Value Reference Range Interpretation Comments Calcium Lvl (test code = Calcium Lvl) 9.5 8.5-10.5 N [facility] KingwoodZhbvttvTNEYHEZZC4616-17-31 17:40:00 Test Item Value Reference Range Interpretation Comments CO2 (test code = CO2) 27 24-32 N [facility]woodWlzwqsaWMAVVCMTY5167-70-88 17:40:00 Test Item Value Reference Range Interpretation Comments Chloride Lvl (test code = Chloride Lvl) 104 95-109 N [facility] KingwoodBlnhjdvIBRHDEOLV2727-51-83 17:40:00 Test Item Value Reference Range Interpretation Comments Potassium Lvl (test code = Potassium 3.6 3.5-5.1 N Lvl) [facility]woodSxrvufrETOBMYYXL2440-50-23 17:40:00 Test Item Value Reference Range Interpretation Comments BUN (test code = BUN) 12 7-22 N [facility]woodTwidcvyBSXKNXZAM1994-06-70 17:40:00 Test Item Value Reference Range Interpretation Comments Glucose Lvl (test code = Glucose Lvl) 76 70-99 N [facility]woodAcqsncdFJFFNDIBV6652-31-81 17:40:00 Test Item Value Reference Range Interpretation Comments Alk Phos (test code = Alk Phos) 106 39-136 N [facility] KingwoodTkqsvfzBRHVQLVEC3018-29-71 17:40:00 Test Item Value Reference Range Interpretation Comments Albumin Lvl (test code = Albumin Lvl) 3.8 3.5-5.0 N [facility] KingwoodGtogyhfQXRZZEHVK1378-38-80 17:40:00 Test Item Value Reference Range Interpretation Comments ALANINE AMINOTRANSFERASE 33 See_Comment N [A utomated message] (test code = ALANINE The sys tem which AMINOTRANSFERASE) generated this result transmitted ref erence range: <=65. Th e reference range was not used to int erpret this result as normal/abnormal . [facility]woodHgdkyyvIMQIQFCEN1915-88-53 17:40:00 Test Item Value Reference Range Interpretation Comments Creatinine Lvl (test code = Creatinine 1.0 0.5-1.4 N Lvl) [facility]anoVahkvmaRTEVIRCPJH7910-73-55 17:40:00 Test Item Value Reference Range Interpretation Comments Monocytes (test code = Monocytes) 10.8 2.0-12.0 N [facility]anoByxpckzDVKMBIRHML1458-01-17 17:40:00 Test Item Value Reference Range Interpretation Comments Eosinophils (test code = 14.6 See_Comment H [A utomated message] The Eosinophils) system which ge nerated this result tra nsmitted reference range : <=4.0. The reference r yadira was not used to int erpret this result as normal/abnormal . [facility]anoUjbxakeKJHARJBXUI0008-11-57 17:40:00 Test Item Value Reference Range Interpretation Comments Lymphocytes # (test code = Lymphocytes 2.9 1.0-5.5 N #) [facility]anoMcuakkmXMGPQVTTIK6394-61-06 17:40:00 Test Item Value Reference Range Interpretation Comments Eosinophils # (test code 1.6 See_Comment H [A utomated message] The = Eosinophils #) system ic h generated this result tra nsmitted reference range : <=0.5. The reference r yadira was not used to int erpret this result as normal/abnormal . [facility]anoNbmczjuIJYLJRHXMZ2072-02-63 17:40:00 Test Item Value Reference Range Interpretation Comments Lymphocytes (test code = Lymphocytes) 26.8 20.0-40.0 N [facility]anoGhofnckVPRRHAJSJH3628-00-14 17:40:00 Test Item Value Reference Range Interpretation Comments Basophils (test code = 0.4 See_Comment N [Aut omated message] The Basophils) system which ge nerated this result tra nsmitted reference range : <=1.0. The reference r yadira was not used to int erpret this result as normal/abnormal . [facility]anoGprxnzgMBICAKJJDO4981-91-90 17:40:00 Test Item Value Reference Range Interpretation Comments Segs-Bands # (test code = Segs-Bands #) 5.1 1.5-8.1 N [facility]anoDqpqiizAIMANKXXNS7265-53-06 17:40:00 Test Item Value Reference Range Interpretation Comments Monocytes # (test code 1.2 See_Comment H [Aut omated message] The = Monocytes #) system which generated this result tra nsmitted reference range : <=0.8. The reference r yadira was not used to int erpret this result as normal/abnormal . [facility]anoGmygkfsWEIQLDFKYS2386-45-99 17:40:00 Test Item Value Reference Range Interpretation Comments Segs (test code = Segs) 47.4 45.0-75.0 N [facility]anoAlnbbryCRRYVPQDTX0485-66-33 17:40:00 Test Item Value Reference Range Interpretation Comments MPV (test code = MPV) 8.2 7.4-10.4 N [facility]anoCpfbmeySRRBNZTJZW8671-47-21 17:40:00 Test Item Value Reference Range Interpretation Comments Platelet (test code = Platelet) 281 133-450 N [facility]anoDennhulFAFXABNRAI2624-09-02 17:40:00 Test Item Value Reference Range Interpretation Comments RDW (test code = RDW) 13.1 11.5-14.5 N [facility]anoEqarvymKTXIBETADI1853-98-63 17:40:00 Test Item Value Reference Range Interpretation Comments MCHC (test code = MCHC) 34.4 32.0-36.0 N [facility]anoNxjhsfuGROBQLHZOI8762-19-92 17:40:00 Test Item Value Reference Range Interpretation Comments MCH (test code = MCH) 31.1 pg 27.0-31.0 H [facility]anoPxttpzjDJVIPHRSDP4606-16-84 17:40:00 Test Item Value Reference Range Interpretation Comments MCV (test code = MCV) 90.5 80.0-94.0 N [facility]anoQglrrxuQFNDQZFQUO1986-82-36 17:40:00 Test Item Value Reference Range Interpretation Comments Hgb (test code = Hgb) 15.9 14.0-18.0 N [facility]anoLhqzzwhRYUGOCJBTT1164-09-00 17:40:00 Test Item Value Reference Range Interpretation Comments RBC X 10x6 (test code = RBC X 10x6) 5.10 4.70-6.10 N [facility]anoNyrjvgxTPSCCLEVRE1342-64-82 17:40:00 Test Item Value Reference Range Interpretation Comments Hct (test code = Hct) 46.2 42.0-54.0 N [facility]anoXbsvyneBHCQPMRDTW1830-11-31 17:40:00 Test Item Value Reference Range Interpretation Comments WBC X 10x3 (test code = WBC X 10x3) 10.7 3.7-10.4 H [facility]anoJkmavunBYYJIPKBLB3803-02-96 17:40:00 Test Item Value Reference Range Interpretation Comments INR (test code = INR) 0.98 0.85-1.17 N [facility]anoMkcnnvxTOFWMTRECC8198-16-19 17:40:00 Test Item Value Reference Range Interpretation Comments aPTT (test code = aPTT) 30.0 s 22.9-35.8 N [facility]anoKjmewqgHYMSLZZYDS6667-95-56 17:40:00 Test Item Value Reference Range Interpretation Comments PROTIME (test code = PROTIME) 12.9 s 12.0-14.7 N [facility]woodMqqxjvjOYTDASBYU6070-20-16 17:40:00 Test Item Value Reference Range Interpretation Comments A/G Ratio (test code = A/G Ratio) 1.0 0.7-1.6 N [facility] KingwoodKvtxwinLDKEEHJYM9307-97-23 17:40:00 Test Item Value Reference Range Interpretation Comments B/C Ratio (test code = B/C Ratio) 12 6-25 N [facility] KingwoodOtookzhVOXEMKOCN0624-52-12 17:40:00 Test Item Value Reference Range Interpretation Comments AGAP (test code = AGAP) 12.6 10.0-20.0 N [facility] KingwoodHmzvovcLDKNDHKSG4994-14-24 17:40:00 Test Item Value Reference Range Interpretation Comments Globulin (test code = Globulin) 4.0 2.0-4.0 N [facility] KingwoodKjorlzpWSWPLMVDE7707-28-40 17:40:00 Test Item Value Reference Range Interpretation Comments eGFR (test code = eGFR) 105 [facility]woodQduncjjMOBZLDNYH7952-54-39 17:40:00 Test Item Value Reference Range Interpretation Comments Sodium Lvl (test code = Sodium Lvl) 140 135-145 N [facility] KingwoodDoblbzxTKPMYZVFL8541-58-03 17:40:00 Test Item Value Reference Range Interpretation Comments ASPARTATE TRANSAMINASE 17 See_Comment N [Aut omated message] (test code = ASPARTATE The s ystem which TRANSAMINASE) generated this result transmitted ref erence range: <=37. Th e reference range was not used to interpr et this result as normal/abnormal . [facility] KingwoodKvwslwaJGXCETRZE6316-32-22 17:40:00 Test Item Value Reference Range Interpretation Comments Total Protein (test code = Total 7.8 6.4-8.4 N Protein) [facility]woodUqxbypqOMIFBMVHT7046-59-07 17:40:00 Test Item Value Reference Range Interpretation Comments Bili Total (test code = Bili Total) 0.6 0.2-1.3 N [facility] KingwoodCxymjkjAOGSANTEH4659-13-58 17:40:00 Test Item Value Reference Range Interpretation Comments Calcium Lvl (test code = Calcium Lvl) 9.5 8.5-10.5 N [facility] KingwoodHlqaonaZMYDQBSXI4819-27-72 17:40:00 Test Item Value Reference Range Interpretation Comments CO2 (test code = CO2) 27 24-32 N [facility] KingwoodZyyzlthTCKZXNMZN0021-57-13 17:40:00 Test Item Value Reference Range Interpretation Comments Chloride Lvl (test code = Chloride Lvl) 104 95-109 N [facility] KingwoodFthrgvmYLPMLPOQN5356-70-42 17:40:00 Test Item Value Reference Range Interpretation Comments Potassium Lvl (test code = Potassium 3.6 3.5-5.1 N Lvl) [facility]woodWwvqqmnNCLBXGPEG5640-48-78 17:40:00 Test Item Value Reference Range Interpretation Comments BUN (test code = BUN) 12 7-22 N [facility] KingwoodVikphcdREFOIANRV3676-16-99 17:40:00 Test Item Value Reference Range Interpretation Comments Glucose Lvl (test code = Glucose Lvl) 76 70-99 N [facility] KingwoodCgglvgvLVHPZXMGA1349-19-68 17:40:00 Test Item Value Reference Range Interpretation Comments Alk Phos (test code = Alk Phos) 106 39-136 N [facility] KingwoodOcrfujzQRBZPAMIG1550-78-59 17:40:00 Test Item Value Reference Range Interpretation Comments Albumin Lvl (test code = Albumin Lvl) 3.8 3.5-5.0 N [facility] KingwoodFuswkngUNVSPRMDT8873-91-83 17:40:00 Test Item Value Reference Range Interpretation Comments ALANINE AMINOTRANSFERASE 33 See_Comment N [A utomated message] (test code = ALANINE The sys tem which AMINOTRANSFERASE) generated this result transmitted ref erence range: <=65. Th e reference range was not used to int erpret this result as normal/abnormal . [facility] KingwoodYdshgnqXKMDVVGOY6557-82-48 17:40:00 Test Item Value Reference Range Interpretation Comments Creatinine Lvl (test code = Creatinine 1.0 0.5-1.4 N Lvl) [facility]anoWoirntyJIZPHHQQCK1662-28-50 17:40:00 Test Item Value Reference Range Interpretation Comments Monocytes (test code = Monocytes) 10.8 2.0-12.0 N [facility]anoIhmkypeVEMAKWYBZA9982-45-27 17:40:00 Test Item Value Reference Range Interpretation Comments Eosinophils (test code = 14.6 See_Comment H [A utomated message] The Eosinophils) system which ge nerated this result tra nsmitted reference range : <=4.0. The reference r yadira was not used to int erpret this result as normal/abnormal . [facility]anoJsyunbwDIGRJHKPUD9899-37-13 17:40:00 Test Item Value Reference Range Interpretation Comments Lymphocytes # (test code = Lymphocytes 2.9 1.0-5.5 N #) [facility]WalozvqFULJJQMODX9151-68-31 17:40:00 Test Item Value Reference Range Interpretation Comments Eosinophils # (test code 1.6 See_Comment H [A utomated message] The = Eosinophils #) system [facility] h generated this result tra nsmitted reference range : <=0.5. The reference r yadira was not used to int erpret this result as normal/abnormal . [facility]anoLkospwoTGSCKTGGFY7968-84-92 17:40:00 Test Item Value Reference Range Interpretation Comments Lymphocytes (test code = Lymphocytes) 26.8 20.0-40.0 N [facility]anoHyrcxclQGKLAIYTYR9869-28-01 17:40:00 Test Item Value Reference Range Interpretation Comments Basophils (test code = 0.4 See_Comment N [Aut omated message] The Basophils) system which ge nerated this result tra nsmitted reference range : <=1.0. The reference r yadira was not used to int erpret this result as normal/abnormal . [facility]anoYgfcqbmKPYZZDHVFT7487-43-07 17:40:00 Test Item Value Reference Range Interpretation Comments Segs-Bands # (test code = Segs-Bands #) 5.1 1.5-8.1 N [facility]anoEsoyemfXACJNQJWHC3314-55-54 17:40:00 Test Item Value Reference Range Interpretation Comments Monocytes # (test code 1.2 See_Comment H [Aut omated message] The = Monocytes #) system which generated this result tra nsmitted reference range : <=0.8. The reference r yadira was not used to int erpret this result as normal/abnormal . [facility]anoImathazXGDDIEVZCY0071-70-33 17:40:00 Test Item Value Reference Range Interpretation Comments Segs (test code = Segs) 47.4 45.0-75.0 N [facility]anoXjkmgjaVALXRWIQGF1973-35-98 17:40:00 Test Item Value Reference Range Interpretation Comments MPV (test code = MPV) 8.2 7.4-10.4 N [facility]anoBkffcweLVMJXGKTEQ7116-36-33 17:40:00 Test Item Value Reference Range Interpretation Comments Platelet (test code = Platelet) 281 133-450 N [facility]anoPylemwoYPBGTZOSVY6632-22-04 17:40:00 Test Item Value Reference Range Interpretation Comments RDW (test code = RDW) 13.1 11.5-14.5 N [facility]anoRqokhtfDGUKCLPJCD1144-28-48 17:40:00 Test Item Value Reference Range Interpretation Comments MCHC (test code = MCHC) 34.4 32.0-36.0 N [facility]anoZteswkyZXWWWAQZMH7044-89-98 17:40:00 Test Item Value Reference Range Interpretation Comments MCH (test code = MCH) 31.1 pg 27.0-31.0 H [facility]anoPrbqzylJWGPLPAVPZ7538-93-61 17:40:00 Test Item Value Reference Range Interpretation Comments MCV (test code = MCV) 90.5 80.0-94.0 N [facility]anoMczmefeANUZAFXSED9443-98-21 17:40:00 Test Item Value Reference Range Interpretation Comments Hgb (test code = Hgb) 15.9 14.0-18.0 N [facility]anoZbfegmnIKIIAWFACJ7166-15-28 17:40:00 Test Item Value Reference Range Interpretation Comments RBC X 10x6 (test code = RBC X 10x6) 5.10 4.70-6.10 N [facility]anoHzacxycXMAWLYNJKV6825-16-21 17:40:00 Test Item Value Reference Range Interpretation Comments Hct (test code = Hct) 46.2 42.0-54.0 N [facility]anoIaqtoptHWWHGOTIEF1539-19-39 17:40:00 Test Item Value Reference Range Interpretation Comments WBC X 10x3 (test code = WBC X 10x3) 10.7 3.7-10.4 H [facility]anoVihfrnoATNFMGSAOA2424-02-77 17:40:00 Test Item Value Reference Range Interpretation Comments INR (test code = INR) 0.98 0.85-1.17 N [facility]anoWiohpmlPFZOVQEZNF8329-67-79 17:40:00 Test Item Value Reference Range Interpretation Comments aPTT (test code = aPTT) 30.0 s 22.9-35.8 N [facility]anoNhrvbhnCFLDJPHZAX6043-31-24 17:40:00 Test Item Value Reference Range Interpretation Comments PROTIME (test code = PROTIME) 12.9 s 12.0-14.7 N [facility]woodUpmfmwiQETMMCWRH0673-95-91 17:40:00 Test Item Value Reference Range Interpretation Comments A/G Ratio (test code = A/G Ratio) 1.0 0.7-1.6 N [facility]woodTmmvdkmEHMJKMVEI5339-60-49 17:40:00 Test Item Value Reference Range Interpretation Comments B/C Ratio (test code = B/C Ratio) 12 6-25 N [facility] KingwoodRcfybunRGWPSKIAN8184-38-17 17:40:00 Test Item Value Reference Range Interpretation Comments AGAP (test code = AGAP) 12.6 10.0-20.0 N [facility] KingwoodFqckwxwXHHRQGUQG0774-17-72 17:40:00 Test Item Value Reference Range Interpretation Comments Globulin (test code = Globulin) 4.0 2.0-4.0 N [facility] KingwoodEqikskqEGXYWRHVY8728-85-79 17:40:00 Test Item Value Reference Range Interpretation Comments eGFR (test code = eGFR) 105 [facility]woodYhoyfxpOKJWUKOEH1992-65-21 17:40:00 Test Item Value Reference Range Interpretation Comments Sodium Lvl (test code = Sodium Lvl) 140 135-145 N [facility] KingwoodRglcdouDRRPMMMAJ9255-67-78 17:40:00 Test Item Value Reference Range Interpretation Comments ASPARTATE TRANSAMINASE 17 See_Comment N [Aut omated message] (test code = ASPARTATE The s ystem which TRANSAMINASE) generated this result transmitted ref erence range: <=37. Th e reference range was not used to interpr et this result as normal/abnormal . [facility]woodOjjsdgxTRRERZPFJ6630-81-15 17:40:00 Test Item Value Reference Range Interpretation Comments Total Protein (test code = Total 7.8 6.4-8.4 N Protein) [facility]woodScnevnyGNIKARHBM8783-42-56 17:40:00 Test Item Value Reference Range Interpretation Comments Bili Total (test code = Bili Total) 0.6 0.2-1.3 N [facility]woodUxlvdqqIBJWKMHVO6599-02-15 17:40:00 Test Item Value Reference Range Interpretation Comments Calcium Lvl (test code = Calcium Lvl) 9.5 8.5-10.5 N [facility]woodEykidopTYASSQQXD4150-88-23 17:40:00 Test Item Value Reference Range Interpretation Comments CO2 (test code = CO2) 27 24-32 N [facility] KingwoodHzahfzbRLRLBRPEI5562-71-34 17:40:00 Test Item Value Reference Range Interpretation Comments Chloride Lvl (test code = Chloride Lvl) 104 95-109 N [facility]woodXfcguivTQYOSJKQH3389-97-02 17:40:00 Test Item Value Reference Range Interpretation Comments Potassium Lvl (test code = Potassium 3.6 3.5-5.1 N Lvl) [facility]woodDsrhhihREOGDXNXX4579-12-91 17:40:00 Test Item Value Reference Range Interpretation Comments BUN (test code = BUN) 12 7-22 N [facility]woodPbntgcbVASYLAFEI3649-55-03 17:40:00 Test Item Value Reference Range Interpretation Comments Glucose Lvl (test code = Glucose Lvl) 76 70-99 N [facility] KingwoodJazwxdqUECWEONYO2067-16-44 17:40:00 Test Item Value Reference Range Interpretation Comments Alk Phos (test code = Alk Phos) 106 39-136 N [facility] KingwoodTbnqmiiRPZWUCYTO4329-38-34 17:40:00 Test Item Value Reference Range Interpretation Comments Albumin Lvl (test code = Albumin Lvl) 3.8 3.5-5.0 N [facility] KingwoodRiftbgsCAQSQLJQG2819-09-24 17:40:00 Test Item Value Reference Range Interpretation Comments ALANINE AMINOTRANSFERASE 33 See_Comment N [A utomated message] (test code = ALANINE The sys tem which AMINOTRANSFERASE) generated this result transmitted ref erence range: <=65. Th e reference range was not used to int erpret this result as normal/abnormal . [facility] KingwoodBgadjcnHPPUPZUZG0439-65-75 17:40:00 Test Item Value Reference Range Interpretation Comments Creatinine Lvl (test code = Creatinine 1.0 0.5-1.4 N Lvl) [facility]anoWthphwaRVSDAHOLJC8374-39-51 17:40:00 Test Item Value Reference Range Interpretation Comments Monocytes (test code = Monocytes) 10.8 2.0-12.0 N [facility]anoYseaxhwZIBFPBKVDZ7159-18-66 17:40:00 Test Item Value Reference Range Interpretation Comments Eosinophils (test code = 14.6 See_Comment H [A utomated message] The Eosinophils) system which ge nerated this result tra nsmitted reference range : <=4.0. The reference r yadira was not used to int erpret this result as normal/abnormal . [facility]anoSyhpbziTQJCXDVQHJ0484-16-32 17:40:00 Test Item Value Reference Range Interpretation Comments Lymphocytes # (test code = Lymphocytes 2.9 1.0-5.5 N #) [facility]anoVbgwtdcHTONEAIWSS3611-00-71 17:40:00 Test Item Value Reference Range Interpretation Comments Eosinophils # (test code 1.6 See_Comment H [A utomated message] The = Eosinophils #) system whic h generated this result tra nsmitted reference range : <=0.5. The reference r yadira was not used to int erpret this result as normal/abnormal . [facility]anoKpvbpilENWHLHGWKL4839-06-63 17:40:00 Test Item Value Reference Range Interpretation Comments Lymphocytes (test code = Lymphocytes) 26.8 20.0-40.0 N [facility]anoTmhhmewKKPJQHRGAX8942-66-18 17:40:00 Test Item Value Reference Range Interpretation Comments Basophils (test code = 0.4 See_Comment N [Aut omated message] The Basophils) system which ge nerated this result tra nsmitted reference range : <=1.0. The reference r yadira was not used to int erpret this result as normal/abnormal . [facility]anoWxjgxnkJEKPCHGHPV2155-88-04 17:40:00 Test Item Value Reference Range Interpretation Comments Segs-Bands # (test code = Segs-Bands #) 5.1 1.5-8.1 N [facility]anoHdxohhiZDYASIUBBG9260-92-04 17:40:00 Test Item Value Reference Range Interpretation Comments Monocytes # (test code 1.2 See_Comment H [Aut omated message] The = Monocytes #) system which generated this result tra nsmitted reference range : <=0.8. The reference r yadira was not used to int erpret this result as normal/abnormal . [facility]anoArpnzgeIZRQXJUHCJ4232-38-83 17:40:00 Test Item Value Reference Range Interpretation Comments Segs (test code = Segs) 47.4 45.0-75.0 N [facility]anoGksuktmGVYKJLXMRS9198-40-39 17:40:00 Test Item Value Reference Range Interpretation Comments MPV (test code = MPV) 8.2 7.4-10.4 N [facility]anoJizprtzNZHYFFPFTB3329-45-30 17:40:00 Test Item Value Reference Range Interpretation Comments Platelet (test code = Platelet) 281 133-450 N [facility]anoDuufvxyWHSZVLLRZD7693-33-11 17:40:00 Test Item Value Reference Range Interpretation Comments RDW (test code = RDW) 13.1 11.5-14.5 N [facility]xjdbymNGBYURRXTA1749-28-61 17:40:00 Test Item Value Reference Range Interpretation Comments MCHC (test code = MCHC) 34.4 32.0-36.0 N [facility]anoJduqirtTFGRQBQLVJ0926-45-82 17:40:00 Test Item Value Reference Range Interpretation Comments MCH (test code = MCH) 31.1 pg 27.0-31.0 H [facility]anoMxlxreeXMTDXKYFBS4832-37-53 17:40:00 Test Item Value Reference Range Interpretation Comments MCV (test code = MCV) 90.5 80.0-94.0 N [facility]anoSikidwoQTLDBIGYKN3510-78-28 17:40:00 Test Item Value Reference Range Interpretation Comments Hgb (test code = Hgb) 15.9 14.0-18.0 N [facility]anoLimmoikDJOWNJXJFA0943-60-32 17:40:00 Test Item Value Reference Range Interpretation Comments RBC X 10x6 (test code = RBC X 10x6) 5.10 4.70-6.10 N [facility]anoKbjsirzSEAFNASFOM7733-19-47 17:40:00 Test Item Value Reference Range Interpretation Comments Hct (test code = Hct) 46.2 42.0-54.0 N [facility]anoQqkyiivYTDCRTNLHY2900-07-45 17:40:00 Test Item Value Reference Range Interpretation Comments WBC X 10x3 (test code = WBC X 10x3) 10.7 3.7-10.4 H [facility]anoKxcdmbeFQWUDUSGPB5303-33-01 17:40:00 Test Item Value Reference Range Interpretation Comments INR (test code = INR) 0.98 0.85-1.17 N [facility]anoXokuzomZGXTKHHQHG0254-28-74 17:40:00 Test Item Value Reference Range Interpretation Comments aPTT (test code = aPTT) 30.0 s 22.9-35.8 N [facility]anoHcxiiorZTLRFJFIKZ9898-60-40 17:40:00 Test Item Value Reference Range Interpretation Comments PROTIME (test code = PROTIME) 12.9 s 12.0-14.7 N [facility]woodYqneunzMZFQCJEOC8964-23-42 17:40:00 Test Item Value Reference Range Interpretation Comments A/G Ratio (test code = A/G Ratio) 1.0 0.7-1.6 N [facility] KingwoodKihsanjTFUGVDOZL7924-83-11 17:40:00 Test Item Value Reference Range Interpretation Comments B/C Ratio (test code = B/C Ratio) 12 6-25 N [facility] KingwoodNnwuseeQICYGFIKO3600-68-42 17:40:00 Test Item Value Reference Range Interpretation Comments AGAP (test code = AGAP) 12.6 10.0-20.0 N [facility] KingwoodDbraedeUUZLCHCYF4454-09-63 17:40:00 Test Item Value Reference Range Interpretation Comments Globulin (test code = Globulin) 4.0 2.0-4.0 N [facility] KingwoodCbnhwliJRCAVPOOF0438-38-92 17:40:00 Test Item Value Reference Range Interpretation Comments eGFR (test code = eGFR) 105 [facility] KingwoodShwzaxiUWLNTVUJI0044-85-02 17:40:00 Test Item Value Reference Range Interpretation Comments Sodium Lvl (test code = Sodium Lvl) 140 135-145 N [facility] KingwoodUiandxqJREFHRCUI9418-19-15 17:40:00 Test Item Value Reference Range Interpretation Comments ASPARTATE TRANSAMINASE 17 See_Comment N [Aut omated message] (test code = ASPARTATE The s ystem which TRANSAMINASE) generated this result transmitted ref erence range: <=37. Th e reference range was not used to interpr et this result as normal/abnormal . [facility] KingwoodXnabugcQNJPXNCVE3547-47-67 17:40:00 Test Item Value Reference Range Interpretation Comments Total Protein (test code = Total 7.8 6.4-8.4 N Protein) [facility] KingwoodUdxyraxZPKEPQWFC9821-35-06 17:40:00 Test Item Value Reference Range Interpretation Comments Bili Total (test code = Bili Total) 0.6 0.2-1.3 N [facility] KingwoodNvdpuoxCDAQHCEJM9201-11-45 17:40:00 Test Item Value Reference Range Interpretation Comments Calcium Lvl (test code = Calcium Lvl) 9.5 8.5-10.5 N [facility] KingwoodHudxmfbGLMKNCOII3771-88-09 17:40:00 Test Item Value Reference Range Interpretation Comments CO2 (test code = CO2) 27 24-32 N [facility] KingwoodFakrvljBFDITLDXE8789-41-08 17:40:00 Test Item Value Reference Range Interpretation Comments Chloride Lvl (test code = Chloride Lvl) 104 95-109 N [facility] KingwoodPatfnvyMKZRJAKNM6633-53-11 17:40:00 Test Item Value Reference Range Interpretation Comments Potassium Lvl (test code = Potassium 3.6 3.5-5.1 N Lvl) [facility] KingwoodDoncuzaDWTQOSKNE2758-06-96 17:40:00 Test Item Value Reference Range Interpretation Comments BUN (test code = BUN) 12 7-22 N [facility] KingwoodDafsxxhIJHYAGOGQ5859-20-27 17:40:00 Test Item Value Reference Range Interpretation Comments Glucose Lvl (test code = Glucose Lvl) 76 70-99 N [facility] KingwoodXopirowWQHAVXSNE4069-96-79 17:40:00 Test Item Value Reference Range Interpretation Comments Alk Phos (test code = Alk Phos) 106 39-136 N [facility] KingwoodUcxntjwDGEDXYXPT5115-00-97 17:40:00 Test Item Value Reference Range Interpretation Comments Albumin Lvl (test code = Albumin Lvl) 3.8 3.5-5.0 N [facility] KingwoodJgonuuySCVCZUICF4043-40-29 17:40:00 Test Item Value Reference Range Interpretation Comments ALANINE AMINOTRANSFERASE 33 See_Comment N [A utomated message] (test code = ALANINE The sys tem which AMINOTRANSFERASE) generated this result transmitted ref erence range: <=65. Th e reference range was not used to int erpret this result as normal/abnormal . [facility] KingwoodFaaplpgTOWMWCDWC3880-93-74 17:40:00 Test Item Value Reference Range Interpretation Comments Creatinine Lvl (test code = Creatinine 1.0 0.5-1.4 N Lvl) [facility]anoKdcuxusCZMYJNEMQW9544-09-99 17:40:00 Test Item Value Reference Range Interpretation Comments Monocytes (test code = Monocytes) 10.8 2.0-12.0 N [facility]anoKvjqinbOBCORYZFKT4428-53-73 17:40:00 Test Item Value Reference Range Interpretation Comments Eosinophils (test code = 14.6 See_Comment H [A utomated message] The Eosinophils) system which ge nerated this result tra nsmitted reference range : <=4.0. The reference r yadira was not used to int erpret this result as normal/abnormal . [facility]anoKhiexorQPKGFYQYMS2790-31-15 17:40:00 Test Item Value Reference Range Interpretation Comments Lymphocytes # (test code = Lymphocytes 2.9 1.0-5.5 N #) [facility]anoQwvlqibKKMGPFVLSX5177-50-76 17:40:00 Test Item Value Reference Range Interpretation Comments Eosinophils # (test code 1.6 See_Comment H [A utomated message] The = Eosinophils #) system whic h generated this result tra nsmitted reference range : <=0.5. The reference r yadira was not used to int erpret this result as normal/abnormal . [facility]anoRfklgbjAZUJFEGAZI0248-79-53 17:40:00 Test Item Value Reference Range Interpretation Comments Lymphocytes (test code = Lymphocytes) 26.8 20.0-40.0 N [facility]anoMnuatxtREEYIPROTD7291-60-67 17:40:00 Test Item Value Reference Range Interpretation Comments Basophils (test code = 0.4 See_Comment N [Aut omated message] The Basophils) system which ge nerated this result tra nsmitted reference range : <=1.0. The reference r yadira was not used to int erpret this result as normal/abnormal . [facility]anoNpkknpoAAHGXLPUEM7026-95-89 17:40:00 Test Item Value Reference Range Interpretation Comments Segs-Bands # (test code = Segs-Bands #) 5.1 1.5-8.1 N [facility]anoGcvagczMICJPCXLRC1934-70-06 17:40:00 Test Item Value Reference Range Interpretation Comments Monocytes # (test code 1.2 See_Comment H [Aut omated message] The = Monocytes #) system which generated this result tra nsmitted reference range : <=0.8. The reference r yadira was not used to int erpret this result as normal/abnormal . [facility]anoTgvwnmiEVAPZLGFJD6828-07-88 17:40:00 Test Item Value Reference Range Interpretation Comments Segs (test code = Segs) 47.4 45.0-75.0 N [facility]anoDtryiukKRJQKVHDTG1023-43-19 17:40:00 Test Item Value Reference Range Interpretation Comments MPV (test code = MPV) 8.2 7.4-10.4 N [facility]anoMtgxiqgKNIUCLSHOH6178-61-00 17:40:00 Test Item Value Reference Range Interpretation Comments Platelet (test code = Platelet) 281 133-450 N [facility]anoUvlgmrvBCSEIAYSLX9814-60-61 17:40:00 Test Item Value Reference Range Interpretation Comments RDW (test code = RDW) 13.1 11.5-14.5 N [facility]anoAklwfloBWBRBMPBTJ4854-19-94 17:40:00 Test Item Value Reference Range Interpretation Comments MCHC (test code = MCHC) 34.4 32.0-36.0 N [facility]anoMwiwqgqEUXPGSRPOM9905-65-65 17:40:00 Test Item Value Reference Range Interpretation Comments MCH (test code = MCH) 31.1 pg 27.0-31.0 H [facility]anoQxeapitNNQTNFSVBG0709-12-05 17:40:00 Test Item Value Reference Range Interpretation Comments MCV (test code = MCV) 90.5 80.0-94.0 N [facility]anoUwipyxmTWBCJXSLCK9089-80-04 17:40:00 Test Item Value Reference Range Interpretation Comments Hgb (test code = Hgb) 15.9 14.0-18.0 N [facility]anoWmiojgrAPSKYULHWW1023-79-62 17:40:00 Test Item Value Reference Range Interpretation Comments RBC X 10x6 (test code = RBC X 10x6) 5.10 4.70-6.10 N [facility]anoWdubegtRPCKCAIOLP0860-03-26 17:40:00 Test Item Value Reference Range Interpretation Comments Hct (test code = Hct) 46.2 42.0-54.0 N [facility]anoHwhdedxIOCRBKDEUQ6627-80-49 17:40:00 Test Item Value Reference Range Interpretation Comments WBC X 10x3 (test code = WBC X 10x3) 10.7 3.7-10.4 H [facility]anoKxlqkxyDNTFUCCLVC8805-47-26 17:40:00 Test Item Value Reference Range Interpretation Comments INR (test code = INR) 0.98 0.85-1.17 N [facility]anoOxdsjkfSPAUBCSVKO7808-60-26 17:40:00 Test Item Value Reference Range Interpretation Comments aPTT (test code = aPTT) 30.0 s 22.9-35.8 N [facility]anoKdsktewVTCUCNFWVH1795-86-40 17:40:00 Test Item Value Reference Range Interpretation Comments PROTIME (test code = PROTIME) 12.9 s 12.0-14.7 N [facility] KingwoodVwkemtyYUFFIDIFZ0728-65-12 17:40:00 Test Item Value Reference Range Interpretation Comments A/G Ratio (test code = A/G Ratio) 1.0 0.7-1.6 N [facility] KingwoodBanrseoBBMAHPVNC6659-91-65 17:40:00 Test Item Value Reference Range Interpretation Comments B/C Ratio (test code = B/C Ratio) 12 6-25 N [facility] KingwoodEklouscOMSBPQKNB6476-28-62 17:40:00 Test Item Value Reference Range Interpretation Comments AGAP (test code = AGAP) 12.6 10.0-20.0 N [facility] KingwoodDalwxksJBHWGEZPJ0250-77-75 17:40:00 Test Item Value Reference Range Interpretation Comments Globulin (test code = Globulin) 4.0 2.0-4.0 N [facility] KingwoodStqiurlIJSOGWSNG5564-73-59 17:40:00 Test Item Value Reference Range Interpretation Comments eGFR (test code = eGFR) 105 [facility] KingwoodBblcvvaEQKNKENUA0257-24-80 17:40:00 Test Item Value Reference Range Interpretation Comments Sodium Lvl (test code = Sodium Lvl) 140 135-145 N [facility] KingwoodLzuwoqdQYECNXKHM0020-38-69 17:40:00 Test Item Value Reference Range Interpretation Comments ASPARTATE TRANSAMINASE 17 See_Comment N [Aut omated message] (test code = ASPARTATE The s ystem which TRANSAMINASE) generated this result transmitted ref erence range: <=37. Th e reference range was not used to interpr et this result as normal/abnormal . [facility] KingwoodZaftphlJVEXHOAAE0899-51-51 17:40:00 Test Item Value Reference Range Interpretation Comments Total Protein (test code = Total 7.8 6.4-8.4 N Protein) [facility] KingwoodLjqdyfgDEUNYFMCJ2937-79-29 17:40:00 Test Item Value Reference Range Interpretation Comments Bili Total (test code = Bili Total) 0.6 0.2-1.3 N [facility] KingwoodAotlhycMRZDDJRFD6979-21-92 17:40:00 Test Item Value Reference Range Interpretation Comments Calcium Lvl (test code = Calcium Lvl) 9.5 8.5-10.5 N [facility] KingwoodLoqleyfGGKWJKZIV4364-17-23 17:40:00 Test Item Value Reference Range Interpretation Comments CO2 (test code = CO2) 27 24-32 N [facility] KingwoodLlstgmyMUXOOBIPW8978-77-54 17:40:00 Test Item Value Reference Range Interpretation Comments Chloride Lvl (test code = Chloride Lvl) 104 95-109 N [facility] KingwoodEofpdgqVMIARBFGD6077-25-74 17:40:00 Test Item Value Reference Range Interpretation Comments Potassium Lvl (test code = Potassium 3.6 3.5-5.1 N Lvl) [facility] KingwoodKxmtsdjZGDOHSHRS5297-10-86 17:40:00 Test Item Value Reference Range Interpretation Comments BUN (test code = BUN) 12 7-22 N [facility] KingwoodQujtaujKKWWPIEHS0852-64-13 17:40:00 Test Item Value Reference Range Interpretation Comments Glucose Lvl (test code = Glucose Lvl) 76 70-99 N [facility]PvdjwxnYKDSNSSUZ5060-64-32 17:40:00 Test Item Value Reference Range Interpretation Comments Alk Phos (test code = Alk Phos) 106 39-136 N [facility]woodHouywhdHUTENRWJJ2182-17-58 17:40:00 Test Item Value Reference Range Interpretation Comments Albumin Lvl (test code = Albumin Lvl) 3.8 3.5-5.0 N [facility]woodTqtdpiiBYQOUPVQR7131-50-74 17:40:00 Test Item Value Reference Range Interpretation Comments ALANINE AMINOTRANSFERASE 33 See_Comment N [A utomated message] (test code = ALANINE The sys tem which AMINOTRANSFERASE) generated this result transmitted ref erence range: <=65. Th e reference range was not used to int erpret this result as normal/abnormal . [facility]woodUtkfayvRQJEYBWVE3169-01-02 17:40:00 Test Item Value Reference Range Interpretation Comments Creatinine Lvl (test code = Creatinine 1.0 0.5-1.4 N Lvl) [facility]TvosrxlGCMGJRMZDL8410-26-04 17:40:00 Test Item Value Reference Range Interpretation Comments Monocytes (test code = Monocytes) 10.8 2.0-12.0 N [facility]anoIeqnkpqOPIFGLAEBX9906-68-95 17:40:00 Test Item Value Reference Range Interpretation Comments Eosinophils (test code = 14.6 See_Comment H [A utomated message] The Eosinophils) system which ge nerated this result tra nsmitted reference range : <=4.0. The reference r yadira was not used to int erpret this result as normal/abnormal . [facility]anoSmxnwphHZRIQPUZHE7322-54-58 17:40:00 Test Item Value Reference Range Interpretation Comments Lymphocytes # (test code = Lymphocytes 2.9 1.0-5.5 N #) [facility]anoKbihdfkSCTFYUTPJI0857-47-47 17:40:00 Test Item Value Reference Range Interpretation Comments Eosinophils # (test code 1.6 See_Comment H [A utomated message] The = Eosinophils #) system whic h generated this result tra nsmitted reference range : <=0.5. The reference r yadira was not used to int erpret this result as normal/abnormal . [facility]anoGfpsejlHMFKBTZBZD7133-93-52 17:40:00 Test Item Value Reference Range Interpretation Comments Lymphocytes (test code = Lymphocytes) 26.8 20.0-40.0 N [facility]anoLqinemqQGGOOCMJME5840-13-89 17:40:00 Test Item Value Reference Range Interpretation Comments Basophils (test code = 0.4 See_Comment N [Aut omated message] The Basophils) system which ge nerated this result tra nsmitted reference range : <=1.0. The reference r yadira was not used to int erpret this result as normal/abnormal . [facility]anoBdrdaquWJJEBYWJQG6133-84-19 17:40:00 Test Item Value Reference Range Interpretation Comments Segs-Bands # (test code = Segs-Bands #) 5.1 1.5-8.1 N [facility]anoIualrolCONLRCJGAG1987-06-90 17:40:00 Test Item Value Reference Range Interpretation Comments Monocytes # (test code 1.2 See_Comment H [Aut omated message] The = Monocytes #) system which generated this result tra nsmitted reference range : <=0.8. The reference r yadira was not used to int erpret this result as normal/abnormal . [facility]anoSpgawayCRIXAIARQP9595-81-33 17:40:00 Test Item Value Reference Range Interpretation Comments Segs (test code = Segs) 47.4 45.0-75.0 N [facility]anoEjajktnFSWBTWGFAN3548-48-31 17:40:00 Test Item Value Reference Range Interpretation Comments MPV (test code = MPV) 8.2 7.4-10.4 N [facility]anoGrlaberFLWKLGWBNZ6004-00-13 17:40:00 Test Item Value Reference Range Interpretation Comments Platelet (test code = Platelet) 281 133-450 N [facility]anoDsvpsqpYDSHGXBUQJ4000-49-42 17:40:00 Test Item Value Reference Range Interpretation Comments RDW (test code = RDW) 13.1 11.5-14.5 N [facility]anoJhhhfgoFNKCWIYLPS3555-24-72 17:40:00 Test Item Value Reference Range Interpretation Comments MCHC (test code = MCHC) 34.4 32.0-36.0 N [facility]anoCzlhalfWAOVISJSBL9743-74-28 17:40:00 Test Item Value Reference Range Interpretation Comments MCH (test code = MCH) 31.1 pg 27.0-31.0 H [facility]anoRvrladoHSCTNOZOKB6182-25-22 17:40:00 Test Item Value Reference Range Interpretation Comments MCV (test code = MCV) 90.5 80.0-94.0 N [facility]anoQbwqdrmUQGSNJZLME7938-85-44 17:40:00 Test Item Value Reference Range Interpretation Comments Hgb (test code = Hgb) 15.9 14.0-18.0 N [facility]anoCjlspbhLVNTNNPKYV1907-51-37 17:40:00 Test Item Value Reference Range Interpretation Comments RBC X 10x6 (test code = RBC X 10x6) 5.10 4.70-6.10 N [facility]anoNyvzsupGUEPZVSGGU2868-24-16 17:40:00 Test Item Value Reference Range Interpretation Comments Hct (test code = Hct) 46.2 42.0-54.0 N [facility]anoXdncourIRLFVACTJF6819-27-91 17:40:00 Test Item Value Reference Range Interpretation Comments WBC X 10x3 (test code = WBC X 10x3) 10.7 3.7-10.4 H [facility]anoPtrdwrpNULZGKUOHM8955-73-98 17:40:00 Test Item Value Reference Range Interpretation Comments INR (test code = INR) 0.98 0.85-1.17 N [facility]anoLxdqkpeBMOWTAUIRA4698-51-05 17:40:00 Test Item Value Reference Range Interpretation Comments aPTT (test code = aPTT) 30.0 s 22.9-35.8 N [facility]anoAlcdehqDUJEPWJWFY7808-49-00 17:40:00 Test Item Value Reference Range Interpretation Comments PROTIME (test code = PROTIME) 12.9 s 12.0-14.7 N [facility]woodSgsmayeQYELNCIFG5178-79-32 17:40:00 Test Item Value Reference Range Interpretation Comments A/G Ratio (test code = A/G Ratio) 1.0 0.7-1.6 N [facility]woodKztbmnzIJMUNANLD8126-37-01 17:40:00 Test Item Value Reference Range Interpretation Comments B/C Ratio (test code = B/C Ratio) 12 6-25 N [facility]woodNtkllhzWEORECTAC3182-12-20 17:40:00 Test Item Value Reference Range Interpretation Comments AGAP (test code = AGAP) 12.6 10.0-20.0 N [facility]woodWijynbpUOFPUIRGY2909-20-38 17:40:00 Test Item Value Reference Range Interpretation Comments Globulin (test code = Globulin) 4.0 2.0-4.0 N [facility]woodOayqljfXMFCZDPXP8808-37-77 17:40:00 Test Item Value Reference Range Interpretation Comments eGFR (test code = eGFR) 105 [facility]woodStitraxWBIRADXAH5985-33-49 17:40:00 Test Item Value Reference Range Interpretation Comments Sodium Lvl (test code = Sodium Lvl) 140 135-145 N [facility]woodHobijseQPLTDEHAZ6650-52-49 17:40:00 Test Item Value Reference Range Interpretation Comments ASPARTATE TRANSAMINASE 17 See_Comment N [Aut omated message] (test code = ASPARTATE The s ystem which TRANSAMINASE) generated this result transmitted ref erence range: <=37. Th e reference range was not used to interpr et this result as normal/abnormal . [facility]woodWpixlpsSVEBDHAKY5026-09-84 17:40:00 Test Item Value Reference Range Interpretation Comments Total Protein (test code = Total 7.8 6.4-8.4 N Protein) [facility]woodJkqpuabOHVRLJNIV1689-81-69 17:40:00 Test Item Value Reference Range Interpretation Comments Bili Total (test code = Bili Total) 0.6 0.2-1.3 N [facility]woodFzdhddcDHJRQBCRV8805-93-81 17:40:00 Test Item Value Reference Range Interpretation Comments Calcium Lvl (test code = Calcium Lvl) 9.5 8.5-10.5 N [facility] KingwoodGawimghCAVIFWCHR6247-56-33 17:40:00 Test Item Value Reference Range Interpretation Comments CO2 (test code = CO2) 27 24-32 N [facility]woodDpuyxtnLYTKCTFNN5653-97-56 17:40:00 Test Item Value Reference Range Interpretation Comments Chloride Lvl (test code = Chloride Lvl) 104 95-109 N [facility]woodPytscsqHOBZSHQWG2486-37-04 17:40:00 Test Item Value Reference Range Interpretation Comments Potassium Lvl (test code = Potassium 3.6 3.5-5.1 N Lvl) [facility]woodYjzvqssLBEVQNMYX8188-44-45 17:40:00 Test Item Value Reference Range Interpretation Comments BUN (test code = BUN) 12 7-22 N [facility]woodVoewqaqHFUVZTYJN9706-01-79 17:40:00 Test Item Value Reference Range Interpretation Comments Glucose Lvl (test code = Glucose Lvl) 76 70-99 N [facility]woodEkpesshSFLHNTZUX2744-08-46 17:40:00 Test Item Value Reference Range Interpretation Comments Alk Phos (test code = Alk Phos) 106 39-136 N [facility]woodEzbjntoPCHUREGJR9911-76-48 17:40:00 Test Item Value Reference Range Interpretation Comments Albumin Lvl (test code = Albumin Lvl) 3.8 3.5-5.0 N [facility]woodGsqrcwyJLYLJTOVL4656-18-88 17:40:00 Test Item Value Reference Range Interpretation Comments ALANINE AMINOTRANSFERASE 33 See_Comment N [A utomated message] (test code = ALANINE The sys tem which AMINOTRANSFERASE) generated this result transmitted ref erence range: <=65. Th e reference range was not used to int erpret this result as normal/abnormal . [facility]woodKtikxmnOGTIHBBFV6054-63-71 17:40:00 Test Item Value Reference Range Interpretation Comments Creatinine Lvl (test code = Creatinine 1.0 0.5-1.4 N Lvl) [facility]anoLftshwlQMXBSGRBQF3885-08-07 17:40:00 Test Item Value Reference Range Interpretation Comments Monocytes (test code = Monocytes) 10.8 2.0-12.0 N [facility]anoFtlhyuiGWRLDQMZPF4218-37-93 17:40:00 Test Item Value Reference Range Interpretation Comments Eosinophils (test code = 14.6 See_Comment H [A utomated message] The Eosinophils) system which ge nerated this result tra nsmitted reference range : <=4.0. The reference r yadira was not used to int erpret this result as normal/abnormal . [facility]anoJvuftkgJGJWSIWQOU5601-70-85 17:40:00 Test Item Value Reference Range Interpretation Comments Lymphocytes # (test code = Lymphocytes 2.9 1.0-5.5 N #) [facility]anoGmwpanwZZNTFYQYNG7964-41-32 17:40:00 Test Item Value Reference Range Interpretation Comments Eosinophils # (test code 1.6 See_Comment H [A utomated message] The = Eosinophils #) system whic h generated this result tra nsmitted reference range : <=0.5. The reference r yadira was not used to int erpret this result as normal/abnormal . [facility]anoGjepwbuNDOCHREGRM3158-70-18 17:40:00 Test Item Value Reference Range Interpretation Comments Lymphocytes (test code = Lymphocytes) 26.8 20.0-40.0 N [facility]anoKfslokyGSUADYHIAS9136-15-06 17:40:00 Test Item Value Reference Range Interpretation Comments Basophils (test code = 0.4 See_Comment N [Aut omated message] The Basophils) system which ge nerated this result tra nsmitted reference range : <=1.0. The reference r yadira was not used to int erpret this result as normal/abnormal . [facility]anoTsnbbpkFZOQYTCPCZ5834-38-85 17:40:00 Test Item Value Reference Range Interpretation Comments Segs-Bands # (test code = Segs-Bands #) 5.1 1.5-8.1 N [facility]anoWvqustqJPYBPGUCXQ9974-23-67 17:40:00 Test Item Value Reference Range Interpretation Comments Monocytes # (test code 1.2 See_Comment H [Aut omated message] The = Monocytes #) system which generated this result tra nsmitted reference range : <=0.8. The reference r yadira was not used to int erpret this result as normal/abnormal . [facility]anoLewnxxrYUHTSISRNC4878-40-51 17:40:00 Test Item Value Reference Range Interpretation Comments Segs (test code = Segs) 47.4 45.0-75.0 N [facility]anoLldpbjsFGGRLWJHOP2059-09-79 17:40:00 Test Item Value Reference Range Interpretation Comments MPV (test code = MPV) 8.2 7.4-10.4 N [facility]anoIeasagfXCXTHMUQRX9894-71-93 17:40:00 Test Item Value Reference Range Interpretation Comments Platelet (test code = Platelet) 281 133-450 N [facility]anoHyfrurfFAAGECIKBK7316-51-68 17:40:00 Test Item Value Reference Range Interpretation Comments RDW (test code = RDW) 13.1 11.5-14.5 N [facility]anoIaybppsRZPVWCTKHH0872-00-13 17:40:00 Test Item Value Reference Range Interpretation Comments MCHC (test code = MCHC) 34.4 32.0-36.0 N [facility]anoOmzbssgRMACYWJINB5744-35-69 17:40:00 Test Item Value Reference Range Interpretation Comments MCH (test code = MCH) 31.1 pg 27.0-31.0 H [facility]anoEkxgtirUEFFRPTWKP2748-34-70 17:40:00 Test Item Value Reference Range Interpretation Comments MCV (test code = MCV) 90.5 80.0-94.0 N [facility]anoSqcttfrPCUXYAJQGD3778-90-64 17:40:00 Test Item Value Reference Range Interpretation Comments Hgb (test code = Hgb) 15.9 14.0-18.0 N [facility]anoTmvvffjVDVRVJIGHL4265-77-63 17:40:00 Test Item Value Reference Range Interpretation Comments RBC X 10x6 (test code = RBC X 10x6) 5.10 4.70-6.10 N [facility]anoMnxnffgNXHGRSIWKP4863-81-02 17:40:00 Test Item Value Reference Range Interpretation Comments Hct (test code = Hct) 46.2 42.0-54.0 N [facility]anoPsnbrfmJFBLVCGVTQ2879-13-28 17:40:00 Test Item Value Reference Range Interpretation Comments WBC X 10x3 (test code = WBC X 10x3) 10.7 3.7-10.4 H [facility]anoGzwcmwwDGCLSZBMJA3629-85-90 17:40:00 Test Item Value Reference Range Interpretation Comments INR (test code = INR) 0.98 0.85-1.17 N [facility]anoCcjuuzmPGXKQZAJNO9193-54-59 17:40:00 Test Item Value Reference Range Interpretation Comments aPTT (test code = aPTT) 30.0 s 22.9-35.8 N [facility]anoJsqapwpTSRAFPHSFR4542-98-95 17:40:00 Test Item Value Reference Range Interpretation Comments PROTIME (test code = PROTIME) 12.9 s 12.0-14.7 N [facility] Notes Date/Time Note Provider Source 2022-09-25 [facility] 11:55:52-00:00 Thank you. Hopefully they will not need to use i t very often. Electronically signed by Soco Mayen MD at 11:56 AM CDT 2022-09-25 Formatting of this note might be differe nt from the original. Claribel Smart RN [facility] 10:36:06-00:00 Medication has been approved . Approval ID is [id number] good from 08/26/2022-09/25/2023. Pharmacy has been notified.Pharmacy will contact pt. Cost with PA will be 2,800 $. Please review, thank you. 2022-09-25 [facility] 09:45:34-00:00 Images from the original note were not included. Received fax from pharmacy T 2022-09-24 Formatting of this note might be differe nt from the original. Bob Cuevas RN [facility] 18:25:15-00:00 Images from the original note were not included. Received fax from pharmacy T 2022-09-24 Formatting of this note is different from the or iginal. [facility] 13:00:00-00:00 Images from the original note were not included. Venipuncture collection perf ormed by clean technique on the right anticubitus. Total of 1 attempts were made. Slight pressure and a bandage/dressing were applied to the site(s). The patient experienced no complications. The follow ing specimens were processed according to instructions and sent to [facility] laboratories per lab order on 09/24/2022 : LT BLUE SST 1 RED LAV PPT DK GREEN (LiHep) DK GREEN (SodH) AVILA DK BLUE (K2) DK BLUE (S) ACD Blood Culture NIPT/NTD Patient has been identified by and name and was provided with cup, antiseptic towelette, and clean catch instructions. 1 urine specimen(s) sent. Unpreserved 1 Urine Culture Aptima tube Other urine Electronically signed by Etelvina Sampson at 11:26 AM T 2022-09-23 Addended by: SOCO MAYEN MD on: 09/23/2022 12:25 PM [facility] 10:20:00-00:00 Modules accepted: Level of Service Electronically signed by Soco Mayen MD at 12:25 PM [facility]
[2022-10-14] MEDS ORDERED: LORazepam 2 MG/ML VIAL ONE (21:55)
[2022-10-14] MEDS ORDERED: LEVETIRACETAM 500 MG/5 ML VIAL IV ONE (21:55)
[2022-10-14] MEDS ORDERED: NA CHLORIDE 0.9% 100 ML ONE (21:56)
[2022-10-14] MEDS ORDERED: PROMETHAZINE INJ 25 MG/ML AMP ONE (22:12)
[2022-10-14 22:16] LABS: Absolute Lymphocytes (CBC) 3.8 K/uL (0.7-4.9); Hematocrit 45.1 % (39.6-49.0); Lymphocytes % 28.1 % (15.3-44.8); MCV 93.2 fL (80-100); MPV 7.3 fL (7.6-11.3); Platelets 252 thou/uL (152-406); RBC Red Blood Cell Count 4.84 M/uL (4.33-5.43)
--- NOTE | 2022-10-14 22:23 | RAD REPORT ---
EXAM DESCRIPTION: RAD - Chest Single View - 10/14/2022 10:17 pm CLINICAL HISTORY: COUGH Chest pain. COMPARISON: <Comparisons> FINDINGS: Portable technique limits examination quality. Interstitial lung markings are mildly prominent. The heart is mildly enlarged in size. No displaced f ractures.Stimulator device present. IMPRESSION: Interstitial lung markings are mildly prominent which can be seen viral infection or int erstitial pulmonary edema.
[2022-10-14 22:32] LABS: Protime INR 1.01
[2022-10-14 22:59] LABS: ALT/SGPT 37 U/L (16-61); AST/SGOT 19 U/L (15-37); Albumin 3.5 g/dL (3.4-5.0); Alkaline Phosphatase 131 U/L (45-117); BUN Blood Urea Nitrogen 10 mg/dL (7-18); Bicarbonate 21 mEq/L (21-32); Bilirubin Total 0.3 mg/dL (0.2-1.0); Glomerular Filtration Rate 67 ml/min (=/>90); Glucose Level 115 mg/dL (74-106); Lipase 71 U/L (13-75); Magnesium 2.3 mg/dL (1.6-2.4); NT PRO-BNP 8 pg/mL (<125); Protein, Total 7.4 g/dL (6.4-8.2); Sodium Level 134 mEq/L (136-145); Troponin High Sensitivity 8.8 pg/mL (<58.9)
[2022-10-14 23:00] LABS: Bilirubin Direct < 0.1 mg/dL (0-0.2)
[2022-10-14 23:01] LABS: Bilirubin Indirect, Calculated ND mg/dL (0.2-0.8)
[2022-10-15] MEDS ORDERED: KCL 20 MEQ/100 mL IVPB 100 ML IV ONE (00:18)
--- NOTE | 2022-10-15 01:47 | ER ---
Nurse's Notes [facility] Name: Jw Alfaro Age: 32 yrs Sex: Male : 1990 Arrival Date: 10/14/2022 Time: 21:25 Bed 7 Private MD: Diagnosis: Epileptic seizures related to external causes, not intractable, without status epilepticus;Hypokalemia Presentation: 10/14 21:35 Chief complaint: EMS states: He was found in the bathtub having a seizure. He was given vc1 a total of 20 mg diazepam and we gave 1 mg of ativan. 21:35 Coronavirus screen: Client denies travel out of the [place] in the last 14 days. At this vc1 time, the client does not indicate any symptoms associated with coronavirus-19. Ebola Screen: Patient negative for fever greater than or equal to 101.5 degrees Fahrenheit, and additional compatible Ebola Virus Disease symptoms Patient denies exposure to infectious person. Patient denies travel to an Ebola-affected area in the 21 days before illness onset. No symptoms or risks identified at this time. Initial Sepsis Screen: Does the patient meet any 2 criteria? Altered Mental Status. HR > 90 bpm. Yes Does the patient have a suspected source of infection? No. Patient's initial sepsis screen is negative. Risk Assessment: Do you want to hurt yourself or someone else? Patient reports no desire to harm self or others. Onset of symptoms was October 14, 2022. 21:35 Method Of Arrival: EMS: [facility] vc1 21:35 Acuity: BARTOLO 2 vc1 Triage Assessment: 22:15 General: Appears distressed, Behavior is combative, restless, uncooperative. Pain: vc1 Unable to use pain scale. Does not appear to understand pain scale. EENT: No deficits noted. No signs and/or symptoms were reported regarding the EENT system. Neuro: Level of Consciousness is combative. Cardiovascular: No deficits noted. Rhythm is sinus tachycardia. Respiratory: Airway is patent Respiratory effort is even, unlabored, Respiratory pattern is regular, symmetrical. GI: No deficits noted. No signs and/or symptoms were reported involving the gastrointestinal system. : No deficits noted. No signs and/or symptoms were reported regarding the genitourinary system. Derm: No deficits noted. No signs and/or symptoms reported regarding the dermatologic system. Musculoskeletal: No deficits noted. No signs and/or symptoms reported regarding the musculoskeletal system. Historical: - Allergies: 22:12 NKA; vc1 - PMHx: 22:12 Hypercholesterolemia; Hypertensive disorder; Seizures; vc1 - PSHx: 22:12 temporal lobectomy- 2004; vagal nerve stimulator- 2011; vc1 - Immunization history:: unknown. - Social history:: Smoking status: Patient denies any tobacco usage or history of. - Family history:: not pertinent. Screenin:35 [facility] ED Fall Risk Assessment (Adult) History of falling in the last 3 months, vc1 including since admission No falls in past 3 months (0 pts) Confusion or Disorientation No (0 pts) Intoxicated or Sedated No (0 pts) Impaired Gait No (0 pts) Mobility Assist Device Used No (0 pt) Altered Elimination No (0 pt) Score/Fall Risk Level 0 - 2 = Low Risk Oriented to surroundings, Maintained a safe environment, Educated pt \T\ family on fall prevention, incl call for assistance when getting out of bed. Abuse screen: Denies threats or abuse. Nutritional screening: No deficits noted. Tuberculosis screening: No symptoms or risk factors identified. Assessment: 22:18 Reassessment: Will do EKG once patient is cooperative. vc1 23:44 Reassessment: No changes from previously documented assessment. Neuro: Iverson vc1 Agitation-Sedation Scale (RASS): -3 Moderate Sedation. 10/15 00:39 Reassessment: No changes from previously documented assessment. Patient and/or family vc1 updated on plan of care and expected duration. Pain level reassessed. Vital Signs: 10/14 21:35 Pulse 140; Resp 20; Pulse Ox 95% on R/A; vc1 21:35 BP 118 / 84; vc1 22:15 BP 122 / 98; Pulse 115; Resp 20; Pulse Ox 95% ; vc1 23:00 BP 142 / 94; Pulse 123; Resp 20; Pulse Ox 96% ; vc1 10/15 00:00 BP 141 / 88; Pulse 111; Resp 20; Pulse Ox 96% on R/A; vc1 ED Course: 10/14 21:32 Patient arrived in ED. kl 21:37 Robson Mathur MD is Attending Physician. jordi 22:12 Triage completed. vc1 22:14 Arm band placed on right wrist. vc1 22:14 Patient has correct armband on for positive identification. Side rails up X2. Adult w/ vc1 patient. Seizure precautions initiated. 22:19 XRAY Chest (1 view) In Process Unspecified. EDMS 22:20 Jacque Pillai, RN is Primary Nurse. vc1 10/15 00:48 CT Head Brain wo Cont In Process Unspecified. EDMS 01:46 Jose House MD is Referral Physician. [facility] 02:06 No provider procedures requiring assistance completed. IV discontinued, intact, vc1 bleeding controlled, No redness/swelling at site. Pressure dressing applied. Administered Medications: 10/14 22:00 Drug: Ativan IVP 2 mg Route: IVP; Site: right forearm; vc1 22:18 Drug: Keppra IV 2000 mg Route: IV; Rate: per protocol; Site: right forearm; vc1 22:20 Drug: Promethazine IVP 25 mg Route: IVP; Site: right forearm; vc1 23:45 Drug: NS 0.9% IV 1000 ml Route: IV; Rate: 1 bolus; Site: right forearm; vc1 10/15 00:28 Drug: Potassium Chloride IV 20 mEq Route: IV; Rate: per protocol; Site: right forearm; vc1 00:29 Drug: NS 0.9% IV 1000 ml Route: IV; Rate: 1 bolus; Site: right forearm; vc1 Medication: 10/14 22:14 VIS not applicable for this client. vc1 Outcome: 10/15 01:46 Discharge ordered by . [facility] 02:06 Discharged to home via wheelchair, with family. vc1 02:06 Condition: good 02:06 Discharge instructions given to farm implement mechanic, Instructed on discharge instructions, follow up and referral plans. medication usage, Demonstrated understanding of instructions, follow-up care, medications, Prescriptions given X 2. 02:06 Patient left the ED. vc1 Signatures: Dispatcher [employer] Megan Forrest, Robson Gonsalves RN, MD MD cha Calcote, Vanessa, SHARONDA RN vc1
--- NOTE | 2022-10-15 01:48 | EDPHYS ---
Physician Documentation [facility] Name: Jw Alfaro Age: 32 yrs Sex: Male : 1990 Arrival Date: 10/14/2022 Time: 21:25 Bed 7 Private MD: ED Physician Robson Mathur HPI: 10/14 21:44 This 32 yrs old Male presents to ER via Unassigned with complaints of jordi seizures, this eveneng. 21:44 The patient presents with confusion, decreased mental status, decreased responsiveness. jordi Onset: The symptoms/episode began/occurred just prior to arrival, today. Possible causes: CVA or TIA, drug use, alcohol, low blood sugar, seizure, sepsis. The patient presents with a history of multiple seizures, an unknown number, in status epilepticus. Character of seizure(s): Loss of consciousness: the patient experienced loss of consciousness, Motor activity: generalized, Incontinence: incontinent of bladder, Apnea: the patient did not experience apnea, Circulation: the patient did not experience evidence of pulse disturbance. Seizure onset: today. Context: the seizure(s) was witnessed, by family. Seizure Hx: Last seizure: The patient's last seizure was approximately 3 week(s) ago. Associated injury: The patient did not suffer any apparent associated injury. EMS care: Ativan, supplemental oxygen. Current symptoms: confusion. Associated signs and symptoms: Pertinent positives: combativeness, confusion. Current symptoms: In the emergency department the patient's symptoms are unchanged from the initial presentation, despite EMS interventions. Patient's baseline: Neuro: alert and fully oriented. The patient has experienced similar episodes in the past, multiple times. Historical: - Allergies: 22:12 NKA; vc1 - PMHx: 22:12 Hypercholesterolemia; Hypertensive disorder; Seizures; vc1 - PSHx: 22:12 temporal lobectomy- 2004; vagal nerve stimulator- 2011; vc1 - Immunization history:: unknown. - Social history:: Smoking status: Patient denies any tobacco usage or history of. - Family history:: not pertinent. ROS: 21:46 Constitutional: Negative for fever, chills, and weight loss, Eyes: Negative for injury, jordi pain, redness, and discharge, ENT: Negative for injury, pain, and discharge, Neck: Negative for injury, pain, and swelling, Cardiovascular: Negative for chest pain, palpitations, and edema, Respiratory: Negative for shortness of breath, cough, wheezing, and pleuritic chest pain, Abdomen/GI: Negative for abdominal pain, nausea, vomiting, diarrhea, and constipation, Back: Negative for injury and pain, : Negative for injury, bleeding, discharge, and swelling, MS/Extremity: Negative for injury and deformity, Skin: Negative for injury, rash, and discoloration, Allergy/Immunology: Negative for hives, rash, and allergies, Endocrine: Negative for neck swelling, polydipsia, polyuria, polyphagia, and marked weight changes, Hematologic/Lymphatic: Negative for swollen nodes, abnormal bleeding, and unusual bruising. 21:46 Neuro: Positive for altered mental status, seizure activity, weakness. Exam: 21:46 Chest/axilla: Normal chest wall appearance and motion. Nontender with no deformity. jordi No lesions are appreciated. Respiratory: Lungs have equal breath sounds bilaterally, clear to auscultation and percussion. No rales, rhonchi or wheezes noted. No increased work of breathing, no retractions or nasal flaring. Abdomen/GI: Soft, non-tender, with normal bowel sounds. No distension or tympany. No guarding or rebound. No evidence of tenderness throughout. Back: No spinal tenderness. No costovertebral tenderness. Full range of motion. Male : Normal genitalia with no discharge or lesions. Skin: Warm, dry with normal turgor. Normal color with no rashes, no lesions, and no evidence of cellulitis. 21:46 Respiratory: the patient does not display signs of respiratory distress, Respirations: normal, Breath sounds: bronchial sounds, decreased breath sounds, that are mild, rhonchi, that are mild, Respiratory rate: 24 21:46 Musculoskeletal/extremity: Extremities: all appear grossly normal, with no appreciated pain with palpation, ROM: no acute changes, Circulation is intact in all extremities. Sensation intact. Compartment Syndrome exam of affected extremity: is normal. DVT Exam: No signs of deep vein thrombosis. no pain, no swelling, no tenderness, negative Homans' sign noted on exam, no appreciated bluish discoloration, no erythema, no increased warmth. 21:46 Skin: Appearance: Color: normal in color, Temperature: warm, Moisture: normal moisture, petechiae, not noted, ecchymosis, not noted, flushing, not noted. 21:46 Neuro: Orientation: Not oriented to person, place, time, situation, Mentation: confused, Memory: unable to test, Cranial nerves: no acute changes, Cerebellar function: unable to test, Motor: moves all fours, strength is normal, Sensation: unable to test, Gait: not tested. seizure activity, is not displayed by the patient. 10/15 00:24 ECG was reviewed by the Attending Physician. [facility] Vital Signs: 10/14 21:35 Pulse 140; Resp 20; Pulse Ox 95% on R/A; vc1 21:35 BP 118 / 84; vc1 22:15 BP 122 / 98; Pulse 115; Resp 20; Pulse Ox 95% ; vc1 23:00 BP 142 / 94; Pulse 123; Resp 20; Pulse Ox 96% ; vc1 10/15 00:00 BP 141 / 88; Pulse 111; Resp 20; Pulse Ox 96% on R/A; vc1 MDM: 10/14 21:37 Patient medically screened. [facility] 21:49 Differential Diagnosis: electrolyte abnormality, alcohol intoxication, hypoglycemia, jordi intracranial bleed, pneumonia, seizure, sepsis, TIA, UTI, volume depletion, drug overdose, cardiac arrhythmia, seizure, TIA. Data reviewed: vital signs, nurses notes, lab test result(s), EKG, radiologic studies, CT scan, plain films. Consideration of Admission/Observation Escalation of care including admission/observation considered. I considered the following discharge prescriptions or medication management in the emergency department Medications were administered in the Emergency Department. See MAR. Independent interpretation of the following test(s) in the Emergency Department EKG: See my EKG interpretation above. Test considered but Not performed: MRI: no brain mri. Historians other than the Patient: Family Member: mom well informed. Care significantly affected by the following chronic conditions: seizure. 10/14 21:43 Order name: Basic Metabolic Panel; Complete Time: 23:48 [facility] 10/14 21:43 Order name: CBC with Diff; Complete Time: 23:48 [facility] 10/14 21:43 Order name: LFT's; Complete Time: 23:48 [facility] 10/14 21:43 Order name: Magnesium; Complete Time: 23:48 [facility] 10/14 21:43 Order name: NT PRO-BNP; Complete Time: 23:48 [facility] 10/14 21:43 Order name: Troponin HS; Complete Time: 23:48 [facility] 10/14 21:55 Order name: Acetaminophen; Complete Time: 23:48 [facility] 10/14 21:55 Order name: ETOH Level; Complete Time: 23:48 [facility] 10/14 21:55 Order name: Ptt, Activated; Complete Time: 23:48 [facility] 10/14 21:55 Order name: Salicylate; Complete Time: 23:48 [facility] 10/14 22:18 Order name: Lipase [facility] 10/14 22:21 Order name: Protime (+INR); Complete Time: 23:48 [facility] 10/14 22:22 Order name: Lipase; Complete Time: 23:48 [facility] 10/14 21:43 Order name: XRAY Chest (1 view); Complete Time: 23:48 [facility] 10/14 21:43 Order name: CT Head Brain wo Cont [facility] 10/14 21:43 Order name: EKG; Complete Time: 21:44 [facility] 10/14 21:43 Order name: EKG - Nurse/Tech; Complete Time: 00:29 [facility] 10/14 21:43 Order name: IV Saline Lock; Complete Time: 22:17 [facility] 10/14 21:43 Order name: Labs collected and sent; Complete Time: 22:17 [facility] 10/14 21:43 Order name: O2 Per Protocol; Complete Time: 22:17 [facility] 10/14 21:43 Order name: O2 Sat Monitoring; Complete Time: 22:17 [facility] 10/14 21:43 Order name: Restrain Patient; Complete Time: 22:17 [facility] 10/14 21:44 Order name: Seizure Precautions; Complete Time: 22:17 [facility] EC/29 00:24 Rate is 89 beats/min. Rhythm is regular. QRS [place] is Normal. [place] interval is normal. QRS jordi interval is normal. QT interval is normal. No Q waves. T waves are Normal. No ST changes noted. Clinical impression: NSR w/ Non-specific ST/T Changes and No evidence of ischemia. Interpreted by me. Reviewed by me. Administered Medications: 10/14 22:00 Drug: Ativan IVP 2 mg Route: IVP; Site: right forearm; vc1 22:18 Drug: Keppra IV 2000 mg Route: IV; Rate: per protocol; Site: right forearm; vc1 22:20 Drug: Promethazine IVP 25 mg Route: IVP; Site: right forearm; vc1 23:45 Drug: NS 0.9% IV 1000 ml Route: IV; Rate: 1 bolus; Site: right forearm; vc1 10/15 00:28 Drug: Potassium Chloride IV 20 mEq Route: IV; Rate: per protocol; Site: right forearm; vc1 00:29 Drug: NS 0.9% IV 1000 ml Route: IV; Rate: 1 bolus; Site: right forearm; vc1 Disposition Summary: 10/15/22 01:46 Discharge Ordered Location: Home jordi Problem: new jordi Symptoms: have improved jordi Condition: Stable jordi Diagnosis - Epileptic seizures related to external causes, not intractable, without status jordi epilepticus - Hypokalemia jordi Followup: jordi - With: Private Physician - When: 2 - 3 days - Reason: Recheck today's complaints, Continuance of care, Re-evaluation by your physician Followup: jordi - With: - When: 2 - 3 days - Reason: Recheck today's complaints, Re-evaluation by your physician Discharge Instructions: - Discharge Summary Sheet jordi - Potassium Content of Foods jordi - Epilepsy jordi - Seizure, Adult jordi - Seizure, Adult, [id number] jordi - Epilepsy, [id number] jordi - Hypokalemia [facility] Forms: - Medication Reconciliation Form [facility] - Thank You Letter [facility] - Antibiotic Education jordi - Prescription Opioid Use jordi - Patient Portal Instructions [facility] - Leadership Thank You Letter [facility] Prescriptions: - Diastat 2.5 mg Rectal Kit - apply 10 milligram by RECTAL route once may repeat once in 4 hours; 4 jordi Applicator; Refills: 0, Product Selection Permitted - Keppra 500 mg Oral Tablet - take 2 tablet by ORAL route every 12 hours; 120 tablet; Refills: 0, Product [facility] Selection Permitted Signatures: Dispatcher [employer] Robson Herrmann MD MD cha Calcote, Vanessa, RN RN vc1 Corrections: (The following items were deleted from the chart) 10/14 22:21 21:44 PROTIME (+INR)+COAG.LAB.BRZ ordered. MARISOLAK MARISOLAK 10/15 00:29 10/14 21:55 Suicide Screening ([place]) ordered. [facility] vc1
[2022-10-15 03:41] VITALS: O2SAT 96
[2022-10-15 03:42] VITALS: BP 141/88
--- NOTE | 2022-10-15 15:54 | RAD REPORT ---
EXAM DESCRIPTION: CT - Head Brain Wo Cont - 10/15/2022 6:55 am CLINICAL HISTORY: SEIZURE TECHNIQUE: Contiguous axial CT images obtained through the brain without IV contrast. Coronal and sa gittal reformatted images were provided. This exam was performed according to our departmental dose-optimization program, which includes autom ated exposure control, adjustment of the mA and/or kV according to patient size and/or use of iterati ve reconstruction technique. 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 No focal m ass effect. Hollingsworth-white matter differentiation is within normal limits. No hemorrhage. Ventricles: No ventriculomegaly or midline shift. Extra-axial spaces: No extra-axial collection or hemorrhage. Paranasal sinuses and mastoid air cells: Mild paranasal sinus mucosal thickening, likely chronic. Bones: Multiple calvarial surgical defects bilaterally Soft tissues: Unremarkable IMPRESSION: 1. No acute intracranial or extra-axial abnormality. 2. 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 3. Multiple calvarial surgical defects bilaterally. Electronically signed by: Alejo Vega MD 10/15/2022 1:19 AM CDT Due to temporary technical issues with the PACS/Fluency reporting system, reports are being signed b y the in house radiologists without review as a courtesy to insure prompt reporting. The interpreting radiologist is fully responsible for the content of the report.
--- NOTE | 2022-10-15 16:27 | EKG ---
Test Date: 2022-10-15 Test Time: 00:19:25 Transportation Maintenance Worker: SCARLET MEASUREMENT RESULTS: Intervals: Rate: 101 MT: 174 QRSD: 90 QT: 346 QTc: 448 [place]: P: 58 MT: 174 QRS: 59 T: 72 INTERPRETIVE STATEMENTS: Sinus tachycardia with premature ventricular complexes or fusion complexes Possible Left atrial enlargement Borderline ECG Compared to ECG 02/09/2021 02:11:14 Fusion complex(es) now present Ventricular premature complex(es) now present Myocardial infarct finding no longer present Electronically Signed On 10-15-22 16:25:36 CDT by Dax Ni
--- NOTE | 2022-10-16 13:06 | EKG ---
Test Date: 2022-10-15 Test Time: 00:20:52 [employer] Loader: SCARLET MEASUREMENT RESULTS: Intervals: Rate: 92 [place]: QRSD: 84 QT: 350 QTc: 432 [place]: P: [place]: QRS: 59 T: 50 INTERPRETIVE STATEMENTS: Sinus rhythm Abnormal ECG Compared to ECG 10/15/2022 00:19:25 Sinus tachycardia no longer present Fusion complex(es) no longer present Ventricular premature complex(es) no longer present Electronically Signed On 10-16-22 13:04:44 CDT by Dax Ni
== END 2022-10-15 02:06 | disposition home or self-care (01) ==
LOC: ER 21:25
DX: G40.509 Epileptic seizures related to external causes, not intractable, without status epilepticus (principal); E87.6 Hypokalemia; I10 Essential (primary) hypertension
CPT/HCPCS: 93005; 85025; 80048; 36415; 83735; 85610; 80076; 85730; 84484; 83690; 83880; 70450; 71045; 80143; 80179; 82077; J2550; J3480; J1953